=== PATIENT | female | born 1945 | race Caucasian/White ===

== ENCOUNTER → 2016-10-01 | Outpatient (CLI) | payer MEDICARE, MEDICAID | LOC: OD 07:35 | PROVIDERS: ATTEND Internal Medicine | DX: I50.32 Chronic diastolic (congestive) heart failure (principal); I10 Essential (primary) hypertension; I25.10 Atherosclerotic heart disease of native coronary artery without angina pectoris; Z95.1 Presence of aortocoronary bypass graft; R01.1 Cardiac murmur, unspecified; E78.4 Other hyperlipidemia; I47.1 Supraventricular tachycardia; J44.9 Chronic obstructive pulmonary disease, unspecified; J45.998 Other asthma; R09.89 Other specified symptoms and signs involving the circulatory and respiratory systems; E11.9 Type 2 diabetes mellitus without complications; Z79.899 Other long term (current) drug therapy | CPT/HCPCS: 83880 ==

== ENCOUNTER → 2016-10-09 | Outpatient (CLI) | payer MEDICARE, MEDICAID ==
[2016-10-09 08:27] LABS: APPEARANCE,URINE SLIGHTLY-CLOUDY; BILIRUBIN,URINE NEGATIVE (NEGATIVE); GLUCOSE, URINE NEGATIVE (NEGATIVE); KETONES,URINE NEGATIVE (NEGATIVE); LEUKOCYTE ESTERASE,URINE SMALL (NEGATIVE); NITRITE,URINE POSITIVE (NEGATIVE); PROTEIN,URINE NEGATIVE (NEGATIVE); URINE SPECIFIC GRAVITY 1.019; UROBILINOGEN,URINE NEGATIVE mg/dL (<2.0)
[2016-10-09 08:28] LABS: ABSOLUTE BASOPHILS # (AUTO) 0.1 10^3/uL (0.0-0.2); ABSOLUTE EOSINOPHILS # (AUTO) 0.1 10^3/uL (0.0-0.6); ABSOLUTE LYMPHOCYTES (AUTO) 4.2 10^3/uL (0.5-4.7); ABSOLUTE MONOCYTES (AUTO) 0.7 10^3/uL (0.1-1.4); ABSOLUTE NEUT (AUTO) 6.1 10^3/uL (1.7-8.2); BASOPHILS % (AUTO) 0.8 % (0-2); EOSINOPHILS % (AUTO) 0.9 % (0-6); HEMATOCRIT 38.7 % (36.0-47.0); HEMOGLOBIN 12.2 g/dL (12.0-15.5); HGB HCT DIFFERENCE -2.1; LYMPHOCYTES % (AUTO) 37.3 % (13-45); MEAN CORPUSCULAR HEMOGLOBIN 24.6 pg (27.0-33.4); MEAN CORPUSCULAR HGB CONC 31.5 g/dL (32.0-36.0); MEAN CORPUSCULAR VOLUME 78 fl (80-97); MONOCYTES % (AUTO) 6.6 % (3-13); RED BLOOD COUNT 4.96 10^6/uL (3.72-5.28); RED CELL DISTRIBUTION WIDTH 24.2 % (11.5-14.0); SEGMENTED NEUTROPHILS % (AUTO) 54.4 % (42-78); WHITE BLOOD COUNT 11.2 10^3/uL (4.0-10.5)
[2016-10-09 08:49] LABS: ANISOCYTOSIS 3+; OVALOCYTES SLIGHT; POIKILOCYTOSIS SLIGHT; POLYCHROMASIA SLIGHT; STOMATOCYTES 1+; TOXIC GRANULATION SLIGHT
[2016-10-09 08:57] LABS: ALANINE AMINOTRANSFERASE 25 U/L (9-52); ALBUMIN 3.6 g/dL (3.5-5.0); ALKALINE PHOSPHATASE 61 U/L (38-126); ANION GAP 7 (5-19); ASPARTATE AMINO TRANSFERASE 13 U/L (14-36); BILIRUBIN,TOTAL 0.4 mg/dL (0.2-1.3); BLOOD UREA NITROGEN 24 mg/dL (7-20); CALCIUM 9.4 mg/dL (8.4-10.2); CARBON DIOXIDE 29 mmol/L (22-30); CHLORIDE 106 mmol/L (98-107); CHOLESTEROL 189.87 mg/dL (0-200); CREATININE RESULT 0.75 mg/dL (0.52-1.25); Direct HDL 65 mg/dL (>40); GLUCOSE 73 mg/dL (75-110); POTASSIUM 4.2 mmol/L (3.6-5.0); SODIUM 141.8 mmol/L (137-145); TOTAL PROTEIN 6.2 g/dL (6.3-8.2); TRIGLYCERIDES 91 mg/dL (<150)
[2016-10-09 09:07] LABS: DIRECT LDL 95 mg/dL (<100)
[2016-10-09 09:25] LABS: FERRITIN 9.11 ng/mL (11.1-264.0)
== END ==
LOC: OD 07:25
PROVIDERS: ATTEND Internal Medicine Nephrology
DX: E11.9 Type 2 diabetes mellitus without complications (principal); E78.5 Hyperlipidemia, unspecified; D64.9 Anemia, unspecified; R33.9 Retention of urine, unspecified
CPT/HCPCS: 36415; 80053; 80061; 81001; 82728; 83036; 83540; 83550; 85025; 87086; 87088; 87186

== ENCOUNTER → 2016-11-01 | Outpatient (CLI) | payer MEDICARE, MEDICAID ==
[2016-11-01 08:41] LABS: AMORPHOUS SEDIMENT,URINE TRACE /HPF; APPEARANCE,URINE CLEAR; BILIRUBIN,URINE NEGATIVE (NEGATIVE); GLUCOSE, URINE NEGATIVE (NEGATIVE); KETONES,URINE NEGATIVE (NEGATIVE); LEUKOCYTE ESTERASE,URINE NEGATIVE (NEGATIVE); NITRITE,URINE NEGATIVE (NEGATIVE); PROTEIN,URINE NEGATIVE (NEGATIVE); URINE SPECIFIC GRAVITY 1.009; UROBILINOGEN,URINE NEGATIVE mg/dL (<2.0)
[2016-11-01 08:52] LABS: ABSOLUTE EOSINOPHILS # (AUTO) 0.1 10^3/uL (0.0-0.6); ABSOLUTE LYMPHOCYTES (AUTO) 3.3 10^3/uL (0.5-4.7); ABSOLUTE MONOCYTES (AUTO) 0.7 10^3/uL (0.1-1.4); BASOPHILS % (AUTO) 0.4 % (0-2); EOSINOPHILS % (AUTO) 0.9 % (0-6); HEMATOCRIT 37.9 % (36.0-47.0); HGB HCT DIFFERENCE -1.9; LYMPHOCYTES % (AUTO) 32.3 % (13-45); MEAN CORPUSCULAR HEMOGLOBIN 25.2 pg (27.0-33.4); MEAN CORPUSCULAR HGB CONC 31.7 g/dL (32.0-36.0); MEAN CORPUSCULAR VOLUME 80 fl (80-97); RED BLOOD COUNT 4.77 10^6/uL (3.72-5.28); SEGMENTED NEUTROPHILS % (AUTO) 59.4 % (42-78); WHITE BLOOD COUNT 10.1 10^3/uL (4.0-10.5)
[2016-11-01 09:09] LABS: ANION GAP 9 (5-19); BLOOD UREA NITROGEN 25 mg/dL (7-20); CALCIUM 9.5 mg/dL (8.4-10.2); CARBON DIOXIDE 31 mmol/L (22-30); CHLORIDE 106 mmol/L (98-107); CREATININE RESULT 0.64 mg/dL (0.52-1.25); GLUCOSE 67 mg/dL (75-110); POTASSIUM 3.6 mmol/L (3.6-5.0); SODIUM 145.6 mmol/L (137-145)
--- NOTE | 2016-11-01 10:23 | EKG REPORT ---
SEVERITY:- ABNORMAL ECG - PACEMAKER SPIKES OR ARTIFACTS SINUS RHYTHM PROBABLE LEFT ATRIAL ABNORMALITY : Confirmed by: Osiris Rider 01-Nov-2016 10:22:19
== END ==
LOC: OD 07:34
PROVIDERS: ATTEND Orthopaedic Surgery
DX: Z01.818 Encounter for other preprocedural examination (principal); Z01.810 Encounter for preprocedural cardiovascular examination; Z01.812 Encounter for preprocedural laboratory examination
CPT/HCPCS: 36415; 71020; 80048; 81001; 85025; 93005; 93010

== ENCOUNTER 2016-11-16 21:20 | Inpatient (IN) | payer MEDICARE, MEDICAID ==
--- NOTE | 2016-11-16 21:26 | ER Document Report ---
ED Medical Screen (RME) - General Stated Complaint: DIFFICULTY BREATHING Notes: Maninder states that is having increased difficulty breathing since Saturday night. Did have a fever 101.7, patient is coughing and wheezing. Patient is on 3 L of oxygen during the day, 5 L at night with CPAP. Patient has history of COPD. I have greeted and performed a rapid initial assessment of this patient. A comprehensive ED assessment and evaluation of the patient, analysis of test results and completion of the medical decision making process will be conducted by additional ED providers. TRAVEL OUTSIDE OF THE [place] IN LAST 30 DAYS: No - Related Data Allergies/Adverse Reactions: vancomycin Allergy (Verified 07/29/16 11:57) Generalized Itching levofloxacin Adverse Reaction (Verified 07/29/16 14:06) Diarrhea linezolid [From Zyvox] Adverse Reaction (Verified 07/29/16 14:06) Diarrhea Past Medical History - Past Medical History Cardiac Medical History: Reports: Hx Congestive Heart Failure - Lasix , Hx Coronary Artery Disease - CABG, Hx Hypercholesterolemia - zocor , Hx Hypertension Denies: Hx Atrial Fibrillation, Hx DVT, Hx Heart Attack, Hx Peripheral Vascular Disease, Hx Pulmonary Embolism, Hx Heart Murmur Pulmonary Medical History: Reports: Hx Asthma, Hx COPD, Hx Pneumonia - MRSA 2014 , Hx Sleep Apnea - bipap , Hx Tuberculosis - +PPD in s - on meds x 1 year Denies: Hx Bronchitis, Hx Respiratory Failure Neurological Medical History: Denies: Hx Cerebrovascular Accident, Hx Seizures Endocrine Medical History: Reports: Hx Diabetes Mellitus Type 1, Hx Diabetes Mellitus Type 2. Denies: Hx Graves' Disease, Hx Hyperthyroidism, Hx Hypothyroidism Renal/ Medical History: Denies: Hx End Stage Renal Disease, Hx Kidney Stones, Hx Ovarian Cysts, Hx Peritoneal Dialysis, Hx Pelvic Inflammatory Disease Malignancy Medical History: Denies: Hx Breast Cancer, Hx Cervical Cancer, Hx Leukemia, Hx Lung Cancer, Hx Ovarian Cancer GI Medical History: Reports: Hx Gastroesophageal Reflux Disease. Denies: Hx Cirrhosis, Hx Crohn's Disease, Hx Hepatitis, Hx Hiatal Hernia, Hx Irritable Bowel, Hx Liver Failure, Hx Ulcer Musculoskeltal Medical History: Reports Hx Arthritis, Denies Hx Fibromyalgia, Denies Hx Muscular Dystrophy Skin Medical History: Denies Hx Eczema, Denies Hx Psoriasis Psychiatric Medical History: Reports: Hx Anxiety, Hx Depression Denies: Hx Bipolar Disorder, Hx Post Traumatic Stress Disorder, Hx Schizophrenia Traumatic Medical History: Reports: Hx Fractures - lumbar Infectious Medical History: Reports: Hx MRSA - Reported MRSA pneumonia, 2015. Denies: Hx Hepatitis, Hx HIV Past Surgical History: Reports: Hx Appendectomy, Hx Cardiac Surgery - CABGx2, Hx Cholecystectomy, Hx Coronary Artery Bypass Graft - 2009 x 2 grafts , Hx Hysterectomy, Hx Open Heart Surgery - 3v, Hx Orthopedic Surgery - Left footsurgery, cyst removal from left hand, Hx Tonsillectomy. Denies: Hx Bowel Surgery, Hx Section, Hx Colostomy, Hx Gastric Bypass Surgery, Hx Herniorrhaphy, Hx Mastectomy, Hx Pacemaker, Hx Tubal Ligation - Immunizations Hx Diphtheria, Pertussis, Tetanus Vaccination: Yes Physical Exam - Respiratory Respiratory status: Labored, Pursed lip breathing Breath sounds: Decreased air movement, Wheezing - audible wheezing
[2016-11-16 21:55] LABS: ABSOLUTE BASOPHILS # (AUTO) 0.1 10^3/uL (0.0-0.2); ABSOLUTE LYMPHOCYTES (AUTO) 1.6 10^3/uL (0.5-4.7); ABSOLUTE NEUT (AUTO) 10.9 10^3/uL (1.7-8.2); BASOPHILS % (AUTO) 0.7 % (0-2); EOSINOPHILS % (AUTO) 0.2 % (0-6); HEMOGLOBIN 11.8 g/dL (12.0-15.5); HGB HCT DIFFERENCE -1.6; MEAN CORPUSCULAR HEMOGLOBIN 24.8 pg (27.0-33.4); MEAN CORPUSCULAR HGB CONC 31.8 g/dL (32.0-36.0); MEAN CORPUSCULAR VOLUME 78 fl (80-97); MONOCYTES % (AUTO) 7.1 % (3-13); RED BLOOD COUNT 4.75 10^6/uL (3.72-5.28); RED CELL DISTRIBUTION WIDTH 18.2 % (11.5-14.0); WHITE BLOOD COUNT 13.6 10^3/uL (4.0-10.5)
[2016-11-16] MEDS ORDERED: ALBUTEROL SULFATE 0.083% NEB 2.5 MG/3 ML AMPUL NEB ONE ×3 (22:10→22:56)
[2016-11-16] MEDS ORDERED: IPRATROPIUM/ALBUTEROL 0.5-2.5 MG/3 ML AMPUL NEB ONE ×2 (22:10→22:12)
[2016-11-16] MEDS ORDERED: METHYLPREDNISOLONE INJ 125 MG/2 ML SDV IV ONE (22:10)
[2016-11-16 22:15] LABS: ALANINE AMINOTRANSFERASE 19 U/L (9-52); ALBUMIN 3.8 g/dL (3.5-5.0); ALKALINE PHOSPHATASE 77 U/L (38-126); ANION GAP 11 (5-19); ASPARTATE AMINO TRANSFERASE 12 U/L (14-36); BILIRUBIN,DIRECT 0.1 mg/dL (0.0-0.4); BILIRUBIN,TOTAL 0.7 mg/dL (0.2-1.3); BLOOD UREA NITROGEN 14 mg/dL (7-20); CALCIUM 9.6 mg/dL (8.4-10.2); CARBON DIOXIDE 26 mmol/L (22-30); CHLORIDE 103 mmol/L (98-107); CREATININE RESULT 0.78 mg/dL (0.52-1.25); GLUCOSE 108 mg/dL (75-110); POTASSIUM 3.9 mmol/L (3.6-5.0); SODIUM 139.7 mmol/L (137-145)
[2016-11-16] MEDS ORDERED: MAGNESIUM SULFATE/D5W 1 GM/100 ML RTUPB IV ONE ×2 (22:56)
--- NOTE | 2016-11-16 23:12 | ER Document Report ---
ED Respiratory Problem - General Chief Complaint: Breathing Difficulty Stated Complaint: DIFFICULTY BREATHING Time seen by provider: 23:12 Mode of Arrival: Ambulatory Information source: Patient TRAVEL OUTSIDE OF THE [place] IN LAST 30 DAYS: No - HPI Patient complains to provider of: COPD, Cough, Short of breath Onset: Other - 2-3 days Duration: Worse/persistent Initiating Event: URI Quality of pain: No pain Severity: Moderate Context: Hx COPD Short of Breath: Severe Chest pain/discomfort: Tightness Cough: Nonproductive At home treatment: Bronchodilators, Oral steroids, Oxygen Associated symptoms: Cough, Difficulty breathing, Short of breath Similar symptoms previously: Yes Recently seen / treated by doctor: Yes Notes: Patient is a 71-year-old female with a history of COPD, who is a former smoker, who presents to the emergency room today complaining of difficulty breathing that's been worsening over the past 2-3 days, she reports a fever of 101 today, her cough is nonproductive, she used her albuterol nebulizer treatments 3 times throughout the day today with minimal intermittent relief, she is on 3 L of oxygen at home daily, with C Pap to use at night, she is also currently on prednisone, patient denies chest pain - Related Data Allergies/Adverse Reactions: vancomycin Allergy (Verified 07/29/16 11:57) Generalized Itching levofloxacin Adverse Reaction (Verified 07/29/16 14:06) Diarrhea linezolid [From Zyvox] Adverse Reaction (Verified 07/29/16 14:06) Diarrhea Past Medical History - General Information source: Patient - Social History Smoking Status: Former Smoker Chew tobacco use (# tins/day): No Frequency of alcohol use: None Drug Abuse: None Family History: DM, Hypertension Patient has suicidal ideation: No Patient has homicidal ideation: No - Past Medical History Cardiac Medical History: Reports: Hx Congestive Heart Failure - Lasix , Hx Coronary Artery Disease - CABG, Hx Hypercholesterolemia - zocor , Hx Hypertension Denies: Hx Atrial Fibrillation, Hx DVT, Hx Heart Attack, Hx Peripheral Vascular Disease, Hx Pulmonary Embolism, Hx Heart Murmur Pulmonary Medical History: Reports: Hx Asthma, Hx COPD, Hx Pneumonia - MRSA 2014 , Hx Sleep Apnea - bipap , Hx Tuberculosis - +PPD in s - on meds x 1 year Denies: Hx Bronchitis, Hx Respiratory Failure Neurological Medical History: Denies: Hx Cerebrovascular Accident, Hx Seizures Endocrine Medical History: Reports: Hx Diabetes Mellitus Type 1, Hx Diabetes Mellitus Type 2. Denies: Hx Graves' Disease, Hx Hyperthyroidism, Hx Hypothyroidism Renal/ Medical History: Denies: Hx End Stage Renal Disease, Hx Kidney Stones, Hx Ovarian Cysts, Hx Peritoneal Dialysis, Hx Pelvic Inflammatory Disease Malignancy Medical History: Denies: Hx Breast Cancer, Hx Cervical Cancer, Hx Leukemia, Hx Lung Cancer, Hx Ovarian Cancer GI Medical History: Reports: Hx Gastroesophageal Reflux Disease. Denies: Hx Cirrhosis, Hx Crohn's Disease, Hx Hepatitis, Hx Hiatal Hernia, Hx Irritable Bowel, Hx Liver Failure, Hx Ulcer Musculoskeltal Medical History: Reports Hx Arthritis, Denies Hx Fibromyalgia, Denies Hx Muscular Dystrophy Skin Medical History: Denies Hx Eczema, Denies Hx Psoriasis Psychiatric Medical History: Reports: Hx Anxiety, Hx Depression Denies: Hx Bipolar Disorder, Hx Post Traumatic Stress Disorder, Hx Schizophrenia Traumatic Medical History: Reports: Hx Fractures - lumbar Infectious Medical History: Reports: Hx MRSA - Reported MRSA pneumonia, 2014. Denies: Hx Hepatitis, Hx HIV Past Surgical History: Reports: Hx Appendectomy, Hx Cardiac Surgery - CABGx2, Hx Cholecystectomy, Hx Coronary Artery Bypass Graft - 2008 x 2 grafts , Hx Hysterectomy, Hx Open Heart Surgery - 3v, Hx Orthopedic Surgery - Left footsurgery, cyst removal from left hand, Hx Tonsillectomy. Denies: Hx Bowel Surgery, Hx Section, Hx Colostomy, Hx Gastric Bypass Surgery, Hx Herniorrhaphy, Hx Mastectomy, Hx Pacemaker, Hx Tubal Ligation - Immunizations Hx Diphtheria, Pertussis, Tetanus Vaccination: Yes Hx Pneumococcal Vaccination: 08/26/12 Review of Systems - Review of Systems Constitutional: No symptoms reported EENT: No symptoms reported Cardiovascular: No symptoms reported Respiratory: See HPI Gastrointestinal: No symptoms reported Genitourinary: No symptoms reported Female Genitourinary: No symptoms reported Musculoskeletal: No symptoms reported Skin: No symptoms reported Hematologic/Lymphatic: No symptoms reported Neurological/Psychological: No symptoms reported -: Yes All other systems reviewed and negative Physical Exam - Vital signs Vitals: Resp BP Pulse Ox 35 H 125/78 91 L 11/16/16 22:15 11/16/16 22:15 11/16/16 22:15 Interpretation: Tachycardic, Hypoxic - General General appearance: Alert In distress: Moderate - HEENT Head: Normocephalic, Atraumatic Eyes: Normal Conjunctiva: Normal Extraocular movements intact: Yes Eyelashes: Normal Pupils: PERRL Pharynx: Normal Neck: Normal - Respiratory Respiratory status: Labored, Pursed lip breathing, Tachypnea Chest status: Nontender Breath sounds: Decreased air movement, Nonproductive cough, Wheezing Chest palpation: Normal - Cardiovascular Rhythm: Regular, Tachycardia Heart sounds: Normal auscultation Murmur: No - Abdominal Inspection: Normal Distension: No distension Bowel sounds: Normal Tenderness: Nontender Organomegaly: No organomegaly - Back Back: Normal, Nontender - Extremities General upper extremity: Normal inspection, Nontender, Normal color, Normal ROM , Normal temperature General lower extremity: Normal inspection, Nontender, Normal color, Normal ROM , Normal temperature, Normal weight bearing. No: Boogie's sign - Neurological Neuro grossly intact: Yes Cognition: Normal Orientation: AAOx4 Dmitry Coma Scale Eye Opening: Spontaneous Dmitry Coma Scale Verbal: Oriented Dmitry Coma Scale Motor: Obeys Commands [place] Coma Scale Total: 15 Speech: Normal Motor strength normal: LUE, RUE, LLE, RLE Sensory: Normal - Psychological Associated symptoms: Normal affect, Normal mood - Skin Skin Temperature: Warm Skin Moisture: Dry Skin Color: Normal Course - Re-evaluation Re-evalutation: 11/17/16 03:23 Patient resting comfortably on BiPAP, discussed with the hospitalist who agrees to admit for further evaluation and treatment of COPD exacerbation with likely viral upper respiratory illness - Vital Signs Vital signs: Temp Pulse Resp BP Pulse Ox 29 H 113/51 L 86 L 11/17/16 01:00 11/17/16 01:00 11/17/16 01:00 - Laboratory Result Diagrams: 11/16/16 21:47 11/16/16 21:47 Laboratory results interpreted by me: 11/16/16 11/16/16 21:47 21:47 WBC 13.6 H Hgb 11.8 L MCV 78 L MCH 24.8 L MCHC 31.8 L RDW 18.2 H Seg Neutrophils % 80.0 H Lymphocytes % 12.0 L Absolute Neutrophils 10.9 H AST 12 L Total Protein 6.0 L - Diagnostic Test Radiology reviewed: Image reviewed, Reports reviewed - EKG Interpretation by Me EKG shows normal: Sinus rhythm Rate: Normal Rhythm: NSR When compared to previous EKG there are: No significant change - Transfer of Care Care transferred to following provider: Dr. Mahoney Critical Care Note - Critical Care Note Total time excluding time spent on procedures (mins): 60 Comments: Patient with COPD exacerbation, hypoxic on arrival, requiring multiple breathing treatments, multiple re-evaluations and eventually BiPAP placement and admission to the IMCU Discharge - Discharge Clinical Impression: Obstructive chronic bronchitis with exacerbation Condition: Serious Disposition: ADMITTED INPATIENT Admitting Provider: Hospitalist Unit Admitted: [facility]
[2016-11-16] MEDS ORDERED: AZITHROMYCIN INJ 500 MG VIAL IV ONE (23:27)
[2016-11-16 23:33] LABS: CREATINE KINASE MB 0.25 ng/mL (<4.55); TROPONIN I 0.014 ng/mL
[2016-11-17 01:41] LABS: VENOUS BLOOD BASE EXCESS 2.6 mmol/L; VENOUS BLOOD HCO3 28.3 mmol/L (20-32); VENOUS BLOOD PCO2 48.2 mmHg (35-63); VENOUS BLOOD PH 7.39 (7.30-7.42)
[2016-11-17] MEDS ORDERED: ALBUTEROL SULFATE 0.083% NEB 2.5 MG/3 ML AMPUL NEB ONE (02:01)
[2016-11-17] MEDS ORDERED: GLUCAGON,HUMAN RECOMB 1 MG INJ IM PRN (02:49)
[2016-11-17] MEDS ORDERED: DEXTROSE 40% GEL 15 GM TUBE PO PRN ×2 (02:49)
[2016-11-17] MEDS ORDERED: DEXTROSE 50%-WATER 25 GM/50 ML DISP.SYRIN IV PRN ×2 (02:49)
[2016-11-17] MEDS ORDERED: NICOTINE 14 MG/24 HR PATCH.TD24 TD PRN (02:50)
[2016-11-17] MEDS ORDERED: ACETAMINOPHEN 325 MG TABLET PO PRN (02:51)
[2016-11-17] MEDS ORDERED: GUAIFENESIN SYRP 200 MG/10 ML UDC PO PRN (02:51)
[2016-11-17] MEDS ORDERED: CEFEPIME 2 GM/D5W RTU 2 GM/50 ML RTUPB IV SCH (03:00)
--- NOTE | 2016-11-17 03:23 | PDOC H&P ---
History of Present Illness Admission Date/PCP: 11/17/16 01:[address] Hamilton Pul[address] Dr[address] Garcia Patient complains of: Difficulty breathing History of Present Illness: DAGO GRAFF is a 71 year old female, long-term smoker, half a pack per day at present, with 3 L oxygen per nasal cannula 24/7 Home O2 dependent COPD, who presents to the emergency room for evaluation of a 2 to three-day history of slowly progressive difficulty breathing, in particular with much of any exertion. Mostly a dry cough. Fever to 101. Increased use of albuterol nebulizer at home, without relief. No chest or abdominal pain. No nausea vomiting, fever or chills. Has been intubated 3 times in the past for respiratory difficulty. Hospitalized on our service August 05 through the of last year with discharge diagnoses including aspiration pneumonia with respiratory failure and hypoglycemia. Discharge summary has been reviewed. Was admitted to our service May 22 of last year for cough and shortness of breath. History and physical has been reviewed. Patient has been discussed with emergency room physician who evaluated the patient. . Laboratory results are listed in [employer] and are reviewed. X-ray summary results are listed below, with full report(s) reviewed. . EKG reviewed. Social history/personal habits: . One son. Retired. No alcohol or illicit drug use. Half-pack of cigarettes per day. Allergies/adverse reactions are listed in [employer] and are reviewed. Home medications are to [facility] reconc[facility]. Home medications initially autopopulated into [facility] may not accurately reflect patient's true medications, dosages, and/or frequencies. REVIEW OF SYSTEMS: Constitutional: See history and present illness. Eyes: Wears glasses. ENT: No swallowing problems or complaints. No hearing problems or complaints. Pulmonary: See history and present illness. Cardiovascular: No current complaints, including chest pain. Gastrointestinal: No current complaints, including nausea or vomiting. Skin: No current complaints, including rashes. Hematologic: Easy bruising. Neurologic: No current complaints, including numbness or tingling. Musculoskeletal: Joint pain from arthritis. Psychiatric: Anxiety Endocrine: No current complaints, including polyuria. Genitourinary: No current complaints, including dysuria. PHYSICAL EXAMINATION: 5 feet 1 inches tall. 75 kg. BMI 31.2 kg/m. Temperature not recorded on chart; skin feels normothermic. Blood pressure 116/56. Pulse 84 and regular. 93% saturation on BiPAP 12/6, 65% FiO2. Respirations are 28 and unlabored. Slightly obese otherwise well-developed though chronically ill-appearing female who appears a number of years older than her stated age. Awake alert pleasant and cooperative. Appears to feel a bit under the weather, so to speak. Mildly anxious. No agitation. Skin is warm and dry. No grossly obvious evidence of rash in areas of skin examined. No subcutaneous nodules palpated. ENT: Hearing grossly normal Mildly hard of hearing to normal conversation. Tongue midline on protrusion pink and slightly tacky. Exam slightly limited by BiPAP mask with attaching straps. Eyes: No scleral icterus. Pupils equal and reactive to light at 4 mm. [place] conjunctivae. Neck is supple and nontender to gentle active range of motion and palpation. Midline trachea. No palpable thyroid nodule mass enlargement or tenderness. Lymphatic: No palpable cervical or clavicular nodes. Neck and lymphatic exams limited by patient body habitus. Exam slightly limited by BiPAP mask with attaching straps. Psychiatric: Reasonable insight into acute and chronic medical issues. Oriented to time location and why here. Lungs: Auscultation reveals equal breath sounds bilaterally. No use of accessory respiratory muscles. Coarse breath sounds bilaterally, with primarily expiratory wheezing. Patient states she typically does not wheeze on a regular day. Cardiovascular: Heart regular rate and rhythm, without gallop murmur or rub. No abdominal aortic bruits. Airway sounds from BiPAP device make it difficult to auscultate carotid bruits. No ankle or pedal edema. Faintly palpable dorsalis pedis pulses. Abdomen: soft, slightly obese, nontender with positive bowel sounds. Unable to adequately evaluate abdomen for masses or organomegaly due to body habitus. Extremities: Feet are warm and dry. No calf tenderness to compression. No grossly obvious visual evidence of calf swelling. Gentle manipulation of lower extremities fails to reveal any obvious evidence of injury or instability to knees hips or ankles. Neurologic: Moves upper extremities grossly normally. Patellar reflexes absent. Absent Babinski. Light touch is intact at feet. Dorsiflexion and plantarflexion of feet 5 / 5 and symmetric. Past Medical History Past Medical History: For further information related to her medical history, please refer to history and present illness, May [id number]. Cardiac Medical History: Reports: Congestive Heart Failure - Lasix , Coronary Artery Disease - CABG, Hyperlipidema - zocor , Hypertension Denies: Atrial Fibrillation, DVT, Myocardial Infarction, Peripheral Vascular Disease, Pulmonary Embolism, Heart Murmur Pulmonary Medical History: Reports: Asthma, Chronic Obstructive Pulmonary Disease (COPD), Pneumonia - MRSA 2014 , Sleep Apnea - bipap , Tuberculosis - + PPD in 1960s - on meds x 1 year Denies: Bronchitis, Respiratory Failure Neurological Medical History: Denies: Seizures Endocrine Medical History: Reports: Diabetes Mellitus Type 1 Denies: Hyperthyroidism, Hypothyroidism Renal/ Medical History: Denies: End Stage Renal Disease Malignancy Medical History: Denies: Breast Cancer, Cervical Cancer, Leukemia, Lung Cancer, Ovarian Cancer GI Medical History: Reports: Gastroesophageal Reflux Disease Denies: Cirrhosis, Crohn's Disease, Hepatitis, Hiatal Hernia Musculoskeltal Medical History: Reports: Arthritis Denies: Fibromyalgia Skin Medical History: Denies: Eczema, Psoriasis Psychiatric Medical History: Reports: Depression Denies: Bipolar Disorder, Post Traumatic Stress Disorder Hematology: Reports: Anemia - occ Denies: Hemophilia, Sickle Cell Disease Infectious Medical History: Reports: 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 MRSA pneumonia, 2014 Denies: Clostridium Difficile, HIV Past Surgical History Past Surgical History: Reports: Appendectomy, Cholecystectomy, Coronary Artery Bypass Graft - 2009 x 2 grafts , Hysterectomy, Orthopedic Surgery - Left footsurgery, cyst removal from left hand, Tonsillectomy Denies: Amputation, Section, Colostomy, Gastric Bypass Surgery, Herniorrhaphy, Mastectomy, Pacemaker, Tubal Ligation Social History Information Source: Patient, Emergency Med Personnel, [facility] Records Lives with: Spouse/Significant other Smoking Status: Current Every Day Smoker Frequency of Alcohol Use: None Hx Recreational Drug Use: No Drugs: None Hx Prescription Drug Abuse: No - Advance Directive Resuscitation Status: Full Code Surrogate healthcare decision maker:: Family History Family History: CAD, DM, Hypertension Parental Family History Reviewed: Yes Children Family History Reviewed: Yes Sibling(s) Family History Reviewed.: Yes Medication/Allergy Home Medications: Aspirin [Aspirin EC] 81 mg PO DAILY 11/17/16 Atorvastatin Calcium [Lipitor 40 mg Tablet] 40 mg PO QHS 11/17/16 Cyanocobalamin (Vitamin B-12) [Vitamin B-12 500 mcg Tablet] 500 mcg PO QAM 11/17 Insulin Aspart [Novolog Flexpen] 0 unit SUBCUT .PERSLDINGSCALE 11/17/16 Insulin Glargine,Hum.rec.anlog [Lantus Solostar] 15 unit SQ QHS 11/17/16 Iron Polysaccharide Complex [Ferrex 150] 150 mg PO DAILY 11/17/16 Lidocaine [Lidoderm] 1 each TP Q12 11/17/16 Losartan Potassium [Cozaar 25 mg Tablet] 25 mg PO DAILY 11/17/16 Metoprolol Succinate [Toprol Xl 25 mg Tab.sr] 25 mg PO Q12 11/17/16 Nitroglycerin [Nitro-Dur 10 mg (0.4MG/Hr) Transdermal Patch] 1 each TD DAILY Olopatadine HCl [Pataday] 2.5 ml OU ASDIR PRN 11/17/16 Oxycodone HCl/Acetaminophen [Percocet 10-325 Mg Tablet] 1 tab PO Q6HP PRN Potassium Chloride [Klor-Con 10 Meq Tablet.sa] 10 meq PO DAILY 11/17/16 Prednisone [Deltasone 5 mg Tablet] 5 mg PO Q2D 11/17/16 Prednisone [Deltasone 5 mg Tablet] 5 mg PO Q3D 11/17/16 Pregabalin [Lyrica 50 Mg Capsule] 50 mg PO Q8 11/17/16 RX: Omeprazole 20 mg PO DAILY 11/17/16 RX: Theophylline Anhydrous 300 mg PO DAILY 11/17/16 Ranolazine [Ranexa 500 mg Tab.sr] 500 mg PO Q12 11/17/16 Roflumilast [Daliresp 500 mcg Tablet] 500 mcg PO DAILY 11/17/16 Ropinirole HCl [Requip 2 Mg Tablet] 2 mg PO QHS 11/17/16 Torsemide [Demadex 20 mg Tablet] 20 mg PO DAILY 11/17/16 Allergies/Adverse Reactions: vancomycin Allergy (Verified 07/29/16 11:57) Generalized Itching levofloxacin Adverse Reaction (Verified 07/29/16 14:06) Diarrhea linezolid [From Zyvox] Adverse Reaction (Verified 07/29/16 14:06) Diarrhea Physical Exam Vital Signs: Temp Pulse Resp BP Pulse Ox 29 H 113/51 L 86 L 11/17/16 01:00 11/17/16 01:00 11/17/16 01:00 Intake & Output 11/16/16 11/17/16 11/18/16 00:59 00:59 00:59 Weight 75 kg Results Impressions: Chest X-Ray 11/16/16 21:30 IMPRESSION: COPD. NO ACUTE RADIOGRAPHIC FINDING IN THE CHEST OR SIGNIFICANT CHANGE FROM PRIOR STUDY. Assessment & Plan - Diagnosis (1) Type 1 diabetes mellitus Qualifiers: Diabetes mellitus complication status: with unspecified complications Qualified Code(s): E10.8 - Type 1 diabetes mellitus with unspecified complications Is this a current diagnosis for this admission?: YesPlan: Ice chips only while on BiPAP. Accu-Cheks with appropriate sliding scale coverage.Resume home medications as appropriate once these have been determined and reviewed. (2) Acute and chronic respiratory failure with hypercapnia Is this a current diagnosis for this admission?: YesPlan: Patient will be admitted under COPD exacerbation protocol. Incentive spirometry twice a day. Scheduled DuoNeb's. PRN albuterol nebs Solu-Medrol Prevacid for gastritis prophylaxis. Antibiotics will consist of intravenous Zithromax and cefepime. Rapid flu is pending.. I strongly encouraged patient to notify staff should patient feel that respiratory status is worsening. Patient is a full code. I have strongly encouraged patient not to get out of bed without notifying staff , , to avoid a fall with injury. Knee high SCDs for DVT prophylaxis, along with subcutaneous Lovenox Impression and plans were discussed with patient, who concurs. Time spent in evaluation and management of patient: 59 minutes. (3) COPD exacerbation Is this a current diagnosis for this admission?: Yes (4) Hyperlipidemia Qualifiers: Hyperlipidemia type: unspecified Qualified Code(s): E78.5 - Hyperlipidemia, unspecified Is this a current diagnosis for this admission?: YesPlan: Resume home medications as appropriate once these have been determined and reviewed. (5) Hypertension Qualifiers: Hypertension type: essential hypertension Qualified Code(s): I10 - Essential (primary) hypertension Is this a current diagnosis for this admission?: YesPlan: Resume home medications as appropriate once these have been determined and reviewed. (6) Obstructive sleep apnea Is this a current diagnosis for this admission?: YesPlan: CPAP once BiPAP is no longer required. (7) Tobacco dependency Is this a current diagnosis for this admission?: YesPlan: When necessary nicotine patch. - Inpatient Certification Based on my medical assessment, after consideration of the patient's comorbidities, presenting symptoms, or acuity I expect that the services needed warrant INPATIENT care.: Yes I certify that my determination is in accordance with my understanding of Medicare's requirements for reasonable and necessary INPATIENT services [42 CFR 412.3e].: Yes Medical Necessity: Significant Comorbidiites Make Outpatient Treatment Too Risky , Need Close Monitoring Due to Risk of Patient Decompensation, Need For IV Fluids, Need For Continuous Telemetry Monitoring, Need for Nebulizer Therapy and Monitoring of Response, Need for IV Antibiotics, Risk of Complication if Not Cared For in Hospital, Risk of Diagnosis Which Will Require Inpatient Eval/ Care/Monitoring Post Hospital Care: D/C or Transfer Summary
[2016-11-17] MEDS ORDERED: CEFEPIME INJ 1 GM VIAL IV PRN (03:28)
[2016-11-17 05:26] LABS: VENOUS BLOOD HCO3 28.8 mmol/L (20-32); VENOUS BLOOD PCO2 48.9 mmHg (35-63); VENOUS BLOOD PH 7.39 (7.30-7.42)
[2016-11-17 05:27] LABS: ABSOLUTE LYMPHOCYTES (AUTO) 0.8 10^3/uL (0.5-4.7); ABSOLUTE MONOCYTES (AUTO) 0.1 10^3/uL (0.1-1.4); ABSOLUTE NEUT (AUTO) 12.3 10^3/uL (1.7-8.2); BASOPHILS % (AUTO) 0.3 % (0-2); HEMATOCRIT 35.5 % (36.0-47.0); HEMOGLOBIN 11.3 g/dL (12.0-15.5); HGB HCT DIFFERENCE -1.6; MEAN CORPUSCULAR HEMOGLOBIN 24.6 pg (27.0-33.4); MEAN CORPUSCULAR HGB CONC 31.9 g/dL (32.0-36.0); MEAN CORPUSCULAR VOLUME 77 fl (80-97); MONOCYTES % (AUTO) 0.6 % (3-13); RED BLOOD COUNT 4.61 10^6/uL (3.72-5.28); RED CELL DISTRIBUTION WIDTH 17.3 % (11.5-14.0); SEGMENTED NEUTROPHILS % (AUTO) 93.1 % (42-78); WHITE BLOOD COUNT 13.2 10^3/uL (4.0-10.5)
[2016-11-17] MEDS: POTASSI CL 20 MEQ/NS 1L 1,000 ML IV PRN ×2 (05:39→16:52)
[2016-11-17 05:45] LABS: ANION GAP 13 (5-19); BLOOD UREA NITROGEN 15 mg/dL (7-20); CALCIUM 9.2 mg/dL (8.4-10.2); CARBON DIOXIDE 27 mmol/L (22-30); CHLORIDE 100 mmol/L (98-107); CREATININE RESULT 0.77 mg/dL (0.52-1.25); GLUCOSE 189 mg/dL (75-110); POTASSIUM 3.7 mmol/L (3.6-5.0); SODIUM 139.9 mmol/L (137-145)
[2016-11-17 06:14] LABS: APPEARANCE,URINE SLIGHTLY-CLOUDY; BILIRUBIN,URINE NEGATIVE (NEGATIVE); GLUCOSE, URINE NEGATIVE (NEGATIVE); KETONES,URINE NEGATIVE (NEGATIVE); LEUKOCYTE ESTERASE,URINE MODERATE (NEGATIVE); NITRITE,URINE NEGATIVE (NEGATIVE); PROTEIN,URINE NEGATIVE (NEGATIVE); URINE SPECIFIC GRAVITY 1.012; UROBILINOGEN,URINE NEGATIVE mg/dL (<2.0)
[2016-11-17] MEDS ORDERED: INFLUENZA ADLT QUAD (36MOS+) 2016-17 VAC 0.5 ML SYR IM PRN (08:34)
[2016-11-17] MEDS: IPRATROPIUM/ALBUTEROL 0.5-2.5 MG/3 ML AMPUL NEB SCH ×3 (08:35→19:31)
[2016-11-17] MEDS ORDERED: CEFEPIME HCL 2 GM in DEXTROSE 5%-WATER 50 ML IV SCH (10:00)
--- NOTE | 2016-11-17 10:22 | EKG REPORT ---
SEVERITY:- NORMAL ECG - SINUS RHYTHM : Confirmed by: Ming Coates MD 17-Nov-2016 10:21:44
[2016-11-17] MEDS: ENOXAPARIN SODIUM INJ 40 MG/0.4 ML DISP.SYRIN SUBCUT SCH (10:32)
[2016-11-17] MEDS: INSULIN LISPRO 100 UNIT/ML 3 ML VIAL SUBCUT PRN ×3 (10:32→22:11)
[2016-11-17] MEDS: LANSOPRAZOLE 30 MG TAB.RAP.DR PO SCH ×2 (10:33→16:54)
[2016-11-17] MEDS: METHYLPREDNISOLONE INJ 125 MG/2 ML SDV IV SCH ×3 (10:33→22:11)
[2016-11-17] MEDS ORDERED: (PENDING PHARMACY ID) (Olopatadine Hcl [Pataday] 2.5 ML) OU PRN (12:32)
--- NOTE | 2016-11-17 13:39 | PDOC PROGRESS REPORT ---
Subjective Progress Note for:: 11/17/16 Subjective:: Reason for visit: Follow-up COPD exacerbation, acute on chronic hypoxic respiratory failure Hospital course: Per H&P "DAGO GRAFF is a 71 year old female, long-term smoker, half a pack per day at present, with 3 L oxygen per nasal cannula during the day and 5 L at night. Home O2 dependent COPD, who presents to the emergency room for evaluation of a 2 to three-day history of slowly progressive difficulty breathing, in particular with much of any exertion. Mostly a dry cough. Fever to 101. Increased use of albuterol nebulizer at home , without relief. No chest or abdominal pain. No nausea vomiting, fever or chills. Has been intubated 3 times in the past for respiratory difficulty. Hospitalized on our service August 05 through the of last year while diagnoses including aspiration pneumonia with respiratory failure and hypoglycemia. Discharge summary has been reviewed. Was admitted to our service May 22 of last year for cough and shortness of breath. History and physical has been reviewed." Patient remains on BiPAP failing brief attempts to come off with increased shortness of breath and chest tightness. Review of the old record in July 2016 she underwent echocardiogram that showed 2/4 diastolic dysfunction, mild aortic stenosis, mild aortic regurgitation and mitral regurgitation, mild pulmonary hypertension. In September of this year she had a hemoglobin A1c of 6.0 Her cardiac enzymes, in particular her troponin, are chronically mildly elevated at the level they are now. Subjective: Continues to complain of chest tightness, wheezing, breathlessness with minimal exertion, fatigue, headache, general malaise and aches and pains. ROS: per HPI plus a total of 10 systems reviewed, pertinent positives and negatives noted above, remaining systems negative. Physical Exam Vital Signs: Temp Pulse Resp BP Pulse Ox 97.8 F 82 17 110/47 L 96 11/17/16 06:40 11/17/16 08:35 11/17/16 11:18 11/17/16 06:40 11/17/16 08:35 Intake & Output 11/16/16 11/17/16 11/18/16 06:59 06:59 06:59 Weight 73.5 kg EXAM GENERAL: NAD; well developed, well nourished; mild obese; alert and oriented to person, place, time, situation HEENT: normocephalic, atraumatic; no conjunctival injection, no scleral icterus ; oral mucosa moist; BiPAP mask in place RESPIRATORY: Abdominal accessory muscle use, mild increased WOB, poor air entry bilaterally; diffuse rhonchi; diffuse inspiratory crackles CARDIO: no JVD; RRR; no systolic murmur; no tachycardia GI: soft; nondistended; normal bowel sounds; no hepato spleno megaly; no rebound, rigidity, guarding VASCULAR: no carotid bruit; no abdominal bruit; no pallor; 2+ radial, DP pulse ; normal capillary refill EXTREMITIES: no calf tender; no palpable cords in calf; no clubbing, cyanosis , trace pedal edema PSYCH: normal affect, normal mood SKIN: warm; dry; no petechiae; no telengectasias; no jaundice; no rash Results Laboratory Results: 11/17/16 05:19 11/17/16 05:19 11/17/16 11/17/16 11/17/16 05:19 05:19 05:19 WBC 13.2 H RBC 4.61 Hgb 11.3 L Hct 35.5 L MCV 77 L MCH 24.6 L MCHC 31.9 L RDW 17.3 H Plt Count 258 Seg Neutrophils % 93.1 H Lymphocytes % 6.0 L Monocytes % 0.6 L Eosinophils % 0.0 Basophils % 0.3 Absolute Neutrophils 12.3 H Absolute Lymphocytes 0.8 Absolute Monocytes 0.1 Absolute Eosinophils 0.0 Absolute Basophils 0.0 VBG pH 7.39 VBG pCO2 48.9 VBG HCO3 28.8 VBG Base Excess 3.0 Sodium 139.9 Potassium 3.7 Chloride 100 Carbon Dioxide 27 Anion Gap 13 BUN 15 Creatinine 0.77 Est GFR ( Amer) > 60 Est GFR (Non-Af Amer) > 60 Glucose 189 H Calcium 9.2 Urine Color Urine Appearance Urine pH Ur Specific [place] Urine Protein Urine Glucose (UA) Urine Ketones Urine Blood Urine Nitrite Ur Leukocyte Esterase Urine WBC (Auto) Urine RBC (Auto) 11/17/16 05:42 WBC RBC Hgb Hct MCV MCH MCHC RDW Plt Count Seg Neutrophils % Lymphocytes % Monocytes % Eosinophils % Basophils % Absolute Neutrophils Absolute Lymphocytes Absolute Monocytes Absolute Eosinophils Absolute Basophils VBG pH VBG pCO2 VBG HCO3 VBG Base Excess Sodium Potassium Chloride Carbon Dioxide Anion Gap BUN Creatinine Est GFR ( Amer) Est GFR (Non-Af Amer) Glucose Calcium Urine Color YELLOW Urine Appearance SLIGHTLY-CLOUDY Urine pH 5.0 Ur Specific [place] 1.012 Urine Protein NEGATIVE Urine Glucose (UA) NEGATIVE Urine Ketones NEGATIVE Urine Blood NEGATIVE Urine Nitrite NEGATIVE Ur Leukocyte Esterase MODERATE H Urine WBC (Auto) 13 Urine RBC (Auto) 2 Impressions: Chest X-Ray 11/16/16 21:30 IMPRESSION: COPD. NO ACUTE RADIOGRAPHIC FINDING IN THE CHEST OR SIGNIFICANT CHANGE FROM PRIOR STUDY. Assessment & Plan - Diagnosis (1) Acute and chronic respiratory failure with hypoxia Is this a current diagnosis for this admission?: Yes (2) Acute and chronic respiratory failure with hypercapnia Is this a current diagnosis for this admission?: Yes (3) COPD exacerbation Is this a current diagnosis for this admission?: Yes (4) Type 1 diabetes mellitus Qualifiers: Diabetes mellitus complication status: with unspecified complications Qualified Code(s): E10.8 - Type 1 diabetes mellitus with unspecified complications Is this a current diagnosis for this admission?: Yes (5) Obstructive sleep apnea Is this a current diagnosis for this admission?: Yes (6) Tobacco dependency Is this a current diagnosis for this admission?: Yes - Time Time Spent with patient: 25-34 minutes Medications reviewed and adjusted accordingly: Yes - Plan Summary Plan Summary: Continue broad-spectrum antibiotics, scheduled and as needed nebulizer therapy, systemic steroids, supplemental O2, and wean BiPAP as tolerated. Continue home medicines for chronic medical conditions GI prophylaxis with PPI therapy and heparin for DVT prophylaxis
[2016-11-17] MEDS: PREGABALIN 50 MG CAPSULE PO SCH ×2 (13:48→22:12)
[2016-11-17] MEDS: OXYCODONE HCL IR 5 MG TABLET PO PRN ×2 (14:00→22:10)
[2016-11-17] MEDS ORDERED: LIDOCAINE 5% (700 MG) TRANSDERMAL ADH..PATCH TP ONE (14:00)
[2016-11-17] MEDS ORDERED: THEOPHYLLINE ANHYDROUS 300 MG TAB.SR.12H PO ONE (14:00)
[2016-11-17] MEDS ORDERED: LIDOCAINE 5% (700 MG) TRANSDERMAL ADH..PATCH TP SCH (22:00)
[2016-11-17] MEDS: ATORVASTATIN CALCIUM 40 MG TABLET PO SCH (22:11)
[2016-11-17] MEDS: INSULIN GLARGINE,HUM.REC.ANLOG 300 UNIT/3 ML INSULN.PEN SUBCUT SCH (22:11)
[2016-11-17] MEDS: ROPINIROLE HCL 2 MG TABLET PO SCH (22:12)
[2016-11-17] MEDS: RANOLAZINE 500 MG TAB.SR.12H PO SCH (22:12)
[2016-11-17] MEDS: AZITHROMYCIN 500 MG in DEXTROSE 5%-WATER 250 ML IV SCH (22:12)
[2016-11-17] MEDS: ALBUTEROL SULFATE 0.083% NEB 2.5 MG/3 ML AMPUL NEB PRN (23:59)
[2016-11-18] MEDS: ALBUTEROL SULFATE 0.083% NEB 2.5 MG/3 ML AMPUL NEB PRN (04:04)
[2016-11-18] MEDS: POTASSI CL 20 MEQ/NS 1L 1,000 ML IV PRN (04:10)
[2016-11-18] MEDS: PREGABALIN 50 MG CAPSULE PO SCH ×3 (06:15→22:28)
[2016-11-18] MEDS: METHYLPREDNISOLONE INJ 125 MG/2 ML SDV IV SCH ×3 (06:15→22:28)
[2016-11-18 06:16] LABS: HEMATOCRIT 33.1 % (36.0-47.0); HGB HCT DIFFERENCE -3.1; MEAN CORPUSCULAR HEMOGLOBIN 24.1 pg (27.0-33.4); MEAN CORPUSCULAR HGB CONC 30.4 g/dL (32.0-36.0); MEAN CORPUSCULAR VOLUME 80 fl (80-97); RED BLOOD COUNT 4.16 10^6/uL (3.72-5.28); RED CELL DISTRIBUTION WIDTH 17.7 % (11.5-14.0); WHITE BLOOD COUNT 18.3 10^3/uL (4.0-10.5)
[2016-11-18] MEDS: LANSOPRAZOLE 30 MG TAB.RAP.DR PO SCH ×2 (06:16→16:16)
[2016-11-18 06:37] LABS: BAND NEUTROPHILS % (MANUAL) 2 % (3-5); BASOPHILS % (MANUAL) 0 % (0-2); EOSINOPHILS % (MANUAL) 0 % (0-6); LYMPHOCYTES % (MANUAL) 2 % (13-45); TOTAL CELLS COUNTED 100
[2016-11-18 06:40] LABS: ANISOCYTOSIS 1+; HYPOCHROMASIA SLIGHT; MICROCYTOSIS SLIGHT; POLYCHROMASIA SLIGHT; TOXIC GRANULATION SLIGHT
[2016-11-18 06:41] LABS: ANION GAP 10 (5-19); BLOOD UREA NITROGEN 23 mg/dL (7-20); CARBON DIOXIDE 24 mmol/L (22-30); CHLORIDE 113 mmol/L (98-107); CREATININE RESULT 0.75 mg/dL (0.52-1.25); GLUCOSE 199 mg/dL (75-110); POTASSIUM 4.3 mmol/L (3.6-5.0); SODIUM 146.8 mmol/L (137-145)
[2016-11-18] MEDS ORDERED: (PENDING PHARMACY ID) (Cyanocobalamin (Vitamin B-12) [Vitamin B-12 500 Mcg Tablet] 500 MCG PO SCH (08:00)
[2016-11-18] MEDS: IPRATROPIUM/ALBUTEROL 0.5-2.5 MG/3 ML AMPUL NEB SCH ×3 (08:21→20:41)
[2016-11-18] MEDS ORDERED: THEOPHYLLINE ANHYDROUS 300 MG TAB.SR.12H PO SCH (10:00)
[2016-11-18] MEDS ORDERED: LIDOCAINE 5% (700 MG) TRANSDERMAL ADH..PATCH TP SCH (10:00)
[2016-11-18] MEDS: INSULIN LISPRO 100 UNIT/ML 3 ML VIAL SUBCUT PRN ×3 (11:10→17:43)
[2016-11-18] MEDS: ENOXAPARIN SODIUM INJ 40 MG/0.4 ML DISP.SYRIN SUBCUT SCH (11:11)
[2016-11-18] MEDS: NITROGLYCERIN 10 MG (0.4 MG/HR) PATCH.TD24 TD SCH (11:12)
[2016-11-18] MEDS: CYANOCOBALAMIN (VITAMIN B-12) 1,000 MCG TABLET PO SCH (11:13)
[2016-11-18] MEDS: RANOLAZINE 500 MG TAB.SR.12H PO SCH ×2 (11:13→22:27)
[2016-11-18] MEDS: ASPIRIN 81 MG TABLET, ENT COATED PO SCH (11:14)
[2016-11-18] MEDS: POTASSIUM CHLORIDE 10 MEQ TABLET.SA PO SCH (11:14)
[2016-11-18] MEDS: TORSEMIDE 20 MG TABLET PO SCH (11:14)
[2016-11-18] MEDS: LOSARTAN POTASSIUM 25 MG TABLET PO SCH (11:15)
[2016-11-18] MEDS: CEFEPIME HCL 2 GM in DEXTROSE 5%-WATER 50 ML IV SCH ×2 (11:17→22:28)
[2016-11-18] MEDS ORDERED: HYDROCODONE BIT/HOMATROPINE 5-1.5 MG TABLET PO PRN (12:11)
--- NOTE | 2016-11-18 12:16 | PDOC PROGRESS REPORT ---
Subjective Progress Note for:: 11/18/16 Subjective:: Reason for visit: Follow-up COPD exacerbation, acute on chronic hypoxic respiratory failure Hospital course: Per H&P "DAGO GRAFF is a 71 year old female, long-term smoker, half a pack per day at present, with 3 L oxygen per nasal cannula during the day and 5 L at night. Home O2 dependent COPD, who presents to the emergency room for evaluation of a 2 to three-day history of slowly progressive difficulty breathing, in particular with much of any exertion. Mostly a dry cough. Fever to 101. Increased use of albuterol nebulizer at home , without relief. No chest or abdominal pain. No nausea vomiting, fever or chills. Has been intubated 3 times in the past for respiratory difficulty. Hospitalized on our service August 05 through the of last year while diagnoses including aspiration pneumonia with respiratory failure and hypoglycemia. Discharge summary has been reviewed. Was admitted to our service May 22 of last year for cough and shortness of breath. History and physical has been reviewed." Patient remains on BiPAP failing brief attempts to come off with increased shortness of breath and chest tightness. Review of the old record in July 2016 she underwent echocardiogram that showed 2/4 diastolic dysfunction, mild aortic stenosis, mild aortic regurgitation and mitral regurgitation, mild pulmonary hypertension. In September of this year she had a hemoglobin A1c of 6.0 Her cardiac enzymes, in particular her troponin, are chronically mildly elevated at the level they are now. Subjective: Continues to complain of chest tightness, wheezing, breathlessness with minimal exertion, fatigue, headache, general malaise and aches and pains - no real improvement from before. ROS: per HPI plus a total of 10 systems reviewed, pertinent positives and negatives noted above, remaining systems negative. Physical Exam Vital Signs: Temp Pulse Resp BP Pulse Ox 97.4 F 105 H 22 H 133/50 H 93 11/18/16 08:16 11/18/16 08:21 11/18/16 08:21 11/18/16 08:16 11/18/16 08:21 Intake & Output 11/17/16 11/18/16 11/19/16 06:59 06:59 06:59 Intake Total 2250 Balance 2250 Weight 73.5 kg 76.7 kg EXAM GENERAL: NAD; well developed, well nourished; mild obese; alert and oriented to person, place, time, situation HEENT: normocephalic, atraumatic; no conjunctival injection, no scleral icterus ; oral mucosa moist; BiPAP mask in place RESPIRATORY: Abdominal accessory muscle use, mild increased WOB, poor air entry bilaterally; diffuse rhonchi; diffuse inspiratory crackles- no change from before CARDIO: no JVD; RRR; no systolic murmur; tachycardia GI: soft; nondistended; normal bowel sounds; no rebound, rigidity, guarding VASCULAR: no pallor; 2+ radial, DP pulse; normal capillary refill EXTREMITIES: no calf tender; no palpable cords in calf; no clubbing, cyanosis , trace pedal edema PSYCH: normal affect, normal mood SKIN: warm; dry; no petechiae; no telengectasias; no jaundice; no rash Results Laboratory Results: 11/18/16 05:50 11/18/16 05:50 11/18/16 11/18/16 05:50 05:50 WBC 18.3 H RBC 4.16 Hgb 10.0 L Hct 33.1 L MCV 80 MCH 24.1 L MCHC 30.4 L RDW 17.7 H Plt Count 248 Seg Neutrophils % Not Reportable Lymphocytes % Not Reportable Monocytes % Not Reportable Eosinophils % Not Reportable Basophils % Not Reportable Absolute Neutrophils Not Reportable Absolute Lymphocytes Not Reportable Absolute Monocytes Not Reportable Absolute Eosinophils Not Reportable Absolute Basophils Not Reportable Sodium 146.8 H Potassium 4.3 Chloride 113 H Carbon Dioxide 24 Anion Gap 10 BUN 23 H Creatinine 0.75 Est GFR ( Amer) > 60 Est GFR (Non-Af Amer) > 60 Glucose 199 H Calcium 9.0 Assessment & Plan - Diagnosis (1) Acute and chronic respiratory failure with hypoxia Is this a current diagnosis for this admission?: Yes (2) Acute and chronic respiratory failure with hypercapnia Is this a current diagnosis for this admission?: Yes (3) COPD exacerbation Is this a current diagnosis for this admission?: Yes (4) Type 1 diabetes mellitus Qualifiers: Diabetes mellitus complication status: with unspecified complications Qualified Code(s): E10.8 - Type 1 diabetes mellitus with unspecified complications Is this a current diagnosis for this admission?: Yes (5) Obstructive sleep apnea Is this a current diagnosis for this admission?: Yes (6) Tobacco dependency Is this a current diagnosis for this admission?: Yes - Time Time Spent with patient: 25-34 minutes - Plan Summary Plan Summary: Very slow to improve, continue current treatment. BiPAP until respiratory distress improves. Nursing, and over well, state that it usually takes several days for her to turn around from a COPD exacerbation. Her reports they both "got the flu at the same time" but she is much sicker than he. She screened negative for the flu on this admission, but may have picked up another respiratory virus to account for her slow improvement. The severe nature of her fixed lung disease, of course puts her at risk for gram-negative organisms including Pseudomonas.
[2016-11-18] MEDS: OXYCODONE HCL IR 5 MG TABLET PO PRN (22:27)
[2016-11-18] MEDS: ATORVASTATIN CALCIUM 40 MG TABLET PO SCH (22:27)
[2016-11-18] MEDS: INSULIN GLARGINE,HUM.REC.ANLOG 300 UNIT/3 ML INSULN.PEN SUBCUT SCH (22:28)
[2016-11-18] MEDS: ROPINIROLE HCL 2 MG TABLET PO SCH (22:29)
[2016-11-18] MEDS: AZITHROMYCIN 500 MG in DEXTROSE 5%-WATER 250 ML IV SCH (22:30)
[2016-11-19] MEDS: ALBUTEROL SULFATE 0.083% NEB 2.5 MG/3 ML AMPUL NEB PRN ×2 (00:09→04:51)
[2016-11-19] MEDS: METHYLPREDNISOLONE INJ 125 MG/2 ML SDV IV SCH ×3 (06:04→22:04)
[2016-11-19] MEDS: PREGABALIN 50 MG CAPSULE PO SCH ×3 (06:04→22:03)
[2016-11-19] MEDS: LANSOPRAZOLE 30 MG TAB.RAP.DR PO SCH ×2 (06:04→17:36)
[2016-11-19 06:19] LABS: HEMATOCRIT 33.9 % (36.0-47.0); HEMOGLOBIN 10.7 g/dL (12.0-15.5); HGB HCT DIFFERENCE -1.8; MEAN CORPUSCULAR HGB CONC 31.4 g/dL (32.0-36.0); MEAN CORPUSCULAR VOLUME 80 fl (80-97); RED BLOOD COUNT 4.27 10^6/uL (3.72-5.28); RED CELL DISTRIBUTION WIDTH 17.8 % (11.5-14.0)
[2016-11-19 07:33] LABS: BASOPHILS % (MANUAL) 0 % (0-2); EOSINOPHILS % (MANUAL) 0 % (0-6); LYMPHOCYTES % (MANUAL) 5 % (13-45); TOTAL CELLS COUNTED 100
[2016-11-19 07:34] LABS: ANISOCYTOSIS 1+; HYPOCHROMASIA SLIGHT; MICROCYTOSIS SLIGHT; OVALOCYTES 1+; POIKILOCYTOSIS 1+; POLYCHROMASIA SLIGHT; TOXIC GRANULATION SLIGHT; TOXIC VACUOLATION PRESENT
[2016-11-19] MEDS: IPRATROPIUM/ALBUTEROL 0.5-2.5 MG/3 ML AMPUL NEB SCH ×3 (08:29→20:10)
[2016-11-19] MEDS: ENOXAPARIN SODIUM INJ 40 MG/0.4 ML DISP.SYRIN SUBCUT SCH (08:51)
[2016-11-19] MEDS: CYANOCOBALAMIN (VITAMIN B-12) 1,000 MCG TABLET PO SCH (08:51)
[2016-11-19] MEDS: INSULIN LISPRO 100 UNIT/ML 3 ML VIAL SUBCUT PRN ×2 (08:51→22:04)
[2016-11-19] MEDS: LOSARTAN POTASSIUM 25 MG TABLET PO SCH (10:32)
[2016-11-19] MEDS: RANOLAZINE 500 MG TAB.SR.12H PO SCH ×2 (10:32→22:03)
[2016-11-19] MEDS: ASPIRIN 81 MG TABLET, ENT COATED PO SCH (10:33)
[2016-11-19] MEDS: TORSEMIDE 20 MG TABLET PO SCH (10:33)
[2016-11-19] MEDS: NITROGLYCERIN 10 MG (0.4 MG/HR) PATCH.TD24 TD SCH (10:33)
[2016-11-19] MEDS: POTASSIUM CHLORIDE 10 MEQ TABLET.SA PO SCH (10:33)
[2016-11-19] MEDS: CEFEPIME HCL 2 GM in DEXTROSE 5%-WATER 50 ML IV SCH ×2 (10:34→22:03)
[2016-11-19 12:10] LABS: ARTERIAL BLOOD BASE EXCESS -0.4 mmol/L; ARTERIAL BLOOD O2 SATURATION 87.5 % (94-98)
--- NOTE | 2016-11-19 14:09 | PDOC CONSULTATION ---
Consultation Consult Date: 11/19/16 Attending physician:: VADIM CARDONA Consult reason:: chronic resp failure History of Present Illness Admission Date/PCP: 11/17/16 02:51 History of Present Illness: DAGO GRAFF is a 71 year old female, long-term smoker, half a pack per day at present, with 3 L oxygen per nasal cannula 24/7 Home O2 dependent COPD, who presents to the emergency room for evaluation of a 2 to three-day history of slowly progressive difficulty breathing, in particular with much of any exertion. Mostly a dry cough. Fever to 101. Increased use of albuterol nebulizer at home, without relief.She Has been intubated 3 times in the past for respiratory difficulty. Hospitalized August 05 through the of last year while diagnoses including aspiration pneumonia with respiratory failure and hypoglycemia. She states that the last 3 weeks is gotten progressively more short of breath admits to chronic dyspnea on exertion as well as shortness of breath and is wearing 3 L of O2 at home she denies a pop hemoptysis and a PPD was negative dates unknown. She has no history of chronic lung disease as a child or as an adolescent. She admits to exposure to passive smoke as a child. She is smell for smoke a pack and half a day for approximately 52 years and is currently smoking half pack a day despite being on home O2. She has worked in housekeeping and cleaning and has been exposed to chemicals from time to time. She has 2 dogs no recent travel. She denies angina-like chest pain sleeps on 2 pillows occasional PND occasional nocturnal cough and occasional edema. Per the patient she has a history of obstructive sleep apnea and has CPAP at home which she uses frequently. Past Medical History Cardiac Medical History: Reports: Congestive Heart Failure - Lasix , Coronary Artery Disease - CABG, Hyperlipidema - zocor , Hypertension Denies: Atrial Fibrillation, DVT, Myocardial Infarction, Peripheral Vascular Disease, Pulmonary Embolism, Heart Murmur Pulmonary Medical History: Reports: Asthma, Chronic Obstructive Pulmonary Disease (COPD), Pneumonia - MRSA 2014 , Sleep Apnea - bipap , Tuberculosis - + PPD in s - on meds x 1 year Denies: Bronchitis, Respiratory Failure Neurological Medical History: Denies: Seizures Endocrine Medical History: Reports: Diabetes Mellitus Type 1, Diabetes Mellitus Type 2 Denies: Hyperthyroidism, Hypothyroidism Renal/ Medical History: Denies: End Stage Renal Disease Malignancy Medical History: Denies: Breast Cancer, Cervical Cancer, Leukemia, Lung Cancer, Ovarian Cancer GI Medical History: Reports: Gastroesophageal Reflux Disease Denies: Cirrhosis, Crohn's Disease, Hepatitis, Hiatal Hernia Musculoskeltal Medical History: Reports: Arthritis Denies: Fibromyalgia Skin Medical History: Denies: Eczema, Psoriasis Psychiatric Medical History: Reports: Depression Denies: Bipolar Disorder, Post Traumatic Stress Disorder Hematology: Reports: Anemia - occ Denies: Hemophilia, Sickle Cell Disease Infectious Medical History: Reports: 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 MRSA pneumonia, 2015 Denies: Clostridium Difficile, HIV Past Surgical History Past Surgical History: Reports: Appendectomy, Cholecystectomy, Coronary Artery Bypass Graft - 2009 x 2 grafts , Hysterectomy, Orthopedic Surgery - Left footsurgery, cyst removal from left hand, Tonsillectomy Denies: Amputation, Section, Colostomy, Gastric Bypass Surgery, Herniorrhaphy, Mastectomy, Pacemaker, Tubal Ligation Social History Information Source: Patient, [facility] Records Lives with: Spouse/Significant other Smoking Status: Current Some Day Smoker Cigarettes Packs Per Day: 1 Passive smoke exposure as: Both Frequency of Alcohol Use: None Hx Recreational Drug Use: No Drugs: None Hx Prescription Drug Abuse: No Do you have pets?: Yes Have you had any respiratory illnesses as a child?: No Have you been exposed to any sick contacts recently?: No Have you travelled outside of [place] in the past 12 months?: No - Advance Directive Resuscitation Status: Full Code Family History Family History: DM, Hypertension Parental Family History Reviewed: No - Unaware history from family parents or siblings Children Family History Reviewed: Yes - Alive and well Sibling(s) Family History Reviewed.: Unknown Medication/Allergy Home Medications: Aspirin [Aspirin EC] 81 mg PO DAILY 11/17/16 Atorvastatin Calcium [Lipitor 40 mg Tablet] 40 mg PO QHS 11/17/16 Cyanocobalamin (Vitamin B-12) [Vitamin B-12 500 mcg Tablet] 500 mcg PO QAM 11/17 Insulin Aspart [Novolog Flexpen] 0 unit SUBCUT .PERSLDINGSCALE 11/17/16 Insulin Glargine,Hum.rec.anlog [Lantus Solostar] 15 unit SQ QHS 11/17/16 Iron Polysaccharide Complex [Ferrex 150] 150 mg PO DAILY 11/17/16 Lidocaine [Lidoderm] 1 each TP Q12 11/17/16 Losartan Potassium [Cozaar 25 mg Tablet] 25 mg PO DAILY 11/17/16 Metoprolol Succinate [Toprol Xl 25 mg Tab.sr] 25 mg PO Q12 11/17/16 Nitroglycerin [Nitro-Dur 10 mg (0.4MG/Hr) Transdermal Patch] 1 each TD DAILY Olopatadine HCl [Pataday] 2.5 ml OU ASDIR PRN 11/17/16 Omeprazole 20 mg PO DAILY 11/17/16 Oxycodone HCl/Acetaminophen [Percocet 10-325 Mg Tablet] 1 tab PO Q6HP PRN Potassium Chloride [Klor-Con 10 Meq Tablet.sa] 10 meq PO DAILY 11/17/16 Prednisone [Deltasone 5 mg Tablet] 5 mg PO Q2D 11/17/16 Prednisone [Deltasone 5 mg Tablet] 5 mg PO Q3D 11/17/16 Pregabalin [Lyrica 50 Mg Capsule] 50 mg PO Q8 11/17/16 Ranolazine [Ranexa 500 mg Tab.sr] 500 mg PO Q12 11/17/16 Roflumilast [Daliresp 500 mcg Tablet] 500 mcg PO DAILY 11/17/16 Ropinirole HCl [Requip 2 Mg Tablet] 2 mg PO QHS 11/17/16 Theophylline Anhydrous 300 mg PO DAILY 11/17/16 Torsemide [Demadex 20 mg Tablet] 20 mg PO DAILY 11/17/16 Allergies/Adverse Reactions: vancomycin Allergy (Verified 07/29/16 11:57) Generalized Itching levofloxacin Adverse Reaction (Verified 07/29/16 14:06) Diarrhea linezolid [From Zyvox] Adverse Reaction (Verified 07/29/16 14:06) Diarrhea Physical Exam Vital Signs: Temp Pulse Resp BP Pulse Ox 97.9 F 100 22 H 127/47 H 94 11/19/16 08:07 11/19/16 08:29 11/19/16 08:29 11/19/16 08:07 11/19/16 08:29 Intake & Output 11/18/16 11/19/16 11/20/16 06:59 06:59 06:59 Intake Total 2250 2900 Output Total 1900 Balance 2250 1000 Weight 76.7 kg General appearance: PRESENT: cooperative, disheveled, obese Head exam: PRESENT: atraumatic, normocephalic Eye exam: PRESENT: conjunctiva pale, EOMI Mouth exam: PRESENT: dry mucosa, neck supple Neck exam: ABSENT: carotid bruit, JVD, lymphadenopathy, thyromegaly Cardiovascular exam: PRESENT: RRR, +S1, +S2 Pulses: PRESENT: normal radial pulses GI/Abdominal exam: PRESENT: normal bowel sounds, soft. ABSENT: distended, guarding, mass, organolmegaly, rebound, tenderness Rectal exam: PRESENT: deferred Gentrourinary exam: PRESENT: indwelling catheter Musculoskeletal exam: PRESENT: normal inspection Neurological exam: PRESENT: alert, awake Psychiatric exam: PRESENT: normal mood Skin exam: PRESENT: dry, warm Results Laboratory Results: 11/19/16 06:05 11/18/16 05:50 11/19/16 06:05 WBC 19.0 H RBC 4.27 Hgb 10.7 L Hct 33.9 L MCV 80 MCH 25.0 L MCHC 31.4 L RDW 17.8 H Plt Count 263 Seg Neutrophils % Not Reportable Lymphocytes % Not Reportable Monocytes % Not Reportable Eosinophils % Not Reportable Basophils % Not Reportable Absolute Neutrophils Not Reportable Absolute Lymphocytes Not Reportable Absolute Monocytes Not Reportable Absolute Eosinophils Not Reportable Absolute Basophils Not Reportable 11/17/16 09:05 Nasophary (Mrsa Only) MRSA Surveillance Culture - Final MRSA RECOVERED Impressions: Chest X-Ray 11/16/16 21:30 IMPRESSION: COPD. NO ACUTE RADIOGRAPHIC FINDING IN THE CHEST OR SIGNIFICANT CHANGE FROM PRIOR STUDY. Assessment & Plan - Diagnosis (1) Acute and chronic respiratory failure with hypercapnia Is this a current diagnosis for this admission?: YesPlan: Continue noninvasive positive pressure ventilation as needed patient states she would like to be intubated so she can get a rest of his she clinically does not appear to be in significant distress history of CO2 retention that dates back to 2011 (2) Acute and chronic respiratory failure with hypoxia Is this a current diagnosis for this admission?: YesPlan: Patient states that she chokes 2-3 times per week on her food she is noted to have aspiration pneumonia in the past we will check a modified barium swallow prior testing was not noted in review of chart (3) Obstructive sleep apnea Is this a current diagnosis for this admission?: YesPlan: Continues to use BiPAP (4) Restless leg syndrome Is this a current diagnosis for this admission?: Yes (5) Tobacco dependency Is this a current diagnosis for this admission?: YesPlan: Transdermal nicotine
--- NOTE | 2016-11-19 14:33 | ST Inp Modified Barium Swallow ---
Medical Diagnosis - Medical Diagnoses Medical Diagnosis Description & ICD-10 Code(s): COPD ST Inpatient [facility] [place] - General Date: 11/19/16 Date of Onset: 09/26/16 - patient unable to give specific date of onset - History History Obtained From: Patient Medications: Medications Reviewed Allergies: Refer to medical record - no food allergies reported by patient - Subjective Current Nutritional Means: PO Current PO Diet: Regular Current Symptoms: c/o Globus sensation - states that she feels food "gets stuck in the throat" at times, and that she has to "throw up to get rid of it". Specifically complains of solids such as rice and chicken, no reported difficulty with liquids. States this may happen 1x per week. Pain: Patient reports, 0/5 - Objective Assessment: Upright, Left Lateral - Food Trials Food Trials Used: Thin liquids, Pureed, Regular The Patient: Was Able to Self Feed - Assessment Labial Function: Within Normal Limits Lingual Function: Within Normal Limits Mandibular Function: Within Normal Limits Dentition: Full Laryngeal Function: Throat Clear, Volitional Swallow, clear voicing - Pharyngeal Stage Initiation of Pharyngeal Stage: Normal Decreased Laryngeal Elevation: No Reduced Velo-Pharyngeal Closure: no Reduced Pressure Generation: No Reduced Tongue Base Retraction: Yes - mild Pre-Swallowing Pooling in Valleculae: None Pre-Swallowing Pooling in Pyriforms: None Reduced Thyro-Hyiod Approximation: No Reduced Epiglottic Excursion: No Reduced Pharyngeal Peristalsis: No Post Swallow Residuals in Valleculae: None Post Swallow Residuals in Pyriforms: None Post Swallow Residuals: tongue-base - mild to moderate residuals seen on posterior tongue-base with clara cracker trials, however, patient spontaneously completed multiple swallows which resolved residue. - Impression/Summary Laryngeal Penetration: No Tracheal Aspiration: no Effective Clearing: yes - residue cleared with multiple swallows Compensatory Strategies: spontaneous multiple swallows Patient Presents With: Normal swallow at eval Risk of Aspiration: Minimal Risk of Nutritional Compromise: WNL - Recommendations Solid Diet Recommendations: Regular Liquid Diet Recommendations: Thin Regular Diet: Yes Dysphagia Therapy with COFFEE SHOP AIDE: No Recommended Techniques: Fully Upright During Meal, Alternate Bites/Sips - COFFEE SHOP AIDE recommends frequent sips of liquid to prevent possible build up of residue on posterior tongue/tongue base. Patient states that she already takes sips of liquid frequently during meals. - Time Total Time: 25 Total Timed Minutes: 25
--- NOTE | 2016-11-19 15:50 | PDOC PROGRESS REPORT ---
Subjective Progress Note for:: 11/19/16 Subjective:: Reason for visit: Follow-up COPD exacerbation, acute on chronic hypoxic respiratory failure Hospital course: Per H&P "DAGO GRAFF is a 71 year old female, long-term smoker, half a pack per day at present, with 3 L oxygen per nasal cannula during the day and 5 L at night. Home O2 dependent COPD, who presents to the emergency room for evaluation of a 2 to three-day history of slowly progressive difficulty breathing, in particular with much of any exertion. Mostly a dry cough. Fever to 101. Increased use of albuterol nebulizer at home , without relief. No chest or abdominal pain. No nausea vomiting, fever or chills. Has been intubated 3 times in the past for respiratory difficulty. Hospitalized on our service August 05 through the of last year while diagnoses including aspiration pneumonia with respiratory failure and hypoglycemia. Discharge summary has been reviewed. Was admitted to our service May 22 of last year for cough and shortness of breath. History and physical has been reviewed." Patient remains on BiPAP failing brief attempts to come off with increased shortness of breath and chest tightness. Review of the old record in July 2016 she underwent echocardiogram that showed 2/4 diastolic dysfunction, mild aortic stenosis, mild aortic regurgitation and mitral regurgitation, mild pulmonary hypertension. In September of this year she had a hemoglobin A1c of 6.0 Her cardiac enzymes, in particular her troponin, are chronically mildly elevated at the level they are now. Subjective: Continues to complain of chest tightness, wheezing, breathlessness with minimal exertion, fatigue, headache, general malaise and aches and pains - no real improvement from before and is asking for intubation and mechanical ventilation "so I can get some rest". ROS: per HPI plus a total of 10 systems reviewed, pertinent positives and negatives noted above, remaining systems negative. Physical Exam Vital Signs: Temp Pulse Resp BP Pulse Ox 97.5 F 101 H 24 H 147/66 H 94 11/19/16 13:01 11/19/16 13:54 11/19/16 13:54 11/19/16 13:01 11/19/16 13:54 Intake & Output 11/18/16 11/19/16 11/20/16 06:59 06:59 06:59 Intake Total 2250 2900 720 Output Total 1900 900 Balance 2250 1000 -180 Weight 76.7 kg Results Laboratory Results: 11/19/16 06:05 11/18/16 05:50 11/19/16 11/19/16 06:05 11:55 WBC 19.0 H RBC 4.27 Hgb 10.7 L Hct 33.9 L MCV 80 MCH 25.0 L MCHC 31.4 L RDW 17.8 H Plt Count 263 Seg Neutrophils % Not Reportable Lymphocytes % Not Reportable Monocytes % Not Reportable Eosinophils % Not Reportable Basophils % Not Reportable Absolute Neutrophils Not Reportable Absolute Lymphocytes Not Reportable Absolute Monocytes Not Reportable Absolute Eosinophils Not Reportable Absolute Basophils Not Reportable Carbonic Acid 1.49 H HCO3/H2CO3 Ratio 17:1 ABG pH 7.34 L ABG pCO2 49.5 H ABG pO2 56.7 L ABG HCO3 25.9 ABG O2 Saturation 87.5 L ABG Base Excess -0.4 FiO2 6L 11/17/16 09:05 Nasophary ([facility] Only) MRSA Surveillance Culture - Final MRSA RECOVERED Impressions: Chest X-Ray 11/16/16 21:30 IMPRESSION: COPD. NO ACUTE RADIOGRAPHIC FINDING IN THE CHEST OR SIGNIFICANT CHANGE FROM PRIOR STUDY. Status: Imported from PACS Assessment & Plan - Diagnosis (1) Acute and chronic respiratory failure with hypoxia Is this a current diagnosis for this admission?: YesPlan: Unchanged and nowhere near her baseline (2) Acute and chronic respiratory failure with hypercapnia Is this a current diagnosis for this admission?: Yes (3) COPD exacerbation Is this a current diagnosis for this admission?: Yes (4) Type 1 diabetes mellitus Qualifiers: Diabetes mellitus complication status: with unspecified complications Qualified Code(s): E10.8 - Type 1 diabetes mellitus with unspecified complications Is this a current diagnosis for this admission?: Yes (5) Obstructive sleep apnea Is this a current diagnosis for this admission?: Yes (6) Tobacco dependency Is this a current diagnosis for this admission?: Yes - Time Time Spent with patient: 25-34 minutes - Plan Summary Plan Summary: I spoke with Dr. Aguilar who will see the patient in consultation as she is not really progressing since admission.
[2016-11-19] MEDS: BUDESONIDE NEB 0.5 MG/2 ML AMPUL NEB SCH (20:09)
[2016-11-19] MEDS: AZITHROMYCIN 250 MG TABLET PO SCH (22:02)
[2016-11-19] MEDS: ATORVASTATIN CALCIUM 40 MG TABLET PO SCH (22:03)
[2016-11-19] MEDS: ROPINIROLE HCL 2 MG TABLET PO SCH (22:03)
[2016-11-19] MEDS: OXYCODONE HCL IR 5 MG TABLET PO PRN (22:03)
[2016-11-19] MEDS: INSULIN GLARGINE,HUM.REC.ANLOG 300 UNIT/3 ML INSULN.PEN SUBCUT SCH (22:04)
[2016-11-19] MEDS: PHARMACY COMMUNICATION ORDER MC SCH (22:05)
[2016-11-20] MEDS: PREGABALIN 50 MG CAPSULE PO SCH ×3 (06:07→22:01)
[2016-11-20] MEDS: METHYLPREDNISOLONE INJ 125 MG/2 ML SDV IV SCH (06:07)
[2016-11-20] MEDS: LANSOPRAZOLE 30 MG TAB.RAP.DR PO SCH ×2 (06:07→16:36)
[2016-11-20 06:28] LABS: ABSOLUTE LYMPHOCYTES (AUTO) 0.8 10^3/uL (0.5-4.7); ABSOLUTE MONOCYTES (AUTO) 0.4 10^3/uL (0.1-1.4); ABSOLUTE NEUT (AUTO) 10.8 10^3/uL (1.7-8.2); BASOPHILS % (AUTO) 0.1 % (0-2); HEMATOCRIT 34.5 % (36.0-47.0); HEMOGLOBIN 10.8 g/dL (12.0-15.5); HGB HCT DIFFERENCE -2.1; LYMPHOCYTES % (AUTO) 6.5 % (13-45); MEAN CORPUSCULAR HEMOGLOBIN 24.7 pg (27.0-33.4); MEAN CORPUSCULAR HGB CONC 31.4 g/dL (32.0-36.0); MEAN CORPUSCULAR VOLUME 79 fl (80-97); RED BLOOD COUNT 4.39 10^6/uL (3.72-5.28); RED CELL DISTRIBUTION WIDTH 17.3 % (11.5-14.0); SEGMENTED NEUTROPHILS % (AUTO) 90.4 % (42-78)
[2016-11-20 06:53] LABS: ANION GAP 13 (5-19); BLOOD UREA NITROGEN 41 mg/dL (7-20); CALCIUM 9.2 mg/dL (8.4-10.2); CARBON DIOXIDE 28 mmol/L (22-30); CHLORIDE 106 mmol/L (98-107); CREATININE RESULT 0.88 mg/dL (0.52-1.25); GLUCOSE 163 mg/dL (75-110); POTASSIUM 4.4 mmol/L (3.6-5.0)
[2016-11-20] MEDS: BUDESONIDE NEB 0.5 MG/2 ML AMPUL NEB SCH ×2 (07:45→20:06)
[2016-11-20] MEDS: IPRATROPIUM/ALBUTEROL 0.5-2.5 MG/3 ML AMPUL NEB SCH ×3 (07:45→20:06)
[2016-11-20] MEDS: ENOXAPARIN SODIUM INJ 40 MG/0.4 ML DISP.SYRIN SUBCUT SCH (08:10)
[2016-11-20] MEDS: CYANOCOBALAMIN (VITAMIN B-12) 1,000 MCG TABLET PO SCH (08:11)
[2016-11-20] MEDS: INSULIN LISPRO 100 UNIT/ML 3 ML VIAL SUBCUT PRN ×3 (08:14→22:00)
[2016-11-20] MEDS: NITROGLYCERIN 10 MG (0.4 MG/HR) PATCH.TD24 TD SCH (10:08)
[2016-11-20] MEDS: ASPIRIN 81 MG TABLET, ENT COATED PO SCH (10:08)
[2016-11-20] MEDS: LIDOCAINE 5% (700 MG) TRANSDERMAL ADH..PATCH TP SCH (10:08)
[2016-11-20] MEDS: RANOLAZINE 500 MG TAB.SR.12H PO SCH ×2 (10:09→22:00)
[2016-11-20] MEDS: CEFEPIME HCL 2 GM in DEXTROSE 5%-WATER 50 ML IV SCH ×2 (10:09→22:01)
[2016-11-20] MEDS: LOSARTAN POTASSIUM 25 MG TABLET PO SCH (10:09)
[2016-11-20] MEDS: TORSEMIDE 20 MG TABLET PO SCH (10:09)
[2016-11-20] MEDS: POTASSIUM CHLORIDE 10 MEQ TABLET.SA PO SCH (10:09)
--- NOTE | 2016-11-20 11:18 | PDOC PROGRESS REPORT ---
Subjective Progress Note for:: 11/20/16 Subjective:: Patient is feeling a little better She is still on BiPAP most of the day except for meals She states that when she goes home she will continue to smoke and we had a long conversation about tobacco cessation no fever no chills Physical Exam Vital Signs: Temp Pulse Resp BP Pulse Ox 98.2 F 103 H 16 138/61 H 94 11/20/16 07:51 11/20/16 07:51 11/20/16 07:51 11/20/16 07:51 11/20/16 07:51 Intake & Output 11/19/16 11/20/16 11/21/16 00:59 00:59 00:59 Intake Total 3740 3192 310 Output Total 900 3400 800 Balance 6355 -208 -717 Weight 76.7 kg General appearance: PRESENT: mild distress, other - On BiPAP support when evaluated Head exam: PRESENT: atraumatic, normocephalic Eye exam: PRESENT: conjunctiva pink, EOMI, PERRLA. ABSENT: scleral icterus Neck exam: ABSENT: carotid bruit, JVD, lymphadenopathy, thyromegaly Respiratory exam: PRESENT: decreased breath sounds, wheezes. ABSENT: accessory muscle use Cardiovascular exam: PRESENT: RRR. ABSENT: diastolic murmur, rubs, systolic murmur Pulses: PRESENT: normal dorsalis pedis pul Extremities exam: PRESENT: full ROM. ABSENT: calf tenderness, clubbing, pedal edema Neurological exam: PRESENT: alert, awake, oriented to person, oriented to place , oriented to time, oriented to situation, CN II-XII grossly intact. ABSENT: motor sensory deficit Results Laboratory Results: 11/20/16 05:43 11/20/16 05:43 11/19/16 11/20/16 11/20/16 11:55 05:43 05:43 WBC 12.0 H RBC 4.39 Hgb 10.8 L Hct 34.5 L MCV 79 L MCH 24.7 L MCHC 31.4 L RDW 17.3 H Plt Count 247 Seg Neutrophils % 90.4 H Lymphocytes % 6.5 L Monocytes % 3.0 Eosinophils % 0.0 Basophils % 0.1 Absolute Neutrophils 10.8 H Absolute Lymphocytes 0.8 Absolute Monocytes 0.4 Absolute Eosinophils 0.0 Absolute Basophils 0.0 Carbonic Acid 1.49 H HCO3/H2CO3 Ratio 17:1 ABG pH 7.34 L ABG pCO2 49.5 H ABG pO2 56.7 L ABG HCO3 25.9 ABG O2 Saturation 87.5 L ABG Base Excess -0.4 FiO2 6L Sodium 147.0 H Potassium 4.4 Chloride 106 Carbon Dioxide 28 Anion Gap 13 BUN 41 H Creatinine 0.88 Est GFR ( Amer) > 60 Est GFR (Non-Af Amer) > 60 Glucose 163 H Calcium 9.2 11/17/16 09:05 Nasophary ([facility] Only) MRSA Surveillance Culture - Final MRSA RECOVERED Impressions: Chest X-Ray 11/16/16 21:30 IMPRESSION: COPD. NO ACUTE RADIOGRAPHIC FINDING IN THE CHEST OR SIGNIFICANT CHANGE FROM PRIOR STUDY. Assessment & Plan - Diagnosis (1) Acute and chronic respiratory failure with hypercapnia Is this a current diagnosis for this admission?: Yes (2) Acute and chronic respiratory failure with hypoxia Is this a current diagnosis for this admission?: Yes (3) COPD exacerbation Is this a current diagnosis for this admission?: Yes (4) Type 1 diabetes mellitus Qualifiers: Diabetes mellitus complication status: with unspecified complications Qualified Code(s): E10.8 - Type 1 diabetes mellitus with unspecified complications Is this a current diagnosis for this admission?: Yes - Time Time Spent with patient: We will continue present management Start tapering steroids Time Spent with patient: 25-34 minutes
[2016-11-20] MEDS ORDERED: METHYLPREDNISOLONE INJ 40 MG/1 ML SDV IV ONE (12:30)
--- NOTE | 2016-11-20 17:24 | PDOC PROGRESS REPORT ---
Subjective Progress Note for:: 11/20/16 Subjective:: Feel about the same Physical Exam Vital Signs: Temp Pulse Resp BP Pulse Ox 98.0 F 91 22 H 126/58 H 95 11/20/16 11:34 11/20/16 14:13 11/20/16 14:13 11/20/16 11:34 11/20/16 14:13 Intake & Output 11/19/16 11/20/16 11/21/16 06:59 06:59 06:59 Intake Total 2900 2492 480 Output Total 1900 3200 Balance 1000 -708 480 General appearance: PRESENT: no acute distress, disheveled, obese Head exam: PRESENT: atraumatic, normocephalic Eye exam: PRESENT: conjunctiva pale, EOMI Mouth exam: PRESENT: moist Neck exam: ABSENT: carotid bruit, JVD, lymphadenopathy, thyromegaly Respiratory exam: PRESENT: decreased breath sounds, prolonged expiratory phas, rhonchi, symmetrical, unlabored, wheezes Cardiovascular exam: PRESENT: irregular rhythm Pulses: PRESENT: normal radial pulses GI/Abdominal exam: PRESENT: normal bowel sounds, soft. ABSENT: distended, guarding, mass, organolmegaly, rebound, tenderness Rectal exam: PRESENT: deferred Gentrourinary exam: PRESENT: indwelling catheter Musculoskeletal exam: PRESENT: normal inspection Neurological exam: PRESENT: alert, awake Psychiatric exam: PRESENT: normal mood Skin exam: PRESENT: dry, warm Results Laboratory Results: 11/20/16 05:43 11/20/16 05:43 11/20/16 11/20/16 11/20/16 05:43 05:43 05:43 WBC 12.0 H RBC 4.39 Hgb 10.8 L Hct 34.5 L MCV 79 L MCH 24.7 L MCHC 31.4 L RDW 17.3 H Plt Count 247 Seg Neutrophils % 90.4 H Lymphocytes % 6.5 L Monocytes % 3.0 Eosinophils % 0.0 Basophils % 0.1 Absolute Neutrophils 10.8 H Absolute Lymphocytes 0.8 Absolute Monocytes 0.4 Absolute Eosinophils 0.0 Absolute Basophils 0.0 Sodium 147.0 H Potassium 4.4 Chloride 106 Carbon Dioxide 28 Anion Gap 13 BUN 41 H Creatinine 0.88 Est GFR ( Amer) > 60 Est GFR (Non-Af Amer) > 60 Glucose 163 H Calcium 9.2 Magnesium 2.2 11/19/16 20:30 Sputum Gram Stain - Final 11/19/16 20:30 Sputum Sputum Culture - Final Impressions: Chest X-Ray 11/16/16 21:30 IMPRESSION: COPD. NO ACUTE RADIOGRAPHIC FINDING IN THE CHEST OR SIGNIFICANT CHANGE FROM PRIOR STUDY. Assessment & Plan - Diagnosis (1) Acute and chronic respiratory failure with hypercapnia Is this a current diagnosis for this admission?: YesPlan: Continue noninvasive positive pressure ventilation as needed patient states she would like to be intubated so she can get a rest of his she clinically does not appear to be in significant distress history of CO2 retention that dates back to 2011 (2) Acute and chronic respiratory failure with hypoxia Is this a current diagnosis for this admission?: Yes (3) Obstructive sleep apnea Is this a current diagnosis for this admission?: Yes (4) Restless leg syndrome Is this a current diagnosis for this admission?: Yes (5) Tobacco dependency Is this a current diagnosis for this admission?: Yes
[2016-11-20] MEDS: METHYLPREDNISOLONE INJ 40 MG/1 ML SDV IV SCH (17:49)
[2016-11-20] MEDS: ROPINIROLE HCL 2 MG TABLET PO SCH (22:00)
[2016-11-20] MEDS: AZITHROMYCIN 250 MG TABLET PO SCH (22:00)
[2016-11-20] MEDS: ATORVASTATIN CALCIUM 40 MG TABLET PO SCH (22:00)
[2016-11-20] MEDS: INSULIN GLARGINE,HUM.REC.ANLOG 300 UNIT/3 ML INSULN.PEN SUBCUT SCH (22:00)
[2016-11-20] MEDS: METOPROLOL TARTRATE 25 MG TABLET PO SCH (22:00)
[2016-11-20] MEDS: PHARMACY COMMUNICATION ORDER MC SCH (22:02)
[2016-11-21] MEDS: METHYLPREDNISOLONE INJ 40 MG/1 ML SDV IV SCH ×3 (03:09→17:39)
[2016-11-21] MEDS: LANSOPRAZOLE 30 MG TAB.RAP.DR PO SCH ×2 (06:02→17:38)
[2016-11-21] MEDS: PREGABALIN 50 MG CAPSULE PO SCH ×3 (06:02→23:00)
[2016-11-21] MEDS: CYANOCOBALAMIN (VITAMIN B-12) 1,000 MCG TABLET PO SCH (07:58)
[2016-11-21] MEDS: ENOXAPARIN SODIUM INJ 40 MG/0.4 ML DISP.SYRIN SUBCUT SCH (07:59)
[2016-11-21] MEDS: IPRATROPIUM/ALBUTEROL 0.5-2.5 MG/3 ML AMPUL NEB SCH ×3 (08:06→20:57)
[2016-11-21] MEDS: BUDESONIDE NEB 0.5 MG/2 ML AMPUL NEB SCH ×2 (08:06→20:57)
[2016-11-21] MEDS: POTASSIUM CHLORIDE 10 MEQ TABLET.SA PO SCH (10:40)
[2016-11-21] MEDS: TORSEMIDE 20 MG TABLET PO SCH (10:40)
[2016-11-21] MEDS: RANOLAZINE 500 MG TAB.SR.12H PO SCH ×2 (10:40→22:59)
[2016-11-21] MEDS: LOSARTAN POTASSIUM 25 MG TABLET PO SCH (10:41)
[2016-11-21] MEDS: ASPIRIN 81 MG TABLET, ENT COATED PO SCH (10:41)
[2016-11-21] MEDS: METOPROLOL TARTRATE 25 MG TABLET PO SCH ×2 (10:41→23:00)
[2016-11-21] MEDS: NITROGLYCERIN 10 MG (0.4 MG/HR) PATCH.TD24 TD SCH (10:42)
[2016-11-21] MEDS: LIDOCAINE 5% (700 MG) TRANSDERMAL ADH..PATCH TP SCH (10:43)
[2016-11-21] MEDS: CEFEPIME HCL 2 GM in DEXTROSE 5%-WATER 50 ML IV SCH ×2 (10:43→23:01)
[2016-11-21 12:53] LABS: HEMATOCRIT 34.6 % (36.0-47.0); HEMOGLOBIN 10.9 g/dL (12.0-15.5); HGB HCT DIFFERENCE -1.9; MEAN CORPUSCULAR HEMOGLOBIN 24.7 pg (27.0-33.4); MEAN CORPUSCULAR HGB CONC 31.4 g/dL (32.0-36.0); MEAN CORPUSCULAR VOLUME 79 fl (80-97); RED CELL DISTRIBUTION WIDTH 17.6 % (11.5-14.0); WHITE BLOOD COUNT 10.7 10^3/uL (4.0-10.5)
[2016-11-21 13:12] LABS: ALANINE AMINOTRANSFERASE 21 U/L (9-52); ALBUMIN 2.9 g/dL (3.5-5.0); ALKALINE PHOSPHATASE 58 U/L (38-126); ANION GAP 10 (5-19); ASPARTATE AMINO TRANSFERASE 9 U/L (14-36); BILIRUBIN,DIRECT 0.3 mg/dL (0.0-0.4); BILIRUBIN,TOTAL 0.3 mg/dL (0.2-1.3); BLOOD UREA NITROGEN 44 mg/dL (7-20); CALCIUM 8.8 mg/dL (8.4-10.2); CARBON DIOXIDE 32 mmol/L (22-30); CHLORIDE 104 mmol/L (98-107); CREATININE RESULT 0.88 mg/dL (0.52-1.25); GLUCOSE 109 mg/dL (75-110); POTASSIUM 4.2 mmol/L (3.6-5.0); SODIUM 146.3 mmol/L (137-145); TOTAL PROTEIN 5.1 g/dL (6.3-8.2)
[2016-11-21 13:13] LABS: BASOPHILS % (MANUAL) 0 % (0-2); EOSINOPHILS % (MANUAL) 0 % (0-6); LYMPHOCYTES % (MANUAL) 10 % (13-45); TOTAL CELLS COUNTED 100
[2016-11-21 13:17] LABS: ANISOCYTOSIS 1+; HYPOCHROMASIA SLIGHT; MICROCYTOSIS SLIGHT
[2016-11-21] MEDS ORDERED: OLOPATADINE HCL 0.1% OPH SOLN 5 ML OU PRN (14:01)
[2016-11-21] MEDS: INSULIN LISPRO 100 UNIT/ML 3 ML VIAL SUBCUT PRN ×2 (17:54→22:59)
--- NOTE | 2016-11-21 19:30 | XCELERA REPORT ---
[address] [address] Transthoracic Echocardiogram Report Name: DAGO GRAFF Age: 71 yrs Gender: Female : 1945 Patient Status: Inpatient Patient Location: [id number]\322\[id number]\A Study Date: 11/21/2016 09:10 AM Height: 61 in Weight: 169 lb BSA: 1.8 m2 Procedure: A two-dimensional transthoracic echocardiogram with color flow and Doppler was performed. The study was technically difficult with many images being suboptimal in quality. Reason For Study: VENTRICULAR TACHYCARDIA History: VENTRICULAR TACHYCARDIA. Ordering Physician: DENEEN MCFADDEN Performed By: Charlotte Milligan Interpretation Summary The left ventricle is normal in size. There is normal left ventricular wall thickness. LV EF is 65% Left ventricular systolic function is normal. Doppler measurements suggest normal left ventricular diastolic function The left ventricular wall motion is normal. There is no thrombus. The right ventricle is not well visualized secondary to technical limitations The left atrium is mildly dilated. The interatrial septum is intact with no evidence for an atrial septal defect. There is no evidence of mitral valve prolapse. There is no vegetation seen on the mitral valve. There is no mitral valve stenosis. There is a mild amount of mitral regurgitation There is a peak gradient of 19 mm of Hg. There is no LVOT obstruction. No aortic regurgitation is present. There is no tricuspid stenosis. Probaly moderate TR. RVSP is 55 to 60 mm of Hg , with RA mean of 5 to10. There is no pericardial effusion. MMode/2D Measurements \T\ Calculations RVDd: 3.7 cm LVIDd: 4.7 cmFS: 31.2 % Ao root diam: 2.7 cm IVSd: 1.1 cm LVIDs: 3.2 cmEDV(Teich): 100.6 ml LVPWd: 1.1 cmESV(Teich): 41.2 ml Ao root area: 5.8 cm2 EF(Teich): 59.0 % LA dimension: 4.4 cm LVOT diam: 2.0 cm LVOT area: 3.0 cm2 Doppler Measurements \T\ Calculations MV E max mary kay: MV P1/2t max mary kay: Ao V2 max: LV V1 max P.4 cm/sec 166.6 cm/sec 218.2 cm/sec 7.6 mmHg MV A max mary kay: MV P1/2t: 47.9 msec Ao max PG: LV V1 max: 148.1 cm/sec MVA(P1/2t): 4.6 cm2 19.0 mmHg 137.6 cm/sec MV E/A: 1.1 MV dec slope: MARZENA(V,D): 1.9 cm2 1018 cm/sec2 PA V2 max: TR max mary kay: 125.2 cm/sec 350.2 cm/sec PA max P.3 mmHgTR max P.1 mmHg Left Ventricle The left ventricle is normal in size. There is normal left ventricular wall thickness. LV EF is 65%. Left ventricular systolic function is normal. Doppler measurements suggest normal left ventricular diastolic function. The left ventricular wall motion is normal. There is no thrombus. There is no ventricular septal defect visualized. Right Ventricle The right ventricle is not well visualized secondary to technical limitations. Atria The right atrium is normal. The left atrium is mildly dilated. The interatrial septum is intact with no evidence for an atrial septal defect. Mitral Valve There is mild mitral annular calcification. There is no evidence of mitral valve prolapse. There is no vegetation seen on the mitral valve. There is no mitral valve stenosis. There is a mild amount of mitral regurgitation. Aortic Valve The aortic valve is trileaflet. There is no aortic valvular vegetation. There is mild aortic stenosis. There is a peak gradient of 19 mm of Hg. There is no LVOT obstruction. No aortic regurgitation is present. Tricuspid Valve There is no tricuspid stenosis. Probaly moderate TR. RVSP is 55 to 60 mm of Hg , with RA mean of 5 to10. There is moderate to severe pulmonary hypertension by echo. Pulmonic Valve There is no pulmonic valvular stenosis. There is no pulmonic valvular regurgitation. Effusions There is no pericardial effusion. : DENEEN MCFADDEN > Barbie Parada
[2016-11-21] MEDS: AZITHROMYCIN 250 MG TABLET PO SCH (22:59)
[2016-11-21] MEDS: ATORVASTATIN CALCIUM 40 MG TABLET PO SCH (22:59)
[2016-11-21] MEDS: INSULIN GLARGINE,HUM.REC.ANLOG 300 UNIT/3 ML INSULN.PEN SUBCUT SCH (22:59)
[2016-11-21] MEDS: ROPINIROLE HCL 2 MG TABLET PO SCH (22:59)
[2016-11-21] MEDS: OXYCODONE HCL IR 5 MG TABLET PO PRN (23:00)
[2016-11-21] MEDS: PHARMACY COMMUNICATION ORDER MC SCH (23:02)
[2016-11-22] MEDS: METHYLPREDNISOLONE INJ 40 MG/1 ML SDV IV SCH ×2 (02:30→17:32)
[2016-11-22] MEDS: LANSOPRAZOLE 30 MG TAB.RAP.DR PO SCH ×2 (06:31→16:57)
[2016-11-22] MEDS: PREGABALIN 50 MG CAPSULE PO SCH ×3 (06:31→22:25)
[2016-11-22] MEDS: IPRATROPIUM/ALBUTEROL 0.5-2.5 MG/3 ML AMPUL NEB SCH ×3 (08:25→20:42)
[2016-11-22] MEDS: BUDESONIDE NEB 0.5 MG/2 ML AMPUL NEB SCH ×2 (08:26→20:42)
[2016-11-22] MEDS: METOPROLOL TARTRATE 25 MG TABLET PO SCH ×2 (10:14→22:25)
[2016-11-22] MEDS: POTASSIUM CHLORIDE 10 MEQ TABLET.SA PO SCH (10:14)
[2016-11-22] MEDS: ASPIRIN 81 MG TABLET, ENT COATED PO SCH (10:14)
[2016-11-22] MEDS: RANOLAZINE 500 MG TAB.SR.12H PO SCH ×2 (10:14→22:25)
[2016-11-22] MEDS: TORSEMIDE 20 MG TABLET PO SCH (10:14)
[2016-11-22] MEDS: LOSARTAN POTASSIUM 25 MG TABLET PO SCH (10:14)
[2016-11-22] MEDS: CYANOCOBALAMIN (VITAMIN B-12) 1,000 MCG TABLET PO SCH (10:15)
[2016-11-22] MEDS: ENOXAPARIN SODIUM INJ 40 MG/0.4 ML DISP.SYRIN SUBCUT SCH (10:16)
[2016-11-22] MEDS: CEFEPIME HCL 2 GM in DEXTROSE 5%-WATER 50 ML IV SCH ×2 (10:16→22:24)
[2016-11-22] MEDS: NITROGLYCERIN 10 MG (0.4 MG/HR) PATCH.TD24 TD SCH (10:18)
[2016-11-22] MEDS: LIDOCAINE 5% (700 MG) TRANSDERMAL ADH..PATCH TP SCH (10:20)
--- NOTE | 2016-11-22 10:45 | PDOC PROGRESS REPORT ---
Subjective Progress Note for:: 11/22/16 Subjective:: I feel a little bit better Physical Exam Vital Signs: Temp Pulse Resp BP Pulse Ox 97.5 F 67 20 137/41 H 93 11/22/16 07:07 11/22/16 07:07 11/22/16 07:07 11/22/16 07:07 11/22/16 07:07 Intake & Output 11/21/16 11/22/16 11/23/16 06:59 06:59 06:59 Intake Total 2530 1630 Output Total 2100 4100 Balance 430 -2470 Weight 77.1 kg 76.2 kg General appearance: PRESENT: no acute distress, disheveled, obese Head exam: PRESENT: atraumatic, normocephalic Eye exam: PRESENT: conjunctiva pale, EOMI Mouth exam: PRESENT: moist, neck supple Neck exam: ABSENT: carotid bruit, JVD, lymphadenopathy, thyromegaly Respiratory exam: PRESENT: decreased breath sounds, prolonged expiratory phas, rhonchi, symmetrical, wheezes Cardiovascular exam: PRESENT: irregular rhythm Pulses: PRESENT: normal radial pulses GI/Abdominal exam: PRESENT: normal bowel sounds, soft. ABSENT: distended, guarding, mass, organolmegaly, rebound, tenderness Rectal exam: PRESENT: deferred Neurological exam: PRESENT: alert, awake Psychiatric exam: PRESENT: normal mood Skin exam: PRESENT: dry, warm Results Laboratory Results: 11/21/16 06:05 11/21/16 06:05 11/21/16 11/21/16 06:05 06:05 WBC 10.7 H RBC 4.40 Hgb 10.9 L Hct 34.6 L MCV 79 L MCH 24.7 L MCHC 31.4 L RDW 17.6 H Plt Count 244 Seg Neutrophils % Not Reportable Lymphocytes % Not Reportable Monocytes % Not Reportable Eosinophils % Not Reportable Basophils % Not Reportable Absolute Neutrophils Not Reportable Absolute Lymphocytes Not Reportable Absolute Monocytes Not Reportable Absolute Eosinophils Not Reportable Absolute Basophils Not Reportable Sodium 146.3 H Potassium 4.2 Chloride 104 Carbon Dioxide 32 H Anion Gap 10 BUN 44 H Creatinine 0.88 Est GFR ( Amer) > 60 Est GFR (Non-Af Amer) > 60 Glucose 109 Calcium 8.8 Total Bilirubin 0.3 AST 9 L ALT 21 Alkaline Phosphatase 58 Total Protein 5.1 L Albumin 2.9 L Impressions: Chest X-Ray 11/16/16 21:30 IMPRESSION: COPD. NO ACUTE RADIOGRAPHIC FINDING IN THE CHEST OR SIGNIFICANT CHANGE FROM PRIOR STUDY. Assessment & Plan - Diagnosis (1) Acute and chronic respiratory failure with hypercapnia Is this a current diagnosis for this admission?: YesPlan: Slowly improving increased air movement (2) Acute and chronic respiratory failure with hypoxia Is this a current diagnosis for this admission?: Yes (3) Obstructive sleep apnea Is this a current diagnosis for this admission?: YesPlan: Continues to use BiPAP (4) Restless leg syndrome Is this a current diagnosis for this admission?: Yes (5) Tobacco dependency Is this a current diagnosis for this admission?: Yes
[2016-11-22 11:12] LABS: ANION GAP 12 (5-19); BLOOD UREA NITROGEN 43 mg/dL (7-20); CARBON DIOXIDE 32 mmol/L (22-30); CHLORIDE 103 mmol/L (98-107); CREATININE RESULT 0.72 mg/dL (0.52-1.25); GLUCOSE 154 mg/dL (75-110); POTASSIUM 4.4 mmol/L (3.6-5.0)
[2016-11-22 11:13] LABS: CREATINE KINASE < 20 U/L (30-135)
--- NOTE | 2016-11-22 16:03 | PDOC PROGRESS REPORT ---
Subjective Progress Note for:: 11/22/16 Subjective:: Patient is doing better she is now on a nasal cannula at times during the day without severe dyspnea She is alert awake no fever no chills No chest pain She is eating We discussed at length need for her to stop smoking We also discussed pulmonary rehabilitation Physical Exam Vital Signs: Temp Pulse Resp BP Pulse Ox 97.7 F 64 20 161/59 H 94 11/22/16 11:21 11/22/16 13:51 11/22/16 13:51 11/22/16 11:21 11/22/16 13:51 Intake & Output 11/21/16 11/22/16 11/23/16 00:59 00:59 00:59 Intake Total 1860 2180 652 Output Total 2050 2550 3000 Balance -190 370 -5544 Weight 77.1 kg 76.2 kg General appearance: PRESENT: no acute distress Head exam: PRESENT: atraumatic, normocephalic Eye exam: PRESENT: conjunctiva pink, EOMI, PERRLA. ABSENT: scleral icterus Respiratory exam: PRESENT: decreased breath sounds, wheezes. ABSENT: accessory muscle use Cardiovascular exam: PRESENT: RRR. ABSENT: diastolic murmur, rubs, systolic murmur GI/Abdominal exam: PRESENT: normal bowel sounds, soft. ABSENT: distended, guarding, mass, organolmegaly, rebound, tenderness Extremities exam: PRESENT: full ROM. ABSENT: calf tenderness, clubbing, pedal edema Neurological exam: PRESENT: alert, awake, oriented to person, oriented to place , oriented to time, oriented to situation, CN II-XII grossly intact. ABSENT: motor sensory deficit Results Laboratory Results: 11/21/16 06:05 11/22/16 09:10 11/22/16 09:10 Sodium 147.0 H Potassium 4.4 Chloride 103 Carbon Dioxide 32 H Anion Gap 12 BUN 43 H Creatinine 0.72 Est GFR ( Amer) > 60 Est GFR (Non-Af Amer) > 60 Glucose 154 H Calcium 9.0 11/22/16 11/22/16 09:10 13:10 Creatine Kinase < 20 L Troponin I < 0.012 Impressions: Chest X-Ray 11/16/16 21:30 IMPRESSION: COPD. NO ACUTE RADIOGRAPHIC FINDING IN THE CHEST OR SIGNIFICANT CHANGE FROM PRIOR STUDY. Assessment & Plan - Diagnosis (1) Acute and chronic respiratory failure with hypercapnia Is this a current diagnosis for this admission?: Yes (2) Acute and chronic respiratory failure with hypoxia Is this a current diagnosis for this admission?: Yes (3) COPD exacerbation Is this a current diagnosis for this admission?: Yes (4) Type 1 diabetes mellitus Qualifiers: Diabetes mellitus complication status: with unspecified complications Qualified Code(s): E10.8 - Type 1 diabetes mellitus with unspecified complications Is this a current diagnosis for this admission?: Yes (5) Cardiac arrhythmia Qualifiers: Premature depolarization type: ventricular Is this a current diagnosis for this admission?: Yes - Time Time Spent with patient: Patient's condition overall is improving slowly We will continue to taper down steroids Continue the present management We we will likely discharge patient on Saturday to pulmonary rehabilitation for follow-up care Time Spent with patient: 25-34 minutes
[2016-11-22] MEDS: INSULIN LISPRO 100 UNIT/ML 3 ML VIAL SUBCUT PRN (16:58)
--- NOTE | 2016-11-22 20:45 | EKG REPORT ---
SEVERITY:- NORMAL ECG - SINUS RHYTHM : Confirmed by: Osiris Rider 22-Nov-2016 20:44:42
[2016-11-22] MEDS: PHARMACY COMMUNICATION ORDER MC SCH (22:20)
[2016-11-22] MEDS: ATORVASTATIN CALCIUM 40 MG TABLET PO SCH (22:25)
[2016-11-22] MEDS: AZITHROMYCIN 250 MG TABLET PO SCH (22:25)
[2016-11-22] MEDS: ROPINIROLE HCL 2 MG TABLET PO SCH (22:25)
[2016-11-22] MEDS: INSULIN GLARGINE,HUM.REC.ANLOG 300 UNIT/3 ML INSULN.PEN SUBCUT SCH (22:27)
--- NOTE | 2016-11-22 23:58 | Palliative Consultation Report ---
Consultation From:: TATIANNA MALAGON Consult Reason: chronic resp failure - HPI HPI: Palliaitve care visit 11/22/16 7:05-7:30pm Appreciate consult request for this 71 year old lady who has frequently been hospitalized for respiratory failure and once again has been admitted for repsiratory distress and exacerbation COPD. After several days of Bipap and steroids, she is finally doing better and is on nasal cannula without acute distress. I visited with patient and her . We discussed her history and the plans for her to go to [facility] in [place]. I encouraged her with stories of successfro other patients I have known who went there. We discussed her wishes to be full code and she explained that she has been on a ventilator several times and has been able to be weaned each time. Mr. Perez was present during visit. He said there is no point in sending her there because she will not stop smoking. He said they have been in this position many times before, she has never stopped smoking and he doesnt understand why she would be sent to this center for "Nothing". I asked the patient if she planned to stop and knew Dr. Engle had talked with her at length about it earlier today. Mrs. Perez said, "no, I will not stop but I will try to slow down". We discussed the futility of treatment and ventilatory treatment if she isnt going to stop hurting her lungs. Her was very open with his feelings. We discussed how it hurts him to watch her keep hurting herself. He does not smoke but he uses chewing tobacco. Mrs. Perez insists she wants to go to the pulmonary center and wants to continue to be full code. She says she has tried medications and other aides to help her stop smoking but nothing has ever worked. Onset: Last week Onset/Duration: Gradual Quality of Pain: No pain Severity: None Associated Symptoms: Allergy/hay fever, Productive cough, Sore throat Past Medical History(Consults) - General Information Source: Patient, [facility] Records Home Medications: Aspirin [Aspirin EC] 81 mg PO DAILY 11/17/16 Atorvastatin Calcium [Lipitor 40 mg Tablet] 40 mg PO QHS 11/17/16 Cyanocobalamin (Vitamin B-12) [Vitamin B-12 500 mcg Tablet] 500 mcg PO QAM 11/17 Insulin Aspart [Novolog Flexpen] 0 unit SUBCUT .PERSLDINGSCALE 11/17/16 Insulin Glargine,Hum.rec.anlog [Lantus Solostar] 15 unit SQ QHS 11/17/16 Iron Polysaccharide Complex [Ferrex 150] 150 mg PO DAILY 11/17/16 Lidocaine [Lidoderm] 1 each TP Q12 11/17/16 Losartan Potassium [Cozaar 25 mg Tablet] 25 mg PO DAILY 11/17/16 Metoprolol Succinate [Toprol Xl 25 mg Tab.sr] 25 mg PO Q12 11/17/16 Nitroglycerin [Nitro-Dur 10 mg (0.4MG/Hr) Transdermal Patch] 1 each TD DAILY Olopatadine HCl [Pataday] 2.5 ml OU ASDIR PRN 11/17/16 Omeprazole 20 mg PO DAILY 11/17/16 Oxycodone HCl/Acetaminophen [Percocet 10-325 Mg Tablet] 1 tab PO Q6HP PRN Potassium Chloride [Klor-Con 10 Meq Tablet.sa] 10 meq PO DAILY 11/17/16 Prednisone [Deltasone 5 mg Tablet] 5 mg PO Q2D 11/17/16 Prednisone [Deltasone 5 mg Tablet] 5 mg PO Q3D 11/17/16 Pregabalin [Lyrica 50 Mg Capsule] 50 mg PO Q8 11/17/16 Ranolazine [Ranexa 500 mg Tab.sr] 500 mg PO Q12 11/17/16 Roflumilast [Daliresp 500 mcg Tablet] 500 mcg PO DAILY 11/17/16 Ropinirole HCl [Requip 2 Mg Tablet] 2 mg PO QHS 11/17/16 Theophylline Anhydrous 300 mg PO DAILY 11/17/16 Torsemide [Demadex 20 mg Tablet] 20 mg PO DAILY 11/17/16 Allergies/Adverse Reactions: vancomycin Allergy (Verified 07/29/16 11:57) Generalized Itching levofloxacin Adverse Reaction (Verified 07/29/16 14:06) Diarrhea linezolid [From Zyvox] Adverse Reaction (Verified 07/29/16 14:06) Diarrhea - Social History Lives with: Family, Spouse/Significant other Family History: COPD, DM, Hypertension Parental Family History Reviewed: No Children Family History Reviewed: No Sibling(s) Family History Reviewed.: No Smoking Status: Current Some Day Smoker Cigarettes Packs Per Day: 1 Frequency of Alcohol Use: None Hx Recreational Drug Use: No Drugs: None Hx Prescription Drug Abuse: No - Past Medical History Cardiac Medical History: Reports: Hx Congestive Heart Failure - Lasix , Hx Coronary Artery Disease - CABG, Hx Hypercholesterolemia - zocor , Hx Hypertension Denies: Hx Atrial Fibrillation, Hx DVT, Hx Heart Attack, Hx Peripheral Vascular Disease, Hx Pulmonary Embolism, Hx Heart Murmur Pulmonary Medical History: Reports: Hx Asthma, Hx COPD, Hx Pneumonia - MRSA 2014 , Hx Sleep Apnea - bipap , Hx Tuberculosis - +PPD in s - on meds x 1 year Denies: Hx Bronchitis, Hx Respiratory Failure Neurological Medical History: Denies: Hx Cerebrovascular Accident, Hx Seizures Endocrine Medical History: Reports: Hx Diabetes Mellitus Type 1, Hx Diabetes Mellitus Type 2. Denies: Hx Graves' Disease, Hx Hyperthyroidism, Hx Hypothyroidism Renal/ Medical History: Denies: Hx End Stage Renal Disease, Hx Kidney Stones, Hx Ovarian Cysts, Hx Peritoneal Dialysis, Hx Pelvic Inflammatory Disease Malignancy Medical History: Denies: Hx Breast Cancer, Hx Cervical Cancer, Hx Leukemia, Hx Lung Cancer, Hx Ovarian Cancer GI Medical History: Reports: Hx Gastroesophageal Reflux Disease. Denies: Hx Cirrhosis, Hx Crohn's Disease, Hx Hepatitis, Hx Hiatal Hernia, Hx Irritable Bowel, Hx Liver Failure, Hx Ulcer Musculoskeltal Medical History: Reports Hx Arthritis, Denies Hx Fibromyalgia, Denies Hx Muscular Dystrophy Skin Medical History: Denies Hx Eczema, Denies Hx Psoriasis Psychiatric Medical History: Reports: Hx Anxiety, Hx Depression Denies: Hx Bipolar Disorder, Hx Post Traumatic Stress Disorder, Hx Schizophrenia Traumatic Medical History: Reports: Hx Fractures - lumbar Infectious Medical History: Reports: Hx MRSA - Reported MRSA pneumonia, 2014. Denies: Hx C-Diff, Hx Hepatitis, Hx HIV Hematology: Reports: Anemia - occ Denies: Hemophilia, Sickle Cell Disease - Surgical History Past Surgical History: Reports: Hx Appendectomy, Hx Cardiac Surgery - CABGx2, Hx Cholecystectomy, Hx Coronary Artery Bypass Graft - 2008 x 2 grafts , Hx Hysterectomy, Hx Open Heart Surgery - 3v, Hx Orthopedic Surgery - Left footsurgery, cyst removal from left hand, Hx Tonsillectomy. Denies: Hx Bowel Surgery, Hx Section, Hx Colostomy, Hx Gastric Bypass Surgery, Hx Herniorrhaphy, Hx Mastectomy, Hx Pacemaker, Hx Tubal Ligation Review of systems Constitutional: Weakness EENT: Sinus pressure, Sinus discharge - States she has had sinus problems and took mustapha which is what put her in the hospital Cardiovascular: Heart racing, Dyspnea Respiratory: Cough, Short of breath, Wheezing Musculoskeltal: Muscle pain Neurological/Psychological: Anxiety Ojective:Exam Vital Signs: Temp Pulse Resp BP Pulse Ox 98.2 F 80 20 143/52 H 94 11/22/16 19:59 11/22/16 20:42 11/22/16 20:42 11/22/16 19:59 11/22/16 20:42 Intake & Output 11/21/16 11/22/16 11/23/16 06:59 06:59 06:59 Intake Total 2530 1630 695 Output Total 2100 4100 1400 Balance 430 -4516 -122 Weight 77.1 kg 76.2 kg - General General Appearance: Alert In distress: None - HEENT Head: Normocephalic Mucous membrane: Normal - Neck Neck: Normal - Respiratory Respiratory Status: No respiratory distress - breathing easily on nasal cannula Objective-Diagnostic Laboratory: 11/21/16 06:05 11/22/16 09:10 11/22/16 09:10 Sodium 147.0 H Potassium 4.4 Chloride 103 Carbon Dioxide 32 H Anion Gap 12 BUN 43 H Creatinine 0.72 Est GFR ( Amer) > 60 Est GFR (Non-Af Amer) > 60 Glucose 154 H Calcium 9.0 11/22/16 11/22/16 09:10 13:10 Creatine Kinase < 20 L Troponin I < 0.012 Plan and Recommendation Plan and Recommendation: Patient wants to go to [place] and says she emilie try to cut down on number of cigarettes she smokes. She wishes to continue to be full code with intubation if needed. Emotional support offered to both patient and her . NO recomendations for med changes. - Time Spent with Patient Time spent with patient: 15 to 30 Minutes Time: 25 min with patient and , 20 min chart review
[2016-11-23] MEDS: PREGABALIN 50 MG CAPSULE PO SCH ×3 (05:23→21:16)
[2016-11-23] MEDS: LANSOPRAZOLE 30 MG TAB.RAP.DR PO SCH ×2 (05:23→17:21)
[2016-11-23] MEDS: METHYLPREDNISOLONE INJ 40 MG/1 ML SDV IV SCH ×2 (05:23→17:21)
--- NOTE | 2016-11-23 07:39 | PDOC PROGRESS REPORT ---
Subjective Progress Note for:: 11/23/16 Subjective:: Patient is feeling better She is sleeping comfortably still with the BiPAP on She has been oxygenating adequately on nasal cannula during the day and uses BiPAP only intermittently She has no chest pain , no fever Physical Exam Vital Signs: Temp Pulse Resp BP Pulse Ox 97.9 F 83 24 H 156/64 H 94 11/23/16 04:39 11/23/16 04:39 11/23/16 06:12 11/23/16 04:39 11/23/16 06:12 Intake & Output 11/22/16 11/23/16 11/24/16 00:59 00:59 00:59 Intake Total 2180 1365 72 Output Total 2550 4300 Balance -370 -2935 72 Weight 77.1 kg 76.2 kg General appearance: PRESENT: no acute distress, cooperative Head exam: PRESENT: atraumatic, normocephalic Eye exam: PRESENT: conjunctiva pink, EOMI, PERRLA. ABSENT: scleral icterus Neck exam: ABSENT: carotid bruit, JVD, lymphadenopathy, thyromegaly Respiratory exam: PRESENT: decreased breath sounds - Bilaterally, rales - Right lung field, wheezes. ABSENT: accessory muscle use, chest wall tenderness Cardiovascular exam: PRESENT: RRR. ABSENT: diastolic murmur, rubs, systolic murmur Pulses: PRESENT: normal dorsalis pedis pul Vascular exam: PRESENT: normal capillary refill Neurological exam: PRESENT: alert, awake, oriented to person, oriented to place , oriented to time, oriented to situation, CN II-XII grossly intact. ABSENT: motor sensory deficit Results Laboratory Results: 11/21/16 06:05 11/22/16 09:10 11/22/16 09:10 Sodium 147.0 H Potassium 4.4 Chloride 103 Carbon Dioxide 32 H Anion Gap 12 BUN 43 H Creatinine 0.72 Est GFR ( Amer) > 60 Est GFR (Non-Af Amer) > 60 Glucose 154 H Calcium 9.0 11/22/16 11/22/16 09:10 13:10 Creatine Kinase < 20 L Troponin I < 0.012 Impressions: Chest X-Ray 11/16/16 21:30 IMPRESSION: COPD. NO ACUTE RADIOGRAPHIC FINDING IN THE CHEST OR SIGNIFICANT CHANGE FROM PRIOR STUDY. Assessment & Plan - Diagnosis (1) Acute and chronic respiratory failure with hypercapnia Is this a current diagnosis for this admission?: Yes (2) Acute and chronic respiratory failure with hypoxia Is this a current diagnosis for this admission?: Yes (3) COPD exacerbation Is this a current diagnosis for this admission?: Yes (4) Type 1 diabetes mellitus Qualifiers: Diabetes mellitus complication status: with unspecified complications Qualified Code(s): E10.8 - Type 1 diabetes mellitus with unspecified complications Is this a current diagnosis for this admission?: Yes (5) Cardiac arrhythmia Qualifiers: Premature depolarization type: ventricular Is this a current diagnosis for this admission?: Yes - Time Time Spent with patient: On the monitor patient is in normal sinus rhythm She did not have any further cardiac arrhythmia since metoprolol was initiated She appears extremely stable at this time She has been evaluated by palliative care; and agrees to go to pulmonary rehabilitation Patient will be discharged when a bed is available Time Spent with patient: 25-34 minutes
[2016-11-23] MEDS: IPRATROPIUM/ALBUTEROL 0.5-2.5 MG/3 ML AMPUL NEB SCH ×3 (08:00→20:13)
[2016-11-23] MEDS: BUDESONIDE NEB 0.5 MG/2 ML AMPUL NEB SCH ×2 (08:00→20:14)
[2016-11-23] MEDS: ASPIRIN 81 MG TABLET, ENT COATED PO SCH (09:15)
[2016-11-23] MEDS: ENOXAPARIN SODIUM INJ 40 MG/0.4 ML DISP.SYRIN SUBCUT SCH (09:15)
[2016-11-23] MEDS: TORSEMIDE 20 MG TABLET PO SCH (09:15)
[2016-11-23] MEDS: LOSARTAN POTASSIUM 25 MG TABLET PO SCH (09:15)
[2016-11-23] MEDS: POTASSIUM CHLORIDE 10 MEQ TABLET.SA PO SCH (09:15)
[2016-11-23] MEDS: RANOLAZINE 500 MG TAB.SR.12H PO SCH ×2 (09:15→21:15)
[2016-11-23] MEDS: NITROGLYCERIN 10 MG (0.4 MG/HR) PATCH.TD24 TD SCH (09:15)
[2016-11-23] MEDS: CEFPODOXIME 200 MG TABLET PO SCH ×2 (09:15→21:14)
[2016-11-23] MEDS: CYANOCOBALAMIN (VITAMIN B-12) 1,000 MCG TABLET PO SCH (09:15)
[2016-11-23] MEDS: METOPROLOL TARTRATE 25 MG TABLET PO SCH ×2 (09:15→21:15)
[2016-11-23] MEDS: LIDOCAINE 5% (700 MG) TRANSDERMAL ADH..PATCH TP SCH (09:15)
[2016-11-23] MEDS: INSULIN LISPRO 100 UNIT/ML 3 ML VIAL SUBCUT PRN ×2 (12:13→22:19)
[2016-11-23] MEDS: AZITHROMYCIN 250 MG TABLET PO SCH (21:14)
[2016-11-23] MEDS: ATORVASTATIN CALCIUM 40 MG TABLET PO SCH (21:15)
[2016-11-23] MEDS: ROPINIROLE HCL 2 MG TABLET PO SCH (21:19)
[2016-11-23] MEDS ORDERED: CEFEPIME HCL 2 GM in DEXTROSE 5%-WATER 50 ML IV SCH (22:00)
[2016-11-23] MEDS: INSULIN GLARGINE,HUM.REC.ANLOG 300 UNIT/3 ML INSULN.PEN SUBCUT SCH (22:19)
[2016-11-24] MEDS: PHARMACY COMMUNICATION ORDER MC SCH ×2 (03:30→22:00)
[2016-11-24] MEDS: LANSOPRAZOLE 30 MG TAB.RAP.DR PO SCH ×2 (05:41→16:01)
[2016-11-24] MEDS: METHYLPREDNISOLONE INJ 40 MG/1 ML SDV IV SCH ×2 (05:41→17:09)
[2016-11-24] MEDS: PREGABALIN 50 MG CAPSULE PO SCH ×3 (05:41→22:36)
[2016-11-24] MEDS: CYANOCOBALAMIN (VITAMIN B-12) 1,000 MCG TABLET PO SCH (07:28)
[2016-11-24] MEDS: ENOXAPARIN SODIUM INJ 40 MG/0.4 ML DISP.SYRIN SUBCUT SCH (07:29)
[2016-11-24] MEDS: BUDESONIDE NEB 0.5 MG/2 ML AMPUL NEB SCH ×2 (08:04→20:52)
[2016-11-24] MEDS: IPRATROPIUM/ALBUTEROL 0.5-2.5 MG/3 ML AMPUL NEB SCH ×3 (08:04→20:52)
[2016-11-24] MEDS: CEFPODOXIME 200 MG TABLET PO SCH ×2 (09:15→22:35)
[2016-11-24] MEDS: LIDOCAINE 5% (700 MG) TRANSDERMAL ADH..PATCH TP SCH (09:15)
[2016-11-24] MEDS: ASPIRIN 81 MG TABLET, ENT COATED PO SCH (09:22)
[2016-11-24] MEDS: RANOLAZINE 500 MG TAB.SR.12H PO SCH ×2 (09:22→22:36)
[2016-11-24] MEDS: POTASSIUM CHLORIDE 10 MEQ TABLET.SA PO SCH (09:22)
[2016-11-24] MEDS: LOSARTAN POTASSIUM 25 MG TABLET PO SCH (09:23)
[2016-11-24] MEDS: TORSEMIDE 20 MG TABLET PO SCH (09:24)
[2016-11-24] MEDS: NITROGLYCERIN 10 MG (0.4 MG/HR) PATCH.TD24 TD SCH (09:24)
[2016-11-24] MEDS: METOPROLOL TARTRATE 25 MG TABLET PO SCH ×2 (09:24→22:36)
[2016-11-24] MEDS: INSULIN LISPRO 100 UNIT/ML 3 ML VIAL SUBCUT PRN ×2 (11:55→16:18)
[2016-11-24] MEDS ORDERED: OXYCODONE HCL IR 5 MG TABLET PO PRN (15:17)
--- NOTE | 2016-11-24 16:29 | PDOC PROGRESS REPORT ---
Subjective Progress Note for:: 11/23/16 Subjective:: Improving over the last 24h Physical Exam Vital Signs: Temp Pulse Resp BP Pulse Ox 97.2 F 71 24 H 130/48 H 96 11/24/16 15:41 11/24/16 15:41 11/24/16 15:41 11/24/16 15:41 11/24/16 15:41 Intake & Output 11/23/16 11/24/16 11/25/16 06:59 06:59 06:59 Intake Total 1007 1680 540 Output Total 1900 2300 200 Balance -893 -620 340 Weight 74.6 kg General appearance: PRESENT: no acute distress, cooperative, disheveled, obese Head exam: PRESENT: atraumatic, normocephalic Eye exam: PRESENT: conjunctiva pale, EOMI Mouth exam: PRESENT: neck supple Neck exam: ABSENT: carotid bruit, JVD, lymphadenopathy, thyromegaly Respiratory exam: PRESENT: decreased breath sounds, prolonged expiratory phas, rhonchi, symmetrical, unlabored, wheezes Cardiovascular exam: PRESENT: RRR, +S1, +S2 Pulses: PRESENT: normal radial pulses GI/Abdominal exam: PRESENT: normal bowel sounds, soft. ABSENT: distended, guarding, mass, organolmegaly, rebound, tenderness Rectal exam: PRESENT: deferred Musculoskeletal exam: PRESENT: normal inspection Neurological exam: PRESENT: alert, awake Psychiatric exam: PRESENT: normal mood Skin exam: PRESENT: dry, warm Results Laboratory Results: 11/21/16 06:05 11/22/16 09:10 11/22/16 11/22/16 09:10 13:10 Creatine Kinase < 20 L Troponin I < 0.012 Impressions: Chest X-Ray 11/16/16 21:30 IMPRESSION: COPD. NO ACUTE RADIOGRAPHIC FINDING IN THE CHEST OR SIGNIFICANT CHANGE FROM PRIOR STUDY. Assessment & Plan - Diagnosis (1) Acute and chronic respiratory failure with hypercapnia Is this a current diagnosis for this admission?: YesPlan: SlowClinical improvement increased air movement Persistent wheezes rhonchi (2) Acute and chronic respiratory failure with hypoxia Is this a current diagnosis for this admission?: YesPlan: Less reliant on noninvasive pressure ventilation (3) Obstructive sleep apnea Is this a current diagnosis for this admission?: Yes (4) Restless leg syndrome Is this a current diagnosis for this admission?: Yes (5) Tobacco dependency Is this a current diagnosis for this admission?: Yes
--- NOTE | 2016-11-24 16:32 | PDOC PROGRESS REPORT ---
Subjective Progress Note for:: 11/24/16 Subjective:: Continues to improve Physical Exam Vital Signs: Temp Pulse Resp BP Pulse Ox 97.2 F 71 24 H 130/48 H 96 11/24/16 15:41 11/24/16 15:41 11/24/16 15:41 11/24/16 15:41 11/24/16 15:41 Intake & Output 11/23/16 11/24/16 11/25/16 06:59 06:59 06:59 Intake Total 1007 1680 540 Output Total 1900 2300 200 Balance -893 -620 340 Weight 74.6 kg General appearance: PRESENT: no acute distress, cooperative, disheveled, obese Head exam: PRESENT: atraumatic, normocephalic Eye exam: PRESENT: conjunctiva pale, EOMI Mouth exam: PRESENT: moist, neck supple Respiratory exam: PRESENT: decreased breath sounds, prolonged expiratory phas, rhonchi, symmetrical, unlabored, wheezes Cardiovascular exam: PRESENT: RRR, +S1, +S2 Pulses: PRESENT: normal radial pulses GI/Abdominal exam: PRESENT: normal bowel sounds, soft. ABSENT: distended, guarding, mass, organolmegaly, rebound, tenderness Rectal exam: PRESENT: deferred Neurological exam: PRESENT: alert, awake Psychiatric exam: PRESENT: normal mood Skin exam: PRESENT: dry, warm Results Laboratory Results: 11/21/16 06:05 11/22/16 09:10 11/22/16 11/22/16 09:10 13:10 Creatine Kinase < 20 L Troponin I < 0.012 Impressions: Chest X-Ray 11/16/16 21:30 IMPRESSION: COPD. NO ACUTE RADIOGRAPHIC FINDING IN THE CHEST OR SIGNIFICANT CHANGE FROM PRIOR STUDY. Assessment & Plan - Diagnosis (1) Acute and chronic respiratory failure with hypercapnia Is this a current diagnosis for this admission?: Yes (2) Acute and chronic respiratory failure with hypoxia Is this a current diagnosis for this admission?: Yes (3) Obstructive sleep apnea Is this a current diagnosis for this admission?: Yes (4) Restless leg syndrome Is this a current diagnosis for this admission?: Yes (5) Tobacco dependency Is this a current diagnosis for this admission?: Yes
[2016-11-24] MEDS: AZITHROMYCIN 250 MG TABLET PO SCH (22:35)
[2016-11-24] MEDS: INSULIN GLARGINE,HUM.REC.ANLOG 300 UNIT/3 ML INSULN.PEN SUBCUT SCH (22:35)
[2016-11-24] MEDS: ATORVASTATIN CALCIUM 40 MG TABLET PO SCH (22:36)
[2016-11-24] MEDS: ROPINIROLE HCL 2 MG TABLET PO SCH (22:36)
[2016-11-25] MEDS: INSULIN LISPRO 100 UNIT/ML 3 ML VIAL SUBCUT PRN ×2 (00:30→17:45)
[2016-11-25] MEDS: LANSOPRAZOLE 30 MG TAB.RAP.DR PO SCH ×2 (05:38→17:45)
[2016-11-25] MEDS: METHYLPREDNISOLONE INJ 40 MG/1 ML SDV IV SCH (05:38)
[2016-11-25] MEDS: PREGABALIN 50 MG CAPSULE PO SCH ×3 (05:38→22:03)
[2016-11-25] MEDS: BUDESONIDE NEB 0.5 MG/2 ML AMPUL NEB SCH ×2 (08:49→20:51)
[2016-11-25] MEDS: IPRATROPIUM/ALBUTEROL 0.5-2.5 MG/3 ML AMPUL NEB SCH ×3 (08:49→20:51)
--- NOTE | 2016-11-25 09:53 | PDOC PROGRESS REPORT ---
Subjective Progress Note for:: 11/25/16 Subjective:: doing extremely well improved dyspnea on nasal cannula large part day mentation intact Physical Exam Vital Signs: Temp Pulse Resp BP Pulse Ox 98.0 F 66 23 H 108/69 94 11/25/16 04:36 11/25/16 04:36 11/25/16 05:10 11/25/16 04:36 11/25/16 04:36 Intake & Output 11/24/16 11/25/16 11/26/16 00:59 00:59 00:59 Intake Total 1750 1532 302 Output Total 2300 2500 600 Balance -550 -968 -298 Weight 74.6 kg 74 kg General appearance: PRESENT: no acute distress, well-developed, well-nourished Head exam: PRESENT: atraumatic, normocephalic Eye exam: PRESENT: conjunctiva pink, EOMI, PERRLA. ABSENT: scleral icterus Ear exam: PRESENT: normal external ear exam Mouth exam: PRESENT: moist, tongue midline Neck exam: ABSENT: carotid bruit, JVD, lymphadenopathy, thyromegaly Respiratory exam: PRESENT: decreased breath sounds. ABSENT: rales, rhonchi, wheezes Cardiovascular exam: PRESENT: RRR. ABSENT: diastolic murmur, rubs, systolic murmur Pulses: PRESENT: normal dorsalis pedis pul Vascular exam: PRESENT: normal capillary refill GI/Abdominal exam: PRESENT: normal bowel sounds, soft. ABSENT: distended, guarding, mass, organolmegaly, rebound, tenderness Rectal exam: PRESENT: deferred Extremities exam: PRESENT: full ROM. ABSENT: calf tenderness, clubbing, pedal edema Neurological exam: PRESENT: alert, awake, oriented to person, oriented to place , oriented to time, oriented to situation, CN II-XII grossly intact. ABSENT: motor sensory deficit Psychiatric exam: PRESENT: appropriate affect, normal mood. ABSENT: homicidal ideation, suicidal ideation Skin exam: PRESENT: dry, intact, warm. ABSENT: cyanosis, rash Results Laboratory Results: 11/21/16 06:05 11/22/16 09:10 11/22/16 11/22/16 09:10 13:10 Creatine Kinase < 20 L Troponin I < 0.012 Impressions: Chest X-Ray 11/16/16 21:30 IMPRESSION: COPD. NO ACUTE RADIOGRAPHIC FINDING IN THE CHEST OR SIGNIFICANT CHANGE FROM PRIOR STUDY. Assessment & Plan - Diagnosis (1) Acute and chronic respiratory failure with hypercapnia Is this a current diagnosis for this admission?: Yes (2) Acute and chronic respiratory failure with hypoxia Is this a current diagnosis for this admission?: Yes (3) COPD exacerbation Is this a current diagnosis for this admission?: Yes (4) Type 1 diabetes mellitus Qualifiers: Diabetes mellitus complication status: with unspecified complications Qualified Code(s): E10.8 - Type 1 diabetes mellitus with unspecified complications Is this a current diagnosis for this admission?: Yes (5) Cardiac arrhythmia Qualifiers: Premature depolarization type: ventricular Is this a current diagnosis for this admission?: Yes - Time Time Spent with patient: transfer to [facility] in am for pulmonary rehab Time Spent with patient: 25-34 minutes
[2016-11-25] MEDS: LIDOCAINE 5% (700 MG) TRANSDERMAL ADH..PATCH TP SCH (10:47)
[2016-11-25] MEDS: CEFPODOXIME 200 MG TABLET PO SCH ×2 (10:48→22:03)
[2016-11-25] MEDS: TORSEMIDE 20 MG TABLET PO SCH (10:50)
[2016-11-25] MEDS: RANOLAZINE 500 MG TAB.SR.12H PO SCH ×2 (10:50→22:02)
[2016-11-25] MEDS: NITROGLYCERIN 10 MG (0.4 MG/HR) PATCH.TD24 TD SCH (10:51)
[2016-11-25] MEDS: LOSARTAN POTASSIUM 25 MG TABLET PO SCH (10:51)
[2016-11-25] MEDS: POTASSIUM CHLORIDE 10 MEQ TABLET.SA PO SCH (10:51)
[2016-11-25] MEDS: ASPIRIN 81 MG TABLET, ENT COATED PO SCH (10:51)
[2016-11-25] MEDS: METOPROLOL TARTRATE 25 MG TABLET PO SCH ×2 (10:51→22:03)
[2016-11-25] MEDS: CYANOCOBALAMIN (VITAMIN B-12) 1,000 MCG TABLET PO SCH (10:52)
[2016-11-25] MEDS: ENOXAPARIN SODIUM INJ 40 MG/0.4 ML DISP.SYRIN SUBCUT SCH (10:53)
[2016-11-25] MEDS: PHARMACY COMMUNICATION ORDER MC SCH (22:00)
[2016-11-25] MEDS: ROPINIROLE HCL 2 MG TABLET PO SCH (22:02)
[2016-11-25] MEDS: AZITHROMYCIN 250 MG TABLET PO SCH (22:02)
[2016-11-25] MEDS: ATORVASTATIN CALCIUM 40 MG TABLET PO SCH (22:03)
[2016-11-25] MEDS: INSULIN GLARGINE,HUM.REC.ANLOG 300 UNIT/3 ML INSULN.PEN SUBCUT SCH (22:03)
[2016-11-25] MEDS: ALBUTEROL SULFATE 0.083% NEB 2.5 MG/3 ML AMPUL NEB PRN (23:51)
[2016-11-26] MEDS: PREGABALIN 50 MG CAPSULE PO SCH ×3 (05:10→21:45)
[2016-11-26] MEDS: LANSOPRAZOLE 30 MG TAB.RAP.DR PO SCH ×2 (05:10→17:27)
[2016-11-26] MEDS: BUDESONIDE NEB 0.5 MG/2 ML AMPUL NEB SCH ×2 (07:59→20:05)
[2016-11-26] MEDS: IPRATROPIUM/ALBUTEROL 0.5-2.5 MG/3 ML AMPUL NEB SCH ×3 (07:59→20:04)
--- NOTE | 2016-11-26 09:55 | PDOC TRANSFER SUMMARY ---
General - Admit/Disc Date/PCP Admission Date/Primary Care Provider: 11/17/16 02:51 Discharge Date: 11/26/16 - Discharge Diagnosis (1) Acute and chronic respiratory failure with hypercapnia Is this a current diagnosis for this admission?: YesSummary: 11/19/16 11:55 ABG pH 7.34 L ABG pCO2 49.5 H ABG pO2 56.7 L FiO2 6L Upon admission patient had evidence of acute on chronic respiratory failure with hypoxemia and hypercapnia She was initially placed on BiPAP support with 65% O2 Patient is still intermittently on BiPAP support BiPAP settings are as follow: 07/31 rate 10 35% O2 ] Patient uses BiPAP as needed during day or night She usually is comfortable on nasal O2 during meals Respiratory failure secondary to acute on chronic COPD exacerbation, pneumonia (2) Acute and chronic respiratory failure with hypoxia Is this a current diagnosis for this admission?: Yes (3) COPD exacerbation Is this a current diagnosis for this admission?: YesSummary: Patient was treated with steroids and nebs She will be discharged on her current medications Patient's condition overall improved during her hospital stay (4) Type 1 diabetes mellitus Is this a current diagnosis for this admission?: YesSummary: Insulin-dependent Discharge on Lantus and coverage (5) Cardiac arrhythmia Is this a current diagnosis for this admission?: YesSummary: Patient did have an episode of V. tach during this hospitalization Echocardiogram showed normal left ventricular function Mild aortic stenosis Moderate TR Moderate to severe pulmonary hypertension Patient was continued on Toprol-XL by mouth twice a day - Additional Information Resuscitation Status: Full Code Discharge Diet: Cardiac, Diabetic Discharge Activity: Activity As Tolerated Home Medications: Aspirin [Aspirin EC] 81 mg PO DAILY 11/17/16 Atorvastatin Calcium [Lipitor 40 mg Tablet] 40 mg PO QHS 11/17/16 Cyanocobalamin (Vitamin B-12) [Vitamin B-12 500 mcg Tablet] 500 mcg PO QAM 11/17 Insulin Aspart [Novolog Flexpen] 0 unit SUBCUT .PERSLDINGSCALE 11/17/16 Insulin Glargine,Hum.rec.anlog [Lantus Solostar] 15 unit SQ QHS 11/17/16 Iron Polysaccharide Complex [Ferrex 150] 150 mg PO DAILY 11/17/16 Losartan Potassium [Cozaar 25 mg Tablet] 25 mg PO DAILY 11/17/16 Metoprolol Succinate [Toprol Xl 25 mg Tab.sr] 25 mg PO Q12 11/17/16 Nitroglycerin [Nitro-Dur 10 mg (0.4MG/Hr) Transdermal Patch] 1 each TD DAILY Olopatadine HCl [Pataday] 2.5 ml OU ASDIR PRN 11/17/16 Omeprazole 20 mg PO DAILY 11/17/16 Potassium Chloride [Klor-Con 10 Meq Tablet.sa] 10 meq PO DAILY 11/17/16 Pregabalin [Lyrica 50 mg Capsule] 50 mg PO Q8 11/17/16 Ranolazine [Ranexa 500 mg Tab.sr] 500 mg PO Q12 11/17/16 Roflumilast [Daliresp 500 mcg Tablet] 500 mcg PO DAILY 11/17/16 Ropinirole HCl [Requip 2 mg Tablet] 2 mg PO QHS 11/17/16 Torsemide [Demadex 20 mg Tablet] 20 mg PO DAILY 11/17/16 Albuterol Sulfate [Ventolin 0.083% Neb 2.5 mg/3 mL Ampul] 2.5 mg NEB RTQ4HP PRN #30 vial.neb 11/26/16 Budesonide [Pulmicort Neb 0.5 mg/2 ml Ampul] 0.5 mg NEB RTQ12 #20 ampul.neb 11/09 Insulin Lispro [Humalog Insulin (Lispro) 100 unit/mL] 0 - 12 unit SUBCUT ACHSP PRN #1 unit 11/26/16 Lidocaine [Lidoderm 5% (700 mg) Transdermal Patch] 2 patch TP DAILY #60 adh..patch 11/26/16 Nicotine [Nicoderm 14 mg/24 Hr Transdermal Patch] 1 each TD DAILYP PRN #30 patch.td24 11/26/16 Oxycodone HCl [Oxy-Ir 5 mg Tablet] 2.5 mg PO Q8HP PRN #30 tablet 11/26/16 Prednisone [Deltasone 20 mg Tablet] 40 mg PO DAILY #30 tablet 11/26/16 History of Present Illness Admission Date/PCP: 11/17/16 02:51 History of Present Illness: DAGO GRAFF is a 71 year old female, long-term smoker, half a pack per day at present, with 3 L oxygen per nasal cannula 18/03 Home O2 dependent COPD, who presents to the emergency room for evaluation of a 2 to three-day history of slowly progressive difficulty breathing, in particular with much of any exertion. Mostly a dry cough. Fever to 101. Increased use of albuterol nebulizer at home, without relief. No chest or abdominal pain. No nausea vomiting, fever or chills. Has been intubated 3 times in the past for respiratory difficulty. Hospitalized on our service August 05 through the of last year with discharge diagnoses including aspiration pneumonia with respiratory failure and hypoglycemia. Discharge summary has been reviewed. Was admitted to our service May 22 of last year for cough and shortness of breath. History and physical has been reviewed. Patient was admitted to [facility] with diagnosis of respiratory failure under Hospitalist's service Hospital Course Hospital Course: See above Patient was admitted with acute on chronic respiratory failure, chronic tobacco dependency Patient did improve during the hospital stay to the point that she can be off BiPAP at times She was treated for pneumonia up until day of discharge and completed 10 days of treatment She will be transferred to pulmonary rehabilitation Physical Exam Vital Signs: Temp Pulse Resp BP Pulse Ox 97.1 F 53 L 20 115/37 L 98 11/26/16 07:32 11/26/16 07:32 11/26/16 07:32 11/26/16 07:32 11/26/16 07:32 Intake & Output 11/25/16 11/26/16 11/27/16 00:59 00:59 00:59 Intake Total 1532 2335 2 Output Total 2500 3200 200 Balance -968 -865 -198 Weight 74.6 kg 74 kg 74 kg Results Laboratory Results: 11/21/16 06:05 11/22/16 09:10 11/22/16 11/22/16 09:10 13:10 Creatine Kinase < 20 L Troponin I < 0.012 11/21/16 06:05 11/22/16 09:10 MCV 79 fl (80-97) L 11/21/16 06:05 MCH 24.7 pg (27.0-33.4) L 11/21/16 06:05 MCHC 31.4 g/dL (32.0-36.0) L 11/21/16 06:05 RDW 17.6 % (11.5-14.0) H 11/21/16 06:05 Seg Neutrophils % Not Reportable 11/21/16 06:05 Lymphocytes % Not Reportable 11/21/16 06:05 Monocytes % Not Reportable 11/21/16 06:05 Eosinophils % Not Reportable 11/21/16 06:05 Basophils % Not Reportable 11/21/16 06:05 Absolute Neutrophils Not Reportable 11/21/16 06:05 Absolute Lymphocytes Not Reportable 11/21/16 06:05 Absolute Monocytes Not Reportable 11/21/16 06:05 Absolute Eosinophils Not Reportable 11/21/16 06:05 Absolute Basophils Not Reportable 11/21/16 06:05 Carbonic Acid 1.49 mmol/L (1.05-1.35) H 11/19/16 11:55 HCO3/H2CO3 Ratio 17:1 11/19/16 11:55 ABG pH 7.34 (7.35-7.45) L 11/19/16 11:55 ABG pCO2 49.5 mmHg (35-45) H 11/19/16 11:55 ABG pO2 56.7 mmHg (80-100) L 11/19/16 11:55 ABG HCO3 25.9 mmol/L (20-26) 11/19/16 11:55 ABG O2 Saturation 87.5 % (94-98) L 11/19/16 11:55 ABG Base Excess -0.4 mmol/L 11/19/16 11:55 VBG pH 7.39 (7.30-7.42) 11/17/16 05:19 VBG pCO2 48.9 mmHg (35-63) 11/17/16 05:19 VBG HCO3 28.8 mmol/L (20-32) 11/17/16 05:19 VBG Base Excess 3.0 mmol/L 11/17/16 05:19 FiO2 6L 11/19/16 11:55 Chloride 103 mmol/L (98-107) 11/22/16 09:10 Carbon Dioxide 32 mmol/L (22-30) H 11/22/16 09:10 Anion Gap 12 (5-19) 11/22/16 09:10 Est GFR ( Amer) > 60 (>60) 11/22/16 09:10 Est GFR (Non-Af Amer) > 60 (>60) 11/22/16 09:10 Glucose 154 mg/dL (75-110) H 11/22/16 09:10 Calcium 9.0 mg/dL (8.4-10.2) 11/22/16 09:10 Magnesium 2.2 mg/dL (1.6-2.3) 11/20/16 05:43 Total Bilirubin 0.3 mg/dL (0.2-1.3) 11/21/16 06:05 AST 9 U/L (14-36) L 11/21/16 06:05 ALT 21 U/L (9-52) 11/21/16 06:05 Alkaline Phosphatase 58 U/L (38-126) 11/21/16 06:05 Total Protein 5.1 g/dL (6.3-8.2) L 11/21/16 06:05 Albumin 2.9 g/dL (3.5-5.0) L 11/21/16 06:05 Urine Color YELLOW 11/17/16 05:42 Urine Appearance SLIGHTLY-CLOUDY 11/17/16 05:42 Urine pH 5.0 (5.0-9.0) 11/17/16 05:42 Ur Specific [place] 1.012 11/17/16 05:42 Urine Protein NEGATIVE mg/dL (NEGATIVE) 11/17/16 05:42 Urine Glucose (UA) NEGATIVE mg/dL (NEGATIVE) 11/17/16 05:42 Urine Ketones NEGATIVE mg/dL (NEGATIVE) 11/17/16 05:42 Urine Blood NEGATIVE (NEGATIVE) 11/17/16 05:42 Urine Nitrite NEGATIVE (NEGATIVE) 11/17/16 05:42 Ur Leukocyte Esterase MODERATE (NEGATIVE) H 11/17/16 05:42 Urine WBC (Auto) 13 /HPF 11/17/16 05:42 Urine RBC (Auto) 2 /HPF 11/17/16 05:42 11/16/16 11/16/16 11/22/16 21:47 22:52 09:10 Creatine Kinase 35 < 20 L CK-MB (CK-2) 0.25 Troponin I 0.014 11/22/16 13:10 Creatine Kinase CK-MB (CK-2) Troponin I < 0.012 11/19/16 20:30 Gram Stain - Final Sputum Sputum Culture - Final 11/17/16 09:05 MRSA Surveillance Culture - Final Nasophary ([facility] Only) MRSA RECOVERED 11/17/16 01:16 Blood Culture - Final Blood NO GROWTH IN 5 DAYS 11/16/16 22:52 Blood Culture - Final Blood NO GROWTH IN 5 DAYS Impressions: Chest X-Ray 11/16/16 21:30 IMPRESSION: COPD. NO ACUTE RADIOGRAPHIC FINDING IN THE CHEST OR SIGNIFICANT CHANGE FROM PRIOR STUDY. Transfer Plan - Disposition Transfer Plan: Transferred to pulmonary rehabilitation - Time Spent with Patient Time spent with patient: Greater than 30 Minutes
[2016-11-26] MEDS ORDERED: APIXABAN 5 MG TABLET PO SCH (10:45)
[2016-11-26] MEDS: ENOXAPARIN SODIUM INJ 40 MG/0.4 ML DISP.SYRIN SUBCUT SCH (10:59)
[2016-11-26] MEDS: ASPIRIN 81 MG TABLET, ENT COATED PO SCH (11:00)
[2016-11-26] MEDS: CEFPODOXIME 200 MG TABLET PO SCH ×2 (11:00→21:45)
[2016-11-26] MEDS: NITROGLYCERIN 10 MG (0.4 MG/HR) PATCH.TD24 TD SCH (11:00)
[2016-11-26] MEDS: PREDNISONE 20 MG TABLET PO SCH (11:01)
[2016-11-26] MEDS: CYANOCOBALAMIN (VITAMIN B-12) 1,000 MCG TABLET PO SCH (11:01)
[2016-11-26] MEDS: POTASSIUM CHLORIDE 10 MEQ TABLET.SA PO SCH (11:01)
[2016-11-26] MEDS: METOPROLOL TARTRATE 25 MG TABLET PO SCH ×2 (11:02→21:45)
[2016-11-26] MEDS: LIDOCAINE 5% (700 MG) TRANSDERMAL ADH..PATCH TP SCH (11:02)
[2016-11-26] MEDS: TORSEMIDE 20 MG TABLET PO SCH (11:02)
[2016-11-26] MEDS: RANOLAZINE 500 MG TAB.SR.12H PO SCH ×2 (11:02→21:47)
[2016-11-26] MEDS: LOSARTAN POTASSIUM 25 MG TABLET PO SCH (11:02)
--- NOTE | 2016-11-26 11:20 | PDOC PROGRESS REPORT ---
Subjective Progress Note for:: 11/26/16 Subjective:: Improving Physical Exam Vital Signs: Temp Pulse Resp BP Pulse Ox 97.1 F 55 L 19 115/37 L 98 11/26/16 07:32 11/26/16 07:59 11/26/16 07:59 11/26/16 07:32 11/26/16 07:32 Intake & Output 11/25/16 11/26/16 11/27/16 06:59 06:59 06:59 Intake Total 1832 2035 Output Total 3100 2800 Balance -1268 -765 Weight 74 kg 74 kg General appearance: PRESENT: no acute distress, disheveled, obese, well- developed Head exam: PRESENT: atraumatic, normocephalic Eye exam: PRESENT: conjunctiva pale, EOMI Mouth exam: PRESENT: moist Neck exam: ABSENT: carotid bruit, JVD, lymphadenopathy, thyromegaly Respiratory exam: PRESENT: decreased breath sounds, prolonged expiratory phas, rhonchi, symmetrical, wheezes, other - Breath sounds show increased air movement over the last 24 hours Cardiovascular exam: PRESENT: RRR, +S1, +S2 Pulses: PRESENT: normal radial pulses GI/Abdominal exam: PRESENT: normal bowel sounds, soft. ABSENT: distended, guarding, mass, organolmegaly, rebound, tenderness Rectal exam: PRESENT: deferred Musculoskeletal exam: PRESENT: normal inspection Neurological exam: PRESENT: awake Skin exam: PRESENT: dry, warm Results Laboratory Results: 11/21/16 06:05 11/22/16 09:10 11/22/16 11/22/16 09:10 13:10 Creatine Kinase < 20 L Troponin I < 0.012 Impressions: Chest X-Ray 11/16/16 21:30 IMPRESSION: COPD. NO ACUTE RADIOGRAPHIC FINDING IN THE CHEST OR SIGNIFICANT CHANGE FROM PRIOR STUDY. Assessment & Plan - Diagnosis (1) Acute and chronic respiratory failure with hypercapnia Is this a current diagnosis for this admission?: YesPlan: Patient with multiple admissions in the past as well as multiple intubations PCO2 retainer suggest being discharged on trilogy ventilator as BiPAP has proven insufficient to maintain adequate ventilation at home (2) Acute and chronic respiratory failure with hypoxia Is this a current diagnosis for this admission?: YesPlan: Patient with multiple admissions in the past as well as multiple intubations PCO2 retainer suggest being discharged on trilogy ventilator as BiPAP has proven insufficient to maintain adequate ventilation at home (3) Obstructive sleep apnea Is this a current diagnosis for this admission?: Yes (4) Restless leg syndrome Is this a current diagnosis for this admission?: Yes (5) Tobacco dependency Is this a current diagnosis for this admission?: Yes
[2016-11-26] MEDS ORDERED: APIXABAN 5 MG TABLET PO ONE (12:00)
--- NOTE | 2016-11-26 16:25 | Progress Note ---
Provider Note Provider Note: addendum 11/26/2016 Ceftin can be substituted to vantin Antibiotics prescribed until 10/30 : Ceftin 500 mg twice a day Zithromax 500 mg daily Pending results of CTA (CT Angiogram Chest ) patient was prescribed eliquis 5 mg po bid Eliquis may be discontinued if CTA is negative for pulmonary emboli Justyna Engle M.D.
[2016-11-26] MEDS: ROPINIROLE HCL 2 MG TABLET PO SCH (21:45)
[2016-11-26] MEDS: AZITHROMYCIN 250 MG TABLET PO SCH (21:46)
[2016-11-26] MEDS: ATORVASTATIN CALCIUM 40 MG TABLET PO SCH (21:46)
[2016-11-26] MEDS: INSULIN LISPRO 100 UNIT/ML 3 ML VIAL SUBCUT PRN (21:47)
[2016-11-26] MEDS: INSULIN GLARGINE,HUM.REC.ANLOG 300 UNIT/3 ML INSULN.PEN SUBCUT SCH (21:47)
[2016-11-26] MEDS: APIXABAN 5 MG TABLET PO SCH (21:47)
[2016-11-26] MEDS: PHARMACY COMMUNICATION ORDER MC SCH (22:30)
[2016-11-27] MEDS: LANSOPRAZOLE 30 MG TAB.RAP.DR PO SCH ×2 (05:08→17:18)
[2016-11-27] MEDS: PREGABALIN 50 MG CAPSULE PO SCH ×3 (05:08→21:48)
[2016-11-27] MEDS: CYANOCOBALAMIN (VITAMIN B-12) 1,000 MCG TABLET PO SCH (08:12)
[2016-11-27] MEDS: IPRATROPIUM/ALBUTEROL 0.5-2.5 MG/3 ML AMPUL NEB SCH ×3 (08:13→20:20)
[2016-11-27] MEDS: BUDESONIDE NEB 0.5 MG/2 ML AMPUL NEB SCH ×2 (08:14→20:20)
[2016-11-27] MEDS: ENOXAPARIN SODIUM INJ 40 MG/0.4 ML DISP.SYRIN SUBCUT SCH (08:14)
[2016-11-27] MEDS: LOSARTAN POTASSIUM 25 MG TABLET PO SCH (10:13)
[2016-11-27] MEDS: POTASSIUM CHLORIDE 10 MEQ TABLET.SA PO SCH (10:13)
[2016-11-27] MEDS: ASPIRIN 81 MG TABLET, ENT COATED PO SCH (10:13)
[2016-11-27] MEDS: METOPROLOL TARTRATE 25 MG TABLET PO SCH ×2 (10:14→21:49)
[2016-11-27] MEDS: TORSEMIDE 20 MG TABLET PO SCH (10:14)
[2016-11-27] MEDS: CEFPODOXIME 200 MG TABLET PO SCH ×2 (10:14→21:48)
[2016-11-27] MEDS: RANOLAZINE 500 MG TAB.SR.12H PO SCH ×2 (10:14→21:49)
[2016-11-27] MEDS: PREDNISONE 20 MG TABLET PO SCH (10:14)
[2016-11-27] MEDS: LIDOCAINE 5% (700 MG) TRANSDERMAL ADH..PATCH TP SCH (10:15)
[2016-11-27] MEDS: APIXABAN 5 MG TABLET PO SCH (10:15)
[2016-11-27] MEDS: NITROGLYCERIN 10 MG (0.4 MG/HR) PATCH.TD24 TD SCH (10:37)
--- NOTE | 2016-11-27 14:48 | PDOC PROGRESS REPORT ---
Subjective Progress Note for:: 11/27/16 Subjective:: Reason for follow-up visit: acute on chronic hypoxic respiratory failure, COPD exacerbation Hospital course: Patient's condition has taken a very slow, arduous course but is showing improvement. In fact, she was accepted at [facility] for pulmonary rehabilitation. They requested CT angiography of the chest prior to transfer which has delayed her departure. 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 Patient remains currently stable for transfer to [facility] for ongoing care. ROS: She denies chest pain, fever, chills, palpitations. She notes persistent easy fatigability, dyspnea with minimal exertion. She reports resolution of cough; remaining total of 10 systems reviewed, pertinent positives and negatives noted above, remaining systems negative. Physical Exam Vital Signs: Temp Pulse Resp BP Pulse Ox 98.3 F 69 19 118/38 L 97 11/27/16 11:53 11/27/16 13:57 11/27/16 13:57 11/27/16 11:53 11/27/16 11:53 Intake & Output 11/26/16 11/27/16 11/28/16 06:59 06:59 06:59 Intake Total 2035 2238 591 Output Total 2800 2000 3 Balance -765 238 588 Weight 74 kg 75.7 kg EXAM GENERAL: NAD; well developed, well nourished; mild obese; alert and oriented to person, place, time, situation HEENT: normocephalic, atraumatic; no conjunctival injection, no scleral icterus ; oral mucosa moist; RESPIRATORY: no accessory muscle use, no increased WOB, good air entry bilaterally; diffuse rhonchi; bilateral inspiratory crackles; supplemental O2 via nasal cannula CARDIO: no JVD; RRR; no systolic murmur; no tachycardia GI: soft; nondistended; normal bowel sounds; no rebound, rigidity, guarding; nontender VASCULAR: no pallor; 2+ radial, DP pulse; diminished capillary refill EXTREMITIES: no calf tender; no palpable cords in calf; no pedal edema PSYCH: normal affect, normal mood SKIN: warm; moist; no petechiae; no telengectasias; no jaundice; no rash Results Impressions: Chest/Abdomen CTA 11/27/16 00:00 IMPRESSION: No acute changes. No acute thoracic aortic dissection. No acute pulmonary emboli. Assessment & Plan - Diagnosis (1) Acute and chronic respiratory failure with hypoxia Is this a current diagnosis for this admission?: YesPlan: Improved but not back to baseline, agree with transfer to LTAC for ongoing pulmonary rehabilitation. Integument intermittent BiPAP therapy as needed. Continue supplemental O2 as needed. Continue nebulizer therapy. (2) Acute and chronic respiratory failure with hypercapnia Is this a current diagnosis for this admission?: Yes (3) COPD exacerbation Is this a current diagnosis for this admission?: Yes (4) Type 1 diabetes mellitus Qualifiers: Diabetes mellitus complication status: with unspecified complications Qualified Code(s): E10.8 - Type 1 diabetes mellitus with unspecified complications Is this a current diagnosis for this admission?: Yes (5) Obstructive sleep apnea Is this a current diagnosis for this admission?: Yes (6) Tobacco dependency Is this a current diagnosis for this admission?: Yes - Time Time Spent with patient: 25-34 minutes Medications reviewed and adjusted accordingly: Yes Anticipated discharge: [facility] - [facility] - Plan Summary Plan Summary: Stable for transfer. Awaiting bed availability.
[2016-11-27] MEDS: INSULIN LISPRO 100 UNIT/ML 3 ML VIAL SUBCUT PRN ×2 (17:48→22:45)
[2016-11-27] MEDS: ATORVASTATIN CALCIUM 40 MG TABLET PO SCH (21:48)
[2016-11-27] MEDS: ROPINIROLE HCL 2 MG TABLET PO SCH (21:48)
[2016-11-27] MEDS: AZITHROMYCIN 250 MG TABLET PO SCH (21:49)
[2016-11-27] MEDS: PHARMACY COMMUNICATION ORDER MC SCH (22:00)
[2016-11-27] MEDS: INSULIN GLARGINE,HUM.REC.ANLOG 300 UNIT/3 ML INSULN.PEN SUBCUT SCH (22:43)
[2016-11-28] MEDS: ALBUTEROL SULFATE 0.083% NEB 2.5 MG/3 ML AMPUL NEB PRN (00:48)
[2016-11-28] MEDS: LANSOPRAZOLE 30 MG TAB.RAP.DR PO SCH (05:40)
[2016-11-28] MEDS: PREGABALIN 50 MG CAPSULE PO SCH (05:40)
[2016-11-28] MEDS: ENOXAPARIN SODIUM INJ 40 MG/0.4 ML DISP.SYRIN SUBCUT SCH (08:02)
[2016-11-28] MEDS: CYANOCOBALAMIN (VITAMIN B-12) 1,000 MCG TABLET PO SCH (08:02)
[2016-11-28] MEDS: BUDESONIDE NEB 0.5 MG/2 ML AMPUL NEB SCH (08:19)
[2016-11-28] MEDS: IPRATROPIUM/ALBUTEROL 0.5-2.5 MG/3 ML AMPUL NEB SCH (08:19)
[2016-11-28] MEDS: RANOLAZINE 500 MG TAB.SR.12H PO SCH (09:41)
[2016-11-28] MEDS: NITROGLYCERIN 10 MG (0.4 MG/HR) PATCH.TD24 TD SCH (09:41)
[2016-11-28] MEDS: ASPIRIN 81 MG TABLET, ENT COATED PO SCH (09:42)
[2016-11-28] MEDS: TORSEMIDE 20 MG TABLET PO SCH (09:42)
[2016-11-28] MEDS: LOSARTAN POTASSIUM 25 MG TABLET PO SCH (09:42)
[2016-11-28] MEDS: PREDNISONE 20 MG TABLET PO SCH (09:42)
[2016-11-28] MEDS: POTASSIUM CHLORIDE 10 MEQ TABLET.SA PO SCH (09:42)
[2016-11-28] MEDS: CEFPODOXIME 200 MG TABLET PO SCH (09:49)
[2016-11-28] MEDS: LIDOCAINE 5% (700 MG) TRANSDERMAL ADH..PATCH TP SCH (09:50)
[2016-11-28] MEDS: METOPROLOL TARTRATE 25 MG TABLET PO SCH (09:50)
[2016-11-28 12:28] VITALS: BP 127/51
--- NOTE | 2016-11-28 13:11 | PDOC PROGRESS REPORT ---
Subjective Progress Note for:: 11/28/16 Subjective:: Patient underwent CT angiography and found no evidence of pulmonary emboli and no acute pulmonary disease. She remains stable for discharge at this time. Physical Exam Vital Signs: Temp Pulse Resp BP Pulse Ox 97.8 F 67 16 127/51 H 94 11/28/16 11:49 11/28/16 11:49 11/28/16 11:49 11/28/16 11:49 11/28/16 11:49 Intake & Output 11/27/16 11/28/16 11/29/16 06:59 06:59 06:59 Intake Total 2238 1535 Output Total 19993 Balance 238 -1068 Weight 75.7 kg 73.9 kg EXAM GENERAL: NAD; well developed, well nourished; mild obese; alert and oriented to person, place, time, situation HEENT: normocephalic, atraumatic; no conjunctival injection, no scleral icterus ; oral mucosa moist; RESPIRATORY: no accessory muscle use, no increased WOB, good air entry bilaterally; mild diffuse rhonchi; bilateral inspiratory crackles; supplemental O2 via nasal cannula CARDIO: no JVD; RRR; no systolic murmur; no tachycardia GI: soft; nondistended; normal bowel sounds; no rebound, rigidity, guarding; nontender VASCULAR: no pallor; 2+ radial, DP pulse; diminished capillary refill EXTREMITIES: no calf tender; no palpable cords in calf; no pedal edema PSYCH: normal affect, normal mood SKIN: warm; moist; no petechiae; no telengectasias; no jaundice; no rash Results Laboratory Results: 11/21/16 06:05 11/22/16 09:10 11/22/16 11/22/16 09:10 13:10 Creatine Kinase < 20 L Troponin I < 0.012 Impressions: Chest X-Ray 11/16/16 21:30 IMPRESSION: COPD. NO ACUTE RADIOGRAPHIC FINDING IN THE CHEST OR SIGNIFICANT CHANGE FROM PRIOR STUDY. Modified Barium Swallow 11/19/16 00:00 IMPRESSION: NO EVIDENCE OF PENETRATION OR ASPIRATION. PLEASE REFER TO THE SPEECH PATHOLOGY REPORT FOR FURTHER DETAILS AND RECOMMENDATIONS. Chest/Abdomen CTA 11/27/16 00:00 IMPRESSION: No acute changes. No acute thoracic aortic dissection. No acute pulmonary emboli. Assessment & Plan - Diagnosis (1) Acute and chronic respiratory failure with hypoxia Is this a current diagnosis for this admission?: YesPlan: Improved but not back to baseline, agree with transfer to LTAC for ongoing pulmonary rehabilitation. Integument intermittent BiPAP therapy as needed. Continue supplemental O2 as needed. Continue nebulizer therapy. (2) Acute and chronic respiratory failure with hypercapnia Is this a current diagnosis for this admission?: Yes (3) COPD exacerbation Is this a current diagnosis for this admission?: Yes (4) Type 1 diabetes mellitus Qualifiers: Diabetes mellitus complication status: with unspecified complications Qualified Code(s): E10.8 - Type 1 diabetes mellitus with unspecified complications Is this a current diagnosis for this admission?: Yes (5) Obstructive sleep apnea Is this a current diagnosis for this admission?: Yes (6) Tobacco dependency Is this a current diagnosis for this admission?: Yes - Time Time Spent with patient: 15-24 minutes Anticipated discharge: Other - LTAC - Plan Summary Plan Summary: Stable for transfer for inpatient pulmonary rehabilitation.
--- NOTE | 2016-11-28 17:19 | PDOC PROGRESS REPORT ---
Subjective Progress Note for:: 11/27/16 Subjective:: Improving Physical Exam Vital Signs: Temp Pulse Resp BP Pulse Ox 97.8 F 67 16 127/51 H 94 11/28/16 11:49 11/28/16 11:49 11/28/16 11:49 11/28/16 11:49 11/28/16 11:49 Intake & Output 11/27/16 11/28/16 11/29/16 06:59 06:59 06:59 Intake Total 2238 1535 Output Total 1999 2602 Balance 238 -1068 Weight 75.7 kg 73.9 kg General appearance: PRESENT: no acute distress, cooperative, disheveled, obese Head exam: PRESENT: atraumatic, normocephalic Eye exam: PRESENT: conjunctiva pale Mouth exam: PRESENT: moist, neck supple Neck exam: ABSENT: carotid bruit, JVD, lymphadenopathy, thyromegaly Respiratory exam: PRESENT: decreased breath sounds, prolonged expiratory phas, rhonchi, symmetrical, unlabored, wheezes Cardiovascular exam: PRESENT: RRR, +S1, +S2 Pulses: PRESENT: normal radial pulses GI/Abdominal exam: PRESENT: normal bowel sounds, soft. ABSENT: distended, guarding, mass, organolmegaly, rebound, tenderness Rectal exam: PRESENT: deferred Musculoskeletal exam: PRESENT: normal inspection Neurological exam: PRESENT: awake Skin exam: PRESENT: dry, warm Results Laboratory Results: 11/21/16 06:05 11/22/16 09:10 11/22/16 11/22/16 09:10 13:10 Creatine Kinase < 20 L Troponin I < 0.012 Impressions: Chest X-Ray 11/16/16 21:30 IMPRESSION: COPD. NO ACUTE RADIOGRAPHIC FINDING IN THE CHEST OR SIGNIFICANT CHANGE FROM PRIOR STUDY. Modified Barium Swallow 11/19/16 00:00 IMPRESSION: NO EVIDENCE OF PENETRATION OR ASPIRATION. PLEASE REFER TO THE SPEECH PATHOLOGY REPORT FOR FURTHER DETAILS AND RECOMMENDATIONS. Chest/Abdomen CTA 11/27/16 00:00 IMPRESSION: No acute changes. No acute thoracic aortic dissection. No acute pulmonary emboli. Assessment & Plan - Diagnosis (1) Acute and chronic respiratory failure with hypercapnia Is this a current diagnosis for this admission?: Yes (2) Acute and chronic respiratory failure with hypoxia Is this a current diagnosis for this admission?: Yes (3) Obstructive sleep apnea Is this a current diagnosis for this admission?: Yes (4) Restless leg syndrome Is this a current diagnosis for this admission?: Yes (5) Tobacco dependency Is this a current diagnosis for this admission?: Yes
--- NOTE | 2016-11-28 17:21 | PDOC PROGRESS REPORT ---
Subjective Progress Note for:: 11/27/16 Subjective:: Improving Physical Exam Vital Signs: Temp Pulse Resp BP Pulse Ox 97.8 F 67 16 127/51 H 94 11/28/16 11:49 11/28/16 11:49 11/28/16 11:49 11/28/16 11:49 11/28/16 11:49 Intake & Output 11/27/16 11/28/16 11/29/16 06:59 06:59 06:59 Intake Total 2238 1535 Output Total 1999 2602 Balance 238 -1068 Weight 75.7 kg 73.9 kg General appearance: PRESENT: no acute distress, cooperative, disheveled, obese Head exam: PRESENT: atraumatic, normocephalic Eye exam: PRESENT: conjunctiva pale, EOMI Mouth exam: PRESENT: moist, neck supple Neck exam: ABSENT: carotid bruit, JVD, lymphadenopathy, thyromegaly Respiratory exam: PRESENT: decreased breath sounds, prolonged expiratory phas, symmetrical, unlabored Cardiovascular exam: PRESENT: RRR, +S1, +S2 Pulses: PRESENT: normal radial pulses GI/Abdominal exam: PRESENT: ascites Rectal exam: PRESENT: deferred Musculoskeletal exam: PRESENT: normal inspection Neurological exam: PRESENT: alert, awake Psychiatric exam: PRESENT: normal mood Skin exam: PRESENT: dry, warm Results Laboratory Results: 11/21/16 06:05 11/22/16 09:10 11/22/16 11/22/16 09:10 13:10 Creatine Kinase < 20 L Troponin I < 0.012 Impressions: Chest X-Ray 11/16/16 21:30 IMPRESSION: COPD. NO ACUTE RADIOGRAPHIC FINDING IN THE CHEST OR SIGNIFICANT CHANGE FROM PRIOR STUDY. Modified Barium Swallow 11/19/16 00:00 IMPRESSION: NO EVIDENCE OF PENETRATION OR ASPIRATION. PLEASE REFER TO THE SPEECH PATHOLOGY REPORT FOR FURTHER DETAILS AND RECOMMENDATIONS. Chest/Abdomen CTA 11/27/16 00:00 IMPRESSION: No acute changes. No acute thoracic aortic dissection. No acute pulmonary emboli. Assessment & Plan - Diagnosis (1) Acute and chronic respiratory failure with hypercapnia Is this a current diagnosis for this admission?: Yes (2) Acute and chronic respiratory failure with hypoxia Is this a current diagnosis for this admission?: Yes (3) Obstructive sleep apnea Is this a current diagnosis for this admission?: Yes (4) Restless leg syndrome Is this a current diagnosis for this admission?: Yes (5) Tobacco dependency Is this a current diagnosis for this admission?: Yes
== END 2016-11-28 13:26 | DRG 189 ==
LOC: ER 21:20 → UNDOADMIN 11-17 01:40 → EH 11-17 01:40 → 3W 11-17 06:37
PROVIDERS: ADMIT Family Medicine; ATTEND Family Medicine
PROC: 5A09457 Assistance with Respiratory Ventilation, 24-96 Consecutive Hours, Continuous Positive Airway Pressure (ICD-10-PCS; principal; 2016-11-17)
DX: J96.22 Acute and chronic respiratory failure with hypercapnia (principal); J44.1 Chronic obstructive pulmonary disease with (acute) exacerbation; J96.21 Acute and chronic respiratory failure with hypoxia; Z99.81 Dependence on supplemental oxygen; I49.9 Cardiac arrhythmia, unspecified; I27.2 Other secondary pulmonary hypertension; E10.9 Type 1 diabetes mellitus without complications; Z86.14 Personal history of Methicillin resistant Staphylococcus aureus infection; K21.9 Gastro-esophageal reflux disease without esophagitis; D64.9 Anemia, unspecified; G25.81 Restless legs syndrome; E78.5 Hyperlipidemia, unspecified; G47.33 Obstructive sleep apnea (adult) (pediatric); F41.9 Anxiety disorder, unspecified; F32.9 Major depressive disorder, single episode, unspecified; Z79.4 Long term (current) use of insulin; Z79.82 Long term (current) use of aspirin; Z79.899 Other long term (current) drug therapy; F17.210 Nicotine dependence, cigarettes, uncomplicated; Z95.1 Presence of aortocoronary bypass graft; Z88.1 Allergy status to other antibiotic agents; Z88.8 Allergy status to other drugs, medicaments and biological substances; Z90.49 Acquired absence of other specified parts of digestive tract; Z90.710 Acquired absence of both cervix and uterus
CPT/HCPCS: 36415; 36600; 71020; 71275; 74230; 80048; 80053; 80198; 81001; 82550; 82553; 82803; 82962; 83735; 84484; 85025; 87040; 87070; 87205; 87804; 90686; 93005; 93010; 93306; 94640; 94660; 96374; 99291; G8996-GN; G8997-GN; G8998-GN; J0456; J0692; J1650; J1815; J2920; J2930; J3475; J3480; J3490; J7060; J7512; J7620

== ENCOUNTER 2017-04-28 10:03 | Inpatient (IN) | payer MEDICARE, MEDICAID ==
[2017-04-28] MEDS ORDERED: IPRATROPIUM/ALBUTEROL 0.5-2.5 MG/3 ML AMPUL NEB ONE (10:13)
--- NOTE | 2017-04-28 10:23 | ER Document Report ---
ED Respiratory Problem - General Chief Complaint: Shortness Of Breath Stated Complaint: DIFFICULTY BREATHING Time Seen by Provider: 04/28/17 10:09 Notes: The patient is a 72-year-old female, past medical history CHF, COPD, CAD, hypertension, diabetes, hyperlipidemia, presents from [facility] with shortness of breath and dyspnea on exertion since this morning. She is also having orthopnea and noticing more peripheral edema over the past day. When EMS arrived, her oxygen was 80% on her home CPAP machine that she wears at night. She was placed on CPAP and given a DuoNeb by EMS with improvement of her oxygen to 87%. Patient had similar symptoms last week and was admitted to [facility]. Patient denies cough, hemoptysis, chest pain, abdominal pain, nausea, vomiting, fevers, rash or headache. TRAVEL OUTSIDE OF THE [place] IN LAST 30 DAYS: No - Related Data Allergies/Adverse Reactions: vancomycin Allergy (Verified 07/29/16 11:57) Generalized Itching levofloxacin Adverse Reaction (Verified 07/29/16 14:06) Diarrhea linezolid [From Zyvox] Adverse Reaction (Verified 07/29/16 14:06) Diarrhea Home Medications: Current Home Medications Albuterol Sulfate [Proair Hfa Inhalation Aerosol 8.5 gm Mdi] 2 puff IH Q6HP PRN 04/28/17 [History] Past Medical History - General Information source: Patient, Emergency Med Personnel - Social History Smoking Status: Current Every Day Smoker Family History: CAD, DM, Hypertension - Past Medical History Cardiac Medical History: Reports: Hx Coronary Artery Disease - CABG, Hx Hypercholesterolemia - zocor , Hx Hypertension Denies: Hx Atrial Fibrillation, Hx Congestive Heart Failure - No evidence of diastolic or systolic dysfunction on November 21, 2016 echo, Hx DVT, Hx Heart Attack, Hx Peripheral Vascular Disease, Hx Pulmonary Embolism, Hx Heart Murmur Pulmonary Medical History: Reports: Hx Asthma, Hx COPD, Hx Pneumonia - MRSA 2014 , Hx Sleep Apnea - bipap , Hx Tuberculosis - +PPD in s - on meds x 1 year Denies: Hx Bronchitis, Hx Respiratory Failure Neurological Medical History: Denies: Hx Cerebrovascular Accident, Hx Seizures Endocrine Medical History: Reports: Hx Diabetes Mellitus Type 1, Hx Diabetes Mellitus Type 2. Denies: Hx Graves' Disease, Hx Hyperthyroidism, Hx Hypothyroidism Renal/ Medical History: Denies: Hx End Stage Renal Disease, Hx Kidney Stones, Hx Ovarian Cysts, Hx Peritoneal Dialysis, Hx Pelvic Inflammatory Disease Malignancy Medical History: Denies: Hx Breast Cancer, Hx Cervical Cancer, Hx Leukemia, Hx Lung Cancer, Hx Ovarian Cancer GI Medical History: Reports: Hx Gastroesophageal Reflux Disease. Denies: Hx Cirrhosis, Hx Crohn's Disease, Hx Hepatitis, Hx Hiatal Hernia, Hx Irritable Bowel, Hx Liver Failure, Hx Ulcer Musculoskeltal Medical History: Reports Hx Arthritis, Denies Hx Fibromyalgia, Denies Hx Muscular Dystrophy Skin Medical History: Denies Hx Eczema, Denies Hx Psoriasis Psychiatric Medical History: Reports: Hx Anxiety, Hx Depression Denies: Hx Bipolar Disorder, Hx Post Traumatic Stress Disorder, Hx Schizophrenia Traumatic Medical History: Reports: Hx Fractures - lumbar Infectious Medical History: Reports: Hx MRSA - Reported MRSA pneumonia, 2014. Denies: Hx C-Diff, Hx Hepatitis, Hx HIV Past Surgical History: Reports: Hx Appendectomy, Hx Cardiac Surgery - CABGx2, Hx Cholecystectomy, Hx Coronary Artery Bypass Graft - 2009 x 2 grafts , Hx Hysterectomy, Hx Open Heart Surgery - 3v, Hx Orthopedic Surgery - Left footsurgery, cyst removal from left hand, Hx Tonsillectomy. Denies: Hx Bowel Surgery, Hx Section, Hx Colostomy, Hx Gastric Bypass Surgery, Hx Herniorrhaphy, Hx Mastectomy, Hx Pacemaker, Hx Tubal Ligation - Immunizations Hx Diphtheria, Pertussis, Tetanus Vaccination: Yes Hx Pneumococcal Vaccination: 08/26/12 Review of Systems - Review of Systems Notes: REVIEW OF SYSTEMS: CONSTITUTIONAL: -fevers, -chills EENT: -eye pain, -difficulty swallowing, -nasal congestion CARDIOVASCULAR:-chest pain, -syncope. RESPIRATORY: -cough, +SOB GASTROINTESTINAL: -abdominal pain, - nausea, -vomiting, -diarrhea GENITOURINARY: -dysuria, -hematuria MUSCULOSKELETAL: -back pain, -neck pain SKIN: -rash or skin lesions. HEMATOLOGIC: -easy bruising or bleeding. LYMPHATIC: -swollen, enlarged glands. NEUROLOGICAL: -altered mental status or loss of consciousness, -headache, - neurologic symptoms PSYCHIATRIC: -anxiety, -depression. ALL OTHER SYSTEMS REVIEWED AND NEGATIVE. Physical Exam - Vital signs Vitals: Temp Resp BP Pulse Ox 97.7 F 26 H 140/77 H 87 L 04/28/17 10:04/28/17 10:04/28/17 10:05 04/28/17 10:05 - Notes Notes: PHYSICAL EXAMINATION: GENERAL: In mild respiratory distress. HEAD: Atraumatic, normocephalic. EYES: Pupils equal round and reactive to light, extraocular movements intact, sclera anicteric, conjunctiva are normal. ENT: nares patent, oropharynx clear without exudates. Moist mucous membranes. NECK: Normal range of motion, supple without lymphadenopathy LUNGS: Mild tachypnea, diffuse rhonchi and wheezes HEART: Regular rhythm, tachycardia ABDOMEN: Soft, nontender, normoactive bowel sounds. No guarding, no rebound. No masses appreciated. EXTREMITIES: Normal range of motion. 1+ pitting edema around B/L ankles. NEUROLOGICAL: Cranial nerves grossly intact. Normal speech, normal gait. Normal sensory and motor exams. PSYCH: Normal mood, normal affect. SKIN: Warm, Dry, normal turgor, no rashes or lesions noted. Course - Re-evaluation Re-evalutation: Patient arrives tachypneic and hypoxic on her CPAP machine down to 80%. She was seen immediately on arrival to the emergency room and switched to BiPAP with improvement of her oxygenation and respiratory status. After DuoNebs and steroids, patient feels much better and her wheezing has improved. Her chest x- ray does not show any acute changes, patient does not have a fever and lactate is normal. Leukocytosis is most likely from her chronic steroid use and a stress response. No evidence of pneumonia or infection at this time. EKG does not show any ischemic changes, patient does not have chest pain and first troponin is negative. Chest x-ray does not show any evidence of pulmonary edema. Low to moderate suspicion for PE, so D-dimer was sent due to recent hospitalization and hypoxia. D-dimer is below 0.5, so PE is ruled-out. Patient has slight hypoglycemia and she was fed juice while in the ER. Patient requires inpatient admission for further evaluation of her hypoxia and most likely COPD exacerbation. Her PMD is Dr. Hamilton. 04/28/17 12:[address] Rosario and will admit patient as Inpatient to [facility]. - Vital Signs Vital signs: Temp Pulse Resp BP Pulse Ox 98.4 F 86 23 H 119/43 L 90 L 04/28/17 13:50 04/28/17 13:50 04/28/17 14:05 04/28/17 13:50 04/28/17 14:18 - Laboratory Result Diagrams: 04/28/17 10:24 04/28/17 10:24 Laboratory results interpreted by me: 04/28/17 04/28/17 04/28/17 10:24 10:24 10:24 WBC 18.1 H Hgb 8.5 L Hct 29.1 L MCV 68 L MCH 19.9 L MCHC 29.2 L RDW 19.9 H Seg Neutrophils % 82.0 H Lymphocytes % 11.2 L Absolute Neutrophils 14.8 H Sodium 146.5 H Chloride 108 H Carbon Dioxide 32 H BUN 27 H Glucose 63 L POC Glucose Creatine Kinase < 20 L NT-Pro-B Natriuret Pep 1760 H Total Protein 6.1 L 04/28/17 12:21 WBC Hgb Hct MCV MCH MCHC RDW Seg Neutrophils % Lymphocytes % Absolute Neutrophils Sodium Chloride Carbon Dioxide BUN Glucose POC Glucose 126 H Creatine Kinase NT-Pro-B Natriuret Pep Total Protein - Diagnostic Test Radiology reviewed: Image reviewed, Reports reviewed Radiology results interpreted by me: CXR: NAD - EKG Interpretation by Me EKG shows normal: Sinus rhythm, [place], Intervals, QRS Complexes, ST-T Waves Rate: Normal Critical Care Note - Critical Care Note Total time excluding time spent on procedures (mins): 45 Discharge - Discharge Clinical Impression: Acute respiratory failure with hypoxia, COPD with exacerbation, Hypoglycemia Condition: Serious Disposition: ADMITTED INPATIENT Admitting Provider: Hospitalist - [facility] Admitted: [facility]
[2017-04-28 11:01] LABS: ABSOLUTE BASOPHILS # (AUTO) 0.1 10^3/uL (0.0-0.2); ABSOLUTE EOSINOPHILS # (AUTO) 0.1 10^3/uL (0.0-0.6); ABSOLUTE NEUT (AUTO) 14.8 10^3/uL (1.7-8.2); BASOPHILS % (AUTO) 0.8 % (0-2); EOSINOPHILS % (AUTO) 0.7 % (0-6); HEMATOCRIT 29.1 % (36.0-47.0); HEMOGLOBIN 8.5 g/dL (12.0-15.5); HGB HCT DIFFERENCE -3.6; LYMPHOCYTES % (AUTO) 11.2 % (13-45); MEAN CORPUSCULAR HEMOGLOBIN 19.9 pg (27.0-33.4); MEAN CORPUSCULAR HGB CONC 29.2 g/dL (32.0-36.0); MEAN CORPUSCULAR VOLUME 68 fl (80-97); MONOCYTES % (AUTO) 5.3 % (3-13); RED BLOOD COUNT 4.27 10^6/uL (3.72-5.28); RED CELL DISTRIBUTION WIDTH 19.9 % (11.5-14.0); WHITE BLOOD COUNT 18.1 10^3/uL (4.0-10.5)
[2017-04-28 11:18] LABS: ALANINE AMINOTRANSFERASE 30 U/L (9-52); ALBUMIN 3.7 g/dL (3.5-5.0); ALKALINE PHOSPHATASE 51 U/L (38-126); ANION GAP 7 (5-19); ASPARTATE AMINO TRANSFERASE 16 U/L (14-36); BILIRUBIN,DIRECT 0.3 mg/dL (0.0-0.4); BILIRUBIN,TOTAL 0.4 mg/dL (0.2-1.3); BLOOD UREA NITROGEN 27 mg/dL (7-20); CARBON DIOXIDE 32 mmol/L (22-30); CHLORIDE 108 mmol/L (98-107); CREATININE RESULT 0.66 mg/dL (0.52-1.25); GLUCOSE 63 mg/dL (75-110); POTASSIUM 4.2 mmol/L (3.6-5.0); SODIUM 146.5 mmol/L (137-145); TOTAL PROTEIN 6.1 g/dL (6.3-8.2)
[2017-04-28 11:26] LABS: CREATINE KINASE < 20 U/L (30-135)
[2017-04-28 11:31] LABS: TROPONIN I 0.023 ng/mL
--- NOTE | 2017-04-28 11:34 | EKG REPORT ---
SEVERITY:- NORMAL ECG - SINUS RHYTHM : Confirmed by: Osiris Rider 28-Apr-2017 11:34:23
--- NOTE | 2017-04-28 11:35 | RADIOLOGY REPORT (SQ) ---
EXAM DESCRIPTION: CHEST SINGLE VIEW COMPLETED DATE/TIME: 04/28/2017 10:43 am REASON FOR STUDY: SOB COMPARISON: 04/16/2017. NUMBER OF VIEWS: One view. TECHNIQUE: Single frontal radiographic view of the chest acquired. LIMITATIONS: None. FINDINGS: LUNGS AND PLEURA: No opacities, masses or pneumothorax. No pleural effusion. MEDIASTINUM AND HILAR STRUCTURES: Stable postoperative contours, status post CABG. HEART AND VASCULAR STRUCTURES: Heart normal in size. Normal vasculature. BONES: Osteopenic without gross fracture. HARDWARE: Right port, as before. Tip to the superior vena cava. OTHER: No other significant finding. IMPRESSION: NO SIGNIFICANT RADIOGRAPHIC FINDING IN THE CHEST. TECHNICAL DOCUMENTATION: JOB ID: [id number] [employer]- All Rights Reserved
[2017-04-28 11:42] LABS: VENOUS BLOOD HCO3 28.6 mmol/L (20-32); VENOUS BLOOD PCO2 55.9 mmHg (35-63); VENOUS BLOOD PH 7.33 (7.30-7.42)
[2017-04-28] MEDS ORDERED: METHYLPREDNISOLONE INJ 125 MG/2 ML SDV IV ONE (11:47)
[2017-04-28] MEDS ORDERED: LEVALBUTEROL HCL NEB 0.63 MG/3 ML AMPUL NEB PRN (13:27)
[2017-04-28] MEDS ORDERED: ACETAMINOPHEN 325 MG TABLET PO PRN (13:27)
[2017-04-28] MEDS ORDERED: ONDANSETRON 4 MG TAB.RAPDIS PO PRN (13:27)
[2017-04-28] MEDS ORDERED: ONDANSETRON HCL INJ/PF 4 MG/2 ML SDV IV PRN (13:27)
[2017-04-28] MEDS ORDERED: (PENDING PHARMACY ID) (Oxycodone Hcl/Acetaminophen [Oxycodone-Acetaminophen 10-325] 1 TAB) PO PRN (13:36)
[2017-04-28] MEDS ORDERED: (PENDING PHARMACY ID) (Melatonin [Melatonin] 3 MG) PO PRN (13:36)
[2017-04-28] MEDS ORDERED: GLUCAGON,HUMAN RECOMB 1 MG INJ IM PRN (13:39)
[2017-04-28] MEDS ORDERED: DEXTROSE 40% GEL 15 GM TUBE PO PRN ×2 (13:39)
[2017-04-28] MEDS ORDERED: DEXTROSE 50%-WATER 25 GM/50 ML DISP.SYRIN IV PRN ×2 (13:39)
--- NOTE | 2017-04-28 13:47 | RADIOLOGY REPORT (SQ) ---
EXAM DESCRIPTION: CT HEAD WITHOUT COMPLETED DATE/TIME: 04/28/2017 1:32 pm REASON FOR STUDY: anisocoria COMPARISON: 2015. TECHNIQUE: Axial images acquired through the brain without intravenous contrast. Images reviewed wi th bone, brain and subdural windows. Images stored on PACS. All CT scanners at this facility use dose modulation, iterative reconstruction, and/or weight based d osing when appropriate to reduce radiation dose to as low as reasonably achievable (ALARA). [facility]: Dose Right [facility]: CareDose [facility]: Dose Right [facility]: Teradose 4D [facility]: Smart Locu RADIATION DOSE: Up-to-date CT equipment and radiation dose reduction techniques were employed. CTDIv ol: 64.6 mGy. DLP: 1680 mGy-cm. mGy. LIMITATIONS: None. FINDINGS: VENTRICLES: Normal size and contour. CEREBRUM: No masses. No hemorrhage. No midline shift. No evidence for acute infarction. Normal gra y/white matter differentiation. No areas of low density in the white matter. CEREBELLUM: No masses. No hemorrhage. No alteration of density. No evidence for acute infarction. EXTRAAXIAL SPACES: No fluid collections. No masses. ORBITS AND GLOBE: No intra- or extraconal masses. Normal contour of globe without masses. CALVARIUM: No fracture. PARANASAL SINUSES: No fluid or mucosal thickening. SOFT TISSUES: No mass or hematoma. OTHER: No other significant finding. IMPRESSION: NORMAL BRAIN CT WITHOUT CONTRAST. COMMENT: Quality ID # [id number]: Final reports with documentation of one or more dose reduction techniques (e.g., Automated exposure control, adjustment of the mA and/or kV according to patient size, use of iterative reconstruction technique) TECHNICAL DOCUMENTATION: JOB ID: [id number]- All Rights Reserved
[2017-04-28] MEDS ORDERED: OLOPATADINE HCL 0.1% OPH SOLN 5 ML OU PRN (13:51)
[2017-04-28] MEDS ORDERED: OXYCODONE-ACETAMINOPHEN 5-325 MG TABLET PO PRN (13:54)
[2017-04-28] MEDS ORDERED: OXYCODONE HCL IR 5 MG TABLET PO PRN (13:55)
--- NOTE | 2017-04-28 14:04 | PDOC H&P ---
History of Present Illness Admission Date/PCP: 04/28/17 12:13 TYSON ROLDAN MD Patient complains of: Shortness of breath History of Present Illness: DAGO GRAFF is a 72 year old female with a history of COPD for which she is oxygen dependent at 3 L per day who was discharged on April 22 from this facility. She reports that she was initially doing well but 2 days ago began having worsening cough shortness of breath as well as wheezing. The patient reports that her cough has been nonproductive. She denies any fevers or chills. She denies any chest pain. She denies any orthopnea or PND but does relate she does have lower extremity edema. The patient does have a history of diastolic congestive heart failure. Patient has taken her medications as prescribed and has just completed a steroid taper. The patient denies any recent travel. She denies any fevers or chills. The patient also was noted to have anisocoria with a dilated left pupil but she is uncertain as if she has had this previously. She denies any focal weakness. Past Medical History Cardiac Medical History: Reports: Congestive Heart Failure - No evidence of diastolic or systolic dysfunction on November 21, 2016 echo, Coronary Artery Disease - CABG, Hyperlipidema - zocor , Hypertension Denies: Atrial Fibrillation, DVT, Myocardial Infarction, Peripheral Vascular Disease, Pulmonary Embolism, Heart Murmur Pulmonary Medical History: Reports: Asthma, Chronic Obstructive Pulmonary Disease (COPD), Pneumonia - MRSA 2014 , Sleep Apnea - bipap , Tuberculosis - + PPD in s - on meds x 1 year Denies: Bronchitis, Respiratory Failure EENT Medical History: Reports: None Neurological Medical History: Denies: Seizures Endocrine Medical History: Reports: Diabetes Mellitus Type 2 Denies: Hyperthyroidism, Hypothyroidism Renal/ Medical History: Denies: End Stage Renal Disease Malignancy Medical History: Reports: None GI Medical History: Reports: Gastroesophageal Reflux Disease Denies: Cirrhosis, Crohn's Disease, Hepatitis, Hiatal Hernia Musculoskeltal Medical History: Reports: Arthritis Denies: Fibromyalgia Skin Medical History: Denies: Eczema, Psoriasis Psychiatric Medical History: Reports: Depression Denies: Bipolar Disorder, Post Traumatic Stress Disorder Traumatic Medical History: Reports: None Hematology: Reports: Anemia - Chronic Denies: Hemophilia, Sickle Cell Disease Infectious Medical History: Reports: 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 MRSA pneumonia, 2014 Denies: Clostridium Difficile, HIV Past Surgical History Past Surgical History: Reports: Appendectomy, Cholecystectomy, Coronary Artery Bypass Graft - 2009 x 2 grafts , Hysterectomy, Orthopedic Surgery - Left footsurgery, cyst removal from left hand, Tonsillectomy Denies: Amputation, Section, Colostomy, Gastric Bypass Surgery, Herniorrhaphy, Mastectomy, Pacemaker, Tubal Ligation Social History Information Source: Patient Smoking Status: Former Smoker Frequency of Alcohol Use: None Hx Recreational Drug Use: No Drugs: None Hx Prescription Drug Abuse: No - Advance Directive Resuscitation Status: Full Code Family History Family History: CAD, DM, Hypertension Parental Family History Reviewed: Yes Children Family History Reviewed: No Sibling(s) Family History Reviewed.: No Medication/Allergy Home Medications: Aspirin [Aspirin EC] 81 mg PO DAILY 04/16/17 Atorvastatin Calcium [Lipitor 40 mg Tablet] 40 mg PO QHS 04/16/17 Cyanocobalamin (Vitamin B-12) [Vitamin B-12 500 mcg Tablet] 500 mcg PO QAM 04/16 Esomeprazole Mag Trihydrate [Nexium] 40 mg PO DAILY 04/16/17 Losartan Potassium [Cozaar 25 mg Tablet] 25 mg PO DAILY 04/16/17 Metoprolol Succinate [Toprol Xl 25 mg Tab.sr] 25 mg PO Q12 04/16/17 Potassium Chloride [Klor-Con 10] 10 meq PO DAILY 04/16/17 Pregabalin [Lyrica 50 mg Capsule] 50 mg PO Q8 04/16/17 Ranolazine [Ranexa 500 mg Tab.sr] 500 mg PO BID 04/16/17 Roflumilast [Daliresp 500 mcg Tablet] 500 mcg PO QAM 04/16/17 Ropinirole HCl [Requip 2 mg Tablet] 2 mg PO QHS 04/16/17 Torsemide [Demadex 20 mg Tablet] 20 mg PO QAM 04/16/17 Fluticasone/Salmeterol [Advair 500-50 Diskus 28 Dose] 1 puff IN Q12 04/17/17 Insulin Aspart [Novolog Flexpen] 0 units SQ .SLIDINGSCALE 04/17/17 Insulin Glargine,Hum.rec.anlog [Lantus Solostar] 15 unit SQ QHS 04/17/17 Ipratropium/Albuterol Sulfate [Iprat-Albut 0.5-3(2.5) mg/3 ml] 3 ml NEB Q6HP PRN 04/17/17 Lidocaine [Lidoderm 5% (700 mg) Transdermal Patch] 1 patch TP DAILY 04/17/17 Melatonin 3 mg PO HSP PRN 04/17/17 Olopatadine HCl [Pataday] 1 drop OU DAILYP PRN 04/17/17 Tiotropium [place] [Spiriva Handihaler 18 mcg/dose (30 Dose)] 1 puff IH DAILY Acetaminophen [Tylenol 325 mg Tablet] 650 mg PO Q4HP PRN tablet 04/22/17 Oxycodone HCl/Acetaminophen [Oxycodone-Acetaminophen 10-325] 1 tab PO Q6HP PRN # 12 tablet 04/22/17 Albuterol Sulfate [Proair Hfa Inhalation Aerosol 8.5 gm Mdi] 2 puff IH Q6HP PRN 04/28/17 Allergies/Adverse Reactions: vancomycin Allergy (Verified 07/29/16 11:57) Generalized Itching levofloxacin Adverse Reaction (Verified 07/29/16 14:06) Diarrhea linezolid [From Zyvox] Adverse Reaction (Verified 07/29/16 14:06) Diarrhea Review of Systems Constitutional: ABSENT: chills, fever(s), headache(s), weight gain, weight loss Eyes: ABSENT: visual disturbances Ears: ABSENT: hearing changes Nose, Mouth, and Throat: ABSENT: headache(s), mouth pain, sore throat, vertigo Cardiovascular: ABSENT: chest pain, dyspnea on exertion, edema, orthropnea, palpitations Respiratory: PRESENT: as per HPI Gastrointestinal: ABSENT: abdominal pain, constipation, diarrhea, hematemesis, hematochezia, nausea, vomiting Genitourinary: ABSENT: dysuria, hematuria Musculoskeletal: ABSENT: joint swelling Integumentary: ABSENT: rash, wounds Neurological: ABSENT: abnormal gait, abnormal speech, confusion, dizziness, focal weakness, syncope Psychiatric: ABSENT: anxiety, depression Endocrine: ABSENT: cold intolerance, heat intolerance, polydipsia, polyuria Hematologic/Lymphatic: ABSENT: easy bleeding, easy bruising Physical Exam Vital Signs: Temp Pulse Resp BP Pulse Ox 97.7 F 26 H 130/53 H 91 L 04/28/17 13:11 04/28/17 13:16 04/28/17 13:16 04/28/17 13:16 General appearance: PRESENT: no acute distress, obese Eye exam: PRESENT: conjunctiva pink, EOMI, PERRLA, other - Left pupil is larger than the right pupil.. ABSENT: scleral icterus Ear exam: PRESENT: normal external ear exam Mouth exam: PRESENT: moist, tongue midline Neck exam: ABSENT: carotid bruit, JVD, lymphadenopathy, thyromegaly Respiratory exam: PRESENT: tachypnea, wheezes - Bilateral expiratory wheezes in all lung yusuf.. ABSENT: rales, rhonchi Cardiovascular exam: PRESENT: RRR. ABSENT: diastolic murmur, rubs, systolic murmur Vascular exam: PRESENT: normal capillary refill GI/Abdominal exam: PRESENT: normal bowel sounds, soft. ABSENT: distended, guarding, mass, organolmegaly, rebound, tenderness Rectal exam: PRESENT: deferred Extremities exam: PRESENT: full ROM. ABSENT: calf tenderness, clubbing, pedal edema Neurological exam: PRESENT: alert, awake, oriented to person, oriented to place , oriented to time, oriented to situation. ABSENT: CN II-XII grossly intact - Patient has anisocoria. Left pupil is larger than the right, motor sensory deficit Psychiatric exam: PRESENT: appropriate affect Skin exam: PRESENT: dry, intact, warm. ABSENT: cyanosis, rash Results Impressions: Head CT 04/28/17 00:00 IMPRESSION: NORMAL BRAIN CT WITHOUT CONTRAST. Chest X-Ray 04/28/17 10:10 IMPRESSION: NO SIGNIFICANT RADIOGRAPHIC FINDING IN THE CHEST. Assessment & Plan - Diagnosis (1) Acute and chronic respiratory failure Qualifiers: Is this a current diagnosis for this admission?: Yes Plan: This is secondary to an acute COPD exacerbation. Patient has no evidence for infection. The patient also has a history of diastolic congestive heart failure but appears to be euvolemic. Patient has improved being on the BiPAP. Will continue with that as well as IV steroids and nebulizers. (2) COPD exacerbation Is this a current diagnosis for this admission?: Yes Plan: Patient has an acute COPD exacerbation. There is no evidence for infection. Will treat with IV steroids, nebulizers, BiPAP. (3) Coronary artery disease Qualifiers: Is this a current diagnosis for this admission?: Yes Plan: Patient denies any chest pain. Will continue with aspirin. (4) Diabetes mellitus Qualifiers: Is this a current diagnosis for this admission?: Yes Plan: Continue with Lantus and sliding scale insulin. (5) GERD (gastroesophageal reflux disease) Qualifiers: Is this a current diagnosis for this admission?: Yes (6) Hyperlipidemia Qualifiers: Is this a current diagnosis for this admission?: Yes Plan: Continue with Lipitor. (7) Diastolic CHF Qualifiers: Is this a current diagnosis for this admission?: Yes Plan: Patient has some trace pretibial edema but no evidence for acute diastolic congestive heart failure. She had an echo in October 2016 that showed no evidence for systolic or diastolic dysfunction. (8) Hypertension Qualifiers: Is this a current diagnosis for this admission?: Yes Plan: Continue with metoprolol and Cozaar. (9) INÉS (obstructive sleep apnea) Is this a current diagnosis for this admission?: Yes Plan: Continue with BiPAP. (10) Pulmonary hypertension Is this a current diagnosis for this admission?: Yes (11) Restless leg syndrome Is this a current diagnosis for this admission?: Yes Plan: Continue Requip. (12) Anemia Qualifiers: Is this a current diagnosis for this admission?: Yes Plan: Anemia of chronic disease. (13) Full code status Is this a current diagnosis for this admission?: Yes (14) Anisocoria Is this a current diagnosis for this admission?: Yes Plan: She has no history of trauma or eye problems in the past. Noncontrasted head CT showed no abnormalities. Will follow for now. - Time Time Spent: 50 to 70 Minutes - Inpatient Certification Medical Necessity: Need Close Monitoring Due to Risk of Patient Decompensation
[2017-04-28] MEDS ORDERED: LANSOPRAZOLE 30 MG TAB.RAP.DR PO ONE (15:00)
[2017-04-28] MEDS ORDERED: ENOXAPARIN SODIUM INJ 40 MG/0.4 ML DISP.SYRIN SUBCUT ONE (15:00)
[2017-04-28 15:21] LABS: CREATINE KINASE MB 0.98 ng/mL (<4.55); TROPONIN I 0.02 ng/mL
[2017-04-28] MEDS: PREGABALIN 50 MG CAPSULE PO SCH ×2 (15:25→23:34)
[2017-04-28] MEDS: OXYCODONE HCL IR 5 MG TABLET PO PRN (15:33)
[2017-04-28] MEDS: OXYCODONE-ACETAMINOPHEN 5-325 MG TABLET PO PRN ×2 (15:34→23:36)
[2017-04-28] MEDS: IPRATROPIUM/ALBUTEROL 0.5-2.5 MG/3 ML AMPUL NEB SCH ×2 (16:17→20:09)
[2017-04-28] MEDS: RANOLAZINE 500 MG TAB.SR.12H PO SCH (17:42)
[2017-04-28] MEDS: INSULIN LISPRO 100 UNIT/ML 3 ML VIAL SUBCUT PRN (17:42)
[2017-04-28 20:39] LABS: CREATINE KINASE MB 1.05 ng/mL (<4.55); TROPONIN I 0.02 ng/mL
[2017-04-28] MEDS: ROPINIROLE HCL 2 MG TABLET PO SCH ×2 (23:31→23:34)
[2017-04-28] MEDS: FLUTICASONE/SALMETEROL DISKUS 500-50 MCG/DOSE IH SCH (23:31)
[2017-04-28] MEDS: FAMOTIDINE 20 MG TABLET PO SCH (23:31)
[2017-04-28] MEDS: METOPROLOL SUCCINATE 25 MG TAB.SR.24H PO SCH (23:32)
[2017-04-28] MEDS: ATORVASTATIN CALCIUM 40 MG TABLET PO SCH (23:33)
[2017-04-28] MEDS: INSULIN GLARGINE,HUM.REC.ANLOG 300 UNIT/3 ML INSULN.PEN SUBCUT SCH (23:35)
[2017-04-29] MEDS: OXYCODONE HCL IR 5 MG TABLET PO PRN ×2 (00:40→22:05)
[2017-04-29 02:24] LABS: CREATINE KINASE MB 1.16 ng/mL (<4.55); TROPONIN I 0.025 ng/mL
[2017-04-29] MEDS: PREGABALIN 50 MG CAPSULE PO SCH ×3 (06:00→22:03)
[2017-04-29 07:49] LABS: HGB HCT DIFFERENCE -2.9; MEAN CORPUSCULAR HEMOGLOBIN 20.4 pg (27.0-33.4); MEAN CORPUSCULAR HGB CONC 29.8 g/dL (32.0-36.0); MEAN CORPUSCULAR VOLUME 69 fl (80-97); RED CELL DISTRIBUTION WIDTH 19.7 % (11.5-14.0); WHITE BLOOD COUNT 26.5 10^3/uL (4.0-10.5)
[2017-04-29 07:57] LABS: HEMOGLOBIN 7.7 g/dL (12.0-15.5)
[2017-04-29] MEDS ORDERED: NORMAL SALINE 250 ML IV PRN ×2 (07:59)
[2017-04-29] MEDS ORDERED: FUROSEMIDE INJ/PF 40 MG/4 ML SDV IV PRN (07:59)
[2017-04-29] MEDS ORDERED: (PENDING PHARMACY ID) (Cyanocobalamin (Vitamin B-12) [Vitamin B-12 500 Mcg Tablet] 500 MCG PO SCH (08:00)
[2017-04-29] MEDS ORDERED: (PENDING PHARMACY ID) (Roflumilast [Daliresp 500 Mcg Tablet] 500 MCG) PO SCH (08:00)
[2017-04-29 08:05] LABS: ANION GAP 8 (5-19); BLOOD UREA NITROGEN 29 mg/dL (7-20); CALCIUM 9.6 mg/dL (8.4-10.2); CARBON DIOXIDE 30 mmol/L (22-30); CHLORIDE 107 mmol/L (98-107); CREATININE RESULT 0.79 mg/dL (0.52-1.25); GLUCOSE 165 mg/dL (75-110); MAGNESIUM 2.6 mg/dL (1.6-2.3); POTASSIUM 5.1 mmol/L (3.6-5.0); SODIUM 144.7 mmol/L (137-145)
[2017-04-29 08:15] LABS: CREATINE KINASE MB 1.42 ng/mL (<4.55); TROPONIN I 0.044 ng/mL
[2017-04-29] MEDS: IPRATROPIUM/ALBUTEROL 0.5-2.5 MG/3 ML AMPUL NEB SCH ×4 (08:16→20:34)
[2017-04-29 08:19] LABS: BASOPHILS % (MANUAL) 0 % (0-2); EOSINOPHILS % (MANUAL) 0 % (0-6); LYMPHOCYTES % (MANUAL) 2 % (13-45); TOTAL CELLS COUNTED 100
[2017-04-29 08:20] LABS: ANISOCYTOSIS 2+; HYPOCHROMASIA 2+; MICROCYTOSIS 2+; OVALOCYTES 1+; POIKILOCYTOSIS 1+; POLYCHROMASIA SLIGHT
--- NOTE | 2017-04-29 09:11 | EKG REPORT ---
SEVERITY:- BORDERLINE ECG - SINUS TACHYCARDIA DIFFUSE NONSPECIFIC ST-T CHANGES : Confirmed by: Ming Coates MD 29-Apr-2017 09:11:12
[2017-04-29] MEDS: METOPROLOL SUCCINATE 25 MG TAB.SR.24H PO SCH ×2 (09:42→22:03)
[2017-04-29] MEDS: RANOLAZINE 500 MG TAB.SR.12H PO SCH ×2 (09:42→17:13)
[2017-04-29] MEDS: LANSOPRAZOLE 30 MG TAB.RAP.DR PO SCH (09:42)
[2017-04-29] MEDS: POTASSIUM CHLORIDE 10 MEQ TABLET.SA PO SCH (09:43)
[2017-04-29] MEDS: TORSEMIDE 20 MG TABLET PO SCH (09:43)
[2017-04-29] MEDS: CYANOCOBALAMIN (VITAMIN B-12) 1,000 MCG TABLET PO SCH (09:43)
[2017-04-29] MEDS: ROFLUMILAST 500 MCG TABLET PO SCH (09:44)
[2017-04-29] MEDS: LOSARTAN POTASSIUM 25 MG TABLET PO SCH (09:44)
[2017-04-29] MEDS: FAMOTIDINE 20 MG TABLET PO SCH ×2 (09:44→22:03)
[2017-04-29] MEDS: ASPIRIN 81 MG TABLET, ENT COATED PO SCH (09:45)
[2017-04-29] MEDS: ENOXAPARIN SODIUM INJ 40 MG/0.4 ML DISP.SYRIN SUBCUT SCH (09:45)
[2017-04-29] MEDS: FLUTICASONE/SALMETEROL DISKUS 500-50 MCG/DOSE IH SCH ×2 (09:45→22:04)
[2017-04-29] MEDS: NITROGLYCERIN 10 MG (0.4 MG/HR) PATCH.TD24 TD SCH (09:52)
[2017-04-29] MEDS ORDERED: LIDOCAINE 5% (700 MG) TRANSDERMAL ADH..PATCH TP SCH (10:00)
[2017-04-29] MEDS ORDERED: (PENDING PHARMACY ID) (Esomeprazole Mag Trihydrate [Nexium] 40 MG) PO SCH (10:00)
[2017-04-29] MEDS ORDERED: LIDOCAINE 5% (700 MG) TRANSDERMAL ADH..PATCH TP ONE (13:00)
--- NOTE | 2017-04-29 13:11 | PDOC PROGRESS REPORT ---
Subjective Progress Note for:: 04/29/17 Subjective:: Patient still complains of shortness of breath. Physical Exam Vital Signs: Temp Pulse Resp BP Pulse Ox 97.8 F 94 23 H 113/43 L 92 04/29/17 11:53 04/29/17 11:53 04/29/17 11:53 04/29/17 11:53 04/29/17 11:53 Intake & Output 04/28/17 04/29/17 04/30/17 06:59 06:59 06:59 Intake Total 932 275 Output Total 700 400 Balance 232 -125 Weight 108.8 kg General appearance: PRESENT: no acute distress Eye exam: PRESENT: conjunctiva pink. ABSENT: scleral icterus Mouth exam: PRESENT: moist, tongue midline Neck exam: ABSENT: JVD Respiratory exam: PRESENT: wheezes - Bilateral expiratory wheezes. ABSENT: rales, rhonchi Cardiovascular exam: PRESENT: RRR. ABSENT: diastolic murmur, rubs, systolic murmur GI/Abdominal exam: PRESENT: normal bowel sounds, soft. ABSENT: distended, guarding, mass, organolmegaly, rebound, tenderness Extremities exam: ABSENT: calf tenderness, clubbing, pedal edema Neurological exam: PRESENT: alert, awake, oriented to person, oriented to place , oriented to time, oriented to situation, CN II-XII grossly intact. ABSENT: motor sensory deficit Psychiatric exam: PRESENT: appropriate affect Skin exam: PRESENT: dry, intact, warm. ABSENT: cyanosis, rash Results Laboratory Results: 04/29/17 07:37 04/29/17 07:37 04/29/17 04/29/17 04/29/17 07:37 07:37 08:47 WBC 26.5 H RBC 3.80 Hgb 7.7 L Hct 26.0 L MCV 69 L MCH 20.4 L MCHC 29.8 L RDW 19.7 H Plt Count 278 Seg Neutrophils % Not Reportable Lymphocytes % Not Reportable Monocytes % Not Reportable Eosinophils % Not Reportable Basophils % Not Reportable Absolute Neutrophils Not Reportable Absolute Lymphocytes Not Reportable Absolute Monocytes Not Reportable Absolute Eosinophils Not Reportable Absolute Basophils Not Reportable Sodium 144.7 Potassium 5.1 H Chloride 107 Carbon Dioxide 30 Anion Gap 8 BUN 29 H Creatinine 0.79 Est GFR ( Amer) > 60 Est GFR (Non-Af Amer) > 60 Glucose 165 H Calcium 9.6 Magnesium 2.6 H Blood Type A NEGATIVE Antibody Screen NEGATIVE 04/28/17 04/28/17 04/28/17 14:20 14:20 19:45 Creatine Kinase < 20 L < 20 L CK-MB (CK-2) 0.98 Troponin I 0.020 04/28/17 04/29/17 04/29/17 19:45 01:44 01:44 Creatine Kinase < 20 L CK-MB (CK-2) 1.05 1.16 Troponin I 0.020 0.025 04/29/17 04/29/17 07:37 07:37 Creatine Kinase < 20 L CK-MB (CK-2) 1.42 Troponin I 0.044 Impressions: Head CT 04/28/17 00:00 IMPRESSION: NORMAL BRAIN CT WITHOUT CONTRAST. Chest X-Ray 04/28/17 10:10 IMPRESSION: NO SIGNIFICANT RADIOGRAPHIC FINDING IN THE CHEST. Assessment & Plan - Diagnosis (1) Acute and chronic respiratory failure Qualifiers: Is this a current diagnosis for this admission?: Yes Plan: This is secondary to an acute COPD exacerbation. Patient has no evidence for infection. The patient also has a history of diastolic congestive heart failure but appears to be euvolemic. Patient has improved being on the BiPAP. Will continue with that as well as IV steroids and nebulizers. (2) COPD exacerbation Is this a current diagnosis for this admission?: Yes Plan: Patient has an acute COPD exacerbation. There is no evidence for infection. Will continue with IV steroids, nebulizers, BiPAP. (3) Coronary artery disease Qualifiers: Is this a current diagnosis for this admission?: Yes Plan: Patient denies any chest pain. Will continue with aspirin. (4) Diabetes mellitus Qualifiers: Is this a current diagnosis for this admission?: Yes Plan: Continue with Lantus and sliding scale insulin. (5) GERD (gastroesophageal reflux disease) Qualifiers: Is this a current diagnosis for this admission?: Yes (6) Hyperlipidemia Qualifiers: Is this a current diagnosis for this admission?: Yes Plan: Continue with Lipitor. (7) Diastolic CHF Qualifiers: Is this a current diagnosis for this admission?: Yes Plan: Patient has some trace pretibial edema but no evidence for acute diastolic congestive heart failure. She had an echo in October 2016 that showed no evidence for systolic or diastolic dysfunction. (8) Hypertension Qualifiers: Is this a current diagnosis for this admission?: Yes Plan: Continue with metoprolol and Cozaar. (9) INÉS (obstructive sleep apnea) Is this a current diagnosis for this admission?: Yes Plan: Continue with BiPAP. (10) Pulmonary hypertension Is this a current diagnosis for this admission?: Yes (11) Restless leg syndrome Is this a current diagnosis for this admission?: Yes Plan: Continue Requip. (12) Anemia Qualifiers: Is this a current diagnosis for this admission?: Yes Plan: Anemia of chronic disease. (13) Full code status Is this a current diagnosis for this admission?: Yes (14) Anisocoria Is this a current diagnosis for this admission?: Yes Plan: She has no history of trauma or eye problems in the past. Noncontrasted head CT showed no abnormalities. Will follow for now. - Time Time Spent with patient: 25-34 minutes - Inpatient Certification Medical Necessity: Need Close Monitoring Due to Risk of Patient Decompensation
--- NOTE | 2017-04-29 13:51 | RADIOLOGY REPORT (SQ) ---
EXAM DESCRIPTION: INJECT VENOUS ACCESS DEVICE COMPLETED DATE/TIME: 04/29/2017 1:33 pm REASON FOR STUDY: port a cath not functioning COMPARISON: None. FLUOROSCOPY TIME: . 26 seconds 3 images saved to PACS. TECHNIQUE: Fluoroscopic guided injection of non-ionic contrast through an existing port a catheter. LIMITATIONS: None. PROCEDURE: The patient was brought into the fluoroscopic room and placed supine on the table. The fl tient's port access site was prepped and draped in a sterile fashion. The port was the accessed by [facility] floor nurse. The catheter was then injected with 5 ml of non-ionic contrast. A series of fluoroscop ic images demonstrate no extravasation from the port well or any evidence of fibrin sheath at the end of the catheter. IMPRESSION: PATENT PORT A CATHETER WITHOUT ANY EVIDENCE OF EXTRAVASATION OR FIBRIN SHEATH. COMMENT: Quality ID [id number]: Final reports for procedures using fluoroscopy that document radiation exp osure indices, or exposure time and number of fluorographic images (if radiation exposure indices are not available) TECHNICAL DOCUMENTATION: JOB ID: [id number] [employer]- All Rights Reserved
[2017-04-29] MEDS: INSULIN LISPRO 100 UNIT/ML 3 ML VIAL SUBCUT PRN (14:28)
[2017-04-29 16:30] LABS: CREATINE KINASE MB 1.38 ng/mL (<4.55); TROPONIN I 0.054 ng/mL
[2017-04-29 21:32] LABS: CREATINE KINASE MB 1.69 ng/mL (<4.55); TROPONIN I 0.074 ng/mL
[2017-04-29] MEDS: ATORVASTATIN CALCIUM 40 MG TABLET PO SCH (22:04)
[2017-04-29] MEDS: INSULIN GLARGINE,HUM.REC.ANLOG 300 UNIT/3 ML INSULN.PEN SUBCUT SCH (22:04)
[2017-04-29] MEDS: ROPINIROLE HCL 2 MG TABLET PO SCH (22:05)
[2017-04-29] MEDS: OXYCODONE-ACETAMINOPHEN 5-325 MG TABLET PO PRN (22:07)
[2017-04-30] MEDS: PREGABALIN 50 MG CAPSULE PO SCH ×3 (06:06→22:56)
[2017-04-30 06:46] LABS: ABSOLUTE LYMPHOCYTES (AUTO) 1.5 10^3/uL (0.5-4.7); ABSOLUTE MONOCYTES (AUTO) 1.1 10^3/uL (0.1-1.4); ABSOLUTE NEUT (AUTO) 14.4 10^3/uL (1.7-8.2); BASOPHILS % (AUTO) 0.3 % (0-2); EOSINOPHILS % (AUTO) 0.2 % (0-6); HEMOGLOBIN 9.4 g/dL (12.0-15.5); HGB HCT DIFFERENCE -1.8; LYMPHOCYTES % (AUTO) 8.8 % (13-45); MEAN CORPUSCULAR HEMOGLOBIN 21.9 pg (27.0-33.4); MEAN CORPUSCULAR HGB CONC 31.4 g/dL (32.0-36.0); MEAN CORPUSCULAR VOLUME 70 fl (80-97); MONOCYTES % (AUTO) 6.2 % (3-13); RED CELL DISTRIBUTION WIDTH 20.8 % (11.5-14.0); SEGMENTED NEUTROPHILS % (AUTO) 84.5 % (42-78); WHITE BLOOD COUNT 17.1 10^3/uL (4.0-10.5)
[2017-04-30 07:00] LABS: ANION GAP 11 (5-19); BLOOD UREA NITROGEN 39 mg/dL (7-20); CARBON DIOXIDE 33 mmol/L (22-30); CHLORIDE 101 mmol/L (98-107); GLUCOSE 95 mg/dL (75-110); POTASSIUM 4.5 mmol/L (3.6-5.0); SODIUM 144.5 mmol/L (137-145)
[2017-04-30] MEDS: IPRATROPIUM/ALBUTEROL 0.5-2.5 MG/3 ML AMPUL NEB SCH ×5 (08:24→23:32)
[2017-04-30] MEDS: RANOLAZINE 500 MG TAB.SR.12H PO SCH ×2 (09:50→17:18)
[2017-04-30] MEDS: TORSEMIDE 20 MG TABLET PO SCH (09:50)
[2017-04-30] MEDS: FAMOTIDINE 20 MG TABLET PO SCH ×2 (09:50→22:56)
[2017-04-30] MEDS: ROFLUMILAST 500 MCG TABLET PO SCH (09:50)
[2017-04-30] MEDS: POTASSIUM CHLORIDE 10 MEQ TABLET.SA PO SCH (09:50)
[2017-04-30] MEDS: METOPROLOL SUCCINATE 25 MG TAB.SR.24H PO SCH ×2 (09:50→22:57)
[2017-04-30] MEDS: LOSARTAN POTASSIUM 25 MG TABLET PO SCH (09:51)
[2017-04-30] MEDS: CYANOCOBALAMIN (VITAMIN B-12) 1,000 MCG TABLET PO SCH (09:51)
[2017-04-30] MEDS: ASPIRIN 81 MG TABLET, ENT COATED PO SCH (09:51)
[2017-04-30] MEDS: ENOXAPARIN SODIUM INJ 40 MG/0.4 ML DISP.SYRIN SUBCUT SCH (09:51)
[2017-04-30] MEDS: NITROGLYCERIN 10 MG (0.4 MG/HR) PATCH.TD24 TD SCH (09:52)
[2017-04-30] MEDS: FLUTICASONE/SALMETEROL DISKUS 500-50 MCG/DOSE IH SCH ×2 (09:52→22:56)
[2017-04-30] MEDS: LIDOCAINE 5% (700 MG) TRANSDERMAL ADH..PATCH TP SCH (09:53)
[2017-04-30] MEDS: LANSOPRAZOLE 30 MG TAB.RAP.DR PO SCH (10:30)
[2017-04-30] MEDS ORDERED: ALBUTEROL SULFATE 0.042% NEB (1.25 MG/3 ML) AMPUL NEB PRN (11:01)
--- NOTE | 2017-04-30 11:09 | PDOC PROGRESS REPORT ---
Subjective Progress Note for:: 04/30/17 Subjective:: Patient is on BiPAP. Still complaining of shortness of breath with no significant improvement. No reported temperature spikes, increasing, respiratory distress, diarrhea, nausea or vomiting, nor pleurisy. Physical Exam Vital Signs: Temp Pulse Resp BP Pulse Ox 98.3 F 88 20 114/44 L 94 04/30/17 07:31 04/30/17 08:26 04/30/17 08:26 04/30/17 07:31 04/30/17 08:26 Intake & Output 04/29/17 04/30/17 05/01/17 06:59 06:59 06:59 Intake Total 932 1835 Output Total 700 4400 Balance 232 -2565 Weight 108.8 kg 108.9 kg General appearance: PRESENT: no acute distress, morbidly obese Head exam: PRESENT: normocephalic Eye exam: PRESENT: EOMI Mouth exam: PRESENT: moist, neck supple Neck exam: ABSENT: JVD Respiratory exam: PRESENT: rhonchi - Scattered bilateral, wheezes - Scattered bilateral Cardiovascular exam: PRESENT: RRR. ABSENT: gallop GI/Abdominal exam: PRESENT: normal bowel sounds, soft. ABSENT: distended - Obese, tenderness Extremities exam: ABSENT: pedal edema Neurological exam: PRESENT: alert, awake, oriented to situation Skin exam: PRESENT: dry, warm. ABSENT: cyanosis Results Laboratory Results: 04/30/17 06:38 04/30/17 06:38 04/29/17 04/30/17 04/30/17 08:47 06:38 06:38 WBC 17.1 H RBC 4.30 Hgb 9.4 L Hct 30.0 L MCV 70 L MCH 21.9 L MCHC 31.4 L RDW 20.8 H Plt Count 255 Seg Neutrophils % 84.5 H Lymphocytes % 8.8 L Monocytes % 6.2 Eosinophils % 0.2 Basophils % 0.3 Absolute Neutrophils 14.4 H Absolute Lymphocytes 1.5 Absolute Monocytes 1.1 Absolute Eosinophils 0.0 Absolute Basophils 0.0 Sodium 144.5 Potassium 4.5 Chloride 101 Carbon Dioxide 33 H Anion Gap 11 BUN 39 H Creatinine 0.90 Est GFR ( Amer) > 60 Est GFR (Non-Af Amer) > 60 Glucose 95 Calcium 9.0 Blood Type A NEGATIVE Antibody Screen NEGATIVE 04/28/17 04/28/17 04/28/17 14:20 14:20 19:45 Creatine Kinase < 20 L < 20 L CK-MB (CK-2) 0.98 Troponin I 0.020 04/28/17 04/29/17 04/29/17 19:45 01:44 01:44 Creatine Kinase < 20 L CK-MB (CK-2) 1.05 1.16 Troponin I 0.020 0.025 04/29/17 04/29/17 04/29/17 07:37 07:37 15:20 Creatine Kinase < 20 L < 20 L CK-MB (CK-2) 1.42 Troponin I 0.044 04/29/17 04/29/17 04/29/17 15:20 20:40 20:40 Creatine Kinase 20 L CK-MB (CK-2) 1.38 1.69 Troponin I 0.054 0.074 Impressions: Head CT 04/28/17 00:00 IMPRESSION: NORMAL BRAIN CT WITHOUT CONTRAST. Chest X-Ray 04/28/17 10:10 IMPRESSION: NO SIGNIFICANT RADIOGRAPHIC FINDING IN THE CHEST. Venous Access Device Injection 04/29/17 00:00 IMPRESSION: PATENT PORT A CATHETER WITHOUT ANY EVIDENCE OF EXTRAVASATION OR FIBRIN SHEATH. Assessment & Plan - Time Time Spent with patient: 25-34 minutes - Plan Summary Plan Summary: Continue nebulizer. Continue ventilatory support. Begin intravenous steroids. Patient had prior history of Pseudomonas and currently growing Pseudomonas of the sputum. We will begin cefepime and tobramycin inhaler. Continue other medications and supportive care.
[2017-04-30] MEDS ORDERED: TOBRAMYCIN SULFATE INJ 80 MG/2 ML VIAL NEB SCH (11:15)
--- NOTE | 2017-04-30 11:58 | RADIOLOGY REPORT (SQ) ---
EXAM DESCRIPTION: CHEST SINGLE VIEW COMPLETED DATE/TIME: 04/30/2017 11:36 am REASON FOR STUDY: pneumonia COMPARISON: 04/28/2017 EXAM PARAMETERS: NUMBER OF VIEWS: One view. TECHNIQUE: Single frontal radiographic view of the chest acquired. RADIATION DOSE: NA LIMITATIONS: None. FINDINGS: LUNGS AND PLEURA: Chronic interstitial changes are present. There is a limited area of op acification in the right lung laterally. There is no significant pleural effusion. MEDIASTINUM AND HILAR STRUCTURES: No masses. Contour normal. HEART AND VASCULAR STRUCTURES: Heart size is borderline. Pulmonary vascular congestion. BONES: No acute findings. HARDWARE: Injection port on the right. Sternotomy wires. OTHER: No other significant finding. IMPRESSION: Borderline cardiomegaly with pulmonary vascular congestion but no sierra CHF. Chronic leopoldo ng changes are present. A limited pneumonia cannot be ruled out in the middle lobe or right lower lo be. TECHNICAL DOCUMENTATION: JOB ID: [id number]
[2017-04-30] MEDS: CEFEPIME 1 GM/D5W RTU 1 GM/50 ML RTUPB IV SCH (12:13)
[2017-04-30] MEDS: METHYLPREDNISOLONE INJ 125 MG/2 ML SDV IV SCH ×2 (13:59→22:57)
[2017-04-30] MEDS: TOBRAMYCIN SULFATE NEB 40 MG/ML 30 ML NEB SCH (20:21)
[2017-04-30] MEDS: ROPINIROLE HCL 2 MG TABLET PO SCH (22:56)
[2017-04-30] MEDS: INSULIN GLARGINE,HUM.REC.ANLOG 300 UNIT/3 ML INSULN.PEN SUBCUT SCH (22:56)
[2017-04-30] MEDS: ATORVASTATIN CALCIUM 40 MG TABLET PO SCH (22:56)
[2017-04-30] MEDS: INSULIN LISPRO 100 UNIT/ML 3 ML VIAL SUBCUT PRN (23:17)
[2017-04-30] MEDS: OXYCODONE-ACETAMINOPHEN 5-325 MG TABLET PO PRN (23:17)
[2017-04-30] MEDS: OXYCODONE HCL IR 5 MG TABLET PO PRN (23:17)
[2017-05-01] MEDS: CEFEPIME 1 GM/D5W RTU 1 GM/50 ML RTUPB IV SCH ×3 (00:08→23:55)
[2017-05-01] MEDS: IPRATROPIUM/ALBUTEROL 0.5-2.5 MG/3 ML AMPUL NEB SCH ×5 (03:41→20:43)
[2017-05-01] MEDS: METHYLPREDNISOLONE INJ 125 MG/2 ML SDV IV SCH ×2 (06:23→14:05)
[2017-05-01] MEDS: OXYCODONE HCL IR 5 MG TABLET PO PRN ×3 (06:23→22:39)
[2017-05-01] MEDS: OXYCODONE-ACETAMINOPHEN 5-325 MG TABLET PO PRN ×3 (06:23→22:39)
[2017-05-01] MEDS: PREGABALIN 50 MG CAPSULE PO SCH ×3 (06:23→22:38)
[2017-05-01] MEDS: TOBRAMYCIN SULFATE NEB 40 MG/ML 30 ML NEB SCH ×2 (07:59→21:03)
[2017-05-01] MEDS: CYANOCOBALAMIN (VITAMIN B-12) 1,000 MCG TABLET PO SCH (08:33)
[2017-05-01] MEDS: NITROGLYCERIN 10 MG (0.4 MG/HR) PATCH.TD24 TD SCH (08:34)
[2017-05-01] MEDS: TORSEMIDE 20 MG TABLET PO SCH (08:37)
[2017-05-01] MEDS: ROFLUMILAST 500 MCG TABLET PO SCH (08:38)
[2017-05-01] MEDS: LIDOCAINE 5% (700 MG) TRANSDERMAL ADH..PATCH TP SCH (09:12)
[2017-05-01] MEDS: LOSARTAN POTASSIUM 25 MG TABLET PO SCH (09:13)
[2017-05-01] MEDS: ENOXAPARIN SODIUM INJ 40 MG/0.4 ML DISP.SYRIN SUBCUT SCH (09:13)
[2017-05-01] MEDS: METOPROLOL SUCCINATE 25 MG TAB.SR.24H PO SCH ×2 (09:14→22:38)
[2017-05-01] MEDS: LANSOPRAZOLE 30 MG TAB.RAP.DR PO SCH (09:15)
[2017-05-01] MEDS: RANOLAZINE 500 MG TAB.SR.12H PO SCH ×2 (09:15→17:27)
[2017-05-01] MEDS: FAMOTIDINE 20 MG TABLET PO SCH ×2 (09:15→22:38)
[2017-05-01] MEDS: POTASSIUM CHLORIDE 10 MEQ TABLET.SA PO SCH (09:15)
[2017-05-01] MEDS: FLUTICASONE/SALMETEROL DISKUS 500-50 MCG/DOSE IH SCH ×2 (09:16→22:39)
[2017-05-01] MEDS: ASPIRIN 81 MG TABLET, ENT COATED PO SCH (09:16)
[2017-05-01] MEDS: INSULIN LISPRO 100 UNIT/ML 3 ML VIAL SUBCUT PRN ×3 (12:09→22:38)
--- NOTE | 2017-05-01 14:23 | PDOC PROGRESS REPORT ---
Subjective Progress Note for:: 05/01/17 Subjective:: Patient slightly feels better this morning. Denies any chills or fever. No diarrhea. No nausea vomiting or sweating. No abdominal pain or chest pain. Blood sugar reportedly high. Patient on steroids intravenously. Physical Exam Vital Signs: Temp Pulse Resp BP Pulse Ox 98.4 F 83 18 133/52 H 90 L 05/01/17 12:00 05/01/17 12:00 05/01/17 12:00 05/01/17 12:00 05/01/17 12:00 Intake & Output 04/30/17 05/01/17 05/02/17 06:59 06:59 06:59 Intake Total 1835 1210 Output Total 4400 1100 Balance -2565 110 Weight 108.9 kg 108.7 kg General appearance: PRESENT: mild distress, morbidly obese, other - On nasal cannula oxygen Head exam: PRESENT: normocephalic Eye exam: PRESENT: EOMI Mouth exam: PRESENT: moist, neck supple Neck exam: ABSENT: JVD Respiratory exam: PRESENT: rhonchi - Scattered bilateral, wheezes - Minimal bilateral, air entry is better Cardiovascular exam: PRESENT: RRR. ABSENT: gallop GI/Abdominal exam: PRESENT: soft. ABSENT: distended - Obese, tenderness Extremities exam: ABSENT: pedal edema Neurological exam: PRESENT: alert, awake, oriented to situation Skin exam: PRESENT: dry, warm. ABSENT: cyanosis Results Laboratory Results: 04/30/17 06:38 04/30/17 06:38 04/28/17 19:50 Sputum Gram Stain - Final 04/28/17 19:50 Sputum Sputum Culture - Final Pseudomonas Aeruginosa Normal Romi 04/28/17 19:50 Nasophary (Mrsa Only) MRSA Surveillance Culture - Final MRSA RECOVERED 04/28/17 04/28/17 04/28/17 14:20 14:20 19:45 Creatine Kinase < 20 L < 20 L CK-MB (CK-2) 0.98 Troponin I 0.020 04/28/17 04/29/17 04/29/17 19:45 01:44 01:44 Creatine Kinase < 20 L CK-MB (CK-2) 1.05 1.16 Troponin I 0.020 0.025 04/29/17 04/29/17 04/29/17 07:37 07:37 15:20 Creatine Kinase < 20 L < 20 L CK-MB (CK-2) 1.42 Troponin I 0.044 04/29/17 04/29/17 04/29/17 15:20 20:40 20:40 Creatine Kinase 20 L CK-MB (CK-2) 1.38 1.69 Troponin I 0.054 0.074 Impressions: Head CT 04/28/17 00:00 IMPRESSION: NORMAL BRAIN CT WITHOUT CONTRAST. Venous Access Device Injection 04/29/17 00:00 IMPRESSION: PATENT PORT A CATHETER WITHOUT ANY EVIDENCE OF EXTRAVASATION OR FIBRIN SHEATH. Chest X-Ray 04/30/17 00:00 IMPRESSION: Borderline cardiomegaly with pulmonary vascular congestion but no sierra CHF. Chronic lung changes are present. A limited pneumonia cannot be ruled out in the middle lobe or right lower lobe. Assessment & Plan - Diagnosis (1) Acute respiratory failure with hypoxia Is this a current diagnosis for this admission?: Yes (2) Pneumonia Qualifiers: Pneumonia type: due to unspecified organism Laterality: unspecified laterality Lung location: unspecified part of lung Qualified Code(s): J18.9 - Pneumonia, unspecified organism Is this a current diagnosis for this admission?: Yes (3) COPD exacerbation Is this a current diagnosis for this admission?: Yes (4) Anisocoria Is this a current diagnosis for this admission?: Yes (5) Anemia of chronic disease Is this a current diagnosis for this admission?: Yes (6) Coronary artery disease Qualifiers: Coronary Disease-Associated Artery/Lesion type: hoh artery [place] vs. transplanted heart: hoh heart Associated angina: without angina Qualified Code(s): I25.10 - Atherosclerotic heart disease of hoh coronary artery without angina pectoris Is this a current diagnosis for this admission?: Yes (7) Diabetes mellitus Qualifiers: Diabetes mellitus type: type 2 Diabetes mellitus complication status: with unspecified complications Diabetes mellitus long term care pharmacist insulin use: unspecified long term care pharmacist insulin use status Qualified Code(s): E11.8 - Type 2 diabetes mellitus with unspecified complications Is this a current diagnosis for this admission?: Yes (8) GERD (gastroesophageal reflux disease) Qualifiers: Esophagitis presence: without esophagitis Is this a current diagnosis for this admission?: Yes (9) Hyperlipidemia Qualifiers: Hyperlipidemia type: unspecified Is this a current diagnosis for this admission?: Yes (10) Diastolic CHF Qualifiers: Congestive heart failure chronicity: chronic Is this a current diagnosis for this admission?: Yes (11) Obstructive sleep apnea Is this a current diagnosis for this admission?: Yes (12) Pulmonary hypertension Is this a current diagnosis for this admission?: Yes (13) Restless leg syndrome Is this a current diagnosis for this admission?: Yes - Time Time Spent with patient: 25-34 minutes - Plan Summary Plan Summary: Begin intravenous cefepime and inhaled tobramycin. We will discontinue intravenous steroids and switch to oral. Continue bronchodilators. Continue supportive care.
[2017-05-01] MEDS: PREDNISONE 20 MG TABLET PO SCH (15:14)
[2017-05-01] MEDS: INSULIN GLARGINE,HUM.REC.ANLOG 300 UNIT/3 ML INSULN.PEN SUBCUT SCH (22:38)
[2017-05-01] MEDS: ATORVASTATIN CALCIUM 40 MG TABLET PO SCH (22:38)
[2017-05-01] MEDS: ROPINIROLE HCL 2 MG TABLET PO SCH (22:40)
[2017-05-02] MEDS: IPRATROPIUM/ALBUTEROL 0.5-2.5 MG/3 ML AMPUL NEB SCH ×6 (04:17→19:50)
[2017-05-02] MEDS: PREGABALIN 50 MG CAPSULE PO SCH ×3 (06:38→23:11)
[2017-05-02] MEDS: TOBRAMYCIN SULFATE NEB 40 MG/ML 30 ML NEB SCH ×2 (07:42→19:50)
[2017-05-02] MEDS: NITROGLYCERIN 10 MG (0.4 MG/HR) PATCH.TD24 TD SCH (08:55)
[2017-05-02] MEDS: INSULIN LISPRO 100 UNIT/ML 3 ML VIAL SUBCUT PRN ×3 (08:55→23:10)
[2017-05-02] MEDS: CYANOCOBALAMIN (VITAMIN B-12) 1,000 MCG TABLET PO SCH (08:56)
[2017-05-02] MEDS: TORSEMIDE 20 MG TABLET PO SCH (08:58)
[2017-05-02] MEDS: ENOXAPARIN SODIUM INJ 40 MG/0.4 ML DISP.SYRIN SUBCUT SCH (10:19)
[2017-05-02] MEDS: POTASSIUM CHLORIDE 10 MEQ TABLET.SA PO SCH (10:20)
[2017-05-02] MEDS: LIDOCAINE 5% (700 MG) TRANSDERMAL ADH..PATCH TP SCH (10:20)
[2017-05-02] MEDS: LOSARTAN POTASSIUM 25 MG TABLET PO SCH (10:21)
[2017-05-02] MEDS: RANOLAZINE 500 MG TAB.SR.12H PO SCH ×2 (10:21→23:11)
[2017-05-02] MEDS: LANSOPRAZOLE 30 MG TAB.RAP.DR PO SCH (10:22)
[2017-05-02] MEDS: FAMOTIDINE 20 MG TABLET PO SCH ×2 (10:22→23:12)
[2017-05-02] MEDS: METOPROLOL SUCCINATE 25 MG TAB.SR.24H PO SCH ×2 (10:22→23:12)
[2017-05-02] MEDS: ROFLUMILAST 500 MCG TABLET PO SCH (10:22)
[2017-05-02] MEDS: FLUTICASONE/SALMETEROL DISKUS 500-50 MCG/DOSE IH SCH ×2 (10:23→23:12)
[2017-05-02] MEDS: ASPIRIN 81 MG TABLET, ENT COATED PO SCH (10:23)
--- NOTE | 2017-05-02 11:40 | PDOC PROGRESS REPORT ---
Subjective Progress Note for:: 05/02/17 Subjective:: Continues to improve slowly. Denies any wheezing. Cough still persists but less. No diarrhea chills nor fever Physical Exam Vital Signs: Temp Pulse Resp BP Pulse Ox 97.4 F 90 16 148/60 H 90 L 05/02/17 07:30 05/02/17 11:13 05/02/17 11:13 05/02/17 07:30 05/02/17 07:42 Intake & Output 05/01/17 05/02/17 05/03/17 06:59 06:59 06:59 Intake Total 1210 1084 Output Total 1100 800 Balance 110 284 Weight 108.7 kg 108.4 kg General appearance: PRESENT: no acute distress, morbidly obese Head exam: PRESENT: normocephalic Eye exam: PRESENT: EOMI Mouth exam: PRESENT: moist, neck supple Neck exam: ABSENT: JVD Respiratory exam: PRESENT: rhonchi - Scattered bilateral, wheezes - Minimal mild expiratory wheezes Cardiovascular exam: PRESENT: RRR. ABSENT: gallop GI/Abdominal exam: PRESENT: soft. ABSENT: distended - Obese, tenderness Extremities exam: ABSENT: pedal edema Neurological exam: PRESENT: alert, awake, oriented to situation Skin exam: PRESENT: dry, warm. ABSENT: cyanosis Results Laboratory Results: 04/30/17 06:38 04/30/17 06:38 04/28/17 04/28/17 04/28/17 14:20 14:20 19:45 Creatine Kinase < 20 L < 20 L CK-MB (CK-2) 0.98 Troponin I 0.020 04/28/17 04/29/17 04/29/17 19:45 01:44 01:44 Creatine Kinase < 20 L CK-MB (CK-2) 1.05 1.16 Troponin I 0.020 0.025 04/29/17 04/29/17 04/29/17 07:37 07:37 15:20 Creatine Kinase < 20 L < 20 L CK-MB (CK-2) 1.42 Troponin I 0.044 04/29/17 04/29/17 04/29/17 15:20 20:40 20:40 Creatine Kinase 20 L CK-MB (CK-2) 1.38 1.69 Troponin I 0.054 0.074 Impressions: Head CT 04/28/17 00:00 IMPRESSION: NORMAL BRAIN CT WITHOUT CONTRAST. Venous Access Device Injection 04/29/17 00:00 IMPRESSION: PATENT PORT A CATHETER WITHOUT ANY EVIDENCE OF EXTRAVASATION OR FIBRIN SHEATH. Chest X-Ray 04/30/17 00:00 IMPRESSION: Borderline cardiomegaly with pulmonary vascular congestion but no sierra CHF. Chronic lung changes are present. A limited pneumonia cannot be ruled out in the middle lobe or right lower lobe. Assessment & Plan - Diagnosis (1) Acute respiratory failure with hypoxia Is this a current diagnosis for this admission?: Yes (2) Pneumonia Qualifiers: Pneumonia type: due to unspecified organism Laterality: unspecified laterality Lung location: unspecified part of lung Qualified Code(s): J18.9 - Pneumonia, unspecified organism Is this a current diagnosis for this admission?: Yes (3) COPD exacerbation Is this a current diagnosis for this admission?: Yes (4) Anisocoria Is this a current diagnosis for this admission?: Yes (5) Anemia of chronic disease Is this a current diagnosis for this admission?: Yes (6) Coronary artery disease Qualifiers: Coronary Disease-Associated Artery/Lesion type: [place] artery [place] vs. transplanted heart: [place] heart Associated angina: without angina Qualified Code(s): I25.10 - Atherosclerotic heart disease of [place] coronary artery without angina pectoris Is this a current diagnosis for this admission?: Yes (7) Diabetes mellitus Qualifiers: Diabetes mellitus type: type 2 Diabetes mellitus complication status: with unspecified complications Diabetes mellitus penitentiary insulin use: unspecified penitentiary insulin use status Qualified Code(s): E11.8 - Type 2 diabetes mellitus with unspecified complications Is this a current diagnosis for this admission?: Yes (8) GERD (gastroesophageal reflux disease) Qualifiers: Esophagitis presence: without esophagitis Is this a current diagnosis for this admission?: Yes (9) Hyperlipidemia Qualifiers: Hyperlipidemia type: unspecified Is this a current diagnosis for this admission?: Yes (10) Diastolic CHF Qualifiers: Congestive heart failure chronicity: chronic Is this a current diagnosis for this admission?: Yes (11) Obstructive sleep apnea Is this a current diagnosis for this admission?: Yes (12) Pulmonary hypertension Is this a current diagnosis for this admission?: Yes (13) Restless leg syndrome Is this a current diagnosis for this admission?: Yes - Time Time Spent with patient: 15-24 minutes - Plan Summary Plan Summary: We will begin physical therapy. Continue antibiotics for Pseudomonas. Continue steroids and bronchodilators. Continue supportive care and supplemental oxygen.
[2017-05-02] MEDS: CEFEPIME 1 GM/D5W RTU 1 GM/50 ML RTUPB IV SCH ×2 (12:23→23:38)
[2017-05-02] MEDS ORDERED: ONDANSETRON HCL INJ/PF 4 MG/2 ML SDV IV PRN (13:00)
[2017-05-02] MEDS ORDERED: ONDANSETRON 4 MG TAB.RAPDIS PO PRN (13:30)
[2017-05-02] MEDS: PREDNISONE 20 MG TABLET PO SCH (17:02)
[2017-05-02] MEDS ORDERED: PHARMACY COMMUNICATION ORDER MC SCH (22:00)
[2017-05-02] MEDS: ATORVASTATIN CALCIUM 40 MG TABLET PO SCH (23:10)
[2017-05-02] MEDS: INSULIN GLARGINE,HUM.REC.ANLOG 300 UNIT/3 ML INSULN.PEN SUBCUT SCH (23:10)
[2017-05-02] MEDS: ROPINIROLE HCL 2 MG TABLET PO SCH (23:11)
[2017-05-03] MEDS: IPRATROPIUM/ALBUTEROL 0.5-2.5 MG/3 ML AMPUL NEB SCH ×4 (00:03→13:15)
[2017-05-03] MEDS ORDERED: LANSOPRAZOLE 30 MG TAB.RAP.DR PO SCH (06:00)
[2017-05-03] MEDS: PREGABALIN 50 MG CAPSULE PO SCH (06:44)
[2017-05-03 07:25] LABS: HEMATOCRIT 34.3 % (36.0-47.0); HEMOGLOBIN 10.9 g/dL (12.0-15.5); HGB HCT DIFFERENCE -1.6; MEAN CORPUSCULAR HEMOGLOBIN 22.7 pg (27.0-33.4); MEAN CORPUSCULAR HGB CONC 31.7 g/dL (32.0-36.0); MEAN CORPUSCULAR VOLUME 72 fl (80-97); RED BLOOD COUNT 4.79 10^6/uL (3.72-5.28); RED CELL DISTRIBUTION WIDTH 22.7 % (11.5-14.0); WHITE BLOOD COUNT 13.4 10^3/uL (4.0-10.5)
[2017-05-03] MEDS: TOBRAMYCIN SULFATE NEB 40 MG/ML 30 ML NEB SCH (09:06)
[2017-05-03] MEDS: ENOXAPARIN SODIUM INJ 40 MG/0.4 ML DISP.SYRIN SUBCUT SCH (09:42)
[2017-05-03] MEDS: ASPIRIN 81 MG TABLET, ENT COATED PO SCH (09:43)
[2017-05-03] MEDS: POTASSIUM CHLORIDE 10 MEQ TABLET.SA PO SCH (09:43)
[2017-05-03] MEDS: RANOLAZINE 500 MG TAB.SR.12H PO SCH (09:43)
[2017-05-03] MEDS: LOSARTAN POTASSIUM 25 MG TABLET PO SCH (09:44)
[2017-05-03] MEDS: CYANOCOBALAMIN (VITAMIN B-12) 1,000 MCG TABLET PO SCH (09:44)
--- NOTE | 2017-05-03 09:45 | PDOC DISCHARGE SUMMARY ---
General - Admit/Disc Date/PCP Admission Date/Primary Care Provider: 04/28/17 13:27 TYSON ROLDAN MD Discharge Date: 05/03/17 - Discharge Diagnosis (1) Acute respiratory failure with hypoxia Is this a current diagnosis for this admission?: Yes (2) Pneumonia Is this a current diagnosis for this admission?: Yes (3) COPD exacerbation Is this a current diagnosis for this admission?: Yes (4) Anisocoria Is this a current diagnosis for this admission?: Yes (5) Anemia of chronic disease Is this a current diagnosis for this admission?: Yes (6) Coronary artery disease Is this a current diagnosis for this admission?: Yes (7) Diabetes mellitus Is this a current diagnosis for this admission?: Yes (8) GERD (gastroesophageal reflux disease) Is this a current diagnosis for this admission?: Yes (9) Hyperlipidemia Is this a current diagnosis for this admission?: Yes (10) Diastolic CHF Is this a current diagnosis for this admission?: Yes (11) Obstructive sleep apnea Is this a current diagnosis for this admission?: Yes (12) Pulmonary hypertension Is this a current diagnosis for this admission?: Yes (13) Restless leg syndrome Is this a current diagnosis for this admission?: Yes - Additional Information Resuscitation Status: Full Code Discharge Diet: Cardiac - Low-fat low-salt, Diabetic - No concentrated sweets Discharge Activity: Activity As Tolerated, Balance Activity w/Rest, Slowly Increase Activity Home Medications: Aspirin [Aspirin EC] 81 mg PO DAILY 04/16/17 Atorvastatin Calcium [Lipitor 40 mg Tablet] 40 mg PO QHS 04/16/17 Cyanocobalamin (Vitamin B-12) [Vitamin B-12 500 mcg Tablet] 500 mcg PO QAM 04/16 Esomeprazole Mag Trihydrate [Nexium] 40 mg PO DAILY 04/16/17 Losartan Potassium [Cozaar 25 mg Tablet] 25 mg PO DAILY 04/16/17 Metoprolol Succinate [Toprol Xl 25 mg Tab.sr] 25 mg PO Q12 04/16/17 Potassium Chloride [Klor-Con 10] 10 meq PO DAILY 04/16/17 Pregabalin [Lyrica 50 mg Capsule] 50 mg PO Q8 04/16/17 Ranolazine [Ranexa 500 mg Tab.sr] 500 mg PO BID 04/16/17 Roflumilast [Daliresp 500 mcg Tablet] 500 mcg PO QAM 04/16/17 Ropinirole HCl [Requip 2 mg Tablet] 2 mg PO QHS 04/16/17 Torsemide [Demadex 20 mg Tablet] 20 mg PO QAM 04/16/17 Fluticasone/Salmeterol [Advair 500-50 Diskus 28 Dose] 1 puff IN Q12 04/17/17 Insulin Aspart [Novolog Flexpen] See Protocol SQ AC PRN 04/17/17 Insulin Glargine,Hum.rec.anlog [Lantus Solostar] 25 unit SQ QHS 04/17/17 Melatonin 3 mg PO HSP PRN 04/17/17 Olopatadine HCl [Pataday] 1 drop OU DAILYP PRN 04/17/17 Tiotropium [place] [Spiriva Handihaler 18 mcg/dose (30 Dose)] 1 puff IH DAILY Acetaminophen [Tylenol 325 mg Tablet] 650 mg PO Q4HP PRN tablet 04/22/17 Albuterol Sulfate [Proair HFA Inhalation Aerosol 8.5 gm MDI] 2 puff IH Q6HP PRN 04/28/17 Nitroglycerin [Nitro-Dur 10 mg (0.4MG/Hr) Transdermal Patch] 1 patch TD QAM 12/10 Cefepime 1 gm/D5w RTU [Maxipime RTU 1 gm/D5w 50 ml Premix Bag] 1 gm IV Q12 12 Days #24 rtupb 05/03/17 Ipratropium/Albuterol Sulfate [Duoneb 3 ml Ampul] 3 ml NEB RTQ4 vial.neb Lidocaine [Lidoderm 5% (700 mg) Transdermal Patch] 1 patch TP DAILY #10 adh..patch 05/03/17 Oxycodone HCl/Acetaminophen [Oxycodone-Acetaminophen 10-325] 1 tab PO Q6HP PRN # 12 tablet 05/03/17 Prednisone 20 mg PO DAILY #0 05/03/17 Prednisone 40 mg PO DAILY #8 tablet 05/03/17 Tobramycin Sulfate [Tobramycin Neb 40 mg/ml 30 ml Vial] 300 mg NEB RTQ12 ml 04/11 Additional Information: 1. Port-A-Cath management as per protocol at the facility 2. De-access Port-A-Cath after IV antibiotics completed 3. Prednisone 40 mg daily for 4 days only then resume home dose of 20 mg a day 4. Cefepime and tobramycin only for 12 days History of Present Illness Patient complains of: Shortness of breath History of Present Illness: DAGO GRAFF is a 72 year old female with a history of COPD for which she is oxygen dependent at 3 L per day who was discharged on April 22 from this facility. She reports that she was initially doing well but 2 days ago began having worsening cough shortness of breath as well as wheezing. The patient reports that her cough has been nonproductive. She denies any fevers or chills. She denies any chest pain. She denies any orthopnea or PND but does relate she does have lower extremity edema. The patient does have a history of diastolic congestive heart failure. Patient has taken her medications as prescribed and has just completed a steroid taper. The patient denies any recent travel. She denies any fevers or chills. The patient also was noted to have anisocoria with a dilated left pupil but she is uncertain as if she has had this previously. She denies any focal weakness. For details please refer to history and physical examination performed by the admitting physician. Hospital Course Hospital Course: The patient was admitted to the [facility]. The patient was placed on BiPAP for respiratory failure. The patient was started on intravenous steroid, and around -the-clock nebulizers. Broad-spectrum antibiotic was started cultures were performed. Eventually sputum culture grew Pseudomonas and the patient was started on tobramycin inhaler and intravenous cefepime. With the above measures the patient significantly improved. Physical therapy was begun and the patient tolerated ambulation well. Her WBC was trending down. The rest of the hospital stays unremarkable. The patient was referred to shoe planner for home IV antibiotic infusion. Patient has a whitish plaque on the lower eyelid of the right eye. She has been scheduled to see a clinical auditor and advised to keep and follow on the appointment. Physical Exam Vital Signs: Temp Pulse Resp BP Pulse Ox 97.9 F 71 25 H 140/52 H 91 L 05/03/17 07:48 05/03/17 07:48 05/03/17 07:48 05/03/17 07:48 05/03/17 07:48 Intake & Output 05/02/17 05/03/17 05/04/17 06:59 06:59 06:59 Intake Total 1084 901 Output Total 800 3500 Balance 284 -2599 Weight 108.4 kg 107.5 kg General appearance: PRESENT: no acute distress, morbidly obese Head exam: PRESENT: normocephalic Eye exam: PRESENT: EOMI Mouth exam: PRESENT: moist, neck supple Neck exam: ABSENT: JVD Respiratory exam: PRESENT: rhonchi - Few bilateral, unlabored, wheezes - Mild bilateral, other - Air entry is good Cardiovascular exam: PRESENT: RRR. ABSENT: gallop GI/Abdominal exam: PRESENT: soft. ABSENT: distended, tenderness Extremities exam: PRESENT: other - Trace pretibial edema Neurological exam: PRESENT: alert, awake, oriented to person, oriented to place , oriented to time, oriented to situation Skin exam: PRESENT: dry, warm. ABSENT: cyanosis Results Laboratory Results: 05/03/17 07:14 04/30/17 06:38 05/03/17 07:14 WBC 13.4 H RBC 4.79 Hgb 10.9 L Hct 34.3 L MCV 72 L MCH 22.7 L MCHC 31.7 L RDW 22.7 H Plt Count 259 04/28/17 04/28/17 04/28/17 14:20 14:20 19:45 Creatine Kinase < 20 L < 20 L CK-MB (CK-2) 0.98 Troponin I 0.020 04/28/17 04/29/17 04/29/17 19:45 01:44 01:44 Creatine Kinase < 20 L CK-MB (CK-2) 1.05 1.16 Troponin I 0.020 0.025 04/29/17 04/29/17 04/29/17 07:37 07:37 15:20 Creatine Kinase < 20 L < 20 L CK-MB (CK-2) 1.42 Troponin I 0.044 04/29/17 04/29/17 04/29/17 15:20 20:40 20:40 Creatine Kinase 20 L CK-MB (CK-2) 1.38 1.69 Troponin I 0.054 0.074 Impressions: Head CT 04/28/17 00:00 IMPRESSION: NORMAL BRAIN CT WITHOUT CONTRAST. Venous Access Device Injection 04/29/17 00:00 IMPRESSION: PATENT PORT A CATHETER WITHOUT ANY EVIDENCE OF EXTRAVASATION OR FIBRIN SHEATH. Chest X-Ray 04/30/17 00:00 IMPRESSION: Borderline cardiomegaly with pulmonary vascular congestion but no sierra CHF. Chronic lung changes are present. A limited pneumonia cannot be ruled out in the middle lobe or right lower lobe. Qualifiers PATEINT BEING DISCHARGED WITH ANY OF THE FOLLOWING DIAGNOSIS?: No Plan Discharge Plan: Follow-up with primary care physician in 1 week. The patient will be followed by the facility physician as well. Ophthalmology appointment as scheduled. Time Spent: Less than 30 Minutes
[2017-05-03] MEDS: FAMOTIDINE 20 MG TABLET PO SCH (09:46)
[2017-05-03] MEDS: METOPROLOL SUCCINATE 25 MG TAB.SR.24H PO SCH (09:46)
[2017-05-03] MEDS: ROFLUMILAST 500 MCG TABLET PO SCH (09:47)
[2017-05-03] MEDS: NITROGLYCERIN 10 MG (0.4 MG/HR) PATCH.TD24 TD SCH (09:48)
[2017-05-03] MEDS: TORSEMIDE 20 MG TABLET PO SCH (09:48)
[2017-05-03] MEDS: FLUTICASONE/SALMETEROL DISKUS 500-50 MCG/DOSE IH SCH (09:50)
[2017-05-03] MEDS: LIDOCAINE 5% (700 MG) TRANSDERMAL ADH..PATCH TP SCH (09:50)
[2017-05-03] MEDS ORDERED: PREDNISONE 20 MG TABLET PO SCH (10:00)
[2017-05-03] MEDS: CEFEPIME 1 GM/D5W RTU 1 GM/50 ML RTUPB IV SCH (12:06)
[2017-05-03 12:15] VITALS: BP 143/65
== END 2017-05-03 13:35 | DRG 190 ==
LOC: ER 10:03 → EH 12:13 → UNDOADMIN 12:13 → 3S 13:27 → EH 13:45
PROVIDERS: ADMIT Internal Medicine; ATTEND Internal Medicine
PROC: 5A09557 Assistance with Respiratory Ventilation, Greater than 96 Consecutive Hours, Continuous Positive Airway Pressure (ICD-10-PCS; principal; 2017-04-28)
PROC: 30233N1 Transfusion of Nonautologous Red Blood Cells into Peripheral Vein, Percutaneous Approach (ICD-10-PCS; 2017-04-28)
DX: J44.0 Chronic obstructive pulmonary disease with (acute) lower respiratory infection (principal); J96.01 Acute respiratory failure with hypoxia; J15.1 Pneumonia due to Pseudomonas; I50.32 Chronic diastolic (congestive) heart failure; J44.1 Chronic obstructive pulmonary disease with (acute) exacerbation; I11.0 Hypertensive heart disease with heart failure; I25.10 Atherosclerotic heart disease of native coronary artery without angina pectoris; E11.9 Type 2 diabetes mellitus without complications; E78.5 Hyperlipidemia, unspecified; G47.33 Obstructive sleep apnea (adult) (pediatric); I27.2 Other secondary pulmonary hypertension; D64.9 Anemia, unspecified; F41.9 Anxiety disorder, unspecified; H57.02 Anisocoria; K21.9 Gastro-esophageal reflux disease without esophagitis; G25.81 Restless legs syndrome; Z88.1 Allergy status to other antibiotic agents; Z99.81 Dependence on supplemental oxygen; Z88.8 Allergy status to other drugs, medicaments and biological substances; Z95.1 Presence of aortocoronary bypass graft; Z86.14 Personal history of Methicillin resistant Staphylococcus aureus infection; Z90.49 Acquired absence of other specified parts of digestive tract; Z90.710 Acquired absence of both cervix and uterus; Z79.52 Long term (current) use of systemic steroids; Z79.4 Long term (current) use of insulin
CPT/HCPCS: 36415; 36430; 36598; 70450; 71010; 80048; 80053; 82550; 82553; 82803; 82962; 83605; 83735; 83880; 84484; 85025; 85027; 85379; 86850; 86900; 86901; 86920; 87040; 87070; 87077; 87186; 87205; 93005; 93010; 94640; 94660; 96374; 99291; G8978-GP; G8979-GP; G8980-GP; J0692; J1642; J1650; J1815; J1940; J2930; J3490; J7512; J7614; J7620; J7685; P9016

== ENCOUNTER 2017-07-02 09:32 | Day surgery (SDC) | payer MEDICARE, MEDICAID ==
--- NOTE | 2017-07-02 10:18 | RADIOLOGY REPORT (SQ) ---
EXAM DESCRIPTION: CHEST SINGLE VIEW COMPLETED DATE/TIME: 07/02/2017 10:10 am REASON FOR STUDY: PREOP COMPARISON: CT chest 11/27/2016 AP chest 04/28/2017, 04/30/2017 EXAM PARAMETERS: NUMBER OF VIEWS: One view. TECHNIQUE: Single frontal radiographic view of the chest acquired. RADIATION DOSE: NA LIMITATIONS: None. FINDINGS: LUNGS AND PLEURA: Minimal bandlike scarring or atelectasis left upper lobe. Lungs are otherwise well inflated and clear. No pleural effusion. No pneumothorax. MEDIASTINUM AND HILAR STRUCTURES: No masses. Contour normal. HEART AND VASCULAR STRUCTURES: Stable mild cardiomegaly and post sternotomy with CABG. BONES: No acute findings. HARDWARE: Right-sided permanent central line tip superior vena cava OTHER: No other significant finding. IMPRESSION: Bandlike scarring or atelectasis in the left upper lobe. TECHNICAL DOCUMENTATION: JOB ID: [id number] [employer]- All Rights Reserved
[2017-07-02 11:04] LABS: ANION GAP 13 (5-19); BLOOD UREA NITROGEN 18 mg/dL (7-20); CALCIUM 9.8 mg/dL (8.4-10.2); CARBON DIOXIDE 28 mmol/L (22-30); CHLORIDE 104 mmol/L (98-107); CREATININE RESULT 0.73 mg/dL (0.52-1.25); GLUCOSE 86 mg/dL (75-110); HEMATOCRIT 43.3 % (36.0-47.0); HEMOGLOBIN 13.9 g/dL (12.0-15.5); HGB HCT DIFFERENCE -1.6; MEAN CORPUSCULAR HEMOGLOBIN 25.7 pg (27.0-33.4); MEAN CORPUSCULAR VOLUME 80 fl (80-97); POTASSIUM 4.3 mmol/L (3.6-5.0); RED BLOOD COUNT 5.39 10^6/uL (3.72-5.28); RED CELL DISTRIBUTION WIDTH 25.2 % (11.5-14.0); SODIUM 144.5 mmol/L (137-145); WHITE BLOOD COUNT 8.2 10^3/uL (4.0-10.5)
[2017-07-02] MEDS ORDERED: ALTEPLASE INJ 2 MG VIAL (CATH CLEARANCE) ONE (15:15)
[2017-07-02 16:20] VITALS: BP 144/57
--- NOTE | 2017-07-02 17:26 | RADIOLOGY REPORT (SQ) ---
EXAM DESCRIPTION: FLUORO OF CENTRAL LINE COMPLETED DATE/TIME: 07/02/2017 4:42 pm REASON FOR STUDY: T82.858A T82.858A STENOSIS OF OTHER VASCULAR PROSTH DEV/GRFT, INIT COMPARISON: None. FLUOROSCOPY TIME: Less than 30 seconds No images saved to PACS. TECHNIQUE: Intra-operative images acquired during surgical procedure to evaluate progress. NUMBER OF IMAGES: No clinical images saved to pacs LIMITATIONS: None. FINDINGS: Intra procedural fluoro for Dr. Staton IMPRESSION: Intra procedural fluoro for Dr. Staton COMMENT: Quality ID [id number]: Final reports for procedures using fluoroscopy that document radiation exp osure indices, or exposure time and number of fluorographic images (if radiation exposure indices are not available) Please consult full operative report of the attending physician for description of the procedure. TECHNICAL DOCUMENTATION: JOB ID: [id number] [employer]- All Rights Reserved
--- NOTE | 2017-07-03 17:43 | PDOC DISCHARGE SUMMARY ---
Discharge Summary (SDC) - Discharge Final Diagnosis: #1 malfunctioning Port-A-Cath. 2. Multiple comorbidities. Date of Surgery: 07/03/17 Discharge Date: 07/03/17 Condition: Fair Forms: Discharge POC-Surgical Service Treatment or Instructions: Discharge home [after recovery per ASU criteria]. Diet , diabetic,as tolerated, when fully awake advance as tolerated. Activities within moderation encouraged. Follow up in my office by appointment in about [1 week]. Call for appointment. Leave wounds [covered], [keep clean and dry, until office visit in 1 week]. Hold of on school/work [until evaluation in office]. May shower [in 48 hrs], [try to keep operated area as dry as possible]. Referrals: CLAIRE PENDLETON MD [ACTIVE STAFF] - 07/04/17 10:30 am Respiratory Treatments at Home: Deep Breathing/Coughing Discharge Activity: Balance Activity w/Rest Home Care Assistance: Provided by Family Report the Following to Your Physician Immediately: Shortness of Breath, Nausea , Vomiting, Increase in Pain, Fever over 101 Degrees, Unusual Bleeding, Redness , Swelling, Warmth, Increased Soreness, Drainage-Yellow, Drainage-Ortez, Drainage -Green, Drainage-Foul Smelling, IV Site Infection Signs
--- NOTE | 2017-07-03 17:47 | Operative Report ---
Operative Report DATE OF SURGERY: 07/03/17 PREOPERATIVE DIAGNOSIS: #1 malfunctioning Port-A-Cath. 2. Multiple comorbidities. POSTOPERATIVE DIAGNOSIS: #1 malfunctioning Port-A-Cath. 2. Multiple comorbidities. OPERATION: 1. Port-A-Cath angiogram. 2. Instillation of cath flow. 3. Angiogram and interpretation. SURGEON: CLAIRE NEVAREZ FUNCTIONAL DIRECTOR: None ANESTHESIA: Local TISSUE REMOVED OR ALTERED: Not applicable COMPLICATIONS: None ESTIMATED BLOOD LOSS: 2 mL INTRAOPERATIVE FINDINGS: Of a well founded dual lumen Port-A-Cath based in the right internal jugular vein. The tip of the catheter is down in the superior vena cava. Angiogram demonstrated patency of the both lumens. There was flow of contrast through the superior vena caval right atrium and pulmonary outflow tract. It was somewhat difficult to see the flow in the superior vena cava and there may be a fibrin sheath. Not well demonstrated however. The catheter was flushed with 3 mils of Cath marv for a total total of 2 mg and left in for access subsequently. PROCEDURE: After the universal timeout, the patient was taken to the [facility] Machin[facility] Helper and positioned supine. The right upper chest area prepared with chlorhexidine and draped with sterile linen. A Villeda needle was used to access the lateral port. Aspiration was negative for blood return. Contrast was now instilled under digital fluoroscopy. The findings were as dictated. The lumen was now flushed with 3 mils of cath flow solution, approximately 1 mg. The medial portal was now accessed with a Villeda needle. Aspiration was negative for blood return. Contrast was irrigated under digital fluoroscopy. The findings were identical to above. This lumen was also flushed with 1 mg in about 3 mils of solution. The ports would be accessed and dressings applied.
== END 2017-07-02 16:15 | disposition home or self-care (01) ==
LOC: CCL 09:32
PROVIDERS: ATTEND Surgery
PROC: B513ZZZ Fluoroscopy of Right Jugular Veins (ICD-10-PCS; principal; 2017-07-02)
DX: T82.858A Stenosis of other vascular prosthetic devices, implants and grafts, initial encounter (principal); Y83.2 Surgical operation with anastomosis, bypass or graft as the cause of abnormal reaction of the patient, or of later complication, without mention of misadventure at the time of the procedure; D63.1 Anemia in chronic kidney disease; E11.22 Type 2 diabetes mellitus with diabetic chronic kidney disease; I12.0 Hypertensive chronic kidney disease with stage 5 chronic kidney disease or end stage renal disease; N18.6 End stage renal disease; J44.9 Chronic obstructive pulmonary disease, unspecified; G47.30 Sleep apnea, unspecified; E78.00 Pure hypercholesterolemia, unspecified; F17.210 Nicotine dependence, cigarettes, uncomplicated; Z96.641 Presence of right artificial hip joint; Z79.51 Long term (current) use of inhaled steroids; Z79.4 Long term (current) use of insulin; Z79.899 Other long term (current) drug therapy; Z79.82 Long term (current) use of aspirin
CPT/HCPCS: 36415; 85027; 80048; 75898; 71010; Q9967; J2997

== ENCOUNTER → 2017-07-05 | Outpatient (CLI) | payer MEDICARE, MEDICAID ==
[2017-07-05 08:18] LABS: ABSOLUTE BASOPHILS # (AUTO) 0.1 10^3/uL (0.0-0.2); ABSOLUTE EOSINOPHILS # (AUTO) 0.1 10^3/uL (0.0-0.6); ABSOLUTE MONOCYTES (AUTO) 0.5 10^3/uL (0.1-1.4); BASOPHILS % (AUTO) 0.9 % (0-2); EOSINOPHILS % (AUTO) 1.9 % (0-6); HEMATOCRIT 41.5 % (36.0-47.0); HGB HCT DIFFERENCE -2.5; LYMPHOCYTES % (AUTO) 30.2 % (13-45); MEAN CORPUSCULAR HEMOGLOBIN 25.4 pg (27.0-33.4); MEAN CORPUSCULAR HGB CONC 31.4 g/dL (32.0-36.0); MEAN CORPUSCULAR VOLUME 81 fl (80-97); MONOCYTES % (AUTO) 7.3 % (3-13); RED BLOOD COUNT 5.13 10^6/uL (3.72-5.28); RED CELL DISTRIBUTION WIDTH 24.6 % (11.5-14.0); SEGMENTED NEUTROPHILS % (AUTO) 59.7 % (42-78); WHITE BLOOD COUNT 6.8 10^3/uL (4.0-10.5)
[2017-07-05 08:46] LABS: ANISOCYTOSIS 3+; OVALOCYTES 1+; POIKILOCYTOSIS 1+; POLYCHROMASIA SLIGHT; ROULEAUX SLIGHT
[2017-07-05 08:58] LABS: ERYTHROCYTE SEDIMENTATION RATE 21 mm/hr (0-30)
[2017-07-05 09:05] LABS: ALANINE AMINOTRANSFERASE 19 U/L (9-52); ALBUMIN 3.6 g/dL (3.5-5.0); ALKALINE PHOSPHATASE 72 U/L (38-126); ANION GAP 11 (5-19); ASPARTATE AMINO TRANSFERASE 16 U/L (14-36); BILIRUBIN,DIRECT 0.3 mg/dL (0.0-0.4); BILIRUBIN,TOTAL 0.4 mg/dL (0.2-1.3); BLOOD UREA NITROGEN 18 mg/dL (7-20); C-REACTIVE PROTEIN 13.2 mg/L (<10.0); CALCIUM 9.5 mg/dL (8.4-10.2); CARBON DIOXIDE 31 mmol/L (22-30); CHLORIDE 104 mmol/L (98-107); CREATININE RESULT 0.78 mg/dL (0.52-1.25); GLUCOSE 73 mg/dL (75-110); POTASSIUM 4.6 mmol/L (3.6-5.0); SODIUM 146.3 mmol/L (137-145); TOTAL PROTEIN 5.7 g/dL (6.3-8.2)
[2017-07-06 13:37] LABS: ANTI-SS-B AB SJOGREN'S <0.2 AI (0.0-0.9); JO-1 ANTIBODY <0.2 AI (0.0-0.9)
[2017-07-07 13:01] LABS: DNA DOUBLE STRAND ANTIBODY 3 IU/mL (0-9)
[2017-07-08 17:37] LABS: CYTOPLASMIC (C-ANCA) <1:20 titer (Neg:<1:20)
== END ==
LOC: OD 07:08
PROVIDERS: ATTEND Internal Medicine Critical Care Medicine
DX: J45.998 Other asthma (principal); R05 Cough; J44.9 Chronic obstructive pulmonary disease, unspecified; K21.9 Gastro-esophageal reflux disease without esophagitis; R06.00 Dyspnea, unspecified; Z86.79 Personal history of other diseases of the circulatory system; Z87.01 Personal history of pneumonia (recurrent); Z87.09 Personal history of other diseases of the respiratory system; G47.33 Obstructive sleep apnea (adult) (pediatric)
CPT/HCPCS: 36415; 80053; 85025; 85652; 86021; 86038; 86140; 86225; 86235; 86430

== ENCOUNTER 2017-08-23 13:07 | Inpatient (IN) | payer MEDICARE, MEDICAID ==
[2017-08-23] MEDS ORDERED: IPRATROPIUM/ALBUTEROL 0.5-2.5 MG/3 ML AMPUL NEB ONE ×2 (13:18→13:22)
[2017-08-23] MEDS ORDERED: METHYLPREDNISOLONE INJ 125 MG/2 ML SDV IV ONE (13:22)
--- NOTE | 2017-08-23 13:24 | ER Document Report ---
ED Medical Screen (RME) - General Mode of Arrival: Ambulatory Information source: Patient TRAVEL OUTSIDE OF THE [place] IN LAST 30 DAYS: No - General Chief Complaint: Breathing Difficulty Stated Complaint: DIFFICULTY BREATHING Time Seen by Provider: 08/23/17 13:17 Notes: Patient is a 72 year old female with a history of COPD presentsto the emergency department in respiratory distress. Patient also complains of a productive cough. Patient normally uses oxygen at home. Patient is speaking in 2-3 word sentences. (PATRICIA DAMON) - Related Data Allergies/Adverse Reactions: vancomycin Allergy (Verified 07/02/17 10:56) Generalized Itching levofloxacin Adverse Reaction (Verified 07/02/17 10:56) Diarrhea linezolid [From Zyvox] Adverse Reaction (Verified 07/02/17 10:56) Diarrhea Past Medical History - General Information source: Patient - Social History Cigarette use (# per day): Yes Frequency of alcohol use: None - Past Medical History Cardiac Medical History: Reports: Hx Coronary Artery Disease - CABG, Hx Hypercholesterolemia - zocor , Hx Hypertension Pulmonary Medical History: Reports: Hx Asthma, Hx Bronchitis, Hx COPD, Hx Pneumonia - MRSA 2014 , Hx Sleep Apnea - bipap , Hx Tuberculosis - +PPD in 1959' s - on meds x 1 year Endocrine Medical History: Reports: Hx Diabetes Mellitus Type 1, Hx Diabetes Mellitus Type 2 GI Medical History: Reports: Hx Gastroesophageal Reflux Disease Musculoskeltal Medical History: Reports Hx Arthritis Psychiatric Medical History: Reports: Hx Anxiety, Hx Depression Traumatic Medical History: Reports: Hx Fractures - lumbar Infectious Medical History: Reports: Hx MRSA - Reported MRSA pneumonia, 2014 Past Surgical History: Reports: Hx Appendectomy, Hx Cardiac Surgery - CABGx2, Hx Cholecystectomy, Hx Coronary Artery Bypass Graft - 2008 x 2 grafts , Hx Hysterectomy, Hx Open Heart Surgery - 3v, Hx Orthopedic Surgery - Left footsurgery, cyst removal from left hand, Hx Tonsillectomy - Immunizations Hx Diphtheria, Pertussis, Tetanus Vaccination: Yes History of Influenza Vaccine for 05/2017 - 10/2017 Season: No Review of Systems - Review of Systems Constitutional: No symptoms reported EENT: No symptoms reported Cardiovascular: No symptoms reported Respiratory: See HPI, Short of breath Gastrointestinal: No symptoms reported Genitourinary: No symptoms reported Female Genitourinary: No symptoms reported Musculoskeletal: No symptoms reported Skin: No symptoms reported Hematologic/Lymphatic: No symptoms reported Neurological/Psychological: No symptoms reported -: Yes All other systems reviewed and negative Physical Exam - Vital signs Interpretation: Hypoxic - General General appearance: Alert In distress: Mild - HEENT Head: Normocephalic, Atraumatic Eyes: Normal Conjunctiva: Normal - Respiratory Respiratory status: Respiratory distress Chest status: Nontender Breath sounds: Decreased air movement, Wheezing - Vital signs Vitals: Temp Pulse Resp BP Pulse Ox 98.9 F 103 H 36 H 112/53 L 65 L 08/23/17 13:14 08/23/17 13:14 08/23/17 13:14 08/23/17 13:14 08/23/17 13:14 Course - Re-evaluation Re-evalutation: 08/23/17 13:34 Patient taken to the main ED room. DuoNeb given. Respiratory therapy called. Chest x-ray ordered. 08/23/17 13:34 I personally performed the services described in the documentation, reviewed and edited the documentation which was dictated to the scribe in my presence, and it accurately records my words and actions. (JOSUE NELSON) - Vital Signs Vital signs: Temp Pulse Resp BP Pulse Ox 98.9 F 103 H 36 H 112/53 L 65 L 08/23/17 13:14 08/23/17 13:14 08/23/17 13:14 08/23/17 13:14 08/23/17 13:14 Scribe Documentation - Scribe Written by Zoey:: Zoey Hernandez, 08/23/2017 13:24 acting as scribe for :: Mechelle
[2017-08-23] MEDS ORDERED: ETOMIDATE INJ/PF 20 MG/10 ML SDV IV ONE ×2 (13:26→14:54)
[2017-08-23] MEDS ORDERED: PROPOFOL 100 ML IV ONE (13:51)
[2017-08-23] MEDS ORDERED: PROPOFOL 100 ML IV PRN (13:51)
[2017-08-23 13:58] LABS: ABSOLUTE BASOPHILS # (AUTO) 0.1 10^3/uL (0.0-0.2); ABSOLUTE EOSINOPHILS # (AUTO) 0.1 10^3/uL (0.0-0.6); ABSOLUTE LYMPHOCYTES (AUTO) 2.4 10^3/uL (0.5-4.7); ABSOLUTE MONOCYTES (AUTO) 0.7 10^3/uL (0.1-1.4); ABSOLUTE NEUT (AUTO) 8.1 10^3/uL (1.7-8.2); BASOPHILS % (AUTO) 0.6 % (0-2); EOSINOPHILS % (AUTO) 0.5 % (0-6); HEMATOCRIT 47.1 % (36.0-47.0); HEMOGLOBIN 15.2 g/dL (12.0-15.5); LYMPHOCYTES % (AUTO) 20.9 % (13-45); MEAN CORPUSCULAR HEMOGLOBIN 26.1 pg (27.0-33.4); MEAN CORPUSCULAR HGB CONC 32.3 g/dL (32.0-36.0); MEAN CORPUSCULAR VOLUME 81 fl (80-97); MONOCYTES % (AUTO) 6.3 % (3-13); PLATELET COUNT 228 10^3/uL (150-450); RED BLOOD COUNT 5.83 10^6/uL (3.72-5.28); RED CELL DISTRIBUTION WIDTH 17.8 % (11.5-14.0); SEGMENTED NEUTROPHILS % (AUTO) 71.7 % (42-78); TOTAL CELLS COUNTED % (AUTO) 100 %; VENOUS BLOOD BASE EXCESS 3.3 mmol/L; VENOUS BLOOD HCO3 29.2 mmol/L (20-32); VENOUS BLOOD PCO2 48.8 mmHg (35-63); VENOUS BLOOD PH 7.4 (7.30-7.42); WHITE BLOOD COUNT 11.3 10^3/uL (4.0-10.5)
[2017-08-23] MEDS ORDERED: MIDAZOLAM 2 MG/2 ML INJ ONE ×2 (14:11→14:44)
[2017-08-23 14:16] LABS: ALANINE AMINOTRANSFERASE 22 U/L (9-52); ALBUMIN 4.3 g/dL (3.5-5.0); ALKALINE PHOSPHATASE 93 U/L (38-126); ANION GAP 12 (5-19); ASPARTATE AMINO TRANSFERASE 17 U/L (14-36); BILIRUBIN,DIRECT 0.3 mg/dL (0.0-0.4); BILIRUBIN,TOTAL 0.5 mg/dL (0.2-1.3); BLOOD UREA NITROGEN 12 mg/dL (7-20); CALCIUM 10.2 mg/dL (8.4-10.2); CARBON DIOXIDE 30 mmol/L (22-30); CHLORIDE 102 mmol/L (98-107); GLUCOSE 80 mg/dL (75-110); POTASSIUM 4.2 mmol/L (3.6-5.0); SODIUM 144.3 mmol/L (137-145); TOTAL PROTEIN 6.6 g/dL (6.3-8.2)
[2017-08-23 14:20] LABS: INTERNATIONAL RATION (INR) 0.99; PROTHROMBIN TIME 13.8 SEC (11.4-15.4)
[2017-08-23] MEDS ORDERED: DEXAMETHASONE SOD PHOS INJ 10 MG/1 ML VIAL IV ONE (14:25)
--- NOTE | 2017-08-23 14:25 | ER Document Report ---
ED General - General Chief Complaint: Breathing Difficulty Stated Complaint: DIFFICULTY BREATHING Time Seen by Provider: 08/23/17 13:17 Mode of Arrival: Ambulatory Notes: 72 yr old female hx of copd , still smokes, 3 previous intubations on 5 L nc and cpap at nighttime at home presents with complaints of sob. pt has been having shortness of breath over the past few days, patient admits to intermittent productive cough TRAVEL OUTSIDE OF THE [place] IN LAST 30 DAYS: No - HPI Onset: Other - 2-3 days Onset/Duration: Persistent Quality of pain: No pain Severity: Severe Pain Level: 5 Associated symptoms: Nonproductive cough, Shortness of breath Exacerbated by: Coughing Relieved by: Denies Similar symptoms previously: Yes Recently seen / treated by doctor: Yes - Related Data Allergies/Adverse Reactions: vancomycin Allergy (Verified 07/02/17 10:56) Generalized Itching levofloxacin Adverse Reaction (Verified 07/02/17 10:56) Diarrhea linezolid [From Zyvox] Adverse Reaction (Verified 07/02/17 10:56) Diarrhea Past Medical History - General Information source: Patient - Social History Smoking Status: Current Every Day Smoker Cigarette use (# per day): Yes Chew tobacco use (# tins/day): No Smoking Education Provided: Yes - Patient counselled regarding cessation for 4 minutes Frequency of alcohol use: None Family History: CAD, DM, Hypertension Patient has suicidal ideation: No Patient has homicidal ideation: No - Past Medical History Cardiac Medical History: Reports: Hx Coronary Artery Disease - CABG, Hx Hypercholesterolemia - zocor , Hx Hypertension Pulmonary Medical History: Reports: Hx Asthma, Hx Bronchitis, Hx COPD, Hx Pneumonia - MRSA 2014 , Hx Sleep Apnea - bipap , Hx Tuberculosis - +PPD in s - on meds x 1 year Endocrine Medical History: Reports: Hx Diabetes Mellitus Type 1, Hx Diabetes Mellitus Type 2 Renal/ Medical History: Denies: Hx Peritoneal Dialysis GI Medical History: Reports: Hx Gastroesophageal Reflux Disease Musculoskeltal Medical History: Reports Hx Arthritis Psychiatric Medical History: Reports: Hx Anxiety, Hx Depression Traumatic Medical History: Reports: Hx Fractures - lumbar Infectious Medical History: Reports: Hx MRSA - Reported MRSA pneumonia, 2014 Past Surgical History: Reports: Hx Appendectomy, Hx Cardiac Surgery - CABGx2, Hx Cholecystectomy, Hx Coronary Artery Bypass Graft - 2008 x 2 grafts , Hx Hysterectomy, Hx Open Heart Surgery - 3v, Hx Orthopedic Surgery - Left footsurgery, cyst removal from left hand, Hx Tonsillectomy - Immunizations Hx Diphtheria, Pertussis, Tetanus Vaccination: Yes Hx Pneumococcal Vaccination: 08/26/12 Review of Systems - Review of Systems Notes: REVIEW OF SYSTEMS: CONSTITUTIONAL : Denies fever, chills, or sweats. Denies recent illness. EENT: Denies eye, ear, throat, or mouth pain or symptoms. Denies nasal or sinus congestion or discharge. Denies throat, tongue, or mouth swelling or difficulty swallowing. CARDIOVASCULAR: Denies chest pain. Denies palpitations or racing or irregular heart beat. Denies ankle edema. RESPIRATORY: Admits shortness of breath difficulty breathing GASTROINTESTINAL: Denies abdominal pain or distention. Denies nausea, vomiting , or diarrhea. Denies blood in vomitus, stools, or per rectum. Denies black, tarry stools. Denies constipation. GENITOURINARY: Denies difficulty urinating, painful urination, burning, frequency, blood in urine, or discharge. FEMALE GENITOURINARY: Denies vaginal bleeding, heavy or abnormal periods, irregular periods. Denies vaginal discharge or odor. MUSCULOSKELETAL: Denies back or neck pain or stiffness. Denies joint pain or swelling. SKIN: Denies rash, lesions or sores. HEMATOLOGIC : Denies easy bruising or bleeding. LYMPHATIC: Denies swollen, enlarged glands. NEUROLOGICAL: Denies confusion or altered mental status. Denies passing out or loss of consciousness. Denies dizziness or lightheadedness. Denies headache. Denies weakness or paralysis or loss of use of either side. Denies problems with gait or speech. Denies sensory loss, numbness, or tingling. Denies seizures. PSYCHIATRIC: Denies anxiety or stress. Denies depression, suicidal ideation, or homicidal ideation. ALL OTHER SYSTEMS REVIEWED AND NEGATIVE. PHYSICAL EXAMINATION: GENERAL: Chronically ill-appearing female dusky in significant respiratory distress HEAD: Atraumatic, normocephalic. EYES: Pupils equal round and reactive to light, extraocular movements intact, conjunctiva are normal. ENT: Nares patent, oropharynx clear without exudates. Moist mucous membranes. NECK: Normal range of motion, supple without lymphadenopathy LUNGS: Decreased breath sounds all throughout significant respiratory distress HEART: Tachycardic ABDOMEN: Soft, nontender, nondistended abdomen. No guarding, no rebound. No masses appreciated. Female : deferred Musculoskeletal: Normal range of motion, no pitting or edema. No cyanosis. NEUROLOGICAL: Cranial nerves grossly intact. Normal speech, normal gait. Normal sensory, motor exams PSYCH: Normal mood, normal affect. SKIN: Dusky Dictation was performed using [employer] voice recognition software Physical Exam - Vital signs Vitals: Temp Pulse Resp BP Pulse Ox 98.9 F 103 H 36 H 112/53 L 65 L 08/23/17 13:14 08/23/17 13:14 08/23/17 13:14 08/23/17 13:14 08/23/17 13:14 Course - Re-evaluation Re-evalutation: 08/23/17 14:52 On arrival patient is satting 65%, she is dusky very ill appearing in significant respiratory distress breathing very hard, patient was tried on breathing treatments but continues to desaturate and appear in significant respiratory distress Patient was subsequently intubated at her request, patient otherwise appears stable is now resting comfortably and will be admitted to the hospitalist service to the ICU - Vital Signs Vital signs: Temp Pulse Resp BP Pulse Ox 98.9 F 103 H 36 H 112/53 L 94 08/23/17 13:14 08/23/17 13:14 08/23/17 13:14 08/23/17 13:14 08/23/17 13:45 - Laboratory Result Diagrams: 08/23/17 13:32 08/23/17 13:32 Laboratory results interpreted by me: 08/23/17 13:32 WBC 11.3 H RBC 5.83 H Hct 47.1 H MCH 26.1 L RDW 17.8 H - Diagnostic Test Radiology reviewed: Image reviewed, Reports reviewed - EKG Interpretation by Mi EKG shows normal: Sinus rhythm, [place], Intervals, QRS Complexes Procedures - Intubation Orotracheal Time of Intubation: 13:44 Airway evaluation: Copious secretions Mallampati Classification: Class 3 Medications: Etomidate, Succinylcholine Intubation method: Orotracheal Blade type: [place] Blade size: 4 Equipment used: Other ETT size: 7.0 ETT secured at: Teeth ETT secured at (cm): 21 Breath Sounds after Intubation: Equal End tidal CO2 confirmed: No Post Intubation Xray: Yes Intubation Complications: No complications Critical Care Note - Critical Care Note Total time excluding time spent on procedures (mins): 79 Comments: 79 minutes of critical care time spent in direct contact evaluating and reevaluating the patient, treating symptoms, reviewing labs and studies and speaking with family and consultants excluding any procedures Discharge - Discharge Clinical Impression: COPD with exacerbation, Acute respiratory failure with hypoxia, INÉS ( obstructive sleep apnea) Diabetes mellitus type 2, controlled Qualifiers: Diabetes mellitus complication status: with unspecified complications Diabetes mellitus parts counterman insulin use: with parts counterman use Qualified Code(s): E11.8 - Type 2 diabetes mellitus with unspecified complications; Z79.4 - assisted ( current) use of insulin; Z79.4 - assisted (current) use of insulin; Z79.4 - assisted (current) use of insulin; Z79.4 - manager intermediate (current) use of insulin Respiratory failure Qualifiers: Chronicity: acute Respiratory failure complication: hypoxia Qualified Code(s): J96.01 - Acute respiratory failure with hypoxia
[2017-08-23] MEDS ORDERED: MIDAZOLAM 2 MG/2 ML INJ IV ONE ×2 (14:38→15:25)
[2017-08-23] MEDS ORDERED: NORMAL SALINE 1000 ML 1,000 ML IV ONE (14:39)
[2017-08-23] MEDS ORDERED: SUCCINYLCHOLINE CHLORIDE INJ 200 MG/10 ML VIAL IV ONE (14:54)
[2017-08-23] MEDS ORDERED: ACETAMINOPHEN 325 MG TABLET PO PRN (14:54)
--- NOTE | 2017-08-23 14:55 | RADIOLOGY REPORT (SQ) ---
EXAM DESCRIPTION: CHEST SINGLE VIEW COMPLETED DATE/TIME: 08/23/2017 2:15 pm REASON FOR STUDY: post intubation COMPARISON: 07/02/2017 EXAM PARAMETERS: NUMBER OF VIEWS: One view. TECHNIQUE: Single frontal radiographic view of the chest acquired. RADIATION DOSE: NA LIMITATIONS: None. FINDINGS: LUNGS AND PLEURA: No opacities, masses or pneumothorax. No pleural effusion. MEDIASTINUM AND HILAR STRUCTURES: No masses. Contour normal. HEART AND VASCULAR STRUCTURES: Heart normal in size. Normal vasculature. BONES: No acute findings. HARDWARE: Port-A-Cath is unchanged in position. Patient is status post median sternotomy. Endotrach eal tube is now identified with its tip the level of the thoracic inlet. OTHER: No other significant finding. IMPRESSION: Endotracheal tube with its tip at the level of the thoracic inlet. No acute consolidati ons or pleural effusions are identified. Other findings as noted above TECHNICAL DOCUMENTATION: JOB ID: [id number] [employer]- All Rights Reserved
[2017-08-23] MEDS ORDERED: PHARMACY COMMUNICATION ORDER MC NR (15:00)
[2017-08-23] MEDS ORDERED: ACETAMINOPHEN 325 MG TABLET NG PRN (15:30)
--- NOTE | 2017-08-23 16:02 | RADIOLOGY REPORT (SQ) ---
EXAM DESCRIPTION: KUB/ABDOMEN (SINGLE VIEW) COMPLETED DATE/TIME: 08/23/2017 3:28 pm REASON FOR STUDY: Check Placement of NG Tube COMPARISON: None. NUMBER OF VIEWS: One view. TECHNIQUE: Supine radiographic image of the lower chest and upper abdomen acquired for NG placement . LIMITATIONS: None. FINDINGS: NG tube is present with its tip in the body of the stomach. Multiple surgical clips in th e upper abdomen. Status post vertebroplasty T12. Possible mild increased density in the left lung b ase although study is not optimal for evaluating the lungs. IMPRESSION: Tip of the NG tube is in the body of the stomach. TECHNICAL DOCUMENTATION: JOB ID: [id number] [employer]- All Rights Reserved
[2017-08-23] MEDS: MAGNESIUM SULFATE/D5W 1 GM/100 ML RTUPB IV SCH ×2 (16:27→18:03)
[2017-08-23 16:31] LABS: ARTERIAL BLOOD BASE EXCESS 1.9 mmol/L; ARTERIAL BLOOD H2CO3 1.54 mmol/L (1.05-1.35); ARTERIAL BLOOD HCO3 28.3 mmol/L (20-26); ARTERIAL BLOOD O2 SATURATION 95.4 % (94-98); ARTERIAL BLOOD PCO2 51.1 mmHg (35-45); ARTERIAL BLOOD PH 7.36 (7.35-7.45); ARTERIAL BLOOD PO2 80.9 mmHg (80-100); ARTERIAL BLOOD TOTAL CO2 29.9 mmol/L (21-25)
[2017-08-23 16:37] LABS: APPEARANCE,URINE SLIGHTLY-CLOUDY; BILIRUBIN,URINE NEGATIVE (NEGATIVE); COLOR,URINE YELLOW; GLUCOSE, URINE NEGATIVE (NEGATIVE); KETONES,URINE NEGATIVE (NEGATIVE); LEUKOCYTE ESTERASE,URINE TRACE (NEGATIVE); NITRITE,URINE NEGATIVE (NEGATIVE); PROTEIN,URINE NEGATIVE (NEGATIVE); URINE SPECIFIC GRAVITY 1.006; UROBILINOGEN,URINE NEGATIVE mg/dL (<2.0)
[2017-08-23] MEDS ORDERED: SUCCINYLCHOLINE CHLORIDE INJ 200 MG/10 ML VIAL ONE (16:39)
[2017-08-23 16:54] LABS: ARTERIAL BLOOD FIO2 70%
[2017-08-23] MEDS ORDERED: INFLUENZA ADLT QUAD (36MOS+) 2017-18 VAC 0.5 ML SYR IM PRN (17:21)
--- NOTE | 2017-08-23 17:34 | PDOC H&P ---
History of Present Illness Admission Date/PCP: 08/23/17 15:24 TYSON ROLDAN MD Patient complains of: Shortness of breath History of Present Illness: DAGO GRAFF is a 72 year old female with past medical history of end-stage renal failure oxygen dependent with ongoing tobacco dependence and CPAP at night who has recently declined hospice and/or palliative care. Patient presents with oxygen saturations of 65% and cyanosis with prior 48 hours hours of severe shortness of breath. She is intubated for acute on chronic respiratory failure and referred to the hospitalist for admission. There are no historians available at bedside. She appears comfortable on current ventilator settings. Past Medical History Cardiac Medical History: Reports: Coronary Artery Disease - CABG, Hyperlipidema - zocor , Hypertension Pulmonary Medical History: Reports: Asthma, Bronchitis, Chronic Obstructive Pulmonary Disease (COPD), Pneumonia - MRSA 2014 , Sleep Apnea - bipap , Tuberculosis - +PPD in s - on meds x 1 year Endocrine Medical History: Reports: Diabetes Mellitus Type 1, Diabetes Mellitus Type 2 GI Medical History: Reports: Gastroesophageal Reflux Disease Musculoskeltal Medical History: Reports: Arthritis Psychiatric Medical History: Reports: Depression Hematology: Denies: Anemia, Hemophilia, Sickle Cell Disease Infectious Medical History: Reports: 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 MRSA pneumonia, 2014 Past Surgical History Past Surgical History: Reports: Appendectomy, Cholecystectomy, Coronary Artery Bypass Graft - 2008 x 2 grafts , Hysterectomy, Orthopedic Surgery - Left footsurgery, cyst removal from left hand, Tonsillectomy Denies: Amputation Social History Information Source: [facility] Personnel, [facility] Records Smoking Status: Current Every Day Smoker Frequency of Alcohol Use: None Hx Recreational Drug Use: No Drugs: None Hx Prescription Drug Abuse: No - Advance Directive Resuscitation Status: Full Code Family History Family History: CAD, DM, Hypertension Parental Family History Reviewed: Yes - Unobtainable Children Family History Reviewed: Yes Sibling(s) Family History Reviewed.: Yes - Unobtainable unobtainable Medication/Allergy Home Medications: Albuterol Sulfate [Ventolin HFA MDI 18 GM] 1 puff IH Q4HP PRN 08/23/17 Ascorbic Acid [Vitamin C 500 mg Tablet] 500 mg PO BID 08/23/17 Aspirin [Ecotrin 81 mg EC Tablet] 81 mg PO DAILY 08/23/17 Atorvastatin Calcium [Lipitor 40 mg Tablet] 40 mg PO QHS 12/29/17 Budesonide [Pulmicort Neb 0.5 mg/2 ml Ampul] 2 ml NEB Q12 08/23/17 Cholecalciferol (Vitamin D3) [Vitamin D3] 5,000 unit PO DAILY 08/23/17 Cyanocobalamin (Vitamin B-12) [Vitamin B-12 500 mcg Tablet] 500 mcg PO BID 08/23 Esomeprazole Magnesium [Nexium] 40 mg PO DAILY 08/23/17 Fluticasone/Salmeterol [Advair 500-50 Diskus 14 Dose/Diskus] 1 puff IH Q12 08/23 Insulin Glargine,Hum.rec.anlog [Lantus Solostar] 15 units SQ QHS 08/23/17 Ipratropium/Albuterol Sulfate [Iprat-Albut 0.5-3(2.5) mg/3 ml] 3 ml NEB Q6 08/23 Iron Ps Complex/B12/Folic Acid [Poly-Iron 150 Forte Capsule] 1 cap PO BID Melatonin [Melatin] 3 mg PO QHS 08/23/17 Metoprolol Succinate [Toprol Xl 25 mg Tab.sr] 25 mg PO Q12 08/23/17 Nitroglycerin [Nitro-Dur 10 mg (0.4MG/Hr) Transdermal Patch] 1 patch TOP DAILY 08/23/17 Oxycodone HCl/Acetaminophen [Endocet 10-325 mg Tablet] 1 tab PO Q6HP PRN Potassium Chloride [Klor-Con 10 Meq Tablet.sa] 10 meq PO DAILY 08/23/17 Pregabalin [Lyrica] 50 mg PO Q8 08/23/17 Ranolazine [Ranexa 500 mg Tab.sr] 500 mg PO Q12 08/23/17 Roflumilast [Daliresp 500 mcg Tablet] 500 mcg PO QAM 08/23/17 Ropinirole HCl [Requip 2 mg Tablet] 2 mg PO QHS 08/23/17 Tiotropium [place] [Spiriva Handihaler 5 Cap/Kit (18 Mcg/Cap)] 1 puff IH DAILY 08/23/17 Torsemide [Demadex 20 mg Tablet] 20 mg PO QAM 08/23/17 Allergies/Adverse Reactions: vancomycin Allergy (Verified 07/02/17 10:56) Generalized Itching levofloxacin Adverse Reaction (Verified 07/02/17 10:56) Diarrhea linezolid [From Zyvox] Adverse Reaction (Verified 07/02/17 10:56) Diarrhea Review of Systems ROS unobtainable: Due to mental status Physical Exam Vital Signs: Temp Pulse Resp BP Pulse Ox 100.6 F H 85 20 136/54 H 99 08/23/17 16:54 08/23/17 16:54 08/23/17 16:54 08/23/17 16:54 08/23/17 16:54 Intake & Output 08/22/17 08/23/17 08/24/17 11:59 11:59 11:59 Weight 79.3 kg General appearance: PRESENT: disheveled, mild distress Head exam: PRESENT: other - Patient has ecchymosis of the bridge of the nose and eyes bilaterally.. ABSENT: atraumatic Eye exam: PRESENT: conjunctiva pink, EOMI, PERRLA. ABSENT: scleral icterus Ear exam: PRESENT: normal external ear exam Mouth exam: PRESENT: moist, tongue midline Neck exam: ABSENT: carotid bruit, JVD, lymphadenopathy, thyromegaly Respiratory exam: PRESENT: accessory muscle use, prolonged expiratory phas, symmetrical, tachypnea - Dr. Esteban Cardiovascular exam: PRESENT: tachycardia Pulses: PRESENT: normal dorsalis pedis pul Vascular exam: PRESENT: normal capillary refill GI/Abdominal exam: PRESENT: normal bowel sounds, soft. ABSENT: distended, guarding, mass, organolmegaly, rebound, tenderness Rectal exam: PRESENT: deferred Extremities exam: PRESENT: full ROM. ABSENT: calf tenderness, clubbing, pedal edema Neurological exam: PRESENT: altered, awake, CN II-XII grossly intact. ABSENT: motor sensory deficit Psychiatric exam: PRESENT: appropriate affect, normal mood. ABSENT: homicidal ideation, suicidal ideation Skin exam: PRESENT: dry, intact, warm, other - Bridge of the nose and bilateral periorbital ecchymosis. ABSENT: cyanosis, rash Results Laboratory Results: 08/23/17 08/23/17 15:45 15:45 Carbonic Acid 1.54 H HCO3/H2CO3 Ratio 18:1 ABG pH 7.36 ABG pCO2 51.1 H ABG pO2 80.9 ABG HCO3 28.3 H ABG O2 Saturation 95.4 ABG Base Excess 1.9 FiO2 70% Urine Color YELLOW Urine Appearance SLIGHTLY-CLOUDY Urine pH 6.0 Ur Specific Britt 1.006 Urine Protein NEGATIVE Urine Glucose (UA) NEGATIVE Urine Ketones NEGATIVE Urine Blood NEGATIVE Urine Nitrite NEGATIVE Ur Leukocyte Esterase TRACE H Urine WBC (Auto) 37 Urine RBC (Auto) 2 Impressions: Chest X-Ray 08/23/17 00:00 IMPRESSION: Endotracheal tube with its tip at the level of the thoracic inlet. No acute consolidations or pleural effusions are identified. Other findings as noted above KUB X-Ray 08/23/17 14:58 IMPRESSION: Tip of the NG tube is in the body of the stomach. Assessment & Plan - Diagnosis (1) Acute respiratory failure with hypoxia Is this a current diagnosis for this admission?: Yes Plan: ICU admission for intubation, follow-up ABG. Concern for normal chemistry given history of supposedly chronic respiratory failure. Will obtain pulmonology consult given uncertainty of over ventilator requirement. 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 - Time Time Spent: 30 to 50 Minutes - Inpatient Certification Medical Necessity: Need Close Monitoring Due to Risk of Patient Decompensation
[2017-08-23] MEDS: PROPOFOL 100 ML IV PRN ×2 (18:01→22:51)
[2017-08-23] MEDS: CEFTRIAXONE 1 GM/D5W RTU 1 GM/50 ML RTUPB IV SCH (18:03)
[2017-08-23] MEDS: NORMAL SALINE 1000 ML 1,000 ML IV SCH (18:10)
[2017-08-23] MEDS ORDERED: LEVALBUTEROL HCL NEB 1.25 MG/3 ML AMPUL NEB PRN (18:34)
[2017-08-23] MEDS ORDERED: GLUCAGON,HUMAN RECOMB 1 MG INJ IM PRN (20:01)
[2017-08-23] MEDS ORDERED: DEXTROSE 50%-WATER 25 GM/50 ML DISP.SYRIN IV PRN ×2 (20:01)
[2017-08-23] MEDS ORDERED: DEXTROSE 40% GEL 15 GM TUBE PO PRN ×2 (20:01)
[2017-08-23] MEDS: IPRATROPIUM/ALBUTEROL 0.5-2.5 MG/3 ML AMPUL NEB SCH (20:49)
[2017-08-23] MEDS ORDERED: BUDESONIDE NEB 0.5 MG/2 ML AMPUL NEB SCH (22:00)
[2017-08-23] MEDS: ATORVASTATIN CALCIUM 40 MG TABLET NG SCH (22:49)
[2017-08-23] MEDS: GUAIFENESIN 600 MG TABLET.SA PO SCH (22:50)
[2017-08-23] MEDS: METHYLPREDNISOLONE INJ 125 MG/2 ML SDV IV SCH (22:50)
[2017-08-23] MEDS: HEPARIN SOD (PORCINE) 5,000 UNIT/ML 1 ML SYRINGE SUBCUT SCH (22:52)
[2017-08-23] MEDS: FLUTICASONE/SALMETEROL DISKUS 500-50 MCG/DOSE IH SCH (22:54)
[2017-08-23] MEDS ORDERED: INSULIN GLARGINE,HUM.REC.ANLOG 300 UNIT/3 ML INSULN.PEN SUBCUT SCH (23:00)
[2017-08-24] MEDS: METOPROLOL SUCCINATE 25 MG TAB.SR.24H PO SCH ×2 (00:08→10:39)
[2017-08-24] MEDS: IPRATROPIUM/ALBUTEROL 0.5-2.5 MG/3 ML AMPUL NEB SCH ×4 (02:05→20:21)
[2017-08-24] MEDS: NORMAL SALINE 1000 ML 1,000 ML IV SCH (03:42)
[2017-08-24] MEDS: PROPOFOL 100 ML IV PRN ×6 (03:42→22:59)
[2017-08-24] MEDS: FENTANYL CITRATE INJ/PF 100 MCG/2 ML AMPUL IV PRN ×2 (04:03→09:48)
[2017-08-24] MEDS: LANSOPRAZOLE 30 MG TAB.RAP.DR PO SCH (06:04)
[2017-08-24] MEDS: PREGABALIN 50 MG CAPSULE NG SCH ×3 (06:04→21:53)
[2017-08-24] MEDS: HEPARIN SOD (PORCINE) 5,000 UNIT/ML 1 ML SYRINGE SUBCUT SCH ×3 (06:05→21:54)
[2017-08-24] MEDS: METHYLPREDNISOLONE INJ 125 MG/2 ML SDV IV SCH ×3 (06:05→21:53)
--- NOTE | 2017-08-24 06:07 | RADIOLOGY REPORT (SQ) ---
EXAM DESCRIPTION: CHEST SINGLE VIEW CLINICAL HISTORY: Intubated patient COMPARISON: 08/23/2017 FINDINGS: Single frontal view of the chest. NG tube with tip below the diaphragm. Endotracheal tube with tip 4 cm above the vianney. Right IJ Mediport with tip in the SVC. Cardiomegaly. Likely small bilateral pleural effusions. No pneumothorax. Leads overlie the chest. No new osseous abnormalities. Pulmonary vascular congestion. IMPRESSION: 1. Cardiomegaly with pulmonary vascular congestion and likely small bilateral pleural effusions. Pulmonary vascular congestion is mildly more prominent on today's study. Tubes and lines as detailed above.
[2017-08-24 06:37] LABS: ABSOLUTE LYMPHOCYTES (AUTO) 0.7 10^3/uL (0.5-4.7); ABSOLUTE NEUT (AUTO) 6.1 10^3/uL (1.7-8.2); HEMATOCRIT 40.9 % (36.0-47.0); LYMPHOCYTES % (AUTO) 9.9 % (13-45); MEAN CORPUSCULAR HGB CONC 31.6 g/dL (32.0-36.0); MEAN CORPUSCULAR VOLUME 82 fl (80-97); MONOCYTES % (AUTO) 0.7 % (3-13); PLATELET COUNT 185 10^3/uL (150-450); RED BLOOD COUNT 4.99 10^6/uL (3.72-5.28); RED CELL DISTRIBUTION WIDTH 18.1 % (11.5-14.0); SEGMENTED NEUTROPHILS % (AUTO) 89.4 % (42-78); TOTAL CELLS COUNTED % (AUTO) 100 %; WHITE BLOOD COUNT 6.8 10^3/uL (4.0-10.5)
[2017-08-24 06:42] LABS: HEMOGLOBIN 12.9 g/dL (12.0-15.5)
[2017-08-24 06:43] LABS: ANION GAP 13 (5-19); BLOOD UREA NITROGEN 14 mg/dL (7-20); CALCIUM 9.1 mg/dL (8.4-10.2); CARBON DIOXIDE 23 mmol/L (22-30); CHLORIDE 107 mmol/L (98-107); GLUCOSE 161 mg/dL (75-110); MAGNESIUM 2.2 mg/dL (1.6-2.3); POTASSIUM 3.5 mmol/L (3.6-5.0); SODIUM 142.5 mmol/L (137-145); TRIGLYCERIDES 144 mg/dL (<150)
[2017-08-24 07:07] LABS: ARTERIAL BLOOD BASE EXCESS -4.2 mmol/L; ARTERIAL BLOOD FIO2 60%; ARTERIAL BLOOD H2CO3 1.41 mmol/L (1.05-1.35); ARTERIAL BLOOD HCO3 22.4 mmol/L (20-26); ARTERIAL BLOOD O2 SATURATION 93.1 % (94-98); ARTERIAL BLOOD PCO2 46.9 mmHg (35-45); ARTERIAL BLOOD PO2 73.2 mmHg (80-100); ARTERIAL BLOOD TOTAL CO2 23.8 mmol/L (21-25)
[2017-08-24] MEDS ORDERED: BUDESONIDE NEB 0.5 MG/2 ML AMPUL NEB ONE (09:00)
--- NOTE | 2017-08-24 09:35 | PDOC CONSULTATION ---
Consultation Consult Date: 08/24/17 Attending physician:: JUAN FRANCISCO TARIQ Consult reason:: acute/chronic resp failure History of Present Illness Admission Date/PCP: 08/23/17 15:24 TYSON ROLDAN MD History of Present Illness: DAGO GRAFF is a 72 year old female with past medical history of end-stage renal failure oxygen dependent with ongoing tobacco dependence and CPAP at night who has recently declined hospice and/or palliative care. Patient presents with oxygen saturations of 65% and cyanosis with prior 48 hours hours of severe shortness of breath.Patient currently intubated and sedated. Past Medical History Cardiac Medical History: Reports: Coronary Artery Disease - CABG, Hyperlipidema - zocor , Hypertension Pulmonary Medical History: Reports: Asthma, Bronchitis, Chronic Obstructive Pulmonary Disease (COPD), Pneumonia - MRSA 2014 , Sleep Apnea - bipap , Tuberculosis - +PPD in s - on meds x 1 year EENT Medical History: Denies: Ears, Nose Neurological Medical History: Denies: Multiple Sclerosis Endocrine Medical History: Reports: Diabetes Mellitus Type 1, Diabetes Mellitus Type 2 Renal/ Medical History: Reports: End Stage Renal Disease Malignancy Medical History: Reports: None GI Medical History: Reports: Gastroesophageal Reflux Disease Denies: Crohn's Disease, Ulcerative Colitis Musculoskeltal Medical History: Reports: Arthritis Skin Medical History: Reports: Psoriasis Psychiatric Medical History: Reports: Depression, Tobacco Dependency Traumatic Medical History: Denies: Traumatic Brain Injury Hematology: Denies: Anemia, Hemophilia, Sickle Cell Disease Infectious Medical History: Reports: Hepatitis B, Hepatitis C, 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, 2014 Past Surgical History Past Surgical History: Reports: Appendectomy, Cholecystectomy, Coronary Artery Bypass Graft - 2008 x 2 grafts , Hysterectomy, Orthopedic Surgery - Left footsurgery, cyst removal from left hand, Tonsillectomy Denies: Amputation Social History Information Source: [facility] Records Smoking Status: Current Every Day Smoker Frequency of Alcohol Use: None Hx Recreational Drug Use: No Drugs: None Hx Prescription Drug Abuse: No - Advance Directive Resuscitation Status: Full Code Family History Family History: CAD, DM, Hypertension Parental Family History Reviewed: No Children Family History Reviewed: No Sibling(s) Family History Reviewed.: No Medication/Allergy Home Medications: Albuterol Sulfate [Ventolin HFA MDI 18 GM] 1 puff IH Q4HP PRN 08/23/17 Ascorbic Acid [Vitamin C 500 mg Tablet] 500 mg PO BID 08/23/17 Aspirin [Ecotrin 81 mg EC Tablet] 81 mg PO DAILY 08/23/17 Atorvastatin Calcium [Lipitor 40 mg Tablet] 40 mg PO QHS 08/23/17 Budesonide [Pulmicort Neb 0.5 mg/2 ml Ampul] 2 ml NEB Q12 08/23/17 Cholecalciferol (Vitamin D3) [Vitamin D3] 5,000 unit PO DAILY 08/23/17 Cyanocobalamin (Vitamin B-12) [Vitamin B-12 500 mcg Tablet] 500 mcg PO BID 08/23 Esomeprazole Magnesium [Nexium] 40 mg PO DAILY 08/23/17 Fluticasone/Salmeterol [Advair 500-50 Diskus 14 Dose/Diskus] 1 puff IH Q12 08/23 Insulin Glargine,Hum.rec.anlog [Lantus Solostar] 15 units SQ QHS 08/23/17 Ipratropium/Albuterol Sulfate [Iprat-Albut 0.5-3(2.5) mg/3 ml] 3 ml NEB Q6 08/23 Iron Ps Complex/B12/Folic Acid [Poly-Iron 150 Forte Capsule] 1 cap PO BID Melatonin [Melatin] 3 mg PO QHS 08/23/17 Metoprolol Succinate [Toprol Xl 25 mg Tab.sr] 25 mg PO Q12 08/23/17 Nitroglycerin [Nitro-Dur 10 mg (0.4MG/Hr) Transdermal Patch] 1 patch TOP DAILY 08/23/17 Oxycodone HCl/Acetaminophen [Endocet 10-325 mg Tablet] 1 tab PO Q6HP PRN Potassium Chloride [Klor-Con 10 Meq Tablet.sa] 10 meq PO DAILY 08/23/17 Pregabalin [Lyrica] 50 mg PO Q8 08/23/17 Ranolazine [Ranexa 500 mg Tab.sr] 500 mg PO Q12 08/23/17 Roflumilast [Daliresp 500 mcg Tablet] 500 mcg PO QAM 08/23/17 Ropinirole HCl [Requip 2 mg Tablet] 2 mg PO QHS 08/23/17 Tiotropium [place] [Spiriva Handihaler 5 Cap/Kit (18 Mcg/Cap)] 1 puff IH DAILY 08/23/17 Torsemide [Demadex 20 mg Tablet] 20 mg PO QAM 08/23/17 Allergies/Adverse Reactions: vancomycin Allergy (Verified 07/02/17 10:56) Generalized Itching levofloxacin Adverse Reaction (Verified 07/02/17 10:56) Diarrhea linezolid [From Zyvox] Adverse Reaction (Verified 07/02/17 10:56) Diarrhea Review of Systems ROS unobtainable: Due to endotracheal tube Physical Exam Vital Signs: Temp Pulse Resp BP Pulse Ox 96.8 F L 81 24 H 115/48 L 96 08/24/17 08:00 08/24/17 08:00 08/24/17 08:00 08/24/17 08:00 08/24/17 08:00 Intake & Output 08/23/17 08/24/17 08/25/17 06:59 06:59 06:59 Intake Total 2077 Output Total 585 60 Balance 1492 -60 Weight 80.9 kg General appearance: PRESENT: no acute distress, disheveled. ABSENT: mild distress, morbidly obese, severe distress Head exam: PRESENT: atraumatic, normocephalic Eye exam: PRESENT: conjunctiva pale. ABSENT: conjunctival injection, conjunctiva pink, EOMI, nystagmus, periorbital swelling, scleral icterus Mouth exam: PRESENT: dry mucosa, neck supple, tongue midline, other - ET tube. ABSENT: laceration, moist Neck exam: ABSENT: carotid bruit, JVD, lymphadenopathy, thyromegaly, tracheal deviation, tracheostomy Respiratory exam: PRESENT: crackles, decreased breath sounds, prolonged expiratory phas, rales, rhonchi, symmetrical, unlabored, wheezes. ABSENT: accessory muscle use, chest wall tenderness, clear to auscultation [place], retraction, stridor, tachypnea Cardiovascular exam: PRESENT: RRR, +S1, +S2 Pulses: PRESENT: normal radial pulses GI/Abdominal exam: PRESENT: normal bowel sounds, soft. ABSENT: distended, guarding, mass, organolmegaly, rebound, tenderness Extremities exam: ABSENT: clubbing, joint swelling Musculoskeletal exam: ABSENT: deformity, dislocation Neurological exam: PRESENT: awake Skin exam: PRESENT: dry, warm Results Laboratory Results: 08/24/17 06:10 08/24/17 06:10 08/23/17 08/23/17 08/24/17 15:45 15:45 06:10 WBC RBC Hgb Hct MCV MCH MCHC RDW Plt Count Seg Neutrophils % Lymphocytes % Monocytes % Eosinophils % Basophils % Absolute Neutrophils Absolute Lymphocytes Absolute Monocytes Absolute Eosinophils Absolute Basophils Carbonic Acid 1.54 H HCO3/H2CO3 Ratio 18:1 ABG pH 7.36 ABG pCO2 51.1 H ABG pO2 80.9 ABG HCO3 28.3 H ABG O2 Saturation 95.4 ABG Base Excess 1.9 FiO2 70% Sodium 142.5 Potassium 3.5 L Chloride 107 Carbon Dioxide 23 Anion Gap 13 BUN 14 Creatinine 0.68 Est GFR ( Amer) > 60 Est GFR (Non-Af Amer) > 60 Glucose 161 H Calcium 9.1 Magnesium 2.2 Triglycerides 144 Urine Color YELLOW Urine Appearance SLIGHTLY-CLOUDY Urine pH 6.0 Ur Specific [place] 1.006 Urine Protein NEGATIVE Urine Glucose (UA) NEGATIVE Urine Ketones NEGATIVE Urine Blood NEGATIVE Urine Nitrite NEGATIVE Ur Leukocyte Esterase TRACE H Urine WBC (Auto) 37 Urine RBC (Auto) 2 08/24/17 08/24/17 06:10 06:45 WBC 6.8 RBC 4.99 Hgb 12.9 D Hct 40.9 MCV 82 MCH 26.0 L MCHC 31.6 L RDW 18.1 H Plt Count 185 Seg Neutrophils % 89.4 H Lymphocytes % 9.9 L Monocytes % 0.7 L Eosinophils % 0.0 Basophils % 0.0 Absolute Neutrophils 6.1 Absolute Lymphocytes 0.7 Absolute Monocytes 0.0 L Absolute Eosinophils 0.0 Absolute Basophils 0.0 Carbonic Acid 1.41 H HCO3/H2CO3 Ratio 15:1 ABG pH 7.30 L ABG pCO2 46.9 H ABG pO2 73.2 L ABG HCO3 22.4 ABG O2 Saturation 93.1 L ABG Base Excess -4.2 FiO2 60% Sodium Potassium Chloride Carbon Dioxide Anion Gap BUN Creatinine Est GFR ( Amer) Est GFR (Non-Af Amer) Glucose Calcium Magnesium Triglycerides Urine Color Urine Appearance Urine pH Ur Specific [place] Urine Protein Urine Glucose (UA) Urine Ketones Urine Blood Urine Nitrite Ur Leukocyte Esterase Urine WBC (Auto) Urine RBC (Auto) 08/24/17 06:30 NT-Pro-B Natriuret Pep 795 Impressions: KUB X-Ray 08/23/17 14:58 IMPRESSION: Tip of the NG tube is in the body of the stomach. Chest X-Ray 08/24/17 06:00 IMPRESSION: 1. Cardiomegaly with pulmonary vascular congestion and likely small bilateral pleural effusions. Pulmonary vascular congestion is mildly more prominent on today's study. Tubes and lines as detailed above. Assessment & Plan - Diagnosis (1) Acute respiratory failure with hypoxia Is this a current diagnosis for this admission?: Yes Plan: on home O2 support as needed (2) INÉS (obstructive sleep apnea) Is this a current diagnosis for this admission?: Yes Plan: after extubation NIPPV (3) Acute and chronic respiratory failure with hypercapnia Is this a current diagnosis for this admission?: Yes Plan: support ventilate (4) GERD (gastroesophageal reflux disease) Qualifiers: Qualified Code(s): K21.9 - Gastro-esophageal reflux disease without esophagitis Is this a current diagnosis for this admission?: Yes Plan: ppi (5) Opiate dependence, continuous Is this a current diagnosis for this admission?: Yes Plan: home meds (6) CHF (congestive heart failure) Qualifiers: Qualified Code(s): I50.9 - Heart failure, unspecified Is this a current diagnosis for this admission?: Yes Plan: elevated bnp may be result of age etc but declining (7) Pulmonary hypertension Is this a current diagnosis for this admission?: Yes Plan: INÉS chronic hypoxia (8) Tobacco dependency Is this a current diagnosis for this admission?: Yes Plan: transdermal nicotine - Time Total Critical Time (Minutes): 60
--- NOTE | 2017-08-24 09:44 | PDOC PROGRESS REPORT ---
Subjective Progress Note for:: 08/24/17 Subjective:: Sedated Reason For Visit: Ms. Perez is a 72-year-old female with a past medical history significant for oxygen dependent COPD who presented to the emergency department with shortness of breath. Unfortunately, she still smokes cigarettes. She has been intubated previously. She is on 5 L via nasal cannula during the day. She wears CPAP at night. She reportedly had a productive cough. She had O2 saturation around 65% . She was subsequently intubated at her request in the emergency department. She was admitted to the ICU. Pulmonary, Dr. Aguilar was consulted for ventilator management. 08/24/2017 no events overnight. She remains sedated and on the ventilator. Physical Exam Vital Signs: Temp Pulse Resp BP Pulse Ox 96.8 F L 81 24 H 115/48 L 96 08/24/17 08:00 08/24/17 08:00 08/24/17 08:00 08/24/17 08:00 08/24/17 08:00 Intake & Output 08/23/17 08/24/17 08/25/17 06:59 06:59 06:59 Intake Total 2077 Output Total 585 60 Balance 1492 -60 Weight 80.9 kg General appearance: PRESENT: obese Head exam: PRESENT: atraumatic, normocephalic Respiratory exam: PRESENT: symmetrical, unlabored, other - Coarse breath sounds bilaterally. ABSENT: accessory muscle use Cardiovascular exam: PRESENT: RRR. ABSENT: diastolic murmur, rubs, systolic murmur GI/Abdominal exam: PRESENT: hypoactive bowel sounds, soft. ABSENT: distended, guarding, mass, organolmegaly, rebound, tenderness Rectal exam: PRESENT: deferred Extremities exam: ABSENT: pedal edema Musculoskeletal exam: PRESENT: normal inspection Neurological exam: PRESENT: other - Sedated Results Laboratory Results: 08/24/17 06:10 08/24/17 06:10 08/23/17 08/23/17 08/24/17 15:45 15:45 06:10 WBC RBC Hgb Hct MCV MCH MCHC RDW Plt Count Seg Neutrophils % Lymphocytes % Monocytes % Eosinophils % Basophils % Absolute Neutrophils Absolute Lymphocytes Absolute Monocytes Absolute Eosinophils Absolute Basophils Carbonic Acid 1.54 H HCO3/H2CO3 Ratio 18:1 ABG pH 7.36 ABG pCO2 51.1 H ABG pO2 80.9 ABG HCO3 28.3 H ABG O2 Saturation 95.4 ABG Base Excess 1.9 FiO2 70% Sodium 142.5 Potassium 3.5 L Chloride 107 Carbon Dioxide 23 Anion Gap 13 BUN 14 Creatinine 0.68 Est GFR ( Amer) > 60 Est GFR (Non-Af Amer) > 60 Glucose 161 H Calcium 9.1 Magnesium 2.2 Triglycerides 144 Urine Color YELLOW Urine Appearance SLIGHTLY-CLOUDY Urine pH 6.0 Ur Specific [place] 1.006 Urine Protein NEGATIVE Urine Glucose (UA) NEGATIVE Urine Ketones NEGATIVE Urine Blood NEGATIVE Urine Nitrite NEGATIVE Ur Leukocyte Esterase TRACE H Urine WBC (Auto) 37 Urine RBC (Auto) 2 08/24/17 08/24/17 06:10 06:45 WBC 6.8 RBC 4.99 Hgb 12.9 D Hct 40.9 MCV 82 MCH 26.0 L MCHC 31.6 L RDW 18.1 H Plt Count 185 Seg Neutrophils % 89.4 H Lymphocytes % 9.9 L Monocytes % 0.7 L Eosinophils % 0.0 Basophils % 0.0 Absolute Neutrophils 6.1 Absolute Lymphocytes 0.7 Absolute Monocytes 0.0 L Absolute Eosinophils 0.0 Absolute Basophils 0.0 Carbonic Acid 1.41 H HCO3/H2CO3 Ratio 15:1 ABG pH 7.30 L ABG pCO2 46.9 H ABG pO2 73.2 L ABG HCO3 22.4 ABG O2 Saturation 93.1 L ABG Base Excess -4.2 FiO2 60% Sodium Potassium Chloride Carbon Dioxide Anion Gap BUN Creatinine Est GFR ( Amer) Est GFR (Non-Af Amer) Glucose Calcium Magnesium Triglycerides Urine Color Urine Appearance Urine pH Ur Specific [place] Urine Protein Urine Glucose (UA) Urine Ketones Urine Blood Urine Nitrite Ur Leukocyte Esterase Urine WBC (Auto) Urine RBC (Auto) 08/24/17 06:30 NT-Pro-B Natriuret Pep 795 Impressions: KUB X-Ray 08/23/17 14:58 IMPRESSION: Tip of the NG tube is in the body of the stomach. Chest X-Ray 08/24/17 06:00 IMPRESSION: 1. Cardiomegaly with pulmonary vascular congestion and likely small bilateral pleural effusions. Pulmonary vascular congestion is mildly more prominent on today's study. Tubes and lines as detailed above. Assessment & Plan - Diagnosis (1) Acute respiratory failure with hypoxia Is this a current diagnosis for this admission?: Yes Plan: Vent and COPD management per pulmonary. 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 Her blood sugars are fairly well controlled. Continue sliding scale for now. (4) INÉS (obstructive sleep apnea) Is this a current diagnosis for this admission?: Yes Plan: Resume CPAP when she is off the ventilator. (5) Opiate dependence, continuous Is this a current diagnosis for this admission?: Yes Plan: She is normally on oxycodone/acetaminophen at home for pain. Currently, she is on fentanyl IV as needed. (6) Hypokalemia Is this a current diagnosis for this admission?: Yes Plan: Replace as needed. Mag is normal. - Time Time Spent with patient: 25-34 minutes Medications reviewed and adjusted accordingly: Yes Anticipated discharge: Home - Inpatient Certification Based on my medical assessment, after consideration of the patient's comorbidities, presenting symptoms, or acuity I expect that the services needed warrant INPATIENT care.: Yes I certify that my determination is in accordance with my understanding of Medicare's requirements for reasonable and necessary INPATIENT services [42 CFR 412.3e].: Yes Medical Necessity: Failure to Improve With Outpatient Therapy, Need Close Monitoring Due to Risk of Patient Decompensation, Risk of Complication if Not Cared For in Hospital
[2017-08-24] MEDS: ASPIRIN 81 MG TABLET, ENT COATED PO SCH (09:48)
[2017-08-24] MEDS: ASCORBIC ACID 500 MG TABLET NG SCH ×2 (09:49→17:11)
[2017-08-24] MEDS: GUAIFENESIN 600 MG TABLET.SA PO SCH ×2 (09:49→21:53)
[2017-08-24] MEDS: LACTOBACILLUS ACIDOPHILUS 250 MG TAB NG SCH ×2 (09:49→17:11)
[2017-08-24] MEDS: AZITHROMYCIN 500 MG in DEXTROSE 5%-WATER 250 ML IV SCH (09:58)
[2017-08-24] MEDS: NITROGLYCERIN 10 MG (0.4 MG/HR) PATCH.TD24 TOP SCH (09:59)
[2017-08-24] MEDS: FLUTICASONE/SALMETEROL DISKUS 500-50 MCG/DOSE IH SCH (10:07)
[2017-08-24] MEDS: NICOTINE 14 MG/24 HR PATCH.TD24 TD SCH (10:57)
[2017-08-24] MEDS: MIDAZOLAM 2 MG/2 ML INJ IV PRN ×2 (10:57→15:55)
[2017-08-24] MEDS: POTASSI CL 20 MEQ/50 ML RIDER 20 MEQ/50 ML RTUPB IV SCH ×3 (10:57→15:17)
[2017-08-24] MEDS: INSULIN LISPRO 100 UNIT/ML 3 ML VIAL SUBCUT PRN ×2 (12:07→17:12)
[2017-08-24] MEDS: OXYCODONE HCL IR 5 MG TABLET NG PRN (13:03)
[2017-08-24] MEDS: OXYCODONE-ACETAMINOPHEN 5-325 MG TABLET NG PRN (13:04)
[2017-08-24] MEDS: POTASSI CL 20 MEQ/NS 1L 1,000 ML IV PRN (15:56)
[2017-08-24] MEDS: CEFTRIAXONE 1 GM/D5W RTU 1 GM/50 ML RTUPB IV SCH (17:12)
[2017-08-24] MEDS: BUDESONIDE NEB 0.5 MG/2 ML AMPUL NEB SCH (20:21)
[2017-08-24 20:55] LABS: A TYPE INFLUENZA AG NEGATIVE (NEGATIVE); B INFLUENZA AG NEGATIVE (NEGATIVE)
[2017-08-24] MEDS: ATORVASTATIN CALCIUM 40 MG TABLET NG SCH (21:53)
[2017-08-25] MEDS: IPRATROPIUM/ALBUTEROL 0.5-2.5 MG/3 ML AMPUL NEB SCH ×4 (02:50→19:47)
[2017-08-25] MEDS: PROPOFOL 100 ML IV PRN ×5 (04:34→21:47)
[2017-08-25] MEDS: FLUTICASONE/SALMETEROL DISKUS 500-50 MCG/DOSE IH SCH ×3 (04:35→22:57)
[2017-08-25] MEDS: METOPROLOL SUCCINATE 25 MG TAB.SR.24H PO SCH ×3 (04:35→22:57)
[2017-08-25 05:49] LABS: ABSOLUTE LYMPHOCYTES (AUTO) 0.7 10^3/uL (0.5-4.7); ABSOLUTE MONOCYTES (AUTO) 0.3 10^3/uL (0.1-1.4); ABSOLUTE NEUT (AUTO) 9.8 10^3/uL (1.7-8.2); HEMATOCRIT 38.6 % (36.0-47.0); HEMOGLOBIN 12.5 g/dL (12.0-15.5); LYMPHOCYTES % (AUTO) 6.4 % (13-45); MEAN CORPUSCULAR HEMOGLOBIN 26.2 pg (27.0-33.4); MEAN CORPUSCULAR HGB CONC 32.3 g/dL (32.0-36.0); MEAN CORPUSCULAR VOLUME 81 fl (80-97); MONOCYTES % (AUTO) 2.5 % (3-13); PLATELET COUNT 210 10^3/uL (150-450); RED BLOOD COUNT 4.75 10^6/uL (3.72-5.28); RED CELL DISTRIBUTION WIDTH 18.4 % (11.5-14.0); SEGMENTED NEUTROPHILS % (AUTO) 91.1 % (42-78); TOTAL CELLS COUNTED % (AUTO) 100 %; WHITE BLOOD COUNT 10.8 10^3/uL (4.0-10.5)
[2017-08-25 06:03] LABS: ARTERIAL BLOOD BASE EXCESS -2.3 mmol/L; ARTERIAL BLOOD H2CO3 1.17 mmol/L (1.05-1.35); ARTERIAL BLOOD HCO3 22.5 mmol/L (20-26); ARTERIAL BLOOD O2 SATURATION 93.8 % (94-98); ARTERIAL BLOOD PH 7.38 (7.35-7.45); ARTERIAL BLOOD PO2 69.8 mmHg (80-100); ARTERIAL BLOOD TOTAL CO2 23.7 mmol/L (21-25)
[2017-08-25 06:08] LABS: ALANINE AMINOTRANSFERASE 24 U/L (9-52); ALBUMIN 2.9 g/dL (3.5-5.0); ALKALINE PHOSPHATASE 63 U/L (38-126); ANION GAP 9 (5-19); ASPARTATE AMINO TRANSFERASE 8 U/L (14-36); BILIRUBIN,DIRECT 0.1 mg/dL (0.0-0.4); BILIRUBIN,TOTAL 0.1 mg/dL (0.2-1.3); BLOOD UREA NITROGEN 16 mg/dL (7-20); CALCIUM 9.3 mg/dL (8.4-10.2); CARBON DIOXIDE 21 mmol/L (22-30); CHLORIDE 113 mmol/L (98-107); GLUCOSE 152 mg/dL (75-110); MAGNESIUM 2.3 mg/dL (1.6-2.3); PHOSPHORUS 3.6 mg/dL (2.5-4.5); POTASSIUM 4.3 mmol/L (3.6-5.0); SODIUM 142.6 mmol/L (137-145); TOTAL PROTEIN 4.8 g/dL (6.3-8.2)
[2017-08-25] MEDS: LANSOPRAZOLE 30 MG TAB.RAP.DR PO SCH (06:23)
[2017-08-25] MEDS: METHYLPREDNISOLONE INJ 125 MG/2 ML SDV IV SCH ×3 (06:23→22:54)
[2017-08-25] MEDS: POTASSI CL 20 MEQ/NS 1L 1,000 ML IV PRN (06:24)
[2017-08-25] MEDS: PREGABALIN 50 MG CAPSULE NG SCH ×3 (06:24→22:54)
[2017-08-25] MEDS: HEPARIN SOD (PORCINE) 5,000 UNIT/ML 1 ML SYRINGE SUBCUT SCH ×3 (06:24→22:56)
--- NOTE | 2017-08-25 06:33 | RADIOLOGY REPORT (SQ) ---
EXAM DESCRIPTION: CHEST SINGLE VIEW CLINICAL HISTORY: acute/chronic resp fail COMPARISON: 08/24/2017 FINDINGS: Single frontal view of the chest. NG tube with tip below the diaphragm. Endotracheal tube with tip 4 cm above the vianney. Right IJ Mediport with tip in the SVC. Atherosclerotic calcification of the aortic arch. Cardiomegaly. Likely small bilateral pleural effusions. Improved aeration of the left lung base. No pneumothorax. No new osseous abnormalities. IMPRESSION: 1. Improved aeration of the left lung base. Likely small bilateral pleural effusions. Electronically signed by: Manuel Lu 08/25/2017 5:32
[2017-08-25] MEDS: MIDAZOLAM 2 MG/2 ML INJ IV PRN ×2 (08:17→21:26)
[2017-08-25] MEDS: OXYCODONE HCL IR 5 MG TABLET NG PRN (08:17)
[2017-08-25] MEDS: OXYCODONE-ACETAMINOPHEN 5-325 MG TABLET NG PRN (08:18)
[2017-08-25] MEDS: BUDESONIDE NEB 0.5 MG/2 ML AMPUL NEB SCH ×2 (08:40→19:48)
[2017-08-25] MEDS: ASPIRIN 81 MG TABLET, ENT COATED PO SCH (09:40)
[2017-08-25] MEDS: LACTOBACILLUS ACIDOPHILUS 250 MG TAB NG SCH ×2 (09:40→17:43)
[2017-08-25] MEDS: GUAIFENESIN 600 MG TABLET.SA PO SCH ×2 (09:40→22:54)
[2017-08-25] MEDS: ASCORBIC ACID 500 MG TABLET NG SCH ×2 (09:40→17:43)
[2017-08-25] MEDS: AZITHROMYCIN 500 MG in DEXTROSE 5%-WATER 250 ML IV SCH (09:40)
[2017-08-25] MEDS: NITROGLYCERIN 10 MG (0.4 MG/HR) PATCH.TD24 TOP SCH (09:41)
[2017-08-25] MEDS: NICOTINE 14 MG/24 HR PATCH.TD24 TD SCH (10:55)
--- NOTE | 2017-08-25 11:00 | PDOC PROGRESS REPORT ---
Subjective Progress Note for:: 08/25/17 Subjective:: The patient is a 72-year-old female with oxygen dependent COPD. At baseline, her oxygen requirement is 5 L. The patient presented on 08/23/17 with progressive hypoxic respiratory failure. Despite supplemental oxygen her oxygen saturation was 65%. She necessitated intubation in the emergency department. Currently, she is intubated and sedated. She is lightly sedated. She is able to follow commands. So far, her respiratory culture is unremarkable but she is growing E. coli in her urine. Reason For Visit: COPD EXACERBATION,PNEUMONIA,TOBACCO DEP Physical Exam Vital Signs: Temp Pulse Resp BP Pulse Ox 98.2 F 80 20 109/45 L 95 08/25/17 07:54 08/25/17 08:40 08/25/17 08:40 08/25/17 07:54 08/25/17 08:40 Intake & Output 08/24/17 08/25/17 08/26/17 06:59 06:59 06:59 Intake Total 2077 2628 Output Total 585 2065 60 Balance 1492 563 -60 Weight 80.9 kg 80.3 kg Additional comments: The patient appears to be her stated age. She has noticeable bruising on her face, particularly on her eyelids. Other than the endotracheal tube those are the only abnormal findings in her facial exam. Her lungs demonstrate coarse and diffuse bilateral rhonchi. Cardiac exam is regular, no murmurs, gallops or rubs are noted. The abdomen is soft and flat. Bowel sounds are noted in the lower quadrants. The patient does not have guarding or rebound noted and there are no hernias or masses apparent. The lower extremities are warm to touch without any significant edema. The skin is warm, dry and intact. The only abnormalities are the bruises noted above on the face and she also has some bruises on her hands bilaterally. Results Laboratory Results: 08/25/17 05:20 08/25/17 05:20 08/25/17 08/25/17 08/25/17 05:20 05:20 05:26 WBC 10.8 H RBC 4.75 Hgb 12.5 Hct 38.6 MCV 81 MCH 26.2 L MCHC 32.3 RDW 18.4 H Plt Count 210 Seg Neutrophils % 91.1 H Lymphocytes % 6.4 L Monocytes % 2.5 L Eosinophils % 0.0 Basophils % 0.0 Absolute Neutrophils 9.8 H Absolute Lymphocytes 0.7 Absolute Monocytes 0.3 Absolute Eosinophils 0.0 Absolute Basophils 0.0 Carbonic Acid 1.17 HCO3/H2CO3 Ratio 19:1 ABG pH 7.38 ABG pCO2 39.0 ABG pO2 69.8 L ABG HCO3 22.5 ABG O2 Saturation 93.8 L ABG Base Excess -2.3 FiO2 55% Sodium 142.6 Potassium 4.3 Chloride 113 H Carbon Dioxide 21 L Anion Gap 9 BUN 16 Creatinine 0.68 Est GFR ( Amer) > 60 Est GFR (Non-Af Amer) > 60 Glucose 152 H Calcium 9.3 Phosphorus 3.6 Magnesium 2.3 Total Bilirubin 0.1 L AST 8 L ALT 24 Alkaline Phosphatase 63 Total Protein 4.8 L Albumin 2.9 L 08/23/17 19:01 Sputum Gram Stain - Final 08/23/17 19:01 Sputum Sputum Culture - Final NORMAL MIRYAM 08/23/17 18:32 Nasophary (Mrsa Only) MRSA Surveillance Culture - Final NO MRSA RECOVERED 08/23/17 15:45 Catheterized Urine Urine Culture - Final Escherichia Coli 08/24/17 08/25/17 06:30 05:20 Troponin I < 0.012 NT-Pro-B Natriuret Pep 795 Impressions: KUB X-Ray 08/23/17 14:58 IMPRESSION: Tip of the NG tube is in the body of the stomach. Chest X-Ray 08/25/17 06:00 IMPRESSION: 1. Improved aeration of the left lung base. Likely small bilateral pleural effusions. Assessment & Plan - Diagnosis (1) Acute respiratory failure with hypoxia Is this a current diagnosis for this admission?: Yes Plan: Wean mechanical ventilation as tolerated. It appears that the patient's reason for intubation is likely associated with a COPD exacerbation. Chest x-ray today is fairly unremarkable. I am less concerned about pneumonia at this time. It is possible that the patient had mucous plugging which accounted for the left lower lobe infiltrate seen previously. (2) COPD exacerbation Plan: Continue corticosteroids and bronchodilators. (3) Hypokalemia Is this a current diagnosis for this admission?: Yes Plan: Resolved. Will discontinue supplemental potassium in IV fluids. (4) Respiratory failure Qualifiers: Chronicity: acute Respiratory failure complication: hypoxia Qualified Code(s): J96.01 - Acute respiratory failure with hypoxia Plan: Patient appears with acute on chronic respiratory failure. There are components of both hypoxia and hypercarbia, but primarily hypoxia. (5) Diabetes mellitus type 2, controlled Qualifiers: Diabetes mellitus complication status: without complication Diabetes mellitus termination clerk insulin use: with [facility] use Qualified Code(s): E11.9 - Type 2 diabetes mellitus without complications; Z79.4 - ferry terminal supervisor (current) use of insulin; Z79.4 - shelter (current) use of insulin; Z79.4 - shelter ( current) use of insulin; Z79.4 - shelter (current) use of insulin Is this a current diagnosis for this admission?: Yes Plan: Despite fairly aggressive doses of corticosteroids, blood sugars remain in good range. Continue sliding scale. (6) INÉS (obstructive sleep apnea) Is this a current diagnosis for this admission?: Yes Plan: We will need to wean to CPAP. (7) Opiate dependence, continuous Is this a current diagnosis for this admission?: Yes Plan: Unfortunately, the use of chronic opiates exacerbates the patient's respiratory illness. (8) UTI (urinary tract infection) Qualifiers: Urinary tract infection type: site unspecified Hematuria presence: without hematuria Qualified Code(s): N39.0 - Urinary tract infection, site not specified Plan: Urine culture is growing greater than 100,000 E. coli. The bacteria is susceptible to Rocephin. - Time Time Spent with patient: 25-34 minutes - Inpatient Certification Medical Necessity: Need for IV Antibiotics - The patient remains critically ill on mechanical ventilation. Hospitalization is warranted.
[2017-08-25] MEDS: INSULIN LISPRO 100 UNIT/ML 3 ML VIAL SUBCUT PRN (12:22)
--- NOTE | 2017-08-25 12:38 | EKG REPORT ---
SEVERITY:- BORDERLINE ECG - SINUS RHYTHM PROBABLE LEFT ATRIAL ABNORMALITY : Confirmed by: Barbie Parada MD 25-Aug-2017 12:37:42
--- NOTE | 2017-08-25 13:24 | PDOC PROGRESS REPORT ---
Subjective Progress Note for:: 08/25/17 Subjective:: intubated Reason For Visit: COPD EXACERBATION,PNEUMONIA,TOBACCO DEP Physical Exam Vital Signs: Temp Pulse Resp BP Pulse Ox 98.1 F 74 22 H 119/49 L 96 08/25/17 06:46 08/25/17 02:50 08/25/17 06:46 08/25/17 06:46 08/25/17 06:46 Intake & Output 08/24/17 08/25/17 08/26/17 06:59 06:59 06:59 Intake Total 2077 2628 Output Total 585 2065 Balance 1492 563 Weight 80.9 kg 80.3 kg General appearance: PRESENT: no acute distress, disheveled, mild distress, morbidly obese, severe distress, well-developed Head exam: PRESENT: atraumatic, normocephalic Eye exam: PRESENT: conjunctiva pale. ABSENT: conjunctival injection, conjunctiva pink, EOMI, nystagmus, periorbital swelling, scleral icterus Mouth exam: PRESENT: dry mucosa, neck supple, tongue midline, other - ET tube. ABSENT: laceration, moist Neck exam: ABSENT: carotid bruit, JVD, lymphadenopathy, thyromegaly, tracheal deviation, tracheostomy Respiratory exam: PRESENT: decreased breath sounds, prolonged expiratory phas, rales, rhonchi, symmetrical, unlabored, wheezes. ABSENT: accessory muscle use, chest wall tenderness, clear to auscultation garrison, crackles, retraction, stridor , tachypnea Cardiovascular exam: PRESENT: RRR, +S1, +S2 Pulses: PRESENT: normal radial pulses GI/Abdominal exam: PRESENT: normal bowel sounds, soft. ABSENT: distended, guarding, mass, organolmegaly, rebound, tenderness Gentrourinary exam: PRESENT: indwelling catheter Extremities exam: ABSENT: clubbing, joint swelling Musculoskeletal exam: ABSENT: ambulatory, deformity, dislocation Neurological exam: ABSENT: alert, awake Skin exam: PRESENT: dry, warm Results Laboratory Results: 08/25/17 05:20 08/25/17 05:20 08/25/17 08/25/17 08/25/17 05:20 05:20 05:26 WBC 10.8 H RBC 4.75 Hgb 12.5 Hct 38.6 MCV 81 MCH 26.2 L MCHC 32.3 RDW 18.4 H Plt Count 210 Seg Neutrophils % 91.1 H Lymphocytes % 6.4 L Monocytes % 2.5 L Eosinophils % 0.0 Basophils % 0.0 Absolute Neutrophils 9.8 H Absolute Lymphocytes 0.7 Absolute Monocytes 0.3 Absolute Eosinophils 0.0 Absolute Basophils 0.0 Carbonic Acid 1.17 HCO3/H2CO3 Ratio 19:1 ABG pH 7.38 ABG pCO2 39.0 ABG pO2 69.8 L ABG HCO3 22.5 ABG O2 Saturation 93.8 L ABG Base Excess -2.3 FiO2 55% Sodium 142.6 Potassium 4.3 Chloride 113 H Carbon Dioxide 21 L Anion Gap 9 BUN 16 Creatinine 0.68 Est GFR ( Amer) > 60 Est GFR (Non-Af Amer) > 60 Glucose 152 H Calcium 9.3 Phosphorus 3.6 Magnesium 2.3 Total Bilirubin 0.1 L AST 8 L ALT 24 Alkaline Phosphatase 63 Total Protein 4.8 L Albumin 2.9 L 08/23/17 18:32 Nasophary (Mrsa Only) MRSA Surveillance Culture - Final NO MRSA RECOVERED 08/23/17 15:45 Catheterized Urine Urine Culture - Final Escherichia Coli 08/24/17 08/25/17 06:30 05:20 Troponin I < 0.012 NT-Pro-B Natriuret Pep 795 Impressions: KUB X-Ray 08/23/17 14:58 IMPRESSION: Tip of the NG tube is in the body of the stomach. Chest X-Ray 08/25/17 06:00 IMPRESSION: 1. Improved aeration of the left lung base. Likely small bilateral pleural effusions. Assessment & Plan - Diagnosis (1) Acute respiratory failure with hypoxia Is this a current diagnosis for this admission?: Yes Plan: decrease in FIO2 tolerated thus far (2) INÉS (obstructive sleep apnea) Is this a current diagnosis for this admission?: Yes Plan: after extubation NIPPV (3) Acute and chronic respiratory failure with hypercapnia Is this a current diagnosis for this admission?: Yes Plan: change to SIMV w/PRVC decrease PeeP as tolerated (4) GERD (gastroesophageal reflux disease) Qualifiers: Esophagitis presence: without esophagitis Qualified Code(s): K21.9 - Gastro -esophageal reflux disease without esophagitis Is this a current diagnosis for this admission?: Yes Plan: ppi (5) Opiate dependence, continuous Is this a current diagnosis for this admission?: Yes Plan: home meds (6) CHF (congestive heart failure) Qualifiers: Congestive heart failure type: unspecified congestive heart failure type Congestive heart failure chronicity: chronic Qualified Code(s): I50.9 - Heart failure, unspecified Is this a current diagnosis for this admission?: Yes Plan: continue current tx (7) Pulmonary hypertension Is this a current diagnosis for this admission?: Yes Plan: INÉS chronic hypoxia (8) Tobacco dependency Is this a current diagnosis for this admission?: Yes Plan: transdermal nicotine - Time Total Critical Time (Minutes): 45
[2017-08-25] MEDS: CEFTRIAXONE 1 GM/D5W RTU 1 GM/50 ML RTUPB IV SCH (17:43)
[2017-08-25] MEDS: ATORVASTATIN CALCIUM 40 MG TABLET NG SCH (22:53)
[2017-08-26] MEDS: IPRATROPIUM/ALBUTEROL 0.5-2.5 MG/3 ML AMPUL NEB SCH ×4 (02:30→20:49)
[2017-08-26] MEDS: PREGABALIN 50 MG CAPSULE NG SCH ×3 (06:11→22:15)
[2017-08-26] MEDS: MIDAZOLAM 2 MG/2 ML INJ IV PRN ×3 (06:11→22:17)
[2017-08-26] MEDS: LANSOPRAZOLE 30 MG TAB.RAP.DR PO SCH (06:11)
[2017-08-26] MEDS: METHYLPREDNISOLONE INJ 125 MG/2 ML SDV IV SCH ×2 (06:12→22:16)
[2017-08-26] MEDS: HEPARIN SOD (PORCINE) 5,000 UNIT/ML 1 ML SYRINGE SUBCUT SCH ×3 (06:12→22:16)
[2017-08-26 06:19] LABS: ABSOLUTE LYMPHOCYTES (AUTO) 0.6 10^3/uL (0.5-4.7); ABSOLUTE MONOCYTES (AUTO) 0.2 10^3/uL (0.1-1.4); ABSOLUTE NEUT (AUTO) 9.5 10^3/uL (1.7-8.2); HEMATOCRIT 39.2 % (36.0-47.0); HEMOGLOBIN 12.6 g/dL (12.0-15.5); LYMPHOCYTES % (AUTO) 5.9 % (13-45); MEAN CORPUSCULAR HGB CONC 32.2 g/dL (32.0-36.0); MEAN CORPUSCULAR VOLUME 81 fl (80-97); MONOCYTES % (AUTO) 2.1 % (3-13); PLATELET COUNT 223 10^3/uL (150-450); RED BLOOD COUNT 4.85 10^6/uL (3.72-5.28); RED CELL DISTRIBUTION WIDTH 18.1 % (11.5-14.0); TOTAL CELLS COUNTED % (AUTO) 100 %; WHITE BLOOD COUNT 10.3 10^3/uL (4.0-10.5)
--- NOTE | 2017-08-26 06:23 | RADIOLOGY REPORT (SQ) ---
EXAM DESCRIPTION: CHEST SINGLE VIEW CLINICAL HISTORY: acute/chronic resp failure COMPARISON: 08/25/2017 FINDINGS: Single frontal view of the chest. NG tube with tip below the diaphragm. Endotracheal tube with tip 4 cm above the vianney. Right IJ Mediport with tip in the SVC. Atherosclerotic calcification of the aortic arch. Cardiomegaly. Small bilateral pleural effusions.. No pneumothorax. No new osseous abnormalities. IMPRESSION: 1. Stable appearance of the chest. Electronically signed by: Manuel Lu 08/26/2017 5:22 AM CHIEF RADIATION THERAPIST
[2017-08-26 06:37] LABS: ANION GAP 8 (5-19); BLOOD UREA NITROGEN 21 mg/dL (7-20); CARBON DIOXIDE 23 mmol/L (22-30); CHLORIDE 113 mmol/L (98-107); GLUCOSE 159 mg/dL (75-110); MAGNESIUM 2.6 mg/dL (1.6-2.3); POTASSIUM 4.9 mmol/L (3.6-5.0); SODIUM 143.5 mmol/L (137-145)
[2017-08-26 06:38] LABS: ARTERIAL BLOOD BASE EXCESS -1.7 mmol/L; ARTERIAL BLOOD H2CO3 1.14 mmol/L (1.05-1.35); ARTERIAL BLOOD HCO3 22.8 mmol/L (20-26); ARTERIAL BLOOD O2 SATURATION 91.3 % (94-98); ARTERIAL BLOOD PCO2 37.9 mmHg (35-45); ARTERIAL BLOOD PO2 60.6 mmHg (80-100)
[2017-08-26 06:39] LABS: ARTERIAL BLOOD FIO2 45%
[2017-08-26] MEDS: BUDESONIDE NEB 0.5 MG/2 ML AMPUL NEB SCH ×2 (09:01→20:49)
[2017-08-26] MEDS: PROPOFOL 100 ML IV PRN ×5 (09:19→22:14)
[2017-08-26] MEDS: NITROGLYCERIN 10 MG (0.4 MG/HR) PATCH.TD24 TOP SCH (09:22)
[2017-08-26] MEDS: LACTOBACILLUS ACIDOPHILUS 250 MG TAB NG SCH ×2 (09:23→18:39)
[2017-08-26] MEDS: AZITHROMYCIN 500 MG in DEXTROSE 5%-WATER 250 ML IV SCH (09:23)
[2017-08-26] MEDS: ASCORBIC ACID 500 MG TABLET NG SCH ×2 (09:23→18:40)
--- NOTE | 2017-08-26 11:00 | PDOC PROGRESS REPORT ---
Subjective Progress Note for:: 08/26/17 Subjective:: The patient is a 72-year-old female with oxygen dependent COPD. At baseline, her oxygen requirement is 5 L. The patient presented on 08/23/17 with progressive hypoxic respiratory failure. Despite supplemental oxygen her oxygen saturation was 65%. She necessitated intubation in the emergency department. Currently, she is intubated and sedated. She is lightly sedated. She is able to follow commands. So far, her respiratory culture is unremarkable but she is growing E. coli in her urine. Dr. Aguilar is following. The patient is receiving daily weaning trials. I did start tube feeds 08/25/17. Reason For Visit: COPD EXACERBATION,PNEUMONIA,TOBACCO DEP Physical Exam Vital Signs: Temp Pulse Resp BP Pulse Ox 98.4 F 93 26 H 125/52 L 96 08/26/17 08:00 08/26/17 10:00 08/26/17 10:00 08/26/17 10:00 08/26/17 10:00 Intake & Output 08/25/17 08/26/17 08/27/17 06:59 06:59 06:59 Intake Total 2628 1934 Output Total 2065 1640 400 Balance 563 294 -400 Weight 80.3 kg 83.1 kg Additional comments: The patient is currently intubated. She is mildly sedated. Her facial appearance again shows that she has periorbital bruising. Her lungs are extremely coarse as they were yesterday. She does appear to have some end expiratory wheezing noted. Her cardiac exam is regular. I do not appreciate any murmurs, gallops or rubs. The abdomen is soft and flat. Bowel sounds are present. The lower extremities are warm to touch. No pitting edema is present. Other than bruising the skin is warm dry and intact without lesions or rashes. Results Laboratory Results: 08/26/17 05:50 08/26/17 05:50 08/26/17 08/26/17 08/26/17 05:50 05:50 05:50 WBC 10.3 RBC 4.85 Hgb 12.6 Hct 39.2 MCV 81 MCH 26.0 L MCHC 32.2 RDW 18.1 H Plt Count 223 Seg Neutrophils % 92.0 H Lymphocytes % 5.9 L Monocytes % 2.1 L Eosinophils % 0.0 Basophils % 0.0 Absolute Neutrophils 9.5 H Absolute Lymphocytes 0.6 Absolute Monocytes 0.2 Absolute Eosinophils 0.0 Absolute Basophils 0.0 Carbonic Acid 1.14 HCO3/H2CO3 Ratio 20:1 ABG pH 7.40 ABG pCO2 37.9 ABG pO2 60.6 L ABG HCO3 22.8 ABG O2 Saturation 91.3 L ABG Base Excess -1.7 FiO2 45% Sodium 143.5 Potassium 4.9 Chloride 113 H Carbon Dioxide 23 Anion Gap 8 BUN 21 H Creatinine 0.69 Est GFR ( Amer) > 60 Est GFR (Non-Af Amer) > 60 Glucose 159 H Calcium 9.0 Magnesium 2.6 H 08/23/17 19:01 Sputum Gram Stain - Final 08/23/17 19:01 Sputum Sputum Culture - Final NORMAL MIRYAM 08/23/17 18:32 Nasophary (Mrsa Only) MRSA Surveillance Culture - Final NO MRSA RECOVERED 08/23/17 15:45 Catheterized Urine Urine Culture - Final Escherichia Coli 08/24/17 08/25/17 06:30 05:20 Troponin I < 0.012 NT-Pro-B Natriuret Pep 795 Impressions: KUB X-Ray 08/23/17 14:58 IMPRESSION: Tip of the NG tube is in the body of the stomach. Chest X-Ray 08/26/17 06:00 IMPRESSION: 1. Stable appearance of the chest. Assessment & Plan - Diagnosis (1) Acute respiratory failure with hypoxia Is this a current diagnosis for this admission?: Yes Plan: Wean mechanical ventilation as tolerated. It appears that the patient's reason for intubation is likely associated with a COPD exacerbation. Chest x-ray today is fairly unremarkable. I am less concerned about pneumonia at this time. It is possible that the patient had mucous plugging which accounted for the left lower lobe infiltrate seen previously. The patient remains on ceftriaxone and azithromycin. Today, I will begin to wean corticosteroids. (2) COPD exacerbation Plan: Continue corticosteroids and bronchodilators. Today, I will begin to wean corticosteroids. The patient remains on antibiotics for presumed tracheobronchitis. Her culture right now is negative but antibiotics will likely decrease bacterial load. In addition, she requires antibiotics for urinary tract infection. (3) Hypokalemia Is this a current diagnosis for this admission?: Yes Plan: Resolved. Supplemental potassium was discontinued yesterday. (4) Respiratory failure Qualifiers: Chronicity: acute Respiratory failure complication: hypoxia Qualified Code(s): J96.01 - Acute respiratory failure with hypoxia Plan: Patient appears with acute on chronic respiratory failure. There are components of both hypoxia and hypercarbia, but primarily hypoxia. (5) Diabetes mellitus type 2, controlled Qualifiers: Diabetes mellitus complication status: without complication Diabetes mellitus intermediate school teacher insulin use: with long-term use Qualified Code(s): E11.9 - Type 2 diabetes mellitus without complications; Z79.4 - assisted (current) use of insulin; Z79.4 - terminal block assembler (current) use of insulin; Z79.4 - assisted ( current) use of insulin; Z79.4 - assisted (current) use of insulin Is this a current diagnosis for this admission?: Yes Plan: Despite fairly aggressive doses of corticosteroids, blood sugars remain in good range. Blood sugars are still in good range despite adding tube feeds yesterday. Continue sliding scale. (6) INÉS (obstructive sleep apnea) Is this a current diagnosis for this admission?: Yes Plan: We will need to wean to CPAP. (7) Opiate dependence, continuous Is this a current diagnosis for this admission?: Yes Plan: Unfortunately, the use of chronic opiates exacerbates the patient's respiratory illness. (8) UTI (urinary tract infection) Qualifiers: Urinary tract infection type: site unspecified Hematuria presence: without hematuria Qualified Code(s): N39.0 - Urinary tract infection, site not specified Plan: Urine culture is growing greater than 100,000 E. coli. The bacteria is susceptible to Rocephin. She remains on Rocephin. - Time Time Spent with patient: 25-34 minutes - Inpatient Certification Medical Necessity: Need for IV Antibiotics, Risk of Complication if Not Cared For in Hospital, Risk of Diagnosis Which Will Require Inpatient Eval/Care/ Monitoring - Patient remains critically ill on mechanical ventilation.
[2017-08-26] MEDS: ASPIRIN 81 MG TABLET, ENT COATED PO SCH (12:05)
[2017-08-26] MEDS: METOPROLOL SUCCINATE 25 MG TAB.SR.24H PO SCH (12:05)
[2017-08-26] MEDS: GUAIFENESIN 600 MG TABLET.SA PO SCH (12:05)
[2017-08-26] MEDS: NICOTINE 14 MG/24 HR PATCH.TD24 TD SCH (12:46)
[2017-08-26] MEDS: FLUTICASONE/SALMETEROL DISKUS 500-50 MCG/DOSE IH SCH ×2 (12:47→22:19)
[2017-08-26] MEDS: GUAIFENESIN SYRP 200 MG/10 ML UDC NG SCH (18:40)
[2017-08-26] MEDS: CEFTRIAXONE 1 GM/D5W RTU 1 GM/50 ML RTUPB IV SCH (18:40)
[2017-08-26] MEDS: ATORVASTATIN CALCIUM 40 MG TABLET NG SCH (22:15)
[2017-08-26] MEDS: METOPROLOL TARTRATE 25 MG TABLET NG SCH (22:15)
[2017-08-26] MEDS: FENTANYL CITRATE INJ/PF 100 MCG/2 ML AMPUL IV PRN (23:20)
[2017-08-27] MEDS: PROPOFOL 100 ML IV PRN ×8 (01:33→22:06)
[2017-08-27] MEDS: IPRATROPIUM/ALBUTEROL 0.5-2.5 MG/3 ML AMPUL NEB SCH ×4 (02:13→19:30)
[2017-08-27] MEDS: MIDAZOLAM 2 MG/2 ML INJ IV PRN ×2 (03:35→10:22)
[2017-08-27] MEDS: PREGABALIN 50 MG CAPSULE NG SCH ×3 (05:31→21:05)
[2017-08-27] MEDS: LANSOPRAZOLE 30 MG TAB.RAP.DR PO SCH (05:32)
[2017-08-27] MEDS: HEPARIN SOD (PORCINE) 5,000 UNIT/ML 1 ML SYRINGE SUBCUT SCH ×3 (05:32→21:06)
[2017-08-27 05:57] LABS: ARTERIAL BLOOD BASE EXCESS -0.5 mmol/L; ARTERIAL BLOOD FIO2 60%; ARTERIAL BLOOD H2CO3 1.24 mmol/L (1.05-1.35); ARTERIAL BLOOD HCO3 24.4 mmol/L (20-26); ARTERIAL BLOOD O2 SATURATION 95.1 % (94-98); ARTERIAL BLOOD PCO2 41.1 mmHg (35-45); ARTERIAL BLOOD PH 7.39 (7.35-7.45); ARTERIAL BLOOD TOTAL CO2 25.6 mmol/L (21-25)
[2017-08-27 06:02] LABS: ABSOLUTE LYMPHOCYTES (AUTO) 0.8 10^3/uL (0.5-4.7); ABSOLUTE MONOCYTES (AUTO) 0.2 10^3/uL (0.1-1.4); ABSOLUTE NEUT (AUTO) 7.6 10^3/uL (1.7-8.2); BASOPHILS % (AUTO) 0.1 % (0-2); HEMATOCRIT 39.3 % (36.0-47.0); HEMOGLOBIN 12.5 g/dL (12.0-15.5); LYMPHOCYTES % (AUTO) 8.9 % (13-45); MEAN CORPUSCULAR HGB CONC 31.9 g/dL (32.0-36.0); MEAN CORPUSCULAR VOLUME 81 fl (80-97); MONOCYTES % (AUTO) 1.9 % (3-13); PLATELET COUNT 201 10^3/uL (150-450); RED BLOOD COUNT 4.83 10^6/uL (3.72-5.28); RED CELL DISTRIBUTION WIDTH 17.8 % (11.5-14.0); SEGMENTED NEUTROPHILS % (AUTO) 89.1 % (42-78); TOTAL CELLS COUNTED % (AUTO) 100 %; WHITE BLOOD COUNT 8.5 10^3/uL (4.0-10.5)
[2017-08-27 06:05] LABS: ANION GAP 9 (5-19); BLOOD UREA NITROGEN 21 mg/dL (7-20); CARBON DIOXIDE 24 mmol/L (22-30); CHLORIDE 111 mmol/L (98-107); GLUCOSE 186 mg/dL (75-110); SODIUM 143.6 mmol/L (137-145); TRIGLYCERIDES 308 mg/dL (<150)
[2017-08-27 06:08] LABS: POTASSIUM 5.1 mmol/L (3.6-5.0)
[2017-08-27] MEDS: FENTANYL CITRATE INJ/PF 100 MCG/2 ML AMPUL IV PRN (07:35)
[2017-08-27] MEDS: BUDESONIDE NEB 0.5 MG/2 ML AMPUL NEB SCH ×2 (08:05→19:30)
--- NOTE | 2017-08-27 08:54 | RADIOLOGY REPORT (SQ) ---
EXAM DESCRIPTION: CHEST SINGLE VIEW COMPLETED DATE/TIME: 08/27/2017 6:52 am REASON FOR STUDY: acute/chronic resp failure COMPARISON: None. EXAM PARAMETERS: NUMBER OF VIEWS: One view. TECHNIQUE: Single frontal radiographic view of the chest acquired. RADIATION DOSE: NA LIMITATIONS: None. FINDINGS: LUNGS AND PLEURA: Slight increase in density right upper and left lower lung zones. Possi ble developing atelectasis or infiltrate. Minimal obscuring the costophrenic angles that may represe nt small effusions-unchanged. MEDIASTINUM AND HILAR STRUCTURES: No masses. Contour normal. HEART AND VASCULAR STRUCTURES: Heart normal in size. Normal vasculature. BONES: No acute findings. HARDWARE: Endotracheal tube remains in proper position. Distal NG tube suboptimally visualized. OTHER: No other significant finding. IMPRESSION: Questionable developing density right upper left lower lung zones. Chest otherwise unch anged. Distal NG tube suboptimally visualized. TECHNICAL DOCUMENTATION: JOB ID: [id number] [employer]- All Rights Reserved
[2017-08-27] MEDS: LACTOBACILLUS ACIDOPHILUS 250 MG TAB NG SCH ×2 (10:17→17:19)
[2017-08-27] MEDS: ASCORBIC ACID 500 MG TABLET NG SCH ×2 (10:17→17:17)
[2017-08-27] MEDS: METOPROLOL TARTRATE 25 MG TABLET NG SCH ×2 (10:17→21:05)
[2017-08-27] MEDS: NITROGLYCERIN 10 MG (0.4 MG/HR) PATCH.TD24 TOP SCH (10:18)
[2017-08-27] MEDS: OXYCODONE HCL IR 5 MG TABLET NG PRN (10:18)
[2017-08-27] MEDS: GUAIFENESIN SYRP 200 MG/10 ML UDC NG SCH ×2 (10:19→17:16)
[2017-08-27] MEDS: ASPIRIN 81 MG TABLET, CHEWABLE NG SCH (10:19)
[2017-08-27] MEDS: OXYCODONE-ACETAMINOPHEN 5-325 MG TABLET NG PRN (10:19)
[2017-08-27] MEDS: METHYLPREDNISOLONE INJ 125 MG/2 ML SDV IV SCH ×2 (10:22→21:06)
[2017-08-27] MEDS: AZITHROMYCIN 500 MG in DEXTROSE 5%-WATER 250 ML IV SCH (10:22)
[2017-08-27] MEDS: NICOTINE 14 MG/24 HR PATCH.TD24 TD SCH (10:23)
--- NOTE | 2017-08-27 12:57 | PDOC PROGRESS REPORT ---
Subjective Progress Note for:: 08/27/17 Subjective:: The patient is a 72-year-old female with oxygen dependent COPD. At baseline, her oxygen requirement is 5 L. The patient presented on 08/23/17 with progressive hypoxic respiratory failure. Despite supplemental oxygen her oxygen saturation was 65%. She necessitated intubation in the emergency department. Currently, she is intubated and sedated. She is lightly sedated. She is able to follow commands. So far, her respiratory culture is unremarkable but she is growing E. coli in her urine. Dr. Aguilar is following. The patient is receiving daily weaning trials. She did very poorly on her weaning trial yesterday by report. I did start tube feeds 08/25/17. Reason For Visit: COPD EXACERBATION,PNEUMONIA,TOBACCO DEP Physical Exam Vital Signs: Temp Pulse Resp BP Pulse Ox 98.2 F 74 18 121/81 94 08/27/17 12:00 08/27/17 12:00 08/27/17 12:00 08/27/17 12:00 08/27/17 12:38 Intake & Output 08/26/17 08/27/17 08/28/17 06:59 06:59 06:59 Intake Total 1934 1716 Output Total 2591 0397 620 Balance 672 -819 -620 Weight 83.1 kg 83.5 kg Additional comments: The patient is slightly sedated. Per nursing she wakes up easily and will follow commands. She appears to wake up easily to name call per me. Her facial appearance again is significant for periorbital bruising. Her lungs actually demonstrate decreased rhonchi throughout all lung yusuf today. She has had severe rhonchi present during this hospitalization. Her cardiac exam is regular without murmurs, gallops or rubs. The abdomen is soft and flat. Bowel sounds are present in the lower quadrants. There is no guarding or rebound present and there are no hernias or masses. The lower extremities are warm to touch without any pitting edema. Other than bruising, the skin is warm , dry and intact without lesions or rashes. Results Laboratory Results: 08/27/17 05:40 08/27/17 05:40 08/27/17 08/27/17 08/27/17 05:40 05:40 05:45 WBC 8.5 RBC 4.83 Hgb 12.5 Hct 39.3 MCV 81 MCH 26.0 L MCHC 31.9 L RDW 17.8 H Plt Count 201 Seg Neutrophils % 89.1 H Lymphocytes % 8.9 L Monocytes % 1.9 L Eosinophils % 0.0 Basophils % 0.1 Absolute Neutrophils 7.6 Absolute Lymphocytes 0.8 Absolute Monocytes 0.2 Absolute Eosinophils 0.0 Absolute Basophils 0.0 Carbonic Acid 1.24 HCO3/H2CO3 Ratio 19:1 ABG pH 7.39 ABG pCO2 41.1 ABG pO2 76.0 L ABG HCO3 24.4 ABG O2 Saturation 95.1 ABG Base Excess -0.5 FiO2 60% Sodium 143.6 Potassium 5.1 H Chloride 111 H Carbon Dioxide 24 Anion Gap 9 BUN 21 H Creatinine 0.64 Est GFR ( Amer) > 60 Est GFR (Non-Af Amer) > 60 Glucose 186 H Calcium 9.0 Triglycerides 308 H 08/24/17 08/25/17 06:30 05:20 Troponin I < 0.012 NT-Pro-B Natriuret Pep 795 Impressions: KUB X-Ray 08/23/17 14:58 IMPRESSION: Tip of the NG tube is in the body of the stomach. Chest X-Ray 08/27/17 06:00 IMPRESSION: Questionable developing density right upper left lower lung zones. Chest otherwise unchanged. Distal NG tube suboptimally visualized. Assessment & Plan - Diagnosis (1) Acute respiratory failure with hypoxia Is this a current diagnosis for this admission?: Yes Plan: Wean mechanical ventilation as tolerated. It appears that the patient's reason for intubation is likely associated with a COPD exacerbation. Chest x-ray today is fairly unremarkable. I am less concerned about pneumonia at this time. It is possible that the patient had mucous plugging which accounted for the left lower lobe infiltrate seen previously. The patient remains on ceftriaxone and azithromycin. Yesterday, I began to wean corticosteroids. (2) COPD exacerbation Plan: Continue corticosteroids and bronchodilators. Yesterday, I started to wean corticosteroids. The patient remains on antibiotics for presumed tracheobronchitis. Her culture right now is negative but antibiotics will likely decrease bacterial load. In addition, she requires antibiotics for urinary tract infection. (3) Hypokalemia Is this a current diagnosis for this admission?: Yes Plan: Resolved. Supplemental potassium was discontinued 2 days ago. Now patient is slightly hyperkalemic. Labs will be followed daily. (4) Respiratory failure Qualifiers: Chronicity: acute Respiratory failure complication: hypoxia Qualified Code(s): J96.01 - Acute respiratory failure with hypoxia Plan: Patient appears with acute on chronic respiratory failure. There are components of both hypoxia and hypercarbia, but primarily hypoxia. (5) Diabetes mellitus type 2, controlled Qualifiers: Diabetes mellitus complication status: without complication Diabetes mellitus rn long term care insulin use: with correction use Qualified Code(s): E11.9 - Type 2 diabetes mellitus without complications; Z79.4 - assisted (current) use of insulin; Z79.4 - dedicated intermodal truck driver (current) use of insulin; Z79.4 - assisted ( current) use of insulin; Z79.4 - dedicated intermodal truck driver (current) use of insulin Is this a current diagnosis for this admission?: Yes Plan: Despite fairly aggressive doses of corticosteroids, blood sugars remain in good range. Blood sugars are still in good range despite adding tube feeds yesterday. Continue sliding scale. (6) INÉS (obstructive sleep apnea) Is this a current diagnosis for this admission?: Yes Plan: We will need to wean to CPAP. (7) Opiate dependence, continuous Is this a current diagnosis for this admission?: Yes Plan: Unfortunately, the use of chronic opiates exacerbates the patient's respiratory illness. (8) UTI (urinary tract infection) Qualifiers: Urinary tract infection type: site unspecified Hematuria presence: without hematuria Qualified Code(s): N39.0 - Urinary tract infection, site not specified Plan: Urine culture is growing greater than 100,000 E. coli. The bacteria is susceptible to Rocephin. She remains on Rocephin. - Time Time Spent with patient: 25-34 minutes - Inpatient Certification Medical Necessity: Need Close Monitoring Due to Risk of Patient Decompensation - Patient remains in the intensive care unit on mechanical ventilation., Need for IV Antibiotics, Risk of Complication if Not Cared For in Hospital
--- NOTE | 2017-08-27 13:47 | PDOC PROGRESS REPORT ---
Subjective Progress Note for:: 08/27/17 Subjective:: intubated Reason For Visit: COPD EXACERBATION,PNEUMONIA,TOBACCO DEP Physical Exam Vital Signs: Temp Pulse Resp BP Pulse Ox 98.2 F 77 16 133/59 H 93 08/27/17 07:53 08/27/17 08:07 08/27/17 08:07 08/27/17 07:53 08/27/17 08:07 Intake & Output 08/26/17 08/27/17 08/28/17 06:59 06:59 06:59 Intake Total 1934 1716 Output Total 1640 2535 60 Balance 294 -819 -60 Weight 83.1 kg 83.5 kg General appearance: PRESENT: no acute distress, disheveled, thin. ABSENT: cooperative, mild distress, morbidly obese, obese, severe distress Head exam: PRESENT: atraumatic, normocephalic Eye exam: PRESENT: conjunctiva pale. ABSENT: conjunctival injection, conjunctiva pink, scleral icterus Mouth exam: PRESENT: dry mucosa, neck supple, tongue midline, other - ET tube. ABSENT: laceration, moist Neck exam: ABSENT: carotid bruit, JVD, lymphadenopathy, thyromegaly, tracheal deviation, tracheostomy Respiratory exam: PRESENT: decreased breath sounds, prolonged expiratory phas, rales, rhonchi, symmetrical, wheezes. ABSENT: accessory muscle use, chest wall tenderness, clear to auscultation garrison, crackles, retraction, stridor, tachypnea Cardiovascular exam: ABSENT: irregular rhythm Pulses: PRESENT: normal radial pulses GI/Abdominal exam: PRESENT: normal bowel sounds, soft. ABSENT: distended, guarding, mass, organolmegaly, rebound, tenderness Gentrourinary exam: PRESENT: indwelling catheter Extremities exam: ABSENT: clubbing, joint swelling Musculoskeletal exam: ABSENT: ambulatory, deformity, dislocation Neurological exam: ABSENT: alert, awake Skin exam: PRESENT: dry, warm Results Laboratory Results: 08/27/17 05:40 08/27/17 05:40 08/27/17 08/27/17 08/27/17 05:40 05:40 05:45 WBC 8.5 RBC 4.83 Hgb 12.5 Hct 39.3 MCV 81 MCH 26.0 L MCHC 31.9 L RDW 17.8 H Plt Count 201 Seg Neutrophils % 89.1 H Lymphocytes % 8.9 L Monocytes % 1.9 L Eosinophils % 0.0 Basophils % 0.1 Absolute Neutrophils 7.6 Absolute Lymphocytes 0.8 Absolute Monocytes 0.2 Absolute Eosinophils 0.0 Absolute Basophils 0.0 Carbonic Acid 1.24 HCO3/H2CO3 Ratio 19:1 ABG pH 7.39 ABG pCO2 41.1 ABG pO2 76.0 L ABG HCO3 24.4 ABG O2 Saturation 95.1 ABG Base Excess -0.5 FiO2 60% Sodium 143.6 Potassium 5.1 H Chloride 111 H Carbon Dioxide 24 Anion Gap 9 BUN 21 H Creatinine 0.64 Est GFR ( Amer) > 60 Est GFR (Non-Af Amer) > 60 Glucose 186 H Calcium 9.0 Triglycerides 308 H 08/24/17 08/25/17 06:30 05:20 Troponin I < 0.012 NT-Pro-B Natriuret Pep 795 Impressions: KUB X-Ray 08/23/17 14:58 IMPRESSION: Tip of the NG tube is in the body of the stomach. Chest X-Ray 08/27/17 06:00 IMPRESSION: Questionable developing density right upper left lower lung zones. Chest otherwise unchanged. Distal NG tube suboptimally visualized. Assessment & Plan - Diagnosis (1) Acute respiratory failure with hypoxia Is this a current diagnosis for this admission?: Yes Plan: day 4 intubation (2) INÉS (obstructive sleep apnea) Is this a current diagnosis for this admission?: Yes Plan: after extubation NIPPV (3) Acute and chronic respiratory failure with hypercapnia Is this a current diagnosis for this admission?: Yes (4) GERD (gastroesophageal reflux disease) Qualifiers: Esophagitis presence: without esophagitis Qualified Code(s): K21.9 - Gastro -esophageal reflux disease without esophagitis Is this a current diagnosis for this admission?: Yes Plan: ppi (5) Opiate dependence, continuous Is this a current diagnosis for this admission?: Yes Plan: home meds (6) CHF (congestive heart failure) Qualifiers: Congestive heart failure type: unspecified congestive heart failure type Congestive heart failure chronicity: chronic Qualified Code(s): I50.9 - Heart failure, unspecified Is this a current diagnosis for this admission?: Yes Plan: continue current tx (7) Pulmonary hypertension Is this a current diagnosis for this admission?: Yes Plan: INÉS chronic hypoxia (8) Tobacco dependency Is this a current diagnosis for this admission?: Yes Plan: transdermal nicotine
[2017-08-27] MEDS: CEFTRIAXONE 1 GM/D5W RTU 1 GM/50 ML RTUPB IV SCH (17:20)
[2017-08-27] MEDS: INSULIN LISPRO 100 UNIT/ML 3 ML VIAL SUBCUT PRN (17:58)
[2017-08-27] MEDS: ATORVASTATIN CALCIUM 40 MG TABLET NG SCH (21:05)
[2017-08-28] MEDS: PROPOFOL 100 ML IV PRN ×9 (00:42→23:52)
[2017-08-28] MEDS: IPRATROPIUM/ALBUTEROL 0.5-2.5 MG/3 ML AMPUL NEB SCH ×4 (01:05→19:37)
[2017-08-28] MEDS: HEPARIN SOD (PORCINE) 5,000 UNIT/ML 1 ML SYRINGE SUBCUT SCH ×3 (05:14→21:07)
[2017-08-28] MEDS: PREGABALIN 50 MG CAPSULE NG SCH ×3 (05:14→21:05)
[2017-08-28] MEDS: LANSOPRAZOLE 30 MG TAB.RAP.DR PO SCH (05:14)
[2017-08-28 05:17] LABS: ARTERIAL BLOOD BASE EXCESS 1.7 mmol/L; ARTERIAL BLOOD H2CO3 1.48 mmol/L (1.05-1.35); ARTERIAL BLOOD HCO3 27.7 mmol/L (20-26); ARTERIAL BLOOD O2 SATURATION 91.8 % (94-98); ARTERIAL BLOOD PCO2 49.1 mmHg (35-45); ARTERIAL BLOOD PH 7.37 (7.35-7.45); ARTERIAL BLOOD PO2 64.4 mmHg (80-100); ARTERIAL BLOOD TOTAL CO2 29.3 mmol/L (21-25)
[2017-08-28 05:21] LABS: ARTERIAL BLOOD FIO2 60%
[2017-08-28 05:31] LABS: ABSOLUTE LYMPHOCYTES (AUTO) 0.8 10^3/uL (0.5-4.7); ABSOLUTE MONOCYTES (AUTO) 0.4 10^3/uL (0.1-1.4); ABSOLUTE NEUT (AUTO) 10.1 10^3/uL (1.7-8.2); BASOPHILS % (AUTO) 0.2 % (0-2); HEMOGLOBIN 12.3 g/dL (12.0-15.5); LYMPHOCYTES % (AUTO) 7.4 % (13-45); MEAN CORPUSCULAR HEMOGLOBIN 25.6 pg (27.0-33.4); MEAN CORPUSCULAR HGB CONC 31.6 g/dL (32.0-36.0); MEAN CORPUSCULAR VOLUME 81 fl (80-97); MONOCYTES % (AUTO) 3.6 % (3-13); PLATELET COUNT 197 10^3/uL (150-450); RED BLOOD COUNT 4.81 10^6/uL (3.72-5.28); RED CELL DISTRIBUTION WIDTH 18.1 % (11.5-14.0); SEGMENTED NEUTROPHILS % (AUTO) 88.8 % (42-78); TOTAL CELLS COUNTED % (AUTO) 100 %; WHITE BLOOD COUNT 11.4 10^3/uL (4.0-10.5)
[2017-08-28 05:37] LABS: ANION GAP 7 (5-19); BLOOD UREA NITROGEN 23 mg/dL (7-20); CALCIUM 9.1 mg/dL (8.4-10.2); CARBON DIOXIDE 28 mmol/L (22-30); CHLORIDE 109 mmol/L (98-107); GLUCOSE 163 mg/dL (75-110); MAGNESIUM 2.6 mg/dL (1.6-2.3); POTASSIUM 5.4 mmol/L (3.6-5.0); SODIUM 143.7 mmol/L (137-145)
[2017-08-28 05:48] LABS: ANISOCYTOSIS 1+; POLYCHROMASIA SLIGHT; TOXIC GRANULATION 1+
[2017-08-28 05:49] LABS: BURR CELLS SLIGHT; OVALOCYTES SLIGHT; PLATELET CLUMPS PRESENT; PLATELET COMMENT ADEQUATE; POIKILOCYTOSIS SLIGHT; TEAR DROP CELLS SLIGHT
[2017-08-28] MEDS: BUDESONIDE NEB 0.5 MG/2 ML AMPUL NEB SCH ×2 (07:35→19:36)
--- NOTE | 2017-08-28 10:02 | PDOC PROGRESS REPORT ---
Subjective Progress Note for:: 08/28/17 Subjective:: Patient is still intubated and mechanically ventilated She is afebrile and hemodynamically stable Reason For Visit: COPD EXACERBATION,PNEUMONIA,TOBACCO DEP Physical Exam Vital Signs: Temp Pulse Resp BP Pulse Ox 98.2 F 76 22 H 108/43 L 98 08/28/17 07:40 08/28/17 07:40 08/28/17 07:40 08/28/17 07:40 08/28/17 07:40 Intake & Output 08/27/17 08/28/17 08/29/17 00:59 00:59 00:59 Intake Total 1940 1799 1394 Output Total 2274 4870 625 Balance -335 -777 769 Weight 83.1 kg 83.5 kg 83.3 kg Results Laboratory Results: 08/28/17 04:50 08/28/17 04:50 08/28/17 08/28/17 08/28/17 04:50 04:50 04:50 WBC 11.4 H RBC 4.81 Hgb 12.3 Hct 39.0 MCV 81 MCH 25.6 L MCHC 31.6 L RDW 18.1 H Plt Count 197 Seg Neutrophils % 88.8 H Lymphocytes % 7.4 L Monocytes % 3.6 Eosinophils % 0.0 Basophils % 0.2 Absolute Neutrophils 10.1 H Absolute Lymphocytes 0.8 Absolute Monocytes 0.4 Absolute Eosinophils 0.0 Absolute Basophils 0.0 Carbonic Acid 1.48 H HCO3/H2CO3 Ratio 18:1 ABG pH 7.37 ABG pCO2 49.1 H ABG pO2 64.4 L ABG HCO3 27.7 H ABG O2 Saturation 91.8 L ABG Base Excess 1.7 FiO2 60% Sodium 143.7 Potassium 5.4 H Chloride 109 H Carbon Dioxide 28 Anion Gap 7 BUN 23 H Creatinine 0.59 Est GFR ( Amer) > 60 Est GFR (Non-Af Amer) > 60 Glucose 163 H Calcium 9.1 Magnesium 2.6 H 08/24/17 08/25/17 06:30 05:20 Troponin I < 0.012 NT-Pro-B Natriuret Pep 795 Impressions: KUB X-Ray 08/23/17 14:58 IMPRESSION: Tip of the NG tube is in the body of the stomach. Assessment & Plan - Diagnosis (1) Acute respiratory failure with hypoxia Is this a current diagnosis for this admission?: Yes (2) COPD exacerbation Is this a current diagnosis for this admission?: Yes Plan: Continue steroid continue nebs management as per pulmonary (3) Diabetes mellitus type 2, controlled Qualifiers: Diabetes mellitus complication status: without complication Diabetes mellitus retirement insulin use: with retirement use Qualified Code(s): E11.9 - Type 2 diabetes mellitus without complications; Z79.4 - group home (current) use of insulin; Z79.4 - terminal makeup operator (current) use of insulin; Z79.4 - terminal makeup operator ( current) use of insulin; Z79.4 - terminal makeup operator (current) use of insulin Is this a current diagnosis for this admission?: Yes (4) INÉS (obstructive sleep apnea) Is this a current diagnosis for this admission?: Yes (5) Hyperkalemia Is this a current diagnosis for this admission?: Yes Plan: Mild K elevation we will just monitor (6) UTI (urinary tract infection) Qualifiers: Urinary tract infection type: site unspecified Is this a current diagnosis for this admission?: Yes Plan: E. coli sensitive to ceftriaxone continue present management - Time Time Spent with patient: 25-34 minutes
--- NOTE | 2017-08-28 10:08 | RADIOLOGY REPORT (SQ) ---
EXAM DESCRIPTION: CHEST SINGLE VIEW CLINICAL HISTORY: 72 years, Female, ETT COMPARISON: 08-27-17. LIMITATIONS: None. FINDINGS: Mixed mild patchiness and mild interstitial markings, normal cardiac silhouette, atherosclerosis, median sternotomy, adequate appearing endotracheal tube tip 3.3 cm from vianney, right jugular miniport central line tip at the cavoatrial junction, and no pneumothorax. IMPRESSION: No significant interval change. 2011 [employer] [facility] [employer]- All Rights Reserved
[2017-08-28] MEDS: METHYLPREDNISOLONE INJ 125 MG/2 ML SDV IV SCH ×2 (11:02→21:06)
[2017-08-28] MEDS: METOPROLOL TARTRATE 25 MG TABLET NG SCH ×2 (11:02→21:06)
[2017-08-28] MEDS: LACTOBACILLUS ACIDOPHILUS 250 MG TAB NG SCH ×2 (11:03→17:33)
[2017-08-28] MEDS: ASCORBIC ACID 500 MG TABLET NG SCH ×2 (11:03→17:33)
[2017-08-28] MEDS: ASPIRIN 81 MG TABLET, CHEWABLE NG SCH (11:03)
[2017-08-28] MEDS: NICOTINE 14 MG/24 HR PATCH.TD24 TD SCH (11:04)
[2017-08-28] MEDS: NITROGLYCERIN 10 MG (0.4 MG/HR) PATCH.TD24 TOP SCH (11:04)
[2017-08-28] MEDS: GUAIFENESIN SYRP 200 MG/10 ML UDC NG SCH ×2 (11:04→17:33)
[2017-08-28] MEDS: AZITHROMYCIN 500 MG in DEXTROSE 5%-WATER 250 ML IV SCH (11:05)
[2017-08-28 11:30] LABS: ARTERIAL BLOOD BASE EXCESS 2.3 mmol/L; ARTERIAL BLOOD FIO2 60%; ARTERIAL BLOOD H2CO3 1.45 mmol/L (1.05-1.35); ARTERIAL BLOOD HCO3 28.1 mmol/L (20-26); ARTERIAL BLOOD O2 SATURATION 94.8 % (94-98); ARTERIAL BLOOD PCO2 48.1 mmHg (35-45); ARTERIAL BLOOD PH 7.39 (7.35-7.45); ARTERIAL BLOOD PO2 75.1 mmHg (80-100); ARTERIAL BLOOD TOTAL CO2 29.6 mmol/L (21-25)
[2017-08-28] MEDS: CEFTRIAXONE 1 GM/D5W RTU 1 GM/50 ML RTUPB IV SCH (17:32)
[2017-08-28] MEDS: ATORVASTATIN CALCIUM 40 MG TABLET NG SCH (21:09)
[2017-08-29] MEDS: IPRATROPIUM/ALBUTEROL 0.5-2.5 MG/3 ML AMPUL NEB SCH ×4 (02:20→19:56)
[2017-08-29] MEDS: PROPOFOL 100 ML IV PRN ×3 (02:28→22:54)
[2017-08-29] MEDS: PREGABALIN 50 MG CAPSULE NG SCH ×3 (05:29→22:55)
[2017-08-29] MEDS: LANSOPRAZOLE 30 MG TAB.RAP.DR PO SCH (05:29)
[2017-08-29] MEDS: HEPARIN SOD (PORCINE) 5,000 UNIT/ML 1 ML SYRINGE SUBCUT SCH ×3 (05:29→22:56)
[2017-08-29 05:43] LABS: HEMATOCRIT 39.2 % (36.0-47.0); HEMOGLOBIN 12.7 g/dL (12.0-15.5); MEAN CORPUSCULAR HEMOGLOBIN 26.2 pg (27.0-33.4); MEAN CORPUSCULAR HGB CONC 32.5 g/dL (32.0-36.0); MEAN CORPUSCULAR VOLUME 81 fl (80-97); PLATELET COUNT 191 10^3/uL (150-450); RED BLOOD COUNT 4.85 10^6/uL (3.72-5.28); RED CELL DISTRIBUTION WIDTH 18.2 % (11.5-14.0)
[2017-08-29 05:56] LABS: ARTERIAL BLOOD BASE EXCESS 4.2 mmol/L; ARTERIAL BLOOD H2CO3 1.36 mmol/L (1.05-1.35); ARTERIAL BLOOD HCO3 29.3 mmol/L (20-26); ARTERIAL BLOOD O2 SATURATION 93.8 % (94-98); ARTERIAL BLOOD PCO2 45.3 mmHg (35-45); ARTERIAL BLOOD PH 7.43 (7.35-7.45); ARTERIAL BLOOD PO2 67.4 mmHg (80-100); ARTERIAL BLOOD TOTAL CO2 30.6 mmol/L (21-25)
[2017-08-29 06:01] LABS: ANION GAP 6 (5-19); ARTERIAL BLOOD FIO2 60%; BLOOD UREA NITROGEN 24 mg/dL (7-20); CALCIUM 8.8 mg/dL (8.4-10.2); CARBON DIOXIDE 29 mmol/L (22-30); CHLORIDE 107 mmol/L (98-107); GLUCOSE 148 mg/dL (75-110); MAGNESIUM 2.5 mg/dL (1.6-2.3); POTASSIUM 4.9 mmol/L (3.6-5.0)
[2017-08-29 06:09] LABS: ABSOLUTE LYMPHOCYTES# (MANUAL) 0.7 10^3/uL (0.5-4.7); ABSOLUTE MONOCYTES # (MANUAL) 0.3 10^3/uL (0.1-1.4); BAND NEUTROPHILS % (MANUAL) 2 % (3-5); BASOPHILS % (MANUAL) 0 % (0-2); EOSINOPHILS % (MANUAL) 0 % (0-6); LYMPHOCYTES % (MANUAL) 4 % (13-45); MONOCYTES % (MANUAL) 3 % (3-13); SEGMENTED NEUTROPHILS % (MAN) 89 % (42-78); TOTAL CELLS COUNTED 100
[2017-08-29 06:10] LABS: ANISOCYTOSIS 2+; PLATELET COMMENT ADEQUATE; TOXIC VACUOLATION PRESENT
[2017-08-29] MEDS: BUDESONIDE NEB 0.5 MG/2 ML AMPUL NEB SCH ×2 (08:05→19:56)
--- NOTE | 2017-08-29 08:17 | RADIOLOGY REPORT (SQ) ---
EXAM DESCRIPTION: CHEST SINGLE VIEW COMPLETED DATE/TIME: 08/29/2017 6:58 am REASON FOR STUDY: acute/chronic resp failure COMPARISON: Chest films 08/25/2017, 08/26/2017, 08/27/2017, 08/28/2017 EXAM PARAMETERS: NUMBER OF VIEWS: One view. TECHNIQUE: Single frontal radiographic view of the chest acquired. RADIATION DOSE: NA LIMITATIONS: None. FINDINGS: Endotracheal tube tip 5 cm above the vianney. Nasogastric tube tip and side port in the stomach Right-sided permanent central line tip superior vena cava. LUNGS AND PLEURA: Right lung is hyperinflated and hyperlucent with minimal airspace disease in the re trocardiac region. Left lung is hyperinflated and hyperlucent with minimal airspace disease at the left base. No pleural effusions. No pneumothorax. MEDIASTINUM AND HILAR STRUCTURES: No masses. Contour normal. 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 HARDWARE: As above OTHER: No other significant finding. IMPRESSION: Stable appearance of the chest compared to previous studies TECHNICAL DOCUMENTATION: JOB ID: [id number] [email or web address]- All Rights Reserved
--- NOTE | 2017-08-29 08:33 | PDOC PROGRESS REPORT ---
Subjective Progress Note for:: 08/29/17 Subjective:: Patient is still intubated and mechanically ventilated She is afebrile and hemodynamically stable Reason For Visit: COPD EXACERBATION,PNEUMONIA,TOBACCO DEP Physical Exam Vital Signs: Temp Pulse Resp BP Pulse Ox 98.2 F 65 20 125/49 L 96 08/29/17 07:44 08/29/17 07:44 08/29/17 07:44 08/29/17 07:44 08/29/17 07:44 Intake & Output 08/28/17 08/29/17 08/30/17 00:59 00:59 00:59 Intake Total 1799 2498 Output Total 2480 2745 765 Balance -681 -247 -765 Weight 83.5 kg 83.3 kg 82.4 kg General appearance: PRESENT: no acute distress, disheveled, thin. ABSENT: cooperative, mild distress, morbidly obese, obese, severe distress Head exam: PRESENT: atraumatic, normocephalic Eye exam: PRESENT: conjunctiva pale. ABSENT: conjunctival injection, conjunctiva pink, scleral icterus Mouth exam: PRESENT: dry mucosa, neck supple, tongue midline, other - ET tube. ABSENT: laceration, moist Neck exam: ABSENT: carotid bruit, JVD, lymphadenopathy, thyromegaly, tracheal deviation, tracheostomy Respiratory exam: PRESENT: decreased breath sounds, prolonged expiratory phas, rales, rhonchi, symmetrical, wheezes. ABSENT: accessory muscle use, chest wall tenderness, clear to auscultation garrison, crackles, retraction, stridor, tachypnea Cardiovascular exam: ABSENT: irregular rhythm Pulses: PRESENT: normal radial pulses GI/Abdominal exam: PRESENT: normal bowel sounds, soft. ABSENT: distended, guarding, mass, organolmegaly, rebound, tenderness Gentrourinary exam: PRESENT: indwelling catheter Extremities exam: ABSENT: clubbing, joint swelling Musculoskeletal exam: ABSENT: ambulatory, deformity, dislocation Neurological exam: ABSENT: alert, awake Skin exam: PRESENT: dry, warm Results Laboratory Results: 08/29/17 05:15 08/29/17 05:15 08/28/17 08/29/17 08/29/17 11:16 05:15 05:15 WBC RBC Hgb Hct MCV MCH MCHC RDW Plt Count Seg Neutrophils % Lymphocytes % Monocytes % Eosinophils % Basophils % Absolute Neutrophils Absolute Lymphocytes Absolute Monocytes Absolute Eosinophils Absolute Basophils Carbonic Acid 1.45 H 1.36 H HCO3/H2CO3 Ratio 19:1 21:1 ABG pH 7.39 7.43 ABG pCO2 48.1 H 45.3 H ABG pO2 75.1 L 67.4 L ABG HCO3 28.1 H 29.3 H ABG O2 Saturation 94.8 93.8 L ABG Base Excess 2.3 4.2 FiO2 60% 60% Sodium 142.0 Potassium 4.9 Chloride 107 Carbon Dioxide 29 Anion Gap 6 BUN 24 H Creatinine 0.48 L Est GFR ( Amer) > 60 Est GFR (Non-Af Amer) > 60 Glucose 148 H Calcium 8.8 Magnesium 2.5 H 08/29/17 05:15 WBC 11.0 H RBC 4.85 Hgb 12.7 Hct 39.2 MCV 81 MCH 26.2 L MCHC 32.5 RDW 18.2 H Plt Count 191 Seg Neutrophils % Not Reportable Lymphocytes % Not Reportable Monocytes % Not Reportable Eosinophils % Not Reportable Basophils % Not Reportable Absolute Neutrophils Not Reportable Absolute Lymphocytes Not Reportable Absolute Monocytes Not Reportable Absolute Eosinophils Not Reportable Absolute Basophils Not Reportable Carbonic Acid HCO3/H2CO3 Ratio ABG pH ABG pCO2 ABG pO2 ABG HCO3 ABG O2 Saturation ABG Base Excess FiO2 Sodium Potassium Chloride Carbon Dioxide Anion Gap BUN Creatinine Est GFR ( Amer) Est GFR (Non-Af Amer) Glucose Calcium Magnesium 08/24/17 08/25/17 06:30 05:20 Troponin I < 0.012 NT-Pro-B Natriuret Pep 795 Impressions: KUB X-Ray 08/23/17 14:58 IMPRESSION: Tip of the NG tube is in the body of the stomach. Chest X-Ray 08/29/17 06:00 IMPRESSION: Stable appearance of the chest compared to previous studies Assessment & Plan - Diagnosis (1) Acute respiratory failure with hypoxia Is this a current diagnosis for this admission?: Yes Plan: Patient still has high O2 requirements Weaning from ventilator may be difficult Management as per Dr. Aguilar (2) COPD exacerbation Is this a current diagnosis for this admission?: Yes Plan: Continue steroids Patient currently on 60 mg of Solu Medrol twice a day (3) Diabetes mellitus type 2, controlled Qualifiers: Diabetes mellitus complication status: without complication Diabetes mellitus termite inspector insulin use: with fdc use Qualified Code(s): E11.9 - Type 2 diabetes mellitus without complications; Z79.4 - termite inspector (current) use of insulin; Z79.4 - senior living (current) use of insulin; Z79.4 - termite inspector ( current) use of insulin; Z79.4 - termite inspector (current) use of insulin Is this a current diagnosis for this admission?: Yes (4) INÉS (obstructive sleep apnea) Is this a current diagnosis for this admission?: Yes (5) Hyperkalemia Is this a current diagnosis for this admission?: Yes Plan: Resolved (6) UTI (urinary tract infection) Qualifiers: Urinary tract infection type: site unspecified Is this a current diagnosis for this admission?: Yes Plan: E. coli pansensitive, sensitive to ceftriaxone (7) Pneumonia Qualifiers: Pneumonia type: due to unspecified organism Laterality: unspecified laterality Lung location: unspecified part of lung Qualified Code(s): J18.9 - Pneumonia, unspecified organism Is this a current diagnosis for this admission?: Yes Plan: Continue ceftriaxone and azithromycin Chest x-ray shows bibasilar infiltrates improving - Time Time Spent with patient: 25-34 minutes
[2017-08-29] MEDS: ASCORBIC ACID 500 MG TABLET NG SCH ×2 (10:07→17:40)
[2017-08-29] MEDS: ASPIRIN 81 MG TABLET, CHEWABLE NG SCH (10:07)
[2017-08-29] MEDS: GUAIFENESIN SYRP 200 MG/10 ML UDC NG SCH ×2 (10:08→17:40)
[2017-08-29] MEDS: LACTOBACILLUS ACIDOPHILUS 250 MG TAB NG SCH ×2 (10:08→17:40)
[2017-08-29] MEDS: METHYLPREDNISOLONE INJ 125 MG/2 ML SDV IV SCH ×2 (10:09→22:54)
--- NOTE | 2017-08-29 10:10 | PDOC PROGRESS REPORT ---
Subjective Progress Note for:: 08/28/17 Subjective:: Intubated and sedated Reason For Visit: COPD EXACERBATION,PNEUMONIA,TOBACCO DEP Physical Exam Vital Signs: Temp Pulse Resp BP Pulse Ox 98.2 F 76 22 H 108/43 L 98 08/28/17 07:40 08/28/17 07:40 08/28/17 07:40 08/28/17 07:40 08/28/17 07:40 Intake & Output 08/27/17 08/28/17 08/29/17 06:59 06:59 06:59 Intake Total 1716 2514 Output Total 2535 2320 250 Balance -819 194 -250 Weight 83.5 kg 83.3 kg General appearance: PRESENT: no acute distress, disheveled, well-developed. ABSENT: cooperative, mild distress, morbidly obese, severe distress Head exam: PRESENT: atraumatic, normocephalic Eye exam: PRESENT: conjunctiva pale. ABSENT: conjunctival injection, conjunctiva pink, EOMI, nystagmus, periorbital swelling, scleral icterus Mouth exam: PRESENT: dry mucosa, neck supple, tongue midline, other - ET tube. ABSENT: laceration, moist Neck exam: ABSENT: carotid bruit, JVD, lymphadenopathy, thyromegaly, tracheal deviation, tracheostomy Respiratory exam: PRESENT: decreased breath sounds, prolonged expiratory phas, rhonchi, symmetrical, unlabored, wheezes. ABSENT: accessory muscle use, chest wall tenderness, clear to auscultation garrison, crackles, rales, stridor, tachypnea Cardiovascular exam: PRESENT: RRR, +S1, +S2 Pulses: PRESENT: normal radial pulses GI/Abdominal exam: PRESENT: normal bowel sounds, soft. ABSENT: distended, guarding, mass, organolmegaly, rebound, tenderness Extremities exam: ABSENT: clubbing, joint swelling Musculoskeletal exam: ABSENT: ambulatory, deformity, dislocation Skin exam: PRESENT: dry, warm Results Laboratory Results: 08/28/17 04:50 08/28/17 04:50 08/28/17 08/28/17 08/28/17 04:50 04:50 04:50 WBC 11.4 H RBC 4.81 Hgb 12.3 Hct 39.0 MCV 81 MCH 25.6 L MCHC 31.6 L RDW 18.1 H Plt Count 197 Seg Neutrophils % 88.8 H Lymphocytes % 7.4 L Monocytes % 3.6 Eosinophils % 0.0 Basophils % 0.2 Absolute Neutrophils 10.1 H Absolute Lymphocytes 0.8 Absolute Monocytes 0.4 Absolute Eosinophils 0.0 Absolute Basophils 0.0 Carbonic Acid 1.48 H HCO3/H2CO3 Ratio 18:1 ABG pH 7.37 ABG pCO2 49.1 H ABG pO2 64.4 L ABG HCO3 27.7 H ABG O2 Saturation 91.8 L ABG Base Excess 1.7 FiO2 60% Sodium 143.7 Potassium 5.4 H Chloride 109 H Carbon Dioxide 28 Anion Gap 7 BUN 23 H Creatinine 0.59 Est GFR ( Amer) > 60 Est GFR (Non-Af Amer) > 60 Glucose 163 H Calcium 9.1 Magnesium 2.6 H 08/24/17 08/25/17 06:30 05:20 Troponin I < 0.012 NT-Pro-B Natriuret Pep 795 Impressions: KUB X-Ray 08/23/17 14:58 IMPRESSION: Tip of the NG tube is in the body of the stomach. Assessment & Plan - Diagnosis (1) Acute respiratory failure with hypoxia Is this a current diagnosis for this admission?: Yes Plan: day 5 intubation (2) INÉS (obstructive sleep apnea) Is this a current diagnosis for this admission?: Yes Plan: after extubation NIPPV (3) Acute and chronic respiratory failure with hypercapnia Is this a current diagnosis for this admission?: Yes Plan: change to SIMV w/PRVC decrease PeeP as tolerated (4) GERD (gastroesophageal reflux disease) Qualifiers: Esophagitis presence: without esophagitis Qualified Code(s): K21.9 - Gastro -esophageal reflux disease without esophagitis Is this a current diagnosis for this admission?: Yes Plan: ppi (5) Opiate dependence, continuous Is this a current diagnosis for this admission?: Yes Plan: home meds (6) CHF (congestive heart failure) Qualifiers: Congestive heart failure type: unspecified congestive heart failure type Congestive heart failure chronicity: chronic Qualified Code(s): I50.9 - Heart failure, unspecified Is this a current diagnosis for this admission?: Yes Plan: continue current tx (7) Pulmonary hypertension Is this a current diagnosis for this admission?: Yes Plan: INÉS chronic hypoxia (8) Tobacco dependency Is this a current diagnosis for this admission?: Yes Plan: transdermal nicotine - Time Total Critical Time (Minutes): 40
[2017-08-29] MEDS: METOPROLOL TARTRATE 25 MG TABLET NG SCH ×2 (10:14→22:55)
[2017-08-29] MEDS: NICOTINE 14 MG/24 HR PATCH.TD24 TD SCH (10:15)
[2017-08-29] MEDS: AZITHROMYCIN 500 MG in DEXTROSE 5%-WATER 250 ML IV SCH (10:15)
[2017-08-29] MEDS: NITROGLYCERIN 10 MG (0.4 MG/HR) PATCH.TD24 TOP SCH (10:15)
--- NOTE | 2017-08-29 10:15 | PDOC PROGRESS REPORT ---
Subjective Progress Note for:: 08/29/17 Subjective:: Intubated and sedated Reason For Visit: COPD EXACERBATION,PNEUMONIA,TOBACCO DEP Physical Exam Vital Signs: Temp Pulse Resp BP Pulse Ox 98.2 F 75 22 H 125/49 L 94 08/29/17 07:44 08/29/17 08:05 08/29/17 08:05 08/29/17 07:44 08/29/17 08:05 Intake & Output 08/28/17 08/29/17 08/30/17 06:59 06:59 06:59 Intake Total 2514 1104 Output Total 2320 0450 225 Balance 194 -1806 -225 Weight 83.3 kg 82.4 kg General appearance: PRESENT: no acute distress, disheveled, well-developed. ABSENT: cooperative, mild distress, morbidly obese, severe distress Head exam: PRESENT: atraumatic, normocephalic Eye exam: PRESENT: conjunctiva pale, EOMI. ABSENT: conjunctival injection, conjunctiva pink, nystagmus, periorbital swelling, scleral icterus Mouth exam: PRESENT: dry mucosa, neck supple, tongue midline, other - ET tube. ABSENT: laceration, moist Neck exam: ABSENT: carotid bruit, JVD, lymphadenopathy, thyromegaly, tracheal deviation, tracheostomy Respiratory exam: PRESENT: decreased breath sounds, prolonged expiratory phas, rales, rhonchi, symmetrical, unlabored, wheezes. ABSENT: accessory muscle use, chest wall tenderness, clear to auscultation garrison, crackles, retraction, stridor , tachypnea Cardiovascular exam: PRESENT: RRR, +S1, +S2 - [id number] Pulses: PRESENT: normal radial pulses GI/Abdominal exam: PRESENT: normal bowel sounds, soft. ABSENT: distended, guarding, mass, organolmegaly, rebound, tenderness Gentrourinary exam: PRESENT: indwelling catheter Extremities exam: ABSENT: clubbing, joint swelling Musculoskeletal exam: ABSENT: ambulatory, deformity, dislocation Neurological exam: ABSENT: alert, awake Skin exam: PRESENT: dry, warm Results Laboratory Results: 08/29/17 05:15 08/29/17 05:15 08/28/17 08/29/17 08/29/17 11:16 05:15 05:15 WBC RBC Hgb Hct MCV MCH MCHC RDW Plt Count Seg Neutrophils % Lymphocytes % Monocytes % Eosinophils % Basophils % Absolute Neutrophils Absolute Lymphocytes Absolute Monocytes Absolute Eosinophils Absolute Basophils Carbonic Acid 1.45 H 1.36 H HCO3/H2CO3 Ratio 19:1 21:1 ABG pH 7.39 7.43 ABG pCO2 48.1 H 45.3 H ABG pO2 75.1 L 67.4 L ABG HCO3 28.1 H 29.3 H ABG O2 Saturation 94.8 93.8 L ABG Base Excess 2.3 4.2 FiO2 60% 60% Sodium 142.0 Potassium 4.9 Chloride 107 Carbon Dioxide 29 Anion Gap 6 BUN 24 H Creatinine 0.48 L Est GFR ( Amer) > 60 Est GFR (Non-Af Amer) > 60 Glucose 148 H Calcium 8.8 Magnesium 2.5 H 08/29/17 05:15 WBC 11.0 H RBC 4.85 Hgb 12.7 Hct 39.2 MCV 81 MCH 26.2 L MCHC 32.5 RDW 18.2 H Plt Count 191 Seg Neutrophils % Not Reportable Lymphocytes % Not Reportable Monocytes % Not Reportable Eosinophils % Not Reportable Basophils % Not Reportable Absolute Neutrophils Not Reportable Absolute Lymphocytes Not Reportable Absolute Monocytes Not Reportable Absolute Eosinophils Not Reportable Absolute Basophils Not Reportable Carbonic Acid HCO3/H2CO3 Ratio ABG pH ABG pCO2 ABG pO2 ABG HCO3 ABG O2 Saturation ABG Base Excess FiO2 Sodium Potassium Chloride Carbon Dioxide Anion Gap BUN Creatinine Est GFR ( Amer) Est GFR (Non-Af Amer) Glucose Calcium Magnesium 08/24/17 08/25/17 06:30 05:20 Troponin I < 0.012 NT-Pro-B Natriuret Pep 795 Impressions: KUB X-Ray 08/23/17 14:58 IMPRESSION: Tip of the NG tube is in the body of the stomach. Chest X-Ray 08/29/17 06:00 IMPRESSION: Stable appearance of the chest compared to previous studies Assessment & Plan - Diagnosis (1) Acute respiratory failure with hypoxia Is this a current diagnosis for this admission?: Yes Plan: day 6 intubation (2) INÉS (obstructive sleep apnea) Is this a current diagnosis for this admission?: Yes (3) Acute and chronic respiratory failure with hypercapnia Is this a current diagnosis for this admission?: Yes Plan: does not tolerate decrease in peep or fio2 (4) GERD (gastroesophageal reflux disease) Qualifiers: Esophagitis presence: without esophagitis Qualified Code(s): K21.9 - Gastro -esophageal reflux disease without esophagitis Is this a current diagnosis for this admission?: Yes Plan: ppi (5) Opiate dependence, continuous Is this a current diagnosis for this admission?: Yes Plan: home meds (6) CHF (congestive heart failure) Qualifiers: Congestive heart failure type: unspecified congestive heart failure type Congestive heart failure chronicity: chronic Qualified Code(s): I50.9 - Heart failure, unspecified Is this a current diagnosis for this admission?: Yes Plan: continue current tx (7) Pulmonary hypertension Is this a current diagnosis for this admission?: Yes Plan: INÉS chronic hypoxia (8) Tobacco dependency Is this a current diagnosis for this admission?: Yes Plan: transdermal nicotine - Time Total Critical Time (Minutes): 40
--- NOTE | 2017-08-29 10:20 | PDOC PROGRESS REPORT ---
Subjective Progress Note for:: 08/26/17 Subjective:: intubated Reason For Visit: COPD EXACERBATION,PNEUMONIA,TOBACCO DEP Physical Exam Vital Signs: Temp Pulse Resp BP Pulse Ox 98.4 F 79 20 117/50 L 92 08/26/17 08:00 08/26/17 08:00 08/26/17 08:00 08/26/17 08:00 08/26/17 08:00 Intake & Output 08/25/17 08/26/17 08/27/17 06:59 06:59 06:59 Intake Total 2628 1934 Output Total 2065 1640 Balance 563 294 Weight 80.3 kg 83.1 kg General appearance: PRESENT: no acute distress, disheveled. ABSENT: cooperative , mild distress, morbidly obese Head exam: PRESENT: atraumatic, normocephalic Eye exam: PRESENT: conjunctiva pale. ABSENT: conjunctival injection, conjunctiva pink, EOMI, nystagmus, periorbital swelling, scleral icterus Mouth exam: PRESENT: dry mucosa, neck supple, tongue midline, other - ET tube. ABSENT: laceration, moist Neck exam: ABSENT: carotid bruit, JVD, lymphadenopathy, thyromegaly, tracheal deviation, tracheostomy Respiratory exam: PRESENT: decreased breath sounds, prolonged expiratory phas, rales, rhonchi, symmetrical, unlabored, wheezes. ABSENT: accessory muscle use, chest wall tenderness, clear to auscultation garrison, crackles, retraction, stridor , tachypnea Cardiovascular exam: PRESENT: RRR, +S1, +S2 Pulses: PRESENT: normal radial pulses GI/Abdominal exam: PRESENT: normal bowel sounds, soft. ABSENT: distended, guarding, mass, organolmegaly, rebound, tenderness Extremities exam: ABSENT: clubbing, joint swelling Musculoskeletal exam: ABSENT: ambulatory, deformity, dislocation Neurological exam: ABSENT: alert, awake Skin exam: PRESENT: dry, warm Results Laboratory Results: 08/26/17 05:50 08/26/17 05:50 08/26/17 08/26/17 08/26/17 05:50 05:50 05:50 WBC 10.3 RBC 4.85 Hgb 12.6 Hct 39.2 MCV 81 MCH 26.0 L MCHC 32.2 RDW 18.1 H Plt Count 223 Seg Neutrophils % 92.0 H Lymphocytes % 5.9 L Monocytes % 2.1 L Eosinophils % 0.0 Basophils % 0.0 Absolute Neutrophils 9.5 H Absolute Lymphocytes 0.6 Absolute Monocytes 0.2 Absolute Eosinophils 0.0 Absolute Basophils 0.0 Carbonic Acid 1.14 HCO3/H2CO3 Ratio 20:1 ABG pH 7.40 ABG pCO2 37.9 ABG pO2 60.6 L ABG HCO3 22.8 ABG O2 Saturation 91.3 L ABG Base Excess -1.7 FiO2 45% Sodium 143.5 Potassium 4.9 Chloride 113 H Carbon Dioxide 23 Anion Gap 8 BUN 21 H Creatinine 0.69 Est GFR ( Amer) > 60 Est GFR (Non-Af Amer) > 60 Glucose 159 H Calcium 9.0 Magnesium 2.6 H 08/23/17 19:01 Sputum Gram Stain - Final 08/23/17 19:01 Sputum Sputum Culture - Final NORMAL MIRYAM 08/23/17 18:32 Nasophary ([facility] Only) MRSA Surveillance Culture - Final NO MRSA RECOVERED 08/23/17 15:45 Catheterized Urine Urine Culture - Final Escherichia Coli 08/24/17 08/25/17 06:30 05:20 Troponin I < 0.012 NT-Pro-B Natriuret Pep 795 Impressions: KUB X-Ray 08/23/17 14:58 IMPRESSION: Tip of the NG tube is in the body of the stomach. Chest X-Ray 08/26/17 06:00 IMPRESSION: 1. Stable appearance of the chest. Assessment & Plan - Diagnosis (1) Acute respiratory failure with hypoxia Is this a current diagnosis for this admission?: Yes Plan: day 3 intubation (2) INÉS (obstructive sleep apnea) Is this a current diagnosis for this admission?: Yes (3) Acute and chronic respiratory failure with hypercapnia Is this a current diagnosis for this admission?: Yes (4) GERD (gastroesophageal reflux disease) Qualifiers: Esophagitis presence: without esophagitis Qualified Code(s): K21.9 - Gastro -esophageal reflux disease without esophagitis Is this a current diagnosis for this admission?: Yes (5) Opiate dependence, continuous Is this a current diagnosis for this admission?: Yes (6) CHF (congestive heart failure) Qualifiers: Congestive heart failure type: unspecified congestive heart failure type Congestive heart failure chronicity: chronic Qualified Code(s): I50.9 - Heart failure, unspecified Is this a current diagnosis for this admission?: Yes (7) Pulmonary hypertension Is this a current diagnosis for this admission?: Yes (8) Tobacco dependency Is this a current diagnosis for this admission?: Yes - Time Total Critical Time (Minutes): 40
--- NOTE | 2017-08-29 11:18 | RADIOLOGY REPORT (SQ) ---
EXAM DESCRIPTION: KUB/ABDOMEN (SINGLE VIEW) COMPLETED DATE/TIME: 08/29/2017 11:03 am REASON FOR STUDY: ngt placement COMPARISON: 08/23/2017 TECHNIQUE: AP view of the lower thorax and upper abdomen LIMITATIONS: None. FINDINGS: NG tube is identified coiled in the left upper quadrant presumably in the stomach IMPRESSION: NG tube with its tip in the left upper quadrant presumably in the stomach. TECHNICAL DOCUMENTATION: JOB ID: [id number] [employer]- All Rights Reserved
[2017-08-29] MEDS ORDERED: PHARMACY COMMUNICATION ORDER MC NR (11:30)
[2017-08-29] MEDS: BISACODYL 10 MG SUPP.RECT PR PRN (17:41)
[2017-08-29] MEDS: CEFTRIAXONE SODIUM 1,000 MG in DEXTROSE 5%-WATER 50 ML IV SCH (18:05)
[2017-08-29] MEDS: INSULIN LISPRO 100 UNIT/ML 3 ML VIAL SUBCUT PRN (18:07)
[2017-08-29] MEDS: ATORVASTATIN CALCIUM 40 MG TABLET NG SCH (22:55)
[2017-08-30] MEDS: PROPOFOL 100 ML IV PRN ×6 (00:19→20:43)
[2017-08-30] MEDS: IPRATROPIUM/ALBUTEROL 0.5-2.5 MG/3 ML AMPUL NEB SCH ×4 (01:05→19:29)
[2017-08-30 05:57] LABS: HEMATOCRIT 40.6 % (36.0-47.0); HEMOGLOBIN 12.9 g/dL (12.0-15.5); MEAN CORPUSCULAR HEMOGLOBIN 25.7 pg (27.0-33.4); MEAN CORPUSCULAR HGB CONC 31.8 g/dL (32.0-36.0); MEAN CORPUSCULAR VOLUME 81 fl (80-97); PLATELET COUNT 194 10^3/uL (150-450); RED BLOOD COUNT 5.01 10^6/uL (3.72-5.28); RED CELL DISTRIBUTION WIDTH 18.1 % (11.5-14.0); WHITE BLOOD COUNT 12.3 10^3/uL (4.0-10.5)
[2017-08-30 05:59] LABS: ARTERIAL BLOOD BASE EXCESS 2.6 mmol/L; ARTERIAL BLOOD H2CO3 1.27 mmol/L (1.05-1.35); ARTERIAL BLOOD HCO3 27.3 mmol/L (20-26); ARTERIAL BLOOD O2 SATURATION 93.5 % (94-98); ARTERIAL BLOOD PCO2 42.2 mmHg (35-45); ARTERIAL BLOOD PH 7.43 (7.35-7.45); ARTERIAL BLOOD TOTAL CO2 28.6 mmol/L (21-25)
[2017-08-30 06:00] LABS: ARTERIAL BLOOD FIO2 60%
[2017-08-30 06:14] LABS: ANION GAP 6 (5-19); BLOOD UREA NITROGEN 26 mg/dL (7-20); CALCIUM 8.8 mg/dL (8.4-10.2); CARBON DIOXIDE 29 mmol/L (22-30); CHLORIDE 106 mmol/L (98-107); GLUCOSE 156 mg/dL (75-110); MAGNESIUM 2.4 mg/dL (1.6-2.3); POTASSIUM 4.9 mmol/L (3.6-5.0); SODIUM 140.7 mmol/L (137-145); TRIGLYCERIDES 210 mg/dL (<150)
[2017-08-30] MEDS: LANSOPRAZOLE 30 MG TAB.RAP.DR PO SCH (06:21)
[2017-08-30] MEDS: HEPARIN SOD (PORCINE) 5,000 UNIT/ML 1 ML SYRINGE SUBCUT SCH ×3 (06:21→22:42)
[2017-08-30] MEDS: PREGABALIN 50 MG CAPSULE NG SCH ×3 (06:21→22:43)
[2017-08-30 06:24] LABS: ABSOLUTE LYMPHOCYTES# (MANUAL) 0.9 10^3/uL (0.5-4.7); ABSOLUTE MONOCYTES # (MANUAL) 0.2 10^3/uL (0.1-1.4); ABSOLUTE NEUTROPHILS# (MANUAL) 11.2 10^3/uL (1.7-8.2); BASOPHILS % (MANUAL) 0 % (0-2); EOSINOPHILS % (MANUAL) 0 % (0-6); LYMPHOCYTES % (MANUAL) 7 % (13-45); METAMYELOCYTES % (MANUAL) 1 % (0); MONOCYTES % (MANUAL) 2 % (3-13); SEGMENTED NEUTROPHILS % (MAN) 90 % (42-78); TOTAL CELLS COUNTED 100
[2017-08-30 06:25] LABS: ANISOCYTOSIS 2+; OVALOCYTES SLIGHT; PLATELET COMMENT ADEQUATE; POIKILOCYTOSIS SLIGHT
--- NOTE | 2017-08-30 07:53 | PDOC PROGRESS REPORT ---
Subjective Progress Note for:: 08/30/17 Subjective:: Patient is still intubated and mechanically ventilated She is still on 60% FiO2 She is sedated on tube feedings Reason For Visit: COPD EXACERBATION,PNEUMONIA,TOBACCO DEP Physical Exam Vital Signs: Temp Pulse Resp BP Pulse Ox 98.1 F 65 21 H 125/47 L 95 08/30/17 06:00 08/30/17 01:10 08/30/17 06:00 08/30/17 05:45 08/30/17 06:00 Intake & Output 08/29/17 08/30/17 08/31/17 00:59 00:59 00:59 Intake Total 2498 1537 1164 Output Total 2745 2865 475 Balance -247 -8047 689 Weight 83.3 kg 82.4 kg 82.3 kg General appearance: PRESENT: no acute distress, obese Head exam: PRESENT: atraumatic - 1, normocephalic Eye exam: PRESENT: conjunctiva pink, EOMI, PERRLA. ABSENT: scleral icterus Respiratory exam: PRESENT: decreased breath sounds. ABSENT: accessory muscle use, rhonchi, tachypnea, wheezes Cardiovascular exam: PRESENT: RRR. ABSENT: diastolic murmur, rubs, systolic murmur Vascular exam: PRESENT: normal capillary refill GI/Abdominal exam: PRESENT: normal bowel sounds, soft. ABSENT: distended, guarding, mass, organolmegaly, rebound, tenderness Extremities exam: PRESENT: full ROM. ABSENT: calf tenderness, clubbing, pedal edema Results Laboratory Results: 08/30/17 05:40 08/30/17 05:40 08/30/17 08/30/17 08/30/17 05:40 05:40 05:40 WBC 12.3 H RBC 5.01 Hgb 12.9 Hct 40.6 MCV 81 MCH 25.7 L MCHC 31.8 L RDW 18.1 H Plt Count 194 Seg Neutrophils % Not Reportable Lymphocytes % Not Reportable Monocytes % Not Reportable Eosinophils % Not Reportable Basophils % Not Reportable Absolute Neutrophils Not Reportable Absolute Lymphocytes Not Reportable Absolute Monocytes Not Reportable Absolute Eosinophils Not Reportable Absolute Basophils Not Reportable Carbonic Acid 1.27 HCO3/H2CO3 Ratio 21:1 ABG pH 7.43 ABG pCO2 42.2 ABG pO2 66.0 L ABG HCO3 27.3 H ABG O2 Saturation 93.5 L ABG Base Excess 2.6 FiO2 60% Sodium 140.7 Potassium 4.9 Chloride 106 Carbon Dioxide 29 Anion Gap 6 BUN 26 H Creatinine 0.56 Est GFR ( Amer) > 60 Est GFR (Non-Af Amer) > 60 Glucose 156 H Calcium 8.8 Magnesium 2.4 H Triglycerides 210 H 08/24/17 08/25/17 06:30 05:20 Troponin I < 0.012 NT-Pro-B Natriuret Pep 795 Impressions: KUB X-Ray 08/29/17 00:00 IMPRESSION: NG tube with its tip in the left upper quadrant presumably in the stomach. Chest X-Ray 08/29/17 06:00 IMPRESSION: Stable appearance of the chest compared to previous studies Assessment & Plan - Diagnosis (1) Acute respiratory failure with hypoxia Is this a current diagnosis for this admission?: Yes Plan: Acute on chronic respiratory failure secondary to COPD exacerbation and pneumonia There is very little clinical improvement after 1 week and weaning from the ventilator has not been possible At this point patient may be a candidate for tracheostomy and continued ventilation if it is the desire. We will have a meeting later with Dr. Aguilar in the family to decide on level of care to be provided (2) COPD exacerbation Is this a current diagnosis for this admission?: Yes (3) Diabetes mellitus type 2, controlled Qualifiers: Diabetes mellitus complication status: without complication Diabetes mellitus medical terminologist insulin use: with jail use Qualified Code(s): E11.9 - Type 2 diabetes mellitus without complications; Z79.4 - rat exterminator (current) use of insulin; Z79.4 - rat exterminator (current) use of insulin; Z79.4 - jail ( current) use of insulin; Z79.4 - jail (current) use of insulin Is this a current diagnosis for this admission?: Yes Plan: Fairly well controlled continue present management (4) INÉS (obstructive sleep apnea) Is this a current diagnosis for this admission?: Yes (5) Hyperkalemia Is this a current diagnosis for this admission?: Yes Plan: Has resolved (6) UTI (urinary tract infection) Qualifiers: Urinary tract infection type: site unspecified Is this a current diagnosis for this admission?: Yes Plan: E. coli sensitive to ceftriaxone Continue present antibiotics (7) Pneumonia Qualifiers: Pneumonia type: due to unspecified organism Laterality: unspecified laterality Lung location: unspecified part of lung Qualified Code(s): J18.9 - Pneumonia, unspecified organism Is this a current diagnosis for this admission?: Yes Plan: Cultures of the sputum just showed normal jean Chest x-ray showed minimal airspace disease bilaterally ; patient has no fever , no leukocytosis Continue present antibiotic management There is no evidence of gram-negative pneumonia - Time Time Spent with patient: 25-34 minutes - Plan Summary Plan Summary: Unfortunately future is going for this patient if she needs tracheostomy and ventilator dependence Family meeting with Dr. Aguilar , and her will be scheduled later today
[2017-08-30] MEDS: BUDESONIDE NEB 0.5 MG/2 ML AMPUL NEB SCH ×2 (08:09→19:29)
[2017-08-30] MEDS: LACTOBACILLUS ACIDOPHILUS 250 MG TAB NG SCH ×2 (10:31→18:25)
[2017-08-30] MEDS: METOPROLOL TARTRATE 25 MG TABLET NG SCH ×2 (10:32→22:43)
[2017-08-30] MEDS: ASPIRIN 81 MG TABLET, CHEWABLE NG SCH (10:33)
[2017-08-30] MEDS: ASCORBIC ACID 500 MG TABLET NG SCH ×2 (10:33→18:26)
[2017-08-30] MEDS: GUAIFENESIN SYRP 200 MG/10 ML UDC NG SCH ×2 (10:33→18:26)
[2017-08-30] MEDS: METHYLPREDNISOLONE INJ 125 MG/2 ML SDV IV SCH ×2 (10:34→22:43)
[2017-08-30] MEDS: NICOTINE 14 MG/24 HR PATCH.TD24 TD SCH (10:34)
[2017-08-30] MEDS: NITROGLYCERIN 10 MG (0.4 MG/HR) PATCH.TD24 TOP SCH (10:34)
[2017-08-30] MEDS: AZITHROMYCIN 500 MG in DEXTROSE 5%-WATER 250 ML IV SCH (11:35)
--- NOTE | 2017-08-30 13:12 | PDOC PROGRESS REPORT ---
Subjective Progress Note for:: 08/30/17 Subjective:: intubated Reason For Visit: COPD EXACERBATION,PNEUMONIA,TOBACCO DEP Physical Exam Vital Signs: Temp Pulse Resp BP Pulse Ox 98.6 F 63 22 H 123/50 L 94 08/30/17 08:00 08/30/17 08:00 08/30/17 08:00 08/30/17 08:00 08/30/17 08:00 Intake & Output 08/29/17 08/30/17 08/31/17 06:59 06:59 06:59 Intake Total 1104 2701 Output Total 2910 2800 400 Balance -1806 -99 -400 Weight 82.4 kg 82.3 kg General appearance: PRESENT: no acute distress, disheveled, well-developed. ABSENT: cooperative, mild distress, morbidly obese, severe distress Head exam: PRESENT: atraumatic, normocephalic Eye exam: PRESENT: conjunctiva pale, EOMI. ABSENT: conjunctival injection, conjunctiva pink, nystagmus, periorbital swelling, scleral icterus Mouth exam: PRESENT: dry mucosa, neck supple, tongue midline, other - ET tube. ABSENT: laceration, moist Neck exam: ABSENT: carotid bruit, JVD, lymphadenopathy, thyromegaly, tracheal deviation, tracheostomy Respiratory exam: PRESENT: decreased breath sounds, prolonged expiratory phas, rales, rhonchi, symmetrical, unlabored, wheezes. ABSENT: accessory muscle use, chest wall tenderness, clear to auscultation garrison, crackles, retraction, stridor , tachypnea Cardiovascular exam: PRESENT: RRR, +S1, +S2 Pulses: PRESENT: normal radial pulses GI/Abdominal exam: PRESENT: normal bowel sounds, soft. ABSENT: distended, guarding, mass, organolmegaly, rebound, tenderness Gentrourinary exam: PRESENT: indwelling catheter Extremities exam: ABSENT: clubbing, joint swelling Musculoskeletal exam: ABSENT: ambulatory, deformity, dislocation Skin exam: PRESENT: dry, warm Results Laboratory Results: 08/30/17 05:40 08/30/17 05:40 08/30/17 08/30/17 08/30/17 05:40 05:40 05:40 WBC 12.3 H RBC 5.01 Hgb 12.9 Hct 40.6 MCV 81 MCH 25.7 L MCHC 31.8 L RDW 18.1 H Plt Count 194 Seg Neutrophils % Not Reportable Lymphocytes % Not Reportable Monocytes % Not Reportable Eosinophils % Not Reportable Basophils % Not Reportable Absolute Neutrophils Not Reportable Absolute Lymphocytes Not Reportable Absolute Monocytes Not Reportable Absolute Eosinophils Not Reportable Absolute Basophils Not Reportable Carbonic Acid 1.27 HCO3/H2CO3 Ratio 21:1 ABG pH 7.43 ABG pCO2 42.2 ABG pO2 66.0 L ABG HCO3 27.3 H ABG O2 Saturation 93.5 L ABG Base Excess 2.6 FiO2 60% Sodium 140.7 Potassium 4.9 Chloride 106 Carbon Dioxide 29 Anion Gap 6 BUN 26 H Creatinine 0.56 Est GFR ( Amer) > 60 Est GFR (Non-Af Amer) > 60 Glucose 156 H Calcium 8.8 Magnesium 2.4 H Triglycerides 210 H 08/24/17 08/25/17 06:30 05:20 Troponin I < 0.012 NT-Pro-B Natriuret Pep 795 Impressions: KUB X-Ray 08/29/17 00:00 IMPRESSION: NG tube with its tip in the left upper quadrant presumably in the stomach. Chest X-Ray 08/29/17 06:00 IMPRESSION: Stable appearance of the chest compared to previous studies Assessment & Plan - Diagnosis (1) Acute respiratory failure with hypoxia Is this a current diagnosis for this admission?: Yes Plan: intubated 08-23-17 D#8 long-term prognosis poor (2) INÉS (obstructive sleep apnea) Is this a current diagnosis for this admission?: Yes Plan: after extubation NIPPV (3) Acute and chronic respiratory failure with hypercapnia Is this a current diagnosis for this admission?: Yes Plan: Requires high FiO2 hypercapnia resolved with average minute ventilation (4) GERD (gastroesophageal reflux disease) Qualifiers: Esophagitis presence: without esophagitis Qualified Code(s): K21.9 - Gastro -esophageal reflux disease without esophagitis Is this a current diagnosis for this admission?: Yes Plan: ppi (5) Opiate dependence, continuous Is this a current diagnosis for this admission?: Yes Plan: home meds (6) CHF (congestive heart failure) Qualifiers: Congestive heart failure type: unspecified congestive heart failure type Congestive heart failure chronicity: chronic Qualified Code(s): I50.9 - Heart failure, unspecified Is this a current diagnosis for this admission?: Yes Plan: continue current tx (7) Pulmonary hypertension Is this a current diagnosis for this admission?: Yes (8) Tobacco dependency Is this a current diagnosis for this admission?: Yes Plan: transdermal nicotine
[2017-08-30] MEDS: CEFTRIAXONE SODIUM 1,000 MG in DEXTROSE 5%-WATER 50 ML IV SCH (18:26)
[2017-08-30] MEDS: ATORVASTATIN CALCIUM 40 MG TABLET NG SCH (22:43)
[2017-08-31] MEDS: PROPOFOL 100 ML IV PRN ×6 (00:16→18:43)
[2017-08-31] MEDS: IPRATROPIUM/ALBUTEROL 0.5-2.5 MG/3 ML AMPUL NEB SCH ×4 (02:29→20:10)
[2017-08-31 05:50] LABS: ARTERIAL BLOOD BASE EXCESS 4.7 mmol/L; ARTERIAL BLOOD H2CO3 1.27 mmol/L (1.05-1.35); ARTERIAL BLOOD HCO3 29.1 mmol/L (20-26); ARTERIAL BLOOD O2 SATURATION 90.6 % (94-98); ARTERIAL BLOOD PCO2 42.1 mmHg (35-45); ARTERIAL BLOOD PH 7.46 (7.35-7.45); ARTERIAL BLOOD PO2 56.1 mmHg (80-100); ARTERIAL BLOOD TOTAL CO2 30.4 mmol/L (21-25)
[2017-08-31 05:54] LABS: HEMATOCRIT 40.5 % (36.0-47.0); HEMOGLOBIN 13.2 g/dL (12.0-15.5); MEAN CORPUSCULAR HEMOGLOBIN 25.9 pg (27.0-33.4); MEAN CORPUSCULAR HGB CONC 32.6 g/dL (32.0-36.0); MEAN CORPUSCULAR VOLUME 80 fl (80-97); RED CELL DISTRIBUTION WIDTH 18.2 % (11.5-14.0); WHITE BLOOD COUNT 10.1 10^3/uL (4.0-10.5)
[2017-08-31 06:00] LABS: ANION GAP 8 (5-19); BLOOD UREA NITROGEN 28 mg/dL (7-20); CALCIUM 8.7 mg/dL (8.4-10.2); CARBON DIOXIDE 29 mmol/L (22-30); CHLORIDE 107 mmol/L (98-107); GLUCOSE 143 mg/dL (75-110); POTASSIUM 4.4 mmol/L (3.6-5.0); SODIUM 143.5 mmol/L (137-145)
[2017-08-31] MEDS: PREGABALIN 50 MG CAPSULE NG SCH ×3 (06:04→22:40)
[2017-08-31] MEDS: LANSOPRAZOLE 30 MG TAB.RAP.DR PO SCH (06:04)
[2017-08-31] MEDS: HEPARIN SOD (PORCINE) 5,000 UNIT/ML 1 ML SYRINGE SUBCUT SCH ×3 (06:05→22:42)
[2017-08-31 06:15] LABS: ABSOLUTE LYMPHOCYTES# (MANUAL) 0.8 10^3/uL (0.5-4.7); ABSOLUTE MONOCYTES # (MANUAL) 0.3 10^3/uL (0.1-1.4); BASOPHILS % (MANUAL) 0 % (0-2); EOSINOPHILS % (MANUAL) 0 % (0-6); LYMPHOCYTES % (MANUAL) 7 % (13-45); MONOCYTES % (MANUAL) 3 % (3-13); SEGMENTED NEUTROPHILS % (MAN) 89 % (42-78); TOTAL CELLS COUNTED 100
[2017-08-31 06:17] LABS: ACANTHOCYTES SLIGHT; ANISOCYTOSIS 2+; HYPOCHROMASIA 1+; OVALOCYTES 1+; PLATELET CLUMPS PRESENT; PLATELET COMMENT ADEQUATE; POIKILOCYTOSIS 2+; TEAR DROP CELLS 1+
[2017-08-31 06:18] LABS: PLATELET COUNT 193 10^3/uL (150-450)
--- NOTE | 2017-08-31 07:48 | PDOC PROGRESS REPORT ---
Subjective Progress Note for:: 08/31/17 Subjective:: Patient intubated and sedated. Reason For Visit: COPD EXACERBATION,PNEUMONIA,TOBACCO DEP Physical Exam Vital Signs: Temp Pulse Resp BP Pulse Ox 98.4 F 60 20 139/48 H 90 L 08/31/17 06:00 08/31/17 02:29 08/31/17 06:00 08/31/17 05:47 08/31/17 06:00 Intake & Output 08/30/17 08/31/17 09/01/17 06:59 06:59 06:59 Intake Total 2701 1851 Output Total 2800 4485 Balance -99 -644 Weight 82.3 kg 82 kg General appearance: PRESENT: no acute distress, well-developed, well-nourished Head exam: PRESENT: atraumatic, normocephalic Eye exam: PRESENT: conjunctiva pink, PERRLA. ABSENT: scleral icterus Ear exam: PRESENT: normal external ear exam Mouth exam: PRESENT: moist, other - intubated Neck exam: ABSENT: carotid bruit, JVD, lymphadenopathy, thyromegaly Respiratory exam: PRESENT: clear to auscultation garrison. ABSENT: rales, rhonchi, wheezes Cardiovascular exam: PRESENT: RRR. ABSENT: diastolic murmur, rubs, systolic murmur Pulses: PRESENT: normal dorsalis pedis pul Vascular exam: PRESENT: normal capillary refill GI/Abdominal exam: PRESENT: normal bowel sounds, soft. ABSENT: distended, guarding, mass, organolmegaly, rebound, tenderness Rectal exam: PRESENT: deferred Extremities exam: PRESENT: full ROM. ABSENT: calf tenderness, clubbing, pedal edema Neurological exam: PRESENT: alert, awake, oriented to person, oriented to place , oriented to time, oriented to situation, CN II-XII grossly intact. ABSENT: motor sensory deficit Psychiatric exam: PRESENT: appropriate affect, normal mood. ABSENT: homicidal ideation, suicidal ideation Skin exam: PRESENT: dry, intact, warm. ABSENT: cyanosis, rash Results Laboratory Results: 08/31/17 05:42 08/31/17 05:42 08/31/17 08/31/17 08/31/17 05:42 05:42 05:42 WBC 10.1 RBC 5.10 Hgb 13.2 Hct 40.5 MCV 80 MCH 25.9 L MCHC 32.6 RDW 18.2 H Plt Count 193 Seg Neutrophils % Not Reportable Lymphocytes % Not Reportable Monocytes % Not Reportable Eosinophils % Not Reportable Basophils % Not Reportable Absolute Neutrophils Not Reportable Absolute Lymphocytes Not Reportable Absolute Monocytes Not Reportable Absolute Eosinophils Not Reportable Absolute Basophils Not Reportable Carbonic Acid 1.27 HCO3/H2CO3 Ratio 22:1 ABG pH 7.46 H ABG pCO2 42.1 ABG pO2 56.1 L ABG HCO3 29.1 H ABG O2 Saturation 90.6 L ABG Base Excess 4.7 FiO2 55% Sodium 143.5 Potassium 4.4 Chloride 107 Carbon Dioxide 29 Anion Gap 8 BUN 28 H Creatinine 0.50 L Est GFR ( Amer) > 60 Est GFR (Non-Af Amer) > 60 Glucose 143 H Calcium 8.7 08/24/17 08/25/17 06:30 05:20 Troponin I < 0.012 NT-Pro-B Natriuret Pep 795 Impressions: KUB X-Ray 08/29/17 00:00 IMPRESSION: NG tube with its tip in the left upper quadrant presumably in the stomach. Chest X-Ray 08/29/17 06:00 IMPRESSION: Stable appearance of the chest compared to previous studies Assessment & Plan - Diagnosis (1) Acute respiratory failure with hypoxia Is this a current diagnosis for this admission?: Yes Plan: Acute on chronic respiratory failure due to COPD exacerbation and pneumonia. Patient with minimal improvement on maximum therapy. Patient may require trach if agrees it. (2) COPD exacerbation Is this a current diagnosis for this admission?: Yes Plan: Continue nebs, steroids and antibiotics. Patient currently intubated. (3) Pneumonia Qualifiers: Pneumonia type: due to unspecified organism Laterality: unspecified laterality Lung location: unspecified part of lung Qualified Code(s): J18.9 - Pneumonia, unspecified organism Is this a current diagnosis for this admission?: Yes Plan: Continue antibiotics. (4) UTI (urinary tract infection) Qualifiers: Urinary tract infection type: site unspecified Is this a current diagnosis for this admission?: Yes Plan: Ecoli UTI. Continue ceftriaxone. (5) Diabetes mellitus type 2, controlled Qualifiers: Diabetes mellitus complication status: without complication Diabetes mellitus computer terminal operator insulin use: with computer terminal operator use Qualified Code(s): E11.9 - Type 2 diabetes mellitus without complications; Z79.4 - alf (current) use of insulin; Z79.4 - intermediate school teacher (current) use of insulin; Z79.4 - alf ( current) use of insulin; Z79.4 - intermediate school teacher (current) use of insulin Is this a current diagnosis for this admission?: Yes Plan: Well controlled on current regimen. (6) INÉS (obstructive sleep apnea) Is this a current diagnosis for this admission?: Yes Plan: Patient currently intubated. - Time Time Spent with patient: 15-24 minutes - Inpatient Certification Medical Necessity: Need for IV Antibiotics - Patient currently intubated. Will need to be trached and peg if does not want comfort measures.
[2017-08-31] MEDS: BUDESONIDE NEB 0.5 MG/2 ML AMPUL NEB SCH ×2 (08:37→20:10)
--- NOTE | 2017-08-31 10:23 | PDOC PROGRESS REPORT ---
Subjective Progress Note for:: 08/31/17 Subjective:: intubated Reason For Visit: COPD EXACERBATION,PNEUMONIA,TOBACCO DEP Physical Exam Vital Signs: Temp Pulse Resp BP Pulse Ox 98.2 F 62 20 151/53 H 93 08/31/17 08:00 08/31/17 08:39 08/31/17 08:39 08/31/17 08:00 08/31/17 08:39 Intake & Output 08/30/17 08/31/17 09/01/17 06:59 06:59 06:59 Intake Total 2701 1851 Output Total 2800 2495 25 Balance -99 -644 -25 Weight 82.3 kg 82 kg General appearance: PRESENT: no acute distress, disheveled, well-developed. ABSENT: cooperative, mild distress, morbidly obese, severe distress, thin Head exam: PRESENT: atraumatic, normocephalic Eye exam: PRESENT: conjunctiva pale. ABSENT: conjunctival injection, conjunctiva pink, nystagmus, periorbital swelling, scleral icterus Mouth exam: PRESENT: dry mucosa, neck supple, tongue midline, other - ET tube. ABSENT: laceration, moist Neck exam: ABSENT: carotid bruit, JVD, lymphadenopathy, thyromegaly, tracheal deviation, tracheostomy Respiratory exam: PRESENT: crackles, decreased breath sounds, prolonged expiratory phas, rhonchi, symmetrical, unlabored, wheezes. ABSENT: accessory muscle use, chest wall tenderness, clear to auscultation garrison, rales, retraction , stridor, tachypnea Cardiovascular exam: PRESENT: RRR, +S1, +S2 Pulses: PRESENT: normal radial pulses GI/Abdominal exam: PRESENT: diminished bowel sounds, soft Gentrourinary exam: PRESENT: indwelling catheter Extremities exam: ABSENT: clubbing, joint swelling, tenderness Musculoskeletal exam: ABSENT: ambulatory, deformity, dislocation, full ROM Neurological exam: ABSENT: alert, altered, awake Skin exam: PRESENT: dry, warm Results Laboratory Results: 08/31/17 05:42 08/31/17 05:42 08/31/17 08/31/17 08/31/17 05:42 05:42 05:42 WBC 10.1 RBC 5.10 Hgb 13.2 Hct 40.5 MCV 80 MCH 25.9 L MCHC 32.6 RDW 18.2 H Plt Count 193 Seg Neutrophils % Not Reportable Lymphocytes % Not Reportable Monocytes % Not Reportable Eosinophils % Not Reportable Basophils % Not Reportable Absolute Neutrophils Not Reportable Absolute Lymphocytes Not Reportable Absolute Monocytes Not Reportable Absolute Eosinophils Not Reportable Absolute Basophils Not Reportable Carbonic Acid 1.27 HCO3/H2CO3 Ratio 22:1 ABG pH 7.46 H ABG pCO2 42.1 ABG pO2 56.1 L ABG HCO3 29.1 H ABG O2 Saturation 90.6 L ABG Base Excess 4.7 FiO2 55% Sodium 143.5 Potassium 4.4 Chloride 107 Carbon Dioxide 29 Anion Gap 8 BUN 28 H Creatinine 0.50 L Est GFR ( Amer) > 60 Est GFR (Non-Af Amer) > 60 Glucose 143 H Calcium 8.7 08/24/17 08/25/17 06:30 05:20 Troponin I < 0.012 NT-Pro-B Natriuret Pep 795 Impressions: KUB X-Ray 08/29/17 00:00 IMPRESSION: NG tube with its tip in the left upper quadrant presumably in the stomach. Chest X-Ray 08/29/17 06:00 IMPRESSION: Stable appearance of the chest compared to previous studies Assessment & Plan - Diagnosis (1) Acute respiratory failure with hypoxia Is this a current diagnosis for this admission?: Yes Plan: intubated 08-23-17 D#9 long-term prognosis poor (2) INÉS (obstructive sleep apnea) Is this a current diagnosis for this admission?: Yes Plan: after extubation NIPPV (3) Acute and chronic respiratory failure with hypercapnia Is this a current diagnosis for this admission?: Yes (4) GERD (gastroesophageal reflux disease) Qualifiers: Esophagitis presence: without esophagitis Qualified Code(s): K21.9 - Gastro -esophageal reflux disease without esophagitis Is this a current diagnosis for this admission?: Yes Plan: ppi (5) Opiate dependence, continuous Is this a current diagnosis for this admission?: Yes Plan: home meds (6) CHF (congestive heart failure) Qualifiers: Congestive heart failure type: unspecified congestive heart failure type Congestive heart failure chronicity: chronic Qualified Code(s): I50.9 - Heart failure, unspecified Is this a current diagnosis for this admission?: Yes Plan: continue current tx (7) Pulmonary hypertension Is this a current diagnosis for this admission?: Yes Plan: INÉS chronic hypoxia (8) Tobacco dependency Is this a current diagnosis for this admission?: Yes Plan: transdermal nicotine - Time Total Critical Time (Minutes): 45
[2017-08-31] MEDS: NITROGLYCERIN 10 MG (0.4 MG/HR) PATCH.TD24 TOP SCH (13:46)
[2017-08-31] MEDS: NICOTINE 14 MG/24 HR PATCH.TD24 TD SCH (13:48)
[2017-08-31] MEDS: METHYLPREDNISOLONE INJ 125 MG/2 ML SDV IV SCH ×2 (13:49→22:41)
[2017-08-31] MEDS: ASCORBIC ACID 500 MG TABLET NG SCH ×2 (13:49→18:38)
[2017-08-31] MEDS: METOPROLOL TARTRATE 25 MG TABLET NG SCH ×2 (13:50→22:40)
[2017-08-31] MEDS: GUAIFENESIN SYRP 200 MG/10 ML UDC NG SCH ×2 (13:51→18:37)
[2017-08-31] MEDS: LACTOBACILLUS ACIDOPHILUS 250 MG TAB NG SCH ×2 (13:51→18:37)
[2017-08-31] MEDS: ASPIRIN 81 MG TABLET, CHEWABLE NG SCH (13:52)
[2017-08-31] MEDS: BISACODYL 10 MG SUPP.RECT PR PRN (13:53)
[2017-08-31] MEDS: CEFTRIAXONE SODIUM 1,000 MG in DEXTROSE 5%-WATER 50 ML IV SCH (18:38)
[2017-08-31] MEDS: ATORVASTATIN CALCIUM 40 MG TABLET NG SCH (22:40)
[2017-09-01] MEDS: PROPOFOL 100 ML IV PRN ×7 (00:22→21:05)
[2017-09-01] MEDS: MIDAZOLAM 2 MG/2 ML INJ IV PRN ×2 (00:25→21:05)
[2017-09-01] MEDS: IPRATROPIUM/ALBUTEROL 0.5-2.5 MG/3 ML AMPUL NEB SCH ×4 (01:35→20:02)
[2017-09-01 05:01] LABS: ARTERIAL BLOOD BASE EXCESS 0.3 mmol/L; ARTERIAL BLOOD H2CO3 1.13 mmol/L (1.05-1.35); ARTERIAL BLOOD HCO3 24.4 mmol/L (20-26); ARTERIAL BLOOD O2 SATURATION 90.6 % (94-98); ARTERIAL BLOOD PCO2 37.7 mmHg (35-45); ARTERIAL BLOOD PH 7.43 (7.35-7.45); ARTERIAL BLOOD PO2 57.2 mmHg (80-100); ARTERIAL BLOOD TOTAL CO2 25.6 mmol/L (21-25)
[2017-09-01 05:21] LABS: HEMOGLOBIN 13.3 g/dL (12.0-15.5); MEAN CORPUSCULAR HEMOGLOBIN 25.5 pg (27.0-33.4); MEAN CORPUSCULAR HGB CONC 31.7 g/dL (32.0-36.0); MEAN CORPUSCULAR VOLUME 80 fl (80-97); PLATELET COUNT 186 10^3/uL (150-450); RED BLOOD COUNT 5.23 10^6/uL (3.72-5.28); RED CELL DISTRIBUTION WIDTH 17.8 % (11.5-14.0)
[2017-09-01 05:30] LABS: ANION GAP 9 (5-19); BLOOD UREA NITROGEN 28 mg/dL (7-20); CALCIUM 8.8 mg/dL (8.4-10.2); CARBON DIOXIDE 26 mmol/L (22-30); CHLORIDE 107 mmol/L (98-107); GLUCOSE 152 mg/dL (75-110); MAGNESIUM 2.4 mg/dL (1.6-2.3); PHOSPHORUS 3.9 mg/dL (2.5-4.5); POTASSIUM 4.4 mmol/L (3.6-5.0)
[2017-09-01 05:51] LABS: ABSOLUTE LYMPHOCYTES# (MANUAL) 1.3 10^3/uL (0.5-4.7); ABSOLUTE MONOCYTES # (MANUAL) 0.2 10^3/uL (0.1-1.4); ABSOLUTE NEUTROPHILS# (MANUAL) 10.4 10^3/uL (1.7-8.2); BASOPHILS % (MANUAL) 0 % (0-2); EOSINOPHILS % (MANUAL) 0 % (0-6); LYMPHOCYTES % (MANUAL) 11 % (13-45); MONOCYTES % (MANUAL) 2 % (3-13); SEGMENTED NEUTROPHILS % (MAN) 87 % (42-78); TOTAL CELLS COUNTED 100
[2017-09-01 05:53] LABS: ANISOCYTOSIS 1+; HYPOCHROMASIA SLIGHT; OVALOCYTES SLIGHT; PLATELET CLUMPS PRESENT; PLATELET COMMENT ADEQUATE
[2017-09-01] MEDS: PREGABALIN 50 MG CAPSULE NG SCH ×3 (06:04→22:34)
[2017-09-01] MEDS: LANSOPRAZOLE 30 MG TAB.RAP.DR PO SCH (06:04)
[2017-09-01] MEDS: HEPARIN SOD (PORCINE) 5,000 UNIT/ML 1 ML SYRINGE SUBCUT SCH (06:05)
--- NOTE | 2017-09-01 07:46 | RADIOLOGY REPORT (SQ) ---
EXAM DESCRIPTION: CHEST SINGLE VIEW CLINICAL HISTORY: 72 years, Female, acute/chronic resp failure COMPARISON: 08.29.17 FINDINGS: Moderate consolidative opacity of the left lower lobe, moderate bandlike patchiness of the right lower lung, moderate haziness-layered effusion of bilateral lung bases, mild interstitial markings, prominent cardiac silhouette, atherosclerosis, adequate appearing endotracheal tube, likely adequate enteric tube obscured distally, right jugular central line tip at the cavoatrial junction. No pneumothorax. Mild disc desiccation. IMPRESSION: Interval worsening includes moderate bibasilar opacities. 2011 [employer]- All Rights Reserved
[2017-09-01] MEDS: BUDESONIDE NEB 0.5 MG/2 ML AMPUL NEB SCH ×2 (08:06→20:02)
[2017-09-01] MEDS: GUAIFENESIN SYRP 200 MG/10 ML UDC NG SCH ×2 (09:23→17:37)
[2017-09-01] MEDS: LACTOBACILLUS ACIDOPHILUS 250 MG TAB NG SCH ×2 (09:23→17:37)
[2017-09-01] MEDS: METOPROLOL TARTRATE 25 MG TABLET NG SCH ×2 (09:23→22:34)
[2017-09-01] MEDS: ASCORBIC ACID 500 MG TABLET NG SCH ×2 (09:23→17:37)
[2017-09-01] MEDS: ASPIRIN 81 MG TABLET, CHEWABLE NG SCH (09:23)
[2017-09-01] MEDS: NITROGLYCERIN 10 MG (0.4 MG/HR) PATCH.TD24 TOP SCH (09:24)
[2017-09-01] MEDS: AZITHROMYCIN 500 MG in DEXTROSE 5%-WATER 250 ML IV SCH (09:46)
[2017-09-01] MEDS: METHYLPREDNISOLONE INJ 125 MG/2 ML SDV IV SCH ×2 (10:04→22:35)
[2017-09-01] MEDS: NICOTINE 14 MG/24 HR PATCH.TD24 TD SCH (10:08)
[2017-09-01] MEDS: CEFTRIAXONE SODIUM 1,000 MG in DEXTROSE 5%-WATER 50 ML IV SCH (17:47)
[2017-09-01] MEDS: ATORVASTATIN CALCIUM 40 MG TABLET NG SCH (22:34)
[2017-09-02] MEDS: PROPOFOL 100 ML IV PRN ×5 (00:33→17:01)
[2017-09-02] MEDS: IPRATROPIUM/ALBUTEROL 0.5-2.5 MG/3 ML AMPUL NEB SCH ×4 (02:19→20:38)
[2017-09-02 05:22] LABS: ARTERIAL BLOOD BASE EXCESS 2.3 mmol/L; ARTERIAL BLOOD H2CO3 1.15 mmol/L (1.05-1.35); ARTERIAL BLOOD HCO3 26.2 mmol/L (20-26); ARTERIAL BLOOD O2 SATURATION 88.6 % (94-98); ARTERIAL BLOOD PCO2 38.1 mmHg (35-45); ARTERIAL BLOOD PH 7.46 (7.35-7.45); ARTERIAL BLOOD PO2 51.9 mmHg (80-100); ARTERIAL BLOOD TOTAL CO2 27.4 mmol/L (21-25)
[2017-09-02 05:28] LABS: HEMATOCRIT 39.4 % (36.0-47.0); HEMOGLOBIN 12.6 g/dL (12.0-15.5); MEAN CORPUSCULAR HEMOGLOBIN 25.9 pg (27.0-33.4); MEAN CORPUSCULAR HGB CONC 31.9 g/dL (32.0-36.0); MEAN CORPUSCULAR VOLUME 81 fl (80-97); PLATELET COUNT 182 10^3/uL (150-450); RED BLOOD COUNT 4.86 10^6/uL (3.72-5.28); RED CELL DISTRIBUTION WIDTH 18.1 % (11.5-14.0); WHITE BLOOD COUNT 11.7 10^3/uL (4.0-10.5)
[2017-09-02] MEDS: LANSOPRAZOLE 30 MG TAB.RAP.DR PO SCH (05:54)
[2017-09-02] MEDS: PREGABALIN 50 MG CAPSULE NG SCH ×3 (05:54→22:36)
[2017-09-02 05:55] LABS: ANION GAP 9 (5-19); BLOOD UREA NITROGEN 26 mg/dL (7-20); CALCIUM 8.5 mg/dL (8.4-10.2); CARBON DIOXIDE 26 mmol/L (22-30); CHLORIDE 108 mmol/L (98-107); GLUCOSE 167 mg/dL (75-110); MAGNESIUM 2.2 mg/dL (1.6-2.3); POTASSIUM 4.4 mmol/L (3.6-5.0); SODIUM 142.7 mmol/L (137-145); TRIGLYCERIDES 229 mg/dL (<150)
[2017-09-02 05:58] LABS: ABSOLUTE LYMPHOCYTES# (MANUAL) 0.9 10^3/uL (0.5-4.7); ABSOLUTE MONOCYTES # (MANUAL) 0.2 10^3/uL (0.1-1.4); ABSOLUTE NEUTROPHILS# (MANUAL) 10.5 10^3/uL (1.7-8.2); BAND NEUTROPHILS % (MANUAL) 1 % (3-5); BASOPHILS % (MANUAL) 0 % (0-2); EOSINOPHILS % (MANUAL) 0 % (0-6); LYMPHOCYTES % (MANUAL) 8 % (13-45); MONOCYTES % (MANUAL) 2 % (3-13); SEGMENTED NEUTROPHILS % (MAN) 89 % (42-78); TOTAL CELLS COUNTED 100
[2017-09-02 06:00] LABS: ANISOCYTOSIS SLIGHT; OVALOCYTES SLIGHT; STOMATOCYTES SLIGHT
[2017-09-02 06:01] LABS: PLATELET COMMENT ADEQUATE
[2017-09-02] MEDS: BUDESONIDE NEB 0.5 MG/2 ML AMPUL NEB SCH ×2 (08:17→20:38)
--- NOTE | 2017-09-02 09:26 | RADIOLOGY REPORT (SQ) ---
EXAM DESCRIPTION: CHEST SINGLE VIEW COMPLETED DATE/TIME: 09/02/2017 7:10 am REASON FOR STUDY: resp failure COMPARISON: Chest films 08/25/2017, 09/14/2017, 08/29/2017, 09/01/2017 EXAM PARAMETERS: NUMBER OF VIEWS: One view. TECHNIQUE: Single frontal radiographic view of the chest acquired. RADIATION DOSE: NA LIMITATIONS: None. FINDINGS: LUNGS AND PLEURA: There are trace bilateral pleural effusions, similar compared to 8, new compared to 08/25/2017. Bibasilar airspace disease likely atelectasis. Pneumonia could not be excluded. This is similar com pared to 09/01/2017, new compared to 08/25/2017. No pneumothorax. MEDIASTINUM AND HILAR STRUCTURES: No masses. Contour normal. 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 HARDWARE: Endotracheal tube tip 4 cm above the vianney. Right permanent central line tip superior deondre a cava. Nasogastric tube tip and side port in the stomach OTHER: No other significant finding. IMPRESSION: Tubes and lines in good positioning Persistent bibasilar airspace disease and trace bilateral pleural effusions, similar compared to 2017. TECHNICAL DOCUMENTATION: JOB ID: [id number] [employer]- All Rights Reserved
[2017-09-02] MEDS: LACTOBACILLUS ACIDOPHILUS 250 MG TAB NG SCH ×2 (10:19→17:01)
[2017-09-02] MEDS: METOPROLOL TARTRATE 25 MG TABLET NG SCH ×2 (10:20→22:37)
[2017-09-02] MEDS: NITROGLYCERIN 10 MG (0.4 MG/HR) PATCH.TD24 TOP SCH (10:45)
[2017-09-02] MEDS: GUAIFENESIN SYRP 200 MG/10 ML UDC NG SCH ×2 (10:45→17:01)
[2017-09-02] MEDS: AZITHROMYCIN 500 MG in DEXTROSE 5%-WATER 250 ML IV SCH (10:45)
[2017-09-02] MEDS: ASCORBIC ACID 500 MG TABLET NG SCH ×2 (10:45→17:01)
[2017-09-02] MEDS: ASPIRIN 81 MG TABLET, CHEWABLE NG SCH (10:45)
[2017-09-02] MEDS: METHYLPREDNISOLONE INJ 125 MG/2 ML SDV IV SCH ×2 (10:45→22:36)
[2017-09-02] MEDS: NICOTINE 14 MG/24 HR PATCH.TD24 TD SCH (10:45)
[2017-09-02] MEDS: OXYCODONE-ACETAMINOPHEN 5-325 MG TABLET NG PRN (14:04)
[2017-09-02] MEDS: OXYCODONE HCL IR 5 MG TABLET NG PRN (14:04)
[2017-09-02] MEDS: MIDAZOLAM 2 MG/2 ML INJ IV PRN (14:05)
[2017-09-02] MEDS: CEFTRIAXONE SODIUM 1,000 MG in DEXTROSE 5%-WATER 50 ML IV SCH (16:59)
--- NOTE | 2017-09-02 17:39 | PDOC PROGRESS REPORT ---
Subjective Progress Note for:: 09/01/17 Subjective:: intubated Reason For Visit: COPD EXACERBATION,PNEUMONIA,TOBACCO DEP Physical Exam Vital Signs: Temp Pulse Resp BP Pulse Ox 98.8 F 81 20 143/53 H 97 09/01/17 07:41 09/01/17 08:04 09/01/17 08:04 09/01/17 07:41 09/01/17 08:04 Intake & Output 08/31/17 09/01/17 09/02/17 06:59 06:59 06:59 Intake Total 1851 2376 Output Total 2495 2200 65 Balance -644 176 -65 Weight 82 kg 82.3 kg General appearance: PRESENT: no acute distress, disheveled, obese. ABSENT: cooperative, mild distress, morbidly obese, severe distress Head exam: PRESENT: atraumatic, normocephalic Eye exam: PRESENT: conjunctiva pale. ABSENT: conjunctival injection, conjunctiva pink, nystagmus, periorbital swelling, scleral icterus Mouth exam: PRESENT: dry mucosa, neck supple, tongue midline, other - ET tube. ABSENT: laceration, moist Teeth exam: PRESENT: poor dentation Neck exam: ABSENT: carotid bruit, JVD, lymphadenopathy, thyromegaly, tracheal deviation, tracheostomy Respiratory exam: PRESENT: crackles, decreased breath sounds, prolonged expiratory phas, rhonchi, symmetrical, unlabored, wheezes. ABSENT: accessory muscle use, chest wall tenderness, clear to auscultation garrison, rales, retraction , stridor, tachypnea Cardiovascular exam: PRESENT: RRR, +S1, +S2 Pulses: PRESENT: normal radial pulses GI/Abdominal exam: PRESENT: diminished bowel sounds Gentrourinary exam: PRESENT: indwelling catheter Extremities exam: ABSENT: clubbing, joint swelling Musculoskeletal exam: ABSENT: deformity, dislocation Neurological exam: ABSENT: alert, awake Skin exam: PRESENT: dry, warm Results Laboratory Results: 09/01/17 05:05 09/01/17 05:05 09/01/17 09/01/17 09/01/17 04:49 05:05 05:05 WBC 12.0 H RBC 5.23 Hgb 13.3 Hct 42.0 MCV 80 MCH 25.5 L MCHC 31.7 L RDW 17.8 H Plt Count 186 Seg Neutrophils % Not Reportable Lymphocytes % Not Reportable Monocytes % Not Reportable Eosinophils % Not Reportable Basophils % Not Reportable Absolute Neutrophils Not Reportable Absolute Lymphocytes Not Reportable Absolute Monocytes Not Reportable Absolute Eosinophils Not Reportable Absolute Basophils Not Reportable Carbonic Acid 1.13 HCO3/H2CO3 Ratio 21:1 ABG pH 7.43 ABG pCO2 37.7 ABG pO2 57.2 L ABG HCO3 24.4 ABG O2 Saturation 90.6 L ABG Base Excess 0.3 FiO2 55% Sodium 142.0 Potassium 4.4 Chloride 107 Carbon Dioxide 26 Anion Gap 9 BUN 28 H Creatinine 0.46 L Est GFR ( Amer) > 60 Est GFR (Non-Af Amer) > 60 Glucose 152 H Calcium 8.8 Phosphorus 3.9 Magnesium 2.4 H 08/24/17 08/25/17 06:30 05:20 Troponin I < 0.012 NT-Pro-B Natriuret Pep 795 Impressions: KUB X-Ray 08/29/17 00:00 IMPRESSION: NG tube with its tip in the left upper quadrant presumably in the stomach. Chest X-Ray 09/01/17 06:00 IMPRESSION: Interval worsening includes moderate bibasilar opacities. 2010 [employer]- All Rights Reserved Assessment & Plan - Diagnosis (1) Acute respiratory failure with hypoxia Is this a current diagnosis for this admission?: Yes Plan: intubated 08-23-17 D#9 long-term prognosis poor (2) INÉS (obstructive sleep apnea) Is this a current diagnosis for this admission?: Yes Plan: after extubation NIPPV (3) Acute and chronic respiratory failure with hypercapnia Is this a current diagnosis for this admission?: Yes Plan: Requires high FiO2 hypercapnia resolved with average minute ventilation (4) GERD (gastroesophageal reflux disease) Qualifiers: Esophagitis presence: without esophagitis Qualified Code(s): K21.9 - Gastro -esophageal reflux disease without esophagitis Is this a current diagnosis for this admission?: Yes Plan: ppi (5) Opiate dependence, continuous Is this a current diagnosis for this admission?: Yes Plan: home meds (6) CHF (congestive heart failure) Qualifiers: Congestive heart failure type: unspecified congestive heart failure type Congestive heart failure chronicity: chronic Is this a current diagnosis for this admission?: Yes Plan: continue current tx (7) Pulmonary hypertension Is this a current diagnosis for this admission?: Yes Plan: INÉS chronic hypoxia (8) Tobacco dependency Is this a current diagnosis for this admission?: Yes Plan: transdermal nicotine - Time Total Critical Time (Minutes): 40
--- NOTE | 2017-09-02 17:42 | PDOC PROGRESS REPORT ---
Subjective Progress Note for:: 09/02/17 Subjective:: intubated Reason For Visit: COPD EXACERBATION,PNEUMONIA,TOBACCO DEP Physical Exam Vital Signs: Temp Pulse Resp BP Pulse Ox 98.8 F 70 20 148/52 H 94 09/02/17 06:35 09/02/17 08:17 09/02/17 08:17 09/02/17 06:35 09/02/17 09:18 Intake & Output 09/01/17 09/02/17 09/03/17 06:59 06:59 06:59 Intake Total 2376 2053 Output Total 2200 1445 Balance 176 608 Weight 82.3 kg 83 kg General appearance: PRESENT: no acute distress, disheveled, obese, well- developed. ABSENT: cooperative, mild distress, morbidly obese, severe distress , thin Head exam: PRESENT: atraumatic, normocephalic Eye exam: PRESENT: conjunctiva pale. ABSENT: conjunctival injection, conjunctiva pink, nystagmus, periorbital swelling, scleral icterus Mouth exam: PRESENT: dry mucosa, neck supple, tongue midline, other - ET tube. ABSENT: laceration, moist Teeth exam: PRESENT: poor dentation Neck exam: ABSENT: carotid bruit, JVD, lymphadenopathy, thyromegaly, tracheal deviation, tracheostomy Respiratory exam: PRESENT: decreased breath sounds, prolonged expiratory phas, rales, rhonchi, symmetrical, unlabored, wheezes. ABSENT: accessory muscle use, chest wall tenderness, clear to auscultation garrison, crackles, retraction, stridor , tachypnea Cardiovascular exam: PRESENT: RRR, +S1, +S2 Pulses: PRESENT: normal radial pulses GI/Abdominal exam: PRESENT: diminished bowel sounds, soft Gentrourinary exam: PRESENT: indwelling catheter Extremities exam: ABSENT: clubbing, joint swelling Musculoskeletal exam: ABSENT: deformity, dislocation Neurological exam: ABSENT: alert, awake Skin exam: PRESENT: dry, warm Results Laboratory Results: 09/02/17 05:08 09/02/17 05:08 09/02/17 09/02/17 09/02/17 05:08 05:08 05:08 WBC 11.7 H RBC 4.86 Hgb 12.6 Hct 39.4 MCV 81 MCH 25.9 L MCHC 31.9 L RDW 18.1 H Plt Count 182 Seg Neutrophils % Not Reportable Lymphocytes % Not Reportable Monocytes % Not Reportable Eosinophils % Not Reportable Basophils % Not Reportable Absolute Neutrophils Not Reportable Absolute Lymphocytes Not Reportable Absolute Monocytes Not Reportable Absolute Eosinophils Not Reportable Absolute Basophils Not Reportable Carbonic Acid 1.15 HCO3/H2CO3 Ratio 22:1 ABG pH 7.46 H ABG pCO2 38.1 ABG pO2 51.9 L ABG HCO3 26.2 H ABG O2 Saturation 88.6 L ABG Base Excess 2.3 FiO2 55% Sodium 142.7 Potassium 4.4 Chloride 108 H Carbon Dioxide 26 Anion Gap 9 BUN 26 H Creatinine 0.49 L Est GFR ( Amer) > 60 Est GFR (Non-Af Amer) > 60 Glucose 167 H Calcium 8.5 Magnesium 2.2 Triglycerides 229 H 08/24/17 08/25/17 06:30 05:20 Troponin I < 0.012 NT-Pro-B Natriuret Pep 795 Impressions: KUB X-Ray 08/29/17 00:00 IMPRESSION: NG tube with its tip in the left upper quadrant presumably in the stomach. Chest X-Ray 09/02/17 06:00 IMPRESSION: Tubes and lines in good positioning Persistent bibasilar airspace disease and trace bilateral pleural effusions, similar compared to 09/01/2017. Assessment & Plan - Diagnosis (1) Acute respiratory failure with hypoxia Is this a current diagnosis for this admission?: Yes Plan: slightly improved (2) INÉS (obstructive sleep apnea) Is this a current diagnosis for this admission?: Yes Plan: after extubation NIPPV (3) Acute and chronic respiratory failure with hypercapnia Is this a current diagnosis for this admission?: Yes (4) GERD (gastroesophageal reflux disease) Qualifiers: Esophagitis presence: without esophagitis Qualified Code(s): K21.9 - Gastro -esophageal reflux disease without esophagitis Is this a current diagnosis for this admission?: Yes Plan: ppi (5) Opiate dependence, continuous Is this a current diagnosis for this admission?: Yes Plan: home meds (6) CHF (congestive heart failure) Qualifiers: Congestive heart failure type: unspecified congestive heart failure type Congestive heart failure chronicity: chronic Is this a current diagnosis for this admission?: Yes Plan: continue current tx (7) Pulmonary hypertension Is this a current diagnosis for this admission?: Yes Plan: INÉS chronic hypoxia (8) Tobacco dependency Is this a current diagnosis for this admission?: Yes Plan: transdermal nicotine - Time Total Critical Time (Minutes): 40
[2017-09-02] MEDS: ATORVASTATIN CALCIUM 40 MG TABLET NG SCH (22:36)
--- NOTE | 2017-09-02 23:52 | Palliative Consultation Report ---
Consultation From:: TATIANNA MALAGON Consult Reason: acute/chronic resp failure - HPI HPI: Palliative Care Consult Visit 09/02/17 12:15 PM, 5:45 PM ( and multiple other days) Appreciate palliative care consult for this 72 year old woman who is known to me from previous visits. She has been admitted and on ventilator since 08/23/17. I have made several trips into the ICU to check on her and to try to speak with her . He has not returned my calls or messages left. Today, Mrs. Perez is reported to be doing better and actually tolerating weaning exercises. She is sedated at the time of my visits. I had lengthy conversation with this patient in October about advance directives. She said at the time that she had been intubated several times and was always able to be extubated. She refused to be DNR at the time. We talked at length about her going to pulmonary rehab and the improvement she could see. However, she said she would not stop smoking, but she would consider cutting back. I will continue to try to speak with Mr. Perez to offer support and will talk with patient again when she is awake. Onset: Just prior to arrival Onset/Duration: Gradual Quality of Pain: No pain Past Medical History(Consults) - General Information Source: [facility] Records Home Medications: Albuterol Sulfate [Ventolin HFA MDI 18 GM] 1 puff IH Q4HP PRN 08/23/17 Ascorbic Acid [Vitamin C 500 mg Tablet] 500 mg PO BID 08/23/17 Aspirin [Ecotrin 81 mg EC Tablet] 81 mg PO DAILY 08/23/17 Atorvastatin Calcium [Lipitor 40 mg Tablet] 40 mg PO QHS 08/23/17 Budesonide [Pulmicort Neb 0.5 mg/2 ml Ampul] 2 ml NEB Q12 08/23/17 Cholecalciferol (Vitamin D3) [Vitamin D3] 5,000 unit PO DAILY 08/23/17 Cyanocobalamin (Vitamin B-12) [Vitamin B-12 500 mcg Tablet] 500 mcg PO BID 08/23 Esomeprazole Magnesium [Nexium] 40 mg PO DAILY 08/23/17 Fluticasone/Salmeterol [Advair 500-50 Diskus 14 Dose/Diskus] 1 puff IH Q12 08/23 Insulin Glargine,Hum.rec.anlog [Lantus Solostar] 15 units SQ QHS 08/23/17 Ipratropium/Albuterol Sulfate [Iprat-Albut 0.5-3(2.5) mg/3 ml] 3 ml NEB Q6 08/23 Iron Ps Complex/B12/Folic Acid [Poly-Iron 150 Forte Capsule] 1 cap PO BID Melatonin [Melatin] 3 mg PO QHS 08/23/17 Metoprolol Succinate [Toprol Xl 25 mg Tab.sr] 25 mg PO Q12 08/23/17 Nitroglycerin [Nitro-Dur 10 mg (0.4MG/Hr) Transdermal Patch] 1 patch TOP DAILY 08/23/17 Oxycodone HCl/Acetaminophen [Endocet 10-325 mg Tablet] 1 tab PO Q6HP PRN Potassium Chloride [Klor-Con 10 Meq Tablet.sa] 10 meq PO DAILY 08/23/17 Pregabalin [Lyrica] 50 mg PO Q8 08/23/17 Ranolazine [Ranexa 500 mg Tab.sr] 500 mg PO Q12 08/23/17 Roflumilast [Daliresp 500 mcg Tablet] 500 mcg PO QAM 08/23/17 Ropinirole HCl [Requip 2 mg Tablet] 2 mg PO QHS 08/23/17 Tiotropium [place] [Spiriva Handihaler 5 Cap/Kit (18 Mcg/Cap)] 1 puff IH DAILY 08/23/17 Torsemide [Demadex 20 mg Tablet] 20 mg PO QAM 08/23/17 Allergies/Adverse Reactions: vancomycin Allergy (Verified 07/02/17 10:56) Generalized Itching levofloxacin Adverse Reaction (Verified 07/02/17 10:56) Diarrhea linezolid [From Zyvox] Adverse Reaction (Verified 07/02/17 10:56) Diarrhea - Social History Lives with: Spouse/Significant other Family History: CAD, DM, Hypertension Parental Family History Reviewed: No Children Family History Reviewed: No Sibling(s) Family History Reviewed.: No Smoking Status: Current Every Day Smoker Frequency of Alcohol Use: None Hx Recreational Drug Use: No Drugs: None Hx Prescription Drug Abuse: No - Past Medical History Cardiac Medical History: Reports: Hx Coronary Artery Disease - CABG, Hx Hypercholesterolemia - zocor , Hx Hypertension Pulmonary Medical History: Reports: Hx Asthma, Hx Bronchitis, Hx COPD, Hx Pneumonia - MRSA 2014 , Hx Sleep Apnea - bipap , Hx Tuberculosis - +PPD in 1960' s - on meds x 1 year EENT Medical History: Denies: Ears, Nose Endocrine Medical History: Reports: Hx Diabetes Mellitus Type 1, Hx Diabetes Mellitus Type 2 Renal/ Medical History: Reports: Hx End Stage Renal Disease. Denies: Hx Peritoneal Dialysis Malignancy Medical History: Reports: None GI Medical History: Reports: Hx Gastroesophageal Reflux Disease. Denies: Hx Crohn's Disease, Hx Ulcerative Colitis Musculoskeltal Medical History: Reports Hx Arthritis Skin Medical History: Reports Hx Psoriasis Psychiatric Medical History: Reports: Hx Anxiety, Hx Depression Traumatic Medical History: Reports: Hx Fractures - lumbar . Denies: Hx Traumatic Brain Injury Infectious Medical History: Reports: Hx MRSA - Reported MRSA pneumonia, 2014 Hematology: Denies: Anemia, Hemophilia, Sickle Cell Disease - Surgical History Past Surgical History: Reports: Hx Appendectomy, Hx Bowel Surgery, Hx Cardiac Surgery - CABGx2, Hx Cholecystectomy, Hx Coronary Artery Bypass Graft - 2008 x 2 grafts , Hx Hysterectomy, Hx Open Heart Surgery - 3v, Hx Orthopedic Surgery - Left footsurgery, cyst removal from left hand, Hx Tonsillectomy Review of systems ROS unobtainable: due to endotracheal tube Ojective:Exam Vital Signs: Temp Pulse Resp BP Pulse Ox 98.8 F 64 20 122/46 L 97 09/02/17 22:36 09/02/17 20:40 09/02/17 22:36 09/02/17 22:36 09/02/17 22:36 Intake & Output 09/01/17 09/02/17 09/03/17 06:59 06:59 06:59 Intake Total 2376 2053 1354 Output Total 2200 1445 1210 Balance 176 608 144 Weight 82.3 kg 83 kg - General General Appearance: Unresponsive In distress: None Note:: In bed in ICU, intubated and sedated. Color pale, no cyanosis. some edema face and extremities. No frown or other sign pain. VSS. - Respiratory Respiratory Status: Intubated Objective-Diagnostic Laboratory: 09/02/17 05:08 09/02/17 05:08 09/02/17 09/02/17 09/02/17 05:08 05:08 05:08 WBC 11.7 H RBC 4.86 Hgb 12.6 Hct 39.4 MCV 81 MCH 25.9 L MCHC 31.9 L RDW 18.1 H Plt Count 182 Seg Neutrophils % Not Reportable Lymphocytes % Not Reportable Monocytes % Not Reportable Eosinophils % Not Reportable Basophils % Not Reportable Absolute Neutrophils Not Reportable Absolute Lymphocytes Not Reportable Absolute Monocytes Not Reportable Absolute Eosinophils Not Reportable Absolute Basophils Not Reportable Carbonic Acid 1.15 HCO3/H2CO3 Ratio 22:1 ABG pH 7.46 H ABG pCO2 38.1 ABG pO2 51.9 L ABG HCO3 26.2 H ABG O2 Saturation 88.6 L ABG Base Excess 2.3 FiO2 55% Sodium 142.7 Potassium 4.4 Chloride 108 H Carbon Dioxide 26 Anion Gap 9 BUN 26 H Creatinine 0.49 L Est GFR ( Amer) > 60 Est GFR (Non-Af Amer) > 60 Glucose 167 H Calcium 8.5 Magnesium 2.2 Triglycerides 229 H 08/24/17 08/25/17 06:30 05:20 Troponin I < 0.012 NT-Pro-B Natriuret Pep 795 Plan and Recommendation Plan and Recommendation: Discussed improvement with nurse. Plans to continue weaning from ventilator as tolerated. I will continue to reach patient's and discuss DNR with him, but I am not sure he emilie agree to DNR due to her prior decisions. Will follow. - Time Spent with Patient Time spent with patient: 15 to 30 Minutes - 30 minute chart review, consultation and repeated attempts to talk with spouse..
[2017-09-03] MEDS: IPRATROPIUM/ALBUTEROL 0.5-2.5 MG/3 ML AMPUL NEB SCH ×4 (03:06→20:39)
[2017-09-03] MEDS: PROPOFOL 100 ML IV PRN ×6 (03:11→22:19)
[2017-09-03 05:43] LABS: ARTERIAL BLOOD BASE EXCESS 1.2 mmol/L; ARTERIAL BLOOD H2CO3 1.19 mmol/L (1.05-1.35); ARTERIAL BLOOD HCO3 25.5 mmol/L (20-26); ARTERIAL BLOOD O2 SATURATION 90.7 % (94-98); ARTERIAL BLOOD PCO2 39.4 mmHg (35-45); ARTERIAL BLOOD PH 7.43 (7.35-7.45); ARTERIAL BLOOD PO2 57.6 mmHg (80-100); ARTERIAL BLOOD TOTAL CO2 26.7 mmol/L (21-25)
[2017-09-03] MEDS: PREGABALIN 50 MG CAPSULE NG SCH ×3 (05:45→21:50)
[2017-09-03 05:46] LABS: HEMATOCRIT 40.9 % (36.0-47.0); HEMOGLOBIN 13.4 g/dL (12.0-15.5); MEAN CORPUSCULAR HEMOGLOBIN 26.3 pg (27.0-33.4); MEAN CORPUSCULAR HGB CONC 32.8 g/dL (32.0-36.0); MEAN CORPUSCULAR VOLUME 80 fl (80-97); PLATELET COUNT 168 10^3/uL (150-450); RED CELL DISTRIBUTION WIDTH 18.2 % (11.5-14.0); WHITE BLOOD COUNT 11.8 10^3/uL (4.0-10.5)
[2017-09-03] MEDS: LANSOPRAZOLE 30 MG TAB.RAP.DR PO SCH (05:46)
[2017-09-03 05:50] LABS: ARTERIAL BLOOD FIO2 60%
[2017-09-03 05:54] LABS: ANION GAP 6 (5-19); BLOOD UREA NITROGEN 27 mg/dL (7-20); CALCIUM 8.7 mg/dL (8.4-10.2); CARBON DIOXIDE 27 mmol/L (22-30); CHLORIDE 108 mmol/L (98-107); GLUCOSE 155 mg/dL (75-110); MAGNESIUM 2.2 mg/dL (1.6-2.3); POTASSIUM 4.4 mmol/L (3.6-5.0)
[2017-09-03 06:40] LABS: ABSOLUTE LYMPHOCYTES# (MANUAL) 0.7 10^3/uL (0.5-4.7); ABSOLUTE MONOCYTES # (MANUAL) 0.4 10^3/uL (0.1-1.4); ABSOLUTE NEUTROPHILS# (MANUAL) 10.7 10^3/uL (1.7-8.2); BAND NEUTROPHILS % (MANUAL) 2 % (3-5); BASOPHILS % (MANUAL) 0 % (0-2); EOSINOPHILS % (MANUAL) 0 % (0-6); LYMPHOCYTES % (MANUAL) 6 % (13-45); MONOCYTES % (MANUAL) 3 % (3-13); SEGMENTED NEUTROPHILS % (MAN) 89 % (42-78); TOTAL CELLS COUNTED 100
[2017-09-03 06:41] LABS: ANISOCYTOSIS SLIGHT; HYPOCHROMASIA SLIGHT; PLATELET COMMENT ADEQUATE; PLATELET LARGE PRESENT; TOXIC GRANULATION SLIGHT; TOXIC VACUOLATION PRESENT
[2017-09-03] MEDS: BUDESONIDE NEB 0.5 MG/2 ML AMPUL NEB SCH ×2 (07:55→20:39)
[2017-09-03] MEDS: AZITHROMYCIN 500 MG in DEXTROSE 5%-WATER 250 ML IV SCH (11:50)
[2017-09-03] MEDS: GUAIFENESIN SYRP 200 MG/10 ML UDC NG SCH ×2 (11:54→17:29)
[2017-09-03] MEDS: OXYCODONE-ACETAMINOPHEN 5-325 MG TABLET NG PRN (11:54)
[2017-09-03] MEDS: ASCORBIC ACID 500 MG TABLET NG SCH ×2 (11:54→17:30)
[2017-09-03] MEDS: BISACODYL 10 MG SUPP.RECT PR PRN (11:55)
[2017-09-03] MEDS: OXYCODONE HCL IR 5 MG TABLET NG PRN (11:55)
[2017-09-03] MEDS: ASPIRIN 81 MG TABLET, CHEWABLE NG SCH (11:55)
[2017-09-03] MEDS: METOPROLOL TARTRATE 25 MG TABLET NG SCH ×2 (11:56→21:51)
[2017-09-03] MEDS: MIDAZOLAM 2 MG/2 ML INJ IV PRN ×2 (11:56→21:50)
[2017-09-03] MEDS: LACTOBACILLUS ACIDOPHILUS 250 MG TAB NG SCH ×2 (11:56→17:30)
[2017-09-03] MEDS: NITROGLYCERIN 10 MG (0.4 MG/HR) PATCH.TD24 TOP SCH (11:57)
[2017-09-03] MEDS: METHYLPREDNISOLONE INJ 125 MG/2 ML SDV IV SCH ×2 (11:57→21:50)
[2017-09-03] MEDS: NICOTINE 14 MG/24 HR PATCH.TD24 TD SCH (11:57)
[2017-09-03] MEDS: CEFTRIAXONE SODIUM 1,000 MG in DEXTROSE 5%-WATER 50 ML IV SCH (17:30)
[2017-09-03] MEDS: ATORVASTATIN CALCIUM 40 MG TABLET NG SCH (21:50)
--- NOTE | 2017-09-03 23:23 | Progress Note ---
Provider Note Provider Note: Palliative Care Follow Up visit 09/03/17 10:00 AM Palliative care follow up visit with patient in ICU. She was awake at time of my visit. She is still intubated and on vent, but undergoing weaning exercises. Mr. Perez is not at hospital during my visit and has not answered my calls to his home. Patient nods yes that she remembers meeting me back in October before she went to [place] to Pulmonary rehab. She answers yes that it did help her to go there. She denies pain or distress but was trying very hard to tell me something. All I could get from her was the word I,and sometimes she nodded yes when I repeated "I" and sometimes nodded yes when I asked if she was saying "ice". I told her she was doing well and would probably be off ventilator soon. She nodded no to that and when I asked if she wanted to be extubated, she nodded no. She did the same when nurse asked her. She did become upset while trying to talk to me and started coughing against her ET tube. Nurse had to give her more sedation. Patient was adamant about being full code when I talked with he in October. I doubt she remembered that conversation, but she was trying very hard to tell me something. Will follow with her and discuss after she is extubated. VSS stable at present. Will follow.
[2017-09-04] MEDS: PROPOFOL 100 ML IV PRN ×5 (01:48→17:53)
[2017-09-04] MEDS: IPRATROPIUM/ALBUTEROL 0.5-2.5 MG/3 ML AMPUL NEB SCH ×4 (02:41→20:54)
[2017-09-04] MEDS: PREGABALIN 50 MG CAPSULE NG SCH ×3 (05:21→21:58)
[2017-09-04] MEDS: LANSOPRAZOLE 30 MG TAB.RAP.DR PO SCH (05:21)
[2017-09-04 05:30] LABS: HEMATOCRIT 39.6 % (36.0-47.0); HEMOGLOBIN 12.7 g/dL (12.0-15.5); MEAN CORPUSCULAR HEMOGLOBIN 25.7 pg (27.0-33.4); MEAN CORPUSCULAR HGB CONC 32.1 g/dL (32.0-36.0); MEAN CORPUSCULAR VOLUME 80 fl (80-97); PLATELET COUNT 166 10^3/uL (150-450); RED BLOOD COUNT 4.94 10^6/uL (3.72-5.28); RED CELL DISTRIBUTION WIDTH 17.9 % (11.5-14.0); WHITE BLOOD COUNT 13.3 10^3/uL (4.0-10.5)
[2017-09-04 05:38] LABS: ARTERIAL BLOOD BASE EXCESS 1.3 mmol/L; ARTERIAL BLOOD H2CO3 1.14 mmol/L (1.05-1.35); ARTERIAL BLOOD HCO3 25.3 mmol/L (20-26); ARTERIAL BLOOD O2 SATURATION 90.7 % (94-98); ARTERIAL BLOOD PCO2 37.9 mmHg (35-45); ARTERIAL BLOOD PH 7.44 (7.35-7.45); ARTERIAL BLOOD PO2 56.7 mmHg (80-100); ARTERIAL BLOOD TOTAL CO2 26.4 mmol/L (21-25)
[2017-09-04 05:49] LABS: ARTERIAL BLOOD FIO2 60%
[2017-09-04 05:57] LABS: ANION GAP 8 (5-19); BLOOD UREA NITROGEN 26 mg/dL (7-20); CALCIUM 8.7 mg/dL (8.4-10.2); CARBON DIOXIDE 26 mmol/L (22-30); CHLORIDE 107 mmol/L (98-107); GLUCOSE 144 mg/dL (75-110); MAGNESIUM 2.3 mg/dL (1.6-2.3); PHOSPHORUS 3.8 mg/dL (2.5-4.5); POTASSIUM 4.4 mmol/L (3.6-5.0); SODIUM 140.9 mmol/L (137-145)
[2017-09-04 06:16] LABS: ABSOLUTE LYMPHOCYTES# (MANUAL) 0.7 10^3/uL (0.5-4.7); ABSOLUTE MONOCYTES # (MANUAL) 0.3 10^3/uL (0.1-1.4); ABSOLUTE NEUTROPHILS# (MANUAL) 12.4 10^3/uL (1.7-8.2); BAND NEUTROPHILS % (MANUAL) 2 % (3-5); BASOPHILS % (MANUAL) 0 % (0-2); EOSINOPHILS % (MANUAL) 0 % (0-6); LYMPHOCYTES % (MANUAL) 5 % (13-45); MONOCYTES % (MANUAL) 2 % (3-13); SEGMENTED NEUTROPHILS % (MAN) 91 % (42-78); TOTAL CELLS COUNTED 100
[2017-09-04 06:17] LABS: ANISOCYTOSIS 1+; HYPOCHROMASIA SLIGHT; OVALOCYTES SLIGHT; PLATELET COMMENT ADEQUATE; POIKILOCYTOSIS SLIGHT; POLYCHROMASIA SLIGHT; TEAR DROP CELLS SLIGHT; TOXIC GRANULATION 1+
--- NOTE | 2017-09-04 07:08 | RADIOLOGY REPORT (SQ) ---
EXAM DESCRIPTION: CHEST SINGLE VIEW CLINICAL HISTORY: resp failure COMPARISON: 09/02/2017 FINDINGS: Single frontal view of the chest. Endotracheal tube with tip 4 cm above the vianney. Right-sided dual-lumen Mediport. NG tube with tip below the diaphragm. Cardiomegaly. Prior median sternotomy. Atherosclerotic calcification aortic arch. Bibasilar opacities and small bilateral pleural effusions. No pneumothorax. No new osseous abnormalities. Upper abdominal soft tissues are unremarkable. IMPRESSION: 1. No significant interval change.
--- NOTE | 2017-09-04 07:55 | PDOC PROGRESS REPORT ---
Subjective Progress Note for:: 09/01/17 Subjective:: Patient intubated and sedated. Patient shows worsening is chest X ray. Patient still not able to be extubated. Nurse concerned about the abdominal bruising from heprain DVT injections. Reason For Visit: COPD EXACERBATION,PNEUMONIA,TOBACCO DEP Physical Exam Vital Signs: Selected Entries 09/01/17 21:35 Temperature 99.1 F Heart Rate ( 75 Monitors) Respiratory 18 Rate Blood Pressure 133/51 H Blood Pressure 78 Mean O2 Sat by Pulse 93 Oximetry Premature 0 Ventricular Counted Beats Arrhythmia Sinu Rhythm Status ST Lead II -0.7 General appearance: PRESENT: no acute distress, obese Head exam: PRESENT: normocephalic Eye exam: PRESENT: PERRLA. ABSENT: scleral icterus Mouth exam: PRESENT: other - ET tube in place Neck exam: ABSENT: carotid bruit, JVD, lymphadenopathy, thyromegaly Respiratory exam: PRESENT: clear to auscultation garrison, decreased breath sounds. ABSENT: rales, rhonchi, wheezes Cardiovascular exam: PRESENT: RRR. ABSENT: diastolic murmur, rubs, systolic murmur Pulses: PRESENT: normal dorsalis pedis pul Vascular exam: PRESENT: normal capillary refill GI/Abdominal exam: PRESENT: normal bowel sounds, soft. ABSENT: distended, guarding, mass, organolmegaly, rebound, tenderness Rectal exam: PRESENT: deferred Extremities exam: PRESENT: full ROM. ABSENT: calf tenderness, clubbing, pedal edema Neurological exam: PRESENT: alert, awake, oriented to person, oriented to place , oriented to time, oriented to situation, CN II-XII grossly intact. ABSENT: motor sensory deficit Psychiatric exam: PRESENT: appropriate affect, normal mood. ABSENT: homicidal ideation, suicidal ideation Skin exam: PRESENT: dry, intact, warm, other - bruising on flanks.. ABSENT: cyanosis, rash Assessment & Plan - Diagnosis (1) Acute respiratory failure with hypoxia Is this a current diagnosis for this admission?: Yes Plan: Acute on chronic respiratory failure due to COPD exacerbation and pneumonia. Patient with minimal improvement on maximum therapy. Will order CPT for worsening CXR. Palliative following. Discussed trach and peg placement with . not ready to decide. (2) COPD exacerbation Is this a current diagnosis for this admission?: Yes Plan: Continue nebs, steroids and antibiotics. Patient currently intubated. Patient difficult to extubate. Please refer to management above. (3) Pneumonia Qualifiers: Pneumonia type: due to unspecified organism Laterality: unspecified laterality Lung location: unspecified part of lung Qualified Code(s): J18.9 - Pneumonia, unspecified organism Is this a current diagnosis for this admission?: Yes Plan: Continue antibiotics which ceftriaxone and azithromycin. (4) UTI (urinary tract infection) Qualifiers: Urinary tract infection type: site unspecified Is this a current diagnosis for this admission?: Yes Plan: Ecoli UTI. Continue ceftriaxone. (5) Diabetes mellitus type 2, controlled Qualifiers: Diabetes mellitus complication status: without complication Diabetes mellitus snf insulin use: with data solutions architect use Qualified Code(s): E11.9 - Type 2 diabetes mellitus without complications; Z79.4 - snf (current) use of insulin; Z79.4 - county extension agent (current) use of insulin; Z79.4 - county extension agent ( current) use of insulin; Z79.4 - county extension agent (current) use of insulin Is this a current diagnosis for this admission?: Yes Plan: Well controlled on SSI. Patient currently on tube feeds. (6) INÉS (obstructive sleep apnea) Is this a current diagnosis for this admission?: Yes Plan: Patient currently intubated. - Time Time Spent with patient: 15-24 minutes - Inpatient Certification Medical Necessity: Significant Comorbidiites Make Outpatient Treatment Too Risky - Patient still intubuated., Need Close Monitoring Due to Risk of Patient Decompensation, Need For Continuous Telemetry Monitoring, Need for Nebulizer Therapy and Monitoring of Response, Need for IV Antibiotics
--- NOTE | 2017-09-04 08:12 | PDOC PROGRESS REPORT ---
Subjective Progress Note for:: 09/02/17 Subjective:: Patient intubated and sedated. Patient shows worsening is chest X ray. Patient still not able to be extubated. Nurse concerned about the abdominal bruising from heprain DVT injections. Reason For Visit: COPD EXACERBATION,PNEUMONIA,TOBACCO DEP Physical Exam Vital Signs: Selected Entries 09/02/17 00:34 Temperature 98.8 F Heart Rate ( 65 Monitors) Respiratory 20 Rate Blood Pressure 133/48 H Blood Pressure 76 Mean O2 Sat by Pulse 92 Oximetry Premature 0 Ventricular Counted Beats Arrhythmia Sinu Rhythm Status ST Lead II -0.6 General appearance: PRESENT: no acute distress, obese Head exam: PRESENT: normocephalic Eye exam: PRESENT: PERRLA. ABSENT: scleral icterus Mouth exam: PRESENT: moist, other - ET tube in place Neck exam: ABSENT: carotid bruit, JVD, lymphadenopathy, thyromegaly Respiratory exam: PRESENT: clear to auscultation garrison, decreased breath sounds. ABSENT: accessory muscle use, rales, rhonchi, wheezes Cardiovascular exam: PRESENT: RRR. ABSENT: diastolic murmur, rubs, systolic murmur GI/Abdominal exam: PRESENT: normal bowel sounds, soft, other - abdominal brusing. ABSENT: distended, guarding, mass, organolmegaly, rebound, tenderness Rectal exam: PRESENT: deferred Extremities exam: ABSENT: calf tenderness, clubbing, pedal edema Neurological exam: ABSENT: motor sensory deficit Psychiatric exam: ABSENT: homicidal ideation, suicidal ideation Skin exam: PRESENT: dry, intact, warm. ABSENT: cyanosis, rash Assessment & Plan - Diagnosis (1) Acute respiratory failure with hypoxia Is this a current diagnosis for this admission?: Yes Plan: Acute on chronic respiratory failure due to COPD exacerbation and pneumonia. Patient with slight improvement as O2 is able to be weaned. Will order CPT for worsening CXR. Palliative following. Discussed trach and peg placement with . not ready to decide. (2) COPD exacerbation Is this a current diagnosis for this admission?: Yes Plan: Continue nebs, steroids and antibiotics. Patient currently intubated. Patient difficult to extubate however oxygen is able to be weaned. Please refer to management above. (3) Pneumonia Qualifiers: Pneumonia type: due to unspecified organism Laterality: unspecified laterality Lung location: unspecified part of lung Qualified Code(s): J18.9 - Pneumonia, unspecified organism Is this a current diagnosis for this admission?: Yes Plan: Continue antibiotics which ceftriaxone and azithromycin. (4) UTI (urinary tract infection) Qualifiers: Urinary tract infection type: site unspecified Is this a current diagnosis for this admission?: Yes Plan: Ecoli UTI. Continue ceftriaxone. (5) Diabetes mellitus type 2, controlled Qualifiers: Diabetes mellitus complication status: without complication Diabetes mellitus terminal operator insulin use: with terminal operator use Qualified Code(s): E11.9 - Type 2 diabetes mellitus without complications; Z79.4 - residential (current) use of insulin; Z79.4 - lobsterman (current) use of insulin; Z79.4 - lobsterman ( current) use of insulin; Z79.4 - lobsterman (current) use of insulin Is this a current diagnosis for this admission?: Yes Plan: Controlled on SSI. Patient currently on tube feeds. (6) INÉS (obstructive sleep apnea) Is this a current diagnosis for this admission?: Yes Plan: Patient currently intubated. - Time Time Spent with patient: Less than 15 minutes - Inpatient Certification Medical Necessity: Other - Patient still intubated and in the ICU.
[2017-09-04] MEDS: BUDESONIDE NEB 0.5 MG/2 ML AMPUL NEB SCH ×2 (08:14→20:54)
--- NOTE | 2017-09-04 08:25 | PDOC PROGRESS REPORT ---
Subjective Progress Note for:: 09/03/17 Subjective:: Patient intubated and sedated. Patient shows worsening is chest X ray. Patient still intubated however on less oxygen. Reason For Visit: COPD EXACERBATION,PNEUMONIA,TOBACCO DEP Physical Exam Vital Signs: Selected Entries 09/03/17 09/03/17 00:36 01:35 Temperature 99.0 F Heart Rate ( 59 Monitors) Respiratory 20 Rate Blood Pressure 133/47 H O2 Sat by Pulse 95 Oximetry End-Tidal CO2 28 Concentration Premature 0 Ventricular Counted Beats Arrhythmia Sinu Rhythm Status ST Lead II -0.7 General appearance: PRESENT: no acute distress Head exam: PRESENT: normocephalic Eye exam: ABSENT: scleral icterus Mouth exam: PRESENT: other - ET tube in place Neck exam: ABSENT: carotid bruit, JVD, lymphadenopathy, thyromegaly Respiratory exam: PRESENT: clear to auscultation garrison. ABSENT: rales, rhonchi, wheezes Cardiovascular exam: PRESENT: RRR. ABSENT: diastolic murmur, rubs, systolic murmur GI/Abdominal exam: PRESENT: normal bowel sounds, soft, other - abdominal bruising. ABSENT: distended, guarding, mass, organolmegaly, rebound, tenderness Rectal exam: PRESENT: deferred Extremities exam: ABSENT: calf tenderness, clubbing, pedal edema Neurological exam: PRESENT: other - sedated. ABSENT: motor sensory deficit Psychiatric exam: ABSENT: homicidal ideation, suicidal ideation Skin exam: PRESENT: dry, intact, warm, other - abdominal wall bruising. ABSENT : cyanosis, rash Results Impressions: KUB X-Ray 08/29/17 00:00 IMPRESSION: NG tube with its tip in the left upper quadrant presumably in the stomach. Chest X-Ray 09/04/17 06:00 IMPRESSION: 1. No significant interval change. Assessment & Plan - Diagnosis (1) Acute respiratory failure with hypoxia Is this a current diagnosis for this admission?: Yes Plan: Acute on chronic respiratory failure due to COPD exacerbation and pneumonia. Patient with slight improvement as O2 is able to be weaned. Pulmonary feels that patient may not improve any further as this may be her baseline. Continue CPT. Palliative following. Discussed trach and peg placement with . not ready to decide. Discussed with pulmonary who plans on extubation to bipap if agrees. (2) COPD exacerbation Is this a current diagnosis for this admission?: Yes Plan: Continue nebs, steroids and antibiotics. Patient currently intubated. Patient difficult to extubate however oxygen is able to be weaned. Please refer to management above. (3) Pneumonia Qualifiers: Pneumonia type: due to unspecified organism Laterality: unspecified laterality Lung location: unspecified part of lung Qualified Code(s): J18.9 - Pneumonia, unspecified organism Is this a current diagnosis for this admission?: Yes Plan: Continue antibiotics which ceftriaxone and azithromycin. (4) UTI (urinary tract infection) Qualifiers: Urinary tract infection type: site unspecified Is this a current diagnosis for this admission?: Yes Plan: Ecoli UTI. Continue ceftriaxone. (5) Diabetes mellitus type 2, controlled Qualifiers: Diabetes mellitus complication status: without complication Diabetes mellitus [facility] insulin use: with buttermaker use Qualified Code(s): E11.9 - Type 2 diabetes mellitus without complications; Z79.4 - buttermaker (current) use of insulin; Z79.4 - buttermaker (current) use of insulin; Z79.4 - buttermaker ( current) use of insulin; Z79.4 - buttermaker (current) use of insulin Is this a current diagnosis for this admission?: Yes Plan: Controlled on SSI. Patient currently on tube feeds. (6) INÉS (obstructive sleep apnea) Is this a current diagnosis for this admission?: Yes Plan: Patient currently intubated. (7) Constipation Is this a current diagnosis for this admission?: Yes Plan: Patient give suppository. - Time Time Spent with patient: Less than 15 minutes - Inpatient Certification Medical Necessity: Need for IV Antibiotics - Patient still intubated. Palliative following. to decided on trach and peg or terminal weaning. Pulmonary considering extubating to bipap to see how patient does at somepoint. Hope for to decide on trach or comfort measures prior to the extubation., Other
[2017-09-04] MEDS: ASCORBIC ACID 500 MG TABLET NG SCH ×2 (12:00→17:53)
[2017-09-04] MEDS: LACTOBACILLUS ACIDOPHILUS 250 MG TAB NG SCH ×2 (12:00→17:52)
[2017-09-04] MEDS: OXYCODONE-ACETAMINOPHEN 5-325 MG TABLET NG PRN (12:01)
[2017-09-04] MEDS: OXYCODONE HCL IR 5 MG TABLET NG PRN (12:02)
[2017-09-04] MEDS: METOPROLOL TARTRATE 25 MG TABLET NG SCH ×2 (12:03→21:57)
[2017-09-04] MEDS: GUAIFENESIN SYRP 200 MG/10 ML UDC NG SCH ×2 (12:04→17:53)
[2017-09-04] MEDS: ASPIRIN 81 MG TABLET, CHEWABLE NG SCH (12:04)
[2017-09-04] MEDS: NITROGLYCERIN 10 MG (0.4 MG/HR) PATCH.TD24 TOP SCH (12:05)
[2017-09-04] MEDS: NICOTINE 14 MG/24 HR PATCH.TD24 TD SCH (12:05)
[2017-09-04] MEDS: METHYLPREDNISOLONE INJ 125 MG/2 ML SDV IV SCH ×2 (12:08→21:57)
[2017-09-04] MEDS: AZITHROMYCIN 500 MG in DEXTROSE 5%-WATER 250 ML IV SCH (12:09)
[2017-09-04] MEDS: CEFTRIAXONE SODIUM 1,000 MG in DEXTROSE 5%-WATER 50 ML IV SCH (17:51)
[2017-09-04] MEDS: ATORVASTATIN CALCIUM 40 MG TABLET NG SCH (21:57)
[2017-09-04] MEDS: MIDAZOLAM 2 MG/2 ML INJ IV PRN (21:57)
[2017-09-05] MEDS: PROPOFOL 100 ML IV PRN ×7 (00:07→20:02)
[2017-09-05] MEDS: IPRATROPIUM/ALBUTEROL 0.5-2.5 MG/3 ML AMPUL NEB SCH ×4 (01:31→20:15)
[2017-09-05 06:16] LABS: ARTERIAL BLOOD BASE EXCESS 1.4 mmol/L; ARTERIAL BLOOD H2CO3 1.21 mmol/L (1.05-1.35); ARTERIAL BLOOD HCO3 25.8 mmol/L (20-26); ARTERIAL BLOOD O2 SATURATION 90.3 % (94-98); ARTERIAL BLOOD PCO2 40.2 mmHg (35-45); ARTERIAL BLOOD PH 7.43 (7.35-7.45); ARTERIAL BLOOD PO2 56.9 mmHg (80-100); ARTERIAL BLOOD TOTAL CO2 27.1 mmol/L (21-25)
[2017-09-05 06:23] LABS: HEMATOCRIT 38.9 % (36.0-47.0); HEMOGLOBIN 12.4 g/dL (12.0-15.5); MEAN CORPUSCULAR HEMOGLOBIN 25.8 pg (27.0-33.4); MEAN CORPUSCULAR VOLUME 81 fl (80-97); PLATELET COUNT 155 10^3/uL (150-450); RED BLOOD COUNT 4.83 10^6/uL (3.72-5.28); RED CELL DISTRIBUTION WIDTH 18.4 % (11.5-14.0); WHITE BLOOD COUNT 11.8 10^3/uL (4.0-10.5)
[2017-09-05 06:35] LABS: ALANINE AMINOTRANSFERASE 39 U/L (9-52); ALBUMIN 2.9 g/dL (3.5-5.0); ALKALINE PHOSPHATASE 44 U/L (38-126); ANION GAP 6 (5-19); ASPARTATE AMINO TRANSFERASE 17 U/L (14-36); BILIRUBIN,DIRECT 0.2 mg/dL (0.0-0.4); BILIRUBIN,TOTAL 0.2 mg/dL (0.2-1.3); BLOOD UREA NITROGEN 26 mg/dL (7-20); CALCIUM 8.7 mg/dL (8.4-10.2); CARBON DIOXIDE 25 mmol/L (22-30); CHLORIDE 109 mmol/L (98-107); GLUCOSE 146 mg/dL (75-110); MAGNESIUM 2.3 mg/dL (1.6-2.3); PHOSPHORUS 3.8 mg/dL (2.5-4.5); POTASSIUM 4.3 mmol/L (3.6-5.0); SODIUM 140.4 mmol/L (137-145); TOTAL PROTEIN 4.8 g/dL (6.3-8.2); TRIGLYCERIDES 110 mg/dL (<150)
[2017-09-05] MEDS: PREGABALIN 50 MG CAPSULE NG SCH ×3 (06:36→21:30)
[2017-09-05] MEDS: LANSOPRAZOLE 30 MG TAB.RAP.DR PO SCH (06:36)
[2017-09-05 06:57] LABS: ABSOLUTE LYMPHOCYTES# (MANUAL) 0.5 10^3/uL (0.5-4.7); ABSOLUTE MONOCYTES # (MANUAL) 0.2 10^3/uL (0.1-1.4); ABSOLUTE NEUTROPHILS# (MANUAL) 11.1 10^3/uL (1.7-8.2); BAND NEUTROPHILS % (MANUAL) 2 % (3-5); BASOPHILS % (MANUAL) 0 % (0-2); EOSINOPHILS % (MANUAL) 0 % (0-6); LYMPHOCYTES % (MANUAL) 4 % (13-45); MONOCYTES % (MANUAL) 2 % (3-13); SEGMENTED NEUTROPHILS % (MAN) 92 % (42-78); TOTAL CELLS COUNTED 100
[2017-09-05 06:59] LABS: ANISOCYTOSIS 1+; BURR CELLS SLIGHT; HYPOCHROMASIA SLIGHT; OVALOCYTES 1+; PLATELET COMMENT ADEQUATE; POIKILOCYTOSIS 1+; SCHISTOCYTES SLIGHT; TEAR DROP CELLS SLIGHT; TOXIC GRANULATION SLIGHT
--- NOTE | 2017-09-05 07:24 | RADIOLOGY REPORT (SQ) ---
EXAM DESCRIPTION: CHEST SINGLE VIEW CLINICAL HISTORY: resp fail COMPARISON: 09/04/2017 FINDINGS: Single frontal view of the chest. Endotracheal tube with tip 4 cm above the vianney. Right-sided dual-lumen Mediport. NG tube with tip below the diaphragm. Cardiomegaly. Prior median sternotomy. Atherosclerotic calcification aortic arch. Bibasilar opacities and small bilateral pleural effusions. No pneumothorax. No new osseous abnormalities. Upper abdominal soft tissues are unremarkable. IMPRESSION: 1. No significant interval change.
[2017-09-05] MEDS: BUDESONIDE NEB 0.5 MG/2 ML AMPUL NEB SCH ×2 (08:30→20:15)
[2017-09-05] MEDS: NITROGLYCERIN 10 MG (0.4 MG/HR) PATCH.TD24 TOP SCH (09:04)
[2017-09-05] MEDS: LACTOBACILLUS ACIDOPHILUS 250 MG TAB NG SCH ×2 (09:04→18:23)
[2017-09-05] MEDS: GUAIFENESIN SYRP 200 MG/10 ML UDC NG SCH ×2 (09:04→18:23)
[2017-09-05] MEDS: METOPROLOL TARTRATE 25 MG TABLET NG SCH ×2 (09:05→21:11)
[2017-09-05] MEDS: OXYCODONE-ACETAMINOPHEN 5-325 MG TABLET NG PRN (09:05)
[2017-09-05] MEDS: OXYCODONE HCL IR 5 MG TABLET NG PRN (09:06)
[2017-09-05] MEDS: ASCORBIC ACID 500 MG TABLET NG SCH ×2 (09:06→18:23)
[2017-09-05] MEDS: ASPIRIN 81 MG TABLET, CHEWABLE NG SCH (09:06)
[2017-09-05] MEDS: AZITHROMYCIN 500 MG in DEXTROSE 5%-WATER 250 ML IV SCH (09:07)
[2017-09-05] MEDS: BISACODYL 10 MG SUPP.RECT PR PRN (09:42)
[2017-09-05] MEDS: METHYLPREDNISOLONE INJ 125 MG/2 ML SDV IV SCH ×2 (09:42→21:30)
[2017-09-05] MEDS: MIDAZOLAM 2 MG/2 ML INJ IV PRN (09:42)
[2017-09-05] MEDS: NICOTINE 14 MG/24 HR PATCH.TD24 TD SCH (10:56)
--- NOTE | 2017-09-05 12:10 | RADIOLOGY REPORT (SQ) ---
EXAM DESCRIPTION: CHEST SINGLE VIEW COMPLETED DATE/TIME: 09/05/2017 10:57 am REASON FOR STUDY: verify ETT placement COMPARISON: CT angio chest 11/27/2016 Chest films 09/01/2017, 09/02/2017, 09/04/2017, 09/05/2017 EXAM PARAMETERS: NUMBER OF VIEWS: One view. TECHNIQUE: Single frontal radiographic view of the chest acquired. RADIATION DOSE: NA LIMITATIONS: None. FINDINGS: Endotracheal tube tip midtrachea. Right permanent central line tip superior vena cava. N asogastric tube tip and side port in the stomach. LUNGS AND PLEURA: There is trace right pleural fluid and bibasilar airspace disease atelectasis versu s pneumonia. Similar appearance compared to 07/06/2015. Partial clearing of the left basilar consol idation over the series of exams. MEDIASTINUM AND HILAR STRUCTURES: No masses. Contour normal. HEART AND VASCULAR STRUCTURES: Mild to moderate cardiomegaly. Old sternotomy and CABG BONES: No acute findings. HARDWARE: As above OTHER: No other significant finding. IMPRESSION: Trace right pleural effusion, bibasilar airspace disease similar compared to 09/05/2017. Tubes and lines in good positioning TECHNICAL DOCUMENTATION: JOB ID: [id number] [employer]- All Rights Reserved
[2017-09-05] MEDS: LACTULOSE SYRUP 20 GM/30 ML UDCUP PO SCH ×2 (15:00→21:30)
[2017-09-05] MEDS: METOCLOPRAMIDE HCL INJ/PF 10 MG/2 ML SDV IV SCH ×2 (15:00→18:24)
--- NOTE | 2017-09-05 17:48 | PDOC PROGRESS REPORT ---
Subjective Progress Note for:: 09/03/17 Subjective:: intubated Reason For Visit: COPD EXACERBATION,PNEUMONIA,TOBACCO DEP Physical Exam Vital Signs: Temp Pulse Resp BP Pulse Ox 98.8 F 65 20 113/44 L 93 09/03/17 07:55 09/03/17 07:55 09/03/17 07:55 09/03/17 07:55 09/03/17 07:55 Intake & Output 09/02/17 09/03/17 09/04/17 06:59 06:59 06:59 Intake Total 2053 2285 Output Total 1445 1620 185 Balance 608 665 -185 Weight 83 kg 81.6 kg General appearance: PRESENT: no acute distress, disheveled. ABSENT: cooperative , mild distress, morbidly obese, severe distress Head exam: PRESENT: atraumatic, normocephalic Eye exam: PRESENT: conjunctiva pale. ABSENT: conjunctival injection, conjunctiva pink, nystagmus, periorbital swelling, scleral icterus Mouth exam: PRESENT: dry mucosa, neck supple, tongue midline, other - ET tube in place. ABSENT: laceration, moist Neck exam: ABSENT: carotid bruit, JVD, lymphadenopathy, thyromegaly, tracheal deviation, tracheostomy Respiratory exam: PRESENT: decreased breath sounds, prolonged expiratory phas, rhonchi, symmetrical, unlabored. ABSENT: accessory muscle use, chest wall tenderness, clear to auscultation garrison, crackles, retraction, stridor, tachypnea , wheezes Cardiovascular exam: PRESENT: RRR, +S1, +S2 Pulses: PRESENT: normal radial pulses GI/Abdominal exam: PRESENT: diminished bowel sounds, soft Gentrourinary exam: PRESENT: indwelling catheter Extremities exam: ABSENT: clubbing, full ROM, joint swelling Musculoskeletal exam: ABSENT: ambulatory, deformity, dislocation, full ROM Neurological exam: ABSENT: alert, awake Skin exam: PRESENT: dry, warm Results Laboratory Results: 09/03/17 05:20 09/03/17 05:20 09/03/17 09/03/17 09/03/17 05:15 05:20 05:20 WBC 11.8 H RBC 5.10 Hgb 13.4 Hct 40.9 MCV 80 MCH 26.3 L MCHC 32.8 RDW 18.2 H Plt Count 168 Seg Neutrophils % Not Reportable Lymphocytes % Not Reportable Monocytes % Not Reportable Eosinophils % Not Reportable Basophils % Not Reportable Absolute Neutrophils Not Reportable Absolute Lymphocytes Not Reportable Absolute Monocytes Not Reportable Absolute Eosinophils Not Reportable Absolute Basophils Not Reportable Carbonic Acid 1.19 HCO3/H2CO3 Ratio 21:1 ABG pH 7.43 ABG pCO2 39.4 ABG pO2 57.6 L ABG HCO3 25.5 ABG O2 Saturation 90.7 L ABG Base Excess 1.2 FiO2 60% Sodium 141.0 Potassium 4.4 Chloride 108 H Carbon Dioxide 27 Anion Gap 6 BUN 27 H Creatinine 0.47 L Est GFR ( Amer) > 60 Est GFR (Non-Af Amer) > 60 Glucose 155 H Calcium 8.7 Magnesium 2.2 08/24/17 08/25/17 06:30 05:20 Troponin I < 0.012 NT-Pro-B Natriuret Pep 795 Impressions: KUB X-Ray 08/29/17 00:00 IMPRESSION: NG tube with its tip in the left upper quadrant presumably in the stomach. Chest X-Ray 09/02/17 06:00 IMPRESSION: Tubes and lines in good positioning Persistent bibasilar airspace disease and trace bilateral pleural effusions, similar compared to 09/01/2017. Assessment & Plan - Diagnosis (1) Acute respiratory failure with hypoxia Is this a current diagnosis for this admission?: Yes Plan: Unable to sustain decrease in FiO2 respiratory rate for longer than one half hour (2) INÉS (obstructive sleep apnea) Is this a current diagnosis for this admission?: Yes Plan: after extubation NIPPV (3) Acute and chronic respiratory failure with hypercapnia Is this a current diagnosis for this admission?: Yes Plan: Chronic hypercapnia (4) GERD (gastroesophageal reflux disease) Qualifiers: Esophagitis presence: without esophagitis Qualified Code(s): K21.9 - Gastro -esophageal reflux disease without esophagitis Is this a current diagnosis for this admission?: Yes Plan: ppi (5) Opiate dependence, continuous Is this a current diagnosis for this admission?: Yes Plan: home meds (6) CHF (congestive heart failure) Qualifiers: Congestive heart failure type: unspecified congestive heart failure type Congestive heart failure chronicity: chronic Is this a current diagnosis for this admission?: Yes (7) Pulmonary hypertension Is this a current diagnosis for this admission?: Yes Plan: INÉS chronic hypoxia (8) Tobacco dependency Is this a current diagnosis for this admission?: Yes Plan: transdermal nicotine - Time Total Critical Time (Minutes): 40
--- NOTE | 2017-09-05 17:50 | PDOC PROGRESS REPORT ---
Subjective Progress Note for:: 09/04/17 Subjective:: intubated Reason For Visit: COPD EXACERBATION,PNEUMONIA,TOBACCO DEP Physical Exam Vital Signs: Temp Pulse Resp BP Pulse Ox 98.8 F 59 L 20 111/45 L 94 09/04/17 08:00 09/04/17 08:00 09/04/17 08:00 09/04/17 08:00 09/04/17 08:00 Intake & Output 09/03/17 09/04/17 09/05/17 06:59 06:59 06:59 Intake Total 2285 411 Output Total 1620 6480 170 Balance 665 -381 -170 Weight 81.6 kg 83.1 kg General appearance: PRESENT: no acute distress, disheveled. ABSENT: cooperative , hard of hearing, mild distress, morbidly obese, severe distress Head exam: PRESENT: atraumatic, normocephalic Eye exam: PRESENT: conjunctiva pale. ABSENT: conjunctival injection, conjunctiva pink, nystagmus, periorbital swelling, scleral icterus Mouth exam: PRESENT: dry mucosa, neck supple, tongue midline, other - ET tube in place. ABSENT: laceration, moist Neck exam: ABSENT: carotid bruit, JVD, lymphadenopathy, thyromegaly, tracheal deviation, tracheostomy Respiratory exam: PRESENT: decreased breath sounds, prolonged expiratory phas, rhonchi, symmetrical, unlabored, wheezes. ABSENT: accessory muscle use, chest wall tenderness, clear to auscultation garrison, crackles, rales, retraction, stridor , tachypnea Cardiovascular exam: PRESENT: RRR, +S1, +S2 Pulses: PRESENT: normal radial pulses GI/Abdominal exam: PRESENT: diminished bowel sounds, soft Gentrourinary exam: PRESENT: indwelling catheter Extremities exam: ABSENT: clubbing, full ROM, joint swelling Musculoskeletal exam: ABSENT: ambulatory, deformity, dislocation, full ROM Neurological exam: ABSENT: alert, awake Skin exam: PRESENT: dry, warm Results Laboratory Results: 09/04/17 05:05 09/04/17 05:05 09/04/17 09/04/17 09/04/17 05:05 05:05 05:05 WBC 13.3 H RBC 4.94 Hgb 12.7 Hct 39.6 MCV 80 MCH 25.7 L MCHC 32.1 RDW 17.9 H Plt Count 166 Seg Neutrophils % Not Reportable Lymphocytes % Not Reportable Monocytes % Not Reportable Eosinophils % Not Reportable Basophils % Not Reportable Absolute Neutrophils Not Reportable Absolute Lymphocytes Not Reportable Absolute Monocytes Not Reportable Absolute Eosinophils Not Reportable Absolute Basophils Not Reportable Carbonic Acid 1.14 HCO3/H2CO3 Ratio 22:1 ABG pH 7.44 ABG pCO2 37.9 ABG pO2 56.7 L ABG HCO3 25.3 ABG O2 Saturation 90.7 L ABG Base Excess 1.3 FiO2 60% Sodium 140.9 Potassium 4.4 Chloride 107 Carbon Dioxide 26 Anion Gap 8 BUN 26 H Creatinine 0.48 L Est GFR ( Amer) > 60 Est GFR (Non-Af Amer) > 60 Glucose 144 H Calcium 8.7 Phosphorus 3.8 Magnesium 2.3 08/24/17 08/25/17 06:30 05:20 Troponin I < 0.012 NT-Pro-B Natriuret Pep 795 Impressions: KUB X-Ray 08/29/17 00:00 IMPRESSION: NG tube with its tip in the left upper quadrant presumably in the stomach. Chest X-Ray 09/04/17 06:00 IMPRESSION: 1. No significant interval change. Assessment & Plan - Diagnosis (1) Acute respiratory failure with hypoxia Is this a current diagnosis for this admission?: Yes Plan: Unable to sustain decrease in FiO2 respiratory rate for longer than one half hour (2) INÉS (obstructive sleep apnea) Is this a current diagnosis for this admission?: Yes Plan: after extubation NIPPV (3) Acute and chronic respiratory failure with hypercapnia Is this a current diagnosis for this admission?: Yes Plan: Chronic hypercapnia (4) GERD (gastroesophageal reflux disease) Qualifiers: Esophagitis presence: without esophagitis Qualified Code(s): K21.9 - Gastro -esophageal reflux disease without esophagitis Is this a current diagnosis for this admission?: Yes Plan: ppi (5) Opiate dependence, continuous Is this a current diagnosis for this admission?: Yes Plan: home meds (6) CHF (congestive heart failure) Qualifiers: Congestive heart failure type: unspecified congestive heart failure type Congestive heart failure chronicity: chronic Is this a current diagnosis for this admission?: Yes (7) Pulmonary hypertension Is this a current diagnosis for this admission?: Yes (8) Tobacco dependency Is this a current diagnosis for this admission?: Yes Plan: transdermal nicotine - Time Total Critical Time (Minutes): 45
--- NOTE | 2017-09-05 17:52 | PDOC PROGRESS REPORT ---
Subjective Progress Note for:: 09/05/17 Subjective:: intubated Reason For Visit: COPD EXACERBATION,PNEUMONIA,TOBACCO DEP Physical Exam Vital Signs: Temp Pulse Resp BP Pulse Ox 98.8 F 78 25 H 119/45 L 92 09/05/17 08:00 09/05/17 08:31 09/05/17 08:31 09/05/17 08:00 09/05/17 08:31 Intake & Output 09/04/17 09/05/17 09/06/17 06:59 06:59 06:59 Intake Total 1959 2184 Output Total 2340 2400 150 Balance -381 -216 -150 Weight 83.1 kg 82 kg General appearance: PRESENT: no acute distress, disheveled. ABSENT: cooperative , mild distress, morbidly obese, severe distress Head exam: PRESENT: atraumatic, normocephalic Eye exam: PRESENT: conjunctiva pale. ABSENT: conjunctival injection, conjunctiva pink, nystagmus, periorbital swelling, scleral icterus Mouth exam: PRESENT: dry mucosa, neck supple, tongue midline, other - ET tube in place. ABSENT: laceration, moist Neck exam: ABSENT: carotid bruit, JVD, lymphadenopathy, thyromegaly, tracheal deviation, tracheostomy Respiratory exam: PRESENT: decreased breath sounds, prolonged expiratory phas, rhonchi, symmetrical, unlabored, wheezes. ABSENT: accessory muscle use, chest wall tenderness, clear to auscultation garrison, crackles, rales, retraction, stridor , tachypnea Cardiovascular exam: PRESENT: RRR, +S1, +S2 Pulses: PRESENT: normal radial pulses GI/Abdominal exam: PRESENT: diminished bowel sounds, soft Gentrourinary exam: PRESENT: indwelling catheter Extremities exam: ABSENT: clubbing, full ROM, joint swelling Musculoskeletal exam: ABSENT: ambulatory, deformity, dislocation, full ROM Neurological exam: ABSENT: alert, awake Skin exam: PRESENT: dry, warm Results Laboratory Results: 09/05/17 05:55 09/05/17 05:55 09/05/17 09/05/17 09/05/17 05:55 05:55 05:55 WBC 11.8 H RBC 4.83 Hgb 12.4 Hct 38.9 MCV 81 MCH 25.8 L MCHC 32.0 RDW 18.4 H Plt Count 155 Seg Neutrophils % Not Reportable Lymphocytes % Not Reportable Monocytes % Not Reportable Eosinophils % Not Reportable Basophils % Not Reportable Absolute Neutrophils Not Reportable Absolute Lymphocytes Not Reportable Absolute Monocytes Not Reportable Absolute Eosinophils Not Reportable Absolute Basophils Not Reportable Carbonic Acid 1.21 HCO3/H2CO3 Ratio 21:1 ABG pH 7.43 ABG pCO2 40.2 ABG pO2 56.9 L ABG HCO3 25.8 ABG O2 Saturation 90.3 L ABG Base Excess 1.4 FiO2 75 % Sodium 140.4 Potassium 4.3 Chloride 109 H Carbon Dioxide 25 Anion Gap 6 BUN 26 H Creatinine 0.43 L Est GFR ( Amer) > 60 Est GFR (Non-Af Amer) > 60 Glucose 146 H Calcium 8.7 Phosphorus 3.8 Magnesium 2.3 Total Bilirubin 0.2 AST 17 ALT 39 Alkaline Phosphatase 44 Total Protein 4.8 L Albumin 2.9 L Triglycerides 110 08/24/17 08/25/17 06:30 05:20 Troponin I < 0.012 NT-Pro-B Natriuret Pep 795 Impressions: KUB X-Ray 08/29/17 00:00 IMPRESSION: NG tube with its tip in the left upper quadrant presumably in the stomach. Chest X-Ray 09/05/17 06:00 IMPRESSION: 1. No significant interval change. Assessment & Plan - Diagnosis (1) Acute respiratory failure with hypoxia Is this a current diagnosis for this admission?: Yes Plan: Unable to sustain decrease in FiO2 respiratory rate for longer than one half hour (2) INÉS (obstructive sleep apnea) Is this a current diagnosis for this admission?: Yes Plan: after extubation NIPPV (3) Acute and chronic respiratory failure with hypercapnia Is this a current diagnosis for this admission?: Yes Plan: Chronic hypercapnia (4) GERD (gastroesophageal reflux disease) Qualifiers: Esophagitis presence: without esophagitis Qualified Code(s): K21.9 - Gastro -esophageal reflux disease without esophagitis Is this a current diagnosis for this admission?: Yes Plan: ppi (5) Opiate dependence, continuous Is this a current diagnosis for this admission?: Yes Plan: home meds (6) CHF (congestive heart failure) Qualifiers: Congestive heart failure type: unspecified congestive heart failure type Congestive heart failure chronicity: chronic Is this a current diagnosis for this admission?: Yes (7) Pulmonary hypertension Is this a current diagnosis for this admission?: Yes (8) Tobacco dependency Is this a current diagnosis for this admission?: Yes - Time Total Critical Time (Minutes): 40
[2017-09-05] MEDS: PANTOPRAZOLE SODIUM 40 MG VIAL IV SCH (21:29)
[2017-09-05] MEDS: ATORVASTATIN CALCIUM 40 MG TABLET NG SCH (21:30)
[2017-09-05] MEDS ORDERED: NORMAL SALINE 1000 ML 1,000 ML IV ONE (22:30)
--- NOTE | 2017-09-05 23:36 | Progress Note ---
Provider Note Provider Note: Palliative Care Follow Up visit 09/05/17 10:35 AM Brief follow up visit with this 72 year old woman who remains intubated and on ventilator with increasing need for higher oxygen levels. She was doing well a couple of days ago with lessening of her sedation in attempt for weaning from Ventilator. However, yesterday she started needed higher Fi02 levels and today is sedated to allow for optimum ventilation. Mrs. Perez is flushed in her face. Respirations are regular but rhonchi audible. B/P 90's /40's and temperature 99 degrees during visit. No response to verbal stimuli, but no expression of pain is not at hospital at this time. Nurse states he did read the "Hard Choices for [place] People " book I left for him but he has not returned my calls. Patient has been intubated for two weeks and emilie soon be faced with decidion about tracheostomy, which patient has said she didn't want. LTAC decision may also have to be made at some point. I will try again to talk with Mr. Perez as I know he needs support at this difficult time. Nurse states she will give him my card again and encourage him to call my cell number.
[2017-09-06] MEDS: PROPOFOL 100 ML IV PRN ×4 (01:52→13:05)
[2017-09-06] MEDS: IPRATROPIUM/ALBUTEROL 0.5-2.5 MG/3 ML AMPUL NEB SCH ×4 (02:07→20:24)
[2017-09-06] MEDS: NORMAL SALINE 1000 ML 1,000 ML IV PRN (03:37)
[2017-09-06 05:58] LABS: ABSOLUTE LYMPHOCYTES (AUTO) 0.8 10^3/uL (0.5-4.7); ABSOLUTE MONOCYTES (AUTO) 0.4 10^3/uL (0.1-1.4); ABSOLUTE NEUT (AUTO) 9.5 10^3/uL (1.7-8.2); BASOPHILS % (AUTO) 0.1 % (0-2); HEMOGLOBIN 11.6 g/dL (12.0-15.5); MEAN CORPUSCULAR HGB CONC 32.2 g/dL (32.0-36.0); MEAN CORPUSCULAR VOLUME 81 fl (80-97); MONOCYTES % (AUTO) 4.1 % (3-13); PLATELET COUNT 158 10^3/uL (150-450); RED BLOOD COUNT 4.46 10^6/uL (3.72-5.28); RED CELL DISTRIBUTION WIDTH 18.1 % (11.5-14.0); SEGMENTED NEUTROPHILS % (AUTO) 88.8 % (42-78); TOTAL CELLS COUNTED % (AUTO) 100 %; WHITE BLOOD COUNT 10.7 10^3/uL (4.0-10.5)
[2017-09-06 05:59] LABS: ARTERIAL BLOOD BASE EXCESS -2.7 mmol/L; ARTERIAL BLOOD FIO2 80%; ARTERIAL BLOOD H2CO3 0.97 mmol/L (1.05-1.35); ARTERIAL BLOOD HCO3 20.9 mmol/L (20-26); ARTERIAL BLOOD O2 SATURATION 95.1 % (94-98); ARTERIAL BLOOD PCO2 32.3 mmHg (35-45); ARTERIAL BLOOD PH 7.43 (7.35-7.45); ARTERIAL BLOOD PO2 72.5 mmHg (80-100); ARTERIAL BLOOD TOTAL CO2 21.9 mmol/L (21-25)
[2017-09-06 06:09] LABS: ANION GAP 7 (5-19); BLOOD UREA NITROGEN 19 mg/dL (7-20); CALCIUM 8.1 mg/dL (8.4-10.2); CARBON DIOXIDE 22 mmol/L (22-30); CHLORIDE 114 mmol/L (98-107); GLUCOSE 110 mg/dL (75-110); MAGNESIUM 2.2 mg/dL (1.6-2.3); POTASSIUM 3.8 mmol/L (3.6-5.0); SODIUM 143.4 mmol/L (137-145)
[2017-09-06] MEDS: PREGABALIN 50 MG CAPSULE NG SCH ×3 (06:33→22:49)
[2017-09-06] MEDS: LACTULOSE SYRUP 20 GM/30 ML UDCUP PO SCH ×3 (06:33→22:48)
--- NOTE | 2017-09-06 08:11 | RADIOLOGY REPORT (SQ) ---
EXAM DESCRIPTION: CHEST SINGLE VIEW COMPLETED DATE/TIME: 09/06/2017 7:55 am REASON FOR STUDY: Pt intubated COMPARISON: 09/05/2017 NUMBER OF VIEWS: One view. TECHNIQUE: Single frontal radiographic image of the chest acquired. LIMITATIONS: None. FINDINGS: LUNGS AND PLEURA: Grossly stable in appearance with persistent bibasilar airspace disease and small effusions. Airspace disease has slightly increased since yesterday. MEDIASTINUM AND HILAR STRUCTURES: Stable heart size and mediastinal structures. HEART AND VASCULAR STRUCTURES: Stable appearance. SUPPORT DEVICES: Appropriate location without change. BONES: No acute findings. OTHER: No other significant finding. IMPRESSION: Support lines and tubes remain in satisfactory position. There has been a slight increa se in bibasilar airspace disease. TECHNICAL DOCUMENTATION: JOB ID: [id number]- All Rights Reserved
[2017-09-06] MEDS: BUDESONIDE NEB 0.5 MG/2 ML AMPUL NEB SCH ×2 (08:12→20:24)
[2017-09-06] MEDS: OXYCODONE HCL IR 5 MG TABLET NG PRN ×2 (09:16→17:03)
[2017-09-06] MEDS: OXYCODONE-ACETAMINOPHEN 5-325 MG TABLET NG PRN ×2 (09:16→17:04)
[2017-09-06] MEDS: ASPIRIN 81 MG TABLET, CHEWABLE NG SCH (13:04)
[2017-09-06] MEDS: LACTOBACILLUS ACIDOPHILUS 250 MG TAB NG SCH ×2 (13:04→17:02)
[2017-09-06] MEDS: GUAIFENESIN SYRP 200 MG/10 ML UDC NG SCH ×2 (13:05→17:05)
[2017-09-06] MEDS: METOCLOPRAMIDE HCL INJ/PF 10 MG/2 ML SDV IV SCH ×3 (13:06→17:05)
[2017-09-06] MEDS: PANTOPRAZOLE SODIUM 40 MG VIAL IV SCH ×2 (13:06→22:48)
[2017-09-06] MEDS: ASCORBIC ACID 500 MG TABLET NG SCH ×2 (13:06→17:04)
[2017-09-06] MEDS: METOPROLOL TARTRATE 25 MG TABLET NG SCH ×2 (13:07→22:49)
[2017-09-06] MEDS: NICOTINE 14 MG/24 HR PATCH.TD24 TD SCH (13:07)
[2017-09-06] MEDS: NITROGLYCERIN 10 MG (0.4 MG/HR) PATCH.TD24 TOP SCH (13:07)
[2017-09-06] MEDS: METHYLPREDNISOLONE INJ 125 MG/2 ML SDV IV SCH ×2 (13:08→22:48)
[2017-09-06] MEDS: AZITHROMYCIN 500 MG in DEXTROSE 5%-WATER 250 ML IV SCH (13:12)
[2017-09-06] MEDS: MIDAZOLAM 2 MG/2 ML INJ IV PRN (22:48)
[2017-09-06] MEDS: ATORVASTATIN CALCIUM 40 MG TABLET NG SCH (22:49)
--- NOTE | 2017-09-06 23:40 | Progress Note ---
Provider Note Provider Note: Palliative Care follow up visit 09/06/17 1:05- 1:25 pm I was able to talk with patients this AM per telephone. He says he was happy to find patient awake this AM and able to communicate with him. We discussed he conversations with me in the past about not wanting trach, but wanting to be full code. he is not able to make her a DNR because she has always requested full aggressive measures. He said she only stayed at the pulmonary rehab hospital in [place] for a week because they were not able to help her. He was disappointed and admits she returned to smoking as soon as she go home. Mr. Perez said he did read the "Hard Choices" booklet I left for him and he understands but cannot go against her wishes. We talked about the possibility of tracheostomy since she has been intubated for two weeks now. He told me she had been intubated for 18 days once and didnt need trach then. He will talk with Dr. Aguilar today. Mrs Perez was still awake when I visited later. She responded with nods to most of my questions. She seems anxious, with her expression and the fact she wanted me to hold her hand and did not let go for long time. I told her to rest and try to sleep to relax her breathing and she shook her head no. Patient still is requiring high FiO2 (80%) so weaning may take several more days. VS are stable with no fever. Abd soft but rhonchi audible. Labs are stable, but in spite of tube feedings, Albumin and protein levels are low. Will follow for emotional support but I do not think is going to change code status. Will discuss with patient again after she is extubated,and alert.
[2017-09-07] MEDS: IPRATROPIUM/ALBUTEROL 0.5-2.5 MG/3 ML AMPUL NEB SCH ×4 (01:59→19:55)
[2017-09-07] MEDS: LACTULOSE SYRUP 20 GM/30 ML UDCUP PO SCH ×3 (06:49→22:43)
[2017-09-07] MEDS: PREGABALIN 50 MG CAPSULE NG SCH ×3 (06:49→22:44)
--- NOTE | 2017-09-07 07:11 | RADIOLOGY REPORT (SQ) ---
EXAM DESCRIPTION: CHEST SINGLE VIEW CLINICAL HISTORY: resp failure COMPARISON: 09/06/2017 FINDINGS: Single frontal view of the chest. Endotracheal tube with tip 4 cm above the vianney. Right-sided dual-lumen Mediport. NG tube with tip below the diaphragm. Cardiomegaly. Prior median sternotomy. Atherosclerotic calcification aortic arch. Bibasilar opacities and small bilateral pleural effusions. No pneumothorax. No new osseous abnormalities. Upper abdominal soft tissues are unremarkable. IMPRESSION: 1. No significant interval change. Electronically signed by: Manuel Lu 09/07/2017 6:10 AM
[2017-09-07 07:34] LABS: ARTERIAL BLOOD BASE EXCESS -3.2 mmol/L; ARTERIAL BLOOD H2CO3 0.88 mmol/L (1.05-1.35); ARTERIAL BLOOD HCO3 19.7 mmol/L (20-26); ARTERIAL BLOOD PCO2 29.3 mmHg (35-45); ARTERIAL BLOOD PH 7.45 (7.35-7.45); ARTERIAL BLOOD PO2 58.9 mmHg (80-100); ARTERIAL BLOOD TOTAL CO2 20.6 mmol/L (21-25)
[2017-09-07 07:37] LABS: ABSOLUTE LYMPHOCYTES (AUTO) 1.7 10^3/uL (0.5-4.7); ABSOLUTE MONOCYTES (AUTO) 0.7 10^3/uL (0.1-1.4); ABSOLUTE NEUT (AUTO) 9.4 10^3/uL (1.7-8.2); ARTERIAL BLOOD FIO2 80%; BASOPHILS % (AUTO) 0.2 % (0-2); EOSINOPHILS % (AUTO) 0.4 % (0-6); HEMATOCRIT 36.1 % (36.0-47.0); HEMOGLOBIN 11.7 g/dL (12.0-15.5); LYMPHOCYTES % (AUTO) 14.4 % (13-45); MEAN CORPUSCULAR HEMOGLOBIN 25.9 pg (27.0-33.4); MEAN CORPUSCULAR HGB CONC 32.4 g/dL (32.0-36.0); MEAN CORPUSCULAR VOLUME 80 fl (80-97); MONOCYTES % (AUTO) 5.9 % (3-13); PLATELET COUNT 156 10^3/uL (150-450); RED BLOOD COUNT 4.52 10^6/uL (3.72-5.28); RED CELL DISTRIBUTION WIDTH 17.8 % (11.5-14.0); SEGMENTED NEUTROPHILS % (AUTO) 79.1 % (42-78); TOTAL CELLS COUNTED % (AUTO) 100 %; WHITE BLOOD COUNT 11.9 10^3/uL (4.0-10.5)
[2017-09-07 07:55] LABS: ANION GAP 9 (5-19); BLOOD UREA NITROGEN 12 mg/dL (7-20); CALCIUM 7.7 mg/dL (8.4-10.2); CARBON DIOXIDE 20 mmol/L (22-30); CHLORIDE 117 mmol/L (98-107); GLUCOSE 64 mg/dL (75-110); MAGNESIUM 2.1 mg/dL (1.6-2.3); PHOSPHORUS 2.6 mg/dL (2.5-4.5); POTASSIUM 3.2 mmol/L (3.6-5.0); SODIUM 145.7 mmol/L (137-145)
[2017-09-07] MEDS: BUDESONIDE NEB 0.5 MG/2 ML AMPUL NEB SCH ×2 (08:14→19:55)
[2017-09-07] MEDS: METOCLOPRAMIDE HCL INJ/PF 10 MG/2 ML SDV IV SCH ×3 (09:14→17:44)
[2017-09-07] MEDS: PANTOPRAZOLE SODIUM 40 MG VIAL IV SCH ×2 (09:14→22:43)
[2017-09-07] MEDS: LACTOBACILLUS ACIDOPHILUS 250 MG TAB NG SCH ×2 (09:14→17:44)
[2017-09-07] MEDS: METHYLPREDNISOLONE INJ 125 MG/2 ML SDV IV SCH ×2 (09:15→22:43)
[2017-09-07] MEDS: GUAIFENESIN SYRP 200 MG/10 ML UDC NG SCH ×2 (09:15→17:44)
[2017-09-07] MEDS: METOPROLOL TARTRATE 25 MG TABLET NG SCH ×2 (09:15→22:44)
[2017-09-07] MEDS: ASCORBIC ACID 500 MG TABLET NG SCH ×2 (09:15→17:44)
[2017-09-07] MEDS: ASPIRIN 81 MG TABLET, CHEWABLE NG SCH (09:16)
[2017-09-07] MEDS: NITROGLYCERIN 10 MG (0.4 MG/HR) PATCH.TD24 TOP SCH (09:16)
[2017-09-07] MEDS: NORMAL SALINE 1000 ML 1,000 ML IV PRN ×2 (09:17→17:44)
[2017-09-07] MEDS: PROPOFOL 100 ML IV PRN ×3 (10:22→19:53)
[2017-09-07] MEDS: NICOTINE 14 MG/24 HR PATCH.TD24 TD SCH (10:23)
[2017-09-07] MEDS: AZITHROMYCIN 500 MG in DEXTROSE 5%-WATER 250 ML IV SCH (10:29)
[2017-09-07] MEDS: OXYCODONE HCL IR 5 MG TABLET NG PRN ×2 (10:41→22:44)
[2017-09-07] MEDS: OXYCODONE-ACETAMINOPHEN 5-325 MG TABLET NG PRN ×2 (10:42→22:45)
--- NOTE | 2017-09-07 15:03 | PDOC CONSULTATION ---
Consultation Consult Date: 09/07/17 Attending physician:: POOL GODFREY Consult reason:: PEG and trach History of Present Illness Admission Date/PCP: 08/23/17 15:24 TYSON ROLDAN MD History of Present Illness: Patient is a 72-year-old white female with COPD, smoking abuse, narcotic dependency, multiple previous hospitalizations requiring intubation for respiratory failure, now in the ICU for nearly 2 weeks on ventilator, tube feeds via nasogastric tube Consensus is that the patient requires percutaneous endoscopic gastrostomy and tracheostomy tube placement to facilitate long-term placement.. Past Medical History Cardiac Medical History: Reports: Coronary Artery Disease - CABG, Hyperlipidema - zocor , Hypertension Pulmonary Medical History: Reports: Asthma, Bronchitis, Chronic Obstructive Pulmonary Disease (COPD), Pneumonia - MRSA 2014 , Sleep Apnea - bipap , Tuberculosis - +PPD in s - on meds x 1 year EENT Medical History: Denies: Ears, Nose Neurological Medical History: Denies: Multiple Sclerosis Endocrine Medical History: Reports: Diabetes Mellitus Type 1, Diabetes Mellitus Type 2 Renal/ Medical History: Reports: End Stage Renal Disease Malignancy Medical History: Reports: None GI Medical History: Reports: Gastroesophageal Reflux Disease Denies: Crohn's Disease, Ulcerative Colitis Musculoskeltal Medical History: Reports: Arthritis Skin Medical History: Reports: Psoriasis Psychiatric Medical History: Reports: Depression, Tobacco Dependency Traumatic Medical History: Denies: Traumatic Brain Injury Hematology: Denies: Anemia, Hemophilia, Sickle Cell Disease Infectious Medical History: Reports: Hepatitis B, Hepatitis C, 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, 2014 Past Surgical History Past Surgical History: Reports: Appendectomy, Cholecystectomy, Coronary Artery Bypass Graft - 2008 x 2 grafts , Hysterectomy, Orthopedic Surgery - Left footsurgery, cyst removal from left hand, Tonsillectomy Denies: Amputation Social History Lives with: Spouse/Significant other Smoking Status: Current Every Day Smoker Frequency of Alcohol Use: None Hx Recreational Drug Use: No Drugs: None Hx Prescription Drug Abuse: No - Advance Directive Resuscitation Status: Full Code Family History Family History: CAD, DM, Hypertension Parental Family History Reviewed: Yes Children Family History Reviewed: Yes Sibling(s) Family History Reviewed.: Yes Medication/Allergy Home Medications: Albuterol Sulfate [Ventolin HFA MDI 18 GM] 1 puff IH Q4HP PRN 08/23/17 Ascorbic Acid [Vitamin C 500 mg Tablet] 500 mg PO BID 08/23/17 Aspirin [Ecotrin 81 mg EC Tablet] 81 mg PO DAILY 08/23/17 Atorvastatin Calcium [Lipitor 40 mg Tablet] 40 mg PO QHS 08/23/17 Budesonide [Pulmicort Neb 0.5 mg/2 ml Ampul] 2 ml NEB Q12 08/23/17 Cholecalciferol (Vitamin D3) [Vitamin D3] 5,000 unit PO DAILY 08/23/17 Cyanocobalamin (Vitamin B-12) [Vitamin B-12 500 mcg Tablet] 500 mcg PO BID 08/23 Esomeprazole Magnesium [Nexium] 40 mg PO DAILY 08/23/17 Fluticasone/Salmeterol [Advair 500-50 Diskus 14 Dose/Diskus] 1 puff IH Q12 08/23 Insulin Glargine,Hum.rec.anlog [Lantus Solostar] 15 units SQ QHS 08/23/17 Ipratropium/Albuterol Sulfate [Iprat-Albut 0.5-3(2.5) mg/3 ml] 3 ml NEB Q6 08/23 Iron Ps Complex/B12/Folic Acid [Poly-Iron 150 Forte Capsule] 1 cap PO BID Melatonin [Melatin] 3 mg PO QHS 08/23/17 Metoprolol Succinate [Toprol Xl 25 mg Tab.sr] 25 mg PO Q12 08/23/17 Nitroglycerin [Nitro-Dur 10 mg (0.4MG/Hr) Transdermal Patch] 1 patch TOP DAILY 08/23/17 Oxycodone HCl/Acetaminophen [Endocet 10-325 mg Tablet] 1 tab PO Q6HP PRN Potassium Chloride [Klor-Con 10 Meq Tablet.sa] 10 meq PO DAILY 08/23/17 Pregabalin [Lyrica] 50 mg PO Q8 08/23/17 Ranolazine [Ranexa 500 mg Tab.sr] 500 mg PO Q12 08/23/17 Roflumilast [Daliresp 500 mcg Tablet] 500 mcg PO QAM 08/23/17 Ropinirole HCl [Requip 2 mg Tablet] 2 mg PO QHS 08/23/17 Tiotropium [place] [Spiriva Handihaler 5 Cap/Kit (18 Mcg/Cap)] 1 puff IH DAILY 08/23/17 Torsemide [Demadex 20 mg Tablet] 20 mg PO QAM 08/23/17 Allergies/Adverse Reactions: vancomycin Allergy (Verified 07/02/17 10:56) Generalized Itching levofloxacin Adverse Reaction (Verified 07/02/17 10:56) Diarrhea linezolid [From Zyvox] Adverse Reaction (Verified 07/02/17 10:56) Diarrhea Review of Systems ROS unobtainable: Due to endotracheal tube Physical Exam Vital Signs: Temp Pulse Resp BP Pulse Ox 100.0 F 67 20 112/40 L 96 09/07/17 14:05 09/07/17 13:58 09/07/17 14:05 09/07/17 14:05 09/07/17 14:05 Intake & Output 09/06/17 09/07/17 09/08/17 06:59 06:59 06:59 Intake Total 3195 2794 Output Total 2445 2235 175 Balance 750 559 -175 Weight 85 kg 84.7 kg Exam: Patient examined intensive care unit. She is intubated, sedated on deprivation , with oral tracheal intubation managing her airway, nasogastric tube using tube feeds. She cannot participate in the examination. Neck exam: PRESENT: other - 2 small transverse scratches, healed over the presternal area. Respiratory exam: PRESENT: rhonchi, wheezes Cardiovascular exam: PRESENT: other - No apparent murmur GI/Abdominal exam: PRESENT: other - Soft nontender epigastric transverse scar consistent with previous tube insertion Results Laboratory Results: 09/07/17 07:00 09/07/17 07:00 09/07/17 09/07/17 09/07/17 07:00 07:00 07:00 WBC 11.9 H RBC 4.52 Hgb 11.7 L Hct 36.1 MCV 80 MCH 25.9 L MCHC 32.4 RDW 17.8 H Plt Count 156 Seg Neutrophils % 79.1 H Lymphocytes % 14.4 Monocytes % 5.9 Eosinophils % 0.4 Basophils % 0.2 Absolute Neutrophils 9.4 H Absolute Lymphocytes 1.7 Absolute Monocytes 0.7 Absolute Eosinophils 0.0 Absolute Basophils 0.0 Carbonic Acid 0.88 L HCO3/H2CO3 Ratio 22:1 ABG pH 7.45 ABG pCO2 29.3 L ABG pO2 58.9 L ABG HCO3 19.7 L ABG O2 Saturation 92.0 L ABG Base Excess -3.2 FiO2 80% Sodium 145.7 H Potassium 3.2 L Chloride 117 H Carbon Dioxide 20 L Anion Gap 9 BUN 12 Creatinine 0.42 L Est GFR ( Amer) > 60 Est GFR (Non-Af Amer) > 60 Glucose 64 L Calcium 7.7 L Phosphorus 2.6 Magnesium 2.1 08/24/17 08/25/17 06:30 05:20 Troponin I < 0.012 NT-Pro-B Natriuret Pep 795 Impressions: KUB X-Ray 08/29/17 00:00 IMPRESSION: NG tube with its tip in the left upper quadrant presumably in the stomach. Chest X-Ray 09/07/17 06:00 IMPRESSION: 1. No significant interval change. Assessment & Plan - Diagnosis (1) Acute respiratory failure with hypoxia Is this a current diagnosis for this admission?: Yes Plan: With ventilatory dependency, refractory to medical management; recurrent chronic COPD, smoking abuse Recommendations: 1. Agree with plans for percutaneous endoscopic gastrostomy tube placement, and tracheostomy tube placement to assist in long-term healthcare maintenance and management. 2. We will set this up for the next 24 hours; will hold tube feeds after midnight and molecular weight heparin injections. - Time Time Spent: 30 to 50 Minutes Smoking Cessation Education: 3 to 10 minutes
[2017-09-07] MEDS: MIDAZOLAM 2 MG/2 ML INJ IV PRN ×2 (15:49→22:43)
[2017-09-07] MEDS: ATORVASTATIN CALCIUM 40 MG TABLET NG SCH (22:44)
[2017-09-08] MEDS: PROPOFOL 100 ML IV PRN ×6 (00:03→22:24)
[2017-09-08] MEDS: IPRATROPIUM/ALBUTEROL 0.5-2.5 MG/3 ML AMPUL NEB SCH ×4 (02:03→20:54)
--- NOTE | 2017-09-08 02:24 | PDOC PROGRESS REPORT ---
Subjective Progress Note for:: 09/04/17 Subjective:: Patient with end stage lung disease with continued tobacco abuse. Patient intubated and sedated. Patient still intubated however requiring less oxygen. Patient difficult to wean. Palliative care following. considering comfort measures verses trach and peg. Reason For Visit: COPD EXACERBATION,PNEUMONIA,TOBACCO DEP Physical Exam Vital Signs: Temp Pulse Resp BP Pulse Ox 99.3 F 88 18 122/52 L 90 L 09/04/17 22:00 09/04/17 22:00 09/04/17 22:00 09/04/17 22:00 09/04/17 22:00 Intake & Output 09/03/17 09/04/17 09/05/17 06:59 06:59 06:59 Intake Total 2285 1959 1302 Output Total 1620 2340 1950 Balance 995 -372 -108 Weight 81.6 kg 83.1 kg General appearance: PRESENT: no acute distress, morbidly obese, well-developed, well-nourished Head exam: PRESENT: normocephalic Eye exam: PRESENT: PERRLA, other - darkening of skin around the eyes. ABSENT: scleral icterus Ear exam: PRESENT: normal external ear exam Mouth exam: PRESENT: moist, other - tongue moved to the side by ET tube Neck exam: ABSENT: carotid bruit, JVD, lymphadenopathy, thyromegaly Respiratory exam: PRESENT: clear to auscultation garrison, other - on vent. ABSENT: rales, rhonchi, wheezes Cardiovascular exam: PRESENT: RRR. ABSENT: diastolic murmur, rubs, systolic murmur GI/Abdominal exam: PRESENT: hypoactive bowel sounds, normal bowel sounds, soft. ABSENT: distended, guarding, mass, organolmegaly, rebound, tenderness Rectal exam: PRESENT: deferred Gentrourinary exam: PRESENT: indwelling catheter Extremities exam: PRESENT: full ROM. ABSENT: calf tenderness, clubbing, pedal edema Neurological exam: PRESENT: other - sedated intubated. ABSENT: motor sensory deficit Psychiatric exam: ABSENT: homicidal ideation, suicidal ideation Skin exam: PRESENT: dry, intact, warm. ABSENT: cyanosis, rash Results Laboratory Results: 09/04/17 05:05 09/04/17 05:05 09/04/17 09/04/17 09/04/17 05:05 05:05 05:05 WBC 13.3 H RBC 4.94 Hgb 12.7 Hct 39.6 MCV 80 MCH 25.7 L MCHC 32.1 RDW 17.9 H Plt Count 166 Seg Neutrophils % Not Reportable Lymphocytes % Not Reportable Monocytes % Not Reportable Eosinophils % Not Reportable Basophils % Not Reportable Absolute Neutrophils Not Reportable Absolute Lymphocytes Not Reportable Absolute Monocytes Not Reportable Absolute Eosinophils Not Reportable Absolute Basophils Not Reportable Carbonic Acid 1.14 HCO3/H2CO3 Ratio 22:1 ABG pH 7.44 ABG pCO2 37.9 ABG pO2 56.7 L ABG HCO3 25.3 ABG O2 Saturation 90.7 L ABG Base Excess 1.3 FiO2 60% Sodium 140.9 Potassium 4.4 Chloride 107 Carbon Dioxide 26 Anion Gap 8 BUN 26 H Creatinine 0.48 L Est GFR ( Amer) > 60 Est GFR (Non-Af Amer) > 60 Glucose 144 H Calcium 8.7 Phosphorus 3.8 Magnesium 2.3 08/24/17 08/25/17 06:30 05:20 Troponin I < 0.012 NT-Pro-B Natriuret Pep 795 Impressions: KUB X-Ray 08/29/17 00:00 IMPRESSION: NG tube with its tip in the left upper quadrant presumably in the stomach. Chest X-Ray 09/04/17 06:00 IMPRESSION: 1. No significant interval change. Assessment & Plan - Diagnosis (1) Acute respiratory failure with hypoxia Is this a current diagnosis for this admission?: Yes Plan: Acute on chronic respiratory failure due to COPD exacerbation and pneumonia. Patient with slight improvement as O2 is able to be weaned. Pulmonary feels that patient may not improve any further as this may be her baseline. Continue CPT. Palliative following. Discussed trach and peg placement with . not ready to decide. not ready to attempt extubation. Patient still intubated. (2) COPD exacerbation Is this a current diagnosis for this admission?: Yes Plan: Continue nebs, steroids and antibiotics. Patient currently intubated. Patient difficult to extubate however oxygen is able to be weaned. (3) Pneumonia Qualifiers: Pneumonia type: due to unspecified organism Laterality: unspecified laterality Lung location: unspecified part of lung Qualified Code(s): J18.9 - Pneumonia, unspecified organism Is this a current diagnosis for this admission?: Yes Plan: Continue antibiotics which ceftriaxone and azithromycin. (4) UTI (urinary tract infection) Qualifiers: Urinary tract infection type: site unspecified Is this a current diagnosis for this admission?: Yes Plan: Ecoli UTI. Continue ceftriaxone. (5) Diabetes mellitus type 2, controlled Qualifiers: Diabetes mellitus complication status: without complication Diabetes mellitus terminal manager insulin use: with chcf use Qualified Code(s): E11.9 - Type 2 diabetes mellitus without complications; Z79.4 - USP (current) use of insulin; Z79.4 - technician terminal and repeater (current) use of insulin; Z79.4 - technician terminal and repeater ( current) use of insulin; Z79.4 - technician terminal and repeater (current) use of insulin Is this a current diagnosis for this admission?: Yes Plan: Controlled on SSI. Patient currently on tube feeds. (6) INÉS (obstructive sleep apnea) Is this a current diagnosis for this admission?: Yes Plan: Patient currently intubated. (7) Constipation Is this a current diagnosis for this admission?: Yes Plan: Patient still without bowel movement. Will start lactulose and reglan. - Time Time Spent with patient: 15-24 minutes Anticipated discharge: Other - Inpatient Certification Medical Necessity: Other - Patient still intubated. May end up being trached and peg. Awaiting decision.
--- NOTE | 2017-09-08 02:31 | PDOC PROGRESS REPORT ---
Subjective Progress Note for:: 09/05/17 Subjective:: Patient with end stage lung disease with continued tobacco abuse. Patient intubated and sedated. Patient still intubated however requiring less oxygen. Patient difficult to wean. Palliative care following. considering comfort measures verses trach and peg. Patient awake. Patient still not having bowel movement. Reason For Visit: COPD EXACERBATION,PNEUMONIA,TOBACCO DEP Physical Exam Vital Signs: Temp Pulse Resp BP Pulse Ox 98.8 F 66 20 102/39 L 90 L 09/05/17 22:04 09/05/17 21:52 09/05/17 22:04 09/05/17 22:04 09/05/17 22:04 Intake & Output 09/04/17 09/05/17 09/06/17 06:59 06:59 06:59 Intake Total 1959 2184 950 Output Total 2340 2400 1845 Balance -381 -216 -895 Weight 83.1 kg 82 kg General appearance: PRESENT: no acute distress, obese, well-developed, well- nourished Head exam: PRESENT: normocephalic Eye exam: PRESENT: EOMI, other - dark circles around eyes. ABSENT: scleral icterus Mouth exam: PRESENT: other - tongue pushed to the side by ET tube Neck exam: ABSENT: carotid bruit, JVD, lymphadenopathy, thyromegaly Respiratory exam: PRESENT: clear to auscultation garrison. ABSENT: rales, rhonchi, wheezes Cardiovascular exam: PRESENT: RRR. ABSENT: diastolic murmur, rubs, systolic murmur GI/Abdominal exam: PRESENT: hypoactive bowel sounds, normal bowel sounds, soft. ABSENT: distended, guarding, mass, organolmegaly, rebound, tenderness Rectal exam: PRESENT: deferred Extremities exam: PRESENT: full ROM. ABSENT: calf tenderness, clubbing, pedal edema Neurological exam: PRESENT: altered, awake. ABSENT: motor sensory deficit Psychiatric exam: ABSENT: homicidal ideation, suicidal ideation Skin exam: PRESENT: dry, intact, warm, other - abdominal wall bruising. ABSENT : cyanosis, rash Results Laboratory Results: 09/05/17 05:55 09/05/17 05:55 09/05/17 09/05/17 09/05/17 05:55 05:55 05:55 WBC 11.8 H RBC 4.83 Hgb 12.4 Hct 38.9 MCV 81 MCH 25.8 L MCHC 32.0 RDW 18.4 H Plt Count 155 Seg Neutrophils % Not Reportable Lymphocytes % Not Reportable Monocytes % Not Reportable Eosinophils % Not Reportable Basophils % Not Reportable Absolute Neutrophils Not Reportable Absolute Lymphocytes Not Reportable Absolute Monocytes Not Reportable Absolute Eosinophils Not Reportable Absolute Basophils Not Reportable Carbonic Acid 1.21 HCO3/H2CO3 Ratio 21:1 ABG pH 7.43 ABG pCO2 40.2 ABG pO2 56.9 L ABG HCO3 25.8 ABG O2 Saturation 90.3 L ABG Base Excess 1.4 FiO2 75 % Sodium 140.4 Potassium 4.3 Chloride 109 H Carbon Dioxide 25 Anion Gap 6 BUN 26 H Creatinine 0.43 L Est GFR ( Amer) > 60 Est GFR (Non-Af Amer) > 60 Glucose 146 H Calcium 8.7 Phosphorus 3.8 Magnesium 2.3 Total Bilirubin 0.2 AST 17 ALT 39 Alkaline Phosphatase 44 Total Protein 4.8 L Albumin 2.9 L Triglycerides 110 08/24/17 08/25/17 06:30 05:20 Troponin I < 0.012 NT-Pro-B Natriuret Pep 795 Impressions: KUB X-Ray 08/29/17 00:00 IMPRESSION: NG tube with its tip in the left upper quadrant presumably in the stomach. Chest X-Ray 09/05/17 06:00 IMPRESSION: 1. No significant interval change. Assessment & Plan - Diagnosis (1) Acute respiratory failure with hypoxia Is this a current diagnosis for this admission?: Yes Plan: Acute on chronic respiratory failure due to COPD exacerbation and pneumonia. Patient with slight improvement as O2 is able to be weaned. Pulmonary feels that patient may not improve any further as this may be her baseline. Continue CPT. Palliative following. Discussed trach and peg placement with . not ready to decide. not ready to attempt extubation. Patient still intubated. Dr. Aguilar has met with the unfortunately, I was unable to make it. (2) COPD exacerbation Is this a current diagnosis for this admission?: Yes Plan: Continue nebs, steroids and antibiotics. Patient currently intubated. Patient difficult to extubate however oxygen is able to be weaned. (3) Pneumonia Qualifiers: Pneumonia type: due to unspecified organism Laterality: unspecified laterality Lung location: unspecified part of lung Qualified Code(s): J18.9 - Pneumonia, unspecified organism Is this a current diagnosis for this admission?: Yes Plan: Treated with ceftriaxone and azithromycin. (4) UTI (urinary tract infection) Qualifiers: Urinary tract infection type: site unspecified Is this a current diagnosis for this admission?: Yes Plan: Ecoli UTI. Treated with ceftriaxone. (5) Diabetes mellitus type 2, controlled Qualifiers: Diabetes mellitus complication status: without complication Diabetes mellitus fdc insulin use: with emt intermediate use Qualified Code(s): E11.9 - Type 2 diabetes mellitus without complications; Z79.4 - senior living (current) use of insulin; Z79.4 - long term care administrator (current) use of insulin; Z79.4 - long term care administrator ( current) use of insulin; Z79.4 - long term care administrator (current) use of insulin Is this a current diagnosis for this admission?: Yes Plan: Controlled on SSI. Patient currently on tube feeds. (6) INÉS (obstructive sleep apnea) Is this a current diagnosis for this admission?: Yes Plan: Patient currently intubated. (7) Constipation Is this a current diagnosis for this admission?: Yes Plan: Patient still without bowel movement. Continue lactulose and reglan. - Time Time Spent with patient: 15-24 minutes - Inpatient Certification Medical Necessity: Other - Patient intubated awaitng patient's decision Trach versus comfort measures.
--- NOTE | 2017-09-08 02:36 | PDOC PROGRESS REPORT ---
Subjective Progress Note for:: 09/06/17 Subjective:: Patient with end stage lung disease with continued tobacco abuse. Patient intubated and sedated. Patient still intubated however requiring less oxygen. Patient difficult to wean. Palliative care following. decided on trach and peg. Patient having bowel movements. Reason For Visit: COPD EXACERBATION,PNEUMONIA,TOBACCO DEP Physical Exam Vital Signs: Temp Pulse Resp BP Pulse Ox 99.9 F 71 20 130/48 H 97 09/06/17 20:00 09/06/17 18:00 09/06/17 19:05 09/06/17 19:05 09/06/17 19:05 Intake & Output 09/05/17 09/06/17 09/07/17 06:59 06:59 06:59 Intake Total 2184 3195 Output Total 2400 2445 1600 Balance -216 750 -1600 Weight 82 kg 85 kg General appearance: PRESENT: no acute distress, obese, well-developed, well- nourished Eye exam: ABSENT: scleral icterus Ear exam: PRESENT: normal external ear exam Mouth exam: PRESENT: moist, other - ET tube in place Neck exam: ABSENT: carotid bruit, JVD, lymphadenopathy, thyromegaly Respiratory exam: PRESENT: clear to auscultation garrison. ABSENT: rales, rhonchi, wheezes Cardiovascular exam: PRESENT: RRR. ABSENT: diastolic murmur, rubs, systolic murmur Pulses: PRESENT: normal dorsalis pedis pul Vascular exam: PRESENT: normal capillary refill GI/Abdominal exam: PRESENT: normal bowel sounds, soft. ABSENT: distended, guarding, mass, organolmegaly, rebound, tenderness Rectal exam: PRESENT: deferred Gentrourinary exam: PRESENT: indwelling catheter Extremities exam: PRESENT: full ROM. ABSENT: calf tenderness, clubbing, pedal edema Neurological exam: PRESENT: alert, awake. ABSENT: motor sensory deficit Psychiatric exam: PRESENT: agitated. ABSENT: homicidal ideation, suicidal ideation Skin exam: PRESENT: dry, intact, warm. ABSENT: cyanosis, rash Results Laboratory Results: 09/06/17 05:35 09/06/17 05:35 09/06/17 09/06/17 09/06/17 05:35 05:35 05:35 WBC 10.7 H RBC 4.46 Hgb 11.6 L Hct 36.0 MCV 81 MCH 26.0 L MCHC 32.2 RDW 18.1 H Plt Count 158 Seg Neutrophils % 88.8 H Lymphocytes % 7.0 L Monocytes % 4.1 Eosinophils % 0.0 Basophils % 0.1 Absolute Neutrophils 9.5 H Absolute Lymphocytes 0.8 Absolute Monocytes 0.4 Absolute Eosinophils 0.0 Absolute Basophils 0.0 Carbonic Acid 0.97 L HCO3/H2CO3 Ratio 21:1 ABG pH 7.43 ABG pCO2 32.3 L ABG pO2 72.5 L ABG HCO3 20.9 ABG O2 Saturation 95.1 ABG Base Excess -2.7 FiO2 80% Sodium 143.4 Potassium 3.8 Chloride 114 H Carbon Dioxide 22 Anion Gap 7 BUN 19 Creatinine 0.37 L Est GFR ( Amer) > 60 Est GFR (Non-Af Amer) > 60 Glucose 110 Calcium 8.1 L Magnesium 2.2 08/24/17 08/25/17 06:30 05:20 Troponin I < 0.012 NT-Pro-B Natriuret Pep 795 Impressions: KUB X-Ray 08/29/17 00:00 IMPRESSION: NG tube with its tip in the left upper quadrant presumably in the stomach. Chest X-Ray 09/06/17 06:00 IMPRESSION: Support lines and tubes remain in satisfactory position. There has been a slight increase in bibasilar airspace disease. Assessment & Plan - Diagnosis (1) Acute respiratory failure with hypoxia Is this a current diagnosis for this admission?: Yes Plan: Acute on chronic respiratory failure due to COPD exacerbation and pneumonia. Patient with slight improvement as O2 is able to be weaned. Pulmonary feels that patient may not improve any further as this may be her baseline. Continue CPT. Palliative following. decided on trach and peg. Surgery consulted. (2) COPD exacerbation Is this a current diagnosis for this admission?: Yes Plan: Continue nebs, steroids and antibiotics. Patient currently intubated. Patient difficult to extubate however oxygen is able to be weaned. Plan is for trach and peg. Surgery consulted. (3) Pneumonia Qualifiers: Pneumonia type: due to unspecified organism Laterality: unspecified laterality Lung location: unspecified part of lung Qualified Code(s): J18.9 - Pneumonia, unspecified organism Is this a current diagnosis for this admission?: Yes Plan: Treated with ceftriaxone and azithromycin. (4) UTI (urinary tract infection) Qualifiers: Urinary tract infection type: site unspecified Is this a current diagnosis for this admission?: Yes Plan: Ecoli UTI. Treated with ceftriaxone. (5) Diabetes mellitus type 2, controlled Qualifiers: Diabetes mellitus complication status: without complication Diabetes mellitus intermediate insulin use: with cnc mill operator use Qualified Code(s): E11.9 - Type 2 diabetes mellitus without complications; Z79.4 - needle molder (current) use of insulin; Z79.4 - skilled nursing (current) use of insulin; Z79.4 - needle molder ( current) use of insulin; Z79.4 - skilled nursing (current) use of insulin Is this a current diagnosis for this admission?: Yes Plan: Controlled on SSI. Patient currently on tube feeds. (6) INÉS (obstructive sleep apnea) Is this a current diagnosis for this admission?: Yes Plan: Patient currently intubated. (7) Constipation Is this a current diagnosis for this admission?: Yes Plan: Patient still without bowel movement. Continue lactulose and reglan. Patient had bowel movement. - Time Time Spent with patient: 15-24 minutes - Inpatient Certification Medical Necessity: Need for Surgery
--- NOTE | 2017-09-08 02:43 | PDOC PROGRESS REPORT ---
Subjective Progress Note for:: 09/07/17 Subjective:: Patient with end stage lung disease with continued tobacco abuse. Patient intubated and sedated. Patient still intubated however requiring less oxygen. Patient difficult to wean. Palliative care following. decided on trach and peg. Surgery consulted. Patient awake and alert. She is a little agitated. Reason For Visit: COPD EXACERBATION,PNEUMONIA,TOBACCO DEP Physical Exam Vital Signs: Selected Entries 09/07/17 22:06 Temperature 99.9 F Heart Rate ( 80 Monitors) Respiratory 20 Rate Blood Pressure 125/50 L Blood Pressure 75 Mean O2 Sat by Pulse 97 Oximetry End-Tidal CO2 24 Concentration Premature 0 Ventricular Counted Beats Arrhythmia SV R Rhythm Status ST Lead II -0.5 General appearance: PRESENT: no acute distress, obese, well-developed, well- nourished Eye exam: ABSENT: scleral icterus Mouth exam: PRESENT: moist, other - ET tube in place Neck exam: ABSENT: carotid bruit, JVD, lymphadenopathy, thyromegaly Respiratory exam: PRESENT: clear to auscultation garrison. ABSENT: rales, rhonchi, wheezes Cardiovascular exam: PRESENT: RRR. ABSENT: diastolic murmur, rubs, systolic murmur GI/Abdominal exam: PRESENT: hypoactive bowel sounds, soft. ABSENT: distended, guarding, mass, organolmegaly, rebound, tenderness Rectal exam: PRESENT: deferred Extremities exam: PRESENT: full ROM. ABSENT: calf tenderness, clubbing, pedal edema Neurological exam: PRESENT: alert, awake, CN II-XII grossly intact. ABSENT: motor sensory deficit Psychiatric exam: PRESENT: agitated, anxious. ABSENT: homicidal ideation, suicidal ideation Skin exam: PRESENT: dry, intact, warm. ABSENT: cyanosis, rash Results Laboratory Results: 09/07/17 07:00 09/07/17 07:00 09/07/17 09/07/17 09/07/17 07:00 07:00 07:00 WBC 11.9 H RBC 4.52 Hgb 11.7 L Hct 36.1 MCV 80 MCH 25.9 L MCHC 32.4 RDW 17.8 H Plt Count 156 Seg Neutrophils % 79.1 H Lymphocytes % 14.4 Monocytes % 5.9 Eosinophils % 0.4 Basophils % 0.2 Absolute Neutrophils 9.4 H Absolute Lymphocytes 1.7 Absolute Monocytes 0.7 Absolute Eosinophils 0.0 Absolute Basophils 0.0 Carbonic Acid 0.88 L HCO3/H2CO3 Ratio 22:1 ABG pH 7.45 ABG pCO2 29.3 L ABG pO2 58.9 L ABG HCO3 19.7 L ABG O2 Saturation 92.0 L ABG Base Excess -3.2 FiO2 80% Sodium 145.7 H Potassium 3.2 L Chloride 117 H Carbon Dioxide 20 L Anion Gap 9 BUN 12 Creatinine 0.42 L Est GFR ( Amer) > 60 Est GFR (Non-Af Amer) > 60 Glucose 64 L Calcium 7.7 L Phosphorus 2.6 Magnesium 2.1 08/24/17 08/25/17 06:30 05:20 Troponin I < 0.012 NT-Pro-B Natriuret Pep 795 Impressions: KUB X-Ray 08/29/17 00:00 IMPRESSION: NG tube with its tip in the left upper quadrant presumably in the stomach. Chest X-Ray 09/07/17 06:00 IMPRESSION: 1. No significant interval change. Assessment & Plan - Diagnosis (1) Acute respiratory failure with hypoxia Is this a current diagnosis for this admission?: Yes Plan: Acute on chronic respiratory failure due to COPD exacerbation and pneumonia. Patient with slight improvement as O2 is able to be weaned. Pulmonary feels that patient may not improve any further as this may be her baseline. Continue CPT. Palliative following. decided on trach and peg. Plan on trach and peg by surgery tomorrow. Tube feeds being held and patient has been off heparin due to subcutaneous bleeding on the abdomen. (2) COPD exacerbation Is this a current diagnosis for this admission?: Yes Plan: Continue nebs, steroids and antibiotics. Patient currently intubated. Patient difficult to extubate however oxygen is able to be weaned. Plan is for trach and peg tomorrow. (3) Pneumonia Qualifiers: Pneumonia type: due to unspecified organism Laterality: unspecified laterality Lung location: unspecified part of lung Qualified Code(s): J18.9 - Pneumonia, unspecified organism Is this a current diagnosis for this admission?: Yes Plan: Treated with ceftriaxone and azithromycin. (4) UTI (urinary tract infection) Qualifiers: Urinary tract infection type: site unspecified Is this a current diagnosis for this admission?: Yes Plan: Ecoli UTI. Treated with ceftriaxone. (5) Diabetes mellitus type 2, controlled Qualifiers: Diabetes mellitus complication status: without complication Diabetes mellitus intermediate frame tender insulin use: with intermediate frame tender use Qualified Code(s): E11.9 - Type 2 diabetes mellitus without complications; Z79.4 - intermediate (current) use of insulin; Z79.4 - termite technician (current) use of insulin; Z79.4 - intermediate ( current) use of insulin; Z79.4 - intermediate (current) use of insulin Is this a current diagnosis for this admission?: Yes Plan: Controlled on SSI. Tube feeds being held for trach and peg. (6) INÉS (obstructive sleep apnea) Is this a current diagnosis for this admission?: Yes Plan: Patient currently intubated. Plan for tach and peg tomorrow. (7) Constipation Is this a current diagnosis for this admission?: Yes Plan: Resolved. - Time Time Spent with patient: 15-24 minutes - Inpatient Certification Medical Necessity: Need for Surgery - Trach and peg tomorrow.
[2017-09-08] MEDS: PREGABALIN 50 MG CAPSULE NG SCH ×3 (05:23→22:26)
[2017-09-08] MEDS: LACTULOSE SYRUP 20 GM/30 ML UDCUP PO SCH ×3 (05:23→22:25)
[2017-09-08 05:58] LABS: ARTERIAL BLOOD BASE EXCESS -4.8 mmol/L; ARTERIAL BLOOD H2CO3 0.78 mmol/L (1.05-1.35); ARTERIAL BLOOD HCO3 17.8 mmol/L (20-26); ARTERIAL BLOOD O2 SATURATION 95.2 % (94-98); ARTERIAL BLOOD PCO2 25.8 mmHg (35-45); ARTERIAL BLOOD PH 7.46 (7.35-7.45); ARTERIAL BLOOD TOTAL CO2 18.6 mmol/L (21-25)
[2017-09-08 05:59] LABS: ARTERIAL BLOOD FIO2 80%
[2017-09-08 06:00] LABS: HEMATOCRIT 33.3 % (36.0-47.0); HEMOGLOBIN 10.8 g/dL (12.0-15.5); MEAN CORPUSCULAR HEMOGLOBIN 25.8 pg (27.0-33.4); MEAN CORPUSCULAR HGB CONC 32.3 g/dL (32.0-36.0); MEAN CORPUSCULAR VOLUME 80 fl (80-97); PLATELET COUNT 139 10^3/uL (150-450); RED BLOOD COUNT 4.18 10^6/uL (3.72-5.28); WHITE BLOOD COUNT 12.2 10^3/uL (4.0-10.5)
[2017-09-08 06:15] LABS: INTERNATIONAL RATION (INR) 1.11; PARTIAL THROMBOPLASTIN TIME 36.9 SEC (23.5-35.8)
--- NOTE | 2017-09-08 06:37 | RADIOLOGY REPORT (SQ) ---
EXAM DESCRIPTION: CHEST SINGLE VIEW CLINICAL HISTORY: resp failure COMPARISON: 09/07/2017 FINDINGS: Single frontal view of the chest. Endotracheal tube with tip 4 cm above the vianney. Right-sided dual-lumen Mediport. NG tube with tip below the diaphragm. Cardiomegaly. Prior median sternotomy. Atherosclerotic calcification aortic arch. Bibasilar opacities and small bilateral pleural effusions. No pneumothorax. No new osseous abnormalities. Upper abdominal soft tissues are unremarkable. IMPRESSION: 1. No significant interval change.
[2017-09-08 06:41] LABS: ALANINE AMINOTRANSFERASE 40 U/L (9-52); ALBUMIN 2.2 g/dL (3.5-5.0); ALKALINE PHOSPHATASE 36 U/L (38-126); ANION GAP 10 (5-19); ASPARTATE AMINO TRANSFERASE 15 U/L (14-36); BILIRUBIN,DIRECT 0.3 mg/dL (0.0-0.4); BILIRUBIN,TOTAL 0.4 mg/dL (0.2-1.3); BLOOD UREA NITROGEN 12 mg/dL (7-20); CALCIUM 7.8 mg/dL (8.4-10.2); CARBON DIOXIDE 18 mmol/L (22-30); CHLORIDE 116 mmol/L (98-107); GLUCOSE 121 mg/dL (75-110); MAGNESIUM 2.2 mg/dL (1.6-2.3); PHOSPHORUS 2.7 mg/dL (2.5-4.5); POTASSIUM 3.1 mmol/L (3.6-5.0); SODIUM 143.5 mmol/L (137-145); TOTAL PROTEIN 4.1 g/dL (6.3-8.2); TRIGLYCERIDES 75 mg/dL (<150)
[2017-09-08 07:23] LABS: ABSOLUTE LYMPHOCYTES# (MANUAL) 0.5 10^3/uL (0.5-4.7); ABSOLUTE NEUTROPHILS# (MANUAL) 11.7 10^3/uL (1.7-8.2); BASOPHILS % (MANUAL) 0 % (0-2); EOSINOPHILS % (MANUAL) 0 % (0-6); LYMPHOCYTES % (MANUAL) 2 % (13-45); MONOCYTES % (MANUAL) 0 % (3-13); SEGMENTED NEUTROPHILS % (MAN) 96 % (42-78); TOTAL CELLS COUNTED 100
[2017-09-08 07:26] LABS: ANISOCYTOSIS 1+; BURR CELLS SLIGHT; HYPOCHROMASIA SLIGHT; OVALOCYTES SLIGHT; PLATELET COMMENT DECREASED; PLATELET LARGE PRESENT; POIKILOCYTOSIS SLIGHT; POLYCHROMASIA SLIGHT
[2017-09-08] MEDS: BUDESONIDE NEB 0.5 MG/2 ML AMPUL NEB SCH ×2 (08:19→20:54)
[2017-09-08] MEDS ORDERED: POTASSI CL 20 MEQ/50 ML RIDER 20 MEQ/50 ML RTUPB IV ONE (08:20)
[2017-09-08] MEDS: POTASSI CL 20 MEQ/50 ML RIDER 20 MEQ/50 ML RTUPB IV SCH ×2 (08:27→10:00)
[2017-09-08] MEDS: LACTOBACILLUS ACIDOPHILUS 250 MG TAB NG SCH ×2 (09:13→17:13)
[2017-09-08] MEDS: ASPIRIN 81 MG TABLET, CHEWABLE NG SCH (09:13)
[2017-09-08] MEDS: GUAIFENESIN SYRP 200 MG/10 ML UDC NG SCH ×2 (09:13→17:13)
[2017-09-08] MEDS: ASCORBIC ACID 500 MG TABLET NG SCH ×2 (09:13→17:14)
[2017-09-08] MEDS: PANTOPRAZOLE SODIUM 40 MG VIAL IV SCH (09:16)
[2017-09-08] MEDS: METHYLPREDNISOLONE INJ 125 MG/2 ML SDV IV SCH (09:16)
[2017-09-08] MEDS: METOPROLOL TARTRATE 25 MG TABLET NG SCH ×2 (09:16→22:25)
[2017-09-08] MEDS: METOCLOPRAMIDE HCL INJ/PF 10 MG/2 ML SDV IV SCH ×3 (09:18→17:13)
[2017-09-08] MEDS: NICOTINE 14 MG/24 HR PATCH.TD24 TD SCH (10:56)
[2017-09-08] MEDS: NITROGLYCERIN 10 MG (0.4 MG/HR) PATCH.TD24 TOP SCH (10:56)
--- NOTE | 2017-09-08 11:24 | PDOC PROGRESS REPORT ---
Subjective Progress Note for:: 09/08/17 Subjective:: The patient is a 72-year-old female who has severe, end-stage COPD. She has been in the hospital and intubated for approximately 2 weeks with failure to wean. Her has now decided to pursue tracheostomy with PEG. Reason For Visit: COPD EXACERBATION,PNEUMONIA,TOBACCO DEP Physical Exam Vital Signs: Temp Pulse Resp BP Pulse Ox 97.7 F 65 20 117/46 L 95 09/08/17 10:00 09/08/17 10:00 09/08/17 10:00 09/08/17 10:00 09/08/17 10:00 Intake & Output 09/07/17 09/08/17 09/09/17 06:59 06:59 06:59 Intake Total 2794 3547 Output Total 5507 67312 160 Balance 559 -48789 -160 Weight 84.7 kg 87.8 kg Additional comments: The patient does appear to be somewhat edematous today. This is in comparison to my last exam which is approximately 10-12 days ago. Her lungs however are much clear without rhonchi or wheezing today. Her cardiac exam is regular without murmurs, gallops or rubs. The abdomen is soft. Bowel sounds are present. She does not have guarding or rebound noted and there are no hernias or masses present. Patient appears to have generalized anasarca but no pitting edema. She has purpura around her eyelids which is stable. She has some other areas of purpura on the upper extremities and wrists. These areas appear to be stable. The skin is otherwise clean, warm, dry and intact. Results Laboratory Results: 09/08/17 05:45 09/08/17 05:35 09/08/17 09/08/17 09/08/17 05:35 05:35 05:45 WBC 12.2 H RBC 4.18 Hgb 10.8 L Hct 33.3 L MCV 80 MCH 25.8 L MCHC 32.3 RDW 18.0 H Plt Count 139 L Seg Neutrophils % Not Reportable Lymphocytes % Not Reportable Monocytes % Not Reportable Eosinophils % Not Reportable Basophils % Not Reportable Absolute Neutrophils Not Reportable Absolute Lymphocytes Not Reportable Absolute Monocytes Not Reportable Absolute Eosinophils Not Reportable Absolute Basophils Not Reportable Carbonic Acid 0.78 L HCO3/H2CO3 Ratio 22:1 ABG pH 7.46 H ABG pCO2 25.8 L ABG pO2 70.0 L ABG HCO3 17.8 L ABG O2 Saturation 95.2 ABG Base Excess -4.8 FiO2 80% Sodium 143.5 Potassium 3.1 L Chloride 116 H Carbon Dioxide 18 L Anion Gap 10 BUN 12 Creatinine 0.36 L Est GFR ( Amer) > 60 Est GFR (Non-Af Amer) > 60 Glucose 121 H Calcium 7.8 L Phosphorus 2.7 Magnesium 2.2 Total Bilirubin 0.4 AST 15 ALT 40 Alkaline Phosphatase 36 L Total Protein 4.1 L Albumin 2.2 L Triglycerides 75 08/24/17 08/25/17 06:30 05:20 Troponin I < 0.012 NT-Pro-B Natriuret Pep 795 Impressions: KUB X-Ray 08/29/17 00:00 IMPRESSION: NG tube with its tip in the left upper quadrant presumably in the stomach. Chest X-Ray 09/08/17 06:00 IMPRESSION: 1. No significant interval change. Assessment & Plan - Diagnosis (1) Acute respiratory failure with hypoxia Is this a current diagnosis for this admission?: Yes Plan: The patient is scheduled to have a tracheostomy placed today by Dr. Castillo. Volume status may be positive at this point. Once surgery has been accomplished , diuresis may be helpful. Her exam and chest x-ray report increased volume. (2) COPD exacerbation Is this a current diagnosis for this admission?: Yes Plan: Continue bronchodilators, wean steroids. (3) Hypokalemia Is this a current diagnosis for this admission?: Yes Plan: Repleting IV today. (4) Respiratory failure Qualifiers: Chronicity: acute Respiratory failure complication: hypoxia Qualified Code(s): J96.01 - Acute respiratory failure with hypoxia Plan: For trach today. (5) Diabetes mellitus type 2, controlled Qualifiers: Diabetes mellitus complication status: without complication Diabetes mellitus chcf insulin use: with termite technician use Qualified Code(s): E11.9 - Type 2 diabetes mellitus without complications; Z79.4 - long-term (current) use of insulin; Z79.4 - long-term (current) use of insulin; Z79.4 - long-term ( current) use of insulin; Z79.4 - long-term (current) use of insulin Is this a current diagnosis for this admission?: Yes Plan: Despite fairly aggressive doses of corticosteroids, blood sugars remain in good range. Continue sliding scale. (6) INÉS (obstructive sleep apnea) Is this a current diagnosis for this admission?: Yes Plan: This will essentially resolve with tracheostomy. (7) Opiate dependence, continuous Is this a current diagnosis for this admission?: Yes Plan: Unfortunately, the use of chronic opiates exacerbates the patient's respiratory illness. (8) UTI (urinary tract infection) Qualifiers: Urinary tract infection type: site unspecified Hematuria presence: without hematuria Qualified Code(s): N39.0 - Urinary tract infection, site not specified Plan: Urine culture is growing greater than 100,000 E. coli. She was treated with rocephin. (9) Metabolic acidosis Is this a current diagnosis for this admission?: Yes Plan: The patient has a non-anion gap metabolic acidosis. I suspect that this is secondary to receiving saline. I discontinued IV fluids. I will follow. - Time Time Spent with patient: 25-34 minutes - Inpatient Certification Medical Necessity: Need for Nebulizer Therapy and Monitoring of Response - Patient remains intubated in the intensive care unit., Need for Surgery
[2017-09-08] MEDS ORDERED: ENOXAPARIN SODIUM INJ 40 MG/0.4 ML DISP.SYRIN SUBCUT ONE (12:30)
[2017-09-08] MEDS: MIDAZOLAM 2 MG/2 ML INJ IV PRN ×3 (13:44→22:26)
--- NOTE | 2017-09-08 16:52 | PDOC PROGRESS REPORT ---
Subjective Progress Note for:: 09/06/17 Subjective:: intubated Reason For Visit: COPD EXACERBATION,PNEUMONIA,TOBACCO DEP Physical Exam Vital Signs: Temp Pulse Resp BP Pulse Ox 98.8 F 65 13 132/49 H 92 09/06/17 08:00 09/06/17 08:00 09/06/17 08:00 09/06/17 08:00 09/06/17 08:00 Intake & Output 09/05/17 09/06/17 09/07/17 06:59 06:59 06:59 Intake Total 2184 3195 Output Total 2400 2445 125 Balance -216 750 -125 Weight 82 kg 85 kg General appearance: PRESENT: no acute distress, disheveled, thin. ABSENT: mild distress, morbidly obese, obese, severe distress Head exam: PRESENT: atraumatic, normocephalic Eye exam: PRESENT: conjunctiva pale, EOMI. ABSENT: conjunctival injection, conjunctiva pink, nystagmus, periorbital swelling, scleral icterus Mouth exam: PRESENT: dry mucosa, neck supple, tongue midline, other - ET tube. ABSENT: laceration, moist Neck exam: ABSENT: carotid bruit, JVD, lymphadenopathy, thyromegaly, tracheal deviation, tracheostomy Respiratory exam: PRESENT: crackles, decreased breath sounds, prolonged expiratory phas, rhonchi, symmetrical, unlabored. ABSENT: accessory muscle use , chest wall tenderness, clear to auscultation garrison, rales, retraction, stridor, tachypnea Cardiovascular exam: PRESENT: RRR, +S1, +S2 Pulses: PRESENT: normal radial pulses GI/Abdominal exam: PRESENT: diminished bowel sounds, soft Gentrourinary exam: PRESENT: indwelling catheter Extremities exam: ABSENT: clubbing, joint swelling Musculoskeletal exam: ABSENT: deformity, dislocation Neurological exam: PRESENT: awake. ABSENT: alert Skin exam: PRESENT: dry, warm Results Laboratory Results: 09/06/17 05:35 09/06/17 05:35 09/06/17 09/06/17 09/06/17 05:35 05:35 05:35 WBC 10.7 H RBC 4.46 Hgb 11.6 L Hct 36.0 MCV 81 MCH 26.0 L MCHC 32.2 RDW 18.1 H Plt Count 158 Seg Neutrophils % 88.8 H Lymphocytes % 7.0 L Monocytes % 4.1 Eosinophils % 0.0 Basophils % 0.1 Absolute Neutrophils 9.5 H Absolute Lymphocytes 0.8 Absolute Monocytes 0.4 Absolute Eosinophils 0.0 Absolute Basophils 0.0 Carbonic Acid 0.97 L HCO3/H2CO3 Ratio 21:1 ABG pH 7.43 ABG pCO2 32.3 L ABG pO2 72.5 L ABG HCO3 20.9 ABG O2 Saturation 95.1 ABG Base Excess -2.7 FiO2 80% Sodium 143.4 Potassium 3.8 Chloride 114 H Carbon Dioxide 22 Anion Gap 7 BUN 19 Creatinine 0.37 L Est GFR ( Amer) > 60 Est GFR (Non-Af Amer) > 60 Glucose 110 Calcium 8.1 L Magnesium 2.2 08/24/17 08/25/17 06:30 05:20 Troponin I < 0.012 NT-Pro-B Natriuret Pep 795 Impressions: KUB X-Ray 08/29/17 00:00 IMPRESSION: NG tube with its tip in the left upper quadrant presumably in the stomach. Chest X-Ray 09/06/17 06:00 IMPRESSION: Support lines and tubes remain in satisfactory position. There has been a slight increase in bibasilar airspace disease. Assessment & Plan - Diagnosis (1) Acute respiratory failure with hypoxia Is this a current diagnosis for this admission?: Yes Plan: unable to sustain a reduction in peep or FIO2 (2) INÉS (obstructive sleep apnea) Is this a current diagnosis for this admission?: Yes Plan: after extubation NIPPV (3) Acute and chronic respiratory failure with hypercapnia Is this a current diagnosis for this admission?: Yes Plan: try to sustain baseline hypercapnia (4) GERD (gastroesophageal reflux disease) Qualifiers: Esophagitis presence: without esophagitis Qualified Code(s): K21.9 - Gastro -esophageal reflux disease without esophagitis Is this a current diagnosis for this admission?: Yes Plan: ppi (5) Opiate dependence, continuous Is this a current diagnosis for this admission?: Yes Plan: home meds (6) CHF (congestive heart failure) Qualifiers: Congestive heart failure type: unspecified congestive heart failure type Congestive heart failure chronicity: chronic Is this a current diagnosis for this admission?: Yes Plan: continue current tx (7) Pulmonary hypertension Is this a current diagnosis for this admission?: Yes (8) Tobacco dependency Is this a current diagnosis for this admission?: Yes Plan: transdermal nicotine - Time Total Critical Time (Minutes): 45
--- NOTE | 2017-09-08 16:57 | PDOC PROGRESS REPORT ---
Subjective Progress Note for:: 09/07/17 Subjective:: intubated Reason For Visit: COPD EXACERBATION,PNEUMONIA,TOBACCO DEP Physical Exam Vital Signs: Temp Pulse Resp BP Pulse Ox 101.3 F H 97 24 H 92/41 L 92 09/07/17 08:00 09/07/17 08:14 09/07/17 08:14 09/07/17 08:00 09/07/17 08:14 Intake & Output 09/06/17 09/07/17 09/08/17 06:59 06:59 06:59 Intake Total 3195 2794 Output Total 2445 2235 Balance 750 559 Weight 85 kg 84.7 kg General appearance: PRESENT: no acute distress, disheveled. ABSENT: mild distress, morbidly obese, severe distress Head exam: PRESENT: atraumatic, normocephalic Eye exam: PRESENT: conjunctiva pale. ABSENT: conjunctival injection, conjunctiva pink, nystagmus, periorbital swelling, scleral icterus Mouth exam: PRESENT: dry mucosa, neck supple, tongue midline, other - ET tube. ABSENT: laceration, moist Neck exam: ABSENT: carotid bruit, JVD, lymphadenopathy, thyromegaly, tracheal deviation, tracheostomy Respiratory exam: PRESENT: decreased breath sounds, prolonged expiratory phas, rales, rhonchi, symmetrical, unlabored. ABSENT: accessory muscle use, chest wall tenderness, clear to auscultation garrison, crackles, retraction, stridor, tachypnea Cardiovascular exam: PRESENT: RRR, +S1, +S2 Pulses: PRESENT: normal radial pulses GI/Abdominal exam: PRESENT: diminished bowel sounds, soft Gentrourinary exam: PRESENT: indwelling catheter Extremities exam: ABSENT: clubbing, joint swelling Musculoskeletal exam: ABSENT: deformity, dislocation Neurological exam: PRESENT: awake. ABSENT: alert Skin exam: PRESENT: dry, warm Results Laboratory Results: 09/07/17 07:00 09/07/17 07:00 09/07/17 09/07/17 09/07/17 07:00 07:00 07:00 WBC 11.9 H RBC 4.52 Hgb 11.7 L Hct 36.1 MCV 80 MCH 25.9 L MCHC 32.4 RDW 17.8 H Plt Count 156 Seg Neutrophils % 79.1 H Lymphocytes % 14.4 Monocytes % 5.9 Eosinophils % 0.4 Basophils % 0.2 Absolute Neutrophils 9.4 H Absolute Lymphocytes 1.7 Absolute Monocytes 0.7 Absolute Eosinophils 0.0 Absolute Basophils 0.0 Carbonic Acid 0.88 L HCO3/H2CO3 Ratio 22:1 ABG pH 7.45 ABG pCO2 29.3 L ABG pO2 58.9 L ABG HCO3 19.7 L ABG O2 Saturation 92.0 L ABG Base Excess -3.2 FiO2 80% Sodium 145.7 H Potassium 3.2 L Chloride 117 H Carbon Dioxide 20 L Anion Gap 9 BUN 12 Creatinine 0.42 L Est GFR ( Amer) > 60 Est GFR (Non-Af Amer) > 60 Glucose 64 L Calcium 7.7 L Phosphorus 2.6 Magnesium 2.1 08/24/17 08/25/17 06:30 05:20 Troponin I < 0.012 NT-Pro-B Natriuret Pep 795 Impressions: KUB X-Ray 08/29/17 00:00 IMPRESSION: NG tube with its tip in the left upper quadrant presumably in the stomach. Chest X-Ray 09/07/17 06:00 IMPRESSION: 1. No significant interval change. Assessment & Plan - Diagnosis (1) Acute respiratory failure with hypoxia Is this a current diagnosis for this admission?: Yes Plan: unable to sustain a reduction in peep or FIO2 (2) INÉS (obstructive sleep apnea) Is this a current diagnosis for this admission?: Yes Plan: after extubation NIPPV (3) Acute and chronic respiratory failure with hypercapnia Is this a current diagnosis for this admission?: Yes (4) GERD (gastroesophageal reflux disease) Qualifiers: Esophagitis presence: without esophagitis Qualified Code(s): K21.9 - Gastro -esophageal reflux disease without esophagitis Is this a current diagnosis for this admission?: Yes Plan: ppi (5) Opiate dependence, continuous Is this a current diagnosis for this admission?: Yes Plan: home meds (6) CHF (congestive heart failure) Qualifiers: Congestive heart failure type: unspecified congestive heart failure type Congestive heart failure chronicity: chronic Is this a current diagnosis for this admission?: Yes Plan: unchanged (7) Pulmonary hypertension Is this a current diagnosis for this admission?: Yes (8) Tobacco dependency Is this a current diagnosis for this admission?: Yes Plan: transdermal nicotine - Time Total Critical Time (Minutes): 45
--- NOTE | 2017-09-08 17:02 | PDOC PROGRESS REPORT ---
Subjective Progress Note for:: 09/08/17 Subjective:: intubated Reason For Visit: COPD EXACERBATION,PNEUMONIA,TOBACCO DEP Physical Exam Vital Signs: Temp Pulse Resp BP Pulse Ox 97.7 F 65 20 117/46 L 95 09/08/17 10:00 09/08/17 10:00 09/08/17 10:00 09/08/17 10:00 09/08/17 10:00 Intake & Output 09/07/17 09/08/17 09/09/17 06:59 06:59 06:59 Intake Total 2794 3547 Output Total 2235 53805 160 Balance 559 -47441 -160 Weight 84.7 kg 87.8 kg General appearance: PRESENT: no acute distress, disheveled. ABSENT: cooperative , mild distress, morbidly obese, severe distress Head exam: PRESENT: atraumatic, normocephalic Eye exam: PRESENT: conjunctiva pale. ABSENT: conjunctival injection, conjunctiva pink, nystagmus, periorbital swelling, scleral icterus Mouth exam: PRESENT: dry mucosa, neck supple, tongue midline, other - ET tube. ABSENT: laceration, moist Neck exam: ABSENT: carotid bruit, JVD, lymphadenopathy, thyromegaly, tracheal deviation, tracheostomy Respiratory exam: PRESENT: decreased breath sounds, prolonged expiratory phas, rales, rhonchi, symmetrical, unlabored, wheezes. ABSENT: accessory muscle use, chest wall tenderness, clear to auscultation garrison, crackles, retraction, stridor , tachypnea Cardiovascular exam: PRESENT: RRR, +S1, +S2 GI/Abdominal exam: PRESENT: diminished bowel sounds, soft Gentrourinary exam: PRESENT: indwelling catheter Extremities exam: ABSENT: clubbing, joint swelling Musculoskeletal exam: ABSENT: deformity, dislocation, full ROM Skin exam: PRESENT: dry, warm Results Laboratory Results: 09/08/17 05:45 09/08/17 05:35 09/08/17 09/08/17 09/08/17 05:35 05:35 05:45 WBC 12.2 H RBC 4.18 Hgb 10.8 L Hct 33.3 L MCV 80 MCH 25.8 L MCHC 32.3 RDW 18.0 H Plt Count 139 L Seg Neutrophils % Not Reportable Lymphocytes % Not Reportable Monocytes % Not Reportable Eosinophils % Not Reportable Basophils % Not Reportable Absolute Neutrophils Not Reportable Absolute Lymphocytes Not Reportable Absolute Monocytes Not Reportable Absolute Eosinophils Not Reportable Absolute Basophils Not Reportable Carbonic Acid 0.78 L HCO3/H2CO3 Ratio 22:1 ABG pH 7.46 H ABG pCO2 25.8 L ABG pO2 70.0 L ABG HCO3 17.8 L ABG O2 Saturation 95.2 ABG Base Excess -4.8 FiO2 80% Sodium 143.5 Potassium 3.1 L Chloride 116 H Carbon Dioxide 18 L Anion Gap 10 BUN 12 Creatinine 0.36 L Est GFR ( Amer) > 60 Est GFR (Non-Af Amer) > 60 Glucose 121 H Calcium 7.8 L Phosphorus 2.7 Magnesium 2.2 Total Bilirubin 0.4 AST 15 ALT 40 Alkaline Phosphatase 36 L Total Protein 4.1 L Albumin 2.2 L Triglycerides 75 08/24/17 08/25/17 06:30 05:20 Troponin I < 0.012 NT-Pro-B Natriuret Pep 795 Impressions: KUB X-Ray 08/29/17 00:00 IMPRESSION: NG tube with its tip in the left upper quadrant presumably in the stomach. Chest X-Ray 09/08/17 06:00 IMPRESSION: 1. No significant interval change. Assessment & Plan - Diagnosis (1) Acute respiratory failure with hypoxia Is this a current diagnosis for this admission?: Yes Plan: d 12 intubation needs trach and PEG (2) INÉS (obstructive sleep apnea) Is this a current diagnosis for this admission?: Yes Plan: after extubation NIPPV (3) Acute and chronic respiratory failure with hypercapnia Is this a current diagnosis for this admission?: Yes (4) GERD (gastroesophageal reflux disease) Qualifiers: Esophagitis presence: without esophagitis Qualified Code(s): K21.9 - Gastro -esophageal reflux disease without esophagitis Is this a current diagnosis for this admission?: Yes Plan: ppi (5) Opiate dependence, continuous Is this a current diagnosis for this admission?: Yes Plan: minimal support (6) CHF (congestive heart failure) Qualifiers: Congestive heart failure type: unspecified congestive heart failure type Congestive heart failure chronicity: chronic Is this a current diagnosis for this admission?: Yes Plan: unchanged (7) Pulmonary hypertension Is this a current diagnosis for this admission?: Yes (8) Tobacco dependency Is this a current diagnosis for this admission?: Yes Plan: transdermal nicotine - Time Total Critical Time (Minutes): 50
[2017-09-08] MEDS: METHYLPREDNISOLONE INJ 40 MG/1 ML SDV IV SCH (22:25)
[2017-09-08] MEDS: ATORVASTATIN CALCIUM 40 MG TABLET NG SCH (22:26)
[2017-09-09] MEDS: IPRATROPIUM/ALBUTEROL 0.5-2.5 MG/3 ML AMPUL NEB SCH ×4 (01:44→20:15)
[2017-09-09] MEDS: LACTULOSE SYRUP 20 GM/30 ML UDCUP PO SCH ×3 (05:41→21:25)
[2017-09-09] MEDS: PREGABALIN 50 MG CAPSULE NG SCH ×3 (05:41→21:26)
[2017-09-09] MEDS: PROPOFOL 100 ML IV PRN ×6 (05:42→21:26)
[2017-09-09 06:27] LABS: ARTERIAL BLOOD BASE EXCESS -5.3 mmol/L; ARTERIAL BLOOD H2CO3 0.76 mmol/L (1.05-1.35); ARTERIAL BLOOD HCO3 17.1 mmol/L (20-26); ARTERIAL BLOOD O2 SATURATION 92.4 % (94-98); ARTERIAL BLOOD PCO2 25.4 mmHg (35-45); ARTERIAL BLOOD PH 7.45 (7.35-7.45); ARTERIAL BLOOD PO2 59.6 mmHg (80-100); ARTERIAL BLOOD TOTAL CO2 17.9 mmol/L (21-25)
[2017-09-09 06:30] LABS: ABSOLUTE LYMPHOCYTES (AUTO) 1.4 10^3/uL (0.5-4.7); ABSOLUTE MONOCYTES (AUTO) 0.6 10^3/uL (0.1-1.4); ABSOLUTE NEUT (AUTO) 8.8 10^3/uL (1.7-8.2); EOSINOPHILS % (AUTO) 0.1 % (0-6); HEMATOCRIT 34.7 % (36.0-47.0); HEMOGLOBIN 11.3 g/dL (12.0-15.5); LYMPHOCYTES % (AUTO) 12.7 % (13-45); MEAN CORPUSCULAR HEMOGLOBIN 26.3 pg (27.0-33.4); MEAN CORPUSCULAR HGB CONC 32.7 g/dL (32.0-36.0); MEAN CORPUSCULAR VOLUME 81 fl (80-97); MONOCYTES % (AUTO) 5.6 % (3-13); PLATELET COUNT 164 10^3/uL (150-450); RED BLOOD COUNT 4.31 10^6/uL (3.72-5.28); RED CELL DISTRIBUTION WIDTH 18.3 % (11.5-14.0); SEGMENTED NEUTROPHILS % (AUTO) 81.6 % (42-78); TOTAL CELLS COUNTED % (AUTO) 100 %; WHITE BLOOD COUNT 10.8 10^3/uL (4.0-10.5)
[2017-09-09 06:32] LABS: ARTERIAL BLOOD FIO2 50%
[2017-09-09 07:01] LABS: ANION GAP 10 (5-19); BLOOD UREA NITROGEN 12 mg/dL (7-20); CALCIUM 8.1 mg/dL (8.4-10.2); CARBON DIOXIDE 18 mmol/L (22-30); CHLORIDE 117 mmol/L (98-107); GLUCOSE 69 mg/dL (75-110); POTASSIUM 3.1 mmol/L (3.6-5.0); SODIUM 144.7 mmol/L (137-145)
--- NOTE | 2017-09-09 07:10 | RADIOLOGY REPORT (SQ) ---
EXAM DESCRIPTION: CHEST SINGLE VIEW CLINICAL HISTORY: resp failure COMPARISON: 09/08/2017 FINDINGS: Single frontal view of the chest. Endotracheal tube with tip 4 cm above the vianney. Right-sided dual-lumen Mediport. NG tube with tip below the diaphragm. Cardiomegaly. Prior median sternotomy. Atherosclerotic calcification aortic arch. Bibasilar opacities and small bilateral pleural effusions. No pneumothorax. No new osseous abnormalities. Upper abdominal soft tissues are unremarkable. IMPRESSION: 1. No significant interval change.
[2017-09-09] MEDS ORDERED: LEVALBUTEROL HCL NEB 1.25 MG/3 ML AMPUL NEB PRN (08:16)
[2017-09-09] MEDS: POTASSIUM CHLORIDE 20 MEQ/15 ML UDCUP PO SCH (08:34)
[2017-09-09] MEDS: MIDAZOLAM 2 MG/2 ML INJ IV PRN (08:34)
[2017-09-09] MEDS: BUDESONIDE NEB 0.5 MG/2 ML AMPUL NEB SCH ×2 (08:40→20:15)
[2017-09-09] MEDS: METOPROLOL TARTRATE 25 MG TABLET NG SCH ×2 (09:07→21:31)
[2017-09-09] MEDS: ENOXAPARIN SODIUM INJ 40 MG/0.4 ML DISP.SYRIN SUBCUT SCH (09:14)
[2017-09-09] MEDS: ASPIRIN 81 MG TABLET, CHEWABLE NG SCH (09:14)
[2017-09-09] MEDS: ASCORBIC ACID 500 MG TABLET NG SCH ×2 (09:14→18:49)
[2017-09-09] MEDS: METOCLOPRAMIDE HCL INJ/PF 10 MG/2 ML SDV IV SCH ×3 (09:14→18:49)
[2017-09-09] MEDS: METHYLPREDNISOLONE INJ 40 MG/1 ML SDV IV SCH ×2 (09:14→21:25)
[2017-09-09] MEDS: LACTOBACILLUS ACIDOPHILUS 250 MG TAB NG SCH ×2 (09:14→18:48)
[2017-09-09] MEDS: GUAIFENESIN SYRP 200 MG/10 ML UDC NG SCH ×2 (09:14→18:49)
[2017-09-09] MEDS ORDERED: ONDANSETRON HCL INJ/PF 4 MG/2 ML SDV ONE (10:31)
[2017-09-09] MEDS ORDERED: ROCURONIUM BROMIDE INJ 50 MG/5 ML VIAL IV ONE (10:31)
[2017-09-09] MEDS ORDERED: LIDOCAINE 2% INJ-PF (20 MG/ML) 2 ML AMPUL ONE (10:31)
[2017-09-09] MEDS ORDERED: GLYCOPYRROLATE INJ 0.4 MG/2 ML VIAL ONE (10:31)
--- NOTE | 2017-09-09 10:46 | PDOC PROGRESS REPORT ---
Subjective Progress Note for:: 09/09/17 Subjective:: intubated Reason For Visit: COPD EXACERBATION,PNEUMONIA,TOBACCO DEP Physical Exam Vital Signs: Temp Pulse Resp BP Pulse Ox 99.0 F 62 20 112/41 L 97 09/09/17 07:53 09/09/17 08:33 09/09/17 08:33 09/09/17 07:53 09/09/17 08:33 Intake & Output 09/08/17 09/09/17 09/10/17 06:59 06:59 06:59 Intake Total 3547 2924 Output Total 57651 1055 125 Balance -41194 1869 -125 Weight 87.8 kg 88.2 kg General appearance: PRESENT: no acute distress, disheveled, obese. ABSENT: cooperative, mild distress, morbidly obese, severe distress Head exam: PRESENT: atraumatic, normocephalic Eye exam: PRESENT: conjunctiva pale. ABSENT: conjunctival injection, conjunctiva pink, nystagmus, periorbital swelling, scleral icterus Mouth exam: PRESENT: dry mucosa, neck supple, tongue midline, other - et tube. ABSENT: laceration, moist Teeth exam: PRESENT: poor dentation Neck exam: ABSENT: carotid bruit, JVD, lymphadenopathy, thyromegaly, tracheal deviation, tracheostomy Respiratory exam: PRESENT: decreased breath sounds, prolonged expiratory phas, rales, rhonchi, symmetrical, unlabored, wheezes. ABSENT: accessory muscle use, chest wall tenderness, clear to auscultation garrison, crackles, retraction, stridor , tachypnea Cardiovascular exam: PRESENT: RRR, +S1, +S2 Pulses: PRESENT: normal radial pulses GI/Abdominal exam: PRESENT: diminished bowel sounds, soft Gentrourinary exam: PRESENT: indwelling catheter Extremities exam: ABSENT: clubbing, joint swelling Musculoskeletal exam: ABSENT: ambulatory, deformity, dislocation Skin exam: PRESENT: dry, warm Results Laboratory Results: 09/09/17 06:05 09/09/17 06:05 09/09/17 09/09/17 09/09/17 06:05 06:05 06:05 WBC 10.8 H RBC 4.31 Hgb 11.3 L Hct 34.7 L MCV 81 MCH 26.3 L MCHC 32.7 RDW 18.3 H Plt Count 164 Seg Neutrophils % 81.6 H Lymphocytes % 12.7 L Monocytes % 5.6 Eosinophils % 0.1 Basophils % 0.0 Absolute Neutrophils 8.8 H Absolute Lymphocytes 1.4 Absolute Monocytes 0.6 Absolute Eosinophils 0.0 Absolute Basophils 0.0 Carbonic Acid 0.76 L HCO3/H2CO3 Ratio 22:1 ABG pH 7.45 ABG pCO2 25.4 L ABG pO2 59.6 L ABG HCO3 17.1 L ABG O2 Saturation 92.4 L ABG Base Excess -5.3 FiO2 50% Sodium 144.7 Potassium 3.1 L Chloride 117 H Carbon Dioxide 18 L Anion Gap 10 BUN 12 Creatinine 0.39 L Est GFR ( Amer) > 60 Est GFR (Non-Af Amer) > 60 Glucose 69 L Calcium 8.1 L 08/24/17 08/25/17 06:30 05:20 Troponin I < 0.012 NT-Pro-B Natriuret Pep 795 Impressions: KUB X-Ray 08/29/17 00:00 IMPRESSION: NG tube with its tip in the left upper quadrant presumably in the stomach. Chest X-Ray 09/09/17 06:00 IMPRESSION: 1. No significant interval change. Assessment & Plan - Diagnosis (1) Acute respiratory failure with hypoxia Is this a current diagnosis for this admission?: Yes Plan: d 12 intubation needs trach and PEG min volume same (2) INÉS (obstructive sleep apnea) Is this a current diagnosis for this admission?: Yes (3) Acute and chronic respiratory failure with hypercapnia Is this a current diagnosis for this admission?: Yes Plan: try to sustain baseline hypercapnia (4) GERD (gastroesophageal reflux disease) Qualifiers: Esophagitis presence: without esophagitis Qualified Code(s): K21.9 - Gastro -esophageal reflux disease without esophagitis Is this a current diagnosis for this admission?: Yes Plan: ppi (5) Opiate dependence, continuous Is this a current diagnosis for this admission?: Yes Plan: minimal support (6) CHF (congestive heart failure) Qualifiers: Congestive heart failure type: unspecified congestive heart failure type Congestive heart failure chronicity: chronic Is this a current diagnosis for this admission?: Yes Plan: unchanged (7) Pulmonary hypertension Is this a current diagnosis for this admission?: Yes (8) Tobacco dependency Is this a current diagnosis for this admission?: Yes Plan: transdermal nicotine - Time Total Critical Time (Minutes): 40
[2017-09-09] MEDS ORDERED: FENTANYL CITRATE INJ/PF 100 MCG/2 ML AMPUL ONE (11:30)
[2017-09-09] MEDS ORDERED: MIDAZOLAM 2 MG/2 ML INJ ONE (11:30)
[2017-09-09] MEDS ORDERED: PROPOFOL INJ 200 MG/20 ML VIAL IV ONE (11:30)
[2017-09-09] MEDS ORDERED: LIDOCAINE 2%/EPINEPHRINE INJ 20 ML VIAL ONE (11:33)
[2017-09-09] MEDS ORDERED: LIDOCAINE 2% JELLY 30 ML TUBE ONE (11:33)
--- NOTE | 2017-09-09 14:46 | RADIOLOGY REPORT (SQ) ---
EXAM DESCRIPTION: CHEST SINGLE VIEW COMPLETED DATE/TIME: 09/09/2017 2:30 pm REASON FOR STUDY: Post tracheostomy tube placement COMPARISON: 09/09/2017 EXAM PARAMETERS: NUMBER OF VIEWS: One view. TECHNIQUE: Single frontal radiographic view of the chest acquired. RADIATION DOSE: NA LIMITATIONS: None. FINDINGS: LUNGS AND PLEURA: Stable multifocal airspace disease with bilateral pleural effusions. MEDIASTINUM AND HILAR STRUCTURES: Stable. HEART AND VASCULAR STRUCTURES: Stable. BONES: No acute findings. HARDWARE: Interval removal of endotracheal tube and nasogastric tube. Placement of tracheostomy tube . Stable position right-sided dual-lumen catheter. OTHER: No other significant finding. IMPRESSION: INTERVAL REMOVAL OF ENDOTRACHEAL TUBE AND NASOGASTRIC TUBE WITH PLACEMENT OF TRACHEOSTOM Y TUBE. OTHERWISE STABLE APPEARANCE OF THE CHEST. TECHNICAL DOCUMENTATION: JOB ID: [id number] [employer]- All Rights Reserved
--- NOTE | 2017-09-09 15:22 | PDOC PROGRESS REPORT ---
Subjective Progress Note for:: 09/09/17 Subjective:: The patient is a 72-year-old female who has severe, end-stage COPD. She has been in the hospital and intubated for approximately 2 weeks with failure to wean. Her has now decided to pursue tracheostomy with PEG. Reason For Visit: COPD EXACERBATION,PNEUMONIA,TOBACCO DEP Physical Exam Vital Signs: Temp Pulse Resp BP Pulse Ox 97.3 F 71 20 139/53 H 94 09/09/17 14:35 09/09/17 14:07 09/09/17 14:35 09/09/17 14:35 09/09/17 14:35 Intake & Output 09/08/17 09/09/17 09/10/17 06:59 06:59 06:59 Intake Total 3547 2924 Output Total 07744 1055 310 Balance -23075 1869 -310 Weight 87.8 kg 88.2 kg Additional comments: The patient was intubated this morning. She was sedated. Her exam demonstrated diminished but clear breath sounds. Clearly, the rhonchi have improved since her initial date of hospitalization. Her cardiac exam is regular without murmurs, gallops or rubs. The abdomen is noted to be soft and flat. Bowel sounds are present bilaterally. The lower extremities today are clean without pitting edema. Skin is warm, dry and intact without lesions or rashes. She continues to have periorbital bruising and some purpura on the extremities. Overall, there is no change to the skin exam. These areas have been present since admission. Results Laboratory Results: 09/09/17 06:05 09/09/17 06:05 09/09/17 09/09/17 09/09/17 06:05 06:05 06:05 WBC 10.8 H RBC 4.31 Hgb 11.3 L Hct 34.7 L MCV 81 MCH 26.3 L MCHC 32.7 RDW 18.3 H Plt Count 164 Seg Neutrophils % 81.6 H Lymphocytes % 12.7 L Monocytes % 5.6 Eosinophils % 0.1 Basophils % 0.0 Absolute Neutrophils 8.8 H Absolute Lymphocytes 1.4 Absolute Monocytes 0.6 Absolute Eosinophils 0.0 Absolute Basophils 0.0 Carbonic Acid 0.76 L HCO3/H2CO3 Ratio 22:1 ABG pH 7.45 ABG pCO2 25.4 L ABG pO2 59.6 L ABG HCO3 17.1 L ABG O2 Saturation 92.4 L ABG Base Excess -5.3 FiO2 50% Sodium 144.7 Potassium 3.1 L Chloride 117 H Carbon Dioxide 18 L Anion Gap 10 BUN 12 Creatinine 0.39 L Est GFR ( Amer) > 60 Est GFR (Non-Af Amer) > 60 Glucose 69 L Calcium 8.1 L 08/24/17 08/25/17 06:30 05:20 Troponin I < 0.012 NT-Pro-B Natriuret Pep 795 Impressions: KUB X-Ray 08/29/17 00:00 IMPRESSION: NG tube with its tip in the left upper quadrant presumably in the stomach. Chest X-Ray 09/09/17 13:09 IMPRESSION: INTERVAL REMOVAL OF ENDOTRACHEAL TUBE AND NASOGASTRIC TUBE WITH PLACEMENT OF TRACHEOSTOMY TUBE. OTHERWISE STABLE APPEARANCE OF THE CHEST. Assessment & Plan - Diagnosis (1) Acute respiratory failure with hypoxia Is this a current diagnosis for this admission?: Yes Plan: The patient's volume status may be positive secondary to increasing bilateral pleural effusions. Certainly, this could also be from critical illness with low albumin and just the patient's sedentary state. In any event if we continue to have trouble with weaning I would recommend trials of diuresis. Patient underwent placement of tracheostomy with PEG tube today. (2) COPD exacerbation Is this a current diagnosis for this admission?: Yes Plan: Continue bronchodilators, wean steroids. (3) Hypokalemia Is this a current diagnosis for this admission?: Yes Plan: Repleting orally today. Standing orders have been written. (4) Respiratory failure Qualifiers: Chronicity: acute Respiratory failure complication: hypoxia Qualified Code(s): J96.01 - Acute respiratory failure with hypoxia Plan: She underwent tracheostomy placement today continue with weaning process.. (5) Diabetes mellitus type 2, controlled Qualifiers: Diabetes mellitus complication status: without complication Diabetes mellitus watermelon harvesting supervisor insulin use: with watermelon harvesting supervisor use Qualified Code(s): E11.9 - Type 2 diabetes mellitus without complications; Z79.4 - exterminator helper (current) use of insulin; Z79.4 - exterminator helper (current) use of insulin; Z79.4 - exterminator helper ( current) use of insulin; Z79.4 - correction (current) use of insulin Is this a current diagnosis for this admission?: Yes Plan: Despite fairly aggressive doses of corticosteroids, blood sugars remain in good range. Continue sliding scale. (6) INÉS (obstructive sleep apnea) Is this a current diagnosis for this admission?: Yes Plan: This will essentially resolve with tracheostomy. (7) Opiate dependence, continuous Is this a current diagnosis for this admission?: Yes Plan: Unfortunately, the use of chronic opiates exacerbates the patient's respiratory illness. (8) UTI (urinary tract infection) Qualifiers: Urinary tract infection type: site unspecified Hematuria presence: without hematuria Qualified Code(s): N39.0 - Urinary tract infection, site not specified Plan: Urine culture grew greater than 100,000 E. coli. She was treated with rocephin. (9) Metabolic acidosis Is this a current diagnosis for this admission?: Yes Plan: The patient has a stable non-anion gap metabolic acidosis. - Time Time Spent with patient: 25-34 minutes - Inpatient Certification Medical Necessity: Risk of Complication if Not Cared For in Hospital - Patient has just undergone tracheostomy. At this point in time we can start looking for chronic weaning facilities.
[2017-09-09] MEDS: NICOTINE 14 MG/24 HR PATCH.TD24 TD SCH (15:51)
[2017-09-09] MEDS: NITROGLYCERIN 10 MG (0.4 MG/HR) PATCH.TD24 TOP SCH (15:52)
--- NOTE | 2017-09-09 15:59 | OPERATIVE REPORT E ---
Operative Report NAME: DAGO GRAFF : 1945 AGE: 72Y DATE OF SURGERY: 09/09/2017 ROOM: 610 PREOPERATIVE DIAGNOSIS: Respiratory failure. POSTOPERATIVE DIAGNOSIS: Respiratory failure. PROCEDURE: 1. Operative tracheostomy with #6 Shiley fenestrated trach. 2. Esophagogastroduodenoscopy. 3. Percutaneous endoscopic gastrostomy. SURGEON: JALEN CASTILLO M.D. ANESTHESIA: General. COMPLICATIONS: None. ESTIMATED BLOOD LOSS: Scant. DRAINS: None. TISSUE REMOVED: None. SUMMARY OF PROCEDURE: Patient brought from the ICU to the main operating room where general anesthesia was induced through the existing endotracheal tube. Patient was placed in the arm tuck position, semi recumbent, neck extended with the anterior neck exposed. The anterior neck was prepped and draped in a sterile fashion. Surgical plan and surgical time out were conducted. Skin was anesthetized with 1% plain lidocaine. A small curvilinear incision was made approximately 2 cm above the sternal notch. The subcutaneous tissue and platysma divided with electrocautery. Strap muscles divided midline. The thyroid gland was attenuated and the isthmus was divided with electrocautery. Paratracheal tissue spread open and [place] used to expose the trachea widely. A tracheal hook was placed in the trachea below the first tracheal ring, and an upside U was cut into the trachea with a 15 blade, creating a flap. The endotracheal tube was removed slowly, a 2-0 Prolene stitch was placed in the inferiorly based tracheal flap as a rescue stitch, and a #6 Shiley trach was placed into position, balloon insufflated and appropriate CO2 and oxygen exchanged. The tracheostomy tube was secured to the skin at multiple sites with 2-0 Prolene suture and strap applied accordingly. Anesthetic tubing attached, no complications. We then proceeded with PEG placement. Anterior abdominal wall was exposed, prepped and draped in sterile fashion. Dr. Castillo performed the upper endoscopy uneventfully. The adult upper endoscope was advanced through the hypopharynx, through the esophagus, through the stomach into the duodenum. There was no evidence of esophageal, gastric or duodenal pathology. Insufflation of the stomach was performed. A suitable site for placement of the PEG was chosen on the anterior abdominal wall. Skin was anesthetized with 1% plain lidocaine. Needle and Jelco threaded through the anterior abdominal wall. Wire threaded through the Jelco and wire snared with the endoscope. Endoscope, wire and snare all brought out of the patient's oropharynx, an EndoVive 24-Honduran feeding tube was placed over the wire and the PEG tube pulled up against the anterior abdominal wall. Wire removed. Bolsters and attachments applied. Repeat endoscopy revealed the feeding tube to be in good position. The markings were approximately 3 cm from the bolster at the skin level. The patient tolerated the procedure well and was taken to the ICU in stable condition. Portable upright chest x-ray showed tubes and lines in good position. DICTATING PHYSICIAN: JALEN CASTILLO M.D. [id number] PHY#: [id number] ID: [id number] JOB#: [id number] ACCT: [id number] cc:JALEN CASTILLO M.D. >
[2017-09-09] MEDS: ATORVASTATIN CALCIUM 40 MG TABLET NG SCH (21:27)
[2017-09-10] MEDS: PROPOFOL 100 ML IV PRN ×5 (01:11→22:18)
[2017-09-10] MEDS: IPRATROPIUM/ALBUTEROL 0.5-2.5 MG/3 ML AMPUL NEB SCH ×4 (02:09→19:33)
[2017-09-10 05:59] LABS: ARTERIAL BLOOD O2 SATURATION 94.7 % (94-98); ARTERIAL BLOOD PCO2 26.7 mmHg (35-45); ARTERIAL BLOOD PH 7.42 (7.35-7.45); ARTERIAL BLOOD PO2 70.1 mmHg (80-100); ARTERIAL BLOOD TOTAL CO2 17.8 mmol/L (21-25)
[2017-09-10 06:00] LABS: ARTERIAL BLOOD FIO2 45
[2017-09-10 06:02] LABS: ANION GAP 8 (5-19); BLOOD UREA NITROGEN 10 mg/dL (7-20); CALCIUM 7.9 mg/dL (8.4-10.2); CARBON DIOXIDE 19 mmol/L (22-30); CHLORIDE 119 mmol/L (98-107); GLUCOSE 99 mg/dL (75-110); MAGNESIUM 2.1 mg/dL (1.6-2.3); POTASSIUM 3.8 mmol/L (3.6-5.0); SODIUM 145.7 mmol/L (137-145)
[2017-09-10 06:08] LABS: ABSOLUTE LYMPHOCYTES (AUTO) 0.6 10^3/uL (0.5-4.7); ABSOLUTE MONOCYTES (AUTO) 0.4 10^3/uL (0.1-1.4); ABSOLUTE NEUT (AUTO) 9.6 10^3/uL (1.7-8.2); HEMOGLOBIN 11.1 g/dL (12.0-15.5); LYMPHOCYTES % (AUTO) 5.7 % (13-45); MEAN CORPUSCULAR HEMOGLOBIN 26.1 pg (27.0-33.4); MEAN CORPUSCULAR HGB CONC 32.5 g/dL (32.0-36.0); MEAN CORPUSCULAR VOLUME 80 fl (80-97); MONOCYTES % (AUTO) 3.8 % (3-13); PLATELET COUNT 160 10^3/uL (150-450); RED BLOOD COUNT 4.24 10^6/uL (3.72-5.28); RED CELL DISTRIBUTION WIDTH 18.6 % (11.5-14.0); SEGMENTED NEUTROPHILS % (AUTO) 90.5 % (42-78); TOTAL CELLS COUNTED % (AUTO) 100 %; WHITE BLOOD COUNT 10.6 10^3/uL (4.0-10.5)
[2017-09-10] MEDS: LACTULOSE SYRUP 20 GM/30 ML UDCUP PO SCH ×2 (06:09→12:10)
[2017-09-10] MEDS: PREGABALIN 50 MG CAPSULE NG SCH ×3 (06:09→22:17)
[2017-09-10] MEDS: BUDESONIDE NEB 0.5 MG/2 ML AMPUL NEB SCH ×2 (08:39→19:33)
[2017-09-10] MEDS: NICOTINE 14 MG/24 HR PATCH.TD24 TD SCH (12:03)
[2017-09-10] MEDS: OXYCODONE HCL IR 5 MG TABLET NG PRN ×2 (12:04→17:24)
[2017-09-10] MEDS: LACTOBACILLUS ACIDOPHILUS 250 MG TAB NG SCH ×2 (12:04→17:22)
[2017-09-10] MEDS: NITROGLYCERIN 10 MG (0.4 MG/HR) PATCH.TD24 TOP SCH (12:04)
[2017-09-10] MEDS: ASPIRIN 81 MG TABLET, CHEWABLE NG SCH (12:05)
[2017-09-10] MEDS: OXYCODONE-ACETAMINOPHEN 5-325 MG TABLET NG PRN ×2 (12:05→17:23)
[2017-09-10] MEDS: METOPROLOL TARTRATE 25 MG TABLET NG SCH ×2 (12:05→22:18)
[2017-09-10] MEDS: ASCORBIC ACID 500 MG TABLET NG SCH ×2 (12:06→17:23)
[2017-09-10] MEDS: POTASSIUM CHLORIDE 20 MEQ/15 ML UDCUP PO SCH (12:06)
[2017-09-10] MEDS: MIDAZOLAM 2 MG/2 ML INJ IV PRN (12:06)
[2017-09-10] MEDS: GUAIFENESIN SYRP 200 MG/10 ML UDC NG SCH ×2 (12:06→17:24)
[2017-09-10] MEDS: ENOXAPARIN SODIUM INJ 40 MG/0.4 ML DISP.SYRIN SUBCUT SCH (12:07)
[2017-09-10] MEDS: METOCLOPRAMIDE HCL INJ/PF 10 MG/2 ML SDV IV SCH ×3 (12:08→17:25)
[2017-09-10] MEDS: METHYLPREDNISOLONE INJ 40 MG/1 ML SDV IV SCH ×2 (12:09→22:16)
--- NOTE | 2017-09-10 16:03 | PDOC PROGRESS REPORT ---
Subjective Progress Note for:: 09/10/17 Subjective:: The patient is a 72-year-old female who has severe, end-stage COPD. She has been in the hospital and intubated for approximately 2 weeks with failure to wean. Her has now decided to pursue tracheostomy with PEG. These were performed yesterday, 09/09/2017. Reason For Visit: COPD EXACERBATION,PNEUMONIA,TOBACCO DEP Physical Exam Vital Signs: Temp Pulse Resp BP Pulse Ox 98.2 F 67 20 110/48 L 94 09/10/17 14:00 09/10/17 14:50 09/10/17 14:50 09/10/17 14:00 09/10/17 14:50 Intake & Output 09/09/17 09/10/17 09/11/17 06:59 06:59 06:59 Intake Total 2924 3333 Output Total 1055 1440 735 Balance 1869 1893 -735 Weight 88.2 kg 90 kg Additional comments: The patient is sedated. Her lungs remain coarse. I did not appreciate any wheezing today. Her cardiac exam is somewhat distant but regular. I do not appreciate any murmurs, gallops or rubs. The abdomen is soft and flat. The lower extremities show 1+ edema which is symmetrical. In general, I would say that she has 1+ anasarca. Again, she has purpura and pigmentation increases in the periorbital areas. This is unchanged. The trach site shows slight oozing of blood. The PEG site is clean dry and intact. Results Laboratory Results: 09/10/17 05:25 09/10/17 05:25 09/10/17 09/10/17 09/10/17 05:25 05:25 05:25 WBC RBC Hgb Hct MCV MCH MCHC RDW Plt Count Seg Neutrophils % Lymphocytes % Monocytes % Eosinophils % Basophils % Absolute Neutrophils Absolute Lymphocytes Absolute Monocytes Absolute Eosinophils Absolute Basophils Carbonic Acid 0.80 L HCO3/H2CO3 Ratio 21:1 ABG pH 7.42 ABG pCO2 26.7 L ABG pO2 70.1 L ABG HCO3 17.0 L ABG O2 Saturation 94.7 ABG Base Excess -6.0 FiO2 45 Sodium 145.7 H Potassium 3.8 Chloride 119 H Carbon Dioxide 19 L Anion Gap 8 BUN 10 Creatinine 0.33 L Est GFR ( Amer) > 60 Est GFR (Non-Af Amer) > 60 Glucose 99 Calcium 7.9 L Phosphorus 3.0 Magnesium 2.1 Ammonia < 8.7 L 09/10/17 05:25 WBC 10.6 H RBC 4.24 Hgb 11.1 L Hct 34.0 L MCV 80 MCH 26.1 L MCHC 32.5 RDW 18.6 H Plt Count 160 Seg Neutrophils % 90.5 H Lymphocytes % 5.7 L Monocytes % 3.8 Eosinophils % 0.0 Basophils % 0.0 Absolute Neutrophils 9.6 H Absolute Lymphocytes 0.6 Absolute Monocytes 0.4 Absolute Eosinophils 0.0 Absolute Basophils 0.0 Carbonic Acid HCO3/H2CO3 Ratio ABG pH ABG pCO2 ABG pO2 ABG HCO3 ABG O2 Saturation ABG Base Excess FiO2 Sodium Potassium Chloride Carbon Dioxide Anion Gap BUN Creatinine Est GFR ( Amer) Est GFR (Non-Af Amer) Glucose Calcium Phosphorus Magnesium Ammonia 08/24/17 08/25/17 06:30 05:20 Troponin I < 0.012 NT-Pro-B Natriuret Pep 795 Impressions: KUB X-Ray 08/29/17 00:00 IMPRESSION: NG tube with its tip in the left upper quadrant presumably in the stomach. Chest X-Ray 09/09/17 13:09 IMPRESSION: INTERVAL REMOVAL OF ENDOTRACHEAL TUBE AND NASOGASTRIC TUBE WITH PLACEMENT OF TRACHEOSTOMY TUBE. OTHERWISE STABLE APPEARANCE OF THE CHEST. Assessment & Plan - Diagnosis (1) Acute respiratory failure with hypoxia Is this a current diagnosis for this admission?: Yes Plan: The patient's volume status may be positive secondary to increasing bilateral pleural effusions. Certainly, this could also be from critical illness with low albumin and just the patient's sedentary state. This may be the case since the patient's sodium is actually elevated. In any event if we continue to have trouble with weaning I would recommend trials of diuresis. Patient underwent placement of tracheostomy with PEG tube 09/09/17. (2) COPD exacerbation Is this a current diagnosis for this admission?: Yes Plan: Continue bronchodilators, wean steroids. (3) Hypokalemia Is this a current diagnosis for this admission?: Yes Plan: Repleting orally today. Standing orders have been written. (4) Respiratory failure Qualifiers: Chronicity: acute Respiratory failure complication: hypoxia Qualified Code(s): J96.01 - Acute respiratory failure with hypoxia Plan: She underwent tracheostomy placement; continue with weaning process.. (5) Diabetes mellitus type 2, controlled Qualifiers: Diabetes mellitus complication status: without complication Diabetes mellitus termite helper insulin use: with termite helper use Qualified Code(s): E11.9 - Type 2 diabetes mellitus without complications; Z79.4 - correction (current) use of insulin; Z79.4 - correction (current) use of insulin; Z79.4 - correction ( current) use of insulin; Z79.4 - long term care phlebotomist (current) use of insulin Is this a current diagnosis for this admission?: Yes Plan: Despite fairly aggressive doses of corticosteroids, blood sugars remain in good range. Continue sliding scale. (6) INÉS (obstructive sleep apnea) Is this a current diagnosis for this admission?: Yes Plan: This will essentially resolve with tracheostomy. (7) Opiate dependence, continuous Is this a current diagnosis for this admission?: Yes Plan: Unfortunately, the use of chronic opiates exacerbates the patient's respiratory illness. (8) UTI (urinary tract infection) Qualifiers: Urinary tract infection type: site unspecified Hematuria presence: without hematuria Qualified Code(s): N39.0 - Urinary tract infection, site not specified Plan: Urine culture grew greater than 100,000 E. coli. She was treated with rocephin. (9) Metabolic acidosis Is this a current diagnosis for this admission?: Yes Plan: The patient has a stable non-anion gap metabolic acidosis. - Time Time Spent with patient: 25-34 minutes - Inpatient Certification Medical Necessity: Significant Comorbidiites Make Outpatient Treatment Too Risky , Need Close Monitoring Due to Risk of Patient Decompensation, Need for Neurological Checks - The patient recently had a tracheostomy. At this point in time we can begin the process of looking for a long-term weaning facility. However, we need to watch the patient closely over the next several days to ensure that there are no complications with bleeding, etc. at the tracheostomy site.
--- NOTE | 2017-09-10 16:07 | PDOC PROGRESS REPORT ---
Subjective Progress Note for:: 09/10/17 Subjective:: intubated Reason For Visit: COPD EXACERBATION,PNEUMONIA,TOBACCO DEP Physical Exam Vital Signs: Temp Pulse Resp BP Pulse Ox 98.4 F 68 20 153/50 H 96 09/10/17 08:00 09/10/17 08:00 09/10/17 08:00 09/10/17 08:00 09/10/17 08:00 Intake & Output 09/09/17 09/10/17 09/11/17 06:59 06:59 06:59 Intake Total 2924 3333 Output Total 1055 1440 100 Balance 1869 1893 -100 Weight 88.2 kg 90 kg General appearance: PRESENT: no acute distress, disheveled. ABSENT: cooperative , mild distress, morbidly obese, severe distress Head exam: PRESENT: atraumatic, normocephalic Eye exam: PRESENT: conjunctiva pale. ABSENT: conjunctival injection, conjunctiva pink, EOMI, nystagmus, periorbital swelling, scleral icterus Mouth exam: PRESENT: dry mucosa, neck supple, tongue midline. ABSENT: laceration, moist Neck exam: PRESENT: tracheostomy. ABSENT: tracheal deviation Respiratory exam: PRESENT: crackles, decreased breath sounds, prolonged expiratory phas, rhonchi, symmetrical, unlabored. ABSENT: accessory muscle use , chest wall tenderness, clear to auscultation garrison, rales, retraction, stridor, tachypnea Cardiovascular exam: PRESENT: RRR, +S1, +S2 Pulses: PRESENT: normal radial pulses GI/Abdominal exam: PRESENT: diminished bowel sounds, soft Gentrourinary exam: PRESENT: indwelling catheter Extremities exam: ABSENT: clubbing, full ROM, joint swelling Musculoskeletal exam: ABSENT: ambulatory, deformity, dislocation, full ROM Neurological exam: ABSENT: alert, awake Skin exam: PRESENT: dry, warm Results Laboratory Results: 09/10/17 05:25 09/10/17 05:25 09/10/17 09/10/17 09/10/17 05:25 05:25 05:25 WBC RBC Hgb Hct MCV MCH MCHC RDW Plt Count Seg Neutrophils % Lymphocytes % Monocytes % Eosinophils % Basophils % Absolute Neutrophils Absolute Lymphocytes Absolute Monocytes Absolute Eosinophils Absolute Basophils Carbonic Acid 0.80 L HCO3/H2CO3 Ratio 21:1 ABG pH 7.42 ABG pCO2 26.7 L ABG pO2 70.1 L ABG HCO3 17.0 L ABG O2 Saturation 94.7 ABG Base Excess -6.0 FiO2 45 Sodium 145.7 H Potassium 3.8 Chloride 119 H Carbon Dioxide 19 L Anion Gap 8 BUN 10 Creatinine 0.33 L Est GFR ( Amer) > 60 Est GFR (Non-Af Amer) > 60 Glucose 99 Calcium 7.9 L Phosphorus 3.0 Magnesium 2.1 Ammonia < 8.7 L 09/10/17 05:25 WBC 10.6 H RBC 4.24 Hgb 11.1 L Hct 34.0 L MCV 80 MCH 26.1 L MCHC 32.5 RDW 18.6 H Plt Count 160 Seg Neutrophils % 90.5 H Lymphocytes % 5.7 L Monocytes % 3.8 Eosinophils % 0.0 Basophils % 0.0 Absolute Neutrophils 9.6 H Absolute Lymphocytes 0.6 Absolute Monocytes 0.4 Absolute Eosinophils 0.0 Absolute Basophils 0.0 Carbonic Acid HCO3/H2CO3 Ratio ABG pH ABG pCO2 ABG pO2 ABG HCO3 ABG O2 Saturation ABG Base Excess FiO2 Sodium Potassium Chloride Carbon Dioxide Anion Gap BUN Creatinine Est GFR ( Amer) Est GFR (Non-Af Amer) Glucose Calcium Phosphorus Magnesium Ammonia 08/24/17 08/25/17 06:30 05:20 Troponin I < 0.012 NT-Pro-B Natriuret Pep 795 Impressions: KUB X-Ray 08/29/17 00:00 IMPRESSION: NG tube with its tip in the left upper quadrant presumably in the stomach. Chest X-Ray 09/09/17 13:09 IMPRESSION: INTERVAL REMOVAL OF ENDOTRACHEAL TUBE AND NASOGASTRIC TUBE WITH PLACEMENT OF TRACHEOSTOMY TUBE. OTHERWISE STABLE APPEARANCE OF THE CHEST. Assessment & Plan - Diagnosis (1) Acute respiratory failure with hypoxia Is this a current diagnosis for this admission?: Yes Plan: d 12 intubation needs trach and PEG min volume same (2) INÉS (obstructive sleep apnea) Is this a current diagnosis for this admission?: Yes Plan: after extubation NIPPV (3) Acute and chronic respiratory failure with hypercapnia Is this a current diagnosis for this admission?: Yes Plan: try to sustain baseline hypercapnia (4) GERD (gastroesophageal reflux disease) Qualifiers: Esophagitis presence: without esophagitis Qualified Code(s): K21.9 - Gastro -esophageal reflux disease without esophagitis Is this a current diagnosis for this admission?: Yes Plan: ppi (5) Opiate dependence, continuous Is this a current diagnosis for this admission?: Yes Plan: minimal support (6) CHF (congestive heart failure) Qualifiers: Congestive heart failure type: unspecified congestive heart failure type Congestive heart failure chronicity: chronic Is this a current diagnosis for this admission?: Yes Plan: unchanged (7) Pulmonary hypertension Is this a current diagnosis for this admission?: Yes Plan: INÉS chronic hypoxia (8) Tobacco dependency Is this a current diagnosis for this admission?: Yes Plan: transdermal nicotine - Time Total Critical Time (Minutes): 40
[2017-09-10] MEDS ORDERED: LACTULOSE SYRUP 20 GM/30 ML UDCUP NG SCH (22:00)
[2017-09-10] MEDS: ATORVASTATIN CALCIUM 40 MG TABLET NG SCH (22:16)
[2017-09-11] MEDS: IPRATROPIUM/ALBUTEROL 0.5-2.5 MG/3 ML AMPUL NEB SCH ×4 (02:04→20:47)
[2017-09-11] MEDS: PROPOFOL 100 ML IV PRN ×5 (03:36→21:31)
[2017-09-11 05:43] LABS: ABSOLUTE LYMPHOCYTES (AUTO) 0.6 10^3/uL (0.5-4.7); ABSOLUTE MONOCYTES (AUTO) 0.2 10^3/uL (0.1-1.4); ABSOLUTE NEUT (AUTO) 9.7 10^3/uL (1.7-8.2); BASOPHILS % (AUTO) 0.2 % (0-2); HEMOGLOBIN 11.4 g/dL (12.0-15.5); LYMPHOCYTES % (AUTO) 5.8 % (13-45); MEAN CORPUSCULAR HEMOGLOBIN 26.1 pg (27.0-33.4); MEAN CORPUSCULAR HGB CONC 32.5 g/dL (32.0-36.0); MEAN CORPUSCULAR VOLUME 80 fl (80-97); MONOCYTES % (AUTO) 2.4 % (3-13); PLATELET COUNT 157 10^3/uL (150-450); RED BLOOD COUNT 4.35 10^6/uL (3.72-5.28); RED CELL DISTRIBUTION WIDTH 18.7 % (11.5-14.0); SEGMENTED NEUTROPHILS % (AUTO) 91.6 % (42-78); TOTAL CELLS COUNTED % (AUTO) 100 %; WHITE BLOOD COUNT 10.6 10^3/uL (4.0-10.5)
[2017-09-11 05:44] LABS: ARTERIAL BLOOD BASE EXCESS -4.6 mmol/L; ARTERIAL BLOOD FIO2 45%; ARTERIAL BLOOD H2CO3 0.85 mmol/L (1.05-1.35); ARTERIAL BLOOD HCO3 18.4 mmol/L (20-26); ARTERIAL BLOOD O2 SATURATION 94.5 % (94-98); ARTERIAL BLOOD PCO2 28.1 mmHg (35-45); ARTERIAL BLOOD PH 7.43 (7.35-7.45); ARTERIAL BLOOD PO2 68.2 mmHg (80-100); ARTERIAL BLOOD TOTAL CO2 19.2 mmol/L (21-25)
[2017-09-11 06:00] LABS: BLOOD UREA NITROGEN 9 mg/dL (7-20); CALCIUM 8.5 mg/dL (8.4-10.2); GLUCOSE 101 mg/dL (75-110); MAGNESIUM 2.1 mg/dL (1.6-2.3); POTASSIUM 4.1 mmol/L (3.6-5.0); TRIGLYCERIDES 117 mg/dL (<150)
[2017-09-11 06:23] LABS: ANION GAP 7 (5-19); CARBON DIOXIDE 19 mmol/L (22-30); CHLORIDE 117 mmol/L (98-107)
[2017-09-11] MEDS: PREGABALIN 50 MG CAPSULE NG SCH ×3 (06:33→21:31)
--- NOTE | 2017-09-11 07:50 | RADIOLOGY REPORT (SQ) ---
EXAM DESCRIPTION: CHEST SINGLE VIEW COMPLETED DATE/TIME: 09/11/2017 6:56 am REASON FOR STUDY: resp failure COMPARISON: CT angio chest 11/27/2016 Chest films 09/08/2017, 09/09/2017 EXAM PARAMETERS: NUMBER OF VIEWS: One view. TECHNIQUE: Single frontal radiographic view of the chest acquired. RADIATION DOSE: NA LIMITATIONS: None. FINDINGS: LUNGS AND PLEURA: Bibasilar airspace disease is present likely atelectasis. Pneumonia cou ld not entirely be excluded. Trace left and right pleural fluid. No pneumothorax. MEDIASTINUM AND HILAR STRUCTURES: No masses. Contour normal. HEART AND VASCULAR STRUCTURES: Stable cardiomegaly and pulmonary vascular congestion BONES: No acute findings. HARDWARE: Right permanent central line tip superior vena cava. Tracheostomy tube tip midtrachea. Ol d sternotomy and CABG OTHER: No other significant finding. IMPRESSION: Tubes and lines in good positioning Bibasilar airspace disease left greater than right likely atelectasis. Pneumonia could not entirely be excluded. Suspect trace left pleural effusion TECHNICAL DOCUMENTATION: JOB ID: [id number] All Rights Reserved
[2017-09-11] MEDS: BUDESONIDE NEB 0.5 MG/2 ML AMPUL NEB SCH ×2 (08:19→20:47)
[2017-09-11] MEDS: METOPROLOL TARTRATE 25 MG TABLET NG SCH ×2 (10:46→21:32)
[2017-09-11] MEDS: LACTOBACILLUS ACIDOPHILUS 250 MG TAB NG SCH ×2 (10:46→16:55)
[2017-09-11] MEDS: ASCORBIC ACID 500 MG TABLET NG SCH ×2 (10:46→16:54)
[2017-09-11] MEDS: OXYCODONE-ACETAMINOPHEN 5-325 MG TABLET NG PRN (10:47)
[2017-09-11] MEDS: METOCLOPRAMIDE HCL INJ/PF 10 MG/2 ML SDV IV SCH ×2 (10:47→14:28)
[2017-09-11] MEDS: ASPIRIN 81 MG TABLET, CHEWABLE NG SCH (10:47)
[2017-09-11] MEDS: OXYCODONE HCL IR 5 MG TABLET NG PRN (10:47)
[2017-09-11] MEDS: METHYLPREDNISOLONE INJ 40 MG/1 ML SDV IV SCH ×2 (10:47→21:30)
[2017-09-11] MEDS: GUAIFENESIN SYRP 200 MG/10 ML UDC NG SCH ×2 (10:47→16:56)
[2017-09-11] MEDS: NICOTINE 14 MG/24 HR PATCH.TD24 TD SCH (10:47)
[2017-09-11] MEDS: POTASSIUM CHLORIDE 20 MEQ/15 ML UDCUP NG SCH (10:47)
[2017-09-11] MEDS: NITROGLYCERIN 10 MG (0.4 MG/HR) PATCH.TD24 TOP SCH (10:48)
[2017-09-11] MEDS: ENOXAPARIN SODIUM INJ 40 MG/0.4 ML DISP.SYRIN SUBCUT SCH (10:49)
[2017-09-11] MEDS: MIDAZOLAM 2 MG/2 ML INJ IV PRN ×2 (11:00→14:56)
--- NOTE | 2017-09-11 16:28 | PDOC PROGRESS REPORT ---
Subjective Progress Note for:: 09/11/17 Subjective:: The patient is a 72-year-old female who has severe, end-stage COPD. She has been in the hospital and intubated for approximately 2 weeks with failure to wean. Her has now decided to pursue tracheostomy with PEG. These were performed 09/09/2017. The nurse now reports purulent material emanating from around the trach site. This was not present this morning when I evaluated the patient. I did order 1 dose of Ancef 2 g after a culture was obtained. Culture is pending at this time. Reason For Visit: COPD EXACERBATION,PNEUMONIA,TOBACCO DEP Physical Exam Vital Signs: Temp Pulse Resp BP Pulse Ox 99.1 F 72 20 92/37 L 96 09/11/17 12:36 09/11/17 13:55 09/11/17 13:55 09/11/17 12:36 09/11/17 13:55 Intake & Output 09/10/17 09/11/17 09/12/17 06:59 06:59 06:59 Intake Total 3333 1607 Output Total 1440 2510 550 Balance 1893 -903 -550 Weight 90 kg 89.4 kg Additional comments: The patient is awake. She can follow some simple commands. This morning, she did not appear to be in any distress. She does have pigmentation of her skin around her eyelids. This is stable. She has some purpura on the skin. This morning, when I evaluated the trach site there was less bleeding and I did not appreciate any purulent discharge. The lungs have occasional rhonchi but have improved significantly. The patient's cardiac exam is regular without murmurs, gallops or rubs. The abdomen is soft and flat. The PEG tube site is clean dry and intact. Bowel sounds are present in the lower quadrants. The lower extremities demonstrate trace to 1+ edema which is symmetrical bilaterally. There are no new skin lesions or rashes present. Results Laboratory Results: 09/11/17 05:25 09/11/17 05:25 09/11/17 09/11/17 09/11/17 05:25 05:25 05:25 WBC 10.6 H RBC 4.35 Hgb 11.4 L Hct 35.0 L MCV 80 MCH 26.1 L MCHC 32.5 RDW 18.7 H Plt Count 157 Seg Neutrophils % 91.6 H Lymphocytes % 5.8 L Monocytes % 2.4 L Eosinophils % 0.0 Basophils % 0.2 Absolute Neutrophils 9.7 H Absolute Lymphocytes 0.6 Absolute Monocytes 0.2 Absolute Eosinophils 0.0 Absolute Basophils 0.0 Carbonic Acid 0.85 L HCO3/H2CO3 Ratio 21:1 ABG pH 7.43 ABG pCO2 28.1 L ABG pO2 68.2 L ABG HCO3 18.4 L ABG O2 Saturation 94.5 ABG Base Excess -4.6 FiO2 45% Sodium 143.0 Potassium 4.1 Chloride 117 H Carbon Dioxide 19 L Anion Gap 7 BUN 9 Creatinine 0.26 L Est GFR ( Amer) > 60 Est GFR (Non-Af Amer) > 60 Glucose 101 Calcium 8.5 Magnesium 2.1 Triglycerides 117 08/24/17 08/25/17 06:30 05:20 Troponin I < 0.012 NT-Pro-B Natriuret Pep 795 Impressions: KUB X-Ray 08/29/17 00:00 IMPRESSION: NG tube with its tip in the left upper quadrant presumably in the stomach. Chest X-Ray 09/11/17 06:00 IMPRESSION: Tubes and lines in good positioning Bibasilar airspace disease left greater than right likely atelectasis. Pneumonia could not entirely be excluded. Suspect trace left pleural effusion Assessment & Plan - Diagnosis (1) Acute respiratory failure with hypoxia Is this a current diagnosis for this admission?: Yes Plan: The patient's volume status may be positive secondary to increasing bilateral pleural effusions. Certainly, this could also be from critical illness with low albumin and just the patient's sedentary state. This may be the case since the patient's sodium is actually normal to elevated. In any event if we continue to have trouble with weaning I would recommend trials of diuresis. Patient underwent placement of tracheostomy with PEG tube 09/09/17. (2) COPD exacerbation Is this a current diagnosis for this admission?: Yes Plan: Continue bronchodilators, wean steroids. (3) Hypokalemia Is this a current diagnosis for this admission?: Yes Plan: Repleting orally today. Standing potassium orders have been written. (4) Respiratory failure Qualifiers: Chronicity: acute Respiratory failure complication: hypoxia Qualified Code(s): J96.01 - Acute respiratory failure with hypoxia Plan: She underwent tracheostomy placement; continue with weaning process.. (5) Diabetes mellitus type 2, controlled Qualifiers: Diabetes mellitus complication status: without complication Diabetes mellitus life skills educator insulin use: with life skills educator use Qualified Code(s): E11.9 - Type 2 diabetes mellitus without complications; Z79.4 - quarter doper (current) use of insulin; Z79.4 - quarter doper (current) use of insulin; Z79.4 - quarter doper ( current) use of insulin; Z79.4 - alf (current) use of insulin Is this a current diagnosis for this admission?: Yes Plan: Blood sugars remain in good range. Continue sliding scale. (6) INÉS (obstructive sleep apnea) Is this a current diagnosis for this admission?: Yes Plan: This will essentially resolve with tracheostomy. (7) Opiate dependence, continuous Is this a current diagnosis for this admission?: Yes Plan: Unfortunately, the use of chronic opiates exacerbates the patient's respiratory illness. (8) UTI (urinary tract infection) Qualifiers: Urinary tract infection type: site unspecified Hematuria presence: without hematuria Qualified Code(s): N39.0 - Urinary tract infection, site not specified Plan: Urine culture grew greater than 100,000 E. coli. She was treated with rocephin. (9) Metabolic acidosis Is this a current diagnosis for this admission?: Yes Plan: The patient has a stable non-anion gap metabolic acidosis. - Time Time Spent with patient: 25-34 minutes - Inpatient Certification Medical Necessity: Risk of Complication if Not Cared For in Hospital - Patient has a fresh tracheostomy and remains on the ventilator in the ICU. He will eventually need to be transferred to a ventilator weaning facility. I am concerned about the possibility of infection of the tracheostomy. Culture has just been sent.
[2017-09-11] MEDS ORDERED: CEFAZOLIN 2 GM/D5W RTU 2 GM/50 ML RTUPB IV ONE (18:00)
[2017-09-11] MEDS: ACETYLCYSTEINE 20% SOLN 800 MG/4 ML VIAL.NEB NEB SCH (20:48)
[2017-09-11] MEDS: ATORVASTATIN CALCIUM 40 MG TABLET NG SCH (21:31)
[2017-09-12] MEDS: PROPOFOL 100 ML IV PRN ×6 (00:49→20:24)
[2017-09-12] MEDS: IPRATROPIUM/ALBUTEROL 0.5-2.5 MG/3 ML AMPUL NEB SCH ×4 (02:16→20:00)
[2017-09-12 05:53] LABS: ABSOLUTE LYMPHOCYTES (AUTO) 0.8 10^3/uL (0.5-4.7); ABSOLUTE MONOCYTES (AUTO) 0.3 10^3/uL (0.1-1.4); BASOPHILS % (AUTO) 0.4 % (0-2); EOSINOPHILS % (AUTO) 0.1 % (0-6); HEMATOCRIT 33.8 % (36.0-47.0); HEMOGLOBIN 11.2 g/dL (12.0-15.5); LYMPHOCYTES % (AUTO) 9.2 % (13-45); MEAN CORPUSCULAR HEMOGLOBIN 26.2 pg (27.0-33.4); MEAN CORPUSCULAR HGB CONC 33.1 g/dL (32.0-36.0); MEAN CORPUSCULAR VOLUME 79 fl (80-97); MONOCYTES % (AUTO) 3.4 % (3-13); PLATELET COUNT 174 10^3/uL (150-450); RED BLOOD COUNT 4.27 10^6/uL (3.72-5.28); RED CELL DISTRIBUTION WIDTH 18.5 % (11.5-14.0); SEGMENTED NEUTROPHILS % (AUTO) 86.9 % (42-78); TOTAL CELLS COUNTED % (AUTO) 100 %; WHITE BLOOD COUNT 9.2 10^3/uL (4.0-10.5)
[2017-09-12 05:58] LABS: ARTERIAL BLOOD BASE EXCESS -3.2 mmol/L; ARTERIAL BLOOD H2CO3 0.72 mmol/L (1.05-1.35); ARTERIAL BLOOD HCO3 18.4 mmol/L (20-26); ARTERIAL BLOOD O2 SATURATION 93.3 % (94-98); ARTERIAL BLOOD PO2 59.2 mmHg (80-100); ARTERIAL BLOOD TOTAL CO2 19.2 mmol/L (21-25)
[2017-09-12 06:02] LABS: ARTERIAL BLOOD FIO2 45%
[2017-09-12 06:06] LABS: ANION GAP 9 (5-19); BLOOD UREA NITROGEN 10 mg/dL (7-20); CALCIUM 8.6 mg/dL (8.4-10.2); CARBON DIOXIDE 20 mmol/L (22-30); CHLORIDE 116 mmol/L (98-107); GLUCOSE 90 mg/dL (75-110); POTASSIUM 3.8 mmol/L (3.6-5.0); SODIUM 144.5 mmol/L (137-145)
[2017-09-12] MEDS: PREGABALIN 50 MG CAPSULE NG SCH ×3 (06:17→21:42)
[2017-09-12] MEDS: BUDESONIDE NEB 0.5 MG/2 ML AMPUL NEB SCH ×2 (08:22→19:59)
[2017-09-12] MEDS: ACETYLCYSTEINE 20% SOLN 800 MG/4 ML VIAL.NEB NEB SCH ×2 (08:22→20:00)
[2017-09-12] MEDS: GUAIFENESIN SYRP 200 MG/10 ML UDC NG SCH ×2 (08:30→19:13)
[2017-09-12] MEDS: POTASSIUM CHLORIDE 20 MEQ/15 ML UDCUP NG SCH (08:30)
[2017-09-12] MEDS: ASPIRIN 81 MG TABLET, CHEWABLE NG SCH (08:31)
[2017-09-12] MEDS: METOPROLOL TARTRATE 25 MG TABLET NG SCH ×2 (08:31→21:45)
[2017-09-12] MEDS: LACTOBACILLUS ACIDOPHILUS 250 MG TAB NG SCH ×2 (08:31→19:12)
[2017-09-12] MEDS: ASCORBIC ACID 500 MG TABLET NG SCH ×2 (08:32→19:10)
[2017-09-12] MEDS: NITROGLYCERIN 10 MG (0.4 MG/HR) PATCH.TD24 TOP SCH (08:33)
[2017-09-12] MEDS: NICOTINE 14 MG/24 HR PATCH.TD24 TD SCH (08:34)
[2017-09-12] MEDS: METHYLPREDNISOLONE INJ 40 MG/1 ML SDV IV SCH ×2 (08:34→21:43)
[2017-09-12] MEDS: ENOXAPARIN SODIUM INJ 40 MG/0.4 ML DISP.SYRIN SUBCUT SCH (08:35)
[2017-09-12] MEDS: NYSTATIN/TRIAMCIN OINTMENT 15 GM TP SCH (08:36)
[2017-09-12] MEDS ORDERED: ALBUTEROL SULFATE HFA (90 MCG/PUFF) 8 GM MDI (1 MDI/ER DISP) IH PRN (09:37)
[2017-09-12] MEDS ORDERED: VANCOMYCIN HCL 0 MG in DEXTROSE 5%-WATER 250 ML IV NR (09:45)
[2017-09-12] MEDS ORDERED: ROFLUMILAST 500 MCG TABLET PO SCH (10:00)
[2017-09-12] MEDS ORDERED: BUDESONIDE NEB 0.5 MG/2 ML AMPUL NEB SCH (10:00)
[2017-09-12] MEDS ORDERED: (PENDING PHARMACY ID) (Cholecalciferol (Vitamin D3) [Vitamin D3] 5,000 UNIT) PO SCH (10:00)
[2017-09-12] MEDS ORDERED: (PENDING PHARMACY ID) (Iron Ps Complex/B12/Folic Acid [Poly-Iron 150 Forte Capsule] 1 CAP) PO SCH (10:00)
[2017-09-12] MEDS ORDERED: FUROSEMIDE INJ/PF 20 MG/2 ML SDV IV SCH (10:00)
[2017-09-12] MEDS ORDERED: ALBUTEROL SULFATE HFA (90 MCG/PUFF) 200 PUFF/8.5 GM MDI IH PRN ×2 (10:08→10:30)
[2017-09-12] MEDS ORDERED: DIPHENHYDRAMINE HCL 50 MG/ML VIAL IV ONE (11:30)
[2017-09-12] MEDS ORDERED: VANCOMYCIN HCL 1,250 MG in DEXTROSE 5%-WATER 250 ML IV ONE (11:30)
[2017-09-12] MEDS ORDERED: IPRATROPIUM/ALBUTEROL 0.5-2.5 MG/3 ML AMPUL NEB SCH (12:00)
[2017-09-12] MEDS: FUROSEMIDE INJ/PF 40 MG/4 ML SDV IV SCH ×2 (12:35→21:43)
[2017-09-12] MEDS: MIDAZOLAM 2 MG/2 ML INJ IV PRN (12:38)
--- NOTE | 2017-09-12 17:52 | PDOC PROGRESS REPORT ---
Subjective Progress Note for:: 09/12/17 Subjective:: 72-year-old female with severe end-stage COPD. She was admitted on August 23 with acute hypoxic respiratory failure and was intubated. She remained intubated for approximately 2 weeks with failure to wean. Tracheostomy and PEG tube placement were performed on September 09, 2017. She reportedly had some purulent material emanating from the trach site, which was cultured. The patient was given 1 dose of Ancef. Reason For Visit: COPD EXACERBATION,PNEUMONIA,TOBACCO DEP Physical Exam Vital Signs: Temp Pulse Resp BP Pulse Ox 98.4 F 77 20 145/55 H 94 09/12/17 06:00 09/12/17 02:15 09/12/17 06:00 09/12/17 05:36 09/12/17 06:00 Intake & Output 09/11/17 09/12/17 09/13/17 06:59 06:59 06:59 Intake Total 1607 2046 Output Total 2510 2875 Balance -903 -829 Weight 89.4 kg 88.2 kg Additional comments: Elderly female lying in bed she is drowsy but arousable she has a trach and a PEG. Neck she has erythema and purulence around the trach site Lungs: Coarse breath sounds bilaterally no crackles heard Cardiac: S1-S2 regular, +++peripheral edema no cyanosis Abdomen: Soft, no focal tenderness, normal bowel sounds Results Laboratory Results: 09/12/17 05:40 09/12/17 05:40 09/12/17 09/12/17 09/12/17 05:40 05:40 05:40 WBC 9.2 RBC 4.27 Hgb 11.2 L Hct 33.8 L MCV 79 L MCH 26.2 L MCHC 33.1 RDW 18.5 H Plt Count 174 Seg Neutrophils % 86.9 H Lymphocytes % 9.2 L Monocytes % 3.4 Eosinophils % 0.1 Basophils % 0.4 Absolute Neutrophils 8.0 Absolute Lymphocytes 0.8 Absolute Monocytes 0.3 Absolute Eosinophils 0.0 Absolute Basophils 0.0 Carbonic Acid 0.72 L HCO3/H2CO3 Ratio 25:1 ABG pH 7.50 H ABG pCO2 24.0 L ABG pO2 59.2 L ABG HCO3 18.4 L ABG O2 Saturation 93.3 L ABG Base Excess -3.2 FiO2 45% Sodium 144.5 Potassium 3.8 Chloride 116 H Carbon Dioxide 20 L Anion Gap 9 BUN 10 Creatinine 0.31 L Est GFR ( Amer) > 60 Est GFR (Non-Af Amer) > 60 Glucose 90 Calcium 8.6 Magnesium 2.0 08/24/17 08/25/17 06:30 05:20 Troponin I < 0.012 NT-Pro-B Natriuret Pep 795 Impressions: KUB X-Ray 08/29/17 00:00 IMPRESSION: NG tube with its tip in the left upper quadrant presumably in the stomach. Chest X-Ray 09/11/17 06:00 IMPRESSION: Tubes and lines in good positioning Bibasilar airspace disease left greater than right likely atelectasis. Pneumonia could not entirely be excluded. Suspect trace left pleural effusion Assessment & Plan - Diagnosis (1) Acute respiratory failure with hypoxia Is this a current diagnosis for this admission?: Yes Plan: Volume overload with bilateral pleural effusions most likely due to critical illness with low albumin and sedentary state. (2) COPD exacerbation Is this a current diagnosis for this admission?: Yes Plan: On bronchodilators. Continue to wean steroids. (3) Hypokalemia Is this a current diagnosis for this admission?: Yes Plan: Replete and monitor peer (4) Metabolic acidosis Is this a current diagnosis for this admission?: Yes (5) UTI (urinary tract infection) Qualifiers: Urinary tract infection type: site unspecified Is this a current diagnosis for this admission?: Yes Plan: Ulcers grew E. coli. She was treated with Rocephin. (6) Diabetes mellitus type 2, controlled Qualifiers: Diabetes mellitus complication status: without complication Diabetes mellitus manager intermediate insulin use: with manager intermediate use Qualified Code(s): E11.9 - Type 2 diabetes mellitus without complications; Z79.4 - senior care (current) use of insulin; Z79.4 - manager intermediate (current) use of insulin; Z79.4 - senior care ( current) use of insulin; Z79.4 - senior care (current) use of insulin Is this a current diagnosis for this admission?: Yes Plan: Continue sliding scale insulin. (7) INÉS (obstructive sleep apnea) Is this a current diagnosis for this admission?: Yes (8) Opiate dependence, continuous Is this a current diagnosis for this admission?: Yes Plan: Oxycodone as needed. Continue Lyrica for her chronic pain.. - Time Total Critical Time (Minutes): 45 - Plan Summary Plan Summary: Culture from around the trach site is growing gram-positive cocci in clusters. She has been started on vancomycin. She has signs of volume overload. She has been started on Lasix IV 40 mg every 12 New bronchodilators and inhalers. Continue tube feeds. She is tolerating these well.
--- NOTE | 2017-09-12 18:29 | PDOC PROGRESS REPORT ---
Subjective Progress Note for:: 09/11/17 Subjective:: intubated Reason For Visit: COPD EXACERBATION,PNEUMONIA,TOBACCO DEP Physical Exam Vital Signs: Temp Pulse Resp BP Pulse Ox 99.3 F 112 H 25 H 150/58 H 97 09/11/17 08:00 09/11/17 08:16 09/11/17 08:16 09/11/17 08:00 09/11/17 08:00 Intake & Output 09/10/17 09/11/17 09/12/17 06:59 06:59 06:59 Intake Total 3333 1607 Output Total 1440 2510 75 Balance 1893 -903 -75 Weight 90 kg 89.4 kg General appearance: PRESENT: no acute distress, disheveled, well-developed. ABSENT: cooperative, mild distress, morbidly obese, severe distress Head exam: PRESENT: atraumatic, normocephalic Eye exam: PRESENT: conjunctiva pale. ABSENT: conjunctival injection, conjunctiva pink, nystagmus, periorbital swelling, scleral icterus Mouth exam: PRESENT: neck supple, tongue midline. ABSENT: laceration Teeth exam: PRESENT: poor dentation Neck exam: PRESENT: tracheostomy. ABSENT: carotid bruit, JVD, lymphadenopathy, thyromegaly, tracheal deviation Respiratory exam: PRESENT: crackles, decreased breath sounds, prolonged expiratory phas, rhonchi, symmetrical, unlabored, wheezes. ABSENT: accessory muscle use, chest wall tenderness, clear to auscultation garrison, rales, retraction , stridor, tachypnea Cardiovascular exam: PRESENT: RRR, +S1, +S2 Pulses: PRESENT: normal radial pulses GI/Abdominal exam: PRESENT: diminished bowel sounds Extremities exam: ABSENT: clubbing, full ROM, joint swelling Musculoskeletal exam: ABSENT: ambulatory, deformity, dislocation, full ROM Neurological exam: ABSENT: alert, awake Skin exam: PRESENT: dry, warm Results Laboratory Results: 09/11/17 05:25 09/11/17 05:25 09/11/17 09/11/17 09/11/17 05:25 05:25 05:25 WBC 10.6 H RBC 4.35 Hgb 11.4 L Hct 35.0 L MCV 80 MCH 26.1 L MCHC 32.5 RDW 18.7 H Plt Count 157 Seg Neutrophils % 91.6 H Lymphocytes % 5.8 L Monocytes % 2.4 L Eosinophils % 0.0 Basophils % 0.2 Absolute Neutrophils 9.7 H Absolute Lymphocytes 0.6 Absolute Monocytes 0.2 Absolute Eosinophils 0.0 Absolute Basophils 0.0 Carbonic Acid 0.85 L HCO3/H2CO3 Ratio 21:1 ABG pH 7.43 ABG pCO2 28.1 L ABG pO2 68.2 L ABG HCO3 18.4 L ABG O2 Saturation 94.5 ABG Base Excess -4.6 FiO2 45% Sodium 143.0 Potassium 4.1 Chloride 117 H Carbon Dioxide 19 L Anion Gap 7 BUN 9 Creatinine 0.26 L Est GFR ( Amer) > 60 Est GFR (Non-Af Amer) > 60 Glucose 101 Calcium 8.5 Magnesium 2.1 Triglycerides 117 08/24/17 08/25/17 06:30 05:20 Troponin I < 0.012 NT-Pro-B Natriuret Pep 795 Impressions: KUB X-Ray 08/29/17 00:00 IMPRESSION: NG tube with its tip in the left upper quadrant presumably in the stomach. Chest X-Ray 09/11/17 06:00 IMPRESSION: Tubes and lines in good positioning Bibasilar airspace disease left greater than right likely atelectasis. Pneumonia could not entirely be excluded. Suspect trace left pleural effusion Assessment & Plan - Diagnosis (1) Acute respiratory failure with hypoxia Is this a current diagnosis for this admission?: Yes Plan: d 12 intubation needs trach and PEG min volume same (2) INÉS (obstructive sleep apnea) Is this a current diagnosis for this admission?: Yes Plan: after extubation NIPPV (3) Acute and chronic respiratory failure with hypercapnia Is this a current diagnosis for this admission?: Yes Plan: try to sustain baseline hypercapnia (4) GERD (gastroesophageal reflux disease) Qualifiers: Esophagitis presence: without esophagitis Qualified Code(s): K21.9 - Gastro -esophageal reflux disease without esophagitis Is this a current diagnosis for this admission?: Yes Plan: ppi (5) Opiate dependence, continuous Is this a current diagnosis for this admission?: Yes Plan: minimal support (6) CHF (congestive heart failure) Qualifiers: Congestive heart failure type: unspecified congestive heart failure type Congestive heart failure chronicity: chronic Is this a current diagnosis for this admission?: Yes Plan: unchanged (7) Pulmonary hypertension Is this a current diagnosis for this admission?: Yes Plan: INÉS chronic hypoxia (8) Tobacco dependency Is this a current diagnosis for this admission?: Yes Plan: transdermal nicotine - Time Total Critical Time (Minutes): 40
--- NOTE | 2017-09-12 18:31 | PDOC PROGRESS REPORT ---
Subjective Progress Note for:: 09/12/17 Subjective:: intubated Reason For Visit: COPD EXACERBATION,PNEUMONIA,TOBACCO DEP Physical Exam Vital Signs: Temp Pulse Resp BP Pulse Ox 98.4 F 89 20 145/55 H 90 L 09/12/17 06:00 09/12/17 08:22 09/12/17 08:22 09/12/17 05:36 09/12/17 08:22 Intake & Output 09/11/17 09/12/17 09/13/17 06:59 06:59 06:59 Intake Total 1607 2046 Output Total 2510 0825 300 Balance -903 -829 -300 Weight 89.4 kg 88.2 kg General appearance: PRESENT: no acute distress, disheveled, well-developed. ABSENT: cooperative, mild distress, morbidly obese, severe distress Head exam: PRESENT: atraumatic, normocephalic Eye exam: PRESENT: conjunctiva pale. ABSENT: conjunctival injection, conjunctiva pink, nystagmus, periorbital swelling, scleral icterus Mouth exam: PRESENT: dry mucosa, neck supple, tongue midline. ABSENT: laceration, moist Neck exam: PRESENT: tracheostomy. ABSENT: carotid bruit, JVD, lymphadenopathy, thyromegaly, tracheal deviation Respiratory exam: PRESENT: decreased breath sounds, prolonged expiratory phas, rales, rhonchi, symmetrical, unlabored, wheezes. ABSENT: accessory muscle use, chest wall tenderness, clear to auscultation garrison, crackles, retraction, stridor , tachypnea Cardiovascular exam: PRESENT: RRR, +S1, +S2 Pulses: PRESENT: normal radial pulses GI/Abdominal exam: PRESENT: diminished bowel sounds, soft Extremities exam: ABSENT: clubbing, full ROM, joint swelling Musculoskeletal exam: ABSENT: ambulatory, deformity, dislocation, full ROM Neurological exam: ABSENT: alert, awake Skin exam: PRESENT: dry, warm Results Laboratory Results: 09/12/17 05:40 09/12/17 05:40 09/12/17 09/12/17 09/12/17 05:40 05:40 05:40 WBC 9.2 RBC 4.27 Hgb 11.2 L Hct 33.8 L MCV 79 L MCH 26.2 L MCHC 33.1 RDW 18.5 H Plt Count 174 Seg Neutrophils % 86.9 H Lymphocytes % 9.2 L Monocytes % 3.4 Eosinophils % 0.1 Basophils % 0.4 Absolute Neutrophils 8.0 Absolute Lymphocytes 0.8 Absolute Monocytes 0.3 Absolute Eosinophils 0.0 Absolute Basophils 0.0 Carbonic Acid 0.72 L HCO3/H2CO3 Ratio 25:1 ABG pH 7.50 H ABG pCO2 24.0 L ABG pO2 59.2 L ABG HCO3 18.4 L ABG O2 Saturation 93.3 L ABG Base Excess -3.2 FiO2 45% Sodium 144.5 Potassium 3.8 Chloride 116 H Carbon Dioxide 20 L Anion Gap 9 BUN 10 Creatinine 0.31 L Est GFR ( Amer) > 60 Est GFR (Non-Af Amer) > 60 Glucose 90 Calcium 8.6 Magnesium 2.0 08/24/17 08/25/17 06:30 05:20 Troponin I < 0.012 NT-Pro-B Natriuret Pep 795 Impressions: KUB X-Ray 08/29/17 00:00 IMPRESSION: NG tube with its tip in the left upper quadrant presumably in the stomach. Chest X-Ray 09/11/17 06:00 IMPRESSION: Tubes and lines in good positioning Bibasilar airspace disease left greater than right likely atelectasis. Pneumonia could not entirely be excluded. Suspect trace left pleural effusion Assessment & Plan - Diagnosis (1) Acute respiratory failure with hypoxia Is this a current diagnosis for this admission?: Yes Plan: d 12 intubation needs trach and PEG min volume same (2) INÉS (obstructive sleep apnea) Is this a current diagnosis for this admission?: Yes Plan: after extubation NIPPV (3) Acute and chronic respiratory failure with hypercapnia Is this a current diagnosis for this admission?: Yes Plan: try to sustain baseline hypercapnia (4) GERD (gastroesophageal reflux disease) Qualifiers: Esophagitis presence: without esophagitis Qualified Code(s): K21.9 - Gastro -esophageal reflux disease without esophagitis Is this a current diagnosis for this admission?: Yes Plan: ppi (5) Opiate dependence, continuous Is this a current diagnosis for this admission?: Yes Plan: minimal support (6) CHF (congestive heart failure) Qualifiers: Congestive heart failure type: unspecified congestive heart failure type Congestive heart failure chronicity: chronic Is this a current diagnosis for this admission?: Yes Plan: unchanged (7) Pulmonary hypertension Is this a current diagnosis for this admission?: Yes Plan: INÉS chronic hypoxia (8) Tobacco dependency Is this a current diagnosis for this admission?: Yes Plan: transdermal nicotine - Time Total Critical Time (Minutes): 40
--- NOTE | 2017-09-12 19:02 | PDOC PROGRESS REPORT ---
Subjective Progress Note for:: 09/12/17 Subjective:: Intubated and sedated. General surgery asked to reevaluate patient who underwent tracheostomy several days ago. Noted with purulent drainage around the tracheostomy. Reason For Visit: COPD EXACERBATION,PNEUMONIA,TOBACCO DEP Physical Exam Vital Signs: Temp Pulse Resp BP Pulse Ox 91.4 F L 66 20 141/54 H 96 09/12/17 14:37 09/12/17 14:27 09/12/17 14:37 09/12/17 14:37 09/12/17 14:37 Intake & Output 09/11/17 09/12/17 09/13/17 06:59 06:59 06:59 Intake Total 1607 2046 Output Total 2510 2875 1900 Balance -903 -829 -1900 Weight 89.4 kg 88.2 kg General appearance: PRESENT: no acute distress Neck exam: PRESENT: other - Tracheostomy in place. The lateral sutures holding the tracheostomy apparatus in place were cut to allow better visualization of the tracheostomy skin exit site. There is purulent drainage around the tracheostomy. There is minimal surrounding erythema. There is no induration. Results Laboratory Results: 09/12/17 05:40 09/12/17 05:40 09/12/17 09/12/17 09/12/17 05:40 05:40 05:40 WBC 9.2 RBC 4.27 Hgb 11.2 L Hct 33.8 L MCV 79 L MCH 26.2 L MCHC 33.1 RDW 18.5 H Plt Count 174 Seg Neutrophils % 86.9 H Lymphocytes % 9.2 L Monocytes % 3.4 Eosinophils % 0.1 Basophils % 0.4 Absolute Neutrophils 8.0 Absolute Lymphocytes 0.8 Absolute Monocytes 0.3 Absolute Eosinophils 0.0 Absolute Basophils 0.0 Carbonic Acid 0.72 L HCO3/H2CO3 Ratio 25:1 ABG pH 7.50 H ABG pCO2 24.0 L ABG pO2 59.2 L ABG HCO3 18.4 L ABG O2 Saturation 93.3 L ABG Base Excess -3.2 FiO2 45% Sodium 144.5 Potassium 3.8 Chloride 116 H Carbon Dioxide 20 L Anion Gap 9 BUN 10 Creatinine 0.31 L Est GFR ( Amer) > 60 Est GFR (Non-Af Amer) > 60 Glucose 90 Calcium 8.6 Magnesium 2.0 09/11/17 16:50 Tracheal Aspirate Gram Stain - Final 08/24/17 08/25/17 09/12/17 06:30 05:20 05:40 Troponin I < 0.012 NT-Pro-B Natriuret Pep 795 4880 H Impressions: KUB X-Ray 08/29/17 00:00 IMPRESSION: NG tube with its tip in the left upper quadrant presumably in the stomach. Chest X-Ray 09/11/17 06:00 IMPRESSION: Tubes and lines in good positioning Bibasilar airspace disease left greater than right likely atelectasis. Pneumonia could not entirely be excluded. Suspect trace left pleural effusion Assessment & Plan - Diagnosis (1) Infection of tracheostomy Is this a current diagnosis for this admission?: Yes Plan: Tracheostomy site infection. I packed the region around the tracheostomy with dry gauze. I have instructed the nursing staff on careful dressing changes to keep this area dry. And I have instructed her on proper techniques to avoid dislodging the tracheostomy. Await culture results. Continue broad-spectrum antibiotics. Will do local wound care with dry dressing changes. I do not see any role for any other surgical intervention at this time.
[2017-09-12] MEDS: VANCOMYCIN HCL 1,250 MG in DEXTROSE 5%-WATER 250 ML IV SCH (19:09)
[2017-09-12] MEDS: DIPHENHYDRAMINE HCL 50 MG/ML VIAL IV PRN (19:10)
[2017-09-12] MEDS: IRON POLYSACCHARIDES COMPLEX 150 MG CAPSULE PO SCH (19:17)
[2017-09-12] MEDS: ATORVASTATIN CALCIUM 40 MG TABLET NG SCH (21:42)
[2017-09-12] MEDS: RANOLAZINE 500 MG TAB.SR.12H PO SCH (21:43)
[2017-09-12] MEDS ORDERED: (PENDING PHARMACY ID) (Melatonin [Melatin] 3 MG) PO SCH (22:00)
[2017-09-13] MEDS: VANCOMYCIN HCL 1,250 MG in DEXTROSE 5%-WATER 250 ML IV SCH ×2 (02:03→10:48)
[2017-09-13] MEDS: PROPOFOL 100 ML IV PRN ×4 (02:05→22:38)
[2017-09-13] MEDS: IPRATROPIUM/ALBUTEROL 0.5-2.5 MG/3 ML AMPUL NEB SCH ×4 (02:34→19:54)
[2017-09-13 05:15] LABS: ABSOLUTE LYMPHOCYTES (AUTO) 0.6 10^3/uL (0.5-4.7); ABSOLUTE MONOCYTES (AUTO) 0.3 10^3/uL (0.1-1.4); ABSOLUTE NEUT (AUTO) 8.5 10^3/uL (1.7-8.2); ARTERIAL BLOOD BASE EXCESS 0.1 mmol/L; ARTERIAL BLOOD FIO2 75; ARTERIAL BLOOD H2CO3 0.76 mmol/L (1.05-1.35); ARTERIAL BLOOD HCO3 21.4 mmol/L (20-26); ARTERIAL BLOOD O2 SATURATION 96.1 % (94-98); ARTERIAL BLOOD PCO2 25.3 mmHg (35-45); ARTERIAL BLOOD PH 7.55 (7.35-7.45); ARTERIAL BLOOD PO2 69.8 mmHg (80-100); ARTERIAL BLOOD TOTAL CO2 22.2 mmol/L (21-25); BASOPHILS % (AUTO) 0.2 % (0-2); EOSINOPHILS % (AUTO) 0.1 % (0-6); HEMATOCRIT 32.9 % (36.0-47.0); HEMOGLOBIN 10.8 g/dL (12.0-15.5); LYMPHOCYTES % (AUTO) 6.3 % (13-45); MEAN CORPUSCULAR HEMOGLOBIN 25.9 pg (27.0-33.4); MEAN CORPUSCULAR HGB CONC 32.9 g/dL (32.0-36.0); MEAN CORPUSCULAR VOLUME 79 fl (80-97); MONOCYTES % (AUTO) 2.8 % (3-13); PLATELET COUNT 178 10^3/uL (150-450); RED BLOOD COUNT 4.18 10^6/uL (3.72-5.28); RED CELL DISTRIBUTION WIDTH 18.5 % (11.5-14.0); SEGMENTED NEUTROPHILS % (AUTO) 90.6 % (42-78); TOTAL CELLS COUNTED % (AUTO) 100 %; WHITE BLOOD COUNT 9.3 10^3/uL (4.0-10.5)
[2017-09-13] MEDS: PREGABALIN 50 MG CAPSULE NG SCH ×3 (05:26→23:20)
[2017-09-13 05:27] LABS: ANION GAP 11 (5-19); BLOOD UREA NITROGEN 13 mg/dL (7-20); CALCIUM 8.3 mg/dL (8.4-10.2); CARBON DIOXIDE 22 mmol/L (22-30); CHLORIDE 110 mmol/L (98-107); GLUCOSE 157 mg/dL (75-110); MAGNESIUM 1.8 mg/dL (1.6-2.3); POTASSIUM 3.5 mmol/L (3.6-5.0); SODIUM 142.8 mmol/L (137-145)
--- NOTE | 2017-09-13 07:47 | RADIOLOGY REPORT (SQ) ---
EXAM DESCRIPTION: CHEST SINGLE VIEW COMPLETED DATE/TIME: 09/13/2017 6:59 am REASON FOR STUDY: resp failure COMPARISON: Chest films 04/30/2017, 09/02/2017, 09/06/2017, 09/09/2017, 09/11/2017 EXAM PARAMETERS: NUMBER OF VIEWS: One view. TECHNIQUE: Single frontal radiographic view of the chest acquired. RADIATION DOSE: NA LIMITATIONS: None. FINDINGS: LUNGS AND PLEURA: Patchy bibasilar airspace disease is present atelectasis versus pneumoni a. This is similar compared to 09/11/2017 and 09/09/2017. No pleural effusions. No pneumothorax. MEDIASTINUM AND HILAR STRUCTURES: No masses. Contour normal. HEART AND VASCULAR STRUCTURES: Plaque stable mild to moderate cardiomegaly. BONES: No acute findings. HARDWARE: Tracheostomy tube tip midtrachea. Right permanent central line tip superior vena cava OTHER: No other significant finding. IMPRESSION: No change in bibasilar airspace disease. TECHNICAL DOCUMENTATION: JOB ID: [id number] [id number]- All Rights Reserved
[2017-09-13] MEDS ORDERED: (PENDING PHARMACY ID) (Roflumilast [Daliresp 500 Mcg Tablet] 500 MCG) PO SCH (08:00)
[2017-09-13] MEDS: ACETYLCYSTEINE 20% SOLN 800 MG/4 ML VIAL.NEB NEB SCH ×2 (08:23→19:53)
[2017-09-13] MEDS: BUDESONIDE NEB 0.5 MG/2 ML AMPUL NEB SCH ×2 (08:23→19:54)
--- NOTE | 2017-09-13 09:06 | PDOC PROGRESS REPORT ---
Subjective Progress Note for:: 09/13/17 Reason For Visit: COPD EXACERBATION,PNEUMONIA,TOBACCO DEP Purulkent drainage of tracheostomy site Physical Exam Vital Signs: Temp Pulse Resp BP Pulse Ox 98.8 F 74 12 127/48 H 91 L 09/13/17 08:00 09/13/17 08:23 09/13/17 08:23 09/13/17 08:00 09/13/17 08:23 Intake & Output 09/12/17 09/13/17 09/14/17 06:59 06:59 06:59 Intake Total 2046 3065 Output Total 2875 5247 50 Balance -829 -2175 -50 Weight 88.2 kg 85 kg Neck exam: PRESENT: tracheostomy - site with minimal left cutaneousl erythema, and minimal drainage noted in sponges Results Laboratory Results: 09/13/17 05:00 09/13/17 05:00 09/13/17 09/13/17 09/13/17 05:00 05:00 05:00 WBC 9.3 RBC 4.18 Hgb 10.8 L Hct 32.9 L MCV 79 L MCH 25.9 L MCHC 32.9 RDW 18.5 H Plt Count 178 Seg Neutrophils % 90.6 H Lymphocytes % 6.3 L Monocytes % 2.8 L Eosinophils % 0.1 Basophils % 0.2 Absolute Neutrophils 8.5 H Absolute Lymphocytes 0.6 Absolute Monocytes 0.3 Absolute Eosinophils 0.0 Absolute Basophils 0.0 Carbonic Acid 0.76 L HCO3/H2CO3 Ratio 28:1 ABG pH 7.55 H ABG pCO2 25.3 L ABG pO2 69.8 L ABG HCO3 21.4 ABG O2 Saturation 96.1 ABG Base Excess 0.1 FiO2 75 Sodium 142.8 Potassium 3.5 L Chloride 110 H Carbon Dioxide 22 Anion Gap 11 BUN 13 Creatinine 0.35 L Est GFR ( Amer) > 60 Est GFR (Non-Af Amer) > 60 Glucose 157 H Calcium 8.3 L Magnesium 1.8 09/11/17 16:50 Tracheal Aspirate Gram Stain - Final 09/11/17 16:50 Tracheal Aspirate Sputum Culture - Final Staphylococcus Aureus Normal Romi Absent 08/24/17 08/25/17 09/12/17 06:30 05:20 05:40 Troponin I < 0.012 NT-Pro-B Natriuret Pep 795 4880 H Impressions: KUB X-Ray 08/29/17 00:00 IMPRESSION: NG tube with its tip in the left upper quadrant presumably in the stomach. Chest X-Ray 09/13/17 06:00 IMPRESSION: No change in bibasilar airspace disease. Assessment & Plan - Diagnosis (1) Infection of tracheostomy Is this a current diagnosis for this admission?: Yes - Plan Summary Plan Summary: Apply Triple antibiotic ointment to tracheostomy site and pack tracheotomy site with triple antibiotic ointment soaked sponges BID
[2017-09-13 09:33] LABS: VANCOMYCIN,TROUGH 30.2 ug/mL (5.0-20.0)
[2017-09-13] MEDS: MIDAZOLAM 2 MG/2 ML INJ IV PRN (09:33)
[2017-09-13] MEDS ORDERED: MIDAZOLAM 2 MG/2 ML INJ ONE (09:33)
[2017-09-13] MEDS: ASCORBIC ACID 500 MG TABLET NG SCH ×2 (10:32→18:30)
[2017-09-13] MEDS: CHOLECALCIFEROL (D3) 1,000 UNIT TABLET NG SCH (10:32)
[2017-09-13] MEDS: ASPIRIN 81 MG TABLET, CHEWABLE NG SCH (10:33)
[2017-09-13] MEDS: LACTOBACILLUS ACIDOPHILUS 250 MG TAB NG SCH ×2 (10:33→18:29)
[2017-09-13] MEDS: GUAIFENESIN SYRP 200 MG/10 ML UDC NG SCH ×2 (10:33→18:29)
[2017-09-13] MEDS: POTASSIUM CHLORIDE 20 MEQ/15 ML UDCUP NG SCH (10:33)
[2017-09-13] MEDS: ROFLUMILAST 500 MCG TABLET NG SCH (10:34)
[2017-09-13] MEDS: OXYCODONE-ACETAMINOPHEN 5-325 MG TABLET NG PRN ×2 (10:34→23:20)
[2017-09-13] MEDS: OXYCODONE HCL IR 5 MG TABLET NG PRN ×2 (10:34→23:20)
[2017-09-13] MEDS: METOPROLOL TARTRATE 25 MG TABLET NG SCH ×2 (10:35→23:19)
[2017-09-13] MEDS: IRON POLYSACCHARIDES COMPLEX 150 MG CAPSULE PO SCH ×2 (10:36→18:32)
[2017-09-13] MEDS: DIPHENHYDRAMINE HCL 50 MG/ML VIAL IV PRN (10:42)
[2017-09-13] MEDS: FUROSEMIDE INJ/PF 40 MG/4 ML SDV IV SCH ×2 (10:47→23:19)
[2017-09-13] MEDS: NITROGLYCERIN 10 MG (0.4 MG/HR) PATCH.TD24 TOP SCH (10:49)
[2017-09-13] MEDS: NICOTINE 14 MG/24 HR PATCH.TD24 TD SCH (10:49)
[2017-09-13] MEDS: METHYLPREDNISOLONE INJ 40 MG/1 ML SDV IV SCH ×2 (10:49→23:19)
[2017-09-13] MEDS: NYSTATIN/TRIAMCIN OINTMENT 15 GM TP SCH (10:50)
[2017-09-13] MEDS: TIOTROPIUM BROMIDE DPI 5 CAP/KIT (18 MCG/CAP) IH SCH (10:57)
[2017-09-13] MEDS ORDERED: POTASSIUM CHLORIDE 20 MEQ/15 ML UDCUP PEG ONE (11:30)
[2017-09-13] MEDS: ENOXAPARIN SODIUM INJ 40 MG/0.4 ML DISP.SYRIN SUBCUT SCH (12:42)
[2017-09-13] MEDS: RANOLAZINE 500 MG TAB.SR.12H PO SCH ×2 (12:45→23:19)
[2017-09-13] MEDS: MAGNESIUM OXIDE 400 MG TABLET PEG SCH (12:45)
[2017-09-13] MEDS ORDERED: LACTULOSE SYRUP 20 GM/30 ML UDCUP PEG PRN (13:38)
--- NOTE | 2017-09-13 18:33 | PDOC PROGRESS REPORT ---
Subjective Progress Note for:: 09/13/17 Subjective:: 72-year-old female with severe end-stage COPD. She was admitted on August 23 with acute hypoxic respiratory failure and was intubated. She remained intubated for approximately 2 weeks with failure to wean. Tracheostomy and PEG tube placement were performed on September 09, 2017. Some erythema and discharge from the trach site and she was started on vancomycin yesterday. Cultures are growing staph. aureus. Reason For Visit: COPD EXACERBATION,PNEUMONIA,TOBACCO DEP Physical Exam Vital Signs: Temp Pulse Resp BP Pulse Ox 99.0 F 64 20 132/60 H 93 09/13/17 18:00 09/13/17 16:00 09/13/17 18:00 09/13/17 17:38 09/13/17 18:00 Intake & Output 09/12/17 09/13/17 09/14/17 06:59 06:59 06:59 Intake Total 2046 3065 435 Output Total 2875 5230 7575 Balance -993 -3121 -6139 Weight 88.2 kg 85 kg Additional comments: Elderly female lying in bed she is drowsy but arousable she has a trach and a PEG. Neck she has erythema and purulence around the trach site Lungs: Coarse breath sounds bilaterally no crackles heard Cardiac: S1-S2 regular, +++peripheral edema no cyanosis Abdomen: Soft, no focal tenderness, normal bowel sounds Results Laboratory Results: 09/13/17 05:00 09/13/17 05:00 09/13/17 09/13/17 09/13/17 05:00 05:00 05:00 WBC 9.3 RBC 4.18 Hgb 10.8 L Hct 32.9 L MCV 79 L MCH 25.9 L MCHC 32.9 RDW 18.5 H Plt Count 178 Seg Neutrophils % 90.6 H Lymphocytes % 6.3 L Monocytes % 2.8 L Eosinophils % 0.1 Basophils % 0.2 Absolute Neutrophils 8.5 H Absolute Lymphocytes 0.6 Absolute Monocytes 0.3 Absolute Eosinophils 0.0 Absolute Basophils 0.0 Carbonic Acid 0.76 L HCO3/H2CO3 Ratio 28:1 ABG pH 7.55 H ABG pCO2 25.3 L ABG pO2 69.8 L ABG HCO3 21.4 ABG O2 Saturation 96.1 ABG Base Excess 0.1 FiO2 75 Sodium 142.8 Potassium 3.5 L Chloride 110 H Carbon Dioxide 22 Anion Gap 11 BUN 13 Creatinine 0.35 L Est GFR ( Amer) > 60 Est GFR (Non-Af Amer) > 60 Glucose 157 H Calcium 8.3 L Magnesium 1.8 09/11/17 15:15 Trach Site Gram Stain - Final 09/11/17 15:15 Trach Site Wound Culture - Final Staphylococcus Aureus Skin Romi 09/11/17 16:50 Tracheal Aspirate Gram Stain - Final 09/11/17 16:50 Tracheal Aspirate Sputum Culture - Final Staphylococcus Aureus Normal Romi Absent 08/24/17 08/25/17 09/12/17 06:30 05:20 05:40 Troponin I < 0.012 NT-Pro-B Natriuret Pep 795 4880 H Impressions: KUB X-Ray 08/29/17 00:00 IMPRESSION: NG tube with its tip in the left upper quadrant presumably in the stomach. Chest X-Ray 09/13/17 06:00 IMPRESSION: No change in bibasilar airspace disease. Assessment & Plan - Diagnosis (1) Acute respiratory failure with hypoxia Is this a current diagnosis for this admission?: Yes (2) COPD exacerbation Is this a current diagnosis for this admission?: Yes (3) Hypokalemia Is this a current diagnosis for this admission?: Yes (4) Metabolic acidosis Is this a current diagnosis for this admission?: Yes (5) UTI (urinary tract infection) Qualifiers: Urinary tract infection type: site unspecified Is this a current diagnosis for this admission?: Yes (6) Diabetes mellitus type 2, controlled Qualifiers: Diabetes mellitus complication status: without complication Diabetes mellitus senior care insulin use: with senior care use Qualified Code(s): E11.9 - Type 2 diabetes mellitus without complications; Z79.4 - local intermodal truck driver (current) use of insulin; Z79.4 - longterm (current) use of insulin; Z79.4 - longterm ( current) use of insulin; Z79.4 - longterm (current) use of insulin Is this a current diagnosis for this admission?: Yes (7) INÉS (obstructive sleep apnea) Is this a current diagnosis for this admission?: Yes (8) Opiate dependence, continuous Is this a current diagnosis for this admission?: Yes - Time Time Spent with patient: 35 or more minutes - Plan Summary Plan Summary: Continue antibiotics inhalers steroid taper and tube feeds. Continue vent support.
[2017-09-13] MEDS: ATORVASTATIN CALCIUM 40 MG TABLET NG SCH (23:20)
[2017-09-14] MEDS: IPRATROPIUM/ALBUTEROL 0.5-2.5 MG/3 ML AMPUL NEB SCH ×3 (02:05→13:30)
[2017-09-14] MEDS: PROPOFOL 100 ML IV PRN ×3 (02:08→10:03)
[2017-09-14] MEDS: PREGABALIN 50 MG CAPSULE NG SCH ×2 (05:16→13:36)
[2017-09-14 05:56] LABS: HEMOGLOBIN 11.2 g/dL (12.0-15.5); MEAN CORPUSCULAR HEMOGLOBIN 26.1 pg (27.0-33.4); MEAN CORPUSCULAR HGB CONC 32.9 g/dL (32.0-36.0); MEAN CORPUSCULAR VOLUME 79 fl (80-97); RED BLOOD COUNT 4.28 10^6/uL (3.72-5.28); RED CELL DISTRIBUTION WIDTH 18.6 % (11.5-14.0); WHITE BLOOD COUNT 9.1 10^3/uL (4.0-10.5)
[2017-09-14] MEDS ORDERED: VANCOMYCIN HCL 1,000 MG in DEXTROSE 5%-WATER 250 ML IV SCH (06:00)
[2017-09-14 06:08] LABS: ANION GAP 9 (5-19); BLOOD UREA NITROGEN 14 mg/dL (7-20); CALCIUM 8.5 mg/dL (8.4-10.2); CARBON DIOXIDE 27 mmol/L (22-30); CHLORIDE 107 mmol/L (98-107); GLUCOSE 112 mg/dL (75-110); PHOSPHORUS 3.9 mg/dL (2.5-4.5); POTASSIUM 3.6 mmol/L (3.6-5.0); SODIUM 143.4 mmol/L (137-145); TRIGLYCERIDES 135 mg/dL (<150)
[2017-09-14 06:18] LABS: PLATELET COUNT 169 10^3/uL (150-450)
[2017-09-14] MEDS: ACETYLCYSTEINE 20% SOLN 800 MG/4 ML VIAL.NEB NEB SCH (08:14)
[2017-09-14] MEDS: BUDESONIDE NEB 0.5 MG/2 ML AMPUL NEB SCH (08:14)
[2017-09-14] MEDS ORDERED: AMOXICILLIN TR/POT CLAVULANATE 500-125 MG TAB PO ONE (09:00)
--- NOTE | 2017-09-14 09:12 | PDOC PROGRESS REPORT ---
Subjective Progress Note for:: 09/14/17 Reason For Visit: F/u tracheostomy site Physical Exam Vital Signs: Temp Pulse Resp BP Pulse Ox 97.7 F 53 L 20 122/44 L 93 09/14/17 08:00 09/14/17 08:00 09/14/17 08:00 09/14/17 08:00 09/14/17 08:00 Intake & Output 09/13/17 09/14/17 09/15/17 06:59 06:59 06:59 Intake Total 3065 2388 Output Total 5268 4885 175 Balance -2175 -2497 -175 Weight 85 kg 81.7 kg Neck exam: PRESENT: tracheostomy - site clean, no drainage or odor Results Laboratory Results: 09/14/17 05:25 09/14/17 05:25 09/14/17 09/14/17 05:25 05:25 WBC 9.1 RBC 4.28 Hgb 11.2 L Hct 34.0 L MCV 79 L MCH 26.1 L MCHC 32.9 RDW 18.6 H Plt Count 169 Sodium 143.4 Potassium 3.6 Chloride 107 Carbon Dioxide 27 Anion Gap 9 BUN 14 Creatinine 0.36 L Est GFR ( Amer) > 60 Est GFR (Non-Af Amer) > 60 Glucose 112 H Calcium 8.5 Phosphorus 3.9 Magnesium 2.0 Triglycerides 135 09/11/17 15:15 Trach Site Gram Stain - Final 09/11/17 15:15 Trach Site Wound Culture - Final Staphylococcus Aureus Skin Romi 09/11/17 16:50 Tracheal Aspirate Gram Stain - Final 09/11/17 16:50 Tracheal Aspirate Sputum Culture - Final Staphylococcus Aureus Normal Romi Absent 08/24/17 08/25/17 09/12/17 06:30 05:20 05:40 Troponin I < 0.012 NT-Pro-B Natriuret Pep 795 4880 H 09/14/17 05:25 Troponin I NT-Pro-B Natriuret Pep 3020 H Impressions: KUB X-Ray 08/29/17 00:00 IMPRESSION: NG tube with its tip in the left upper quadrant presumably in the stomach. Chest X-Ray 09/13/17 06:00 IMPRESSION: No change in bibasilar airspace disease. Assessment & Plan - Diagnosis (1) Infection of tracheostomy Is this a current diagnosis for this admission?: Yes - Plan Summary Plan Summary: Continue triple antibiotic application on tracheostomy site Patient to be transferred to [facility] care [facility] today
[2017-09-14] MEDS: CHOLECALCIFEROL (D3) 1,000 UNIT TABLET NG SCH (09:41)
[2017-09-14] MEDS: ASCORBIC ACID 500 MG TABLET NG SCH (09:42)
[2017-09-14] MEDS: METOPROLOL TARTRATE 25 MG TABLET NG SCH (09:42)
[2017-09-14] MEDS: ASPIRIN 81 MG TABLET, CHEWABLE NG SCH (09:43)
[2017-09-14] MEDS: LACTOBACILLUS ACIDOPHILUS 250 MG TAB NG SCH (09:43)
[2017-09-14] MEDS: POTASSIUM CHLORIDE 20 MEQ/15 ML UDCUP NG SCH (09:43)
[2017-09-14] MEDS: GUAIFENESIN SYRP 200 MG/10 ML UDC NG SCH (09:43)
[2017-09-14] MEDS: RANOLAZINE 500 MG TAB.SR.12H PO SCH (09:43)
[2017-09-14] MEDS: ROFLUMILAST 500 MCG TABLET NG SCH (09:43)
[2017-09-14] MEDS: METHYLPREDNISOLONE INJ 40 MG/1 ML SDV IV SCH (09:44)
[2017-09-14] MEDS: FUROSEMIDE INJ/PF 40 MG/4 ML SDV IV SCH (09:45)
[2017-09-14] MEDS: IRON POLYSACCHARIDES COMPLEX 150 MG CAPSULE PO SCH (09:46)
[2017-09-14] MEDS: NYSTATIN/TRIAMCIN OINTMENT 15 GM TP SCH (09:46)
[2017-09-14] MEDS: ENOXAPARIN SODIUM INJ 40 MG/0.4 ML DISP.SYRIN SUBCUT SCH (09:58)
[2017-09-14] MEDS: NITROGLYCERIN 10 MG (0.4 MG/HR) PATCH.TD24 TOP SCH (09:59)
[2017-09-14] MEDS: NICOTINE 14 MG/24 HR PATCH.TD24 TD SCH (10:08)
[2017-09-14] MEDS: TIOTROPIUM BROMIDE DPI 5 CAP/KIT (18 MCG/CAP) IH SCH (10:24)
[2017-09-14] MEDS: OXYCODONE-ACETAMINOPHEN 5-325 MG TABLET NG PRN (11:22)
[2017-09-14] MEDS: OXYCODONE HCL IR 5 MG TABLET NG PRN (11:23)
[2017-09-14] MEDS: MAGNESIUM OXIDE 400 MG TABLET PEG SCH (11:30)
--- NOTE | 2017-09-14 13:09 | PDOC DISCHARGE SUMMARY ---
General - Admit/Disc Date/PCP Admission Date/Primary Care Provider: 08/23/17 15:24 TYSON ROLDAN MD Discharge Date: 09/14/17 - Discharge Diagnosis (1) Acute respiratory failure with hypoxia Is this a current diagnosis for this admission?: Yes (2) COPD exacerbation Is this a current diagnosis for this admission?: Yes (3) Hypokalemia Is this a current diagnosis for this admission?: Yes (4) Metabolic acidosis Is this a current diagnosis for this admission?: Yes (5) UTI (urinary tract infection) Is this a current diagnosis for this admission?: Yes (6) Diabetes mellitus type 2, controlled Is this a current diagnosis for this admission?: Yes (7) INÉS (obstructive sleep apnea) Is this a current diagnosis for this admission?: Yes (8) Opiate dependence, continuous Is this a current diagnosis for this admission?: Yes - Additional Information Resuscitation Status: Full Code Discharge Activity: Activity As Tolerated Home Medications: Albuterol Sulfate [Ventolin HFA MDI 18 GM] 1 puff IH Q4HP PRN 08/23/17 Ascorbic Acid [Vitamin C 500 mg Tablet] 500 mg PO BID 08/23/17 Aspirin [Ecotrin 81 mg EC Tablet] 81 mg PO DAILY 08/23/17 Atorvastatin Calcium [Lipitor 40 mg Tablet] 40 mg PO QHS 08/23/17 Budesonide [Pulmicort Neb 0.5 mg/2 ml Ampul] 2 ml NEB Q12 08/23/17 Cholecalciferol (Vitamin D3) [Vitamin D3] 5,000 unit PO DAILY 08/23/17 Cyanocobalamin (Vitamin B-12) [Vitamin B-12 500 mcg Tablet] 500 mcg PO BID 08/23 Esomeprazole Magnesium [Nexium] 40 mg PO DAILY 08/23/17 Fluticasone/Salmeterol [Advair 500-50 Diskus 14 Dose/Diskus] 1 puff IH Q12 08/23 Insulin Glargine,Hum.rec.anlog [Lantus Solostar] 15 units SQ QHS 08/23/17 Ipratropium/Albuterol Sulfate [Iprat-Albut 0.5-3(2.5) mg/3 ml] 3 ml NEB Q6 08/23 Iron Ps Complex/B12/Folic Acid [Poly-Iron 150 Forte Capsule] 1 cap PO BID Melatonin [Melatin] 3 mg PO QHS 08/23/17 Metoprolol Succinate [Toprol Xl 25 mg Tab.sr] 25 mg PO Q12 08/23/17 Nitroglycerin [Nitro-Dur 10 mg (0.4MG/Hr) Transdermal Patch] 1 patch TOP DAILY 08/23/17 Oxycodone HCl/Acetaminophen [Endocet 10-325 mg Tablet] 1 tab PO Q6HP PRN Potassium Chloride [Klor-Con 10 Meq Tablet.sa] 10 meq PO DAILY 08/23/17 Pregabalin [Lyrica] 50 mg PO Q8 08/23/17 Ranolazine [Ranexa 500 mg Tab.sr] 500 mg PO Q12 08/23/17 Roflumilast [Daliresp 500 mcg Tablet] 500 mcg PO QAM 08/23/17 Ropinirole HCl [Requip 2 mg Tablet] 2 mg PO QHS 08/23/17 Tiotropium Channing [Spiriva Handihaler 5 Cap/Kit (18 Mcg/Cap)] 1 puff IH DAILY 08/23/17 Torsemide [Demadex 20 mg Tablet] 20 mg PO QAM 08/23/17 Acetaminophen [Tylenol 325 mg Tablet] 650 mg NG Q4HP PRN tablet 09/14/17 Acetylcysteine [Mucomist 20% Soln 800 mg/4 mL] 600 mg NEB RTBID vial 09/14/17 Amox Tr/Potassium Clavulanate [Augmentin "500" Tablet] 1 tab PO Q8 8 Days tablet 09/14/17 Aspirin [Aspirin 81 mg Chewable Tablet] 81 mg NG DAILY tab.chew 09/14/17 Bisacodyl [Dulcolax 10 mg Supp.rect] 10 mg WA DAILYP PRN supp.rect 09/14/17 Budesonide [Pulmicort Neb 0.5 mg/2 ml Ampul] 0.5 mg NEB RTQ12 ampul.neb Enoxaparin Sodium [Lovenox Inj 40 mg/0.4 ml Disp.syrin] 40 mg SUBCUT DAILY disp.syrin 09/14/17 Glucagon,Human Recombinant [Glucagen Inj 1 mg Vial] 1 mg IM PRN PRN vial Insulin Lispro [Humalog Insulin (Lispro) 100 unit/mL] 0 - 12 unit SUBCUT ACHSP PRN unit 09/14/17 Lactulose [Cephulac Syrup 20 gm/30 ml Udcup] 20 gm PEG Q6HP PRN udc 09/14/17 Levalbuterol HCl [Xopenex Neb 1.25 mg/3 ml Ampul] 1.25 mg NEB RTQ4HP PRN vial.neb 09/14/17 Magnesium Oxide [Mag-Ox 400 mg Tablet] 400 mg PEG NOON tablet 09/14/17 Metoprolol Tartrate [Lopressor 25 mg Tablet] 25 mg NG Q12 tablet 09/14/17 Nystatin/Triamcin [Mycolog-II Ointment 15 gm] 1 applic TP DAILY tube 09/14/17 Oxycodone HCl [Oxy-Ir 5 mg Tablet] 5 mg NG Q6HP PRN tablet 09/14/17 History of Present Illness History of Present Illness: DAGO GRAFF is a 72 year old female with severe end-stage COPD. She was admitted on August 23 with acute hypoxic respiratory failure and was intubated. She remained intubated for approximately 2 weeks with failure to wean. Tracheostomy and PEG tube placement were performed on September 09, 2017. She developed some erythema and discharge from the trach site and was started on vancomycin. Culture grew staph aureus, methicillin sensitive. Vancomycin was switched to Augmentin. She is to get a 10 day course of antibiotics. She has been accepted at a term acute care facility and is stable for discharge. The patient has also developed some anasarca improved with IV Lasix. Hospital Course Hospital Course: See above. Physical Exam Vital Signs: Temp Pulse Resp BP Pulse Ox 98.8 F 78 13 96/48 L 100 09/14/17 10:39 09/14/17 10:00 09/14/17 10:39 09/14/17 10:39 09/14/17 11:57 Intake & Output 09/13/17 09/14/17 09/15/17 06:59 06:59 06:59 Intake Total 3060 7282 Output Total 9206 0445 350 Balance -2175 -2492 -350 Weight 85 kg 81.7 kg Additional comments: Elderly female lying in bed she is drowsy but arousable she has a trach and a PEG. Neck she has erythema and purulence around the trach site Lungs: Coarse breath sounds bilaterally no crackles heard Cardiac: S1-S2 regular, +++peripheral edema no cyanosis Abdomen: Soft, no focal tenderness, normal bowel sounds Results Laboratory Results: 09/14/17 05:25 09/14/17 05:25 09/14/17 09/14/17 05:25 05:25 WBC 9.1 RBC 4.28 Hgb 11.2 L Hct 34.0 L MCV 79 L MCH 26.1 L MCHC 32.9 RDW 18.6 H Plt Count 169 Sodium 143.4 Potassium 3.6 Chloride 107 Carbon Dioxide 27 Anion Gap 9 BUN 14 Creatinine 0.36 L Est GFR ( Amer) > 60 Est GFR (Non-Af Amer) > 60 Glucose 112 H Calcium 8.5 Phosphorus 3.9 Magnesium 2.0 Triglycerides 135 09/11/17 15:15 Trach Site Gram Stain - Final 09/11/17 15:15 Trach Site Wound Culture - Final Staphylococcus Aureus Skin Romi 08/24/17 08/25/17 09/12/17 06:30 05:20 05:40 Troponin I < 0.012 NT-Pro-B Natriuret Pep 795 4880 H 09/14/17 05:25 Troponin I NT-Pro-B Natriuret Pep 3020 H Impressions: KUB X-Ray 08/29/17 00:00 IMPRESSION: NG tube with its tip in the left upper quadrant presumably in the stomach. Chest X-Ray 09/13/17 06:00 IMPRESSION: No change in bibasilar airspace disease. Qualifiers PATEINT BEING DISCHARGED WITH ANY OF THE FOLLOWING DIAGNOSIS?: No Plan Time Spent: Greater than 30 Minutes
[2017-09-14] MEDS ORDERED: AMOXICILLIN TR/POT CLAVULANATE 500-125 MG TAB PO SCH (14:00)
[2017-09-14 14:53] VITALS: BP 115/46
--- NOTE | 2017-09-14 20:42 | PDOC PROGRESS REPORT ---
Subjective Progress Note for:: 09/13/17 Subjective:: intubated Reason For Visit: COPD EXACERBATION,PNEUMONIA,TOBACCO DEP Physical Exam Vital Signs: Temp Pulse Resp BP Pulse Ox 99.0 F 74 16 100/59 L 91 L 09/13/17 10:00 09/13/17 08:23 09/13/17 10:00 09/13/17 09:38 09/13/17 10:00 Intake & Output 09/12/17 09/13/17 09/14/17 06:59 06:59 06:59 Intake Total 2046 3065 Output Total 2875 5240 50 Balance -829 -2175 -50 Weight 88.2 kg 85 kg General appearance: PRESENT: no acute distress, disheveled, well-developed. ABSENT: mild distress, severe distress Head exam: PRESENT: atraumatic, normocephalic Eye exam: PRESENT: conjunctiva pale, EOMI. ABSENT: conjunctival injection, conjunctiva pink, nystagmus, periorbital swelling, scleral icterus Mouth exam: PRESENT: dry mucosa, tongue midline. ABSENT: laceration, moist Neck exam: ABSENT: carotid bruit, JVD, lymphadenopathy, thyromegaly, tracheal deviation, tracheostomy Respiratory exam: PRESENT: crackles, rhonchi, symmetrical, unlabored. ABSENT: accessory muscle use, chest wall tenderness, clear to auscultation [place], decreased breath sounds, prolonged expiratory phas, rales, retraction, stridor, tachypnea Cardiovascular exam: PRESENT: RRR, +S1, +S2 Pulses: PRESENT: normal radial pulses GI/Abdominal exam: PRESENT: diminished bowel sounds, soft Gentrourinary exam: PRESENT: indwelling catheter Extremities exam: ABSENT: clubbing, joint swelling Musculoskeletal exam: ABSENT: ambulatory, deformity, dislocation Neurological exam: PRESENT: awake. ABSENT: alert Psychiatric exam: PRESENT: flat affect Skin exam: PRESENT: dry, warm Results Laboratory Results: 09/13/17 05:00 09/13/17 05:00 09/13/17 09/13/17 09/13/17 05:00 05:00 05:00 WBC 9.3 RBC 4.18 Hgb 10.8 L Hct 32.9 L MCV 79 L MCH 25.9 L MCHC 32.9 RDW 18.5 H Plt Count 178 Seg Neutrophils % 90.6 H Lymphocytes % 6.3 L Monocytes % 2.8 L Eosinophils % 0.1 Basophils % 0.2 Absolute Neutrophils 8.5 H Absolute Lymphocytes 0.6 Absolute Monocytes 0.3 Absolute Eosinophils 0.0 Absolute Basophils 0.0 Carbonic Acid 0.76 L HCO3/H2CO3 Ratio 28:1 ABG pH 7.55 H ABG pCO2 25.3 L ABG pO2 69.8 L ABG HCO3 21.4 ABG O2 Saturation 96.1 ABG Base Excess 0.1 FiO2 75 Sodium 142.8 Potassium 3.5 L Chloride 110 H Carbon Dioxide 22 Anion Gap 11 BUN 13 Creatinine 0.35 L Est GFR ( Amer) > 60 Est GFR (Non-Af Amer) > 60 Glucose 157 H Calcium 8.3 L Magnesium 1.8 09/11/17 15:15 Trach Site Gram Stain - Final 09/11/17 15:15 Trach Site Wound Culture - Final Staphylococcus Aureus Skin Romi 09/11/17 16:50 Tracheal Aspirate Gram Stain - Final 09/11/17 16:50 Tracheal Aspirate Sputum Culture - Final Staphylococcus Aureus Normal Romi Absent 08/24/17 08/25/17 09/12/17 06:30 05:20 05:40 Troponin I < 0.012 NT-Pro-B Natriuret Pep 795 4880 H Impressions: KUB X-Ray 08/29/17 00:00 IMPRESSION: NG tube with its tip in the left upper quadrant presumably in the stomach. Chest X-Ray 09/13/17 06:00 IMPRESSION: No change in bibasilar airspace disease. Assessment & Plan - Diagnosis (1) Acute respiratory failure with hypoxia Is this a current diagnosis for this admission?: Yes Plan: d 12 intubation needs trach and PEG min volume same (2) INÉS (obstructive sleep apnea) Is this a current diagnosis for this admission?: Yes Plan: after extubation NIPPV (3) Acute and chronic respiratory failure with hypercapnia Is this a current diagnosis for this admission?: Yes Plan: try to sustain baseline hypercapnia (4) GERD (gastroesophageal reflux disease) Qualifiers: Esophagitis presence: without esophagitis Qualified Code(s): K21.9 - Gastro -esophageal reflux disease without esophagitis Is this a current diagnosis for this admission?: Yes Plan: ppi (5) Opiate dependence, continuous Is this a current diagnosis for this admission?: Yes Plan: minimal support (6) CHF (congestive heart failure) Qualifiers: Congestive heart failure type: unspecified congestive heart failure type Congestive heart failure chronicity: chronic Is this a current diagnosis for this admission?: Yes Plan: unchanged (7) Pulmonary hypertension Is this a current diagnosis for this admission?: Yes Plan: INÉS chronic hypoxia (8) Tobacco dependency Is this a current diagnosis for this admission?: Yes Plan: transdermal nicotine - Time Total Critical Time (Minutes): 40
--- NOTE | 2017-09-14 20:45 | PDOC PROGRESS REPORT ---
Subjective Progress Note for:: 09/14/17 Subjective:: intubated Reason For Visit: COPD EXACERBATION,PNEUMONIA,TOBACCO DEP Physical Exam Vital Signs: Temp Pulse Resp BP Pulse Ox 97.7 F 56 L 20 122/44 L 94 09/14/17 08:00 09/14/17 08:14 09/14/17 08:14 09/14/17 08:00 09/14/17 08:14 Intake & Output 09/13/17 09/14/17 09/15/17 06:59 06:59 06:59 Intake Total 3065 2388 Output Total 5240 4885 175 Balance -2175 -2497 -175 Weight 85 kg 81.7 kg General appearance: PRESENT: no acute distress, disheveled. ABSENT: mild distress, morbidly obese, obese, severe distress Head exam: PRESENT: atraumatic, normocephalic Eye exam: PRESENT: conjunctiva pale, EOMI. ABSENT: conjunctival injection, conjunctiva pink, nystagmus, periorbital swelling, scleral icterus Mouth exam: PRESENT: dry mucosa, neck supple. ABSENT: laceration, moist, tongue midline Neck exam: PRESENT: tracheostomy. ABSENT: tracheal deviation Pulses: PRESENT: normal radial pulses GI/Abdominal exam: PRESENT: diminished bowel sounds, soft Extremities exam: ABSENT: clubbing, joint swelling Musculoskeletal exam: ABSENT: ambulatory, deformity, dislocation Neurological exam: PRESENT: awake Skin exam: PRESENT: dry, warm Results Laboratory Results: 09/14/17 05:25 09/14/17 05:25 09/14/17 09/14/17 05:25 05:25 WBC 9.1 RBC 4.28 Hgb 11.2 L Hct 34.0 L MCV 79 L MCH 26.1 L MCHC 32.9 RDW 18.6 H Plt Count 169 Sodium 143.4 Potassium 3.6 Chloride 107 Carbon Dioxide 27 Anion Gap 9 BUN 14 Creatinine 0.36 L Est GFR ( Amer) > 60 Est GFR (Non-Af Amer) > 60 Glucose 112 H Calcium 8.5 Phosphorus 3.9 Magnesium 2.0 Triglycerides 135 09/11/17 15:15 Trach Site Gram Stain - Final 09/11/17 15:15 Trach Site Wound Culture - Final Staphylococcus Aureus Skin Romi 09/11/17 16:50 Tracheal Aspirate Gram Stain - Final 09/11/17 16:50 Tracheal Aspirate Sputum Culture - Final Staphylococcus Aureus Normal Romi Absent 08/24/17 08/25/17 09/12/17 06:30 05:20 05:40 Troponin I < 0.012 NT-Pro-B Natriuret Pep 795 4880 H 09/14/17 05:25 Troponin I NT-Pro-B Natriuret Pep 3020 H Impressions: KUB X-Ray 08/29/17 00:00 IMPRESSION: NG tube with its tip in the left upper quadrant presumably in the stomach. Chest X-Ray 09/13/17 06:00 IMPRESSION: No change in bibasilar airspace disease. Assessment & Plan - Diagnosis (1) Acute respiratory failure with hypoxia Is this a current diagnosis for this admission?: Yes Plan: d 12 intubation needs trach and PEG min volume same (2) INÉS (obstructive sleep apnea) Is this a current diagnosis for this admission?: Yes Plan: after extubation NIPPV (3) Acute and chronic respiratory failure with hypercapnia Is this a current diagnosis for this admission?: Yes Plan: try to sustain baseline hypercapnia (4) GERD (gastroesophageal reflux disease) Qualifiers: Esophagitis presence: without esophagitis Qualified Code(s): K21.9 - Gastro -esophageal reflux disease without esophagitis Is this a current diagnosis for this admission?: Yes Plan: ppi (5) Opiate dependence, continuous Is this a current diagnosis for this admission?: Yes Plan: minimal support (6) CHF (congestive heart failure) Qualifiers: Congestive heart failure type: unspecified congestive heart failure type Congestive heart failure chronicity: chronic Is this a current diagnosis for this admission?: Yes Plan: unchanged (7) Pulmonary hypertension Is this a current diagnosis for this admission?: Yes Plan: INÉS chronic hypoxia (8) Tobacco dependency Is this a current diagnosis for this admission?: Yes Plan: transdermal nicotine - Time Total Critical Time (Minutes): 35
== END 2017-09-14 14:45 | DRG 4 ==
LOC: ER 13:07 → EH 15:24 → ICU 16:42
PROVIDERS: ADMIT Internal Medicine; ATTEND Internal Medicine
PROC: 5A1955Z Respiratory Ventilation, Greater than 96 Consecutive Hours (ICD-10-PCS; 2017-08-23)
PROC: 0BH17EZ Insertion of Endotracheal Airway into Trachea, Via Natural or Artificial Opening (ICD-10-PCS; 2017-08-23)
PROC: 0DH64UZ Insertion of Feeding Device into Stomach, Percutaneous Endoscopic Approach (ICD-10-PCS; 2017-09-09)
PROC: 0B110F4 Bypass Trachea to Cutaneous with Tracheostomy Device, Open Approach (ICD-10-PCS; principal; 2017-09-09 12:00)
DX: J96.21 Acute and chronic respiratory failure with hypoxia (principal); J18.9 Pneumonia, unspecified organism; J44.1 Chronic obstructive pulmonary disease with (acute) exacerbation; E87.2 Acidosis; N39.0 Urinary tract infection, site not specified; J44.0 Chronic obstructive pulmonary disease with (acute) lower respiratory infection; T81.4XXA Infection following a procedure, initial encounter; J96.22 Acute and chronic respiratory failure with hypercapnia; Y84.8 Other medical procedures as the cause of abnormal reaction of the patient, or of later complication, without mention of misadventure at the time of the procedure; E87.6 Hypokalemia; E11.9 Type 2 diabetes mellitus without complications; I11.0 Hypertensive heart disease with heart failure; G47.33 Obstructive sleep apnea (adult) (pediatric); I25.10 Atherosclerotic heart disease of native coronary artery without angina pectoris; L40.9 Psoriasis, unspecified; M19.90 Unspecified osteoarthritis, unspecified site; B96.20 Unspecified Escherichia coli [E. coli] as the cause of diseases classified elsewhere; F32.9 Major depressive disorder, single episode, unspecified; I27.20 Pulmonary hypertension, unspecified; K21.9 Gastro-esophageal reflux disease without esophagitis; R60.1 Generalized edema; F17.210 Nicotine dependence, cigarettes, uncomplicated; J20.9 Acute bronchitis, unspecified; F41.9 Anxiety disorder, unspecified; K59.00 Constipation, unspecified; D69.2 Other nonthrombocytopenic purpura; I50.9 Heart failure, unspecified; B95.61 Methicillin susceptible Staphylococcus aureus infection as the cause of diseases classified elsewhere; Z51.5 Encounter for palliative care; Z79.891 Long term (current) use of opiate analgesic; Z78.1 Physical restraint status; Z86.11 Personal history of tuberculosis; Z79.82 Long term (current) use of aspirin; Z79.84 Long term (current) use of oral hypoglycemic drugs; Z79.899 Other long term (current) drug therapy; Z86.14 Personal history of Methicillin resistant Staphylococcus aureus infection; Z79.52 Long term (current) use of systemic steroids; Z95.1 Presence of aortocoronary bypass graft; Z86.19 Personal history of other infectious and parasitic diseases; Z90.710 Acquired absence of both cervix and uterus; Z88.1 Allergy status to other antibiotic agents; Z82.49 Family history of ischemic heart disease and other diseases of the circulatory system; Z83.3 Family history of diabetes mellitus; Z99.81 Dependence on supplemental oxygen
CPT/HCPCS: 00320; 36415; 36600; 71010; 71045; 74000; 74018; 80048; 80053; 80202; 81001; 82140; 82271; 82803; 82962; 83605; 83735; 83880; 84100; 84478; 84484; 85025; 85027; 85610; 85730; 87040; 87070; 87077; 87086; 87088; 87186; 87205; 87804; 93005; 93010; 94002; 94003; 94640; 94668; 96374; 99291; 99292; G8978-GP; G8979-GP; J0330; J0456; J0690; J0696; J1200; J1644; J1650; J1815; J1940; J2250; J2405; J2704; J2765; J2920; J2930; J3010; J3370; J3475; J3480; J3490; J7030; J7060; J7620; S0164

== ENCOUNTER 2017-12-23 11:02 | Inpatient (IN) | payer MEDICARE, MEDICAID ==
[2017-12-23] MEDS ORDERED: CEFTRIAXONE 1 GM/D5W RTU 1 GM/50 ML RTUPB IV ONE (11:29)
--- NOTE | 2017-12-23 11:32 | ER Document Report ---
ED General - General Chief Complaint: Shortness Of Breath Stated Complaint: SHORTNESS OF BREATH Time Seen by Provider: 12/23/17 11:26 Mode of Arrival: Medic Information source: Patient Notes: 72-year-old female history of trach presents from home with increased cough fever shortness of breath. Patient noted to be febrile 102.7 given Tylenol by EMS TRAVEL OUTSIDE OF THE [place] IN LAST 30 DAYS: No - HPI Onset: Last week Onset/Duration: Persistent, Worse Quality of pain: No pain Severity: Moderate Pain Level: Denies Associated symptoms: Productive cough, Fever, Shortness of breath Exacerbated by: Coughing Relieved by: Denies Similar symptoms previously: Yes Recently seen / treated by doctor: Yes - Related Data Allergies/Adverse Reactions: vancomycin Allergy (Verified 12/23/17 11:25) Generalized Itching levofloxacin Adverse Reaction (Verified 12/23/17 11:25) Diarrhea linezolid [From Zyvox] Adverse Reaction (Verified 12/23/17 11:25) Diarrhea Past Medical History - Social History Smoking Status: Former Smoker Cigarette use (# per day): No Chew tobacco use (# tins/day): No Smoking Education Provided: No Family History: CAD, DM, Hypertension - Past Medical History Cardiac Medical History: Reports: Hx Coronary Artery Disease - CABG, Hx Hypercholesterolemia - zocor , Hx Hypertension Pulmonary Medical History: Reports: Hx Asthma, Hx Bronchitis, Hx COPD, Hx Pneumonia - MRSA 2014 , Hx Sleep Apnea - bipap , Hx Tuberculosis - +PPD in s - on meds x 1 year Neurological Medical History: Endocrine Medical History: Reports: Hx Diabetes Mellitus Type 1, Hx Diabetes Mellitus Type 2 Renal/ Medical History: Reports: Hx End Stage Renal Disease. Denies: Hx Peritoneal Dialysis Malignancy Medical History: GI Medical History: Reports: Hx Gastroesophageal Reflux Disease. Denies: Hx Crohn's Disease, Hx Ulcerative Colitis Musculoskeltal Medical History: Reports Hx Arthritis Skin Medical History: Reports Hx Psoriasis Psychiatric Medical History: Reports: Hx Anxiety, Hx Depression Traumatic Medical History: Reports: Hx Fractures - lumbar . Denies: Hx Traumatic Brain Injury Infectious Medical History: Reports: Hx MRSA - Reported MRSA pneumonia, 2014 Past Surgical History: Reports: Hx Appendectomy, Hx Bowel Surgery, Hx Cardiac Surgery - CABGx2, Hx Cholecystectomy, Hx Coronary Artery Bypass Graft - 2009 x 2 grafts , Hx Hysterectomy, Hx Open Heart Surgery - 3v, Hx Orthopedic Surgery - Left footsurgery, cyst removal from left hand, Hx Tonsillectomy - Immunizations Hx Diphtheria, Pertussis, Tetanus Vaccination: Yes Hx Pneumococcal Vaccination: 08/26/12 Review of Systems - Review of Systems Notes: REVIEW OF SYSTEMS: CONSTITUTIONAL : Admits to fevers EENT: Denies eye, ear, throat, or mouth pain or symptoms. Denies nasal or sinus congestion or discharge. Denies throat, tongue, or mouth swelling or difficulty swallowing. CARDIOVASCULAR: Denies chest pain. Denies palpitations or racing or irregular heart beat. Denies ankle edema. RESPIRATORY: Admits to cough congestion GASTROINTESTINAL: Denies abdominal pain or distention. Denies nausea, vomiting , or diarrhea. Denies blood in vomitus, stools, or per rectum. Denies black, tarry stools. Denies constipation. GENITOURINARY: Denies difficulty urinating, painful urination, burning, frequency, blood in urine, or discharge. FEMALE GENITOURINARY: Denies vaginal bleeding, heavy or abnormal periods, irregular periods. Denies vaginal discharge or odor. MUSCULOSKELETAL: Denies back or neck pain or stiffness. Denies joint pain or swelling. SKIN: Denies rash, lesions or sores. HEMATOLOGIC : Denies easy bruising or bleeding. LYMPHATIC: Denies swollen, enlarged glands. NEUROLOGICAL: Denies confusion or altered mental status. Denies passing out or loss of consciousness. Denies dizziness or lightheadedness. Denies headache. Denies weakness or paralysis or loss of use of either side. Denies problems with gait or speech. Denies sensory loss, numbness, or tingling. Denies seizures. PSYCHIATRIC: Denies anxiety or stress. Denies depression, suicidal ideation, or homicidal ideation. ALL OTHER SYSTEMS REVIEWED AND NEGATIVE. PHYSICAL EXAMINATION: GENERAL: Chronically ill-appearing female HEAD: Atraumatic, normocephalic. EYES: Pupils equal round and reactive to light, extraocular movements intact, conjunctiva are normal. ENT: Nares patent, oropharynx clear without exudates. Moist mucous membranes. Trach in place NECK: Normal range of motion, supple without lymphadenopathy LUNGS: Coarse rhonchi right base HEART: Tachycardic s ABDOMEN: Soft, nontender, nondistended abdomen. No guarding, no rebound. No masses appreciated. Female : deferred Musculoskeletal: Normal range of motion, no pitting or edema. No cyanosis. NEUROLOGICAL: Cranial nerves grossly intact. Normal speech, normal gait. Normal sensory, motor exams PSYCH: Normal mood, normal affect. SKIN: Hot to touch Dictation was performed using [employer] voice recognition software Physical Exam - Vital signs Vitals: Resp 26 H 12/23/17 11:15 Course - Re-evaluation Re-evalutation: 12/23/17 11:31 Patient meets sirs criteria probable pneumonia, lab work imaging pending EKG notes sinus tachycardia 12/23/17 13:03 Chest x-ray itself does not show pneumonia however I do believe pneumonia is present, patient was already given antibiotics IV fluids will be admitted, lactate was elevated - Vital Signs Vital signs: Temp Pulse Resp BP Pulse Ox 102.1 F H 15 106/48 L 96 12/23/17 11:23 12/23/17 12:21 12/23/17 12:21 12/23/17 12:21 - Laboratory Result Diagrams: 12/23/17 11:10 12/23/17 11:10 Laboratory results interpreted by me: 12/23/17 12/23/17 12/23/17 11:10 11:10 11:10 RDW 16.8 H BUN 23 H Glucose 146 H Lactic Acid 3.2 H Urine Blood 12/23/17 12:23 RDW BUN Glucose Lactic Acid Urine Blood SMALL H Critical Care Note - Critical Care Note Total time excluding time spent on procedures (mins): 38 Comments: 38 minutes of critical care time spent in direct contact evaluating and reevaluating the patient, treating symptoms, reviewing labs and studies and speaking with family and consultants excluding any procedures Discharge - Discharge Clinical Impression: Acute respiratory failure with hypoxia, Tracheostomy care Sepsis Qualifiers: Sepsis type: sepsis due to unspecified organism Qualified Code(s): A41.9 - Sepsis, unspecified organism Pneumonia Qualifiers: Pneumonia type: due to unspecified organism Laterality: unspecified laterality Lung location: unspecified part of lung Qualified Code(s): J18.9 - Pneumonia, unspecified organism Condition: Fair Disposition: ADMITTED INPATIENT Admitting Provider: Hospitalist Unit Admitted: [facility]
[2017-12-23 11:34] LABS: ABSOLUTE BASOPHILS # (AUTO) 0.1 10^3/uL (0.0-0.2); ABSOLUTE EOSINOPHILS # (AUTO) 0.1 10^3/uL (0.0-0.6); ABSOLUTE LYMPHOCYTES (AUTO) 1.3 10^3/uL (0.5-4.7); ABSOLUTE MONOCYTES (AUTO) 0.6 10^3/uL (0.1-1.4); ABSOLUTE NEUT (AUTO) 6.9 10^3/uL (1.7-8.2); BASOPHILS % (AUTO) 0.9 % (0-2); EOSINOPHILS % (AUTO) 0.7 % (0-6); HEMATOCRIT 37.7 % (36.0-47.0); HEMOGLOBIN 12.1 g/dL (12.0-15.5); LYMPHOCYTES % (AUTO) 14.4 % (13-45); MEAN CORPUSCULAR HEMOGLOBIN 27.7 pg (27.0-33.4); MEAN CORPUSCULAR HGB CONC 32.2 g/dL (32.0-36.0); MEAN CORPUSCULAR VOLUME 86 fl (80-97); MONOCYTES % (AUTO) 7.1 % (3-13); PLATELET COUNT 226 10^3/uL (150-450); RED BLOOD COUNT 4.37 10^6/uL (3.72-5.28); RED CELL DISTRIBUTION WIDTH 16.8 % (11.5-14.0); SEGMENTED NEUTROPHILS % (AUTO) 76.9 % (42-78); TOTAL CELLS COUNTED % (AUTO) 100 %
[2017-12-23 11:39] LABS: ALANINE AMINOTRANSFERASE 31 U/L (9-52); ALBUMIN 4.2 g/dL (3.5-5.0); ALKALINE PHOSPHATASE 46 U/L (38-126); ANION GAP 14 (5-19); ASPARTATE AMINO TRANSFERASE 29 U/L (14-36); BILIRUBIN,DIRECT 0.4 mg/dL (0.0-0.4); BILIRUBIN,TOTAL 0.5 mg/dL (0.2-1.3); BLOOD UREA NITROGEN 23 mg/dL (7-20); CALCIUM 9.1 mg/dL (8.4-10.2); CARBON DIOXIDE 24 mmol/L (22-30); CHLORIDE 103 mmol/L (98-107); GLUCOSE 146 mg/dL (75-110); POTASSIUM 4.3 mmol/L (3.6-5.0); SODIUM 140.8 mmol/L (137-145); TOTAL PROTEIN 6.9 g/dL (6.3-8.2)
[2017-12-23] MEDS ORDERED: CEFTRIAXONE INJ 1000 MG VIAL IV ONE (11:45)
[2017-12-23 11:53] LABS: INTERNATIONAL RATION (INR) 0.99; PROTHROMBIN TIME 13.6 SEC (11.4-15.4)
--- NOTE | 2017-12-23 12:00 | RADIOLOGY REPORT (SQ) ---
EXAM DESCRIPTION: CHEST SINGLE VIEW COMPLETED DATE/TIME: 12/23/2017 11:36 am REASON FOR STUDY: bed 18 sepsis protocol COMPARISON: 09/13/2017 EXAM PARAMETERS: NUMBER OF VIEWS: One view. TECHNIQUE: Single frontal radiographic view of the chest acquired. RADIATION DOSE: NA LIMITATIONS: None. FINDINGS: LUNGS AND PLEURA: No opacities, masses or pneumothorax. No pleural effusion. MEDIASTINUM AND HILAR STRUCTURES: No masses. Contour normal. HEART AND VASCULAR STRUCTURES: Heart normal in size. Normal vasculature. BONES: No acute findings. HARDWARE: Sternotomy wires. Tracheostomy tube. OTHER: No other significant finding. IMPRESSION: NO ACUTE RADIOGRAPHIC FINDING IN THE CHEST. TECHNICAL DOCUMENTATION: JOB ID: [id number] [employer]- All Rights Reserved Reading location - IP/workstation name: [email or web address]
[2017-12-23] MEDS: NORMAL SALINE 1000 ML 1,000 ML IV PRN ×4 (12:18→13:29)
[2017-12-23 12:41] LABS: APPEARANCE,URINE SLIGHTLY-CLOUDY; BILIRUBIN,URINE NEGATIVE (NEGATIVE); COLOR,URINE YELLOW; GLUCOSE, URINE NEGATIVE (NEGATIVE); KETONES,URINE NEGATIVE (NEGATIVE); LEUKOCYTE ESTERASE,URINE NEGATIVE (NEGATIVE); NITRITE,URINE NEGATIVE (NEGATIVE); PROTEIN,URINE NEGATIVE (NEGATIVE); URINE SPECIFIC GRAVITY 1.018; UROBILINOGEN,URINE NEGATIVE mg/dL (<2.0)
--- NOTE | 2017-12-23 13:02 | EKG REPORT ---
SEVERITY:- ABNORMAL ECG - SINUS TACHYCARDIA ABNORMAL T, CONSIDER ISCHEMIA, LATERAL LEADS : Confirmed by: Osiris Rider 23-Dec-2017 13:01:25
[2017-12-23] MEDS ORDERED: IPRATROPIUM/ALBUTEROL 0.5-2.5 MG/3 ML AMPUL NEB PRN (13:12)
[2017-12-23] MEDS ORDERED: METHYLPREDNISOLONE INJ 125 MG/2 ML SDV IV ONE (13:20)
[2017-12-23 13:46] LABS: VENOUS BLOOD BASE EXCESS -4.4 mmol/L; VENOUS BLOOD PCO2 45.5 mmHg (35-63); VENOUS BLOOD PH 7.3 (7.30-7.42)
[2017-12-23] MEDS ORDERED: DEXTROSE 50%-WATER 25 GM/50 ML DISP.SYRIN IV PRN ×2 (13:46)
[2017-12-23] MEDS ORDERED: DEXTROSE 40% GEL 15 GM TUBE PO PRN ×2 (13:46)
[2017-12-23] MEDS ORDERED: GLUCAGON,HUMAN RECOMB 1 MG INJ IM PRN (13:46)
--- NOTE | 2017-12-23 14:06 | PDOC H&P ---
History of Present Illness Admission Date/PCP: TYSON ROLDAN MD Patient complains of: Not feeling well History of Present Illness: DAGO GRAFF is a 72 year old female with advanced COPD. She has a tracheostomy with a trach collar. She continues to smoke. She was discharged to rehab end of August following a long stay that included being intubated for 2 weeks. A trach and a PEG were placed during that admission. She reports feeling poorly for the last 3 days. Reports increased purulent phlegm from her tracheostomy. She was noted to have a temperature of 102+ by EMS, though she did not feel feverish or had chills. She denies any nausea vomiting diarrhea. She denies any chest pain, no myalgias, no hemoptysis. Past Medical History Cardiac Medical History: Reports: Coronary Artery Disease - CABG, Hyperlipidema - zocor , Hypertension Pulmonary Medical History: Reports: Asthma, Bronchitis, Chronic Obstructive Pulmonary Disease (COPD), Intubation, Pneumonia - MRSA 2014 , Sleep Apnea - bipap , Tuberculosis - +PPD in s - on meds x 1 year EENT History Note: Tracheostomy during her last admission Neurological Medical History: Endocrine Medical History: Reports: Diabetes Mellitus Type 2 Malignancy Medical History: GI Medical History: Reports: Gastroesophageal Reflux Disease Denies: Crohn's Disease, Ulcerative Colitis Musculoskeltal Medical History: Reports: Arthritis Skin Medical History: Reports: Psoriasis Psychiatric Medical History: Reports: Depression Traumatic Medical History: Denies: Traumatic Brain Injury Hematology: Reports: Anemia Denies: Hemophilia, Sickle Cell Disease Infectious Medical History: Reports: 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 MRSA pneumonia, 2014 Infectious History Note: Her last admission she had an infection around her trach that grew out MSSA Past Surgical History Past Surgical History: Reports: Appendectomy, Cholecystectomy, Coronary Artery Bypass Graft - 2008 x 2 grafts , Hysterectomy, Orthopedic Surgery - Left footsurgery, cyst removal from left hand, Tonsillectomy, Other - Tracheostomy and PEG tube placement last admission Denies: Amputation Social History Information Source: Patient, [facility] Records Smoking Status: Current Every Day Smoker Frequency of Alcohol Use: None Hx Recreational Drug Use: No Drugs: None Hx Prescription Drug Abuse: No - Advance Directive Resuscitation Status: Full Code Surrogate healthcare decision maker:: Family History Family History: CAD, DM, Hypertension Parental Family History Reviewed: Yes Children Family History Reviewed: No Sibling(s) Family History Reviewed.: No Medication/Allergy Home Medications: Albuterol Sulfate [Ventolin HFA MDI 18 GM] 1 puff IH Q4HP PRN 08/23/17 Ascorbic Acid [Vitamin C 500 mg Tablet] 500 mg PO BID 08/23/17 Aspirin [Ecotrin 81 mg EC Tablet] 81 mg PO DAILY 08/23/17 Atorvastatin Calcium [Lipitor 40 mg Tablet] 40 mg PO QHS 08/23/17 Budesonide [Pulmicort Neb 0.5 mg/2 ml Ampul] 2 ml NEB Q12 08/23/17 Cholecalciferol (Vitamin D3) [Vitamin D3] 5,000 unit PO DAILY 08/23/17 Cyanocobalamin (Vitamin B-12) [Vitamin B-12 500 mcg Tablet] 500 mcg PO BID 08/23 Esomeprazole Magnesium [Nexium] 40 mg PO DAILY 08/23/17 Fluticasone/Salmeterol [Advair 500-50 Diskus 14 Dose/Diskus] 1 puff IH Q12 08/23 Insulin Glargine,Hum.rec.anlog [Lantus Solostar] 15 units SQ QHS 08/23/17 Ipratropium/Albuterol Sulfate [Iprat-Albut 0.5-3(2.5) mg/3 ml] 3 ml NEB Q6 08/23 Iron Ps Complex/B12/Folic Acid [Poly-Iron 150 Forte Capsule] 1 cap PO BID Melatonin [Melatin] 3 mg PO QHS 08/23/17 Metoprolol Succinate [Toprol Xl 25 mg Tab.sr] 25 mg PO Q12 08/23/17 Nitroglycerin [Nitro-Dur 10 mg (0.4MG/Hr) Transdermal Patch] 1 patch TOP DAILY 08/23/17 Oxycodone HCl/Acetaminophen [Endocet 10-325 mg Tablet] 1 tab PO Q6HP PRN Potassium Chloride [Klor-Con 10 Meq Tablet.sa] 10 meq PO DAILY 08/23/17 Pregabalin [Lyrica] 50 mg PO Q8 08/23/17 Ranolazine [Ranexa 500 mg Tab.sr] 500 mg PO Q12 08/23/17 Roflumilast [Daliresp 500 mcg Tablet] 500 mcg PO QAM 08/23/17 Ropinirole HCl [Requip 2 mg Tablet] 2 mg PO QHS 08/23/17 Tiotropium Axtell [Spiriva Handihaler 5 Cap/Kit (18 Mcg/Cap)] 1 puff IH DAILY 08/23/17 Torsemide [Demadex 20 mg Tablet] 20 mg PO QAM 08/23/17 Acetaminophen [Tylenol 325 mg Tablet] 650 mg NG Q4HP PRN tablet 09/14/17 Acetylcysteine [Mucomist 20% Soln 800 mg/4 mL] 600 mg NEB RTBID vial 09/14/17 Amox Tr/Potassium Clavulanate [Augmentin "500" Tablet] 1 tab PO Q8 8 Days tablet 09/14/17 Aspirin [Aspirin 81 mg Chewable Tablet] 81 mg NG DAILY tab.chew 09/14/17 Bisacodyl [Dulcolax 10 mg Supp.rect] 10 mg MN DAILYP PRN supp.rect 09/14/17 Budesonide [Pulmicort Neb 0.5 mg/2 ml Ampul] 0.5 mg NEB RTQ12 ampul.neb Enoxaparin Sodium [Lovenox Inj 40 mg/0.4 ml Disp.syrin] 40 mg SUBCUT DAILY disp.syrin 09/14/17 Glucagon,Human Recombinant [Glucagen Inj 1 mg Vial] 1 mg IM PRN PRN vial Insulin Lispro [Humalog Insulin (Lispro) 100 unit/mL] 0 - 12 unit SUBCUT ACHSP PRN unit 09/14/17 Lactulose [Cephulac Syrup 20 gm/30 ml Udcup] 20 gm PEG Q6HP PRN udc 09/14/17 Levalbuterol HCl [Xopenex Neb 1.25 mg/3 ml Ampul] 1.25 mg NEB RTQ4HP PRN vial.neb 09/14/17 Magnesium Oxide [Mag-Ox 400 mg Tablet] 400 mg PEG NOON tablet 09/14/17 Metoprolol Tartrate [Lopressor 25 mg Tablet] 25 mg NG Q12 tablet 09/14/17 Nystatin/Triamcin [Mycolog-II Ointment 15 gm] 1 applic TP DAILY tube 09/14/17 Oxycodone HCl [Oxy-Ir 5 mg Tablet] 5 mg NG Q6HP PRN tablet 09/14/17 Allergies/Adverse Reactions: vancomycin Allergy (Verified 12/23/17 11:25) Generalized Itching levofloxacin Adverse Reaction (Verified 12/23/17 11:25) Diarrhea linezolid [From Zyvox] Adverse Reaction (Verified 12/23/17 11:25) Diarrhea Review of Systems All systems: reviewed and no additional remarkable complaints except as stated Physical Exam Vital Signs: Temp Pulse Resp BP Pulse Ox 102.1 F H 15 106/48 L 96 12/23/17 11:23 12/23/17 12:21 12/23/17 12:21 12/23/17 12:21 Intake & Output 12/22/17 12/23/17 12/24/17 06:59 06:59 06:59 Weight 181 lb 10.574 oz General appearance: PRESENT: disheveled, mild distress, obese Neck exam: PRESENT: tracheostomy - With some purulent phlegm Respiratory exam: PRESENT: wheezes - Bilateral expiratory Cardiovascular exam: PRESENT: RRR GI/Abdominal exam: PRESENT: soft, other - PEG tube in place, no evidence of infection Neurological exam: PRESENT: alert Psychiatric exam: PRESENT: appropriate affect Skin exam: PRESENT: warm Results Laboratory Results: 12/23/17 11:10 12/23/17 11:10 12/23/17 12/23/17 12/23/17 11:10 11:10 11:10 WBC 9.0 RBC 4.37 Hgb 12.1 Hct 37.7 MCV 86 MCH 27.7 MCHC 32.2 RDW 16.8 H Plt Count 226 Seg Neutrophils % 76.9 Lymphocytes % 14.4 Monocytes % 7.1 Eosinophils % 0.7 Basophils % 0.9 Absolute Neutrophils 6.9 Absolute Lymphocytes 1.3 Absolute Monocytes 0.6 Absolute Eosinophils 0.1 Absolute Basophils 0.1 VBG pH VBG pCO2 VBG HCO3 VBG Base Excess Sodium 140.8 Potassium 4.3 Chloride 103 Carbon Dioxide 24 Anion Gap 14 BUN 23 H Creatinine 0.78 Est GFR ( Amer) > 60 Est GFR (Non-Af Amer) > 60 Glucose 146 H Lactic Acid 3.2 H Calcium 9.1 Total Bilirubin 0.5 AST 29 ALT 31 Alkaline Phosphatase 46 Total Protein 6.9 Albumin 4.2 Urine Color Urine Appearance Urine pH Ur Specific [place] Urine Protein Urine Glucose (UA) Urine Ketones Urine Blood Urine Nitrite Ur Leukocyte Esterase Urine WBC (Auto) Urine RBC (Auto) 12/23/17 12/23/17 11:10 12:23 WBC RBC Hgb Hct MCV MCH MCHC RDW Plt Count Seg Neutrophils % Lymphocytes % Monocytes % Eosinophils % Basophils % Absolute Neutrophils Absolute Lymphocytes Absolute Monocytes Absolute Eosinophils Absolute Basophils VBG pH Cancelled VBG pCO2 Cancelled VBG HCO3 Cancelled VBG Base Excess Cancelled Sodium Potassium Chloride Carbon Dioxide Anion Gap BUN Creatinine Est GFR ( Amer) Est GFR (Non-Af Amer) Glucose Lactic Acid Calcium Total Bilirubin AST ALT Alkaline Phosphatase Total Protein Albumin Urine Color YELLOW Urine Appearance SLIGHTLY-CLOUDY Urine pH 5.0 Ur Specific [place] 1.018 Urine Protein NEGATIVE Urine Glucose (UA) NEGATIVE Urine Ketones NEGATIVE Urine Blood SMALL H Urine Nitrite NEGATIVE Ur Leukocyte Esterase NEGATIVE Urine WBC (Auto) 1 Urine RBC (Auto) 1 Impressions: Chest X-Ray 12/23/17 11:23 IMPRESSION: NO ACUTE RADIOGRAPHIC FINDING IN THE CHEST. Assessment & Plan - Diagnosis (1) Acute respiratory failure with hypoxia Is this a current diagnosis for this admission?: Yes (2) COPD exacerbation Is this a current diagnosis for this admission?: Yes Plan: Steroids, nebulizers, empiric antibiotics, aggressive pulmonary toilet, wean oxygen as tolerated (3) Chronic hypoxemic respiratory failure Is this a current diagnosis for this admission?: Yes (4) Opiate dependence, continuous Is this a current diagnosis for this admission?: Yes (5) Diabetes mellitus type 2, controlled Qualifiers: Diabetes mellitus remote computer terminal operator insulin use: with mcc use Diabetes mellitus complication status: without complication Qualified Code(s): E11.9 - Type 2 diabetes mellitus without complications; Z79.4 - [facility] (current) use of insulin; Z79.4 - [facility] (current) use of insulin; 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
[2017-12-23] MEDS ORDERED: ENOXAPARIN SODIUM INJ 40 MG/0.4 ML DISP.SYRIN SUBCUT ONE (16:00)
[2017-12-23] MEDS: IPRATROPIUM/ALBUTEROL 0.5-2.5 MG/3 ML AMPUL NEB SCH ×2 (16:24→20:16)
[2017-12-23] MEDS: AZITHROMYCIN 500 MG in DEXTROSE 5%-WATER 250 ML IV SCH (18:37)
[2017-12-23] MEDS: INSULIN LISPRO 100 UNIT/ML 3 ML VIAL SUBCUT PRN (22:14)
[2017-12-24] MEDS: IPRATROPIUM/ALBUTEROL 0.5-2.5 MG/3 ML AMPUL NEB SCH ×4 (08:33→20:41)
[2017-12-24] MEDS ORDERED: CEFTRIAXONE 1 GM/D5W RTU 50 ML IV SCH (10:00)
[2017-12-24] MEDS ORDERED: PREDNISONE 20 MG TABLET PO SCH (10:00)
[2017-12-24] MEDS: ENOXAPARIN SODIUM INJ 40 MG/0.4 ML DISP.SYRIN SUBCUT SCH (10:04)
[2017-12-24] MEDS: CEFTRIAXONE SODIUM 1,000 MG in DEXTROSE 5%-WATER 50 ML IV SCH (10:04)
[2017-12-24] MEDS: POLYETHYLENE GLYCOL 3350 POWDER 17 GM/1 PACKET PO SCH (10:04)
[2017-12-24] MEDS ORDERED: OXYCODONE HCL IR 5 MG TABLET PO PRN (12:44)
[2017-12-24] MEDS ORDERED: SIMETHICONE 80 MG TAB.CHEW PO PRN (12:44)
[2017-12-24] MEDS ORDERED: GUAIFENESIN SYRP 200 MG/10 ML UDC PO PRN (12:44)
[2017-12-24] MEDS ORDERED: LACTULOSE SYRUP 20 GM/30 ML UDCUP PO PRN (12:44)
[2017-12-24] MEDS ORDERED: VANCOMYCIN HCL 0 MG in DEXTROSE 5%-WATER 250 ML IV NR (12:45)
[2017-12-24] MEDS: ONDANSETRON HCL INJ/PF 4 MG/2 ML SDV IV PRN ×2 (12:54→17:40)
--- NOTE | 2017-12-24 13:00 | PDOC PROGRESS REPORT ---
Subjective Progress Note for:: 12/24/17 Subjective:: Patient is demanding pain medications, something to make her sleep, and a PICC Reason For Visit: PNEUMONIA Physical Exam Vital Signs: Temp Pulse Resp BP Pulse Ox 98.2 F 99 22 H 117/76 97 12/24/17 12:10 12/24/17 12:10 12/24/17 12:10 12/24/17 12:10 12/24/17 12:10 Intake & Output 12/23/17 12/24/17 12/25/17 06:59 06:59 06:59 Intake Total 700 Output Total 3500 600 Balance -2800 -600 Weight 187 lb 6.287 oz General appearance: PRESENT: no acute distress, obese, other - Chronically ill- appearing Exam: Speaks one word each breath Neck exam: PRESENT: tracheostomy Respiratory exam: PRESENT: accessory muscle use, clear to auscultation [place], decreased breath sounds, prolonged expiratory phas, rhonchi - Upper airway. ABSENT: wheezes Cardiovascular exam: PRESENT: RRR GI/Abdominal exam: PRESENT: soft Neurological exam: PRESENT: alert Psychiatric exam: PRESENT: agitated, unusual affect Skin exam: PRESENT: warm Results Laboratory Results: 12/23/17 15:20 Lactic Acid 0.7 Impressions: Chest X-Ray 12/23/17 11:23 IMPRESSION: NO ACUTE RADIOGRAPHIC FINDING IN THE CHEST. Assessment & Plan - Diagnosis (1) Gram-positive bacteremia Is this a current diagnosis for this admission?: Yes Plan: 2/2 bottles. I will start vancomycin pending cultures (2) Acute respiratory failure with hypoxia Is this a current diagnosis for this admission?: Yes (3) COPD exacerbation Is this a current diagnosis for this admission?: Yes Plan: Steroids, nebulizers, empiric antibiotics, aggressive pulmonary toilet, wean oxygen as tolerated (4) Chronic hypoxemic respiratory failure Is this a current diagnosis for this admission?: Yes (5) Opiate dependence, continuous Is this a current diagnosis for this admission?: Yes (6) Diabetes mellitus type 2, controlled Qualifiers: Diabetes mellitus alf insulin use: with intermediate accountant use Diabetes mellitus complication status: without complication Qualified Code(s): E11.9 - Type 2 diabetes mellitus without complications; 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 Has not smoked since the first of the year ( hospitalized or in rehab)
[2017-12-24] MEDS ORDERED: POTASSIUM CHLORIDE 10 MEQ TABLET.SA PO ONE (14:00)
[2017-12-24] MEDS ORDERED: NICOTINE 14 MG/24 HR PATCH.TD24 TD ONE (14:00)
[2017-12-24] MEDS ORDERED: NITROGLYCERIN 10 MG (0.4 MG/HR) PATCH.TD24 TOP ONE (14:00)
[2017-12-24] MEDS ORDERED: ROFLUMILAST 500 MCG TABLET PO ONE (15:00)
[2017-12-24] MEDS: PREGABALIN 100 MG CAPSULE PO SCH ×2 (15:23→22:31)
--- NOTE | 2017-12-24 15:23 | RADIOLOGY REPORT (SQ) ---
EXAM DESCRIPTION: PICC INSERTION; FLUORO/CV PLACEMENT; U/S GUIDE FOR VASCULAR ACCESS COMPLETED DATE/TIME: 12/24/2017 3:09 pm; 12/24/2017 3:10 pm REASON FOR STUDY: intermediate abx; IV ABX COMPARISON: CHEST FILMS 09/04/2017, 09/13/2017, 12/23/2017 FLUOROSCOPY TIME: 1 minutes 2 digital radiographic C-arm images and 1 ultrasound images saved to PACS. TECHNIQUE: Fluoroscopic and ultrasound guided PICC placement. LIMITATIONS: None. PROCEDURE: After written consent and assessment were obtained, the patient was brought into the fluo roscopy room and place supine on the table. Ultrasound evaluation of potential access sites were perf ormed. After successfully identifying a patent right basilic, the right arm was prepped and draped in a sterile fashion along with the ultrasound probe. The entry site was anesthetized with 1% lidocaine . A 21 gauge 7 cm needle was advanced through the skin and into the basilic vein under live ultrasoun d guidance. An ultrasound image was saved to PACS confirming access site. A .018 guide wire was the n inserted through the needle and into the venous system. The needle was the removed and an 11 blade scalpel was used to make a 1cm skin incision. A 5 fr peel-away sheath was advanced over the wire and into the venous system. A measurement was then made using the existing wire and live fluoroscopic gu idance. The wire was then removed and the trimmed. The PICC was advanced through the peel-away sheath and into the venous system. The peel-away sheath was removed and the catheter was adhered to the pat ients arm with a stat lock. The catheter was then aspirated and flushed and a sterile bandage was radha azar over the access site. A fluoroscopic spot image was saved to PACS confirming the catheter tip wi thin the superior vena cava. IMPRESSION: SUCCESSFUL PLACEMENT OF A 5 FR DUAL LUMEN 32 CM PICC IN THE RIGHT BASILIC VEIN. COMMENT: Patient medication list reviewed: Yes- Quality ID# [id number]:Eligible professional attests to doc umenting in the medical record they obtained, updated, or reviewed the patient's current medications. . Quality ID 145: Final reports for procedures using fluoroscopy that document radiation exposure caterina vanesa, or exposure time and number of fluorographic images (if radiation exposure indices are not avail able) Quality ID #76: The patient was prepped and aped using maximum sterile barrier technique including cap, mask, sterile gown, sterile gloves, a large sterile sheet, hand hygiene, and 2% Chlorhexidine fo r cutaneous antisepsis. When ultrasound is used, sterile ultrasound techniques are followed requiring sterile gel and sterile probes. TECHNICAL DOCUMENTATION: JOB ID: [id number] [employer]- All Rights Reserved Reading location - IP/workstation name: [email or web address]
--- NOTE | 2017-12-24 15:23 | RADIOLOGY REPORT (SQ) ---
EXAM DESCRIPTION: PICC INSERTION; FLUORO/CV PLACEMENT; U/S GUIDE FOR VASCULAR ACCESS COMPLETED DATE/TIME: 12/24/2017 3:09 pm; 12/24/2017 3:10 pm REASON FOR STUDY: FPC abx; IV ABX COMPARISON: CHEST FILMS 09/04/2017, 09/13/2017, 12/23/2017 FLUOROSCOPY TIME: 1 minutes 2 digital radiographic C-arm images and 1 ultrasound images saved to PACS. TECHNIQUE: Fluoroscopic and ultrasound guided PICC placement. LIMITATIONS: None. PROCEDURE: After written consent and assessment were obtained, the patient was brought into the fluo roscopy room and place supine on the table. Ultrasound evaluation of potential access sites were perf ormed. After successfully identifying a patent right basilic, the right arm was prepped and draped in a sterile fashion along with the ultrasound probe. The entry site was anesthetized with 1% lidocaine . A 21 gauge 7 cm needle was advanced through the skin and into the basilic vein under live ultrasoun d guidance. An ultrasound image was saved to PACS confirming access site. A .018 guide wire was the n inserted through the needle and into the venous system. The needle was the removed and an 11 blade scalpel was used to make a 1cm skin incision. A 5 fr peel-away sheath was advanced over the wire and into the venous system. A measurement was then made using the existing wire and live fluoroscopic gu idance. The wire was then removed and the trimmed. The PICC was advanced through the peel-away sheath and into the venous system. The peel-away sheath was removed and the catheter was adhered to the pat ients arm with a stat lock. The catheter was then aspirated and flushed and a sterile bandage was radha azar over the access site. A fluoroscopic spot image was saved to PACS confirming the catheter tip wi thin the superior vena cava. IMPRESSION: SUCCESSFUL PLACEMENT OF A 5 FR DUAL LUMEN 32 CM PICC IN THE RIGHT BASILIC VEIN. COMMENT: Patient medication list reviewed: Yes- Quality ID# 130:Eligible professional attests to doc umenting in the medical record they obtained, updated, or reviewed the patient's current medications. . Quality ID 145: Final reports for procedures using fluoroscopy that document radiation exposure caterina vanesa, or exposure time and number of fluorographic images (if radiation exposure indices are not avail able) Quality ID #76: The patient was prepped and aped using maximum sterile barrier technique including cap, mask, sterile gown, sterile gloves, a large sterile sheet, hand hygiene, and 2% Chlorhexidine fo r cutaneous antisepsis. When ultrasound is used, sterile ultrasound techniques are followed requiring sterile gel and sterile probes. TECHNICAL DOCUMENTATION: JOB ID: [id number] [employer]- All Rights Reserved Reading location - IP/workstation name: [facility]
--- NOTE | 2017-12-24 15:23 | RADIOLOGY REPORT (SQ) ---
EXAM DESCRIPTION: PICC INSERTION; FLUORO/CV PLACEMENT; U/S GUIDE FOR VASCULAR ACCESS COMPLETED DATE/TIME: 12/24/2017 3:09 pm; 12/24/2017 3:10 pm REASON FOR STUDY: intermediate abx; IV ABX COMPARISON: CHEST FILMS 09/04/2017, 09/13/2017, 12/23/2017 FLUOROSCOPY TIME: 1 minutes 2 digital radiographic C-arm images and 1 ultrasound images saved to PACS. TECHNIQUE: Fluoroscopic and ultrasound guided PICC placement. LIMITATIONS: None. PROCEDURE: After written consent and assessment were obtained, the patient was brought into the fluo roscopy room and place supine on the table. Ultrasound evaluation of potential access sites were perf ormed. After successfully identifying a patent right basilic, the right arm was prepped and draped in a sterile fashion along with the ultrasound probe. The entry site was anesthetized with 1% lidocaine . A 21 gauge 7 cm needle was advanced through the skin and into the basilic vein under live ultrasoun d guidance. An ultrasound image was saved to PACS confirming access site. A .018 guide wire was the n inserted through the needle and into the venous system. The needle was the removed and an 11 blade scalpel was used to make a 1cm skin incision. A 5 fr peel-away sheath was advanced over the wire and into the venous system. A measurement was then made using the existing wire and live fluoroscopic gu idance. The wire was then removed and the trimmed. The PICC was advanced through the peel-away sheath and into the venous system. The peel-away sheath was removed and the catheter was adhered to the pat ients arm with a stat lock. The catheter was then aspirated and flushed and a sterile bandage was rahda azar over the access site. A fluoroscopic spot image was saved to PACS confirming the catheter tip wi thin the superior vena cava. IMPRESSION: SUCCESSFUL PLACEMENT OF A 5 FR DUAL LUMEN 32 CM PICC IN THE RIGHT BASILIC VEIN. COMMENT: Patient medication list reviewed: Yes- Quality ID# 130:Eligible professional attests to doc umenting in the medical record they obtained, updated, or reviewed the patient's current medications. . Quality ID 145: Final reports for procedures using fluoroscopy that document radiation exposure caterina vanesa, or exposure time and number of fluorographic images (if radiation exposure indices are not avail able) Quality ID #76: The patient was prepped and aped using maximum sterile barrier technique including cap, mask, sterile gown, sterile gloves, a large sterile sheet, hand hygiene, and 2% Chlorhexidine fo r cutaneous antisepsis. When ultrasound is used, sterile ultrasound techniques are followed requiring sterile gel and sterile probes. TECHNICAL DOCUMENTATION: JOB ID: [id number] [employer]™- All Rights Reserved Reading location - IP/workstation name: [facility]
[2017-12-24] MEDS: NYSTATIN TOPICAL POWDER 15 GM TP SCH (17:10)
[2017-12-24] MEDS: AZITHROMYCIN 500 MG in DEXTROSE 5%-WATER 250 ML IV SCH (17:11)
[2017-12-24] MEDS: DIPHENHYDRAMINE HCL 25 MG CAPSULE PO SCH (17:11)
[2017-12-24] MEDS: VANCOMYCIN HCL 500 MG in DEXTROSE 5%-WATER 100 ML IV SCH (17:25)
[2017-12-24] MEDS ORDERED: (PENDING PHARMACY ID) (Iron Ps Complex/B12/Folic Acid [Poly-Iron 150 Forte Capsule] 1 CAP) PO SCH (18:00)
[2017-12-24] MEDS ORDERED: IRON POLYSACCHARIDES COMPLEX 150 MG CAPSULE PO SCH (18:00)
[2017-12-24] MEDS ORDERED: FAMOTIDINE 20 MG TABLET PO SCH (18:00)
[2017-12-24] MEDS ORDERED: AMITRIPTYLINE HCL 25 MG TABLET PO SCH (22:00)
[2017-12-24] MEDS ORDERED: METOPROLOL TARTRATE 25 MG TABLET PO SCH (22:00)
[2017-12-24] MEDS ORDERED: QUETIAPINE FUMARATE 25 MG TABLET PO SCH (22:00)
[2017-12-24] MEDS ORDERED: (PENDING PHARMACY ID) (Quetiapine Fumarate [Seroquel] 50 MG) PO SCH (22:00)
[2017-12-25] MEDS ORDERED: ACETAMINOPHEN 325 MG TABLET PO PRN (03:56)
[2017-12-25] MEDS: PREGABALIN 100 MG CAPSULE PO SCH (05:40)
[2017-12-25] MEDS: DIPHENHYDRAMINE HCL 25 MG CAPSULE PO SCH (05:40)
[2017-12-25] MEDS: VANCOMYCIN HCL 500 MG in DEXTROSE 5%-WATER 100 ML IV SCH ×2 (05:42→18:56)
[2017-12-25] MEDS ORDERED: (PENDING PHARMACY ID) (Roflumilast [Daliresp 500 Mcg Tablet] 500 MCG) PO SCH (08:00)
[2017-12-25] MEDS ORDERED: FUROSEMIDE 20 MG TABLET PO SCH (08:00)
[2017-12-25] MEDS: IPRATROPIUM/ALBUTEROL 0.5-2.5 MG/3 ML AMPUL NEB SCH (08:31)
[2017-12-25] MEDS ORDERED: ASPIRIN 81 MG TABLET, ENT COATED PO SCH (10:00)
[2017-12-25] MEDS ORDERED: POTASSIUM CHLORIDE 10 MEQ TABLET.SA PO SCH (10:00)
[2017-12-25] MEDS ORDERED: ROFLUMILAST 500 MCG TABLET PO SCH (10:00)
[2017-12-25] MEDS: ENOXAPARIN SODIUM INJ 40 MG/0.4 ML DISP.SYRIN SUBCUT SCH (10:50)
[2017-12-25] MEDS: NICOTINE 14 MG/24 HR PATCH.TD24 TD SCH (10:50)
[2017-12-25] MEDS ORDERED: METOPROLOL TARTRATE PF/INJ 5 MG/5 ML SDV IV PRN (10:54)
[2017-12-25] MEDS: CEFTRIAXONE SODIUM 1,000 MG in DEXTROSE 5%-WATER 50 ML IV SCH (11:05)
[2017-12-25] MEDS: NITROGLYCERIN 10 MG (0.4 MG/HR) PATCH.TD24 TOP SCH (11:06)
[2017-12-25] MEDS: POLYETHYLENE GLYCOL 3350 POWDER 17 GM/1 PACKET PO SCH (11:07)
[2017-12-25] MEDS: NYSTATIN TOPICAL POWDER 15 GM TP SCH ×2 (11:07→18:57)
[2017-12-25] MEDS ORDERED: METOPROLOL TARTRATE PF/INJ 5 MG/5 ML SDV IV ONE (11:27)
[2017-12-25] MEDS: METOPROLOL TARTRATE PF/INJ 5 MG/5 ML SDV IV SCH ×2 (12:18→18:39)
[2017-12-25] MEDS: METHYLPREDNISOLONE INJ 40 MG/1 ML SDV IV SCH (12:25)
[2017-12-25] MEDS: ACETAMINOPHEN 650 MG SUPP.RECT PR PRN (12:40)
--- NOTE | 2017-12-25 13:29 | OPERATIVE REPORT E ---
Operative Report NAME: DAGO GRAFF : 1945 AGE: 72Y DATE OF SURGERY: 12/25/2017 ROOM: 334 PREOPERATIVE DIAGNOSIS: Desaturation with the patient on a regular trach. POSTOPERATIVE DIAGNOSIS: Desaturation with the patient on a regular trach. OPERATION: Replacement of trach tube with a balloon trach. SURGEON: FELECIA HEALY M.D. INDICATIONS: This is a 73-year-old female with respiratory failure had a previous trach in 08/2017. The patient noted to have desaturation of pulse oximetry on 30-40% of oxygen. The patient needed a new trach with a cuff for possible mechanical ventilation. PROCEDURE: The patient was placed in slight supine position about 30 degrees. The old trach was then removed. A new trach with a cuff tube was placed, a number 6 Shiley placed into the tracheal area with no significant difficulty. The trach was then anchored around the neck with a strap. The obturator was then put inside the trach and suctioned out. The cuff was left deflated at this time. The patient tolerated the procedure well. There was a lot of blood since the patient has been Lovenox. However, no active bleeding noted. The patient tolerated the procedure well. Gauze was placed around the trach. DICTATING PHYSICIAN: FELECIA HEALY M.D. [id number] PHY#: [id number] ID: [id number] JOB#: [id number] ACCT: [id number] cc:FELECIA HEALY M.D. >
[2017-12-25] MEDS ORDERED: FUROSEMIDE INJ/PF 20 MG/2 ML SDV IV SCH (14:00)
[2017-12-25] MEDS: LEVALBUTEROL HCL NEB 1.25 MG/3 ML AMPUL NEB SCH ×2 (14:16→20:31)
--- NOTE | 2017-12-25 15:04 | PDOC PROGRESS REPORT ---
Subjective Progress Note for:: 12/25/17 Subjective:: There were no new issues when I was in there earlier, but she was tachycardic. Since that time, she had an episode of desaturation. Respiratory therapy suctioned her out, and that appears to have improved the situation. I was concerned that she may need to be put back on the vent, so I had surgery change out her trach to a cuffed. Staff was very uncomfortable giving her her meds this morning because of difficulty swallowing, I changed her medications over to IV or topical as possible and consulted speech therapy. Reason For Visit: PNEUMONIA Physical Exam Vital Signs: Temp Pulse Resp BP Pulse Ox 103.0 F H 114 H 26 H 98/37 L 91 L 12/25/17 12:00 12/25/17 14:16 12/25/17 14:16 12/25/17 14:12 12/25/17 14:16 Intake & Output 12/24/17 12/25/17 12/26/17 06:59 06:59 06:59 Intake Total 700 1819 Output Total 3500 3100 Balance -2800 -1281 Weight 187 lb 6.287 oz 184 lb 8.43 oz General appearance: PRESENT: no acute distress, disheveled, obese, other - Chronically ill-appearing Neck exam: PRESENT: tracheostomy Respiratory exam: PRESENT: accessory muscle use, decreased breath sounds, prolonged expiratory phas, rhonchi - Scattered, mostly upper airway Cardiovascular exam: PRESENT: RRR GI/Abdominal exam: PRESENT: soft. ABSENT: tenderness Neurological exam: PRESENT: alert Psychiatric exam: PRESENT: unusual affect Skin exam: PRESENT: warm Results Impressions: Chest X-Ray 12/23/17 11:23 IMPRESSION: NO ACUTE RADIOGRAPHIC FINDING IN THE CHEST. Guidance Fluoroscopy 12/24/17 00:00 IMPRESSION: SUCCESSFUL PLACEMENT OF A 5 FR DUAL LUMEN 32 CM PICC IN THE RIGHT BASILIC VEIN. Interventional Vascular Procedure 12/24/17 00:00 IMPRESSION: SUCCESSFUL PLACEMENT OF A 5 FR DUAL LUMEN 32 CM PICC IN THE RIGHT BASILIC VEIN. PICC Line Insertion 12/24/17 00:00 IMPRESSION: SUCCESSFUL PLACEMENT OF A 5 FR DUAL LUMEN 32 CM PICC IN THE RIGHT BASILIC VEIN. Assessment & Plan - Diagnosis (1) Gram-positive bacteremia Is this a current diagnosis for this admission?: Yes Plan: 2/2 bottles. Continue vancomycin pending cultures (2) Acute respiratory failure with hypoxia Is this a current diagnosis for this admission?: Yes (3) COPD exacerbation Is this a current diagnosis for this admission?: Yes Plan: Steroids, nebulizers, empiric antibiotics, aggressive pulmonary toilet, wean oxygen as tolerated (4) Chronic hypoxemic respiratory failure Is this a current diagnosis for this admission?: Yes (5) Opiate dependence, continuous Is this a current diagnosis for this admission?: Yes (6) Diabetes mellitus type 2, controlled Qualifiers: Diabetes mellitus detention insulin use: with parts counterman use Diabetes mellitus complication status: without complication Qualified Code(s): E11.9 - Type 2 diabetes mellitus without complications; Z79.4 - exterminator termite (current) use of insulin; Z79.4 - FPC (current) use of insulin; Z79.4 - exterminator termite ( current) use of insulin; Z79.4 - exterminator termite (current) use of insulin Is this a current diagnosis for this admission?: Yes Plan: Home medications are being held because of her n.p.o. status pending swallow eval. Cover with sliding scale insulin (7) INÉS (obstructive sleep apnea) Is this a current diagnosis for this admission?: No Plan: Resolved with placement of a tracheostomy (8) Tobacco dependency Is this a current diagnosis for this admission?: Yes Plan: Continue nicotine replacement. Has not smoked since the first of the year ( hospitalized or in rehab) (9) Chronic pain associated with significant psychosocial dysfunction Is this a current diagnosis for this admission?: Yes Plan: Symptomatic treatment (10) Diabetic neuropathy Qualifiers: Diabetes mellitus type: type 2 Diabetes mellitus complication detail: diabetic polyneuropathy Qualified Code(s): E11.42 - Type 2 diabetes mellitus with diabetic polyneuropathy Is this a current diagnosis for this admission?: Yes Plan: Mostly pain in her feet. Her Lyrica is on hold.
[2017-12-25] MEDS: AZITHROMYCIN 500 MG in DEXTROSE 5%-WATER 250 ML IV SCH (17:45)
[2017-12-25] MEDS: DIPHENHYDRAMINE HCL 50 MG/ML VIAL IV SCH (17:45)
[2017-12-25] MEDS: FENTANYL 25 MCG/HR PATCH.TD72 TD SCH (18:39)
[2017-12-25] MEDS ORDERED: NORMAL SALINE 500 ML IV ONE ×2 (20:00→20:30)
[2017-12-25 20:41] LABS: ARTERIAL BLOOD BASE EXCESS -3.5 mmol/L; ARTERIAL BLOOD FIO2 28%; ARTERIAL BLOOD H2CO3 1.12 mmol/L (1.05-1.35); ARTERIAL BLOOD HCO3 21.3 mmol/L (20-26); ARTERIAL BLOOD O2 SATURATION 93.5 % (94-98); ARTERIAL BLOOD PCO2 37.1 mmHg (35-45); ARTERIAL BLOOD PH 7.38 (7.35-7.45); ARTERIAL BLOOD PO2 68.6 mmHg (80-100); ARTERIAL BLOOD TOTAL CO2 22.4 mmol/L (21-25)
[2017-12-25] MEDS: INSULIN LISPRO 100 UNIT/ML 3 ML VIAL SUBCUT PRN (22:26)
[2017-12-26] MEDS: METOPROLOL TARTRATE PF/INJ 5 MG/5 ML SDV IV SCH ×3 (00:30→17:51)
[2017-12-26] MEDS: ONDANSETRON HCL INJ/PF 4 MG/2 ML SDV IV PRN ×3 (03:00→09:41)
[2017-12-26] MEDS: LORAZEPAM INJ 2 MG/1 ML VIAL IV PRN ×2 (03:37→21:06)
[2017-12-26] MEDS: ACETAMINOPHEN 650 MG SUPP.RECT PR PRN ×2 (03:42→11:44)
[2017-12-26] MEDS ORDERED: METOPROLOL TARTRATE PF/INJ 5 MG/5 ML SDV IV ONE (04:45)
[2017-12-26] MEDS: DIPHENHYDRAMINE HCL 50 MG/ML VIAL IV SCH ×3 (05:12→17:51)
[2017-12-26] MEDS: VANCOMYCIN HCL 500 MG in DEXTROSE 5%-WATER 100 ML IV SCH (05:23)
[2017-12-26 05:37] LABS: VANCOMYCIN,TROUGH 5.8 ug/mL (5.0-20.0)
[2017-12-26] MEDS: LEVALBUTEROL HCL NEB 1.25 MG/3 ML AMPUL NEB SCH ×3 (08:47→20:25)
[2017-12-26] MEDS: VANCOMYCIN HCL 1,000 MG in DEXTROSE 5%-WATER 250 ML IV SCH ×2 (09:40→18:30)
[2017-12-26] MEDS: CEFTRIAXONE SODIUM 1,000 MG in DEXTROSE 5%-WATER 50 ML IV SCH (09:40)
[2017-12-26] MEDS: ENOXAPARIN SODIUM INJ 40 MG/0.4 ML DISP.SYRIN SUBCUT SCH (09:41)
[2017-12-26] MEDS: NICOTINE 14 MG/24 HR PATCH.TD24 TD SCH (09:41)
[2017-12-26] MEDS: NITROGLYCERIN 10 MG (0.4 MG/HR) PATCH.TD24 TOP SCH (09:44)
[2017-12-26] MEDS: NYSTATIN TOPICAL POWDER 15 GM TP SCH ×2 (09:44→17:59)
[2017-12-26] MEDS: METHYLPREDNISOLONE INJ 40 MG/1 ML SDV IV SCH (11:44)
--- NOTE | 2017-12-26 15:14 | TRANSFER SUMMARY E ---
Transfer Summary NAME: DAGO GRAFF : 1945 AGE: 72Y ADMITTED: 12/23/2017 TRANSFERRED: 12/27/2017 CODE STATUS: FULL CODE. PRIMARY CARE PROVIDER: Samantha Hamilton M.D. OUTPATIENT AUTOMATIC FANCY MACHINE OPERATOR: Alexandre Garcia M.D. TRANSFER DIAGNOSES INCLUDE: 1. MRSA bacteremia and sepsis. 2. History of MRSA pneumonia. 3. Chronic obstructive pulmonary disease exacerbation with trach dependency. 4. Obesity with a BMI of 35. 5. Tobacco dependency, continuous. 6. Clinical pneumonia. 7. Coronary artery disease, status post coronary artery bypass grafting. 8. Hyperlipidemia. 9. Hypertension. 10. Sleep apnea. 11. 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 12. Diabetes mellitus, type 2. 13. Gastroesophageal reflux disease. 14. Osteoarthritis. 15. Psoriasis. 16. Depression. 17. Significant debility. 18. Anemia of chronic disease. 19. Previous reaction to vancomycin, currently requiring premedication. CURRENT MEDICATIONS INCLUDE: 1. Zosyn 4.5 mg IV every 6 hours. 2. Vancomycin 1 g IV every 8 hours. 3. Benadryl 25 mg IV every 8 hours, premedication for vancomycin. 4. Xopenex 0.63 mg every 4 hours p.r.n. 5. Xopenex 1.25 mg every 6 hours. 6. Nicotine patch 14 mg daily. 7. Lovenox 40 mg subcutaneously daily. 8. Metoprolol 2.5 mg IV every 6 hours. 9. Nitro-Dur 0.4 mg transdermal patch daily. 10. Tylenol 650 mg p.o. every 6 hours p.r.n. 11. Fentanyl patch 25 mcg every 72 hours. 12. Ativan 1 mg IV every 4 hours p.r.n. 13. Sliding-scale coverage every 6 hours. 14. Solu-Medrol 40 mg IV daily. DIET: Will be made n.p.o. for transfer. ACTIVITY: Bed rest. CONDITION: Stable but fair. DIAGNOSTICS: Lab values are as follows. Hematology obtained on 12/23/2017: WBCs are 9.0, hemoglobin is 12.1, hematocrit is 37.7, platelet count is 226,000. Coagulation obtained on 12/23/2017: PT is 30.6, INR is 0.99. ABG obtained on 12/25/2017: Her pH is 7.38, PCO2 is 37.1, PO2 is 68.6, bicarb is 21.3, O2 saturation is 93.5, and that was obtained on 35% FIO2. Chemistry obtained on 12/23/2017: Sodium is 140, potassium 4.3, chloride is 103, carbon dioxide 24, BUN 23, creatinine is 0.78, glucose 146, calcium is 9.1, bilirubin is 1.5, AST 29, ALT is 31, alk phos 46, total protein 6.9, albumin 4.2. Urinalysis obtained on 12/23/2017: Her pH is 5.0, specific gravity is 1.018, protein negative, glucose negative, ketones negative, occult blood small, nitrite negative, bilirubin negative, urobilinogen negative, leukocyte esterase is negative, WBCs 1, RBCs 1, casts 1. Toxicology obtained on 12/25/2017: Vancomycin trough is 5.8. Microbiology: Blood cultures obtained on 12/23/2017 reveal MRSA. Urine culture obtained on 12/23/2017 reveals no growth. Blood culture obtained on 12/25/2017 reveals Gram-positive cocci in clusters, suspect MRSA. Chest x-ray obtained on 12/23/2017 reveals no acute radiographic finding of the chest. EKG obtained on 12/23/2017 reveals sinus tachycardia. PHYSICAL EXAMINATION: GENERAL: On examination, the patient is a frail, chronically ill-appearing, quite debilitated 72-year-old female who is awake, alert. She is oriented to person, place, time, situation. She does not have a Passy valve to speak but is able to communicate. She does not appear to be distressed. VITAL SIGNS: As follows: Temperature is 100.1, pulse 115, respirations 18, blood pressure is 123/33, oxygen saturation is 89% on 35% FIO2. SKIN: Pale, face is jose, dry. No rash. She is not diaphoretic. HEENT: Pupils equal, round, reactive to light and accommodation. Conjunctiva is pale. There is no evidence of JVP. CARDIOVASCULAR: Heart is tachycardic, regular. No rub. CHEST: The patient does have rhonchorous breath sounds noted throughout both lung yusuf. ABDOMEN: Obese, soft, nontender. EXTREMITIES: No clubbing, cyanosis, edema. The patient does have foot drop. PSYCHIATRIC: Appears to be at her alert and oriented baseline. HISTORY OF PRESENT ILLNESS: The patient is a 72-year-old female with a past medical history of chronic respiratory failure and trach dependency. The patient presented to the emergency department due to general malaise. The patient was on our service back in August following a long intubation which spanned greater than 2 weeks. The patient subsequently received a trach and PEG during that admission and was discharged to rehab. The patient continued to smoke. The patient reports feeling poorly for about 72 hours and increase in purulent phlegm from her tracheostomy. The patient was noted to have a temperature of greater than 102 by EMS. The patient denied any nausea, vomiting nor diarrhea. No chest pain. No myalgias or hemoptysis but does admit to feeling congested. The patient's chest x-ray did not show any specific finding; however, the patient was referred to the hospitalist for admission and management. HOSPITAL COURSE: The patient was admitted to [facility]. The patient did have a set of blood cultures drawn on 12/23/2017 which grew out MRSA. The patient does have a history of MRSA in her sputum and, therefore, was covered with vancomycin from admission. The patient's urine culture revealed no growth; however, the patient's repeat blood cultures on 12/25/2017 also revealed MRSA. The patient has remained febrile since admission and started being started on vancomycin. The patient's coverage initially consisted of Rocephin and azithromycin; however, her antibiotic coverage was expanded to Zosyn and vancomycin with the others discontinued. The patient did have a PICC line placed on 12/24/2017, and this has been discontinued due to the patient being bacteremic. The patient has had quite a congested examination and has been suctioned of a significant amount of sputum from her tracheostomy. The patient does have a pending speech evaluation. The patient was seen by Surgery and the patient's tracheostomy was transitioned to a cuffed trach in case the patient does require mechanical ventilation. Did discuss the findings with the patient, including persistent bacteremia and her persistent febrile state, the need for a LEELEE. Do not feel she can make a round trip in a day's time comfortably given that her condition is marginal. Therefore, recommended transfer to inhouse infectious disease at a tertiary center as well as for LEELEE. The patient is in agreeance of this plan as long as she gets a bed in [place]. TRANSFER PLANNING: The patient will be received at the services of Dr. Stone, the hospitalist at [facility] on the [facility]. As always, the hospitalist at [facility] would like to thank [facility] for graciously participating in the care of this patient. Should the patient's condition improve with all the necessary consultations and planning, the patient can be accepted back to this facility. Time spent on this transfer, including assessment/plan, physical examination, patient education, review of records, is 50 minutes. DICTATING PHYSICIAN: ELLY SILVA NP [id number] PHY#: [id number] ID: [id number] JOB#: [id number] ACCT: [id number] cc:ELLY SILVA NP > MTDD
[2017-12-26] MEDS: PIPERACILLIN SODIUM/TAZOBACTAM 4.5 GM in NORMAL SALINE 100 ML IV SCH (17:50)
[2017-12-26] MEDS: PANTOPRAZOLE SODIUM 40 MG VIAL IV SCH (17:51)
[2017-12-26] MEDS: LEVALBUTEROL HCL NEB 0.63 MG/3 ML AMPUL NEB PRN (18:42)
[2017-12-26] MEDS ORDERED: ACETAMINOPHEN 325 MG TABLET PO PRN (18:58)
[2017-12-26] MEDS ORDERED: DIPHENHYDRAMINE HCL 25 MG CAPSULE PO SCH (22:00)
[2017-12-27] MEDS: PIPERACILLIN SODIUM/TAZOBACTAM 4.5 GM in NORMAL SALINE 100 ML IV SCH ×5 (00:08→23:18)
[2017-12-27] MEDS: ONDANSETRON HCL INJ/PF 4 MG/2 ML SDV IV PRN ×2 (00:24→05:37)
[2017-12-27] MEDS: METOPROLOL TARTRATE PF/INJ 5 MG/5 ML SDV IV SCH ×5 (00:45→23:16)
[2017-12-27] MEDS: DIPHENHYDRAMINE HCL 50 MG/ML VIAL IV SCH ×3 (00:45→18:09)
[2017-12-27] MEDS: VANCOMYCIN HCL 1,000 MG in DEXTROSE 5%-WATER 250 ML IV SCH ×2 (01:31→10:28)
[2017-12-27] MEDS: PANTOPRAZOLE SODIUM 40 MG VIAL IV SCH ×2 (06:46→18:12)
[2017-12-27] MEDS: LEVALBUTEROL HCL NEB 1.25 MG/3 ML AMPUL NEB SCH ×3 (08:57→19:41)
[2017-12-27] MEDS: ENOXAPARIN SODIUM INJ 40 MG/0.4 ML DISP.SYRIN SUBCUT SCH (10:26)
[2017-12-27] MEDS: NICOTINE 14 MG/24 HR PATCH.TD24 TD SCH (10:27)
[2017-12-27] MEDS: NYSTATIN TOPICAL POWDER 15 GM TP SCH ×2 (10:28→18:10)
[2017-12-27] MEDS: NITROGLYCERIN 10 MG (0.4 MG/HR) PATCH.TD24 TOP SCH (10:29)
[2017-12-27 11:14] LABS: VANCOMYCIN,TROUGH 13.3 ug/mL (5.0-20.0)
[2017-12-27] MEDS: METHYLPREDNISOLONE INJ 40 MG/1 ML SDV IV SCH (14:22)
--- NOTE | 2017-12-27 16:09 | PROGRESS NOTE E ---
Progress Note NAME: DAGO GRAFF : 1945 AGE: 72Y DATE: 12/26/2017 ROOM: 334 SUBJECTIVE: The patient was seen on rounds. The patient is unable to verbalize any issues given she does not have a Passy valve for her trach, however, she is able to communicate with yeses or nos. The patient denies any specific concern other than her trach is sore. The patient has denied any nausea, vomiting. No diarrhea. The patient has been producing copious amounts of sputum which was then suctioned. The patient is unable to voice any specific concern at this time. The patient has been accepted at a tertiary center for transfer. REVIEW OF SYSTEMS: A full review of systems is difficult to appreciate given the patient's communication issues. MEDICATIONS: Medications have been reviewed. OBJECTIVE: GENERAL: The patient is a 72-year-old female who is awake, alert. She oriented to person, time, place, situation. She appears to be oriented, does not appear to be distressed. VITAL SIGNS: Temperature is 98.3, pulse 92, respirations 19, blood pressure is 126/56, oxygen saturation is 100% on trach collar.. SKIN: A very jose facial complexion, but no obvious rash. She is not diaphoretic. HEENT: Pupils equal, round, and reactive to light and accommodation. Conjunctivae are pale. There is no evidence of JVP. The patient's trach appears to be well-approximated. No obvious trauma associated with it. It is tender to manipulation, which it was just changed yesterday. CARDIOVASCULAR: Heart is regular. There is no rub. CHEST: The patient does have rhonchorous breath sounds throughout both lung yusuf. ABDOMEN: Obese, soft, nontender. EXTREMITIES: No clubbing, cyanosis, edema. PSYCHIATRIC: The patient is awake, alert, and appeared to be oriented. DIAGNOSTICS: Lab values are as follows - hematology obtained on 12/23/2017; WBC is 9.0, hemoglobin is 12.1, hematocrit 37.7, platelet count is 226,000. Chemistry obtained on 12/23/2017; sodium is 140, potassium 4.3, chloride 103, carbon dioxide 24, BUN 23, creatinine is 0.78. IMPRESSION AND PLAN: 1. MRSA BACTEREMIA. Will continue the patient on vancomycin. The patient is currently awaiting transfer for LEELEE an further evaluation. 2. SEPSIS, SECONDARY TO #1. The patient slowly appears to be improving. Will follow. 3. CHRONIC OBSTRUCTIVE PULMONARY DISEASE EXACERBATION WITH TRACH DEPENDENCY. The patient does appear to be improving somewhat. 4. OBESITY WITH A BMI OF 35. 5. TOBACCO DEPENDENCY CONTINUOUS. Continue p.r.n. nicotine patch. 6. CLINICAL PNEUMONIA. Will continue antibiotic coverage. 7. CORONARY ARTERY DISEASE. The patient is status post coronary artery bypass grafting. Continue medication. 8. HYPERLIPIDEMIA. Continue her meds. 9. HYPERTENSION. The patient is actually hypotensive now. Will hold the patient's agents. 10. SLEEP APNEA. The patient is trach dependent. 11. DIABETES MELLITUS TYPE 2. Continue sliding scale. 12. GASTROESOPHAGEAL REFLUX DISEASE. Will continue PPI. 13. OSTEOARTHRITIS. Continue her medication. 14. ANEMIA OF CHRONIC DISEASE. Will repeat CBC in the a.m. CODE STATUS: The patient is a full code. DISPOSITION: Depending on the patient's symptomatology and diagnostic findings will reevaluate as needed. Hopefully the patient can transfer as soon as a bed is available. TIME SPENT: On this follow up, including assessment and plan, physical examination, patient education, review of records 25 minutes. DICTATING PHYSICIAN: ELLY SILVA NP [id number] PHY#: [id number] ID: [id number] JOB#: [id number] ACCT: [id number] cc: >
[2017-12-27] MEDS: ACETAMINOPHEN 650 MG SUPP.RECT PR PRN (18:11)
[2017-12-27] MEDS: VANCOMYCIN HCL 1,250 MG in DEXTROSE 5%-WATER 250 ML IV SCH (19:20)
--- NOTE | 2017-12-27 20:19 | PROGRESS NOTE E ---
Progress Note NAME: DAGO GRAFF : 1945 AGE: 72Y DATE: 12/27/2017 ROOM: 334 SUBJECTIVE: The patient is currently lying in bed. The patient states that she feels about the same as she did yesterday. Patient does not have a Passey valve in place; therefore, she is not able to verbalize anything at this time. The patient is able to communicate that she is having soreness around her trach. The patient has had no further episodes of vomiting or diarrhea. The patient is still waiting for a bed at [facility]. The patient does not voice any other concerns at this time. REVIEW OF SYSTEMS: The rest of the review of systems is negative. MEDICATIONS: Medications have been reviewed. OBJECTIVE: GENERAL: The patient is a 72-year-old female who is awake, alert. She is oriented to person, place, time, situation. She is verbal, conversational, does not appear to be in any acute distress. VITAL SIGNS: As follows: Temperature is 98.4, pulse 92, respirations 17, blood pressure is 101/47, oxygen saturation is 96% on 35% FIO2 on trach collar. SKIN: Warm and dry. No rash. She is not diaphoretic. HEENT: Pupils equal, round, and reactive to light and accommodation. Conjunctivae pale. There is no evidence of JVP. Tracheostomy is in place, appears intact. No obvious evidence of erythema. The patient has an overall jose facial complexion. CARDIOVASCULAR: Heart is regular. No murmur or rub. CHEST: The patient does have rhonchorous breath sounds noted throughout both lung yusuf, symmetrical, unlabored. ABDOMEN: Obese, soft, nontender, nondistended. BACK: No CVA tenderness or sacral edema. EXTREMITIES: No clubbing, cyanosis, edema. PSYCHIATRIC: Appropriate affect. Pleasant mood. DIAGNOSTICS: Lab values are as follows. Hematology obtained on 12/23/2017: WBCs are 9.0, hemoglobin is 12.1, hematocrit is 37.7, platelet count is 226,000. Chemistry obtained on 12/27/2017: Creatinine is 0.63, glucose is 108. IMPRESSION AND PLAN: 1. MRSA BACTERIA. Will continue the patient on vancomycin. The patient is currently awaiting transfer for [facility] and further evaluation. 2. SEPSIS SECONDARY TO #1. The patient does appear to be improving. Will follow. 3. CHRONIC OBSTRUCTIVE PULMONARY DISEASE WITH TRACH DEPENDENCY. The patient appears to be improving somewhat. 4. MORBID OBESITY WITH BMI OF 35. 5. TOBACCO DEPENDENCY, CONTINUOUS. Will continue p.r.n. nicotine patch. 6. CLINICAL PNEUMONIA. Will continue current antibiotic coverage. 7. CORONARY ARTERY DISEASE. The patient is status post coronary artery bypass grafting. Continue current medication. 8. HYPERLIPIDEMIA. Continue statin. 9. HYPERTENSION. The patient is actually hypotensive at this time. Will hold the patient's other agents. 10. SLEEP APNEA. The patient is trach dependent. 11. TYPE 2 DIABETES MELLITUS. Will continue sliding-scale coverage. 12. GASTROESOPHAGEAL REFLUX DISEASE. Will continue PPI therapy. 13. OSTEOARTHRITIS. Continue home medication. 14. ANEMIA OF CHRONIC DISEASE. Will repeat CBC in the a.m. DISPOSITION: THE PATIENT IS A FULL CODE. Pending the patient's symptomatology and diagnostic findings, will re-evaluate as needed. The patient will go to [facility] as soon as a bed is available. Time spent on this followup, including assessment/plan, physical examination, patient education, and review of records, is 25 minutes. DICTATING PHYSICIAN: ELLY SILVA NP [id number] PHY#: [id number] ID: [id number] JOB#: [id number] ACCT: [id number] cc: >
[2017-12-27] MEDS: LORAZEPAM INJ 2 MG/1 ML VIAL IV PRN (20:33)
[2017-12-27] MEDS: LEVALBUTEROL HCL NEB 0.63 MG/3 ML AMPUL NEB PRN (22:45)
[2017-12-28] MEDS: DIPHENHYDRAMINE HCL 50 MG/ML VIAL IV SCH ×3 (01:13→17:49)
[2017-12-28] MEDS: VANCOMYCIN HCL 1,250 MG in DEXTROSE 5%-WATER 250 ML IV SCH ×3 (01:44→17:50)
[2017-12-28] MEDS: METOPROLOL TARTRATE PF/INJ 5 MG/5 ML SDV IV SCH ×4 (05:19→23:46)
[2017-12-28] MEDS: PIPERACILLIN SODIUM/TAZOBACTAM 4.5 GM in NORMAL SALINE 100 ML IV SCH ×3 (05:22→17:50)
[2017-12-28 07:11] LABS: HEMATOCRIT 32.6 % (36.0-47.0); HEMOGLOBIN 10.7 g/dL (12.0-15.5); MEAN CORPUSCULAR HEMOGLOBIN 27.5 pg (27.0-33.4); MEAN CORPUSCULAR HGB CONC 32.7 g/dL (32.0-36.0); MEAN CORPUSCULAR VOLUME 84 fl (80-97); PLATELET COUNT 102 10^3/uL (150-450); RED BLOOD COUNT 3.89 10^6/uL (3.72-5.28); RED CELL DISTRIBUTION WIDTH 16.7 % (11.5-14.0)
[2017-12-28 07:31] LABS: ANION GAP 9 (5-19); BLOOD UREA NITROGEN 17 mg/dL (7-20); CALCIUM 8.5 mg/dL (8.4-10.2); CARBON DIOXIDE 27 mmol/L (22-30); CHLORIDE 108 mmol/L (98-107); GLUCOSE 128 mg/dL (75-110); POTASSIUM 3.5 mmol/L (3.6-5.0); SODIUM 143.9 mmol/L (137-145)
[2017-12-28] MEDS: LEVALBUTEROL HCL NEB 1.25 MG/3 ML AMPUL NEB SCH ×3 (08:51→19:55)
[2017-12-28] MEDS: PANTOPRAZOLE SODIUM 40 MG VIAL IV SCH ×2 (09:20→19:25)
[2017-12-28] MEDS: NITROGLYCERIN 10 MG (0.4 MG/HR) PATCH.TD24 TOP SCH (09:21)
[2017-12-28] MEDS: NYSTATIN TOPICAL POWDER 15 GM TP SCH ×2 (09:23→17:51)
[2017-12-28] MEDS: NICOTINE 14 MG/24 HR PATCH.TD24 TD SCH (09:23)
[2017-12-28] MEDS: ENOXAPARIN SODIUM INJ 40 MG/0.4 ML DISP.SYRIN SUBCUT SCH (10:07)
--- NOTE | 2017-12-28 12:13 | PDOC PROGRESS REPORT ---
Subjective Progress Note for:: 12/28/17 Subjective:: Patient awaiting transfer to [facility]. c/o pain in leg Reason For Visit: PNEUMONIA Physical Exam Vital Signs: Temp Pulse Resp BP Pulse Ox 98.1 F 81 18 131/64 H 99 12/28/17 07:19 12/28/17 08:51 12/28/17 08:51 12/28/17 07:19 12/28/17 07:19 Intake & Output 12/27/17 12/28/17 12/29/17 06:59 06:59 06:59 Intake Total 1130 1613 Output Total 1400 1100 Balance -270 513 Weight 86.5 kg 83.5 kg General appearance: PRESENT: no acute distress Head exam: PRESENT: atraumatic Neck exam: PRESENT: tracheostomy Respiratory exam: ABSENT: accessory muscle use Cardiovascular exam: PRESENT: RRR. ABSENT: diastolic murmur, rubs, systolic murmur GI/Abdominal exam: PRESENT: normal bowel sounds, soft. ABSENT: distended, guarding, mass, organolmegaly, rebound, tenderness Rectal exam: PRESENT: deferred Extremities exam: ABSENT: calf tenderness, joint swelling Neurological exam: PRESENT: alert, oriented to person, oriented to time Results Laboratory Results: 12/28/17 06:29 12/28/17 06:29 12/28/17 12/28/17 06:29 06:29 WBC 9.0 RBC 3.89 Hgb 10.7 L Hct 32.6 L MCV 84 MCH 27.5 MCHC 32.7 RDW 16.7 H Plt Count 102 L Sodium 143.9 Potassium 3.5 L Chloride 108 H Carbon Dioxide 27 Anion Gap 9 BUN 17 Creatinine 0.59 Est GFR ( Amer) > 60 Est GFR (Non-Af Amer) > 60 Glucose 128 H Calcium 8.5 Magnesium 2.5 H 12/25/17 17:30 Blood Blood Culture - Final Mrsa (Meth Resis Staph Aureus) 12/25/17 15:13 Blood Blood Culture - Final Mrsa (Meth Resis Staph Aureus) Impressions: Chest X-Ray 12/23/17 11:23 IMPRESSION: NO ACUTE RADIOGRAPHIC FINDING IN THE CHEST. Guidance Fluoroscopy 12/24/17 00:00 IMPRESSION: SUCCESSFUL PLACEMENT OF A 5 FR DUAL LUMEN 32 CM PICC IN THE RIGHT BASILIC VEIN. Interventional Vascular Procedure 12/24/17 00:00 IMPRESSION: SUCCESSFUL PLACEMENT OF A 5 FR DUAL LUMEN 32 CM PICC IN THE RIGHT BASILIC VEIN. PICC Line Insertion 12/24/17 00:00 IMPRESSION: SUCCESSFUL PLACEMENT OF A 5 FR DUAL LUMEN 32 CM PICC IN THE RIGHT BASILIC VEIN. Assessment & Plan - Time Time Spent with patient: 15-24 minutes Medications reviewed and adjusted accordingly: Yes Anticipated discharge: [facility] Within: within 48 hours - Plan Summary Plan Summary: 1. MRSA bacteremia currently on vancomycin. She is currently awaiting transfer for further management and evaluation. 2. Sepsis secondary to #1 patient is apparently improving 3. Chronic obstructive pulmonary disease with tracheostomy will continue to taper steroids as per response 4. Tobacco abuse with dependency 5. Pneumonia presumed gram-negative, will continue with current antibiotics 6. Stable coronary artery disease 7. Hyperlipidemia currently on statin 8. Hypertension. Her blood pressure has been somewhat borderline to hypotensive we will continue to monitor 9. Obstructive sleep apnea currently trach dependent 10. Gastroesophageal reflux disease currently on PPI 11. Degenerative joint disease on narcotics 12. Anemia of chronic disease, hemoglobin stable
[2017-12-28] MEDS: METHYLPREDNISOLONE INJ 40 MG/1 ML SDV IV SCH (12:34)
[2017-12-28] MEDS: FENTANYL 25 MCG/HR PATCH.TD72 TD SCH (12:36)
[2017-12-28] MEDS: OXYCODONE-ACETAMINOPHEN 5-325 MG TABLET PO PRN ×2 (12:37→19:26)
[2017-12-28] MEDS: ONDANSETRON HCL INJ/PF 4 MG/2 ML SDV IV PRN (14:45)
[2017-12-28 18:05] LABS: VANCOMYCIN,TROUGH 30.4 ug/mL (5.0-20.0)
[2017-12-28] MEDS: LORAZEPAM INJ 2 MG/1 ML VIAL IV PRN (23:43)
[2017-12-29] MEDS: PIPERACILLIN SODIUM/TAZOBACTAM 4.5 GM in NORMAL SALINE 100 ML IV SCH ×3 (01:03→11:38)
[2017-12-29] MEDS: DIPHENHYDRAMINE HCL 50 MG/ML VIAL IV SCH ×2 (01:04→11:42)
[2017-12-29] MEDS ORDERED: ZOLPIDEM TARTRATE 5 MG TABLET PO ONE (03:00)
[2017-12-29] MEDS: METOPROLOL TARTRATE PF/INJ 5 MG/5 ML SDV IV SCH ×2 (06:37→11:41)
[2017-12-29] MEDS: PANTOPRAZOLE SODIUM 40 MG VIAL IV SCH (06:38)
[2017-12-29] MEDS: LEVALBUTEROL HCL NEB 1.25 MG/3 ML AMPUL NEB SCH ×3 (08:47→19:58)
[2017-12-29] MEDS: NICOTINE 14 MG/24 HR PATCH.TD24 TD SCH (11:38)
[2017-12-29] MEDS: NITROGLYCERIN 10 MG (0.4 MG/HR) PATCH.TD24 TOP SCH (11:38)
[2017-12-29] MEDS: ENOXAPARIN SODIUM INJ 40 MG/0.4 ML DISP.SYRIN SUBCUT SCH (11:39)
[2017-12-29] MEDS: NYSTATIN TOPICAL POWDER 15 GM TP SCH ×2 (11:40→17:43)
[2017-12-29] MEDS: METHYLPREDNISOLONE INJ 40 MG/1 ML SDV IV SCH (11:41)
--- NOTE | 2017-12-29 12:44 | PDOC PROGRESS REPORT ---
Subjective Progress Note for:: 12/29/17 Subjective:: Patient awaiting transfer to [facility]. c/no new complaints Reason For Visit: PNEUMONIA Physical Exam Vital Signs: Temp Pulse Resp BP Pulse Ox 97.9 F 78 16 117/52 L 96 12/29/17 07:36 12/29/17 08:47 12/29/17 08:47 12/29/17 07:36 12/29/17 12:00 Intake & Output 12/28/17 12/29/17 12/30/17 06:59 06:59 06:59 Intake Total 1613 1138 Output Total 1100 1600 Balance 513 -462 Weight 83.5 kg 83.5 kg General appearance: PRESENT: no acute distress Head exam: PRESENT: atraumatic Mouth exam: PRESENT: tongue midline Neck exam: PRESENT: tracheostomy Cardiovascular exam: PRESENT: RRR. ABSENT: diastolic murmur, rubs, systolic murmur Rectal exam: PRESENT: deferred Extremities exam: PRESENT: full ROM. ABSENT: calf tenderness, clubbing, pedal edema Results Laboratory Results: 12/28/17 06:29 12/28/17 17:35 12/28/17 17:35 Creatinine 0.66 Est GFR ( Amer) > 60 Est GFR (Non-Af Amer) > 60 Impressions: Chest X-Ray 12/23/17 11:23 IMPRESSION: NO ACUTE RADIOGRAPHIC FINDING IN THE CHEST. Guidance Fluoroscopy 12/24/17 00:00 IMPRESSION: SUCCESSFUL PLACEMENT OF A 5 FR DUAL LUMEN 32 CM PICC IN THE RIGHT BASILIC VEIN. Interventional Vascular Procedure 12/24/17 00:00 IMPRESSION: SUCCESSFUL PLACEMENT OF A 5 FR DUAL LUMEN 32 CM PICC IN THE RIGHT BASILIC VEIN. PICC Line Insertion 12/24/17 00:00 IMPRESSION: SUCCESSFUL PLACEMENT OF A 5 FR DUAL LUMEN 32 CM PICC IN THE RIGHT BASILIC VEIN. Assessment & Plan - Time Time Spent with patient: 15-24 minutes Medications reviewed and adjusted accordingly: Yes Anticipated discharge: [facility] Within: when bed available - Inpatient Certification Based on my medical assessment, after consideration of the patient's comorbidities, presenting symptoms, or acuity I expect that the services needed warrant INPATIENT care.: Yes Medical Necessity: Significant Comorbidiites Make Outpatient Treatment Too Risky , Need Close Monitoring Due to Risk of Patient Decompensation - Plan Summary Plan Summary: 1. MRSA bacteremia Cont vancomycin. She is currently awaiting transfer to [facility] for further management and evaluation. 2. Sepsis secondary to #1 patient is clinicallyimproving 3. Chronic obstructive pulmonary disease with tracheostomy will continue to taper steroids as per response 4. Tobacco abuse with dependency 5. Pneumonia presumed gram-negative, will continue with current antibiotics 6. Stable coronary artery disease 7. Hyperlipidemia currently on statin 8. Hypertension. Adjust antihypertensive 9. Obstructive sleep apnea currently trach dependent 10. Gastroesophageal reflux disease currently on PPI 11. Degenerative joint disease on narcotics 12. Anemia of chronic disease, hemoglobin stable
[2017-12-29] MEDS: OXYCODONE-ACETAMINOPHEN 5-325 MG TABLET PO PRN (17:40)
[2017-12-29] MEDS: DIPHENHYDRAMINE HCL 50 MG/ML VIAL IV PRN (21:19)
[2017-12-29] MEDS: METOPROLOL TARTRATE 25 MG TABLET PO SCH (21:22)
[2017-12-29] MEDS: VANCOMYCIN HCL 1,000 MG in DEXTROSE 5%-WATER 250 ML IV SCH (21:24)
[2017-12-29] MEDS: INSULIN LISPRO 100 UNIT/ML 3 ML VIAL SUBCUT PRN (22:20)
[2017-12-30] MEDS ORDERED: ZOLPIDEM TARTRATE 5 MG TABLET PO ONE (00:30)
[2017-12-30] MEDS: LEVALBUTEROL HCL NEB 1.25 MG/3 ML AMPUL NEB SCH ×3 (08:20→20:41)
[2017-12-30] MEDS: PREDNISONE 5 MG TABLET PO SCH (10:41)
[2017-12-30] MEDS: NICOTINE 14 MG/24 HR PATCH.TD24 TD SCH (10:42)
[2017-12-30] MEDS: VANCOMYCIN HCL 1,000 MG in DEXTROSE 5%-WATER 250 ML IV SCH ×2 (10:42→22:32)
[2017-12-30] MEDS: ENOXAPARIN SODIUM INJ 40 MG/0.4 ML DISP.SYRIN SUBCUT SCH (10:42)
[2017-12-30] MEDS: NITROGLYCERIN 10 MG (0.4 MG/HR) PATCH.TD24 TOP SCH (10:42)
[2017-12-30] MEDS: METOPROLOL TARTRATE 25 MG TABLET PO SCH ×2 (10:42→21:32)
[2017-12-30] MEDS: OXYCODONE-ACETAMINOPHEN 5-325 MG TABLET PO PRN ×2 (10:48→16:43)
[2017-12-30] MEDS: NYSTATIN TOPICAL POWDER 15 GM TP SCH ×2 (10:49→18:34)
--- NOTE | 2017-12-30 13:49 | PDOC PROGRESS REPORT ---
Subjective Progress Note for:: 12/30/17 Subjective:: Patient still awaiting transfer to [facility]. no new complaints Spouse at bedside Reason For Visit: PNEUMONIA Physical Exam Vital Signs: Temp Pulse Resp BP Pulse Ox 98.8 F 76 21 H 135/55 H 94 12/30/17 11:23 12/30/17 11:23 12/30/17 11:23 12/30/17 11:23 12/30/17 11:23 Intake & Output 12/29/17 12/30/17 12/31/17 06:59 06:59 06:59 Intake Total 1138 1362 Output Total 1600 750 Balance -462 612 Weight 83.5 kg 83.2 kg General appearance: PRESENT: no acute distress Head exam: PRESENT: atraumatic Neck exam: PRESENT: tracheostomy Respiratory exam: PRESENT: crackles, rhonchi, unlabored. ABSENT: rales, wheezes Cardiovascular exam: PRESENT: RRR. ABSENT: diastolic murmur, rubs, systolic murmur Pulses: PRESENT: normal dorsalis pedis pul GI/Abdominal exam: PRESENT: normal bowel sounds, soft. ABSENT: distended, guarding, mass, organolmegaly, rebound, tenderness Rectal exam: PRESENT: deferred Extremities exam: PRESENT: full ROM. ABSENT: calf tenderness, clubbing, pedal edema Neurological exam: PRESENT: alert, awake Results Laboratory Results: 12/28/17 06:29 12/28/17 17:35 Impressions: Chest X-Ray 12/23/17 11:23 IMPRESSION: NO ACUTE RADIOGRAPHIC FINDING IN THE CHEST. Guidance Fluoroscopy 12/24/17 00:00 IMPRESSION: SUCCESSFUL PLACEMENT OF A 5 FR DUAL LUMEN 32 CM PICC IN THE RIGHT BASILIC VEIN. Interventional Vascular Procedure 12/24/17 00:00 IMPRESSION: SUCCESSFUL PLACEMENT OF A 5 FR DUAL LUMEN 32 CM PICC IN THE RIGHT BASILIC VEIN. PICC Line Insertion 12/24/17 00:00 IMPRESSION: SUCCESSFUL PLACEMENT OF A 5 FR DUAL LUMEN 32 CM PICC IN THE RIGHT BASILIC VEIN. Assessment & Plan - Time Time Spent with patient: 15-24 minutes Medications reviewed and adjusted accordingly: Yes Anticipated discharge: [facility] Within: within 48 hours - Inpatient Certification Based on my medical assessment, after consideration of the patient's comorbidities, presenting symptoms, or acuity I expect that the services needed warrant INPATIENT care.: Yes Medical Necessity: Need for IV Antibiotics, Risk of Complication if Not Cared For in Hospital - Plan Summary Plan Summary: 1. MRSA bacteremia Cont vancomycin. She is currently awaiting transfer to [facility] for further management and evaluation. Plan is for [facility] and further management on transfer 2. Sepsis secondary to #1 patient is clinically improving 3. Chronic obstructive pulmonary disease with tracheostomy will continue to taper steroids as per response Currently on 20mg 4. Tobacco abuse with dependency 5. Pneumonia possibly gram positive, will continue with current antibiotics 6. Stable coronary artery disease 7. Hyperlipidemia currently on statin 8. Hypertension. Adjust antihypertensive 9. Obstructive sleep apnea currently trach dependent. 10. Gastroesophageal reflux disease currently on PPI 11. Degenerative joint disease -cont analgesics 12. Anemia of chronic disease, hemoglobin stable
--- NOTE | 2017-12-30 17:45 | Progress Note ---
Provider Note Provider Note: ID Consult Note Asked to review patient's chart by Pharmacy. Pt not seen and examined. Chart reviewed including VS, labs, imaging, and provider reports. Ms. Perez is a 72 yo woman with pmh including COPD, obesity, INÉS, chronic respiratory failure s/p trach, tobacco use, and DM type II who presented on 12/23/17 with c/o malaise x 3 days and increase in purulent secretions from her trach. Per H&P and ED provider notes, she had complaints of congestion and was found to have coarse breath sounds localized to R lung base and/or expiratory wheezes. She had a fever to 102 F on admission. Her WBC count was normal. Her CXR did not reveal an acute radiographic finding. BCx on 12/23 grew MRSA with vancomycin DONN of 1 in both sets. The patient was treated with vancomycin. Repeat BCx on 12/25 continued to show growth of MRSA in both sets of blood cultures. She was accepted for transfer to [facility] on 12/26/17 but has not yet received a bed assignment and remains at [place]. Her last fever was on 12/26/17. She has not had once since then. She remains on vancomycin, dosed by pharmacy. Impression/Recommendations MRSA bacteremia, complicated - The patient presented with fever and malaise and was found to have MRSA bacteremia on 12/23. The source of the MRSA bacteremia has been suspected possibly to be pneumonia, as she lacked of localizing signs/sx apart from some increase in purulent secretions from her trach and congestion, but the CXR did not show a corresponding pneumonia. The source of her MRSA bacteremia is not clear. The patient's repeat blood cultures on 12/25 remained positive, and she her last fever was on 12/26. Negative blood cultures have not yet been demonstrated. - Recommend repeat blood cultures - Continue vancomycin, dosed by pharmacy, to achieve goal troughs of 15-20 - Pursue transthoracic echocardiogram - Remain vigilant for symptoms or signs on exam that may be suggestive of metastatic foci of infection; if such signs or symptoms are present, direct evaluation accordingly (e.g. new onset pain, erythema and edema about a shoulder joint might suggest septic arthritis that might need to be evaluated with ultrasound and arthrocentesis or new onset of back pain with point tenderness over the spine might suggest need for MRI of the back to evaluate for evidence of vertebral osteomyelitis or discitis) - Anticipate that the patient may need at least 4 weeks of IV vancomycin, starting from the date of negative blood cultures - Advise against placing long-term IV line (e.g. tunneled CVL or PICC) until clearance of the bacteremia is documented Juan Santiago MD [facility] Infectious Diseases pager [phone]
[2017-12-30] MEDS: DIPHENHYDRAMINE HCL 50 MG/ML VIAL IV PRN (21:31)
[2017-12-30] MEDS: MORPHINE SULFATE 10 MG/ML INJ IV PRN (21:32)
[2017-12-30] MEDS: LORAZEPAM INJ 2 MG/1 ML VIAL IV PRN (22:40)
[2017-12-31] MEDS: OXYCODONE-ACETAMINOPHEN 5-325 MG TABLET PO PRN ×3 (02:14→20:22)
[2017-12-31] MEDS: MORPHINE SULFATE 10 MG/ML INJ IV PRN ×4 (05:03→22:24)
[2017-12-31] MEDS: LEVALBUTEROL HCL NEB 1.25 MG/3 ML AMPUL NEB SCH ×3 (07:53→20:16)
[2017-12-31] MEDS: PREDNISONE 5 MG TABLET PO SCH (10:09)
[2017-12-31] MEDS: METOPROLOL TARTRATE 25 MG TABLET PO SCH ×2 (10:09→21:44)
[2017-12-31] MEDS: NICOTINE 14 MG/24 HR PATCH.TD24 TD SCH (10:09)
[2017-12-31] MEDS: NITROGLYCERIN 10 MG (0.4 MG/HR) PATCH.TD24 TOP SCH (10:09)
[2017-12-31] MEDS: DIPHENHYDRAMINE HCL 50 MG/ML VIAL IV PRN ×2 (10:09→20:22)
[2017-12-31] MEDS: NYSTATIN TOPICAL POWDER 15 GM TP SCH ×2 (10:11→17:15)
[2017-12-31 10:18] LABS: HEMATOCRIT 34.3 % (36.0-47.0); MEAN CORPUSCULAR HEMOGLOBIN 26.9 pg (27.0-33.4); MEAN CORPUSCULAR VOLUME 84 fl (80-97); PLATELET COUNT 158 10^3/uL (150-450); RED BLOOD COUNT 4.08 10^6/uL (3.72-5.28); RED CELL DISTRIBUTION WIDTH 16.9 % (11.5-14.0); WHITE BLOOD COUNT 11.5 10^3/uL (4.0-10.5)
[2017-12-31 10:40] LABS: ANION GAP 10 (5-19); BLOOD UREA NITROGEN 13 mg/dL (7-20); CALCIUM 8.5 mg/dL (8.4-10.2); CARBON DIOXIDE 31 mmol/L (22-30); CHLORIDE 105 mmol/L (98-107); GLUCOSE 123 mg/dL (75-110); SODIUM 146.4 mmol/L (137-145)
[2017-12-31 10:42] LABS: VANCOMYCIN,TROUGH 16.9 ug/mL (5.0-20.0)
[2017-12-31 10:44] LABS: POTASSIUM 2.8 mmol/L (3.6-5.0)
[2017-12-31 10:45] LABS: ABSOLUTE MONOCYTES # (MANUAL) 0.6 10^3/uL (0.1-1.4); BASOPHILS % (MANUAL) 0 % (0-2); EOSINOPHILS % (MANUAL) 0 % (0-6); LYMPHOCYTES % (MANUAL) 17 % (13-45); METAMYELOCYTES % (MANUAL) 1 % (0); MONOCYTES % (MANUAL) 5 % (3-13); SEGMENTED NEUTROPHILS % (MAN) 77 % (42-78); TOTAL CELLS COUNTED 100
[2017-12-31 10:48] LABS: ANISOCYTOSIS 1+; PLATELET COMMENT ADEQUATE; TOXIC GRANULATION 1+
[2017-12-31] MEDS: VANCOMYCIN HCL 1,000 MG in DEXTROSE 5%-WATER 250 ML IV SCH ×2 (11:13→21:40)
[2017-12-31] MEDS: ENOXAPARIN SODIUM INJ 40 MG/0.4 ML DISP.SYRIN SUBCUT SCH (11:14)
[2017-12-31] MEDS: POTASSIUM CHLORIDE 10 MEQ TABLET.SA PO SCH ×2 (11:58→17:15)
[2017-12-31] MEDS: FENTANYL 25 MCG/HR PATCH.TD72 TD SCH (13:08)
--- NOTE | 2017-12-31 13:48 | PDOC PROGRESS REPORT ---
Subjective Progress Note for:: 12/31/17 Subjective:: Patient still awaiting transfer to [facility]. Spouse at bedside Patient's chart was reviewed by infectious disease and the suggestion is to repeat blood cultures, continue vancomycin and possible transthoracic echocardiogram. Patient is currently waiting to be transferred to [facility] and for the transthoracic echo to be done. Continue to watch out for metastatic foci of infection however currently patient denies any back pain or joint pain or any other pertinent symptoms and there is no new systolic murmur on examination. We will obtain repeat blood cultures. Suggestion is for 4 weeks of IV vancomycin started from the date of last negative blood cultures and I do suggest avoiding placing PICC line and all the vascular access until clearance of bacteremia is documented Reason For Visit: PNEUMONIA Physical Exam Vital Signs: Temp Pulse Resp BP Pulse Ox 98.7 F 77 18 127/49 H 98 12/31/17 11:53 12/31/17 13:28 12/31/17 13:28 12/31/17 11:53 12/31/17 13:28 Intake & Output 12/30/17 12/31/17 01/01/18 06:59 06:59 06:59 Intake Total 1362 1220 238 Output Total 750 1475 300 Balance 612 -255 -62 Weight 83.2 kg General appearance: PRESENT: no acute distress Head exam: PRESENT: atraumatic Eye exam: PRESENT: conjunctiva pink, EOMI, PERRLA. ABSENT: scleral icterus Ear exam: PRESENT: normal external ear exam Neck exam: PRESENT: tracheostomy Respiratory exam: PRESENT: crackles, decreased breath sounds, rhonchi, unlabored GI/Abdominal exam: PRESENT: normal bowel sounds, soft. ABSENT: distended, guarding, mass, organolmegaly, rebound, tenderness Rectal exam: PRESENT: deferred Musculoskeletal exam: PRESENT: ambulatory Neurological exam: PRESENT: alert, awake, oriented to person, oriented to place Results Laboratory Results: 12/31/17 09:57 12/31/17 09:57 12/31/17 12/31/17 09:57 09:57 WBC 11.5 H RBC 4.08 Hgb 11.0 L Hct 34.3 L MCV 84 MCH 26.9 L MCHC 32.0 RDW 16.9 H Plt Count 158 Seg Neutrophils % Not Reportable Lymphocytes % Not Reportable Monocytes % Not Reportable Eosinophils % Not Reportable Basophils % Not Reportable Absolute Neutrophils Not Reportable Absolute Lymphocytes Not Reportable Absolute Monocytes Not Reportable Absolute Eosinophils Not Reportable Absolute Basophils Not Reportable Sodium 146.4 H Potassium 2.8 L* Chloride 105 Carbon Dioxide 31 H Anion Gap 10 BUN 13 Creatinine 0.61 Est GFR ( Amer) > 60 Est GFR (Non-Af Amer) > 60 Glucose 123 H Calcium 8.5 Impressions: Chest X-Ray 12/23/17 11:23 IMPRESSION: NO ACUTE RADIOGRAPHIC FINDING IN THE CHEST. Guidance Fluoroscopy 12/24/17 00:00 IMPRESSION: SUCCESSFUL PLACEMENT OF A 5 FR DUAL LUMEN 32 CM PICC IN THE RIGHT BASILIC VEIN. Interventional Vascular Procedure 12/24/17 00:00 IMPRESSION: SUCCESSFUL PLACEMENT OF A 5 FR DUAL LUMEN 32 CM PICC IN THE RIGHT BASILIC VEIN. PICC Line Insertion 12/24/17 00:00 IMPRESSION: SUCCESSFUL PLACEMENT OF A 5 FR DUAL LUMEN 32 CM PICC IN THE RIGHT BASILIC VEIN. Assessment & Plan - Time Time Spent with patient: 15-24 minutes Medications reviewed and adjusted accordingly: Yes Anticipated discharge: [facility] Within: within 48 hours - Inpatient Certification Based on my medical assessment, after consideration of the patient's comorbidities, presenting symptoms, or acuity I expect that the services needed warrant INPATIENT care.: Yes Medical Necessity: Need for IV Antibiotics, Risk of Complication if Not Cared For in Hospital - Plan Summary Plan Summary: 1. MRSA bacteremia Cont vancomycin. She is still awaiting transfer to [facility] for further management and evaluation. Plan is for [facility] 2. Sepsis secondary to #1 patient is clinically improving 3. Chronic obstructive pulmonary disease with tracheostomy will continue to taper steroids as per response Currently on 20mg 4. Tobacco abuse with dependency 5. Pneumonia possibly gram positive, MRSA and possible source of bacteremia. will continue with current antibiotics 6. Stable coronary artery disease 7. Hyperlipidemia currently on statin 8. Hypertension. Adjust antihypertensive 9. Obstructive sleep apnea currently trach dependent. 10. Gastroesophageal reflux disease currently on PPI 11. Degenerative joint disease -cont analgesics 12. Anemia of chronic disease, hemoglobin stable 13. Hypokalemia- replace
[2017-12-31] MEDS: INSULIN LISPRO 100 UNIT/ML 3 ML VIAL SUBCUT PRN (22:21)
[2017-12-31] MEDS: LORAZEPAM INJ 2 MG/1 ML VIAL IV PRN (23:53)
[2018-01-01] MEDS: OXYCODONE-ACETAMINOPHEN 5-325 MG TABLET PO PRN ×3 (01:28→13:07)
[2018-01-01] MEDS: MORPHINE SULFATE 10 MG/ML INJ IV PRN ×3 (04:04→17:48)
[2018-01-01 06:12] LABS: HEMOGLOBIN 10.7 g/dL (12.0-15.5); MEAN CORPUSCULAR HEMOGLOBIN 27.2 pg (27.0-33.4); MEAN CORPUSCULAR HGB CONC 32.6 g/dL (32.0-36.0); MEAN CORPUSCULAR VOLUME 84 fl (80-97); PLATELET COUNT 171 10^3/uL (150-450); RED BLOOD COUNT 3.95 10^6/uL (3.72-5.28); RED CELL DISTRIBUTION WIDTH 17.2 % (11.5-14.0); WHITE BLOOD COUNT 11.2 10^3/uL (4.0-10.5)
[2018-01-01 06:28] LABS: ANION GAP 6 (5-19); BLOOD UREA NITROGEN 17 mg/dL (7-20); CALCIUM 8.6 mg/dL (8.4-10.2); CARBON DIOXIDE 33 mmol/L (22-30); CHLORIDE 107 mmol/L (98-107); GLUCOSE 75 mg/dL (75-110); SODIUM 145.8 mmol/L (137-145)
[2018-01-01 06:40] LABS: POTASSIUM 4.2 mmol/L (3.6-5.0)
[2018-01-01 07:14] LABS: ABSOLUTE LYMPHOCYTES# (MANUAL) 1.5 10^3/uL (0.5-4.7); ABSOLUTE MONOCYTES # (MANUAL) 0.9 10^3/uL (0.1-1.4); ABSOLUTE NEUTROPHILS# (MANUAL) 8.8 10^3/uL (1.7-8.2); BASOPHILS % (MANUAL) 0 % (0-2); EOSINOPHILS % (MANUAL) 0 % (0-6); LYMPHOCYTES % (MANUAL) 13 % (13-45); METAMYELOCYTES % (MANUAL) 2 % (0); MONOCYTES % (MANUAL) 8 % (3-13); SEGMENTED NEUTROPHILS % (MAN) 77 % (42-78); TOTAL CELLS COUNTED 100
[2018-01-01 07:15] LABS: ANISOCYTOSIS 1+; OVALOCYTES SLIGHT; PLATELET COMMENT ADEQUATE; POIKILOCYTOSIS SLIGHT; POLYCHROMASIA SLIGHT; ROULEAUX SLIGHT
[2018-01-01] MEDS: LEVALBUTEROL HCL NEB 1.25 MG/3 ML AMPUL NEB SCH ×3 (08:25→19:50)
[2018-01-01] MEDS: ENOXAPARIN SODIUM INJ 40 MG/0.4 ML DISP.SYRIN SUBCUT SCH (09:23)
[2018-01-01] MEDS: PREDNISONE 5 MG TABLET PO SCH (09:24)
[2018-01-01] MEDS: NITROGLYCERIN 10 MG (0.4 MG/HR) PATCH.TD24 TOP SCH (09:25)
[2018-01-01] MEDS: NICOTINE 14 MG/24 HR PATCH.TD24 TD SCH (09:25)
[2018-01-01] MEDS: METOPROLOL TARTRATE 25 MG TABLET PO SCH (09:26)
[2018-01-01] MEDS: NYSTATIN TOPICAL POWDER 15 GM TP SCH ×2 (09:26→17:40)
[2018-01-01] MEDS: VANCOMYCIN HCL 1,000 MG in DEXTROSE 5%-WATER 250 ML IV SCH (09:35)
[2018-01-01 16:45] VITALS: BP 108/44
--- NOTE | 2018-01-01 17:08 | PDOC TRANSFER SUMMARY ---
General Admission Date/PCP: 12/23/17 13:41 TYSON ROLDAN MD Admission Date: 12/27/17 Transfer Date: 01/01/18 Accepting Facility: [facility] Accepting Physician: Dr Hicks Resuscitation Status: Full Code - Transfer Diagnosis (1) Sepsis Is this a current diagnosis for this admission?: Yes (2) MRSA bacteremia Is this a current diagnosis for this admission?: Yes Diagnosis Summary: The patient has had 2 sets of blood cultures positive for MRSA. Repeat cultures were drawn today. She is being transferred to [facility] for infectious disease evaluation and consideration of a LEELEE. (3) COPD (chronic obstructive pulmonary disease) Is this a current diagnosis for this admission?: Yes (4) Tracheostomy dependence Is this a current diagnosis for this admission?: Yes (5) Obesity (BMI 30-39.9) Is this a current diagnosis for this admission?: Yes (6) Hypertension Is this a current diagnosis for this admission?: Yes (7) INÉS (obstructive sleep apnea) Is this a current diagnosis for this admission?: Yes (8) Hypernatremia Is this a current diagnosis for this admission?: Yes (10) Anemia of chronic disease Is this a current diagnosis for this admission?: Yes (11) Coronary artery disease Is this a current diagnosis for this admission?: Yes (12) Diabetes mellitus Is this a current diagnosis for this admission?: Yes (13) GERD (gastroesophageal reflux disease) Is this a current diagnosis for this admission?: Yes (14) Hyperlipidemia Is this a current diagnosis for this admission?: Yes (15) Hypokalemia Is this a current diagnosis for this admission?: Yes (16) Osteoarthritis of right hip Is this a current diagnosis for this admission?: Yes (17) Tobacco dependency Is this a current diagnosis for this admission?: Yes (18) Full code status Is this a current diagnosis for this admission?: Yes - Transfer Medications Home Medications: Nicotine [Nicoderm 14 mg/24 Hr Transdermal Patch] 1 patch TD DAILY 12/23/17 Nystatin [Mycostatin Topical Powder 15 gm] 1 applic TP BID MDD UNDER BREAST Transfer Medications: Current Medications Acetaminophen (Tylenol 650 Mg Supp) 650 mg AL Q6HP PRN PRN Reason: FEVER Stop: 01/24/18 12:15 Last Admin: 12/27/17 18:11 Dose: 650 mg Dextrose (Dextrose Inj 50% Syringe (25 Gm/50 Ml)) 12.5 gm IV PRN PRN; Protocol PRN Reason: FOR BG 50-69 IN ALERT PATIENT Stop: 01/22/18 13:45 Dextrose (Dextrose Inj 50% Syringe (25 Gm/50 Ml)) 25 gm IV PRN PRN; Protocol PRN Reason: PER PROTOCOL Stop: 01/22/18 13:45 Diphenhydramine HCl (Benadryl Inj 50 Mg/1 Ml Vial) 25 mg IV Q12HP PRN PRN Reason: PRIOR TO VANC DOSE Stop: 01/28/18 20:59 Last Admin: 12/31/17 20:22 Dose: 25 mg Enoxaparin Sodium (Lovenox Inj 40 Mg/0.4 Ml Disp.Syrin) 40 mg SUBCUT DAILY [facility] Stop: 01/23/18 09:59 Last Admin: 01/01/18 09:23 Dose: 40 mg Fentanyl (Duragesic 25 Mcg/Hr Transdermal Patch) 1 each TD Q3DAYS@1300 [facility] Stop: 01/08/18 12:59 Last Admin: 12/31/17 13:08 Dose: 1 each Glucagon (Glucagen Inj 1 Mg Vial) 1 mg IM PRN PRN; Protocol PRN Reason: Evaluate for BG < 70 Stop: 01/22/18 13:45 Glucose (Glutose 40% Gel 15 Gm Tube) 15 gm PO PRN PRN; Protocol PRN Reason: FOR BG 50-69 IN ALERT PATIENT Stop: 01/22/18 13:45 Glucose (Glutose 40% Gel 15 Gm Tube) 30 gm PO PRN PRN; Protocol PRN Reason: FOR BG < 50 IN ALERT PATIENT Stop: 01/22/18 13:45 Vancomycin HCl 1,000 mg/ (Dextrose) 250 mls @ 166.667 mls/hr IV Q12 [facility]AW Stop: 01/05/18 21:59 Last Admin: 01/01/18 09:35 Dose: 1,000 mg Insulin Human Lispro (Humalog Insulin 100 Unit/1 Ml 3 Ml Vial) 0 - 12 unit SUBCUT ACHSP PRN; Protocol PRN Reason: PER PROTOCOL Stop: 01/22/18 13:45 Last Admin: 12/31/17 22:21 Dose: 4 unit Levalbuterol HCl (Xopenex Neb 0.63 Mg/3 Ml Ampul) 0.63 mg NEB RTQ4HP PRN PRN Reason: SHORTNESS OF BREATH Stop: 01/24/18 11:06 Last Admin: 12/27/17 22:45 Dose: 0.63 mg Levalbuterol HCl (Xopenex Neb 1.25 Mg/3 Ml Ampul) 1.25 mg NEB [id number] SHAW Stop: 01/24/18 11:14 Last Admin: 01/01/18 14:03 Dose: 1.25 mg Lorazepam (Ativan Inj 2 Mg/1 Ml Vial) 1 mg IV Q4HP PRN PRN Reason: ANXIETY/AGITATION Stop: 01/08/18 14:54 Last Admin: 12/31/17 23:53 Dose: 1 mg Metoprolol Tartrate (Lopressor 25 Mg Tablet) 12.5 mg PO Q12 SHAW Stop: 01/28/18 21:59 Last Admin: 01/01/18 09:26 Dose: 12.5 mg Morphine Sulfate (Morphine 10 Mg/Ml Inj) 1 mg IV Q6HP PRN PRN Reason: FOR PAIN SCALE 3-5 Stop: 01/04/18 11:55 Last Admin: 01/01/18 10:44 Dose: 1 mg Nicotine (Nicoderm 14 Mg/24 Hr Transdermal Patch) 1 each TD DAILY [facility] Stop: 01/24/18 09:59 Last Admin: 01/01/18 09:25 Dose: 1 each Nitroglycerin (Nitro-Dur 10 Mg (0.4mg/Hr) Transdermal Patch) 1 each TOP DAILY [facility]WA Stop: 01/24/18 09:59 Last Admin: 01/01/18 09:25 Dose: 1 each Nystatin (Mycostatin Topical Powder 15 Gm) 1 applic TP BID [facility]AW Stop: 01/07/18 17:59 Last Admin: 01/01/18 09:26 Dose: 1 applic Ondansetron HCl (Zofran Inj/Pf 4 Mg/2 Ml Sdv) 4 mg IV Q4HP PRN PRN Reason: FOR NAUSEA/VOMITING Stop: 01/22/18 13:18 Last Admin: 12/28/17 14:45 Dose: 4 mg Oxycodone/Acetaminophen (Percocet 5-325 Mg Tablet) 1 tab PO Q6HP PRN PRN Reason: FOR PAIN Stop: 01/04/18 09:41 Last Admin: 05/09/18 13:07 Dose: 1 tab Prednisone (Deltasone 5 Mg Tablet) 20 mg PO DAILY [facility] Stop: 01/29/18 09:59 Last Admin: 01/01/18 09:24 Dose: 20 mg Sodium Chloride (Saline Flush 2.5 Ml Monoject Prefil Syrin) 2.5 ml IV Q8 [facility] Stop: 01/22/18 13:59 Last Admin: 01/01/18 13:15 Dose: 2.5 ml - Allergies Allergies/Adverse Reactions: vancomycin Allergy (Verified 12/23/17 11:25) Generalized Itching levofloxacin Adverse Reaction (Verified 12/23/17 11:25) Diarrhea linezolid [From Zyvox] Adverse Reaction (Verified 12/23/17 11:25) Diarrhea - Diet/Activity Discharge Diet: Diabetic Hospital Course Hospital Course: The patient is an unfortunate 72-year-old female with a past medical history significant for chronic respiratory failure. She has a tracheostomy in place. Unfortunately she continues to smoke. The patient presented to the emergency room due to general malaise. She was hospitalized in our facility in August of this year and was in the ICU intubated for greater than 2 weeks. During that hospitalization she received a tracheostomy and PEG tube and was discharged to subacute rehabilitation. The patient reported feeling poorly for 72 hours prior to admission with increased purulent flag phlegm from her tracheostomy. She was noted in the ER to have a fever greater than 102. She was referred from the emergency room for admission. The patient was admitted to an [facility] level of care. Blood cultures drawn on 12/23/2017 were positive for MRSA. She was covered with IV vancomycin. Urine culture revealed no growth. Repeat blood cultures on 12/25/2017 once again were positive for MRSA. The patient has remained afebrile since starting antibiotics. She initially was covered with IV Rocephin and azithromycin. Her antibiotic coverage was expanded to Zosyn and vancomycin. The patient had a PICC line placed on 12/24/2017 and this is been discontinued due to the patient's bacteremia. During this hospitalization the patient has been seen by general surgery. The patient's tracheostomy was transitioned to a cuffed trach in the case that the patient does require mechanical ventilation. All of this is been discussed with the patient including her persistent bacteremia and the need for a LEELEE. She does not feel she can make a round trip in a days time comfortably given that her condition is marginal. Therefore it is recommended transfer to a tertiary center for full infectious disease workup as well as a LEELEE. Initially efforts were underway to get the patient transferred to [place]. She was accepted at their facility but has been on the waiting list for greater than 1 week. I spoke to the patient today and she states that she would like to now try going to [place]. I spoke to Dr. Hicks who has graciously agreed to accept this patient in transfer. I was notified by the nursing staff that the patient now has a bed available and she will be transferred there today in stable condition. Physical Exam Vital Signs: Temp Pulse Resp BP Pulse Ox 98.5 F 82 20 108/44 L 91 L 01/01/18 15:24 01/01/18 15:24 01/01/18 15:24 01/01/18 15:24 01/01/18 15:24 Intake & Output 12/31/17 01/01/18 01/02/18 06:59 06:59 06:59 Intake Total 1220 1285 237 Output Total 1475 1350 325 Balance -255 -65 -88 General appearance: PRESENT: no acute distress, obese, well-developed, well- nourished Head exam: PRESENT: atraumatic, normocephalic Mouth exam: PRESENT: moist, tongue midline Neck exam: PRESENT: tracheostomy Respiratory exam: PRESENT: rhonchi - She has upper airway rhonchi. ABSENT: rales, wheezes Cardiovascular exam: PRESENT: RRR. ABSENT: diastolic murmur, rubs, systolic murmur Pulses: PRESENT: normal dorsalis pedis pul GI/Abdominal exam: PRESENT: normal bowel sounds, soft. ABSENT: distended, guarding, mass, organolmegaly, rebound, tenderness Rectal exam: PRESENT: deferred Extremities exam: PRESENT: full ROM. ABSENT: calf tenderness, clubbing, pedal edema Neurological exam: PRESENT: alert, awake, oriented to person, oriented to place , oriented to time, oriented to situation, CN II-XII grossly intact. ABSENT: motor sensory deficit Psychiatric exam: PRESENT: appropriate affect, normal mood. ABSENT: homicidal ideation, suicidal ideation Skin exam: PRESENT: dry, intact, warm. ABSENT: cyanosis, rash Results Laboratory Results: 01/01/18 05:48 01/01/18 05:48 01/01/18 01/01/18 01/01/18 05:45 05:48 05:48 WBC 11.2 H RBC 3.95 Hgb 10.7 L Hct 33.0 L MCV 84 MCH 27.2 MCHC 32.6 RDW 17.2 H Plt Count 171 Seg Neutrophils % Not Reportable Lymphocytes % Not Reportable Monocytes % Not Reportable Eosinophils % Not Reportable Basophils % Not Reportable Absolute Neutrophils Not Reportable Absolute Lymphocytes Not Reportable Absolute Monocytes Not Reportable Absolute Eosinophils Not Reportable Absolute Basophils Not Reportable Sodium 145.8 H Potassium 4.2 D Chloride 107 Carbon Dioxide 33 H Anion Gap 6 BUN 17 Creatinine 0.60 Est GFR ( Amer) > 60 Est GFR (Non-Af Amer) > 60 Glucose 75 Calcium 8.6 Phosphorus 3.1 Magnesium 2.3 Impressions: Chest X-Ray 12/23/17 11:23 IMPRESSION: NO ACUTE RADIOGRAPHIC FINDING IN THE CHEST. Guidance Fluoroscopy 12/24/17 00:00 IMPRESSION: SUCCESSFUL PLACEMENT OF A 5 FR DUAL LUMEN 32 CM PICC IN THE RIGHT BASILIC VEIN. Interventional Vascular Procedure 12/24/17 00:00 IMPRESSION: SUCCESSFUL PLACEMENT OF A 5 FR DUAL LUMEN 32 CM PICC IN THE RIGHT BASILIC VEIN. PICC Line Insertion 12/24/17 00:00 IMPRESSION: SUCCESSFUL PLACEMENT OF A 5 FR DUAL LUMEN 32 CM PICC IN THE RIGHT BASILIC VEIN. Plan Discharge Plan: She will be transverse transferred to [facility] today in stable condition under the care of Dr. Hicks Time Spent: Greater than 30 Minutes
[2018-01-01] MEDS: INSULIN LISPRO 100 UNIT/ML 3 ML VIAL SUBCUT PRN (17:40)
== END 2018-01-01 20:31 | disposition short-term general hospital (02) | DRG 871 ==
LOC: ER 11:02 → EH 13:41 → 3S 17:00
PROVIDERS: ADMIT Internal Medicine; ATTEND Internal Medicine
PROC: 3E0F73Z Introduction of Anti-inflammatory into Respiratory Tract, Via Natural or Artificial Opening (ICD-10-PCS; 2017-12-23)
PROC: 02HV33Z Insertion of Infusion Device into Superior Vena Cava, Percutaneous Approach (ICD-10-PCS; principal; 2017-12-24)
PROC: B518ZZA Fluoroscopy of Superior Vena Cava, Guidance (ICD-10-PCS; 2017-12-24)
PROC: B548ZZA Ultrasonography of Superior Vena Cava, Guidance (ICD-10-PCS; 2017-12-24)
PROC: 0B21XFZ Change Tracheostomy Device in Trachea, External Approach (ICD-10-PCS; 2017-12-25)
DX: A41.02 Sepsis due to Methicillin resistant Staphylococcus aureus (principal); J96.21 Acute and chronic respiratory failure with hypoxia; J18.9 Pneumonia, unspecified organism; J44.0 Chronic obstructive pulmonary disease with (acute) lower respiratory infection; F11.20 Opioid dependence, uncomplicated; J44.1 Chronic obstructive pulmonary disease with (acute) exacerbation; E87.0 Hyperosmolality and hypernatremia; G47.33 Obstructive sleep apnea (adult) (pediatric); L40.9 Psoriasis, unspecified; D64.9 Anemia, unspecified; F17.200 Nicotine dependence, unspecified, uncomplicated; E87.6 Hypokalemia; M16.11 Unilateral primary osteoarthritis, right hip; E78.5 Hyperlipidemia, unspecified; E11.42 Type 2 diabetes mellitus with diabetic polyneuropathy; K21.9 Gastro-esophageal reflux disease without esophagitis; F32.9 Major depressive disorder, single episode, unspecified; I25.10 Atherosclerotic heart disease of native coronary artery without angina pectoris; Z43.0 Encounter for attention to tracheostomy; Z93.1 Gastrostomy status; Z79.82 Long term (current) use of aspirin; Z79.899 Other long term (current) drug therapy; Z99.81 Dependence on supplemental oxygen; Z95.1 Presence of aortocoronary bypass graft; Z90.49 Acquired absence of other specified parts of digestive tract; Z79.4 Long term (current) use of insulin; Z86.14 Personal history of Methicillin resistant Staphylococcus aureus infection; Z82.49 Family history of ischemic heart disease and other diseases of the circulatory system; Z83.3 Family history of diabetes mellitus; Z88.1 Allergy status to other antibiotic agents; Z86.11 Personal history of tuberculosis; Z79.52 Long term (current) use of systemic steroids; Z86.19 Personal history of other infectious and parasitic diseases; Z90.710 Acquired absence of both cervix and uterus
CPT/HCPCS: 36415; 36569; 51702; 71045; 76937; 77001; 80048; 80053; 80202; 81001; 82565; 82803; 82962; 83605; 83735; 84100; 85025; 85027; 85610; 87040; 87077; 87086; 87186; 93005; 93010; 94640; 96365; 99291; C1769; G8996-GN; G8997-GN; J0456; J0696; J1200; J1642; J1650; J1815; J1940; J2060; J2270; J2405; J2543; J2920; J2930; J3370; J3490; J7030; J7040; J7060; J7512; J7614; J7620; S0164

== ENCOUNTER 2018-02-01 21:46 | Emergency (ER) | payer MEDICARE, MEDICAID ==
--- NOTE | 2018-02-01 22:38 | RADIOLOGY REPORT (SQ) ---
EXAM DESCRIPTION: CHEST SINGLE VIEW COMPLETED DATE/TIME: 02/01/2018 10:17 pm REASON FOR STUDY: sob COMPARISON: Chest x-ray 12/23/2017. EXAM PARAMETERS: NUMBER OF VIEWS: One view. TECHNIQUE: Single frontal radiographic view of the chest acquired. RADIATION DOSE: NA LIMITATIONS: None. FINDINGS: LUNGS AND PLEURA: Subsegmental atelectasis at the right midlung. No consolidation, pneumo thorax or pleural effusion. MEDIASTINUM AND HILAR STRUCTURES: No masses. Contour normal. HEART AND VASCULAR STRUCTURES: The heart is mildly enlarged. There is no overt vascular congestion. BONES: No acute findings. HARDWARE: Sternotomy wires are present. Interval removal of the tracheostomy tube. There is a right -sided PICC line with the tip overlying the region of the SVC. IMPRESSION: Mild cardiomegaly. Subsegmental atelectasis at the right midlung. TECHNICAL DOCUMENTATION: JOB ID: [id number] [employer]- All Rights Reserved Reading location - IP/workstation name: [email or web address]
[2018-02-01 22:49] LABS: ABSOLUTE BASOPHILS # (AUTO) 0.1 10^3/uL (0.0-0.2); ABSOLUTE EOSINOPHILS # (AUTO) 0.1 10^3/uL (0.0-0.6); ABSOLUTE LYMPHOCYTES (AUTO) 1.9 10^3/uL (0.5-4.7); ABSOLUTE MONOCYTES (AUTO) 0.7 10^3/uL (0.1-1.4); ABSOLUTE NEUT (AUTO) 6.7 10^3/uL (1.7-8.2); HEMATOCRIT 28.2 % (36.0-47.0); HEMOGLOBIN 8.9 g/dL (12.0-15.5); LYMPHOCYTES % (AUTO) 20.1 % (13-45); MEAN CORPUSCULAR HEMOGLOBIN 26.6 pg (27.0-33.4); MEAN CORPUSCULAR HGB CONC 31.4 g/dL (32.0-36.0); MEAN CORPUSCULAR VOLUME 85 fl (80-97); MONOCYTES % (AUTO) 7.5 % (3-13); PLATELET COUNT 251 10^3/uL (150-450); RED BLOOD COUNT 3.34 10^6/uL (3.72-5.28); RED CELL DISTRIBUTION WIDTH 19.5 % (11.5-14.0); SEGMENTED NEUTROPHILS % (AUTO) 70.4 % (42-78); TOTAL CELLS COUNTED % (AUTO) 100 %; WHITE BLOOD COUNT 9.6 10^3/uL (4.0-10.5)
[2018-02-01 23:09] LABS: ANION GAP 9 (5-19); BLOOD UREA NITROGEN 19 mg/dL (7-20); CALCIUM 8.9 mg/dL (8.4-10.2); CARBON DIOXIDE 26 mmol/L (22-30); CHLORIDE 109 mmol/L (98-107); GLUCOSE 104 mg/dL (75-110); POTASSIUM 4.5 mmol/L (3.6-5.0); SODIUM 143.9 mmol/L (137-145)
[2018-02-01 23:25] LABS: TROPONIN I 0.373 ng/mL
[2018-02-01] MEDS ORDERED: FUROSEMIDE INJ/PF 20 MG/2 ML SDV IV ONE (23:37)
--- NOTE | 2018-02-01 23:50 | ER Document Report ---
ED General - General Chief Complaint: Respiratory Distress Stated Complaint: DIFFICULTY BREATHING Time Seen by Provider: 02/01/18 21:51 Notes: Patient is a 73-year-old female with history of COPD with 3 L of oxygen dependence at baseline, coronary artery disease status post CABG, prior history of tracheostomy now resolved, recent hospitalization and treatment for mitral valve endocarditis currently still on IV vancomycin via a right brachial PICC line who presents with concerns of hypoxia and increased work of breathing. She is transferred from [facility]. Per EMS the patient has been having several days of progressively worsening shortness of breath that became more pronounced tonight. The patient herself is quite a poor historian and initially uncertain of why she is on vancomycin. She denies any overt complaints at the time of my initial evaluation other than feeling short of breath. She states that her supplement oxygen seems to help with the shortness of breath somewhat but does not help as much as it normally does. She notes that lying flat seems to be worsening her symptoms. Her at the bedside notes that she has had progressively worsening bilateral lower extremity edema that was never present prior to the past 1-2 weeks. The patient denies any chest pain, fever or constitutional symptoms. She was referred to the emergency department tonight apparently for saturating in the low 80s despite being on 3 L by nasal cannula. TRAVEL OUTSIDE OF THE [place] IN LAST 30 DAYS: No - Related Data Allergies/Adverse Reactions: vancomycin Allergy (Verified 12/23/17 11:25) Generalized Itching levofloxacin Adverse Reaction (Verified 12/23/17 11:25) Diarrhea linezolid [From Zyvox] Adverse Reaction (Verified 12/23/17 11:25) Diarrhea Past Medical History - General Information source: Patient, Relative - Social History Smoking Status: Current Every Day Smoker Frequency of alcohol use: None Drug Abuse: None Lives with: [facility] Family History: CAD, DM, Hypertension Patient has suicidal ideation: No Patient has homicidal ideation: No - Past Medical History Cardiac Medical History: Reports: Hx Coronary Artery Disease - CABG, Hx Hypercholesterolemia - zocor , Hx Hypertension Pulmonary Medical History: Reports: Hx Asthma, Hx Bronchitis, Hx COPD, Hx Pneumonia - MRSA 2014 , Hx Intubation, Hx Sleep Apnea - bipap , Hx Tuberculosis - +PPD in s - on meds x 1 year Neurological Medical History: Endocrine Medical History: Reports: Hx Diabetes Mellitus Type 1, Hx Diabetes Mellitus Type 2 Renal/ Medical History: Reports: Hx End Stage Renal Disease. Denies: Hx Peritoneal Dialysis Malignancy Medical History: GI Medical History: Reports: Hx Gastroesophageal Reflux Disease. Denies: Hx Crohn's Disease, Hx Ulcerative Colitis Musculoskeltal Medical History: Reports Hx Arthritis Skin Medical History: Reports Hx Psoriasis Psychiatric Medical History: Reports: Hx Anxiety, Hx Depression Traumatic Medical History: Reports: Hx Fractures - lumbar . Denies: Hx Traumatic Brain Injury Infectious Medical History: Reports: Hx MRSA - Reported MRSA pneumonia, 2015 Past Surgical History: Reports: Hx Appendectomy, Hx Bowel Surgery, Hx Cardiac Surgery - CABGx2, Hx Cholecystectomy, Hx Coronary Artery Bypass Graft - 2008 x 2 grafts , Hx Hysterectomy, Hx Open Heart Surgery - 3v, Hx Orthopedic Surgery - Left footsurgery, cyst removal from left hand, Hx Tonsillectomy, Other - Tracheostomy and PEG tube placement last admission - Immunizations Hx Diphtheria, Pertussis, Tetanus Vaccination: Yes Hx Pneumococcal Vaccination: 08/26/12 Review of Systems - Review of Systems Notes: Constitutional: Negative for fever. HENT: Negative for sore throat. Eyes: Negative for visual changes. Cardiovascular: Negative for chest pain. Respiratory: Positive for shortness of breath. Gastrointestinal: Negative for abdominal pain, vomiting or diarrhea. Genitourinary: Negative for dysuria. Musculoskeletal: Positive for bilateral lower extremity edema Skin: Negative for rash. Neurological: Negative for headaches, weakness or numbness. 10 point ROS negative except as marked above and in HPI. Physical Exam - Vital signs Vitals: Resp BP Pulse Ox 27 H 105/33 L 98 02/01/18 21:55 02/01/18 21:55 02/01/18 21:55 Interpretation: Hypoxic, Tachypneic Notes: PHYSICAL EXAMINATION: GENERAL: Appears to be uncomfortable, in moderate respiratory distress HEAD: Atraumatic, normocephalic. EYES: Pupils equal round and reactive to light, extraocular movements intact, sclera anicteric, conjunctiva are normal. ENT: nares patent, oropharynx clear without exudates. Moist mucous membranes. NECK: Normal range of motion, supple without lymphadenopathy LUNGS: Diffuse rales in all lung yusuf, moderate tachypnea initial respiratory rate of 30 breaths per minute. Diminished air movement at the bases bilaterally. HEART: Regular rate and rhythm without murmurs ABDOMEN: Soft, morbidly obese abdomen, nontender, normoactive bowel sounds. No guarding, no rebound. No masses appreciated. EXTREMITIES: Normal range of motion, 4+ pitting edema in the bilateral lower extremities that is equal and symmetric NEUROLOGICAL: No focal neurological deficits. Moves all extremities spontaneously and on command. PSYCH: Somewhat listless but does rouse easily, oriented 3 SKIN: Warm, Dry, normal turgor, no rashes or lesions noted. Course - Re-evaluation Re-evalutation: 02/01/18 23:00 Patient presents with increased hypoxia particularly with lying flat but denies any additional complaints. On examination patient is 4+ pitting edema in the bilateral lower extremities that is equal and symmetric. She has diffuse rales on lung examination. She is tachypneic on my initial assessment with a respiratory rate of 30 breaths per minute. She is not hypoxic however on 3 L by nasal cannula. Given her increased work of breathing and obvious pulmonary edema on examination and chest x-ray the patient has been placed on BiPAP. She has no known prior history of CHF but her clinical diagnosis is most consistent with this given her bilateral lower extremity edema, pulmonary edema as well as elevated BNP and troponin both of which she does not have a baseline. The patient apparently was transferred to [facility] at the beginning of December for bacteremia of unclear origin. There was at that time concern for possible endocarditis. I have contacted [facility] for transfer as well as clarification of her hospital course during that time as she still has a PICC line in place and continues to receive IV antibiotics. 0020-patient's work of breathing has markedly improved on BiPAP. Vitals remain within acceptable limits at this time point currently saturating 95% on 45% FiO2. Will continue to monitor. Awaiting callback from [facility]. 02/02/18 01:02 I have discussed with the accepting physician at [facility] who has accepted the patient for transfer. We have reviewed this case and she is informed that the patient was being treated with IV vancomycin for concerns of a mitral valve endocarditis. In this context I am extremely worried that the patient is developing congestive heart failure from her mitral valve endocarditis despite being treated with vancomycin. On reassessment the patient. She again continues to feel much improved on BiPAP and her initial lethargic status at time of arrival has resolved. She is now awake, conversing with her , overall much improved. The accepting physician has requested an ABG as well as a lactate which will be completed. I have updated the patient on the care plan and she is agreeable. Will continue to reassess at regular intervals. 02/02/18 03:02 Patient has remained hemodynamically within acceptable limits, work of breathing much improved after being placed on BiPAP. Transport has arrived for patient transfer. She is appropriate for transfer at this time point. - Vital Signs Vital signs: Temp Pulse Resp BP Pulse Ox 17 110/42 L 94 02/02/18 02:31 02/02/18 02:31 02/02/18 02:30 - Laboratory Result Diagrams: 02/01/18 22:33 02/01/18 22:33 Laboratory results interpreted by me: 02/01/18 02/01/18 02/01/18 22:33 22:33 22:33 RBC 3.34 L Hgb 8.9 L Hct 28.2 L MCH 26.6 L MCHC 31.4 L RDW 19.5 H Chloride 109 H NT-Pro-B Natriuret Pep 16850 H Total Protein Albumin 02/01/18 22:33 RBC Hgb Hct MCH MCHC RDW Chloride NT-Pro-B Natriuret Pep Total Protein 4.8 L Albumin 3.1 L - Diagnostic Test Radiology reviewed: Image reviewed, Reports reviewed Radiology results interpreted by me: 02/01/18 23:50 Chest x-ray: Vascular congestion and pulmonary edema with associated cardiomegaly - EKG Interpretation by Me Additional EKG results interpreted by me: 02/01/18 23:50 Sinus rhythm. Rate 74. No ST elevations or depressions. QTC is 471. Critical Care Note - Critical Care Note Total time excluding time spent on procedures (mins): 36 Comments: Critical care time spent obtaining history from patient or surrogate, discussions with consultants, development of treatment plan with patient or surrogate, evaluation of patient's response to treatment, examination of patient , ordering and performing treatments and interventions, ordering and review of laboratory studies, re-evaluation of patient's condition, ordering and review of radiographic studies and review of old charts Discharge - Discharge Clinical Impression: New onset of congestive heart failure, Respiratory distress, Hypoxia, Elevated troponin Pulmonary edema Qualifiers: Chronicity: acute Qualified Code(s): J81.0 - Acute pulmonary edema Condition: Fair Disposition: [facility]CLUD[facility] THE [facility] Referrals: TYSON ROLDAN MD [Primary Care Provider] - Follow up as needed
[2018-02-02] MEDS ORDERED: ASPIRIN 81 MG TABLET, CHEWABLE PO ONE (00:54)
[2018-02-02 01:32] LABS: ALANINE AMINOTRANSFERASE 30 U/L (9-52); ALBUMIN 3.1 g/dL (3.5-5.0); ALKALINE PHOSPHATASE 52 U/L (38-126); ASPARTATE AMINO TRANSFERASE 19 U/L (14-36); BILIRUBIN,DIRECT 0.2 mg/dL (0.0-0.4); BILIRUBIN,TOTAL 0.2 mg/dL (0.2-1.3); TOTAL PROTEIN 4.8 g/dL (6.3-8.2)
[2018-02-02 03:04] VITALS: BP 108/62
--- NOTE | 2018-02-03 07:44 | EKG REPORT ---
SEVERITY:- NORMAL ECG - SINUS RHYTHM : Confirmed by: Ming Coates MD 03-Feb-2018 07:44:20
== END 2018-02-02 03:10 | disposition short-term general hospital (02) ==
LOC: ER 21:46
DX: I11.0 Hypertensive heart disease with heart failure (principal); I50.1 Left ventricular failure, unspecified; I05.9 Rheumatic mitral valve disease, unspecified; R09.02 Hypoxemia; J44.9 Chronic obstructive pulmonary disease, unspecified; Z99.81 Dependence on supplemental oxygen; R74.8 Abnormal levels of other serum enzymes
CPT/HCPCS: 93005; 99291; 96374; 36415; 87040; 85025; 80076; 80048; 84484; 83605; 83880; 71045; 93010; A9270; J1940

== ENCOUNTER → 2018-02-10 | Outpatient (CLI) | payer MEDICARE, MEDICAID ==
[2018-02-10 16:26] LABS: HEMATOCRIT 31.3 % (36.0-47.0); HEMOGLOBIN 9.6 g/dL (12.0-15.5); MEAN CORPUSCULAR HEMOGLOBIN 25.5 pg (27.0-33.4); MEAN CORPUSCULAR HGB CONC 30.6 g/dL (32.0-36.0); MEAN CORPUSCULAR VOLUME 83 fl (80-97); PLATELET COUNT 269 10^3/uL (150-450); RED BLOOD COUNT 3.75 10^6/uL (3.72-5.28); RED CELL DISTRIBUTION WIDTH 19.5 % (11.5-14.0); WHITE BLOOD COUNT 13.8 10^3/uL (4.0-10.5)
[2018-02-10 16:31] LABS: ALANINE AMINOTRANSFERASE 41 U/L (9-52); ALBUMIN 3.2 g/dL (3.5-5.0); ALKALINE PHOSPHATASE 38 U/L (38-126); ANION GAP 7 (5-19); ASPARTATE AMINO TRANSFERASE 15 U/L (14-36); BILIRUBIN,DIRECT 0.3 mg/dL (0.0-0.4); BILIRUBIN,TOTAL 0.3 mg/dL (0.2-1.3); BLOOD UREA NITROGEN 32 mg/dL (7-20); C-REACTIVE PROTEIN 16.9 mg/L (<10.0); CALCIUM 8.8 mg/dL (8.4-10.2); CARBON DIOXIDE 34 mmol/L (22-30); CHLORIDE 105 mmol/L (98-107); GLUCOSE 129 mg/dL (75-110); SODIUM 146.3 mmol/L (137-145); TOTAL PROTEIN 5.2 g/dL (6.3-8.2)
[2018-02-10 16:33] LABS: VANCOMYCIN,TROUGH 14.1 ug/mL (5.0-20.0)
[2018-02-10 16:58] LABS: ABSOLUTE LYMPHOCYTES# (MANUAL) 4.1 10^3/uL (0.5-4.7); ABSOLUTE MONOCYTES # (MANUAL) 0.8 10^3/uL (0.1-1.4); ABSOLUTE NEUTROPHILS# (MANUAL) 8.7 10^3/uL (1.7-8.2); BASOPHILS % (MANUAL) 0 % (0-2); EOSINOPHILS % (MANUAL) 1 % (0-6); LYMPHOCYTES % (MANUAL) 30 % (13-45); MONOCYTES % (MANUAL) 6 % (3-13); SEGMENTED NEUTROPHILS % (MAN) 63 % (42-78); TOTAL CELLS COUNTED 100
[2018-02-10 16:59] LABS: ANISOCYTOSIS 2+; HYPOCHROMASIA 1+; OVALOCYTES 1+; PLATELET COMMENT ADEQUATE; POIKILOCYTOSIS 1+
== END ==
LOC: OD 13:35
PROVIDERS: ATTEND Internal Medicine
DX: A49.02 Methicillin resistant Staphylococcus aureus infection, unspecified site (principal); D50.0 Iron deficiency anemia secondary to blood loss (chronic); E87.6 Hypokalemia; I10 Essential (primary) hypertension; E50.9 Vitamin A deficiency, unspecified
CPT/HCPCS: 80053; 80202; 85025; 86140

== ENCOUNTER 2018-02-22 11:21 | Emergency (ER) | payer MEDICARE, MEDICAID ==
[2018-02-22] MEDS ORDERED: ASPIRIN 81 MG TABLET, CHEWABLE PO ONE (12:08)
[2018-02-22 12:30] LABS: ALANINE AMINOTRANSFERASE 28 U/L (9-52); ALBUMIN 3.5 g/dL (3.5-5.0); ALKALINE PHOSPHATASE 48 U/L (38-126); ANION GAP 8 (5-19); ASPARTATE AMINO TRANSFERASE 16 U/L (14-36); BILIRUBIN,DIRECT 0.4 mg/dL (0.0-0.4); BILIRUBIN,TOTAL 0.6 mg/dL (0.2-1.3); BLOOD UREA NITROGEN 23 mg/dL (7-20); CALCIUM 8.9 mg/dL (8.4-10.2); CARBON DIOXIDE 34 mmol/L (22-30); CHLORIDE 105 mmol/L (98-107); GLUCOSE 88 mg/dL (75-110); HEMATOCRIT 38.1 % (36.0-47.0); HEMOGLOBIN 11.7 g/dL (12.0-15.5); MEAN CORPUSCULAR HGB CONC 30.7 g/dL (32.0-36.0); MEAN CORPUSCULAR VOLUME 85 fl (80-97); PLATELET COUNT 190 10^3/uL (150-450); POTASSIUM 4.2 mmol/L (3.6-5.0); RED BLOOD COUNT 4.51 10^6/uL (3.72-5.28); RED CELL DISTRIBUTION WIDTH 21.4 % (11.5-14.0); SODIUM 147.3 mmol/L (137-145); TOTAL PROTEIN 5.4 g/dL (6.3-8.2); WHITE BLOOD COUNT 20.5 10^3/uL (4.0-10.5)
[2018-02-22 12:31] LABS: CREATINE KINASE < 20 U/L (30-135)
[2018-02-22 12:42] LABS: CREATINE KINASE MB 0.82 ng/mL (<4.55); TROPONIN I 0.17 ng/mL
[2018-02-22 12:48] LABS: ABSOLUTE LYMPHOCYTES# (MANUAL) 0.8 10^3/uL (0.5-4.7); ABSOLUTE MONOCYTES # (MANUAL) 0.6 10^3/uL (0.1-1.4); ABSOLUTE NEUTROPHILS# (MANUAL) 19.1 10^3/uL (1.7-8.2); BASOPHILS % (MANUAL) 0 % (0-2); EOSINOPHILS % (MANUAL) 0 % (0-6); LYMPHOCYTES % (MANUAL) 4 % (13-45); MONOCYTES % (MANUAL) 3 % (3-13); SEGMENTED NEUTROPHILS % (MAN) 93 % (42-78); TOTAL CELLS COUNTED 100
[2018-02-22 12:49] LABS: HYPOCHROMASIA SLIGHT; POLYCHROMASIA 1+
[2018-02-22 12:50] LABS: ANISOCYTOSIS 3+; OVALOCYTES 1+; PLATELET CLUMPS PRESENT; PLATELET COMMENT ADEQUATE; POIKILOCYTOSIS 1+
--- NOTE | 2018-02-22 12:55 | RADIOLOGY REPORT (SQ) ---
EXAM DESCRIPTION: CHEST SINGLE VIEW COMPLETED DATE/TIME: 02/22/2018 12:44 pm REASON FOR STUDY: cxr COMPARISON: 02/01/2018 NUMBER OF VIEWS: One view. TECHNIQUE: Single frontal radiographic view of the chest acquired. LIMITATIONS: None. FINDINGS: LUNGS AND PLEURA: No opacities, masses or pneumothorax. No pleural effusion. MEDIASTINUM AND HILAR STRUCTURES: No masses or contour abnormality. HEART AND VASCULATURE: Cardiac enlargement. Vascular congestion. BONES: No acute findings. HARDWARE: CABG hardware. OTHER: No other significant finding. IMPRESSION: CARDIAC ENLARGEMENT. VASCULAR CONGESTION. TECHNICAL DOCUMENTATION: JOB ID: [id number] [employer]- All Rights Reserved Reading location - IP/workstation name: [email or web address]
[2018-02-22] MEDS ORDERED: FUROSEMIDE INJ/PF 40 MG/4 ML SDV IV ONE (13:16)
[2018-02-22 13:50] LABS: ARTERIAL BLOOD BASE EXCESS 5.7 mmol/L; ARTERIAL BLOOD H2CO3 1.34 mmol/L (1.05-1.35); ARTERIAL BLOOD HCO3 30.4 mmol/L (20-26); ARTERIAL BLOOD O2 SATURATION 93.5 % (94-98); ARTERIAL BLOOD PCO2 44.4 mmHg (35-45); ARTERIAL BLOOD PH 7.45 (7.35-7.45); ARTERIAL BLOOD PO2 64.7 mmHg (80-100); ARTERIAL BLOOD TOTAL CO2 31.7 mmol/L (21-25)
[2018-02-22 13:51] LABS: ARTERIAL BLOOD FIO2 40%
[2018-02-22] MEDS ORDERED: ACETAMINOPHEN 650 MG SUPP.RECT PR ONE (14:04)
[2018-02-22] MEDS ORDERED: VANCOMYCIN HCL INJ 1000 MG VIAL IV ONE (14:05)
[2018-02-22 14:06] LABS: APPEARANCE,URINE TURBID; BILIRUBIN,URINE NEGATIVE (NEGATIVE); COLOR,URINE YELLOW; GLUCOSE, URINE NEGATIVE (NEGATIVE); KETONES,URINE NEGATIVE (NEGATIVE); LEUKOCYTE ESTERASE,URINE LARGE (NEGATIVE); NITRITE,URINE NEGATIVE (NEGATIVE); PROTEIN,URINE 30 mg/dL (NEGATIVE); URINE SPECIFIC GRAVITY 1.012; UROBILINOGEN,URINE NEGATIVE mg/dL (<2.0)
[2018-02-22] MEDS ORDERED: PIPERACILLIN/TAZOBACTAM 3.375 GM VIAL IV ONE (14:06)
[2018-02-22] MEDS ORDERED: NOREPINEPHRINE BITARTRATE INJ/PF 4 MG/4 ML SDV IV ONE (15:22)
[2018-02-22] MEDS ORDERED: NORMAL SALINE 500 ML IV ONE (15:23)
[2018-02-22] MEDS ORDERED: DEXTROSE 5%-WATER 250 ML with NOREPINEPHRINE BITARTRATE 4 MG IV PRN ×2 (15:24)
--- NOTE | 2018-02-22 15:46 | RADIOLOGY REPORT (SQ) ---
EXAM DESCRIPTION: CHEST SINGLE VIEW COMPLETED DATE/TIME: 02/22/2018 3:36 pm REASON FOR STUDY: CENTRAL LINE PLACEMENT COMPARISON: 02/22/2018 EXAM PARAMETERS: NUMBER OF VIEWS: One view. TECHNIQUE: Single frontal radiographic view of the chest acquired. RADIATION DOSE: NA LIMITATIONS: None. FINDINGS: LUNGS AND PLEURA: No opacities, masses or pneumothorax. No pleural effusion. MEDIASTINUM AND HILAR STRUCTURES: No masses. Contour normal. HEART AND VASCULAR STRUCTURES: Improved cardiomegaly and vascular congestion. BONES: No acute findings. HARDWARE: Venous access catheter tip in the right atrium. OTHER: No other significant finding. IMPRESSION: Improved vascular congestion. Venous access catheter. TECHNICAL DOCUMENTATION: JOB ID: [id number] [employer]- All Rights Reserved Reading location - IP/workstation name: [email or web address]
[2018-02-22 15:59] VITALS: BP 114/48
--- NOTE | 2018-02-22 16:10 | ER Document Report ---
ED General - General Chief Complaint: Respiratory Distress Stated Complaint: SHORTNESS OF BREATH Time Seen by Provider: 02/22/18 11:28 TRAVEL OUTSIDE OF THE [place] IN LAST 30 DAYS: No - HPI Patient complains to provider of: Shortness of breath Notes: Patient coming in for evaluation shortness of breath. Patient was found in her local senior living facility with SPO2 of 80% on 2 L nasal cannula. Patient has a history of COPD and CHF. According to senior living notes patient also had a fever of 101.7. Patient transported by EMS given a breathing treatment upon my evaluation patient arousable to voice however breathing heavily seems somewhat confused contribute toward to the HPI process otherwise stating that she is having difficulty breathing. Patient was transitioned over to BiPAP with improvement of her breathing. Patient otherwise denies any chest pain abdominal pain fevers chills also BiPAP patient was able to carry on a more congruent conversation. - Related Data Allergies/Adverse Reactions: vancomycin Allergy (Verified 02/22/18 11:38) Generalized Itching levofloxacin Adverse Reaction (Verified 02/22/18 11:38) Diarrhea linezolid [From Zyvox] Adverse Reaction (Verified 02/22/18 11:38) Diarrhea Past Medical History - Social History Smoking Status: Former Smoker Chew tobacco use (# tins/day): No Frequency of alcohol use: None Drug Abuse: None Family History: CAD, DM, Hypertension Patient has suicidal ideation: No Patient has homicidal ideation: No - Past Medical History Cardiac Medical History: Reports: Hx Coronary Artery Disease - CABG, Hx Hypercholesterolemia - zocor , Hx Hypertension Pulmonary Medical History: Reports: Hx Asthma, Hx Bronchitis, Hx COPD, Hx Pneumonia - MRSA 2014 , Hx Intubation, Hx Sleep Apnea - bipap , Hx Tuberculosis - +PPD in s - on meds x 1 year Neurological Medical History: Endocrine Medical History: Reports: Hx Diabetes Mellitus Type 1, Hx Diabetes Mellitus Type 2 Renal/ Medical History: Reports: Hx End Stage Renal Disease. Denies: Hx Peritoneal Dialysis Malignancy Medical History: GI Medical History: Reports: Hx Gastroesophageal Reflux Disease. Denies: Hx Crohn's Disease, Hx Ulcerative Colitis Musculoskeltal Medical History: Reports Hx Arthritis Skin Medical History: Reports Hx Psoriasis Psychiatric Medical History: Reports: Hx Anxiety, Hx Depression Traumatic Medical History: Reports: Hx Fractures - lumbar . Denies: Hx Traumatic Brain Injury Infectious Medical History: Reports: Hx MRSA - Reported MRSA pneumonia, 2015 Past Surgical History: Reports: Hx Appendectomy, Hx Bowel Surgery, Hx Cardiac Surgery - CABGx2, Hx Cholecystectomy, Hx Coronary Artery Bypass Graft - 2009 x 2 grafts , Hx Hysterectomy, Hx Open Heart Surgery - 3v, Hx Orthopedic Surgery - Left footsurgery, cyst removal from left hand, Hx Tonsillectomy, Other - Tracheostomy and PEG tube placement last admission - Immunizations Hx Diphtheria, Pertussis, Tetanus Vaccination: Yes Hx Pneumococcal Vaccination: 08/26/12 Review of Systems - Review of Systems Constitutional: Fever EENT: No symptoms reported Respiratory: Short of breath Gastrointestinal: No symptoms reported Genitourinary: No symptoms reported Female Genitourinary: No symptoms reported Musculoskeletal: No symptoms reported Skin: No symptoms reported Hematologic/Lymphatic: No symptoms reported Neurological/Psychological: No symptoms reported -: Yes All other systems reviewed and negative Physical Exam - Vital signs Vitals: Temp Pulse Resp BP Pulse Ox 99.9 F 111 H 36 H 126/53 H 100 02/22/18 11:21 02/22/18 11:21 02/22/18 11:21 02/22/18 11:21 02/22/18 11:21 Interpretation: Hypoxic, Tachypneic - General General appearance: Appears well, Alert - HEENT Head: Normocephalic, Atraumatic Eyes: Normal Pupils: PERRL - Respiratory Respiratory status: Respiratory distress - Moderate Breath sounds: Normal Chest palpation: Normal - Cardiovascular Rhythm: Regular Heart sounds: Normal auscultation Murmur: No - Abdominal Inspection: Normal Distension: No distension Bowel sounds: Normal Tenderness: Nontender Organomegaly: No organomegaly - Back Back: Normal, Nontender - Extremities General upper extremity: Normal inspection, Nontender, Normal color, Normal ROM , Normal temperature General lower extremity: Normal inspection, Nontender, Edema - 3+, Normal color , Normal ROM, Normal temperature. No: Boogie's sign - Neurological Neuro grossly intact: Yes Cognition: Normal Dmitry Coma Scale Eye Opening: Spontaneous [place] Coma Scale Verbal: Oriented Dmitry Coma Scale Motor: Obeys Commands Dmitry Coma Scale Total: 15 Speech: Normal Motor strength normal: LUE, RUE, LLE, RLE Sensory: Normal - Psychological Associated symptoms: Normal affect, Normal mood - Skin Skin Temperature: Warm Skin Moisture: Dry Skin Color: Normal Course - Re-evaluation Re-evalutation: 02/22/18 16:07 The patient stay here in the ER patient had minimal improvement of her breathing whenever we would arouse the patient. Patient states still felt like she was having difficulty breathing. Chest x-ray shows signs of vascular congestion along with her physical examination of edema therefore 60 mg of Lasix was given to the patient. Patient was given a temperature Ballard upon administration temperature Ballard patient was found to have a temperature at this time of 102. Rectal Tylenol was given we did repeat perform an ABG showing no acidosis and hypercapnia. Also during this process records were given to be disjointed patient recently was discharged from [facility] for endocarditis. Patient was already given a dose of Zosyn and vancomycin was added to this. Patient urinalysis does show signs of possible infection with leukocyte esterase however after diuresing an initial attempt to transfer the patient to [facility] to the medical floor patient did decompensate becoming hypotensive with blood pressures in the 80s- 70s systolically. Incision was made to place a central line this was given on her own verbal consent was given by the patient. During placement of the central line and a small hematoma did form however central line placement in the IJ was confirmed by ultrasound also confirmed placement by x-ray. Otherwise no other complications after this lesion for was given also did give the patient 500 cc of normal saline as that possible etiology for her hyportension was overdiuresis. Patient improved after Levophed and administration of IV fluids. Patient's temperature has slowly decreased. Patient continues to improve mentally able to carry on conversation stating that she is a full code however would like us to try everything before we intubate the patient. I did discussed the case with universal grinder operator Dr. Irwin of [facility] accepted patient in transfer. Transport is currently at bedside patient is stable at this time for transfer to [facility]. - Vital Signs Vital signs: Temp Pulse Resp BP Pulse Ox 101.6 F H 111 H 24 H 114/48 L 97 02/22/18 15:57 02/22/18 11:21 02/22/18 15:57 02/22/18 15:57 02/22/18 15:57 - Laboratory Result Diagrams: 02/22/18 11:50 02/22/18 11:50 Laboratory results interpreted by me: 02/22/18 02/22/18 02/22/18 11:50 11:50 11:50 WBC 20.5 H Hgb 11.7 L MCH 26.0 L MCHC 30.7 L RDW 21.4 H Seg Neuts % (Manual) 93 H Lymphocytes % (Manual) 4 L Abs Neuts (Manual) 19.1 H ABG pO2 ABG HCO3 ABG Total CO2 ABG O2 Saturation Sodium 147.3 H Carbon Dioxide 34 H BUN 23 H Creatine Kinase < 20 L NT-Pro-B Natriuret Pep 61703 H Total Protein 5.4 L Urine Protein Urine Blood Ur Leukocyte Esterase 02/22/18 02/22/18 13:30 13:42 WBC Hgb MCH MCHC RDW Seg Neuts % (Manual) Lymphocytes % (Manual) Abs Neuts (Manual) ABG pO2 64.7 L ABG HCO3 30.4 H ABG Total CO2 31.7 H ABG O2 Saturation 93.5 L Sodium Carbon Dioxide BUN Creatine Kinase NT-Pro-B Natriuret Pep Total Protein Urine Protein 30 H Urine Blood LARGE H Ur Leukocyte Esterase LARGE H Procedures - Central Line Left Internal jugular Consent obtained: Yes - verbal Central line pre-insertion: Chloraprep applied Central line lumen type: Triple Anesthetic type: 1% Lidocaine mL's of anesthesia: 3 Ultrasound guided: Yes CM at insertion site: 20 Line secured with sutures: Yes Central line post-insertion: Blood return from lumens, Biopatch applied, Sutured , Sterile dressing applied, Position confirmed w/ CXR Number of attempts: 1 Complications: Yes - Small hematoma formed at the insertion site of the central line. Notes: 02/22/18 16:16 Small hematoma formed confirmation of placement of the central line in the IJ was performed at bedside with ultrasound and a chest x-ray. Possible small venous structure was violated during exertion the hematoma was monitored and there is no expansion of this and remains stable at this time Critical Care Note - Critical Care Note Total time excluding time spent on procedures (mins): 60 Comments: Hospital evaluation for patient with fever CHFpatient required BiPAP and hypo your pain is tension Discharge - Discharge Clinical Impression: Acute respiratory failure with hypoxia, UTI (urinary tract infection), Fever, History of endocarditis, CHF exacerbation, Diabetes mellitus type 2, controlled Condition: Good Disposition: [facility] Referrals: KENZIE ZHU MD [Primary Care Provider] - Follow up as needed
--- NOTE | 2018-02-22 22:59 | EKG REPORT ---
SEVERITY:- OTHERWISE NORMAL ECG - SINUS TACHYCARDIA : Confirmed by: Barbie Parada MD 22-Feb-2018 22:59:18
== END 2018-02-22 16:20 | disposition short-term general hospital (02) ==
LOC: ER 11:21
DX: J96.01 Acute respiratory failure with hypoxia (principal); J96.02 Acute respiratory failure with hypercapnia; I11.0 Hypertensive heart disease with heart failure; I50.9 Heart failure, unspecified; I95.9 Hypotension, unspecified; J44.9 Chronic obstructive pulmonary disease, unspecified; E11.9 Type 2 diabetes mellitus without complications; I25.10 Atherosclerotic heart disease of native coronary artery without angina pectoris; R50.9 Fever, unspecified; L76.01 Intraoperative hemorrhage and hematoma of skin and subcutaneous tissue complicating a dermatologic procedure; Y65.8 Other specified misadventures during surgical and medical care; Z95.5 Presence of coronary angioplasty implant and graft; Z87.01 Personal history of pneumonia (recurrent); Z87.891 Personal history of nicotine dependence; Z88.1 Allergy status to other antibiotic agents; Z95.1 Presence of aortocoronary bypass graft; Z86.79 Personal history of other diseases of the circulatory system
CPT/HCPCS: 36556; 93005; 36600; 99291; 51702; 96375; 96365; 96367; 36415; 87040; 82553; 82803; 82550; 85025; 87077; 80053; 81001; 84484; 87186; 83605; 83880; 71045; 93010; 94660; C1751; A9270 ×2; J1940; J3490; J7060; J7040; J3370; J2543